=== PATIENT | male | born 1955 | race Caucasian/White ===

== ENCOUNTER 2016-05-05 14:18 | Inpatient (IN) | payer OTHER, MEDICARE ==
[2016-05-05] MEDS ORDERED: ONDANSETRON 4 MG TAB.RAPDIS PO ONE (14:28)
--- NOTE | 2016-05-05 14:28 | ER Document Report ---
ED Medical Screen (RME) - General Stated Complaint: ABDOMINAL PAIN Notes: 60 yo male c/o n/v today, generalized abdominal pain. occasional sharp pain in chest epigastric area with vomiting. on home O2. hx/o COPD. TRAVEL OUTSIDE OF THE [place] IN LAST 30 DAYS: No - Related Data Allergies/Adverse Reactions: Heparin Analogues [Heparin Agents] Allergy (Severe, Verified 10/21/15 00:03) Thrombocytopenia heparinoids [Heparinoids] Allergy (Severe, Verified 10/21/15 00:03) Thrombocytopenia codeine [Codeine] Allergy (Unknown, Verified 10/21/15 00:03) GI upset Penicillins Allergy (Unknown, Verified 10/21/15 00:03) Swelling doxycycline Allergy (Verified 04/13/16 08:48) Past Medical History - Social History Family history: CAD - Past Medical History Cardiac Medical History: Reports: Hx Congestive Heart Failure - Left ventricular diastolic dysfunction, Hx Coronary Artery Disease, Hx Heart Attack, Hx Pulmonary Embolism Denies: Hx Hypercholesterolemia, Hx Hypertension Pulmonary Medical History: Reports: Hx Asthma, Hx Bronchitis, 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 Denies: Hx Hepatitis Musculoskeltal Medical History: Denies Hx Arthritis Psychiatric Medical History: Denies: Hx Depression Infectious Medical History: Denies: Hx Hepatitis Past Surgical History: Reports: Other - Left chest tube insertion. - Immunizations Hx Diphtheria, Pertussis, Tetanus Vaccination: Yes
[2016-05-05 15:08] LABS: ALANINE AMINOTRANSFERASE 47 U/L (21-72); ALBUMIN 2.4 g/dL (3.5-5.0); ALKALINE PHOSPHATASE 206 U/L (38-126); ANION GAP 9 (5-19); ASPARTATE AMINO TRANSFERASE 47 U/L (17-59); BILIRUBIN,TOTAL 2.1 mg/dL (0.2-1.3); BLOOD UREA NITROGEN 19 mg/dL (7-20); CALCIUM 7.6 mg/dL (8.4-10.2); CARBON DIOXIDE 28 mmol/L (22-30); CHLORIDE 101 mmol/L (98-107); CREATINE KINASE 57 U/L (55-170); CREATININE RESULT 1.14 mg/dL (0.52-1.25); GLUCOSE 123 mg/dL (75-110); LIPASE 127.9 U/L (23-300); POTASSIUM 3.9 mmol/L (3.6-5.0); SODIUM 138.1 mmol/L (137-145)
[2016-05-05 15:19] LABS: CREATINE KINASE MB 0.57 ng/mL (<4.55)
[2016-05-05 15:20] LABS: TROPONIN I < 0.012 ng/mL
[2016-05-05 15:31] LABS: HEMATOCRIT 42.9 % (37.9-51.0); HEMOGLOBIN 14.4 g/dL (13.5-17.0); HGB HCT DIFFERENCE 0.3; MEAN CORPUSCULAR HEMOGLOBIN 30.6 pg (27.0-33.4); MEAN CORPUSCULAR HGB CONC 33.7 g/dL (32.0-36.0); MEAN CORPUSCULAR VOLUME 91 fl (80-97); RED BLOOD COUNT 4.72 10^6/uL (4.35-5.55); RED CELL DISTRIBUTION WIDTH 18.6 % (11.5-14.0); WHITE BLOOD COUNT 19.7 10^3/uL (4.0-10.5)
[2016-05-05 15:57] LABS: BASOPHILS % (MANUAL) 0 % (0-2); EOSINOPHILS % (MANUAL) 3 % (0-6); LYMPHOCYTES % (MANUAL) 5 % (13-45); TOTAL CELLS COUNTED 100
[2016-05-05 15:58] LABS: ANISOCYTOSIS 1+; TOXIC GRANULATION SLIGHT
[2016-05-05] MEDS ORDERED: NORMAL SALINE 1000 ML 500 ML IV ONE (16:47)
[2016-05-05] MEDS ORDERED: VANCOMYCIN HCL INJ 1000 MG VIAL IV ONE (16:48)
[2016-05-05] MEDS ORDERED: CEFTRIAXONE 1 GM/D5W RTU 50 ML IV ONE (16:48)
[2016-05-05] MEDS ORDERED: LEVOFLOXACIN 750 MG/D5W RTU 150 ML IV ONE (16:48)
[2016-05-05] MEDS ORDERED: AZTREONAM INJ 1 GM VIAL IV ONE (16:48)
[2016-05-05 17:50] LABS: APPEARANCE,URINE SLIGHTLY-CLOUDY; BILIRUBIN,URINE NEGATIVE (NEGATIVE); GLUCOSE, URINE NEGATIVE (NEGATIVE); KETONES,URINE NEGATIVE (NEGATIVE); LEUKOCYTE ESTERASE,URINE NEGATIVE (NEGATIVE); NITRITE,URINE NEGATIVE (NEGATIVE); PROTEIN,URINE NEGATIVE (NEGATIVE); URINE SPECIFIC GRAVITY 1.016; UROBILINOGEN,URINE NEGATIVE mg/dL (<2.0)
[2016-05-05] MEDS ORDERED: ONDANSETRON HCL INJ/PF 4 MG/2 ML SDV IV ONE (18:50)
[2016-05-05] MEDS ORDERED: NORMAL SALINE 1000 ML 1,000 ML IV ONE (18:50)
[2016-05-05] MEDS ORDERED: MORPHINE SULFATE 10 MG/ML INJ IV PRN (18:53)
--- NOTE | 2016-05-05 18:53 | ER Document Report ---
ED General - General Chief Complaint: Abdominal Pain Stated Complaint: ABDOMINAL PAIN Cannot obtain history due to: Unstable vital signs Notes: Patient is a 60-year-old male with past history of alpha-1 antitrypsin deficiency with a history of severe emphysema oxygen dependence 3 L at baseline , liver cirrhosis, hypotension at baseline who presents with 3 days of persistent vomiting, inability to tolerate even clear liquids, diffuse abdominal pain, progressively worsening shortness of breath. Nothing improves or worsens the symptoms. He has not seen his primary care physician regarding today's concerns. He was recently just discharged from the ICU. No new medications. Describes the pain in his abdomen as a constant, dull, aching pain. Nothing improves or worsens this pain. Denies a history of similar symptoms in the past. TRAVEL OUTSIDE OF THE [place] IN LAST 30 DAYS: No - Related Data Allergies/Adverse Reactions: Heparin Analogues [Heparin Agents] Allergy (Severe, Verified 05/05/16 14:28) Thrombocytopenia heparinoids [Heparinoids] Allergy (Severe, Verified 05/05/16 14:28) Thrombocytopenia codeine [Codeine] Allergy (Unknown, Verified 05/05/16 14:28) GI upset Penicillins Allergy (Unknown, Verified 05/05/16 14:28) Swelling doxycycline Allergy (Verified 05/05/16 14:28) Past Medical History - Social History Smoking Status: Never Smoker Chew tobacco use (# tins/day): No Frequency of alcohol use: None Drug Abuse: None Lives with: Spouse/Significant other Family History: CAD, Hypertension, Other - CHF Patient has suicidal ideation: No Patient has homicidal ideation: No - Past Medical History Cardiac Medical History: Reports: Hx Congestive Heart Failure - Left ventricular diastolic dysfunction, Hx Coronary Artery Disease, Hx Heart Attack, Hx Pulmonary Embolism Denies: Hx Hypercholesterolemia, Hx Hypertension Pulmonary Medical History: Reports: Hx Asthma, Hx Bronchitis, 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 Denies: Hx Hepatitis Musculoskeltal Medical History: Denies Hx Arthritis Psychiatric Medical History: Denies: Hx Depression Infectious Medical History: Denies: Hx Hepatitis Past Surgical History: Reports: Other - Left chest tube insertion. - Immunizations Hx Diphtheria, Pertussis, Tetanus Vaccination: Yes Hx Pneumococcal Vaccination: 04/05/14 Review of Systems - Review of Systems Notes: Constitutional: Negative for fever. HENT: Negative for sore throat. Eyes: Negative for visual changes. Cardiovascular: Negative for chest pain. Respiratory: Positive for shortness of breath. Gastrointestinal: Positive for abdominal pain and vomiting. Genitourinary: Negative for dysuria. Musculoskeletal: Negative for back pain. Skin: Negative for rash. Neurological: Negative for headaches, weakness or numbness. 10 point ROS negative except as marked above and in HPI. Physical Exam - Vital signs Vitals: Temp Pulse Resp BP Pulse Ox 98.6 F 113 H 22 H 95/55 L 93 05/05/16 14:28 05/05/16 14:28 05/05/16 14:28 05/05/16 14:28 05/05/16 14:28 Interpretation: Hypotensive, Tachycardic, Tachypneic Notes: PHYSICAL EXAMINATION: GENERAL: Chronically ill in appearance and in no acute distress HEAD: Atraumatic, normocephalic. EYES: Pupils equal round and reactive to light, extraocular movements intact, sclera anicteric, conjunctiva are normal. ENT: nares patent, oropharynx clear without exudates. Moderately dry mucous membranes. NECK: Normal range of motion, supple without lymphadenopathy LUNGS: Diffuse wheezing in all lung med[place]. Mildly diminished air movement throughout. HEART: Regular tachycardia without murmurs ABDOMEN: Distended and with a fluid wave. Diffuse tenderness with voluntary guarding throughout. No rebound tenderness. EXTREMITIES: Trace edema in the bilateral lower extremities. NEUROLOGICAL: No focal neurological deficits. Moves all extremities spontaneously and on command. PSYCH: Normal mood, normal affect. SKIN: Warm, Dry, normal turgor, no rashes or lesions noted. Course - Re-evaluation Re-evalutation: 05/05/16 1720 Patient arrives ill in appearance, hypotensive and tachycardic. Patient does have baseline hypertension but not to this degree of severity. His normal systolics are in the upper 90s. Exam reveals a diffusely tender abdomen. Patient does meet sepsis criteria at time of arrival in my primary concern at this point his spontaneous bacterial peritonitis vs HCAP. Fluids, broad- spectrum IV antibiotics, and antiemetics have been administered. Patient continues on senior buyer planner. 1840-patient continues to be ill in appearance. Minimal improvement after infusion of 1 L of IV fluids. Antibiotics have been infused. Patient's abdomen remains diffusely tender. Peritoneal tap has been completed, fluid is clear in color. This has been sent for analysis. He remains critically ill this time. 05/05/16 22:32 Patient states he feels improved after fluids and anti-emetics. No evidence of SBP on labs. CT shows ileus but no clear obstruction but this would explain his vomiting and abdominal pain. Will continue to cover for possible HCAP. Repeat blood pressure at this time shows systolics in the 90s, tachycardia improved in the low 100s. Dr. Urbina has accepted for admission at this time. - Vital Signs Vital signs: Temp Pulse Resp BP Pulse Ox 99.3 F 113 H 18 72/34 L 91 L 05/05/16 18:16 05/05/16 14:28 05/05/16 22:31 05/05/16 23:09 05/05/16 22:31 - Laboratory Result Diagrams: 05/05/16 14:30 05/05/16 14:30 Laboratory results interpreted by me: 05/05/16 05/05/16 05/05/16 14:30 14:30 19:00 WBC 19.7 H RDW 18.6 H Plt Count 104 L Seg Neuts % (Manual) 85 H Lymphocytes % (Manual) 5 L Abs Neuts (Manual) 16.7 H Glucose 123 H Lactic Acid 2.3 H Calcium 7.6 L Total Bilirubin 2.1 H Alkaline Phosphatase 206 H Total Protein 6.0 L Albumin 2.4 L - Diagnostic Test Radiology reviewed: Image reviewed, Reports reviewed - EKG Interpretation by Me Additional EKG results interpreted by me: 05/06/16 00:34 Sinus tachycardia. Rate 107. No ST elevations or depressions. QTC 443. Procedures - Paracentesis RLQ Consent obtained: Yes - Verbal Paracentesis pre-procedure: Sterile PPE donned, Chloraprep applied Needle size: 22 Paracentesis location: RLQ Amount/type of drainage: 10 cc Number of attempts: 2 Ultrasound guided: Yes Complications: No Critical Care Note - Critical Care Note Total time excluding time spent on procedures (mins): 40 Comments: Critical care time spent obtaining history from patient or surrogate, discussions with consultants, development of treatment plan with patient or surrogate, evaluation of patient's response to treatment, examination of patient , ordering and performing treatments and interventions, ordering and review of laboratory studies, re-evaluation of patient's condition, ordering and review of radiographic studies and review of old charts Discharge - Discharge Clinical Impression: Ileus Hypotension Qualifiers: Hypotension type: unspecified hypotension type Qualified Code(s): I95.9 - Hypotension, unspecified Leukocytosis Qualifiers: Leukocytosis type: unspecified Qualified Code(s): D72.829 - Elevated white blood cell count, unspecified Cirrhosis of liver with ascites Qualifiers: Hepatic cirrhosis type: unspecified hepatic cirrhosis Qualified Code(s): K74.60 - Unspecified cirrhosis of liver Acute and chronic respiratory failure Qualifiers: Respiratory failure complication: hypoxia Qualified Code(s): J96.21 - Acute and chronic respiratory failure with hypoxia Sepsis Qualifiers: Sepsis type: sepsis due to unspecified organism Qualified Code(s): A41.9 - Sepsis, unspecified organism Condition: Critical Disposition: ADMITTED INPATIENT Admitting Provider: [facility] Unit Admitted: [facility]
[2016-05-05 19:59] LABS: FLUID TYPE PERITONEAL
[2016-05-05 20:00] LABS: FLUID APPEARANCE SLIGHTLY HAZY; FLUID RBC DILUENT USED NONE USED; FLUID RBC SIDE 1 93; FLUID RBC SIDE 2 95
[2016-05-05 20:01] LABS: FLUID RBC DILUTION FACTOR 1; TOTAL RBC SQUARES COUNTED FLD 225
[2016-05-05] MEDS ORDERED: INSULIN LISPRO 100 UNIT/ML 3 ML VIAL SUBCUT PRN (23:57)
[2016-05-05] MEDS ORDERED: DEXTROSE 50%-WATER 25 GM/50 ML DISP.SYRIN IV PRN ×2 (23:57)
[2016-05-05] MEDS ORDERED: DEXTROSE 40% GEL 15 GM TUBE PO PRN ×2 (23:57)
[2016-05-05] MEDS ORDERED: GLUCAGON,HUMAN RECOMB 1 MG INJ IM PRN (23:57)
[2016-05-06 00:07] LABS: ADD ON TESTING BLD IN LAB ACKNOWLEDGE
[2016-05-06 00:15] LABS: MAGNESIUM 1.7 mg/dL (1.6-2.3)
[2016-05-06 00:36] LABS: PROTHROMBIN TIME 19.2 SEC (11.4-15.4)
[2016-05-06 00:37] LABS: PARTIAL THROMBOPLASTIN TIME 30.5 SEC (23.5-35.8)
--- NOTE | 2016-05-06 00:43 | PDOC H&P ---
History of Present Illness Admission Date/PCP: 05/05/16 22:56 DUARTE YAP, [place], [place] Cards DR. Norris Patient complains of: abd pain History of Present Illness: CHATO BRAXTON SR is a 60 year old male, with underlying alpha 1 antitrypsin deficiency, with COPD and cirrhosis secondary to same, along with chronic diastolic congestive heart failure, well known to the hospitalist service for multiple admissions for respiratory problems, who presents to the emergency room for evaluation of above complaint. Patient has been discussed with emergency room physician who evaluated the patient. Onset of combination cramping and pressure-like mostly periumbilical pain the morning of the . Nausea and 3 episodes of vomiting. Normal bowel movement that morning, but none since then. Possibly flatus with urination since then. No prior nasogastric tube requirement for bowel obstruction. Chronic intermittent dysuria. No diarrhea. Chronic chills. No fever. No change in his chronic shortness of breath. No unusual cough. Several day history of bilateral calf cramping. Intermittent hypotension, with systolic pressures down into the 70s, which has responded to IV fluid. He has chronic borderline blood pressures, on midodrine for same. Diagnostic paracentesis performed by the emergency room physician. Results noted. Hospitalized on our service April 12 through the of last year with final diagnoses including acute on chronic respiratory failure with hypoxia, COPD exacerbation, and supratherapeutic INR. Copies of the history and physical and discharge summary have been reviewed. No hospital stay since then. No change in his discharge medications.. Laboratory results are listed in [facility] and are reviewed. X-ray summary results are listed below, with full report(s) reviewed. . EKG reviewed . Social history/personal habits: . Has children. On disability due to health problems. No use of alcohol tobacco or illicit drugs. Allergies/adverse reactions are listed in [facility] and are reviewed. Home medications are reviewed by discussion with patient and , and review of his recent discharge summary and are to be reconciled by nursing staff in [facility]. [facility] medications [facility] may not accurately reflect patient's true medications, dosages, and/or frequencies. REVIEW OF SYSTEMS: Constitutional: See history and present illness. Eyes: Wears glasses. ENT: No swallowing problems or complaints. No hearing problems or complaints. Pulmonary: See history and present illness. Cardiovascular: No current complaints, including chest pain. Gastrointestinal: See history and present illness. Skin: No current complaints, including rashes. Hematologic: Easy bruising. Neurologic: No current complaints, including numbness or tingling. Musculoskeletal: Joint pain from arthritis. Psychiatric: Anxiety depression; denies suicidal or homicidal ideation. Endocrine: No current complaints, including polyuria. Genitourinary: No current complaints, including dysuria. PHYSICAL EXAMINATION: 5 feet 9 inches tall. 84.3 kg. BMI 27.4 kg/m. Blood pressure 100/60 manual in the right arm; 95/62 in the left arm. Pulse 103 and regular. 90% saturation on 2 L oxygen per nasal cannula. Respirations are 30 and unlabored. Temperature 99.3. is present at his side; patient approves. Slightly overweight otherwise well-nourished well-developed though chronically ill-appearing male who appears a number of years older than his stated age. Also appears not to feel very well. Otherwise, pleasant awake alert and cooperative. Mildly anxious, without agitation. Skin is warm and dry. No grossly obvious evidence of rash in areas of skin examined. No subcutaneous nodules palpated. ENT: Hearing grossly normal to normal conversation. Tongue midline on protrusion pink and slightly tacky. Eyes: No scleral icterus. Pupils equal and reactive to light at 4 mm. Ogema conjunctivae. Neck is supple and nontender to gentle active range of motion and palpation. Midline trachea. No palpable thyroid nodule mass enlargement or tenderness. Lymphatic: No palpable cervical or clavicular nodes. Neck and lymphatic exams limited by patient body habitus. Psychiatric: Reasonable insight into acute and chronic medical issues. Oriented to time location and why here. Lungs: Auscultation reveals clear and equal breath sounds bilaterally. No use of accessory respiratory muscles. Cardiovascular: Heart regular rate and rhythm, without gallop murmur or rub. No carotid or abdominal aortic bruits. Mild bilateral symmetric calf ankle and pedal edema. Faintly palpable dorsalis pedis pulses. Abdomen: soft, obese, moderately distended with positive bowel sounds. Mild diffuse abdominal tenderness, which increases to rather prominent somewhat point tenderness at his umbilicus. Small umbilical hernia, which is easily reducible. Unable to adequately evaluate abdomen for masses or organomegaly due to body habitus, distention, and discomfort.. Extremities: Feet are warm and dry. Bilateral mild symmetric calf tenderness to compression, without venous cord. No grossly obvious visual evidence of calf swelling. Gentle manipulation of lower extremities fails to reveal any obvious evidence of injury or instability to knees hips or ankles. Neurologic: Moves upper extremities grossly normally. Patellar reflexes absent. Absent Babinski. Light touch is intact at feet. Dorsiflexion and plantarflexion of feet 5 / 5 and symmetric. Past Medical History Cardiac Medical History: Reports: Congestive Heart Failure - Left ventricular diastolic dysfunction, Coronary Artery Disease, Myocardial Infarction, Pulmonary Embolism Denies: Hyperlipidema, Hypertension Pulmonary Medical History: Reports: Asthma, Bronchitis, Chronic Obstructive Pulmonary Disease (COPD) - secondary to alpha-1 antitrypsin deficiency, Pneumonia Denies: Tuberculosis Neurological Medical History: Denies: Seizures Endocrine Medical History: Reports: Diabetes Mellitus Type 2 Denies: Hyperthyroidism, Hypothyroidism GI Medical History: Reports: Cirrhosis - [place] secondary to alpha-1 antitrypsin deficiency., Gastroesophageal Reflux Disease Denies: Hepatitis Musculoskeltal Medical History: Denies: Arthritis Psychiatric Medical History: Denies: Depression Hematology: Denies: Anemia Past Surgical History Past Surgical History: Reports: Other - Left chest tube insertion. Social History Information Source: Patient, Emergency Med Personnel, [facility] Records Lives with: Spouse/Significant other Smoking Status: Never Smoker Frequency of Alcohol Use: None Hx Recreational Drug Use: No Drugs: None Hx Prescription Drug Abuse: No - Advance Directive Resuscitation Status: Full Code Surrogate healthcare decision maker:: Family History Family History: CAD, Hypertension, Other - CHF Parental Family History Reviewed: Yes Children Family History Reviewed: Yes Sibling(s) Family History Reviewed.: Yes Medication/Allergy Home Medications: Gabapentin 25 mg PO TID 01/13/16 Potassium Chloride 20 meq PO BID 01/13/16 Tamsulosin HCl 0.4 mg PO DAILY 01/13/16 Warfarin Sodium 2 mg PO ASDIR PRN 01/13/16 Albuterol Sulfate [Ventolin 0.083% Neb 2.5 mg/3 mL Ampul] 2.5 mg NEB Q6HP PRN # 1 pkg 01/15/16 Ipratropium/Albuterol Sulfate [Duoneb 3 ml Ampul] 1 vial IH Q4H PRN 03/04/16 Albuterol Sulfate [Proair HFA Inhalation Aerosol 8.5 gm MDI] 2 puff IH Q4HP PRN #1 hfa.[email or web address] 03/06/16 Fluticasone Propionate [Flonase Nasal [place] 50 Mcg/[place] 16 gm] 2 spray NASL DAILY spray.pump 03/06/16 Ondansetron [Zofran Odt 4 mg Tablet] 4 mg PO Q6HP PRN tab.rapdis 03/06/16 Bumetanide [Bumex 1 mg Tablet] 1 mg PO BID #60 tablet 04/15/16 Levofloxacin [Levaquin 750 mg Tablet] 750 mg PO DAILY #7 tablet 04/15/16 Midodrine HCl 10 mg PO TID #90 tablet 04/15/16 Prednisone [Deltasone 10 mg Tablet] 10 mg PO DAILY #30 tablet 04/15/16 Prednisone [Deltasone 20 mg Tablet] 40 mg PO DAILY #28 tablet 04/15/16 Spironolactone [Aldactone 25 mg Tablet] 25 mg PO DAILY #30 tablet 04/15/16 Allergies/Adverse Reactions: Heparin Analogues [Heparin Agents] Allergy (Severe, Verified 05/05/16 14:28) Thrombocytopenia heparinoids [Heparinoids] Allergy (Severe, Verified 05/05/16 14:28) Thrombocytopenia codeine [Codeine] Allergy (Unknown, Verified 05/05/16 14:28) GI upset Penicillins Allergy (Unknown, Verified 05/05/16 14:28) Swelling doxycycline Allergy (Verified 05/05/16 14:28) Physical Exam Vital Signs: Temp Pulse Resp BP Pulse Ox 99.3 F 113 H 18 72/34 L 91 L 05/05/16 18:16 05/05/16 14:28 05/05/16 22:31 05/05/16 23:09 05/05/16 22:31 Results Impressions: Chest X-Ray 05/05/16 14:28 IMPRESSION: COPD. Extensive bullous changes in the bases. Small pleural effusions. No focal consolidation. Abdomen/Pelvis CT 05/05/16 20:12 IMPRESSION: 1. MILD TO MODERATE SMALL BOWEL DILATION. I SUSPECT THAT THIS IS PROBABLY DUE TO ILEUS ALTHOUGH CANNOT DEFINITELY RULE OUT POSSIBILITY OF DISTAL MECHANICAL OBSTRUCTION. 2. MILDLY IRREGULAR CONTOUR OF THE LIVER. THE PATIENT HAS A HISTORY OF CIRRHOSIS. THERE IS MILD SPLENOMEGALY AND MODERATE ASCITES, PRESUMED SECONDARY TO THE PATIENT'S CIRRHOSIS. 3. COLONIC DIVERTICULOSIS WITH NO CT FINDINGS OF ACUTE DIVERTICULITIS. 4. 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 5. NO OTHER SIGNIFICANT OR ACUTE FINDING IN THE ABDOMEN OR PELVIS ON CT SCAN WITH IV CONTRAST. Assessment & Plan - Diagnosis (1) Abnormal CT of the abdomen Is this a current diagnosis for this admission?: YesPlan: Have discussed with Dr. Teran, airline reservation agent surgeon, who will evaluate the patient and get back in touch with me. Suspect this may be partial small bowel obstruction and may need nasogastric tube. If surgery is felt necessary, will likely require transfer to a tertiary center. (2) Elevated LFTs Is this a current diagnosis for this admission?: YesPlan: Follow-up chemistry. (3) Hypotension Qualifiers: Hypotension type: unspecified hypotension type Qualified Code(s): I95.9 - Hypotension, unspecified Is this a current diagnosis for this admission?: YesPlan: ICU admission. IV fluid boluses. Vasopressor as needed. (4) Nausea & vomiting Qualifiers: Vomiting Intractability: unspecified Is this a current diagnosis for this admission?: Yes (5) Periumbilical pain Is this a current diagnosis for this admission?: YesPlan: See above comments under abnormal CT scan of abdomen. I have strongly encouraged patient not to get out of bed without notifying staff , to avoid a fall with injury. Knee high SCDs for DVT prophylaxis; with thrombocytopenia, will forego Lovenox or heparin at this point in time. Impression and plans were discussed with patient, and , both of whom concur. Time spent in evaluation and management of patient: 65 critical care minutes. (6) COPD (chronic obstructive pulmonary disease) Qualifiers: COPD type: unspecified COPD Qualified Code(s): J44.9 - Chronic obstructive pulmonary disease, unspecified Is this a current diagnosis for this admission?: YesPlan: Stable at present. Resume home medications as appropriate once these have been reviewed. (7) Anticoagulated Is this a current diagnosis for this admission?: YesPlan: PT/INR and PTT are pending. Recent hospital stay with supratherapeutic INR. (8) Diastolic CHF Qualifiers: Congestive heart failure chronicity: chronic Qualified Code(s): I50.32 - Chronic diastolic (congestive) heart failure Is this a current diagnosis for this admission?: YesPlan: Clinically stable at present. Resume home medications as appropriate once these have been reviewed. (9) Thrombocytopenia Is this a current diagnosis for this admission?: YesPlan: Follow-up CBC with differential. - Inpatient Certification Based on my medical assessment, after consideration of the patient's comorbidities, presenting symptoms, or acuity I expect that the services needed warrant INPATIENT care.: Yes I certify that my determination is in accordance with my understanding of Medicare's requirements for reasonable and necessary INPATIENT services [42 CFR 412.3e].: Yes Medical Necessity: Need Close Monitoring Due to Risk of Patient Decompensation, Need For IV Fluids, Need For Continuous Telemetry Monitoring, Need for Nebulizer Therapy and Monitoring of Response, Risk of Complication if Not Cared For in Hospital, Risk of Diagnosis Which Will Require Inpatient Eval/Care/ Monitoring Post Hospital Care: D/C or Transfer Summary
[2016-05-06 00:48] LABS: BLOOD UREA NITROGEN 22 mg/dL (7-20); CREATININE RESULT 1.06 mg/dL (0.52-1.25); GLUCOSE 95 mg/dL (75-110); POTASSIUM 4.1 mmol/L (3.6-5.0)
[2016-05-06 00:55] LABS: ANION GAP 6 (5-19); CARBON DIOXIDE 25 mmol/L (22-30); CHLORIDE 105 mmol/L (98-107); SODIUM 136.1 mmol/L (137-145)
[2016-05-06 00:59] LABS: CALCIUM 7.2 mg/dL (8.4-10.2)
[2016-05-06] MEDS ORDERED: DEXTROSE 5%-WATER 250 ML with NOREPINEPHRINE BITARTRATE 4 MG IV PRN ×2 (02:32)
[2016-05-06] MEDS ORDERED: NORMAL SALINE 1000 ML 500 ML IV ONE (02:32)
[2016-05-06] MEDS ORDERED: PHARMACY COMMUNICATION ORDER MC NR (03:00)
--- NOTE | 2016-05-06 03:40 | PDOC TRANSFER SUMMARY ---
General Admission Date/PCP: 05/06/16 00:24 ALFA GRANGER Resuscitation Status: Full Code - Transfer Diagnosis (1) Abnormal CT of the abdomen Current Visit: Yes (2) Elevated LFTs Current Visit: Yes (3) Hypotension Current Visit: Yes (4) Nausea & vomiting Current Visit: Yes (5) Periumbilical pain Current Visit: Yes (6) COPD (chronic obstructive pulmonary disease) Current Visit: Yes (7) Anticoagulated Current Visit: Yes (8) Diastolic CHF Current Visit: Yes (9) Thrombocytopenia Current Visit: Yes (10) Cirrhosis of liver with ascites Current Visit: Yes (11) Oipab-4-sldgrkkdjei deficiency Current Visit: Yes (12) History of pulmonary embolism Current Visit: Yes - Transfer Medications Home Medications: Gabapentin 25 mg PO TID 01/13/16 Potassium Chloride 20 meq PO BID 01/13/16 Tamsulosin HCl 0.4 mg PO DAILY 01/13/16 Warfarin Sodium 2 mg PO ASDIR PRN 01/13/16 Ipratropium/Albuterol Sulfate [Duoneb 3 ml Ampul] 1 vial IH Q4H PRN 03/04/16 Transfer Medications: Current Medications Albuterol/Ipratropium (Duoneb 3 Ml Ampul) 3 ml NEB RTQ4HP PRN PRN Reason: SHORTNESS OF BREATH Stop: 06/04/16 23:57 Dextrose (Dextrose Inj 50% Syringe (25 Gm/50 Ml)) 12.5 gm IV PRN PRN; Protocol PRN Reason: FOR BG 50-69 IN ALERT PATIENT Stop: 06/04/16 23:56 Dextrose (Dextrose Inj 50% Syringe (25 Gm/50 Ml)) 25 gm IV PRN PRN PRN Reason: Protocol Stop: 06/04/16 23:56 Glucagon (Glucagen Inj 1 Mg Vial) 1 mg IM PRN PRN; Protocol PRN Reason: Evaluate for BG < 70 Stop: 06/04/16 23:56 Glucose (Glutose 40% Gel 15 Gm Tube) 30 gm PO PRN PRN; Protocol PRN Reason: FOR BG < 50 IN ALERT PATIENT Stop: 06/04/16 23:56 Glucose (Glutose 40% Gel 15 Gm Tube) 15 gm PO PRN PRN; Protocol PRN Reason: FOR BG 50-69 IN ALERT PATIENT Stop: 06/04/16 23:56 Sodium Chloride (Nacl 0.9% 1000 Ml Iv Soln) 1,000 mls @ 250 mls/hr IV CONTINUOUS PRN PRN Reason: THIS MED IS NOT "PRN" Stop: 06/05/16 00:25 Norepinephrine Bitartrate 4 mg (/ Dextrose) 254 mls @ 0 mls/hr IV CONTINUOUS PRN; Protocol; Titrate PRN Reason: THIS MED IS NOT "PRN" Stop: 06/05/16 02:31 Insulin Human Lispro (Humalog Insulin 100 Unit/1 Ml 3 Ml Vial) 0 - 12 unit SUBCUT Q6HP PRN PRN Reason: Protocol Stop: 06/04/16 23:56 Morphine Sulfate (Morphine 10 Mg/Ml Inj) 4 mg IV Q2HP PRN Stop: 05/12/16 18:52 Pharmacy Profile Note (Medication Communication Order) 1 each [facility] .NOTICE NR Stop: 06/05/16 02:59 Sodium Chloride (Saline Flush 2.5 Ml Monoject Prefil Syrin) 2.5 ml IV Q8 JENNY Stop: 06/05/16 05:59 - Allergies Allergies/Adverse Reactions: Heparin Analogues [Heparin Agents] Allergy (Severe, Verified 05/05/16 14:28) Thrombocytopenia heparinoids [Heparinoids] Allergy (Severe, Verified 05/05/16 14:28) Thrombocytopenia codeine [Codeine] Allergy (Unknown, Verified 05/05/16 14:28) GI upset Penicillins Allergy (Unknown, Verified 05/05/16 14:28) Swelling doxycycline Allergy (Verified 05/05/16 14:28) Hospital Course Hospital Course: 05/06/2016: Patient seen in consultation by Dr. Teran, on-call general surgeon. Patient discussed in detail with Dr. Teran. He was able to reduce the umbilical hernia. However, patient remains fairly tender in the periumbilical region. While Dr. Teran does not feel the gentleman has an incarcerated hernia, and does not feel the patient has ischemic bowel or necessarily an acute abdomen at this point in time, he is concerned about the potential for same and the need for emergent/urgent surgery, which would necessarily need to be performed at a tertiary center, due to patient's multiple medical problems, including the underlying alpha 1 antitrypsin deficiency with associated COPD and cirrhosis, diastolic congestive heart failure, and history of pulmonary embolism, on chronic anticoagulation for same. Transfer to tertiary center recommended to patient and by Dr. Teran and myself. Patient agrees. NG insertion planned; Dr. Teran agrees. Patient agreeable. At 2:20 AM this morning, I spoke by phone with Dr. Reeves, senior applications engineer hospitalist at [facility]. Patient discussed in detail. He has graciously accepted the patient in transfer; beds are reportedly available. Plans discussed with patient and , both of whom concur. Patient has remained intermittently hypotensive, but fortunately has responded to IV fluids. Levophed drip will be instituted if necessary. Current time is 3: 30 AM. I was in the intensive care unit approximately 5 minutes ago; blood pressure 104/67 at that time, with Levophed drip not having been started. Patient awake alert pleasant and cooperative. Due to his intermittent hypotension, I have requested air transfer. Awaiting bed assignment. 80 minutes critical care time spent in evaluation and management of patient, including direct patient evaluation, multiple discussions with nursing staff, patient and , and contamination consultant, along with discussions with transfer center at [facility], and the accepting physician at [facility], along with entering of multiple orders into the electronic health record. Physical Exam Vital Signs: Temp Pulse Resp BP Pulse Ox 99.3 F 113 H 16 82/54 L 93 05/05/16 18:16 05/05/16 14:28 05/06/16 02:21 05/06/16 02:25 05/06/16 02:21 Results Impressions: Chest X-Ray 05/05/16 14:28 IMPRESSION: COPD. Extensive bullous changes in the bases. Small pleural effusions. No focal consolidation. Abdomen/Pelvis CT 05/05/16 20:12 IMPRESSION: 1. MILD TO MODERATE SMALL BOWEL DILATION. I SUSPECT THAT THIS IS PROBABLY DUE TO ILEUS ALTHOUGH CANNOT DEFINITELY RULE OUT POSSIBILITY OF DISTAL MECHANICAL OBSTRUCTION. 2. MILDLY IRREGULAR CONTOUR OF THE LIVER. THE PATIENT HAS A HISTORY OF CIRRHOSIS. THERE IS MILD SPLENOMEGALY AND MODERATE ASCITES, PRESUMED SECONDARY TO THE PATIENT'S CIRRHOSIS. 3. COLONIC DIVERTICULOSIS WITH NO CT FINDINGS OF ACUTE DIVERTICULITIS. 4. 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 5. NO OTHER SIGNIFICANT OR ACUTE FINDING IN THE ABDOMEN OR PELVIS ON CT SCAN WITH IV CONTRAST.
[2016-05-06] MEDS ORDERED: DEXTROSE 40% GEL 15 GM TUBE NG PRN ×2 (03:44)
[2016-05-06] MEDS: NORMAL SALINE 1000 ML 1,000 ML IV PRN ×3 (05:10→20:57)
[2016-05-06] MEDS ORDERED: PROMETHAZINE HCL INJ 25 MG/1 ML VIAL IV PRN (06:10)
[2016-05-06 06:42] LABS: ABSOLUTE EOSINOPHILS # (AUTO) 0.3 10^3/uL (0.0-0.6); ABSOLUTE LYMPHOCYTES (AUTO) 0.5 10^3/uL (0.5-4.7); ABSOLUTE MONOCYTES (AUTO) 0.4 10^3/uL (0.1-1.4); BASOPHILS % (AUTO) 0.2 % (0-2); EOSINOPHILS % (AUTO) 3.6 % (0-6); HEMATOCRIT 36.7 % (37.9-51.0); HEMOGLOBIN 12.6 g/dL (13.5-17.0); HGB HCT DIFFERENCE 1.1; LYMPHOCYTES % (AUTO) 5.3 % (13-45); MEAN CORPUSCULAR HGB CONC 34.5 g/dL (32.0-36.0); MEAN CORPUSCULAR VOLUME 90 fl (80-97); MONOCYTES % (AUTO) 4.8 % (3-13); RED BLOOD COUNT 4.08 10^6/uL (4.35-5.55); RED CELL DISTRIBUTION WIDTH 18.2 % (11.5-14.0); SEGMENTED NEUTROPHILS % (AUTO) 86.1 % (42-78); WHITE BLOOD COUNT 9.3 10^3/uL (4.0-10.5)
[2016-05-06 06:45] LABS: ALANINE AMINOTRANSFERASE 46 U/L (21-72); ALBUMIN 2.1 g/dL (3.5-5.0); ALKALINE PHOSPHATASE 144 U/L (38-126); ANION GAP 7 (5-19); ASPARTATE AMINO TRANSFERASE 41 U/L (17-59); BILIRUBIN,TOTAL 1.6 mg/dL (0.2-1.3); BLOOD UREA NITROGEN 21 mg/dL (7-20); CALCIUM 7.5 mg/dL (8.4-10.2); CARBON DIOXIDE 24 mmol/L (22-30); CHLORIDE 108 mmol/L (98-107); CREATININE RESULT 1.01 mg/dL (0.52-1.25); GLUCOSE 91 mg/dL (75-110); POTASSIUM 4.1 mmol/L (3.6-5.0); SODIUM 138.8 mmol/L (137-145); TOTAL PROTEIN 5.1 g/dL (6.3-8.2)
--- NOTE | 2016-05-06 09:43 | EKG REPORT ---
SEVERITY:- ABNORMAL ECG - SINUS TACHYCARDIA LOW VOLTAGE WITH RIGHT AXIS DEVIATION BORDERLINE R WAVE PROGRESSION, ANTERIOR LEADS BORDERLINE T ABNORMALITIES, ANT-LAT LEADS : Confirmed by: Olimpia Narayan MD 06-May-2016 09:41:23
--- NOTE | 2016-05-06 09:52 | PDOC CONSULTATION ---
History of Present Illness Admission Date/PCP: 05/06/16 00:24 ALFA GRANGER History of Present Illness: 60-year-old white male with multiple comorbidities including congestive heart failure, left ventricular diastolic dysfunction, coronary artery disease, heart attack, pulmonary embolism one year ago, asthma, bronchitis, COPD, alpha-1 antitrypsin deficiency, pneumonia, diabetes mellitus type II, cirrhosis, ascites , GERD, arthritis, anxiety, depression. He reports recent admission to the hospital on 04/15/2016 for pneumonia. Status post discharge he was at home and is normal state of health, which is somewhat compromised. Then, 2 days ago he had the onset of cramps in his legs and hands as well as extremely sore muscles. Yesterday he had continued cramps and sore muscles as well as the onset of abdominal pain and vomiting. He had a bowel movement the morning of 05/05/2016. He is passing flatus and has chronic fecal incontinence when passing flatus. He reports he was nauseated and vomiting bile, not food nor feculent material. He reports the pain was severe. He reports improvement in the pain since presenting to the hospital. In addition to the above symptoms he reports abdominal swelling, chills but no fever. He also reports increased shortness of breath over his baseline shortness of breath. He is a pulmonary cripple. He has a home pulse oximeter monitor. He describes having oxygen saturations in the low 70s after taking short walks in the house from room to room. Past Medical History Cardiac Medical History: Reports: Congestive Heart Failure - Left ventricular diastolic dysfunction, Coronary Artery Disease, Myocardial Infarction, Pulmonary Embolism Denies: Hyperlipidema, Hypertension Pulmonary Medical History: Reports: Asthma, Bronchitis, Chronic Obstructive Pulmonary Disease (COPD) - secondary to alpha-1 antitrypsin deficiency, Pneumonia, Other - Alpha 1 antitrypsin deficiency Denies: Tuberculosis Neurological Medical History: Denies: Seizures Endocrine Medical History: Reports: Diabetes Mellitus Type 2 Denies: Hyperthyroidism, Hypothyroidism GI Medical History: Reports: Cirrhosis - Likely secondary to alpha-1 antitrypsin deficiency., Gastroesophageal Reflux Disease Denies: Hepatitis Musculoskeltal Medical History: Reports: Arthritis Psychiatric Medical History: Reports: Depression, General Anxiety Disorder Hematology: Denies: Anemia Past Surgical History Past Surgical History: Reports: Other - Left chest tube insertion. Remote EGD and colonoscopy. Social History Information Source: Patient Lives with: Spouse/Significant other - Accompanied by . Smoking Status: Former Smoker Frequency of Alcohol Use: None Hx Recreational Drug Use: No Drugs: None Hx Prescription Drug Abuse: No - Advance Directive Resuscitation Status: Full Code Family History Family History: CAD, CVA, DM, Hypertension, Malignancy, Other - CHF Parental Family History Reviewed: Yes Children Family History Reviewed: Yes Sibling(s) Family History Reviewed.: Yes Medication/Allergy Home Medications: Gabapentin 25 mg PO TID 01/13/16 Potassium Chloride 20 meq PO BID 01/13/16 Tamsulosin HCl 0.4 mg PO DAILY 01/13/16 Warfarin Sodium 2 mg PO ASDIR PRN 01/13/16 Albuterol Sulfate [Ventolin 0.083% Neb 2.5 mg/3 mL Ampul] 2.5 mg NEB Q6HP PRN # 1 pkg 01/15/16 Ipratropium/Albuterol Sulfate [Duoneb 3 ml Ampul] 1 vial IH Q4H PRN 03/04/16 Albuterol Sulfate [Proair HFA Inhalation Aerosol 8.5 gm MDI] 2 puff IH Q4HP PRN #1 hfa.aer.ad 03/06/16 Fluticasone Propionate [Flonase Nasal Harmony 50 Mcg/Harmony 16 gm] 2 spray NASL DAILY spray.pump 03/06/16 Ondansetron [Zofran Odt 4 mg Tablet] 4 mg PO Q6HP PRN tab.rapdis 03/06/16 Bumetanide [Bumex 1 mg Tablet] 1 mg PO BID #60 tablet 04/15/16 Levofloxacin [Levaquin 750 mg Tablet] 750 mg PO DAILY #7 tablet 04/15/16 Midodrine HCl 10 mg PO TID #90 tablet 04/15/16 Prednisone [Deltasone 10 mg Tablet] 10 mg PO DAILY #30 tablet 04/15/16 Prednisone [Deltasone 20 mg Tablet] 40 mg PO DAILY #28 tablet 04/15/16 Spironolactone [Aldactone 25 mg Tablet] 25 mg PO DAILY #30 tablet 04/15/16 Allergies/Adverse Reactions: Heparin Analogues [Heparin Agents] Allergy (Severe, Verified 05/05/16 14:28) Thrombocytopenia heparinoids [Heparinoids] Allergy (Severe, Verified 05/05/16 14:28) Thrombocytopenia codeine [Codeine] Allergy (Unknown, Verified 05/05/16 14:28) GI upset Penicillins Allergy (Unknown, Verified 05/05/16 14:28) Swelling doxycycline Allergy (Verified 05/05/16 14:28) Review of Systems All systems: reviewed and no additional remarkable complaints except as stated Physical Exam Vital Signs: Temp Pulse Resp BP Pulse Ox 99.1 F 94 11 L 97/60 L 97 05/06/16 03:30 05/06/16 08:00 05/06/16 08:00 05/06/16 06:20 05/06/16 08:00 Intake & Output 05/05/16 05/06/16 05/07/16 06:59 06:59 06:59 Intake Total 1828 Output Total 550 Balance -550 1828 Weight 84.7 kg General appearance: PRESENT: mild distress - Appears to be in mild distress due to labored breathing, but patient reports this is his baseline, obese Head exam: PRESENT: normocephalic Eye exam: PRESENT: EOMI Mouth exam: PRESENT: tongue midline Neck exam: ABSENT: JVD, lymphadenopathy, tenderness, thyromegaly Respiratory exam: PRESENT: decreased breath sounds Cardiovascular exam: PRESENT: RRR GI/Abdominal exam: PRESENT: ascites, distended, hernia - Umbilical hernia. Reducible but immediately recurs. On examining patient has occasional transient second of extreme tenderness and subsequently limits exam., soft, tenderness. ABSENT: firm, guarding, rebound, rigid Extremities exam: PRESENT: +1 edema. ABSENT: tenderness Musculoskeletal exam: ABSENT: tenderness Neurological exam: PRESENT: alert, oriented to person, oriented to place, oriented to time, oriented to situation Psychiatric exam: PRESENT: normal mood Skin exam: ABSENT: rash Results Laboratory Results: 05/06/16 06:25 05/06/16 06:25 05/06/16 05/06/16 06:25 06:25 WBC 9.3 RBC 4.08 L Hgb 12.6 L Hct 36.7 L MCV 90 MCH 31.0 MCHC 34.5 RDW 18.2 H Plt Count 63 L Seg Neutrophils % 86.1 H Lymphocytes % 5.3 L Monocytes % 4.8 Eosinophils % 3.6 Basophils % 0.2 Absolute Neutrophils 8.0 Absolute Lymphocytes 0.5 Absolute Monocytes 0.4 Absolute Eosinophils 0.3 Absolute Basophils 0.0 Sodium 138.8 Potassium 4.1 Chloride 108 H Carbon Dioxide 24 Anion Gap 7 BUN 21 H Creatinine 1.01 Est GFR ( Amer) > 60 Est GFR (Non-Af Amer) > 60 Glucose 91 Calcium 7.5 L Total Bilirubin 1.6 H AST 41 ALT 46 Alkaline Phosphatase 144 H Total Protein 5.1 L Albumin 2.1 L Impressions: Chest X-Ray 05/05/16 14:28 IMPRESSION: COPD. Extensive bullous changes in the bases. Small pleural effusions. No focal consolidation. Abdomen/Pelvis CT 05/05/16 20:12 IMPRESSION: 1. MILD TO MODERATE SMALL BOWEL DILATION. I SUSPECT THAT THIS IS PROBABLY DUE TO ILEUS ALTHOUGH CANNOT DEFINITELY RULE OUT POSSIBILITY OF DISTAL MECHANICAL OBSTRUCTION. 2. MILDLY IRREGULAR CONTOUR OF THE LIVER. THE PATIENT HAS A HISTORY OF CIRRHOSIS. THERE IS MILD SPLENOMEGALY AND MODERATE ASCITES, PRESUMED SECONDARY TO THE PATIENT'S CIRRHOSIS. 3. COLONIC DIVERTICULOSIS WITH NO CT FINDINGS OF ACUTE DIVERTICULITIS. 4. 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 5. NO OTHER SIGNIFICANT OR ACUTE FINDING IN THE ABDOMEN OR PELVIS ON CT SCAN WITH IV CONTRAST. KUB X-Ray 05/06/16 02:58 IMPRESSION: GI tube tip in the stomach. Status: Image reviewed by me Assessment & Plan - Diagnosis (1) Umbilical hernia Is this a current diagnosis for this admission?: YesPlan: Reducible but immediately recurs. No acute abdomen. Seems to only have fat on CT scan and palpation however may be a loop of bowel is intermittently in the hernia defect causing a partial small bowel obstruction. This highly complex patient with multiple comorbidities. He does not seem to need surgery now but I 'm not convinced he has fully declared himself yet. Recommend transfer to tertiary care center in case the patient needs surgery. Recommend initiating nothing by mouth, IV fluids, NG tube to low intermittent suction here. The patient describes a baseline low blood pressure. Recheck of 2 blood pressures while I was in the room reveal systolics in the low to mid 90s. Discussed recommendations with hospitalist who will arrange transfer. (2) Partial small bowel obstruction Is this a current diagnosis for this admission?: Yes (3) Acute and chronic respiratory failure Qualifiers: Respiratory failure complication: hypoxia Qualified Code(s): J96.21 - Acute and chronic respiratory failure with hypoxia Is this a current diagnosis for this admission?: Yes (4) Cirrhosis of liver with ascites Qualifiers: Hepatic cirrhosis type: unspecified hepatic cirrhosis Qualified Code (s): K74.60 - Unspecified cirrhosis of liver Is this a current diagnosis for this admission?: Yes (5) Oqzck-2-stkvxbfkmpx deficiency Is this a current diagnosis for this admission?: Yes (6) COPD (chronic obstructive pulmonary disease) Qualifiers: COPD type: unspecified COPD Qualified Code(s): J44.9 - Chronic obstructive pulmonary disease, unspecified Is this a current diagnosis for this admission?: Yes (7) CHF (congestive heart failure) Qualifiers: Congestive heart failure type: diastolic Congestive heart failure chronicity: unspecified congestive heart failure chronicity Qualified Code(s): I50.30 - Unspecified diastolic (congestive) heart failure Is this a current diagnosis for this admission?: Yes (8) Pulmonary embolus, left Is this a current diagnosis for this admission?: YesPlan: On anticoagulation (9) Pulmonary hypertension Is this a current diagnosis for this admission?: Yes (10) Wtsbv-0-mkmxxthsbrp deficiency Is this a current diagnosis for this admission?: Yes (11) Chronic respiratory failure with hypoxia Is this a current diagnosis for this admission?: Yes (12) Cirrhosis Qualifiers: Hepatic cirrhosis type: congenital cirrhosis Qualified Code(s): P78.81 - Congenital cirrhosis (of liver) Is this a current diagnosis for this admission?: Yes (13) Diabetes mellitus type 2 in obese Is this a current diagnosis for this admission?: Yes (14) Gastroesophageal reflux disease Qualifiers: Esophagitis presence: esophagitis presence not specified Qualified Code (s): K21.9 - Gastro-esophageal reflux disease without esophagitis Is this a current diagnosis for this admission?: Yes (15) HTN (hypertension) Is this a current diagnosis for this admission?: Yes
[2016-05-06] MEDS: LEVOFLOXACIN 750 MG/D5W RTU 150 ML IV SCH (12:33)
--- NOTE | 2016-05-06 17:15 | PDOC PROGRESS REPORT ---
Subjective Progress Note for:: 05/06/16 Subjective:: Patient feels generally better this morning. He is still having nausea but has had no vomiting since having NG tube placed. His dyspnea is at baseline. In further interviewing patient he states that he had undercooked oysters the evening prior to onset of his nausea and vomiting. Physical Exam Vital Signs: Temp Pulse Resp BP Pulse Ox 99.1 F 101 H 19 98/55 L 99 05/06/16 03:30 05/06/16 15:00 05/06/16 15:27 05/06/16 15:27 05/06/16 15:27 Intake & Output 05/05/16 05/06/16 05/07/16 06:59 06:59 06:59 Intake Total 1828 Output Total 550 800 Balance -550 1028 Weight 84.7 kg GENERAL: No acute distress HEENT: Conjunctiva clear, nonicteric, moist mucous membranes, no JVD, midline trachea. NG tube in place RESPIRATORY: Clear to auscultation bilaterally, no wheezes, no rhonchi CARDIAC: Regular rate and rhythm, no murmurs/gallops/rubs ABDOMEN: Soft, distended, nontender, positive bowel sounds, no rebound, no guarding EXTREMETIES: No edema, cyanosis, clubbing NEUROLOGIC: Alert, oriented to person/place/time, CN's grossly intact, no focal deficits SKIN: No rash, wounds PSYCH: Normal mood, normal affect Results Laboratory Results: 05/06/16 06:25 05/06/16 06:25 05/06/16 05/06/16 06:25 06:25 WBC 9.3 RBC 4.08 L Hgb 12.6 L Hct 36.7 L MCV 90 MCH 31.0 MCHC 34.5 RDW 18.2 H Plt Count 63 L Seg Neutrophils % 86.1 H Lymphocytes % 5.3 L Monocytes % 4.8 Eosinophils % 3.6 Basophils % 0.2 Absolute Neutrophils 8.0 Absolute Lymphocytes 0.5 Absolute Monocytes 0.4 Absolute Eosinophils 0.3 Absolute Basophils 0.0 Sodium 138.8 Potassium 4.1 Chloride 108 H Carbon Dioxide 24 Anion Gap 7 BUN 21 H Creatinine 1.01 Est GFR ( Amer) > 60 Est GFR (Non-Af Amer) > 60 Glucose 91 Calcium 7.5 L Total Bilirubin 1.6 H AST 41 ALT 46 Alkaline Phosphatase 144 H Total Protein 5.1 L Albumin 2.1 L Impressions: Chest X-Ray 05/05/16 14:28 IMPRESSION: COPD. Extensive bullous changes in the bases. Small pleural effusions. No focal consolidation. Abdomen/Pelvis CT 05/05/16 20:12 IMPRESSION: 1. MILD TO MODERATE SMALL BOWEL DILATION. I SUSPECT THAT THIS IS PROBABLY DUE TO ILEUS ALTHOUGH CANNOT DEFINITELY RULE OUT POSSIBILITY OF DISTAL MECHANICAL OBSTRUCTION. 2. MILDLY IRREGULAR CONTOUR OF THE LIVER. THE PATIENT HAS A HISTORY OF CIRRHOSIS. THERE IS MILD SPLENOMEGALY AND MODERATE ASCITES, PRESUMED SECONDARY TO THE PATIENT'S CIRRHOSIS. 3. COLONIC DIVERTICULOSIS WITH NO CT FINDINGS OF ACUTE DIVERTICULITIS. 4. 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 5. NO OTHER SIGNIFICANT OR ACUTE FINDING IN THE ABDOMEN OR PELVIS ON CT SCAN WITH IV CONTRAST. KUB X-Ray 05/06/16 02:58 IMPRESSION: GI tube tip in the stomach. Assessment & Plan - Diagnosis (1) Nausea & vomiting Qualifiers: Vomiting Intractability: unspecified Is this a current diagnosis for this admission?: YesPlan: This is possibly secondary to ileus. That being said patient had undergone oysters the night before onset. I think we should continue antibiotic coverage with Levaquin for now. Continue NG tube for gastric decompression. Surgery consult has been placed and they recommend that given patient's multiple comorbid conditions he be transferred to tertiary care facility in the event that he should need surgical intervention. 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 (6) Hypotension Qualifiers: Hypotension type: unspecified hypotension type Qualified Code(s): I95.9 - Hypotension, unspecified Is this a current diagnosis for this admission?: YesPlan: Patient usually takes Midodrine. This medication is on hold secondary to nausea /vomiting/nothing by mouth status. He remains on Levophed at this time. (7) CHF (congestive heart failure) Qualifiers: Congestive heart failure type: diastolic Congestive heart failure chronicity: unspecified congestive heart failure chronicity Qualified Code(s): I50.30 - Unspecified diastolic (congestive) heart failure Is this a current diagnosis for this admission?: YesPlan: Secondary to pulmonary hypertension and diastolic dysfunction. He is not on evidence beta perry secondary to chronic hypotension. Lasix is currently on hold secondary to hypotension and nothing by mouth status. (8) Pulmonary embolus, left Is this a current diagnosis for this admission?: YesPlan: Coumadin is on hold secondary to nothing by mouth status for now. Avoid heparin products secondary to heparin-induced thrombocytopenia. Hold off on Arixtra for now secondary to profound thrombocytopenia. Place SCDs. - Time Time Spent with patient: 35 or more minutes Anticipated discharge: [facility]: when bed available
--- NOTE | 2016-05-06 19:43 | PDOC PROGRESS REPORT ---
Subjective Progress Note for:: 05/06/16 Subjective:: Feels much better. Has been having diarrhea today. No abdominal pain. No vomiting but he does have an NG tube in place. Physical Exam Vital Signs: Temp Pulse Resp BP Pulse Ox 99.1 F 101 H 18 94/52 L 96 05/06/16 03:30 05/06/16 15:00 05/06/16 18:00 05/06/16 17:16 05/06/16 18:00 Intake & Output 05/05/16 05/06/16 05/07/16 06:59 06:59 06:59 Intake Total 1828 Output Total 550 1850 Balance -550 -22 Weight 84.7 kg General appearance: PRESENT: no acute distress GI/Abdominal exam: PRESENT: other - Soft, protuberant (patient notes that the his abdominal protuberance is at baseline, that is-- not the distended), nontender to palpation other than tenderness at the periumbilical region with evidence of the chronically incarcerated umbilical hernia. Patient notes that this incarceration has been persistent for quite some time. There is no erythema. Results Laboratory Results: 05/06/16 06:25 05/06/16 06:25 05/06/16 05/06/16 06:25 06:25 WBC 9.3 RBC 4.08 L Hgb 12.6 L Hct 36.7 L MCV 90 MCH 31.0 MCHC 34.5 RDW 18.2 H Plt Count 63 L Seg Neutrophils % 86.1 H Lymphocytes % 5.3 L Monocytes % 4.8 Eosinophils % 3.6 Basophils % 0.2 Absolute Neutrophils 8.0 Absolute Lymphocytes 0.5 Absolute Monocytes 0.4 Absolute Eosinophils 0.3 Absolute Basophils 0.0 Sodium 138.8 Potassium 4.1 Chloride 108 H Carbon Dioxide 24 Anion Gap 7 BUN 21 H Creatinine 1.01 Est GFR ( Amer) > 60 Est GFR (Non-Af Amer) > 60 Glucose 91 Calcium 7.5 L Total Bilirubin 1.6 H AST 41 ALT 46 Alkaline Phosphatase 144 H Total Protein 5.1 L Albumin 2.1 L Impressions: Chest X-Ray 05/05/16 14:28 IMPRESSION: COPD. Extensive bullous changes in the bases. Small pleural effusions. No focal consolidation. Abdomen/Pelvis CT 05/05/16 20:12 IMPRESSION: 1. MILD TO MODERATE SMALL BOWEL DILATION. I SUSPECT THAT THIS IS PROBABLY DUE TO ILEUS ALTHOUGH CANNOT DEFINITELY RULE OUT POSSIBILITY OF DISTAL MECHANICAL OBSTRUCTION. 2. MILDLY IRREGULAR CONTOUR OF THE LIVER. THE PATIENT HAS A HISTORY OF CIRRHOSIS. THERE IS MILD SPLENOMEGALY AND MODERATE ASCITES, PRESUMED SECONDARY TO THE PATIENT'S CIRRHOSIS. 3. COLONIC DIVERTICULOSIS WITH NO CT FINDINGS OF ACUTE DIVERTICULITIS. 4. 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 5. NO OTHER SIGNIFICANT OR ACUTE FINDING IN THE ABDOMEN OR PELVIS ON CT SCAN WITH IV CONTRAST. KUB X-Ray 05/06/16 02:58 IMPRESSION: GI tube tip in the stomach. Assessment & Plan - Diagnosis (1) Abdominal pain Is this a current diagnosis for this admission?: YesPlan: Patient's gastrointestinal disease appears to be resolving. I do not think he has a mechanical bowel obstruction. His NG output has been minimal and patient is now having bowel movements. Furthermore he notes that his abdominal girth has returned to normal. Patient does have a chronically incarcerated umbilical hernia with fat but no bowel involvement. With his the cirrhosis history I do not recommend the repair: the incarcerated fat is acting as a hernia plug. Will check stool studies. If the patient continues to do well we will DC the NG tube and start a diet tomorrow. Agree with Dr. Nixon's the plan of canceling the transfer to [facility].
[2016-05-07] MEDS ORDERED: VANCOMYCIN HCL INJ 500 MG VIAL ONE (07:02)
[2016-05-07] MEDS: NORMAL SALINE 1000 ML 1,000 ML IV PRN ×2 (07:53→08:04)
[2016-05-07] MEDS: VANCOMYCIN HCL INJ 500 MG VIAL PO SCH ×3 (08:04→17:43)
[2016-05-07 08:39] LABS: ABSOLUTE EOSINOPHILS # (AUTO) 0.3 10^3/uL (0.0-0.6); ABSOLUTE LYMPHOCYTES (AUTO) 0.5 10^3/uL (0.5-4.7); ABSOLUTE MONOCYTES (AUTO) 0.5 10^3/uL (0.1-1.4); ABSOLUTE NEUT (AUTO) 4.3 10^3/uL (1.7-8.2); BASOPHILS % (AUTO) 0.6 % (0-2); EOSINOPHILS % (AUTO) 4.8 % (0-6); HEMATOCRIT 37.8 % (37.9-51.0); HEMOGLOBIN 12.8 g/dL (13.5-17.0); HGB HCT DIFFERENCE 0.6; MEAN CORPUSCULAR HEMOGLOBIN 30.8 pg (27.0-33.4); MEAN CORPUSCULAR HGB CONC 33.8 g/dL (32.0-36.0); MEAN CORPUSCULAR VOLUME 91 fl (80-97); RED BLOOD COUNT 4.15 10^6/uL (4.35-5.55); RED CELL DISTRIBUTION WIDTH 18.2 % (11.5-14.0); SEGMENTED NEUTROPHILS % (AUTO) 76.6 % (42-78); WHITE BLOOD COUNT 5.6 10^3/uL (4.0-10.5)
[2016-05-07 08:48] LABS: ANION GAP 7 (5-19); BLOOD UREA NITROGEN 19 mg/dL (7-20); CALCIUM 7.5 mg/dL (8.4-10.2); CARBON DIOXIDE 23 mmol/L (22-30); CHLORIDE 112 mmol/L (98-107); GLUCOSE 75 mg/dL (75-110); POTASSIUM 3.8 mmol/L (3.6-5.0); SODIUM 141.7 mmol/L (137-145)
[2016-05-07] MEDS: LEVOFLOXACIN 750 MG/D5W RTU 150 ML IV SCH (09:49)
[2016-05-07] MEDS ORDERED: NORMAL SALINE 1000 ML 1,000 ML IV PRN ×2 (10:29→10:51)
[2016-05-07] MEDS ORDERED: TAMSULOSIN HCL 0.4 MG CAP.SR.24H PO ONE (12:00)
[2016-05-07] MEDS ORDERED: (PENDING PHARMACY ID) (Midodrine Hcl [Midodrine Hcl] 10 MG) PO SCH (14:00)
[2016-05-07] MEDS: IPRATROPIUM/ALBUTEROL 0.5-2.5 MG/3 ML AMPUL NEB PRN ×2 (14:10→22:23)
[2016-05-07] MEDS: MIDODRINE HCL 5 MG TABLET PO SCH ×2 (15:12→17:39)
--- NOTE | 2016-05-07 18:00 | PDOC PROGRESS REPORT ---
Subjective Progress Note for:: 05/07/16 Subjective:: Patient has no further abdominal pain, nausea, vomiting. He is starting to have loose stools. He tested C. difficile positive overnight. Physical Exam Vital Signs: Temp Pulse Resp BP Pulse Ox 97.9 F 99 20 97/50 L 97 05/07/16 15:47 05/07/16 15:47 05/07/16 15:47 05/07/16 15:47 05/07/16 15:47 Intake & Output 05/06/16 05/07/16 05/08/16 06:59 06:59 06:59 Intake Total 1878 Output Total 850 1500 Balance -850 -772 Weight 84.7 kg 85.6 kg GENERAL: No acute distress HEENT: Conjunctiva clear, nonicteric, moist mucous membranes, no JVD, midline trachea. NG tube in place RESPIRATORY: Clear to auscultation bilaterally, no wheezes, no rhonchi CARDIAC: Regular rate and rhythm, no murmurs/gallops/rubs ABDOMEN: Soft, distended, nontender, positive bowel sounds, no rebound, no guarding EXTREMETIES: No edema, cyanosis, clubbing NEUROLOGIC: Alert, oriented to person/place/time, CN's grossly intact, no focal deficits SKIN: No rash, wounds PSYCH: Normal mood, normal affect Results Laboratory Results: 05/07/16 08:20 05/07/16 08:20 05/07/16 05/07/16 08:20 08:20 WBC 5.6 RBC 4.15 L Hgb 12.8 L Hct 37.8 L MCV 91 MCH 30.8 MCHC 33.8 RDW 18.2 H Plt Count 62 L Seg Neutrophils % 76.6 Lymphocytes % 9.0 L Monocytes % 9.0 Eosinophils % 4.8 Basophils % 0.6 Absolute Neutrophils 4.3 Absolute Lymphocytes 0.5 Absolute Monocytes 0.5 Absolute Eosinophils 0.3 Absolute Basophils 0.0 Sodium 141.7 Potassium 3.8 Chloride 112 H Carbon Dioxide 23 Anion Gap 7 BUN 19 Creatinine 0.80 Est GFR ( Amer) > 60 Est GFR (Non-Af Amer) > 60 Glucose 75 Calcium 7.5 L Impressions: Chest X-Ray 05/05/16 14:28 IMPRESSION: COPD. Extensive bullous changes in the bases. Small pleural effusions. No focal consolidation. Abdomen/Pelvis CT 05/05/16 20:12 IMPRESSION: 1. MILD TO MODERATE SMALL BOWEL DILATION. I SUSPECT THAT THIS IS PROBABLY DUE TO ILEUS ALTHOUGH CANNOT DEFINITELY RULE OUT POSSIBILITY OF DISTAL MECHANICAL OBSTRUCTION. 2. MILDLY IRREGULAR CONTOUR OF THE LIVER. THE PATIENT HAS A HISTORY OF CIRRHOSIS. THERE IS MILD SPLENOMEGALY AND MODERATE ASCITES, PRESUMED SECONDARY TO THE PATIENT'S CIRRHOSIS. 3. COLONIC DIVERTICULOSIS WITH NO CT FINDINGS OF ACUTE DIVERTICULITIS. 4. 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 5. NO OTHER SIGNIFICANT OR ACUTE FINDING IN THE ABDOMEN OR PELVIS ON CT SCAN WITH IV CONTRAST. KUB X-Ray 05/06/16 02:58 IMPRESSION: GI tube tip in the stomach. Assessment & Plan - Diagnosis (1) Clostridium difficile colitis Is this a current diagnosis for this admission?: YesPlan: Continue oral vancomycin. (2) Ileus Is this a current diagnosis for this admission?: YesPlan: Clinically resolved. Likely secondary to C. difficile colitis. Discontinue NG tube and start clear liquid diet. 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 (6) Hypotension Qualifiers: Hypotension type: unspecified hypotension type Qualified Code(s): I95.9 - Hypotension, unspecified Is this a current diagnosis for this admission?: YesPlan: Resume Midodrine. (7) CHF (congestive heart failure) Qualifiers: Congestive heart failure type: diastolic Congestive heart failure chronicity: unspecified congestive heart failure chronicity Qualified Code(s): I50.30 - Unspecified diastolic (congestive) heart failure Is this a current diagnosis for this admission?: YesPlan: Secondary to pulmonary hypertension and diastolic dysfunction. He is not on evidence beta perry secondary to chronic hypotension. Lasix and spironolactone is currently on hold secondary to hypotension and nothing by mouth status. (8) Pulmonary embolus, left Is this a current diagnosis for this admission?: YesPlan: Resume Coumadin 2 mg daily. Monitor PT/INR. - Time Time Spent with patient: 35 or more minutes
--- NOTE | 2016-05-07 18:38 | PROGRESS NOTE E ---
Progress Note NAME: CHATO BRAXTON : 1955 AGE: 60Y DATE: 05/07/2016 ROOM: 336 SUBJECTIVE: The patient is sitting up and is on the commode at this time, passing gas and having a bowel movement. OBJECTIVE: VITAL SIGNS: Vital signs are stable, blood pressure 117/59, temperature 98, pulse 99, respirations 16, saturation 98%. ABDOMEN: Soft. It is; however, somewhat distended because of the ascites. It is nontender. Bowel sounds are present. ASSESSMENT: RESOLVED SMALL BOWEL OBSTRUCTION. PLAN: The patient is started on clear-liquid diet and will be advanced as tolerated. DICTATING PHYSICIAN: DAVIDA HU M.D. [id number] PHY#: [id number] ID: [id number] JOB#: [id number] ACCT: [id number] cc: >
[2016-05-07 21:35] LABS: APPEARANCE,URINE CLEAR; BILIRUBIN,URINE NEGATIVE (NEGATIVE); GLUCOSE, URINE NEGATIVE (NEGATIVE); KETONES,URINE NEGATIVE (NEGATIVE); LEUKOCYTE ESTERASE,URINE NEGATIVE (NEGATIVE); NITRITE,URINE NEGATIVE (NEGATIVE); PROTEIN,URINE NEGATIVE (NEGATIVE); URINE SPECIFIC GRAVITY 1.016; UROBILINOGEN,URINE NEGATIVE mg/dL (<2.0)
[2016-05-07] MEDS: WARFARIN SODIUM 2 MG TABLET PO SCH (22:11)
[2016-05-08] MEDS: VANCOMYCIN HCL INJ 500 MG VIAL PO SCH ×5 (00:21→23:31)
[2016-05-08 07:30] LABS: ABSOLUTE EOSINOPHILS # (AUTO) 0.4 10^3/uL (0.0-0.6); ABSOLUTE LYMPHOCYTES (AUTO) 0.9 10^3/uL (0.5-4.7); ABSOLUTE MONOCYTES (AUTO) 0.5 10^3/uL (0.1-1.4); ABSOLUTE NEUT (AUTO) 2.9 10^3/uL (1.7-8.2); BASOPHILS % (AUTO) 0.8 % (0-2); EOSINOPHILS % (AUTO) 9.1 % (0-6); HEMATOCRIT 35.5 % (37.9-51.0); HEMOGLOBIN 11.9 g/dL (13.5-17.0); HGB HCT DIFFERENCE 0.2; LYMPHOCYTES % (AUTO) 18.3 % (13-45); MEAN CORPUSCULAR HEMOGLOBIN 30.9 pg (27.0-33.4); MEAN CORPUSCULAR HGB CONC 33.6 g/dL (32.0-36.0); MEAN CORPUSCULAR VOLUME 92 fl (80-97); MONOCYTES % (AUTO) 10.1 % (3-13); RED BLOOD COUNT 3.87 10^6/uL (4.35-5.55); RED CELL DISTRIBUTION WIDTH 18.4 % (11.5-14.0); SEGMENTED NEUTROPHILS % (AUTO) 61.7 % (42-78); WHITE BLOOD COUNT 4.7 10^3/uL (4.0-10.5)
[2016-05-08 07:42] LABS: PROTHROMBIN TIME 16.7 SEC (11.4-15.4)
[2016-05-08 07:49] LABS: BLOOD UREA NITROGEN 14 mg/dL (7-20); CALCIUM 7.7 mg/dL (8.4-10.2); CHLORIDE 109 mmol/L (98-107); CREATININE RESULT 0.95 mg/dL (0.52-1.25); GLUCOSE 72 mg/dL (75-110); POTASSIUM 3.1 mmol/L (3.6-5.0)
[2016-05-08 07:57] LABS: CARBON DIOXIDE 27 mmol/L (22-30); SODIUM 139.2 mmol/L (137-145)
[2016-05-08 07:59] LABS: ANION GAP 3 (5-19)
[2016-05-08] MEDS: MIDODRINE HCL 5 MG TABLET PO SCH ×3 (10:01→17:30)
[2016-05-08] MEDS: TAMSULOSIN HCL 0.4 MG CAP.SR.24H PO SCH (10:02)
[2016-05-08] MEDS: IPRATROPIUM/ALBUTEROL 0.5-2.5 MG/3 ML AMPUL NEB PRN ×2 (10:55→22:25)
[2016-05-08] MEDS ORDERED: SPIRONOLACTONE 25 MG TABLET PO ONE (13:30)
[2016-05-08] MEDS ORDERED: POTASSIUM CHLORIDE 10 MEQ TABLET.SA PO ONE (13:30)
--- NOTE | 2016-05-08 18:00 | PDOC PROGRESS REPORT ---
Subjective Progress Note for:: 05/08/16 Subjective:: Patient is feeling much better today. She is sitting on the edge of the bed reading the newspaper at the time of my visit. He would like to start taking a regular diet. Patient denies fever, chills, headache, new focal weakness, chest pain, shortness of breath, abdominal pain, nausea, vomiting, diarrhea, constipation. Physical Exam Vital Signs: Temp Pulse Resp BP Pulse Ox 97.5 F 86 20 95/48 L 97 05/08/16 11:32 05/08/16 14:00 05/08/16 11:32 05/08/16 11:32 05/08/16 11:32 Intake & Output 05/07/16 05/08/16 05/09/16 06:59 06:59 06:59 Intake Total 1878 2176 940 Output Total 2650 350 125 Balance -772 1826 815 Weight 85.6 kg 89.2 kg GENERAL: No acute distress HEENT: Conjunctiva clear, nonicteric, moist mucous membranes, no JVD, midline trachea. RESPIRATORY: Clear to auscultation bilaterally, no wheezes, no rhonchi CARDIAC: Regular rate and rhythm, no murmurs/gallops/rubs ABDOMEN: Soft, distended, nontender, positive bowel sounds, no rebound, no guarding EXTREMETIES: No edema, cyanosis, clubbing NEUROLOGIC: Alert, oriented to person/place/time, CN's grossly intact, no focal deficits SKIN: No rash, wounds PSYCH: Normal mood, normal affect Results Laboratory Results: 05/08/16 07:20 05/08/16 07:20 05/07/16 05/08/16 05/08/16 19:58 02:33 07:20 WBC 4.7 RBC 3.87 L Hgb 11.9 L Hct 35.5 L MCV 92 MCH 30.9 MCHC 33.6 RDW 18.4 H Plt Count 70 L Seg Neutrophils % 61.7 Lymphocytes % 18.3 Monocytes % 10.1 Eosinophils % 9.1 H Basophils % 0.8 Absolute Neutrophils 2.9 Absolute Lymphocytes 0.9 Absolute Monocytes 0.5 Absolute Eosinophils 0.4 Absolute Basophils 0.0 Sodium Potassium Chloride Carbon Dioxide Anion Gap BUN Creatinine Est GFR ( Amer) Est GFR (Non-Af Amer) Glucose Calcium Urine Color YELLOW Urine Appearance CLEAR Urine pH 5.0 Ur Specific [place] 1.016 Urine Protein NEGATIVE Urine Glucose (UA) NEGATIVE Urine Ketones NEGATIVE Urine Blood NEGATIVE Urine Nitrite NEGATIVE Ur Leukocyte Esterase NEGATIVE Urine WBC (Auto) 2 Urine RBC (Auto) 1 Stool Occult Blood POSITIVE 05/08/16 07:20 WBC RBC Hgb Hct MCV MCH MCHC RDW Plt Count Seg Neutrophils % Lymphocytes % Monocytes % Eosinophils % Basophils % Absolute Neutrophils Absolute Lymphocytes Absolute Monocytes Absolute Eosinophils Absolute Basophils Sodium 139.2 Potassium 3.1 L Chloride 109 H Carbon Dioxide 27 Anion Gap 3 L BUN 14 Creatinine 0.95 Est GFR ( Amer) > 60 Est GFR (Non-Af Amer) > 60 Glucose 72 L Calcium 7.7 L Urine Color Urine Appearance Urine pH Ur Specific [place] Urine Protein Urine Glucose (UA) Urine Ketones Urine Blood Urine Nitrite Ur Leukocyte Esterase Urine WBC (Auto) Urine RBC (Auto) Stool Occult Blood Impressions: Chest X-Ray 05/05/16 14:28 IMPRESSION: COPD. Extensive bullous changes in the bases. Small pleural effusions. No focal consolidation. Abdomen/Pelvis CT 05/05/16 20:12 IMPRESSION: 1. MILD TO MODERATE SMALL BOWEL DILATION. I SUSPECT THAT THIS IS PROBABLY DUE TO ILEUS ALTHOUGH CANNOT DEFINITELY RULE OUT POSSIBILITY OF DISTAL MECHANICAL OBSTRUCTION. 2. MILDLY IRREGULAR CONTOUR OF THE LIVER. THE PATIENT HAS A HISTORY OF CIRRHOSIS. THERE IS MILD SPLENOMEGALY AND MODERATE ASCITES, PRESUMED SECONDARY TO THE PATIENT'S CIRRHOSIS. 3. COLONIC DIVERTICULOSIS WITH NO CT FINDINGS OF ACUTE DIVERTICULITIS. 4. 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 5. NO OTHER SIGNIFICANT OR ACUTE FINDING IN THE ABDOMEN OR PELVIS ON CT SCAN WITH IV CONTRAST. KUB X-Ray 05/06/16 02:58 IMPRESSION: GI tube tip in the stomach. Assessment & Plan - Diagnosis (1) Clostridium difficile colitis Is this a current diagnosis for this admission?: YesPlan: Continue oral vancomycin. (2) Ileus Is this a current diagnosis for this admission?: YesPlan: Clinically resolved. Likely secondary to C. difficile colitis. Advance to regular diet. (3) Cirrhosis of liver with ascites Qualifiers: Hepatic cirrhosis type: unspecified hepatic cirrhosis Qualified Code (s): K74.60 - Unspecified cirrhosis of liver Is this a current diagnosis for this admission?: YesPlan: Resume Bumex, spironolactone. 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 (6) Hypotension Qualifiers: Hypotension type: unspecified hypotension type Qualified Code(s): I95.9 - Hypotension, unspecified Is this a current diagnosis for this admission?: YesPlan: Chronic. Continue Midodrine. (7) CHF (congestive heart failure) Qualifiers: Congestive heart failure type: diastolic Congestive heart failure chronicity: unspecified congestive heart failure chronicity Qualified Code(s): I50.30 - Unspecified diastolic (congestive) heart failure Is this a current diagnosis for this admission?: YesPlan: Secondary to pulmonary hypertension and diastolic dysfunction. He is not on evidence based beta perry secondary to chronic hypotension. Resume Bumex and spironolactone. (8) Pulmonary embolus, left Is this a current diagnosis for this admission?: YesPlan: Continue Coumadin 2 mg daily. Monitor PT/INR. - Time Time Spent with patient: 35 or more minutes
[2016-05-08] MEDS: POTASSIUM CHLORIDE 10 MEQ TABLET.SA PO SCH (21:25)
[2016-05-08] MEDS: GABAPENTIN 100 MG CAPSULE PO SCH (21:26)
[2016-05-08] MEDS: WARFARIN SODIUM 2 MG TABLET PO SCH (21:47)
--- NOTE | 2016-05-08 22:23 | PROGRESS NOTE E ---
Progress Note NAME: CHATO BRAXTON : 1955 AGE: 60Y DATE: 05/08/2016 ROOM: 336 SUBJECTIVE: The patient is without complaints at this time, is tolerating his clear-liquid diet quite well and wants regular food. OBJECTIVE: VITAL SIGNS: Blood pressure *------*, temperature 97.9, pulse at 98, respirations 14, saturation is 98% on room air. ABDOMEN: The patient's abdomen is distended secondary to ascites, but he has no tenderness or guarding. The umbilical hernia site looks about the same. ASSESSMENT: RESOLVED SMALL BOWEL OBSTRUCTION. PLAN: We will advance the patient's diet, and the patient will be cleared for discharge in the a.m. from a surgical standpoint. DICTATING PHYSICIAN: DAVIDA HU M.D. [id number] PHY#: [id number] ID: [id number] JOB#: [id number] ACCT: [id number] cc:DAVIDA HU M.D. >
[2016-05-09] MEDS: VANCOMYCIN HCL INJ 500 MG VIAL PO SCH ×2 (05:13→12:09)
[2016-05-09] MEDS ORDERED: BUMETANIDE 1 MG TABLET ONE (05:30)
[2016-05-09] MEDS ORDERED: BUMETANIDE 1 MG TABLET PO SCH ×3 (06:00→12:00)
[2016-05-09 06:42] LABS: PROTHROMBIN TIME 17.7 SEC (11.4-15.4)
[2016-05-09 06:45] LABS: ABSOLUTE EOSINOPHILS # (AUTO) 0.4 10^3/uL (0.0-0.6); ABSOLUTE LYMPHOCYTES (AUTO) 0.9 10^3/uL (0.5-4.7); ABSOLUTE MONOCYTES (AUTO) 0.5 10^3/uL (0.1-1.4); ABSOLUTE NEUT (AUTO) 3.7 10^3/uL (1.7-8.2); BASOPHILS % (AUTO) 0.6 % (0-2); EOSINOPHILS % (AUTO) 7.3 % (0-6); HEMATOCRIT 38.1 % (37.9-51.0); HEMOGLOBIN 12.3 g/dL (13.5-17.0); HGB HCT DIFFERENCE -1.2; LYMPHOCYTES % (AUTO) 15.5 % (13-45); MEAN CORPUSCULAR HEMOGLOBIN 30.1 pg (27.0-33.4); MEAN CORPUSCULAR HGB CONC 32.2 g/dL (32.0-36.0); MEAN CORPUSCULAR VOLUME 93 fl (80-97); MONOCYTES % (AUTO) 9.4 % (3-13); RED BLOOD COUNT 4.08 10^6/uL (4.35-5.55); SEGMENTED NEUTROPHILS % (AUTO) 67.2 % (42-78); WHITE BLOOD COUNT 5.5 10^3/uL (4.0-10.5)
[2016-05-09 06:59] LABS: BLOOD UREA NITROGEN 13 mg/dL (7-20); CALCIUM 7.4 mg/dL (8.4-10.2); CARBON DIOXIDE 28 mmol/L (22-30); CHLORIDE 107 mmol/L (98-107); CREATININE RESULT 0.99 mg/dL (0.52-1.25); GLUCOSE 87 mg/dL (75-110); POTASSIUM 3.5 mmol/L (3.6-5.0)
[2016-05-09 07:26] LABS: ANION GAP 4 (5-19); SODIUM 138.8 mmol/L (137-145)
[2016-05-09] MEDS: IPRATROPIUM/ALBUTEROL 0.5-2.5 MG/3 ML AMPUL NEB PRN (08:09)
[2016-05-09] MEDS: POTASSIUM CHLORIDE 10 MEQ TABLET.SA PO SCH (09:54)
[2016-05-09] MEDS: MIDODRINE HCL 5 MG TABLET PO SCH (09:54)
[2016-05-09] MEDS: TAMSULOSIN HCL 0.4 MG CAP.SR.24H PO SCH (09:55)
[2016-05-09] MEDS: GABAPENTIN 100 MG CAPSULE PO SCH (09:55)
[2016-05-09] MEDS ORDERED: SPIRONOLACTONE 25 MG TABLET PO SCH (10:00)
[2016-05-09 12:29] VITALS: BP 103/49
--- NOTE | 2016-05-09 18:18 | PDOC DISCHARGE SUMMARY ---
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) Is this a current diagnosis for this admission?: Yes (6) Hypotension Is this a current diagnosis for this admission?: Yes (7) CHF (congestive heart failure) Is this a current diagnosis for this admission?: Yes (8) Pulmonary embolus, left Is this a current diagnosis for this admission?: Yes - Additional Information Resuscitation Status: Full Code Discharge Diet: Other (Comments) - npo x ice chips; ng in place Discharge Activity: Bedrest Home Medications: Potassium Chloride 20 meq PO BID 01/13/16 Tamsulosin HCl 0.4 mg PO DAILY 01/13/16 Warfarin Sodium 2 mg PO ASDIR PRN 01/13/16 Albuterol Sulfate [Ventolin 0.083% Neb 2.5 mg/3 mL Ampul] 2.5 mg NEB Q6HP PRN # 1 pkg 01/15/16 Albuterol Sulfate [Proair HFA Inhalation Aerosol 8.5 gm MDI] 2 puff IH Q4HP PRN #1 hfa.aer.ad 03/06/16 Fluticasone Propionate [Flonase Nasal [place] 50 Mcg/[place] 16 gm] 2 spray NASL DAILY spray.pump 03/06/16 Ondansetron [Zofran Odt 4 mg Tablet] 4 mg PO Q6HP PRN tab.rapdis 03/06/16 Bumetanide [Bumex 1 mg Tablet] 1 mg PO BID #60 tablet 04/15/16 Midodrine HCl 10 mg PO TID #90 tablet 04/15/16 Spironolactone [Aldactone 25 mg Tablet] 25 mg PO DAILY #30 tablet 04/15/16 Gabapentin [Neurontin 100 mg Capsule] 100 mg PO Q12 #60 capsule 05/09/16 Vancomycin HCl 125 mg PO Q6H #56 capsule 05/09/16 History of Present Illness Patient complains of: Nausea and vomiting History of Present Illness: CHATO BRAXTON SR is a 60 year old male with past medical history of cirrhosis and COPD secondary to alpha-1 antitrypsin deficiency that presented to the emergency department with nausea vomiting and abdominal pain. Patient was admitted with initial diagnosis of ileus. Hospital Course Hospital Course: Patient was admitted for ileus and treated initially with nothing by mouth status, NG tube for gastric decompression, IV fluids, antiemetics. Patient was ultimately found to have C. difficile colitis and was started on treatment. Ileus resolved spontaneously. NG tube was removed and patient was started on clear liquid diet. Diet was advanced to regular consistency diet patient tolerated this well. He was sent home in stable condition. He will continue another 14 days of oral vancomycin. With regard to alpha-1 antitrypsin deficiency, as mentioned above he has cirrhosis and advanced COPD. He is followed by pulmonary medicine specialist in [facility] and also followed by the transplant clinic at [facility]. These issues were stable during this hospitalization. Patient has chronic hypotension. His blood pressure is low but stable on Midodrine. Patient has relatively recently diagnosed left pulmonary embolism. He is on Coumadin 2 mg daily. This was held initially secondary to forceful vomiting and history of cirrhosis and concern of potential upper GI bleed. Patient's Coumadin has now been restarted and will need follow-up PT/INR a primary care provider. Physical Exam Vital Signs: Temp Pulse Resp BP Pulse Ox 97.8 F 124 H 22 H 103/49 L 95 05/09/16 12:16 05/09/16 12:16 05/09/16 12:16 05/09/16 12:16 05/09/16 12:16 Intake & Output 05/08/16 05/09/16 05/10/16 06:59 06:59 06:59 Intake Total 2176 1848 Output Total 350 125 Balance 1826 1723 Weight 89.2 kg 89.131 kg GENERAL: No acute distress HEENT: Conjunctiva clear, nonicteric, moist mucous membranes, no JVD, midline trachea RESPIRATORY: Clear to auscultation bilaterally, no wheezes, no rhonchi CARDIAC: Regular rate and rhythm, no murmurs/gallops/rubs ABDOMEN: Soft, distended, nontender, positive bowel sounds, no rebound, no guarding EXTREMETIES: Trace bilateral lower extremity edema NEUROLOGIC: Alert, oriented to person/place/time, CN's grossly intact, no focal deficits SKIN: No rash, wounds PSYCH: Normal mood, normal affect Results Laboratory Results: 05/09/16 06:22 05/09/16 06:22 05/09/16 05/09/16 06:22 06:22 WBC 5.5 RBC 4.08 L Hgb 12.3 L Hct 38.1 MCV 93 MCH 30.1 MCHC 32.2 RDW 18.0 H Plt Count 66 L Seg Neutrophils % 67.2 Lymphocytes % 15.5 Monocytes % 9.4 Eosinophils % 7.3 H Basophils % 0.6 Absolute Neutrophils 3.7 Absolute Lymphocytes 0.9 Absolute Monocytes 0.5 Absolute Eosinophils 0.4 Absolute Basophils 0.0 Sodium 138.8 Potassium 3.5 L Chloride 107 Carbon Dioxide 28 Anion Gap 4 L BUN 13 Creatinine 0.99 Est GFR ( Amer) > 60 Est GFR (Non-Af Amer) > 60 Glucose 87 Calcium 7.4 L 05/07/16 01:37 C. difficile Tox (PCR) POSITIVE Impressions: Chest X-Ray 05/05/16 14:28 IMPRESSION: COPD. Extensive bullous changes in the bases. Small pleural effusions. No focal consolidation. Abdomen/Pelvis CT 05/05/16 20:12 IMPRESSION: 1. MILD TO MODERATE SMALL BOWEL DILATION. I SUSPECT THAT THIS IS PROBABLY DUE TO ILEUS ALTHOUGH CANNOT DEFINITELY RULE OUT POSSIBILITY OF DISTAL MECHANICAL OBSTRUCTION. 2. MILDLY IRREGULAR CONTOUR OF THE LIVER. THE PATIENT HAS A HISTORY OF CIRRHOSIS. THERE IS MILD SPLENOMEGALY AND MODERATE ASCITES, PRESUMED SECONDARY TO THE PATIENT'S CIRRHOSIS. 3. COLONIC DIVERTICULOSIS WITH NO CT FINDINGS OF ACUTE DIVERTICULITIS. 4. 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 5. NO OTHER SIGNIFICANT OR ACUTE FINDING IN THE ABDOMEN OR PELVIS ON CT SCAN WITH IV CONTRAST. KUB X-Ray 05/06/16 02:58 IMPRESSION: GI tube tip in the stomach. Qualifiers PATEINT BEING DISCHARGED WITH ANY OF THE FOLLOWING DIAGNOSIS?: No Plan Discharge Plan: Follow-up with primary care provider Sadie Magallon NP. Follow-up with pulmonary medicine Dr. Mendel Worrell- [facility]. Time Spent: Less than 30 Minutes
== END 2016-05-09 13:04 | disposition home or self-care (01) | DRG 371 ==
LOC: ER 14:18 → EH 22:56 → UNDOADMIN 22:56 → EH 05-06 00:24 → ICU 05-06 03:04 → 3S 05-07 03:48
PROVIDERS: ADMIT Family Medicine; ATTEND Family Medicine
PROC: 0W9G3ZX Drainage of Peritoneal Cavity, Percutaneous Approach, Diagnostic (ICD-10-PCS; principal; 2016-05-05)
DX: A04.7 Enterocolitis due to Clostridium difficile (principal); J96.21 Acute and chronic respiratory failure with hypoxia; K42.0 Umbilical hernia with obstruction, without gangrene; R18.8 Other ascites; I50.22 Chronic systolic (congestive) heart failure; E88.01 Alpha-1-antitrypsin deficiency; K74.69 Other cirrhosis of liver; I95.9 Hypotension, unspecified; J44.9 Chronic obstructive pulmonary disease, unspecified; E66.9 Obesity, unspecified; I25.10 Atherosclerotic heart disease of native coronary artery without angina pectoris; I11.0 Hypertensive heart disease with heart failure; E11.9 Type 2 diabetes mellitus without complications; K21.9 Gastro-esophageal reflux disease without esophagitis; D75.82 Heparin induced thrombocytopenia (HIT); I25.2 Old myocardial infarction; I27.2 Other secondary pulmonary hypertension; Z86.711 Personal history of pulmonary embolism; Z99.81 Dependence on supplemental oxygen; Z79.51 Long term (current) use of inhaled steroids; Z79.52 Long term (current) use of systemic steroids; Z82.49 Family history of ischemic heart disease and other diseases of the circulatory system; Z79.01 Long term (current) use of anticoagulants; Z79.899 Other long term (current) drug therapy; Z88.6 Allergy status to analgesic agent; Z88.0 Allergy status to penicillin; Z88.8 Allergy status to other drugs, medicaments and biological substances
CPT/HCPCS: 36415; 71020; 74000; 74177; 80048; 80053; 81001; 82272; 82550; 82553; 82962; 83605; 83690; 83735; 84484; 85025; 85610; 85730; 87040; 87070; 87075; 87205; 87493; 89050; 93005; 93010; J0696; J1956; J2405; J2550; J3370; J3490; J7030; J7620; S0119

== ENCOUNTER 2016-06-16 14:10 | Observation (INO) | payer OTHER, MEDICARE ==
--- NOTE | 2016-06-16 14:29 | ER Document Report ---
ED Medical Screen (RME) - General Stated Complaint: SHORTNESS OF BREATH Notes: 60 yo male c/o shortness of breath since yesterday. home O2 @ 2L. Sats at home today 88%. hx/o COPD, CHF, DM. Chest feels tight, but no pain. Hypotensive 79/46 TRAVEL OUTSIDE OF THE [place] IN LAST 30 DAYS: No - Related Data Allergies/Adverse Reactions: Heparin Analogues [Heparin Agents] Allergy (Severe, Verified 06/16/16 14:25) Thrombocytopenia heparinoids [Heparinoids] Allergy (Severe, Verified 06/16/16 14:25) Thrombocytopenia codeine [Codeine] Allergy (Unknown, Verified 06/16/16 14:25) GI upset Penicillins Allergy (Unknown, Verified 06/16/16 14:25) Swelling doxycycline Allergy (Verified 06/16/16 14:25) Past Medical History - Social History Family history: CAD - Past Medical History Cardiac Medical History: Reports: Hx Congestive Heart Failure - Left ventricular diastolic dysfunction, Hx Coronary Artery Disease, Hx Heart Attack, Hx Pulmonary Embolism Denies: Hx Hypercholesterolemia, Hx Hypertension Pulmonary Medical History: Reports: Hx Asthma, Hx Bronchitis, 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 Denies: Hx Hyperthyroidism, Hx Hypothyroidism Renal/ Medical History: Denies: Hx Peritoneal Dialysis GI Medical History: Reports: Hx Cirrhosis - [place] secondary to alpha-1 antitrypsin deficiency., Hx Gastroesophageal Reflux Disease. Denies: Hx Hepatitis Musculoskeltal Medical History: Denies Hx Arthritis Psychiatric Medical History: Denies: Hx Depression Infectious Medical History: Denies: Hx Hepatitis Past Surgical History: Reports: Other - Left chest tube insertion. - Immunizations Hx Diphtheria, Pertussis, Tetanus Vaccination: Yes
[2016-06-16 14:53] LABS: ABSOLUTE BASOPHILS # (AUTO) 0.1 10^3/uL (0.0-0.2); ABSOLUTE EOSINOPHILS # (AUTO) 0.2 10^3/uL (0.0-0.6); ABSOLUTE LYMPHOCYTES (AUTO) 0.9 10^3/uL (0.5-4.7); ABSOLUTE MONOCYTES (AUTO) 0.8 10^3/uL (0.1-1.4); BASOPHILS % (AUTO) 0.7 % (0-2); EOSINOPHILS % (AUTO) 3.2 % (0-6); HEMATOCRIT 41.7 % (37.9-51.0); HEMOGLOBIN 14.2 g/dL (13.5-17.0); HGB HCT DIFFERENCE 0.9; LYMPHOCYTES % (AUTO) 12.8 % (13-45); MEAN CORPUSCULAR HEMOGLOBIN 31.1 pg (27.0-33.4); MEAN CORPUSCULAR VOLUME 92 fl (80-97); MONOCYTES % (AUTO) 11.2 % (3-13); RED BLOOD COUNT 4.56 10^6/uL (4.35-5.55); RED CELL DISTRIBUTION WIDTH 18.4 % (11.5-14.0); SEGMENTED NEUTROPHILS % (AUTO) 72.1 % (42-78)
[2016-06-16 15:13] LABS: ALANINE AMINOTRANSFERASE 37 U/L (21-72); ALBUMIN 2.5 g/dL (3.5-5.0); ALKALINE PHOSPHATASE 158 U/L (38-126); ANION GAP 7 (5-19); ASPARTATE AMINO TRANSFERASE 52 U/L (17-59); BILIRUBIN,TOTAL 1.1 mg/dL (0.2-1.3); BLOOD UREA NITROGEN 16 mg/dL (7-20); CALCIUM 8.5 mg/dL (8.4-10.2); CARBON DIOXIDE 28 mmol/L (22-30); CHLORIDE 101 mmol/L (98-107); CREATINE KINASE 85 U/L (55-170); CREATININE RESULT 1.31 mg/dL (0.52-1.25); GLUCOSE 142 mg/dL (75-110); POTASSIUM 3.9 mmol/L (3.6-5.0); SODIUM 135.6 mmol/L (137-145); TOTAL PROTEIN 6.6 g/dL (6.3-8.2)
[2016-06-16 15:25] LABS: CREATINE KINASE MB 1.02 ng/mL (<4.55)
[2016-06-16 15:26] LABS: TROPONIN I < 0.012 ng/mL
[2016-06-16] MEDS ORDERED: IPRATROPIUM/ALBUTEROL 0.5-2.5 MG/3 ML AMPUL NEB ONE (15:38)
[2016-06-16] MEDS ORDERED: METHYLPREDNISOLONE INJ 125 MG/2 ML SDV IV ONE (15:38)
--- NOTE | 2016-06-16 15:51 | ER Document Report ---
ED Respiratory Problem - General Chief Complaint: Shortness Of Breath Stated Complaint: SHORTNESS OF BREATH Notes: Patient is a 60-year-old male who presents emergency Department complaining of shortness of breath since yesterday. Patient states that he is had difficulty breathing since yesterday with a cough that has been nonproductive and he feels like he can't catch his breath. Admits to dyspnea on exertion. Normally wears 2 L O2 at home. Denies any nausea, vomiting, diarrhea, constipation, dark tarry stools. Patient does admit to bright red blood per rectum but this is consistent he says with his hemorrhoids. Patient does admit that he is on a blood thinner. Patient seeking warfarin for a history of PE. 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 IN LAST 30 DAYS: No - Related Data Allergies/Adverse Reactions: Heparin Analogues [Heparin Agents] Allergy (Severe, Verified 06/16/16 14:25) Thrombocytopenia heparinoids [Heparinoids] Allergy (Severe, Verified 06/16/16 14:25) Thrombocytopenia codeine [Codeine] Allergy (Unknown, Verified 06/16/16 14:25) GI upset Penicillins Allergy (Unknown, Verified 06/16/16 14:25) Swelling doxycycline Allergy (Verified 06/16/16 14:25) Past Medical History - Social History Smoking Status: Former Smoker Chew tobacco use (# tins/day): No Frequency of alcohol use: None Drug Abuse: None Family History: CAD, Hypertension, Other - CHF Patient has suicidal ideation: No Patient has homicidal ideation: No - Past Medical History Cardiac Medical History: Reports: Hx Congestive Heart Failure - Left ventricular diastolic dysfunction, Hx Coronary Artery Disease, Hx Heart Attack, Hx Pulmonary Embolism Denies: Hx Hypercholesterolemia, Hx Hypertension Pulmonary Medical History: Reports: Hx Asthma, Hx Bronchitis, 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 Denies: Hx Hyperthyroidism, Hx Hypothyroidism Renal/ Medical History: Denies: Hx Peritoneal Dialysis GI Medical History: Reports: Hx Cirrhosis - [place] secondary to alpha-1 antitrypsin deficiency., Hx Gastroesophageal Reflux Disease. Denies: Hx Hepatitis Musculoskeltal Medical History: Denies Hx Arthritis Psychiatric Medical History: Denies: Hx Depression Infectious Medical History: Denies: Hx Hepatitis Past Surgical History: Reports: Other - Left chest tube insertion. - Immunizations Hx Diphtheria, Pertussis, Tetanus Vaccination: Yes Hx Pneumococcal Vaccination: 04/05/14 Review of Systems - Review of Systems Constitutional: Weight loss EENT: No symptoms reported Cardiovascular: See HPI Respiratory: See HPI Gastrointestinal: Other - abdominal hernia Genitourinary: No symptoms reported Male Genitourinary: No symptoms reported Physical Exam - Vital signs Vitals: BP 102/66 06/16/16 14:34 Course - Re-evaluation Re-evalutation: 06/16/16 17:18 Patient is a 60-year-old male presents emergency Department complaining of shortness of breath since yesterday. Patient has no all 41 antitrypsin deficiency which has led for him to have severe COPD and cirrhosis. At this time patient suffering from an acute on chronic COPD exacerbation. He has received IV methylprednisone DuoNeb and albuterol emergency department. Previously he was not moving air very well at all consistent with emphysema eating treatments he is now moving air better and has wheezes bilaterally. Will continue to treat with nebulized Atrovent. Case is discussed with hospitalist Dr. Nixon who agreed to admit the patient to [facility]. Discussed plan with patient and family and they're all agreeable. Per [facility] protocol and guidelines, this case was discussed with supervising physician Dr. Kaitlynn Parrish prior to admission - Vital Signs Vital signs: Temp Pulse Resp BP Pulse Ox 102/66 06/16/16 14:34 - Laboratory Result Diagrams: 06/16/16 14:35 06/16/16 14:35 Laboratory results interpreted by me: 06/16/16 06/16/16 06/16/16 14:35 14:35 15:15 RDW 18.4 H Plt Count 131 L Lymphocytes % 12.8 L PT 18.4 H Sodium 135.6 L Creatinine 1.31 H Est GFR (Non-Af Amer) 56 L Glucose 142 H Alkaline Phosphatase 158 H Ammonia Albumin 2.5 L 06/16/16 16:44 RDW Plt Count Lymphocytes % PT Sodium Creatinine Est GFR (Non-Af Amer) Glucose Alkaline Phosphatase Ammonia < 8.7 L Albumin - Diagnostic Test Radiology reviewed: Image reviewed, Reports reviewed - EKG Interpretation by Me EKG shows normal: Sinus rhythm Rate: Normal Rhythm: NSR When compared to previous EKG there are: No significant change - Consults Hussain Time consulted: 17:15 Reason for consultation: 06/16/16 17:22 Hospital admission Discharge - Discharge Clinical Impression: COPD exacerbation Condition: Good Disposition: ADMITTED INPATIENT Admitting Provider: Hospitalist - Dr. Nixon Unit Admitted: [facility]
[2016-06-16 15:52] LABS: VENOUS BLOOD BASE EXCESS 2.1 mmol/L; VENOUS BLOOD HCO3 28.3 mmol/L (20-32); VENOUS BLOOD PCO2 49.9 mmHg (35-63); VENOUS BLOOD PH 7.37 (7.30-7.42)
[2016-06-16] MEDS ORDERED: ALBUTEROL SULFATE 0.083% NEB 2.5 MG/3 ML AMPUL NEB SCH (15:53)
[2016-06-16 16:02] LABS: PROTHROMBIN TIME 18.4 SEC (11.4-15.4)
[2016-06-16 16:03] LABS: PARTIAL THROMBOPLASTIN TIME 32.5 SEC (23.5-35.8)
[2016-06-16] MEDS ORDERED: IPRATROPIUM BROMIDE 0.02% NEB 0.5 MG/2.5 ML AMPUL NEB PRN (17:07)
[2016-06-16] MEDS ORDERED: DEXTROSE 50%-WATER 25 GM/50 ML DISP.SYRIN IV PRN ×2 (18:09)
[2016-06-16] MEDS ORDERED: GLUCAGON,HUMAN RECOMB 1 MG INJ IM PRN (18:09)
[2016-06-16] MEDS ORDERED: ALBUTEROL SULFATE 0.083% NEB 2.5 MG/3 ML AMPUL NEB PRN (18:09)
[2016-06-16] MEDS ORDERED: DEXTROSE 40% GEL 15 GM TUBE PO PRN ×2 (18:09)
[2016-06-16] MEDS ORDERED: INSULIN LISPRO 100 UNIT/ML 3 ML VIAL SUBCUT PRN (18:09)
[2016-06-16] MEDS ORDERED: ONDANSETRON HCL INJ/PF 4 MG/2 ML SDV IV PRN (18:11)
--- NOTE | 2016-06-16 18:47 | PDOC H&P ---
History of Present Illness Admission Date/PCP: 06/16/16 17:46 ALFA GRANGER NP Patient complains of: Shortness of breath History of Present Illness: CHATO BRAXTON SR is a 60 year old male with past medical history of alpha-1 antitrypsin deficiency and resulting end-stage COPD and advanced cirrhosis of liver presents with 2 days history of increasing shortness of breath. Patient is followed by hepatology at [facility] and has been recently told that he would not be a good candidate for transplant. He is also followed by a pulmonary medicine specialist in [facility]. He is on continuous home oxygen at baseline. Medications listed below have not been verified at the time of this documentation. Past Medical History Cardiac Medical History: Reports: Congestive Heart Failure - Left ventricular diastolic dysfunction, Coronary Artery Disease, Myocardial Infarction, Pulmonary Embolism Denies: Hyperlipidema, Hypertension Pulmonary Medical History: Reports: Asthma, Bronchitis, Chronic Obstructive Pulmonary Disease (COPD) - secondary to alpha-1 antitrypsin deficiency, Pneumonia Denies: Tuberculosis Neurological Medical History: Denies: Seizures Endocrine Medical History: Reports: Diabetes Mellitus Type 2 Denies: Hyperthyroidism, Hypothyroidism GI Medical History: Reports: Cirrhosis - [place] secondary to alpha-1 antitrypsin deficiency., Gastroesophageal Reflux Disease Denies: Hepatitis Musculoskeltal Medical History: Denies: Arthritis Psychiatric Medical History: Denies: Depression Hematology: Denies: Anemia Past Surgical History Past Surgical History: Reports: Other - Left chest tube insertion. Social History Information Source: Patient Lives with: Spouse/Significant other Smoking Status: Former Smoker Frequency of Alcohol Use: None Hx Recreational Drug Use: No Drugs: None Hx Prescription Drug Abuse: No - Advance Directive Resuscitation Status: Full Code Surrogate healthcare decision maker:: -Loida Braxton Family History Family History: CAD, Hypertension, Other - CHF Parental Family History Reviewed: Yes Children Family History Reviewed: Yes Sibling(s) Family History Reviewed.: Yes Medication/Allergy Allergies/Adverse Reactions: Heparin Analogues [Heparin Agents] Allergy (Severe, Verified 06/16/16 14:25) Thrombocytopenia heparinoids [Heparinoids] Allergy (Severe, Verified 06/16/16 14:25) Thrombocytopenia codeine [Codeine] Allergy (Unknown, Verified 06/16/16 14:25) GI upset Penicillins Allergy (Unknown, Verified 06/16/16 14:25) Swelling doxycycline Allergy (Verified 06/16/16 14:25) Review of Systems Constitutional: ABSENT: chills, fever(s), headache(s), weight gain, weight loss Eyes: ABSENT: visual disturbances Ears: ABSENT: hearing changes Cardiovascular: PRESENT: dyspnea on exertion. ABSENT: chest pain, edema, orthropnea, palpitations Respiratory: PRESENT: cough, dyspnea, sputum - Yellow. ABSENT: hemoptysis Gastrointestinal: ABSENT: abdominal pain, constipation, diarrhea, hematemesis, hematochezia, nausea, vomiting Genitourinary: ABSENT: dysuria, hematuria Musculoskeletal: ABSENT: joint swelling Integumentary: ABSENT: rash, wounds Neurological: PRESENT: dizziness - Orthostasis. ABSENT: abnormal gait, abnormal speech, confusion, focal weakness, syncope Psychiatric: ABSENT: anxiety, depression, homidical ideation, suicidal ideation Endocrine: ABSENT: cold intolerance, heat intolerance, polydipsia, polyuria Hematologic/Lymphatic: ABSENT: easy bleeding, easy bruising Physical Exam Vital Signs: Temp Pulse Resp BP Pulse Ox 102/66 06/16/16 14:34 PHYSICAL EXAM: GENERAL: Appears well, no acute distress HEENT: Normocephalic, no scleral icterus, conjunctiva clear, EOEM intact, PERRLA , moist mucous membranes NECK: trachea midline, no thyromegally RESPIRATORY: Mild wheezes, diminished air excursion CARDIAC: Regular rate and rhythm, no murmur/paola/rub ABDOMEN: Soft, no distension, no tenderness, no guarding, normal bowel sounds, negative Pacheco sign RECTAL: deferred : deferred EXTREMITIES: Trace bilateral lower extremity edema MUSCULOSKELETAL: No joint swelling or deformity VASCULAR: normal peripheral pulses NEUROLOGIC: Alert, oriented to person/place/time, normal speech, cranial nerves grossly intact, 5/5 strength in all extremities, tactile sensation intact in all extremities SKIN: No rash, no wounds, no worrisome skin lesions PSYCHIATRIC: Normal mood, normal affect Results Laboratory Results: Labs- All tests 24 hr 06/16/16 06/16/16 06/16/16 14:35 14:35 14:35 WBC 7.0 RBC 4.56 Hgb 14.2 Hct 41.7 MCV 92 MCH 31.1 MCHC 34.0 RDW 18.4 H Plt Count 131 L Seg Neutrophils % 72.1 Lymphocytes % 12.8 L Monocytes % 11.2 Eosinophils % 3.2 Basophils % 0.7 Absolute Neutrophils 5.0 Absolute Lymphocytes 0.9 Absolute Monocytes 0.8 Absolute Eosinophils 0.2 Absolute Basophils 0.1 PT INR APTT VBG pH VBG pCO2 VBG HCO3 VBG Base Excess Sodium 135.6 L Potassium 3.9 Chloride 101 Carbon Dioxide 28 Anion Gap 7 BUN 16 Creatinine 1.31 H Est GFR ( Amer) > 60 Est GFR (Non-Af Amer) 56 L Glucose 142 H Calcium 8.5 Total Bilirubin 1.1 Direct Bilirubin 0.0 AST 52 ALT 37 Alkaline Phosphatase 158 H Ammonia Creatine Kinase 85 CK-MB (CK-2) 1.02 Troponin I < 0.012 NT-Pro-B Natriuret Pep Total Protein 6.6 Albumin 2.5 L 06/16/16 06/16/16 06/16/16 14:35 15:15 15:37 WBC RBC Hgb Hct MCV MCH MCHC RDW Plt Count Seg Neutrophils % Lymphocytes % Monocytes % Eosinophils % Basophils % Absolute Neutrophils Absolute Lymphocytes Absolute Monocytes Absolute Eosinophils Absolute Basophils PT 18.4 H INR 1.48 APTT 32.5 VBG pH 7.37 VBG pCO2 49.9 VBG HCO3 28.3 VBG Base Excess 2.1 Sodium Potassium Chloride Carbon Dioxide Anion Gap BUN Creatinine Est GFR ( Amer) Est GFR (Non-Af Amer) Glucose Calcium Total Bilirubin Direct Bilirubin AST ALT Alkaline Phosphatase Ammonia Creatine Kinase CK-MB (CK-2) Troponin I NT-Pro-B Natriuret Pep 73 Total Protein Albumin 06/16/16 16:44 WBC RBC Hgb Hct MCV MCH MCHC RDW Plt Count Seg Neutrophils % Lymphocytes % Monocytes % Eosinophils % Basophils % Absolute Neutrophils Absolute Lymphocytes Absolute Monocytes Absolute Eosinophils Absolute Basophils PT INR APTT VBG pH VBG pCO2 VBG HCO3 VBG Base Excess Sodium Potassium Chloride Carbon Dioxide Anion Gap BUN Creatinine Est GFR ( Amer) Est GFR (Non-Af Amer) Glucose Calcium Total Bilirubin Direct Bilirubin AST ALT Alkaline Phosphatase Ammonia < 8.7 L Creatine Kinase CK-MB (CK-2) Troponin I NT-Pro-B Natriuret Pep Total Protein Albumin Impressions: Chest X-Ray 06/16/16 14:29 IMPRESSION: Obstructive lung disease with chronic appearing changes. No acute consolidations are identified. There is some blunting of the costophrenic angles which could represent pleural reaction or tiny effusions. Other findings as noted above Assessment & Plan - Diagnosis (1) Acute and chronic respiratory failure with hypoxia Is this a current diagnosis for this admission?: YesPlan: Continue oxygen supplementation. (2) COPD exacerbation Is this a current diagnosis for this admission?: YesPlan: Patient has COPD secondary to alpha-1 antitrypsin deficiency. Start patient on prednisone 40 mg daily. Start azithromycin. Continue bronchodilators. 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 Patient has been followed by [facility] transplant center and has been told that he may not be a candidate for transportation. (6) Hypotension Qualifiers: Hypotension type: unspecified hypotension type Qualified Code(s): I95.9 - Hypotension, unspecified Is this a current diagnosis for this admission?: YesPlan: Continue Midrodrine (7) Xgztf-[id number] deficiency Is this a current diagnosis for this admission?: Yes (8) History of pulmonary embolism Is this a current diagnosis for this admission?: YesPlan: Continue Coumadin 2 mg daily. Monitor PT/INR. (9) Full code status Is this a current diagnosis for this admission?: Yes - Time Time Spent: Greater than 70 Minutes Anticipated discharge: Home Within: within 48 hours
[2016-06-16] MEDS: IPRATROPIUM/ALBUTEROL 0.5-2.5 MG/3 ML AMPUL NEB SCH (20:33)
[2016-06-16] MEDS: WARFARIN SODIUM 2 MG TABLET PO SCH (22:24)
[2016-06-16] MEDS: GABAPENTIN 100 MG CAPSULE PO SCH (22:24)
[2016-06-16] MEDS: POTASSIUM CHLORIDE 10 MEQ TABLET.SA PO SCH (22:25)
[2016-06-16] MEDS: AZITHROMYCIN 250 MG TABLET PO SCH (22:25)
[2016-06-17 07:26] LABS: PROTHROMBIN TIME 19.2 SEC (11.4-15.4)
[2016-06-17 07:35] LABS: ANION GAP 9 (5-19); BLOOD UREA NITROGEN 19 mg/dL (7-20); CALCIUM 8.5 mg/dL (8.4-10.2); CARBON DIOXIDE 23 mmol/L (22-30); CHLORIDE 102 mmol/L (98-107); CREATININE RESULT 1.14 mg/dL (0.52-1.25); GLUCOSE 176 mg/dL (75-110)
[2016-06-17 07:40] LABS: HEMATOCRIT 40.3 % (37.9-51.0); HEMOGLOBIN 13.6 g/dL (13.5-17.0); HGB HCT DIFFERENCE 0.5; MEAN CORPUSCULAR HEMOGLOBIN 31.1 pg (27.0-33.4); MEAN CORPUSCULAR HGB CONC 33.7 g/dL (32.0-36.0); MEAN CORPUSCULAR VOLUME 92 fl (80-97); RED BLOOD COUNT 4.36 10^6/uL (4.35-5.55); RED CELL DISTRIBUTION WIDTH 18.4 % (11.5-14.0); WHITE BLOOD COUNT 6.7 10^3/uL (4.0-10.5)
[2016-06-17 07:43] LABS: POTASSIUM 4.9 mmol/L (3.6-5.0)
[2016-06-17] MEDS: IPRATROPIUM/ALBUTEROL 0.5-2.5 MG/3 ML AMPUL NEB SCH ×3 (08:39→20:17)
[2016-06-17] MEDS: POTASSIUM CHLORIDE 10 MEQ TABLET.SA PO SCH ×2 (09:32→22:09)
[2016-06-17] MEDS: SPIRONOLACTONE 25 MG TABLET PO SCH (09:32)
[2016-06-17] MEDS: MIDODRINE HCL 5 MG TABLET PO SCH ×3 (09:33→17:27)
[2016-06-17] MEDS: PREDNISONE 20 MG TABLET PO SCH (09:34)
[2016-06-17] MEDS: GABAPENTIN 100 MG CAPSULE PO SCH ×2 (09:35→22:10)
[2016-06-17] MEDS: BUMETANIDE 1 MG TABLET PO SCH ×2 (09:53→17:26)
[2016-06-17] MEDS ORDERED: ALBUTEROL SULFATE HFA (90 MCG/PUFF) 8 GM MDI (1 MDI/ER DISP) IH PRN (16:22)
--- NOTE | 2016-06-17 16:25 | PDOC PROGRESS REPORT ---
Subjective Progress Note for:: 06/17/16 Subjective:: Patient shortness of breath has improved but still not act baseline. He is reluctant about being discharged home today. Patient denies fever, chills, headache, new focal weakness, chest pain, abdominal pain, nausea, vomiting, diarrhea, constipation. Physical Exam Vital Signs: Temp Pulse Resp BP Pulse Ox 97.8 F 98 16 98/56 L 93 06/17/16 11:56 06/17/16 13:40 06/17/16 13:40 06/17/16 11:56 06/17/16 13:40 Intake & Output 06/16/16 06/17/16 06/18/16 06:59 06:59 06:59 Intake Total 180 480 Balance 180 480 Weight 76.9 kg GENERAL: No acute distress HEENT: Conjunctiva clear, nonicteric, moist mucous membranes, no JVD, midline trachea RESPIRATORY: Mild wheezes, diminished air excursion CARDIAC: Regular rate and rhythm, no murmurs/gallops/rubs ABDOMEN: Soft, nondistended, nontender, positive bowel sounds, no rebound, no guarding EXTREMETIES: No edema, cyanosis, clubbing NEUROLOGIC: Alert, oriented to person/place/time, CN's grossly intact, no focal deficits SKIN: No rash, wounds PSYCH: Normal mood, normal affect Results Laboratory Results: 06/17/16 06:40 06/17/16 06:40 06/17/16 06/17/16 06/17/16 06:40 06:40 07:49 WBC 6.7 RBC 4.36 Hgb 13.6 Hct 40.3 MCV 92 MCH 31.1 MCHC 33.7 RDW 18.4 H Plt Count 104 L Sodium 134.0 L Potassium 4.9 D Chloride 102 Carbon Dioxide 23 Anion Gap 9 BUN 19 Creatinine 1.14 Est GFR ( Amer) > 60 Est GFR (Non-Af Amer) > 60 Glucose 176 H Calcium 8.5 Stool Occult Blood NEGATIVE Impressions: Chest X-Ray 06/16/16 14:29 IMPRESSION: Obstructive lung disease with chronic appearing changes. No acute consolidations are identified. There is some blunting of the costophrenic angles which could represent pleural reaction or tiny effusions. Other findings as noted above Assessment & Plan - Diagnosis (1) Acute and chronic respiratory failure with hypoxia Is this a current diagnosis for this admission?: YesPlan: Continue oxygen supplementation. (2) COPD exacerbation Is this a current diagnosis for this admission?: YesPlan: Patient has severe COPD secondary to alpha-1 antitrypsin deficiency. Continue prednisone 40 mg daily and azithromycin. Continue bronchodilators. Probable discharge home in a.m. if stable. 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 Patient has been followed by [facility] transplant center and has been told that he may not be a candidate for transplant. (6) Hypotension Qualifiers: Hypotension type: unspecified hypotension type Qualified Code(s): I95.9 - Hypotension, unspecified Is this a current diagnosis for this admission?: YesPlan: Continue Midrodrine (7) [id number] deficiency Is this a current diagnosis for this admission?: Yes (8) History of pulmonary embolism Is this a current diagnosis for this admission?: YesPlan: Continue Coumadin 2 mg daily. Monitor PT/INR. (9) Full code status Is this a current diagnosis for this admission?: Yes - Time Time Spent with patient: 25-34 minutes
[2016-06-17 16:45] LABS: APPEARANCE,URINE CLEAR; BILIRUBIN,URINE NEGATIVE (NEGATIVE); GLUCOSE, URINE NEGATIVE (NEGATIVE); KETONES,URINE NEGATIVE (NEGATIVE); LEUKOCYTE ESTERASE,URINE NEGATIVE (NEGATIVE); NITRITE,URINE NEGATIVE (NEGATIVE); PROTEIN,URINE NEGATIVE (NEGATIVE); URINE SPECIFIC GRAVITY 1.026; UROBILINOGEN,URINE NEGATIVE mg/dL (<2.0)
[2016-06-17] MEDS ORDERED: TAMSULOSIN HCL 0.4 MG CAP.SR.24H PO SCH (18:00)
[2016-06-17] MEDS: FAMOTIDINE 20 MG TABLET PO SCH (22:09)
[2016-06-17] MEDS: WARFARIN SODIUM 2 MG TABLET PO SCH (22:10)
[2016-06-17] MEDS: AZITHROMYCIN 250 MG TABLET PO SCH (22:10)
[2016-06-18 06:21] LABS: ABSOLUTE LYMPHOCYTES (AUTO) 1.1 10^3/uL (0.5-4.7); ABSOLUTE MONOCYTES (AUTO) 0.7 10^3/uL (0.1-1.4); ABSOLUTE NEUT (AUTO) 10.3 10^3/uL (1.7-8.2); BASOPHILS % (AUTO) 0.3 % (0-2); EOSINOPHILS % (AUTO) 0.2 % (0-6); HEMATOCRIT 38.8 % (37.9-51.0); HGB HCT DIFFERENCE 0.2; LYMPHOCYTES % (AUTO) 8.7 % (13-45); MEAN CORPUSCULAR HEMOGLOBIN 31.1 pg (27.0-33.4); MEAN CORPUSCULAR HGB CONC 33.6 g/dL (32.0-36.0); MEAN CORPUSCULAR VOLUME 93 fl (80-97); MONOCYTES % (AUTO) 5.8 % (3-13); RED BLOOD COUNT 4.19 10^6/uL (4.35-5.55); RED CELL DISTRIBUTION WIDTH 18.4 % (11.5-14.0); WHITE BLOOD COUNT 12.1 10^3/uL (4.0-10.5)
[2016-06-18 06:22] LABS: PROTHROMBIN TIME 23.2 SEC (11.4-15.4)
[2016-06-18 06:38] LABS: BLOOD UREA NITROGEN 23 mg/dL (7-20); CALCIUM 8.5 mg/dL (8.4-10.2); CREATININE RESULT 1.23 mg/dL (0.52-1.25); GLUCOSE 110 mg/dL (75-110); POTASSIUM 4.4 mmol/L (3.6-5.0)
[2016-06-18 06:47] LABS: ANION GAP 7 (5-19); CARBON DIOXIDE 24 mmol/L (22-30); CHLORIDE 103 mmol/L (98-107); SODIUM 133.6 mmol/L (137-145)
[2016-06-18] MEDS: IPRATROPIUM/ALBUTEROL 0.5-2.5 MG/3 ML AMPUL NEB SCH (08:29)
[2016-06-18] MEDS: PREDNISONE 20 MG TABLET PO SCH (09:34)
[2016-06-18] MEDS: POTASSIUM CHLORIDE 10 MEQ TABLET.SA PO SCH (09:34)
[2016-06-18] MEDS: FAMOTIDINE 20 MG TABLET PO SCH (09:34)
[2016-06-18] MEDS: BUMETANIDE 1 MG TABLET PO SCH (09:35)
[2016-06-18] MEDS: GABAPENTIN 100 MG CAPSULE PO SCH (09:35)
[2016-06-18] MEDS: MIDODRINE HCL 5 MG TABLET PO SCH ×2 (09:36→13:03)
[2016-06-18] MEDS: SPIRONOLACTONE 25 MG TABLET PO SCH (09:36)
[2016-06-18 12:15] VITALS: BP 89/57
--- NOTE | 2016-06-18 18:23 | PDOC DISCHARGE SUMMARY ---
General - Admit/Disc Date/PCP Admission Date/Primary Care Provider: 06/16/16 18:11 ALFA GRANGER NP Discharge Date: 06/18/16 - Discharge Diagnosis (1) Acute and chronic respiratory failure with hypoxia Is this a current diagnosis for this admission?: YesSummary: The patient was treated with oxygen supplementation. This improved back to the patient's home baseline. (2) COPD exacerbation Is this a current diagnosis for this admission?: YesSummary: The patient has severe COPD due to Alpha I antitrypsin deficiency. The patient was treated with prednisone and azithromycin as well as bronchodilators. He was discharged home on azithromycin, to complete a 7 day course. The prednisone was changed to a Medrol Dosepak. (3) Bgawq-5-nedmawjwrjo deficiency Is this a current diagnosis for this admission?: Yes (4) Cirrhosis of liver with ascites Is this a current diagnosis for this admission?: YesSummary: Hepatic cirrhosis is also secondary to alpha 1 antitrypsin deficiency. He is followed by the [facility] transplant center. (5) Diabetes mellitus type II, controlled Is this a current diagnosis for this admission?: YesSummary: Glucose levels were kept under control using insulin sliding scale. (6) History of pulmonary embolism Is this a current diagnosis for this admission?: YesSummary: The patient will continue on Coumadin. (7) Hypotension Summary: The patient continued on his midodrine therapy. (8) HIT (heparin-induced thrombocytopenia) Is this a current diagnosis for this admission?: Yes - Additional Information Resuscitation Status: Full Code Discharge Diet: As Tolerated Discharge Activity: Activity As Tolerated, Balance Activity w/Rest, Weigh Daily Home Medications: Albuterol Sulfate [Albuterol Sulfate 2.5mg/3 mL] 1 vial IH Q6HP PRN 06/16/16 Albuterol Sulfate [Proair HFA] 2 puff IH Q4HP PRN 06/16/16 Bumetanide [Bumex 1 mg Tablet] 1 mg PO BID 06/16/16 Fluticasone Propionate [Flonase Nasal [place] 50 Mcg/[place] 16 gm] 2 sprays NASL DAILYP PRN 06/16/16 Gabapentin [Neurontin 100 mg Capsule] 100 mg PO Q12 06/16/16 Midodrine HCl 10 mg PO TID 06/16/16 Potassium Chloride [Klor-Con 10] 20 meq PO BID 06/16/16 Spironolactone [Aldactone] 50 mg PO DAILY 06/16/16 Tamsulosin HCl [Flomax 0.4 mg Cap.sr] 0.4 mg PO DAILY@1800 06/16/16 Warfarin Sodium [Coumadin 2 mg Tablet] 2 mg PO DAILY 06/16/16 Azithromycin [Zithromax 250 mg Tablet] 500 mg PO QHS #5 tablet 06/18/16 Methylprednisolone [Medrol Dosepack (4 mg/Tab) 21 Tab/Dosepak] 4 mg PO ASDIR PRN #21 tab.ds.pk 06/18/16 History of Present Illness History of Present Illness: CHATO BRAXTON SR is a 60 year old male with past medical history of alpha-1 antitrypsin deficiency and resulting end-stage COPD and advanced cirrhosis of liver presents with 2 days history of increasing shortness of breath. Patient is followed by hepatology at [facility] and has been recently told that he would not be a good candidate for transplant. He is also followed by a pulmonary medicine specialist in [facility]. He is on continuous home oxygen at baseline. Hospital Course Hospital Course: The patient improved with the use of IV fluids, oral corticosteroids and oral antibiotics. At the time of discharge she was feeling much better and was glad to be going home. Physical Exam Vital Signs: Temp Pulse Resp BP Pulse Ox 97.5 F 99 16 104/55 L 94 06/18/16 12:02 06/18/16 12:02 06/18/16 12:02 06/18/16 12:02 06/18/16 12:02 Intake & Output 06/17/16 06/18/16 06/19/16 06:59 06:59 06:59 Intake Total 180 1380 Balance 180 1380 Weight 76.9 kg 78.2 kg Additional comments: GENERAL: No acute distress HEENT: Conjunctiva clear, nonicteric, moist mucous membranes, no JVD, midline trachea RESPIRATORY: Mild wheezes, diminished air excursion CARDIAC: Regular rate and rhythm, no murmurs/gallops/rubs ABDOMEN: Soft, nondistended, nontender, positive bowel sounds, no rebound, no guarding EXTREMETIES: No edema, cyanosis, clubbing NEUROLOGIC: Alert, oriented to person/place/time, CN's grossly intact, no focal deficits SKIN: No rash, wounds PSYCH: Normal mood, normal affect Results Laboratory Results: 06/18/16 05:39 06/18/16 05:39 06/18/16 06/18/16 05:39 05:39 WBC 12.1 H RBC 4.19 L Hgb 13.0 L Hct 38.8 MCV 93 MCH 31.1 MCHC 33.6 RDW 18.4 H Plt Count 114 L Seg Neutrophils % 85.0 H Lymphocytes % 8.7 L Monocytes % 5.8 Eosinophils % 0.2 Basophils % 0.3 Absolute Neutrophils 10.3 H Absolute Lymphocytes 1.1 Absolute Monocytes 0.7 Absolute Eosinophils 0.0 Absolute Basophils 0.0 Sodium 133.6 L Potassium 4.4 Chloride 103 Carbon Dioxide 24 Anion Gap 7 BUN 23 H Creatinine 1.23 Est GFR ( Amer) > 60 Est GFR (Non-Af Amer) > 60 Glucose 110 Calcium 8.5 Impressions: Chest X-Ray 06/16/16 14:29 IMPRESSION: Obstructive lung disease with chronic appearing changes. No acute consolidations are identified. There is some blunting of the costophrenic angles which could represent pleural reaction or tiny effusions. Other findings as noted above
== END 2016-06-18 13:21 | disposition home or self-care (01) ==
LOC: ER 14:10 → INTOOBSV 17:46 → EH 17:46 → UNDOADMOB 17:46 → EH 18:11 → 3W 06-17 04:23
PROVIDERS: ADMIT Family Medicine; ATTEND Family Medicine
PROC: 3E033GC Introduction of Other Therapeutic Substance into Peripheral Vein, Percutaneous Approach (ICD-10-PCS; principal; 2016-06-16)
DX: J96.21 Acute and chronic respiratory failure with hypoxia (principal); J44.1 Chronic obstructive pulmonary disease with (acute) exacerbation; E88.01 Alpha-1-antitrypsin deficiency; K74.60 Unspecified cirrhosis of liver; R18.8 Other ascites; E11.9 Type 2 diabetes mellitus without complications; I95.9 Hypotension, unspecified; D75.82 Heparin induced thrombocytopenia (HIT); Z99.81 Dependence on supplemental oxygen; Z87.891 Personal history of nicotine dependence; Z86.711 Personal history of pulmonary embolism; Z79.01 Long term (current) use of anticoagulants
CPT/HCPCS: 94640 ×4; 99285; 96374; 36415 ×3; 82553; 82962 ×2; 82140; 82550; 85025 ×2; 85027; 85610 ×3; 85730; 82272; 80048 ×2; 80053; 81001; 84484; 82803; 83880; 71020; G0378 ×3; J3490 ×9; J2930; J7512 ×2; J2405; J7620 ×3

== ENCOUNTER 2016-06-26 15:33 | Inpatient (IN) | payer OTHER, MEDICARE ==
--- NOTE | 2016-06-26 15:45 | ER Document Report ---
ED Medical Screen (RME) - General Chief Complaint: Breathing Difficulty Stated Complaint: SHORTNESS OF BREATH Time seen by provider: 15:44 Mode of Arrival: Wheelchair Information source: Patient Notes: 60-year-old male with COPD /CHF is complaining of shortness of breath despite his 4 L nasal cannula oxygen. Pulse ox 90%. His room is ready he was taken to room 4. I have greeted and performed a rapid initial assessment of this patient. A comprehensive ED assessment, evaluation of the patient, analysis of test results , and completion of the medical decision making process will be conducted by additional ED providers. TRAVEL OUTSIDE OF THE [place] IN LAST 30 DAYS: No - Related Data Allergies/Adverse Reactions: Heparin Analogues [Heparin Agents] Allergy (Severe, Verified 06/16/16 14:25) Thrombocytopenia heparinoids [Heparinoids] Allergy (Severe, Verified 06/16/16 14:25) Thrombocytopenia codeine [Codeine] Allergy (Unknown, Verified 06/16/16 14:25) GI upset Penicillins Allergy (Unknown, Verified 06/16/16 14:25) Swelling doxycycline Allergy (Verified 06/16/16 14:25) Past Medical History - Social History Family history: CAD - Past Medical History Cardiac Medical History: Reports: Hx Congestive Heart Failure - Left ventricular diastolic dysfunction, Hx Coronary Artery Disease, Hx Heart Attack, Hx Pulmonary Embolism Denies: Hx Hypercholesterolemia, Hx Hypertension Pulmonary Medical History: Reports: Hx Asthma, Hx Bronchitis, 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 Denies: Hx Hepatitis Musculoskeltal Medical History: Denies Hx Arthritis Psychiatric Medical History: Denies: Hx Depression Infectious Medical History: Denies: Hx Hepatitis Past Surgical History: Reports: Other - Left chest tube insertion. - Immunizations Hx Diphtheria, Pertussis, Tetanus Vaccination: Yes Physical Exam - Vital signs Vitals: Temp Pulse Resp BP Pulse Ox 98.8 F 113 H 20 93/53 L 90 L 06/26/16 15:37 06/26/16 15:37 06/26/16 15:37 06/26/16 15:37 06/26/16 15:37 Course - Vital Signs Vital signs: Temp Pulse Resp BP Pulse Ox 98.8 F 113 H 20 93/53 L 90 L 06/26/16 15:37 06/26/16 15:37 06/26/16 15:37 06/26/16 15:37 06/26/16 15:37
[2016-06-26] MEDS ORDERED: NORMAL SALINE 1000 ML 1,000 ML IV ONE (15:48)
[2016-06-26] MEDS ORDERED: IPRATROPIUM/ALBUTEROL 0.5-2.5 MG/3 ML AMPUL NEB ONE (15:48)
--- NOTE | 2016-06-26 16:03 | ER Document Report ---
ED Respiratory Problem - General Chief Complaint: Breathing Difficulty Stated Complaint: SHORTNESS OF BREATH Mode of Arrival: Wheelchair Notes: The patient is a 60-year-old male, past medical history end-stage COPD, CAD, CHF , PE, presents from home after he was feeling increased shortness of breath over the past 2 days. His home pulse ox read 70% on his usual 2 L O2 nasal cannula. He spoke to Dr. Nixon and was told to place it up to 4 L and come to the emergency room. He is also having mild diffuse chest pain when he coughs. He denies fevers, chills, nausea, vomiting, back pain, leg swelling, abdominal pain, sputum or recent travel. TRAVEL OUTSIDE OF THE [place] IN LAST 30 DAYS: No - Related Data Allergies/Adverse Reactions: Heparin Analogues [Heparin Agents] Allergy (Severe, Verified 06/16/16 14:25) Thrombocytopenia heparinoids [Heparinoids] Allergy (Severe, Verified 06/16/16 14:25) Thrombocytopenia codeine [Codeine] Allergy (Unknown, Verified 06/16/16 14:25) GI upset Penicillins Allergy (Unknown, Verified 06/16/16 14:25) Swelling doxycycline Allergy (Verified 06/16/16 14:25) Past Medical History - General Information source: Patient - Social History Smoking Status: Unknown if Ever Smoked Family History: CAD, Hypertension, Other - CHF Patient has suicidal ideation: No Patient has homicidal ideation: No - Past Medical History Cardiac Medical History: Reports: Hx Congestive Heart Failure - Left ventricular diastolic dysfunction, Hx Coronary Artery Disease, Hx Heart Attack, Hx Pulmonary Embolism Denies: Hx Hypercholesterolemia, Hx Hypertension Pulmonary Medical History: Reports: Hx Asthma, Hx Bronchitis, 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 Denies: Hx Hepatitis Musculoskeltal Medical History: Denies Hx Arthritis Psychiatric Medical History: Denies: Hx Depression Infectious Medical History: Denies: Hx Hepatitis Past Surgical History: Reports: Other - Left chest tube insertion. - Immunizations Hx Diphtheria, Pertussis, Tetanus Vaccination: Yes Hx Pneumococcal Vaccination: 04/05/14 Review of Systems - Review of Systems Notes: REVIEW OF SYSTEMS: CONSTITUTIONAL: -fevers, -chills EENT: -eye pain, -difficulty swallowing, -nasal congestion CARDIOVASCULAR: +chest pain, -syncope. RESPIRATORY: -cough, +SOB GASTROINTESTINAL: -abdominal pain, -nausea, -vomiting, -diarrhea GENITOURINARY: -dysuria, -hematuria MUSCULOSKELETAL: -back pain, -neck pain SKIN: -rash or skin lesions. HEMATOLOGIC: -easy bruising or bleeding. LYMPHATIC: -swollen, enlarged glands. NEUROLOGICAL: -altered mental status or loss of consciousness, -headache, - neurologic symptoms PSYCHIATRIC: -anxiety, -depression. ALL OTHER SYSTEMS REVIEWED AND NEGATIVE. Physical Exam - Vital signs Vitals: Temp Pulse Resp BP Pulse Ox 98.8 F 113 H 20 93/53 L 90 L 06/26/16 15:37 06/26/16 15:37 06/26/16 15:37 06/26/16 15:37 06/26/16 15:37 - Notes Notes: PHYSICAL EXAMINATION: GENERAL: Well-appearing, well-nourished and in no acute distress. HEAD: Atraumatic, normocephalic. EYES: Pupils equal round and reactive to light, extraocular movements intact, sclera anicteric, conjunctiva are normal. ENT: nares patent, oropharynx clear without exudates. Moist mucous membranes. NECK: Normal range of motion, supple without lymphadenopathy LUNGS: No respiratory distress. Mildly tachypneic. B/L end-expiratory wheezing. Right lower egophany. HEART: Tachycardic, regular rhythm. ABDOMEN: Soft, nontender, normoactive bowel sounds. No guarding, no rebound. No masses appreciated. EXTREMITIES: Normal range of motion, no pitting or edema. No cyanosis. NEUROLOGICAL: Cranial nerves grossly intact. Normal speech, normal gait. Normal sensory, motor, and reflex exams. PSYCH: Normal mood, normal affect. SKIN: Warm, Dry, normal turgor, no rashes or lesions noted. Course - Re-evaluation Re-evalutation: Patient's history status improved after DuoNeb and steroids. Chest x-ray shows possible right lower lobe infiltrate. With leukocytosis and tachycardia, will begin antibiotics. After consultation with Dr. Richards (hospitalist) who know the patient well, will begin Rocephin and Levaquin. Patient in no acute respiratory distress at this time. - Vital Signs Vital signs: Temp Pulse Resp BP Pulse Ox 98.8 F 113 H 18 93/53 L 92 06/26/16 15:37 06/26/16 15:37 06/26/16 16:10 06/26/16 15:37 06/26/16 16:10 - Laboratory Result Diagrams: 06/26/16 16:00 06/26/16 16:00 Laboratory results interpreted by me: 06/26/16 06/26/16 06/26/16 16:00 16:00 16:00 WBC 22.8 H RDW 18.1 H Plt Count 142 L Seg Neuts % (Manual) 86 H Band Neutrophils % 1 L Lymphocytes % (Manual) 7 L Abs Neuts (Manual) 19.8 H PT 19.7 H BUN 21 H Total Bilirubin 1.7 H Alkaline Phosphatase 172 H Albumin 3.2 L - Diagnostic Test Radiology reviewed: Image reviewed, Reports reviewed - EKG Interpretation by Me EKG shows normal: Sinus rhythm, Intervals, QRS Complexes, ST-T Waves [place]/QRS: Right axis deviation Discharge - Discharge Clinical Impression: Hypoxia, COPD exacerbation Pneumonia Qualifiers: Pneumonia type: due to unspecified organism Laterality: left Lung location: unspecified part of lung Qualified Code(s): J18.9 - Pneumonia, unspecified organism Condition: Stable Disposition: ADMITTED INPATIENT Admitting Provider: Geronimo Ward [facility] Unit Admitted: [facility] Referrals: ALFA GRANGER NP [Primary Care Provider] - Follow up as needed
[2016-06-26 16:15] LABS: HEMOGLOBIN 16.5 g/dL (13.5-17.0); HGB HCT DIFFERENCE -0.5; MEAN CORPUSCULAR HEMOGLOBIN 30.4 pg (27.0-33.4); MEAN CORPUSCULAR VOLUME 92 fl (80-97); RED BLOOD COUNT 5.43 10^6/uL (4.35-5.55); RED CELL DISTRIBUTION WIDTH 18.1 % (11.5-14.0); WHITE BLOOD COUNT 22.8 10^3/uL (4.0-10.5)
[2016-06-26 16:18] LABS: PROTHROMBIN TIME 19.7 SEC (11.4-15.4)
[2016-06-26 16:30] LABS: ALANINE AMINOTRANSFERASE 53 U/L (21-72); ALBUMIN 3.2 g/dL (3.5-5.0); ALKALINE PHOSPHATASE 172 U/L (38-126); ANION GAP 8 (5-19); ASPARTATE AMINO TRANSFERASE 40 U/L (17-59); BILIRUBIN,TOTAL 1.7 mg/dL (0.2-1.3); BLOOD UREA NITROGEN 21 mg/dL (7-20); CARBON DIOXIDE 27 mmol/L (22-30); CHLORIDE 103 mmol/L (98-107); CREATINE KINASE 65 U/L (55-170); CREATININE RESULT 1.21 mg/dL (0.52-1.25); GLUCOSE 92 mg/dL (75-110); POTASSIUM 4.2 mmol/L (3.6-5.0); SODIUM 137.9 mmol/L (137-145); TOTAL PROTEIN 7.2 g/dL (6.3-8.2)
[2016-06-26 16:42] LABS: CREATINE KINASE MB 2.17 ng/mL (<4.55)
[2016-06-26 16:43] LABS: ANISOCYTOSIS 2+; BAND NEUTROPHILS % (MANUAL) 1 % (3-5); BASOPHILS % (MANUAL) 1 % (0-2); EOSINOPHILS % (MANUAL) 2 % (0-6); LYMPHOCYTES % (MANUAL) 7 % (13-45); TOTAL CELLS COUNTED 100; TOXIC GRANULATION 1+; TOXIC VACUOLATION PRESENT
[2016-06-26 16:44] LABS: TROPONIN I < 0.012 ng/mL
[2016-06-26] MEDS ORDERED: CEFTRIAXONE INJ 1000 MG VIAL IV ONE (17:12)
[2016-06-26] MEDS ORDERED: METHYLPREDNISOLONE INJ 125 MG/2 ML SDV IV ONE (17:12)
[2016-06-26] MEDS ORDERED: LEVOFLOXACIN 750 MG/D5W RTU 150 ML IV ONE (17:13)
[2016-06-26] MEDS ORDERED: ACETAMINOPHEN 325 MG TABLET PO PRN (17:16)
[2016-06-26] MEDS ORDERED: LEVALBUTEROL HCL NEB 1.25 MG/3 ML AMPUL NEB PRN (17:16)
[2016-06-26] MEDS ORDERED: NORMAL SALINE 1000 ML 1,000 ML IV PRN (17:16)
[2016-06-26] MEDS ORDERED: ALBUTEROL SULFATE HFA (90 MCG/PUFF) 8 GM MDI (1 MDI/ER DISP) IH PRN (17:21)
[2016-06-26] MEDS ORDERED: FLUTICASONE NASAL SPRAY 50 MCG/SPRY 120 SPRAY/16 GM NASL PRN (17:21)
[2016-06-26] MEDS ORDERED: MIDODRINE HCL 5 MG TABLET PO ONE (17:44)
[2016-06-26] MEDS ORDERED: MIDODRINE HCL 5 MG TABLET PO SCH (18:00)
--- NOTE | 2016-06-26 18:02 | PDOC H&P ---
History of Present Illness Admission Date/PCP: ALFA GARNGER NP History of Present Illness: CHATO BRAXTON SR is a 60 year old male with a past medical history significant for alpha-1 antitrypsin presents emergency department with shortness of breath. Patient reports that beginning last night he began having some chest congestion increased shortness of breath and cough. He's had no relief with 3 breathing treatments, one at home and to here in the emergency department. He does report some chills but no fever. He has some chest discomfort mid epigastrically and some indigestion. He took Tums for his indigestion. Patient denies leg swelling PND or orthopnea. He has been around a sick grandson. He also just finished yesterday and antibiotic from discharge which was azithromycin and also finished his steroid yesterday. Patient reports that he had some facial and arm redness will taking this antibiotic. He had no difficulty breathing while taking the antibiotic no. This was azithromycin. He is referred to hospital service for right lower lobe pneumonia and COPD exacerbation. 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 Social History Smoking Status: Unknown if Ever Smoked Frequency of Alcohol Use: None Hx Recreational Drug Use: No Drugs: None Hx Prescription Drug Abuse: No - Advance Directive Resuscitation Status: Full Code Surrogate healthcare decision maker:: Family History Family History: CAD, Hypertension, Other - CHF Parental Family History Reviewed: Yes Children Family History Reviewed: Yes Sibling(s) Family History Reviewed.: Yes Medication/Allergy Home Medications: Albuterol Sulfate [Albuterol Sulfate 2.5mg/3 mL] 1 vial IH Q6HP PRN 02/22/17 Albuterol Sulfate [Proair HFA] 2 puff IH Q4HP PRN 06/16/16 Bumetanide [Bumex 1 mg Tablet] 1 mg PO BID 06/16/16 Fluticasone Propionate [Flonase Nasal [place] 50 Mcg/[place] 16 gm] 2 sprays NASL DAILYP PRN 06/16/16 Gabapentin [Neurontin 100 mg Capsule] 100 mg PO Q12 06/16/16 Midodrine HCl 10 mg PO TID 06/16/16 Potassium Chloride [Klor-Con 10] 20 meq PO BID 06/16/16 Spironolactone [Aldactone] 50 mg PO DAILY 06/16/16 Tamsulosin HCl [Flomax 0.4 mg Cap.sr] 0.4 mg PO DAILY@1800 06/16/16 Warfarin Sodium [Coumadin 2 mg Tablet] 2 mg PO DAILY 06/16/16 Allergies/Adverse Reactions: Heparin Analogues [Heparin Agents] Allergy (Severe, Verified 06/16/16 14:25) Thrombocytopenia heparinoids [Heparinoids] Allergy (Severe, Verified 06/16/16 14:25) Thrombocytopenia codeine [Codeine] Allergy (Unknown, Verified 06/16/16 14:25) GI upset Penicillins Allergy (Unknown, Verified 06/16/16 14:25) Swelling doxycycline Allergy (Verified 06/16/16 14:25) Review of Systems Constitutional: PRESENT: anorexia, chills, fatigue, weight loss. ABSENT: fever( s), headache(s), night sweats, weight gain Eyes: ABSENT: visual disturbances Ears: ABSENT: hearing changes Cardiovascular: ABSENT: chest pain, dyspnea on exertion, edema, orthropnea, palpitations Respiratory: PRESENT: cough, dyspnea. ABSENT: hemoptysis, sputum Gastrointestinal: ABSENT: abdominal pain, constipation, diarrhea, hematemesis, hematochezia, melena, nausea, vomiting Genitourinary: ABSENT: dysuria, hematuria Musculoskeletal: ABSENT: joint swelling Integumentary: ABSENT: rash, wounds Neurological: ABSENT: abnormal gait, abnormal speech, confusion, dizziness, focal weakness, syncope Psychiatric: ABSENT: anxiety, depression, homidical ideation, suicidal ideation Endocrine: ABSENT: cold intolerance, heat intolerance, polydipsia, polyuria Hematologic/Lymphatic: ABSENT: easy bleeding, easy bruising Physical Exam Vital Signs: Temp Pulse Resp BP Pulse Ox 98.8 F 113 H 18 93/53 L 92 06/26/16 15:37 06/26/16 15:37 06/26/16 16:10 06/26/16 15:37 06/26/16 16:10 Intake & Output 06/25/16 06/26/16 06/27/16 06:59 06:59 06:59 Weight 75 kg General appearance: PRESENT: mild distress, well-developed, well-nourished, other - Chronically ill-appearing Head exam: PRESENT: atraumatic, normocephalic Eye exam: PRESENT: conjunctiva pink, EOMI, PERRLA. ABSENT: scleral icterus Ear exam: PRESENT: normal external ear exam Mouth exam: PRESENT: moist, tongue midline Neck exam: ABSENT: JVD, lymphadenopathy, thyromegaly, tracheal deviation Respiratory exam: PRESENT: accessory muscle use, crackles - Right lower lobe, decreased breath sounds - Gen. poor airflow throughout, prolonged expiratory phas, rhonchi - Left lower lobe, symmetrical, tachypnea, other - Egophony right lower lobe, left lower lobe. ABSENT: rales, retraction, stridor, wheezes Cardiovascular exam: PRESENT: RRR, +S1, +S2. ABSENT: diastolic murmur, gallop, rubs, systolic murmur, tachycardia Pulses: PRESENT: normal dorsalis pedis pul Vascular exam: PRESENT: normal capillary refill GI/Abdominal exam: PRESENT: normal bowel sounds, soft. ABSENT: distended, firm , guarding, mass, organolmegaly, rebound, rigid, tenderness Rectal exam: PRESENT: deferred Extremities exam: PRESENT: full ROM. ABSENT: calf tenderness, clubbing, pedal edema Neurological exam: PRESENT: alert, awake, oriented to person, oriented to place , oriented to time, oriented to situation, CN II-XII grossly intact. ABSENT: motor sensory deficit Psychiatric exam: PRESENT: appropriate affect, normal mood. ABSENT: homicidal ideation, suicidal ideation Skin exam: PRESENT: dry, intact, warm. ABSENT: cyanosis, rash Results Laboratory Results: 06/26/16 16:00 06/26/16 16:00 06/26/16 06/26/16 06/26/16 16:00 16:00 16:48 WBC 22.8 H RBC 5.43 Hgb 16.5 Hct 50.0 MCV 92 MCH 30.4 MCHC 33.0 RDW 18.1 H Plt Count 142 L Seg Neutrophils % Not Reportable Lymphocytes % Not Reportable Monocytes % Not Reportable Eosinophils % Not Reportable Basophils % Not Reportable Absolute Neutrophils Not Reportable Absolute Lymphocytes Not Reportable Absolute Monocytes Not Reportable Absolute Eosinophils Not Reportable Absolute Basophils Not Reportable Sodium 137.9 Potassium 4.2 Chloride 103 Carbon Dioxide 27 Anion Gap 8 BUN 21 H Creatinine 1.21 Est GFR ( Amer) > 60 Est GFR (Non-Af Amer) > 60 Glucose 92 Lactic Acid 1.3 Calcium 9.0 Magnesium 2.0 Total Bilirubin 1.7 H AST 40 ALT 53 Alkaline Phosphatase 172 H Total Protein 7.2 Albumin 3.2 L 06/26/16 06/26/16 16:00 16:00 Creatine Kinase 65 CK-MB (CK-2) 2.17 Troponin I < 0.012 NT-Pro-B Natriuret Pep 103 EKG Comments: 06/26/16 06/26/16 06/26/16 16:00 16:00 16:00 WBC 22.8 H RBC 5.43 Plt Count 142 L INR 1.60 Sodium 137.9 Potassium 4.2 BUN 21 H Creatinine 1.21 Total Bilirubin 1.7 H Albumin 3.2 L Impressions: Chest X-Ray 06/26/16 16:50 IMPRESSION: COPD. Chronic parenchymal changes noted throughout the lungs, similar to prior studies. Sensitivity for detecting subtle underlying infiltrate in these regions is decreased to the chronic changes within the parenchyma though no significant opacities are seen. My interpretation: Perhaps new or developing infiltrate in right lower lobe and left lower lobe Assessment & Plan - Diagnosis (1) COPD exacerbation Is this a current diagnosis for this admission?: YesPlan: Place patient on Solu-Medrol and scheduled nebulized treatments. Secondary to alpha-1 antitrypsin deficiency. Suspect environmental exacerbation by recent increase in pollen and volatile weather. (2) Pneumonia Qualifiers: Pneumonia type: due to unspecified organism Laterality: bilateral Lung location: lower lobe of lung Qualified Code(s): J18.9 - Pneumonia, unspecified organism Is this a current diagnosis for this admission?: YesPlan: Difficult to evaluate secondary to patient's chronic changes though patient does have left lower lobe egophony and tactile fremitus. Patient recently hospitalized, but has never had MRSA or pseudomonas. Patient has however had C. difficile colitis which does concern me for starting broad-spectrum antibiotics without patient being emergently in extremis. Obtain sputum culture and aggressive pulmonary toileting. (3) Acute and chronic respiratory failure Qualifiers: Respiratory failure complication: hypoxia Qualified Code(s): J96.21 - Acute and chronic respiratory failure with hypoxia Is this a current diagnosis for this admission?: YesPlan: Patient currently requiring 4-5 L of oxygen and he normally uses 2Lnc. Continue oxygen supplementation as required. (4) CHF (congestive heart failure) Qualifiers: Congestive heart failure type: diastolic Congestive heart failure chronicity: chronic Qualified Code(s): I50.32 - Chronic diastolic ( congestive) heart failure Is this a current diagnosis for this admission?: YesPlan: Patient currently dehydrated. We'll be judicious and fluid administration. (5) Pulmonary hypertension Is this a current diagnosis for this admission?: Yes (6) [id number] deficiency Is this a current diagnosis for this admission?: Yes (7) Anticoagulated Is this a current diagnosis for this admission?: Yes (8) Chronic respiratory failure with hypoxia Is this a current diagnosis for this admission?: Yes (9) Gastroesophageal reflux disease Qualifiers: Esophagitis presence: esophagitis presence not specified Qualified Code (s): K21.9 - Gastro-esophageal reflux disease without esophagitis Is this a current diagnosis for this admission?: YesPlan: We'll place Tums as needed (10) History of pulmonary embolism Is this a current diagnosis for this admission?: YesPlan: Continue Coumadin (11) Subtherapeutic international normalized ratio (INR) Is this a current diagnosis for this admission?: YesPlan: Will monitor as patient will now be on antibiotics which may alter his INR. If it continues to decline tomorrow will give one-time dose of Arixtra. Patient has heparin and heparinoid allergy - Time Time Spent: 50 to 70 Minutes Medications reviewed and adjusted accordingly: Yes Anticipated discharge: Home - Inpatient Certification Based on my medical assessment, after consideration of the patient's comorbidities, presenting symptoms, or acuity I expect that the services needed warrant INPATIENT care.: Yes I certify that my determination is in accordance with my understanding of Medicare's requirements for reasonable and necessary INPATIENT services [42 CFR 412.3e].: Yes Medical Necessity: Need For IV Fluids, Need for Nebulizer Therapy and Monitoring of Response Post Hospital Care: D/C Staff Accountant Documentation
--- NOTE | 2016-06-26 19:45 | EKG REPORT ---
SEVERITY:- BORDERLINE ECG - SINUS TACHYCARDIA RIGHT AXIS DEVIATION LOW VOLTAGE THROUGHOUT : Confirmed by: Tamir Baron MD 26-Jun-2016 19:44:41
[2016-06-26] MEDS: IPRATROPIUM/ALBUTEROL 0.5-2.5 MG/3 ML AMPUL NEB SCH (19:50)
[2016-06-26] MEDS: METHYLPREDNISOLONE INJ 40 MG/1 ML SDV IV SCH (22:51)
[2016-06-26] MEDS: TAMSULOSIN HCL 0.4 MG CAP.SR.24H PO SCH (22:54)
[2016-06-26] MEDS: GUAIFENESIN 600 MG TABLET.SA PO SCH (22:54)
[2016-06-26] MEDS: WARFARIN SODIUM 2 MG TABLET PO SCH (22:55)
[2016-06-26] MEDS: GABAPENTIN 100 MG CAPSULE PO SCH (22:55)
[2016-06-26] MEDS: BUMETANIDE 1 MG TABLET PO SCH (23:39)
[2016-06-27 04:48] LABS: HEMATOCRIT 40.1 % (37.9-51.0); HGB HCT DIFFERENCE 0.1; MEAN CORPUSCULAR HEMOGLOBIN 30.7 pg (27.0-33.4); MEAN CORPUSCULAR HGB CONC 33.5 g/dL (32.0-36.0); MEAN CORPUSCULAR VOLUME 92 fl (80-97); RED BLOOD COUNT 4.38 10^6/uL (4.35-5.55); RED CELL DISTRIBUTION WIDTH 17.9 % (11.5-14.0); WHITE BLOOD COUNT 14.7 10^3/uL (4.0-10.5)
[2016-06-27 04:52] LABS: PROTHROMBIN TIME 20.5 SEC (11.4-15.4)
[2016-06-27 05:06] LABS: HEMOGLOBIN 13.4 g/dL (13.5-17.0)
[2016-06-27 05:10] LABS: BASOPHILS % (MANUAL) 0 % (0-2); EOSINOPHILS % (MANUAL) 0 % (0-6); LYMPHOCYTES % (MANUAL) 1 % (13-45); TOTAL CELLS COUNTED 100
[2016-06-27 05:12] LABS: ANION GAP 7 (5-19); BLOOD UREA NITROGEN 26 mg/dL (7-20); CALCIUM 8.4 mg/dL (8.4-10.2); CARBON DIOXIDE 24 mmol/L (22-30); CHLORIDE 104 mmol/L (98-107); CREATININE RESULT 1.15 mg/dL (0.52-1.25); GLUCOSE 218 mg/dL (75-110); POTASSIUM 4.6 mmol/L (3.6-5.0); SODIUM 134.8 mmol/L (137-145)
[2016-06-27 05:15] LABS: ANISOCYTOSIS 2+; OVALOCYTES SLIGHT; POLYCHROMASIA SLIGHT; TOXIC GRANULATION SLIGHT
[2016-06-27] MEDS: METHYLPREDNISOLONE INJ 40 MG/1 ML SDV IV SCH ×3 (06:22→22:13)
[2016-06-27] MEDS ORDERED: DEXTROSE 40% GEL 15 GM TUBE PO PRN ×2 (07:44)
[2016-06-27] MEDS ORDERED: INSULIN LISPRO 100 UNIT/ML 3 ML VIAL SUBCUT PRN (07:44)
[2016-06-27] MEDS ORDERED: DEXTROSE 50%-WATER 25 GM/50 ML DISP.SYRIN IV PRN ×2 (07:44)
[2016-06-27] MEDS ORDERED: GLUCAGON,HUMAN RECOMB 1 MG INJ IM PRN (07:44)
[2016-06-27] MEDS ORDERED: FLUTICASONE NASAL SPRAY 50 MCG/SPRY 120 SPRAY/16 GM NASL PRN ×2 (07:45→09:38)
[2016-06-27] MEDS ORDERED: PHARMACY COMMUNICATION ORDER MC NR (07:45)
[2016-06-27] MEDS: IPRATROPIUM/ALBUTEROL 0.5-2.5 MG/3 ML AMPUL NEB SCH ×4 (08:27→19:41)
[2016-06-27] MEDS: CEFTRIAXONE 1 GM/D5W RTU 50 ML IV SCH (09:34)
[2016-06-27] MEDS: GABAPENTIN 100 MG CAPSULE PO SCH ×2 (09:35→22:14)
[2016-06-27] MEDS: GUAIFENESIN 600 MG TABLET.SA PO SCH ×2 (09:35→22:14)
[2016-06-27] MEDS: SPIRONOLACTONE 25 MG TABLET PO SCH (09:35)
[2016-06-27] MEDS ORDERED: SPIRONOLACTONE 25 MG TABLET PO SCH (10:00)
[2016-06-27] MEDS: BUMETANIDE 1 MG TABLET PO SCH ×2 (10:45→18:21)
[2016-06-27] MEDS: LEVOFLOXACIN 750 MG/D5W RTU 150 ML IV SCH (10:58)
[2016-06-27] MEDS ORDERED: MIDODRINE HCL 5 MG TABLET PO SCH (12:00)
[2016-06-27] MEDS: MIDODRINE HCL 5 MG TABLET PO SCH (16:25)
--- NOTE | 2016-06-27 16:26 | PDOC PROGRESS REPORT ---
Subjective Progress Note for:: 06/27/16 Subjective:: Patient kylee acute events overnight. clines use of Accu-Cheks and sliding scale insulin. Patient also requests Pro Air inhaler at bedside. Patient continues to be short of breath more than baseline. Patient denies chest pain, abdominal pain, nausea, vomiting, fevers, chills, diarrhea, constipation. Physical Exam Vital Signs: Temp Pulse Resp BP Pulse Ox 97.7 F 92 18 92/56 L 94 06/27/16 05:11 06/27/16 05:11 06/27/16 05:11 06/27/16 05:15 06/27/16 05:11 Intake & Output 06/26/16 06/27/16 06/28/16 06:59 06:59 06:59 Intake Total 1403 Output Total 600 Balance 803 Weight 77.4 kg Exam: General: Awake alert and oriented x3, no acute respiratory distress HEENT: AT/NC, PERRL, EOMI, oropharynx is moist, pink, no scleral icterus, no conjunctival injection Neck: + JVD, trachea midline Chest: Modified tripod position, tachypnea, overall poor air excursion but otherwise clear CV: Regular rate and rhythm, normal S1 and S2, no rub, or gallop Abdomen: Soft, nontender to palpation, nondistended, active bowel sounds; no rebound, rigidity, or guarding Extremities: No cyanosis, clubbing; 2+edema Neuro: Cranial nerves II through XII are grossly intact without focal deficits; awake alert and oriented x3 Psych: Normal mood and affect Results Laboratory Results: 06/27/16 04:37 06/27/16 04:37 06/27/16 06/27/16 04:37 04:37 WBC 14.7 H RBC 4.38 Hgb 13.4 L D Hct 40.1 MCV 92 MCH 30.7 MCHC 33.5 RDW 17.9 H Plt Count 76 L Seg Neutrophils % Not Reportable Lymphocytes % Not Reportable Monocytes % Not Reportable Eosinophils % Not Reportable Basophils % Not Reportable Absolute Neutrophils Not Reportable Absolute Lymphocytes Not Reportable Absolute Monocytes Not Reportable Absolute Eosinophils Not Reportable Absolute Basophils Not Reportable Sodium 134.8 L Potassium 4.6 Chloride 104 Carbon Dioxide 24 Anion Gap 7 BUN 26 H Creatinine 1.15 Est GFR ( Amer) > 60 Est GFR (Non-Af Amer) > 60 Glucose 218 H Calcium 8.4 Impressions: Chest X-Ray 06/26/16 16:50 IMPRESSION: COPD. Chronic parenchymal changes noted throughout the lungs, similar to prior studies. Sensitivity for detecting subtle underlying infiltrate in these regions is decreased to the chronic changes within the parenchyma though no significant opacities are seen. Assessment & Plan - Diagnosis (1) COPD exacerbation Is this a current diagnosis for this admission?: YesPlan: Patient on Solu-Medrol and scheduled nebulized treatments. Secondary to alpha- 1 antitrypsin deficiency. Suspect environmental exacerbation by recent increase in pollen and volatile weather. Decrease Solu-Medrol today. (2) Pneumonia Qualifiers: Pneumonia type: due to unspecified organism Laterality: bilateral Lung location: lower lobe of lung Qualified Code(s): J18.9 - Pneumonia, unspecified organism Is this a current diagnosis for this admission?: YesPlan: Difficult to evaluate secondary to patient's chronic changes though patient does have left lower lobe egophony and tactile fremitus. Patient currently on Rocephin and Levaquin day #2 (3) Acute and chronic respiratory failure Qualifiers: Respiratory failure complication: hypoxia Qualified Code(s): J96.21 - Acute and chronic respiratory failure with hypoxia Is this a current diagnosis for this admission?: YesPlan: Patient currently requiring 4-5 L of oxygen and he normally uses 2Lnc. Continue oxygen supplementation as required. (4) CHF (congestive heart failure) Qualifiers: Congestive heart failure type: diastolic Congestive heart failure chronicity: acute on chronic Qualified Code(s): I50.33 - Acute on chronic diastolic (congestive) heart failure Is this a current diagnosis for this admission?: YesPlan: Last echo done on 11/25/2014 reveals grade 2 diastolic dysfunction. If no more recent echo exists will consider repeat echo at this time. Patient currently mildly volume overloaded. Resume Lasix and spironolactone. Patient unable to tolerate Ricky/ARB secondary to chronic hypotension. Patient unable to take beta perry secondary to bronchospastic disease/ hypertension. (5) Pulmonary hypertension Is this a current diagnosis for this admission?: Yes (6) Rvpuf-3-fykyoklqupe deficiency Is this a current diagnosis for this admission?: YesPlan: Patient was evaluated for liver transplant and declined (7) Anticoagulated Is this a current diagnosis for this admission?: Yes (8) Chronic respiratory failure with hypoxia Is this a current diagnosis for this admission?: Yes (9) Gastroesophageal reflux disease Qualifiers: Esophagitis presence: esophagitis presence not specified Qualified Code(s): K21.9 - Gastro-esophageal reflux disease without esophagitis Is this a current diagnosis for this admission?: Yes (10) History of pulmonary embolism Is this a current diagnosis for this admission?: YesPlan: Continue Coumadin (11) Subtherapeutic international normalized ratio (INR) Is this a current diagnosis for this admission?: YesPlan: Will monitor as patient will now be on antibiotics which may alter his INR. Patient has heparin and heparinoid allergy
[2016-06-27] MEDS: TAMSULOSIN HCL 0.4 MG CAP.SR.24H PO SCH (18:20)
[2016-06-27] MEDS: CALCIUM CARBONATE 500 MG TAB.CHEW PO PRN (22:14)
[2016-06-27] MEDS: WARFARIN SODIUM 2 MG TABLET PO SCH (22:14)
[2016-06-27] MEDS: LORATADINE 10 MG TABLET PO SCH (22:15)
[2016-06-27] MEDS: MONTELUKAST SODIUM 10 MG TABLET PO SCH (22:15)
[2016-06-28] MEDS: METHYLPREDNISOLONE INJ 40 MG/1 ML SDV IV SCH (05:24)
[2016-06-28] MEDS: MIDODRINE HCL 5 MG TABLET PO SCH ×3 (05:25→15:17)
[2016-06-28 06:55] LABS: PROTHROMBIN TIME 18.4 SEC (11.4-15.4)
[2016-06-28 06:58] LABS: HEMATOCRIT 40.9 % (37.9-51.0); HEMOGLOBIN 13.5 g/dL (13.5-17.0); HGB HCT DIFFERENCE -0.4; MEAN CORPUSCULAR HEMOGLOBIN 30.6 pg (27.0-33.4); MEAN CORPUSCULAR HGB CONC 33.1 g/dL (32.0-36.0); MEAN CORPUSCULAR VOLUME 93 fl (80-97); RED BLOOD COUNT 4.42 10^6/uL (4.35-5.55); RED CELL DISTRIBUTION WIDTH 18.1 % (11.5-14.0); WHITE BLOOD COUNT 24.3 10^3/uL (4.0-10.5)
[2016-06-28 07:05] LABS: ANION GAP 10 (5-19); BLOOD UREA NITROGEN 35 mg/dL (7-20); CALCIUM 8.9 mg/dL (8.4-10.2); CARBON DIOXIDE 23 mmol/L (22-30); CHLORIDE 104 mmol/L (98-107); CREATININE RESULT 1.28 mg/dL (0.52-1.25); GLUCOSE 182 mg/dL (75-110); POTASSIUM 4.6 mmol/L (3.6-5.0); SODIUM 136.6 mmol/L (137-145)
[2016-06-28 07:20] LABS: BASOPHILS % (MANUAL) 0 % (0-2); EOSINOPHILS % (MANUAL) 0 % (0-6); LYMPHOCYTES % (MANUAL) 1 % (13-45); TOTAL CELLS COUNTED 100
[2016-06-28 07:24] LABS: ANISOCYTOSIS 2+
[2016-06-28] MEDS: IPRATROPIUM/ALBUTEROL 0.5-2.5 MG/3 ML AMPUL NEB SCH ×4 (07:57→20:01)
[2016-06-28 08:17] LABS: APPEARANCE,URINE CLEAR; BILIRUBIN,URINE NEGATIVE (NEGATIVE); GLUCOSE, URINE NEGATIVE (NEGATIVE); KETONES,URINE NEGATIVE (NEGATIVE); LEUKOCYTE ESTERASE,URINE NEGATIVE (NEGATIVE); NITRITE,URINE NEGATIVE (NEGATIVE); PROTEIN,URINE NEGATIVE (NEGATIVE); URINE SPECIFIC GRAVITY 1.017; UROBILINOGEN,URINE NEGATIVE mg/dL (<2.0)
[2016-06-28] MEDS ORDERED: FLUTICASONE NASAL SPRAY 50 MCG/SPRY 120 SPRAY/16 GM NASL PRN (10:15)
[2016-06-28] MEDS ORDERED: PREDNISONE 20 MG TABLET PO ONE (11:00)
[2016-06-28] MEDS: CEFTRIAXONE 1 GM/D5W RTU 50 ML IV SCH (11:53)
[2016-06-28] MEDS: BUMETANIDE 1 MG TABLET PO SCH ×2 (11:54→18:26)
[2016-06-28] MEDS: SPIRONOLACTONE 25 MG TABLET PO SCH (11:58)
[2016-06-28] MEDS: GABAPENTIN 100 MG CAPSULE PO SCH ×2 (11:59→21:21)
[2016-06-28] MEDS: SODIUM CHLORIDE NASAL SPRAY 44 ML NASL SCH ×3 (12:00→21:21)
[2016-06-28] MEDS: LEVOFLOXACIN 750 MG/D5W RTU 150 ML IV SCH (13:20)
[2016-06-28] MEDS: CALCIUM CARBONATE 500 MG TAB.CHEW PO PRN ×2 (15:23→21:21)
[2016-06-28] MEDS: PREDNISONE 20 MG TABLET PO SCH (18:28)
[2016-06-28] MEDS: TAMSULOSIN HCL 0.4 MG CAP.SR.24H PO SCH (18:28)
--- NOTE | 2016-06-28 18:51 | XCELERA REPORT ---
[address] [address] Transthoracic Echocardiogram Report Name: CHATO BRAXTON SR Age: 60 yrs Gender: Male : 1955 Patient Status: Inpatient Patient Location: [id number]\S\316\S\A Study Date: 06/28/2016 10:59 AM Height: 69 in Weight: 171 lb BSA: 1.9 m2 Procedure: A two-dimensional transthoracic echocardiogram with color flow and Doppler was performed. Study Quality: Technically suboptimal. Poor endocardial defenition, and poor doppler interogation. Reason For Study: CHF History: CHF. Ordering Physician: ROSA OBRIEN Performed By: Key Morfin Interpretation Summary Poor endocardial defenition, and poor doppler interogation. The left ventricle is normal in size. There is normal left ventricular wall thickness. LV EF is 60% Left ventricular systolic function is normal. Doppler measurements suggest normal left ventricular diastolic function The left ventricular wall motion is normal. There is no thrombus. Not a good study to assess for ASD , VSD , or PFO. Probaly nno RV enlargement. The left atrial size is normal. There is no evidence of mitral valve prolapse. There is no mitral valve stenosis. Cannot exclude trace MR. There is no aortic valve stenosis There is no LVOT obstruction. No aortic regurgitation is present. There is no tricuspid stenosis. There is a trace amount of tricuspid regurgitation Right ventricular systolic pressure is normal. RVSP is 29 mm of Hg , with RA mean of5. There is no pericardial effusion. MMode/2D Measurements \T\ Calculations RVDd: 2.7 cm LVIDd: 4.6 cm FS: 30.9 % Ao root diam: 3.3 cm IVSd: 0.75 cm LVIDs: 3.2 cm EDV(Teich): 99.0 ml LVPWd: 0.75 cm ESV(Teich): 41.1 ml Ao root area: 8.6 cm2 EF(Teich): 58.5 % LA dimension: 3.2 cm Doppler Measurements \T\ Calculations MV E max ronnie: MV P1/2t max ronnie: Ao V2 max: LV V1 max P.4 cm/sec 83.4 cm/sec 86.4 cm/sec 3.7 mmHg MV A max ronnie: MV P1/2t: 66.1 msec Ao max PG: LV V1 max: 61.7 cm/sec 3.0 mmHg 96.7 cm/sec MV E/A: 1.3 MVA(P1/2t): 3.3 cm2 MV dec slope: 369.4 cm/sec2 MV dec time: 0.21 sec PA V2 max: TR max ronnie: 85.4 cm/sec 245.0 cm/sec PA max PG: TR max P.0 mmHg 2.9 mmHg Left Ventricle The left ventricle is normal in size. There is normal left ventricular wall thickness. LV EF is 60%. Left ventricular systolic function is normal. Doppler measurements suggest normal left ventricular diastolic function. The left ventricular wall motion is normal. There is no thrombus. Not a good study to assess for ASD , VSD , or PFO. Right Ventricle Probaly nno RV enlargement. Atria The right atrium is normal. The left atrial size is normal. Mitral Valve There is no evidence of mitral valve prolapse. There is no vegetation seen on the mitral valve. There is no mitral valve stenosis. Cannot exclude trace MR. Aortic Valve There is no aortic valve stenosis. There is no LVOT obstruction. No aortic regurgitation is present. Tricuspid Valve There is no tricuspid stenosis. There is a trace amount of tricuspid regurgitation. Right ventricular systolic pressure is normal. RVSP is 29 mm of Hg , with RA mean of5. Pulmonic Valve The pulmonic valve is not well visualized. Great Vessels The aortic root is not well visualized. Effusions There is no pericardial effusion. : ROSA OBRIEN > Olimpia Narayan
--- NOTE | 2016-06-28 21:13 | PDOC PROGRESS REPORT ---
Subjective Progress Note for:: 06/28/16 Subjective:: No acute events overnight. Patient seen earlier today on morning rounds. Patient continues to be short of breath more than baseline. Patient denies chest pain, abdominal pain, nausea, vomiting, fevers, chills, diarrhea, constipation. Physical Exam Vital Signs: Temp Pulse Resp BP Pulse Ox 97.5 F 100 20 106/63 90 L 06/28/16 15:30 06/28/16 19:00 06/28/16 16:11 06/28/16 15:30 06/28/16 16:11 Intake & Output 06/27/16 06/28/16 06/29/16 06:59 06:59 06:59 Intake Total 1403 1511 1506 Output Total 600 852 Balance 978 550 7461 Weight 77.4 kg 77.8 kg Exam: General: Awake alert and oriented x3, mild respiratory distress HEENT: AT/NC, PERRL, EOMI, oropharynx is moist, pink, no scleral icterus, no conjunctival injection Neck: + JVD, trachea midline Chest: overall poor air excursion but otherwise clear CV: Regular rate and rhythm, normal S1 and S2, no rub, or gallop Abdomen: Soft, nontender to palpation, nondistended, active bowel sounds; no rebound, rigidity, or guarding Extremities: No cyanosis, clubbing; trace edema Neuro: Cranial nerves II through XII are grossly intact without focal deficits; awake alert and oriented x3 Psych: Normal mood and affect Results Laboratory Results: 06/28/16 05:41 06/28/16 05:41 06/28/16 06/28/16 06/28/16 05:41 05:41 07:50 WBC 24.3 H RBC 4.42 Hgb 13.5 Hct 40.9 MCV 93 MCH 30.6 MCHC 33.1 RDW 18.1 H Plt Count 113 L Seg Neutrophils % Not Reportable Lymphocytes % Not Reportable Monocytes % Not Reportable Eosinophils % Not Reportable Basophils % Not Reportable Absolute Neutrophils Not Reportable Absolute Lymphocytes Not Reportable Absolute Monocytes Not Reportable Absolute Eosinophils Not Reportable Absolute Basophils Not Reportable Sodium 136.6 L Potassium 4.6 Chloride 104 Carbon Dioxide 23 Anion Gap 10 BUN 35 H Creatinine 1.28 H Est GFR ( Amer) > 60 Est GFR (Non-Af Amer) 57 L Glucose 182 H Calcium 8.9 Urine Color YELLOW Urine Appearance CLEAR Urine pH 5.0 Ur Specific [place] 1.017 Urine Protein NEGATIVE Urine Glucose (UA) NEGATIVE Urine Ketones NEGATIVE Urine Blood NEGATIVE Urine Nitrite NEGATIVE Ur Leukocyte Esterase NEGATIVE Urine WBC (Auto) 1 Urine RBC (Auto) 0 Impressions: Chest X-Ray 06/26/16 16:50 IMPRESSION: COPD. Chronic parenchymal changes noted throughout the lungs, similar to prior studies. Sensitivity for detecting subtle underlying infiltrate in these regions is decreased to the chronic changes within the parenchyma though no significant opacities are seen. Assessment & Plan - Diagnosis (1) COPD exacerbation Is this a current diagnosis for this admission?: YesPlan: Transition patient to prednisone and continue scheduled nebulized treatments. Secondary to alpha-1 antitrypsin deficiency. Suspect environmental exacerbation by recent increase in pollen and volatile weather. (2) Pneumonia Qualifiers: Pneumonia type: due to unspecified organism Laterality: bilateral Lung location: lower lobe of lung Qualified Code(s): J18.9 - Pneumonia, unspecified organism Is this a current diagnosis for this admission?: YesPlan: Difficult to evaluate secondary to patient's chronic changes. Patient currently on Rocephin and Levaquin day #3. Sputum culture sent and pending (3) Acute and chronic respiratory failure Qualifiers: Respiratory failure complication: hypoxia Qualified Code(s): J96.21 - Acute and chronic respiratory failure with hypoxia Is this a current diagnosis for this admission?: Yes (4) CHF (congestive heart failure) Qualifiers: Congestive heart failure type: diastolic Congestive heart failure chronicity: acute on chronic Qualified Code(s): I50.33 - Acute on chronic diastolic (congestive) heart failure Is this a current diagnosis for this admission?: YesPlan: Last echo done on 11/25/2014 reveals grade 2 diastolic dysfunction. pending repeat echo at this time. Patient currently mildly volume overloaded. Resume Lasix and spironolactone. Patient unable to tolerate Ricky/ARB secondary to chronic hypotension. Patient unable to take beta perry secondary to bronchospastic disease/ hypertension. (5) Pulmonary hypertension Is this a current diagnosis for this admission?: Yes (6) Cuvkd-8-[id number] deficiency Is this a current diagnosis for this admission?: YesPlan: Patient was evaluated for liver transplant and declined (7) Anticoagulated Is this a current diagnosis for this admission?: Yes (8) Chronic respiratory failure with hypoxia Is this a current diagnosis for this admission?: Yes (9) Gastroesophageal reflux disease Qualifiers: Esophagitis presence: esophagitis presence not specified Qualified Code(s): K21.9 - Gastro-esophageal reflux disease without esophagitis Is this a current diagnosis for this admission?: Yes (10) History of pulmonary embolism Is this a current diagnosis for this admission?: Yes (11) Subtherapeutic international normalized ratio (INR) Is this a current diagnosis for this admission?: YesPlan: Will monitor as patient will now be on antibiotics which may alter his INR. Patient has heparin and heparinoid allergy have increased patient's Coumadin. - Time Time Spent with patient: 25-34 minutes Medications reviewed and adjusted accordingly: Yes Anticipated discharge: Home Within: within 48 hours
[2016-06-28] MEDS: MONTELUKAST SODIUM 10 MG TABLET PO SCH (21:21)
[2016-06-28] MEDS: LORATADINE 10 MG TABLET PO SCH (21:21)
[2016-06-28] MEDS ORDERED: WARFARIN SODIUM 3 MG TABLET PO SCH (22:00)
[2016-06-29 05:48] LABS: HEMATOCRIT 39.3 % (37.9-51.0); HEMOGLOBIN 13.2 g/dL (13.5-17.0); HGB HCT DIFFERENCE 0.3; MEAN CORPUSCULAR HGB CONC 33.7 g/dL (32.0-36.0); MEAN CORPUSCULAR VOLUME 92 fl (80-97); RED BLOOD COUNT 4.27 10^6/uL (4.35-5.55); RED CELL DISTRIBUTION WIDTH 18.1 % (11.5-14.0); WHITE BLOOD COUNT 13.3 10^3/uL (4.0-10.5)
[2016-06-29] MEDS: MIDODRINE HCL 5 MG TABLET PO SCH ×3 (05:51→15:47)
[2016-06-29 05:53] LABS: PROTHROMBIN TIME 21.3 SEC (11.4-15.4)
[2016-06-29 06:02] LABS: ANION GAP 7 (5-19); BLOOD UREA NITROGEN 32 mg/dL (7-20); CALCIUM 8.9 mg/dL (8.4-10.2); CARBON DIOXIDE 25 mmol/L (22-30); CHLORIDE 106 mmol/L (98-107); CREATININE RESULT 1.15 mg/dL (0.52-1.25); GLUCOSE 196 mg/dL (75-110); POTASSIUM 4.2 mmol/L (3.6-5.0)
[2016-06-29 06:18] LABS: BASOPHILS % (MANUAL) 0 % (0-2); EOSINOPHILS % (MANUAL) 0 % (0-6); LYMPHOCYTES % (MANUAL) 2 % (13-45); TOTAL CELLS COUNTED 100
[2016-06-29 06:19] LABS: ANISOCYTOSIS 1+
[2016-06-29] MEDS: IPRATROPIUM/ALBUTEROL 0.5-2.5 MG/3 ML AMPUL NEB SCH ×3 (08:13→16:05)
[2016-06-29] MEDS: SODIUM CHLORIDE NASAL SPRAY 44 ML NASL SCH ×3 (08:14→15:47)
[2016-06-29] MEDS: SPIRONOLACTONE 25 MG TABLET PO SCH (09:50)
[2016-06-29] MEDS: PREDNISONE 20 MG TABLET PO SCH (09:50)
[2016-06-29] MEDS: GABAPENTIN 100 MG CAPSULE PO SCH (09:50)
[2016-06-29] MEDS: BUMETANIDE 1 MG TABLET PO SCH (09:51)
[2016-06-29] MEDS ORDERED: LEVOFLOXACIN 750 MG TABLET PO SCH (10:00)
--- NOTE | 2016-06-29 16:18 | PDOC DISCHARGE SUMMARY ---
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) Is this a current diagnosis for this admission?: Yes (6) Cirrhosis of liver with ascites Is this a current diagnosis for this admission?: Yes (7) Pulmonary embolus, left Is this a current diagnosis for this admission?: Yes (8) Algsk-4-gkitpsywvoc deficiency Is this a current diagnosis for this admission?: Yes (9) Diastolic CHF Is this a current diagnosis for this admission?: Yes (10) Gastroesophageal reflux disease Is this a current diagnosis for this admission?: Yes (11) Full code status Is this a current diagnosis for this admission?: Yes (12) Hypotension Is this a current diagnosis for this admission?: Yes - Additional Information Resuscitation Status: Full Code Discharge Activity: Activity As Tolerated, Balance Activity w/Rest, Weigh Daily Home Medications: Albuterol Sulfate [Albuterol Sulfate 2.5mg/3 mL] 2.5 mg IH PRN PRN 06/27/16 Albuterol Sulfate [Proair HFA] 1 puff IH PRN PRN 06/27/16 Bumetanide [Bumex 1 mg Tablet] 1 mg PO BID 06/27/16 Fluticasone Propionate [Flonase Nasal [place] 50 Mcg/[place] 16 gm] 2 sprays NASL DAILYP PRN 06/27/16 Gabapentin [Neurontin 100 mg Capsule] 100 mg PO Q12 06/27/16 Ipratropium/Albuterol Sulfate [Duoneb 3 ml Ampul] 3 ml NEB RTQ4HP PRN 06/27/16 Midodrine HCl 10 mg PO TID 06/27/16 Potassium Chloride 20 meq PO BID 06/27/16 Spironolactone [Aldactone] 50 mg PO DAILY 06/27/16 Tamsulosin HCl [Flomax 0.4 mg Cap.sr] 0.4 mg PO QPM 06/27/16 Albuterol Sulfate [Ventolin Hfa 8 gm Mdi (1 Mdi/ER Disp)] 2 puff IH Q4HP PRN inhaler 06/29/16 Bumetanide [Bumex 1 mg Tablet] 1 mg PO BID tablet 06/29/16 Gabapentin [Neurontin 100 mg Capsule] 100 mg PO Q12 capsule 06/29/16 Levofloxacin [Levaquin 750 mg Tablet] 750 mg PO DAILY #5 tablet 06/29/16 Montelukast Sodium [Singulair 10 mg Tablet] 10 mg PO QHS #30 tablet 06/29/16 Omeprazole Magnesium [Prilosec Otc] 20 mg PO DAILY #30 tablet. 06/29/16 Prednisone [Deltasone 20 mg Tablet] 60 mg PO DAILY 30 Days 06/29/16 Tamsulosin HCl [Flomax 0.4 mg Cap.sr] 0.4 mg PO DAILY@1800 cap.sr.24h 06/29/16 Warfarin Sodium [Coumadin 3 mg Tablet] 3 mg PO QHS tablet 06/29/16 History of Present Illness Patient complains of: Shortness of breath History of Present Illness: CHATO BRAXTON SR is a 60 year old male with a past medical history significant for alpha-1 antitrypsin presents emergency department with shortness of breath. Patient reports that beginning last night he began having some chest congestion increased shortness of breath and cough. He's had no relief with 3 breathing treatments, one at home and to here in the emergency department. He does report some chills but no fever. He has some chest discomfort mid epigastrically and some indigestion. He took Tums for his indigestion. Patient denies leg swelling PND or orthopnea. He has been around a sick grandson. He also just finished yesterday and antibiotic from discharge which was azithromycin and also finished his steroid yesterday. Patient reports that he had some facial and arm redness will taking this antibiotic. He had no difficulty breathing while taking the antibiotic no. This was azithromycin. He is referred to hospital service for right lower lobe pneumonia and COPD exacerbation. Hospital Course Hospital Course: Patient was admitted for COPD exacerbation and pneumonia. He was initially treated with IV Rocephin and IV Levaquin. Culture workup was negative. Patient will be discharged home on prednisone taper and oral Levaquin. He has chronic oxygen dependent secondary to advanced COPD from alpha-1 antitrypsin deficiency. Patient has not been able to tolerate inhaled steroid secondary to thrush as an outpatient so we'll taper him down to maintenance dose of oral steroids. Patient has remote history of pulmonary embolism. He is on Coumadin 3 mg daily. INR is 1.77 at discharge. Physical Exam Vital Signs: Temp Pulse Resp BP Pulse Ox 97.3 F 90 18 107/66 94 06/29/16 11:30 06/29/16 11:46 06/29/16 11:46 06/29/16 11:30 06/29/16 11:46 Intake & Output 06/28/16 06/29/16 06/30/16 06:59 06:59 06:59 Intake Total 1511 2418 Output Total 852 Balance 659 2418 Weight 77.8 kg 77.7 kg GENERAL: No acute distress HEENT: Conjunctiva clear, nonicteric, moist mucous membranes, no JVD, midline trachea RESPIRATORY: Clear to auscultation bilaterally, no wheezes, no rhonchi CARDIAC: Regular rate and rhythm, no murmurs/gallops/rubs ABDOMEN: Soft, nondistended, nontender, positive bowel sounds, no rebound, no guarding EXTREMETIES: No edema, cyanosis, clubbing NEUROLOGIC: Alert, oriented to person/place/time, CN's grossly intact, no focal deficits SKIN: No rash, wounds PSYCH: Normal mood, normal affect Results Laboratory Results: 06/29/16 04:59 06/29/16 04:59 06/29/16 06/29/16 06/29/16 04:59 04:59 08:55 WBC 13.3 H RBC 4.27 L Hgb 13.2 L Hct 39.3 MCV 92 MCH 31.0 MCHC 33.7 RDW 18.1 H Plt Count 80 L Seg Neutrophils % Not Reportable Lymphocytes % Not Reportable Monocytes % Not Reportable Eosinophils % Not Reportable Basophils % Not Reportable Absolute Neutrophils Not Reportable Absolute Lymphocytes Not Reportable Absolute Monocytes Not Reportable Absolute Eosinophils Not Reportable Absolute Basophils Not Reportable Sodium 138.0 Potassium 4.2 Chloride 106 Carbon Dioxide 25 Anion Gap 7 BUN 32 H Creatinine 1.15 Est GFR ( Amer) > 60 Est GFR (Non-Af Amer) > 60 Glucose 196 H Calcium 8.9 Stool Occult Blood NEGATIVE 06/27/16 09:42 Sputum Gram Stain - Final 06/27/16 09:42 Sputum Sputum Culture - Final C.albicans/C.dubliniensis Normal Sahra Impressions: Chest X-Ray 06/26/16 16:50 IMPRESSION: COPD. Chronic parenchymal changes noted throughout the lungs, similar to prior studies. Sensitivity for detecting subtle underlying infiltrate in these regions is decreased to the chronic changes within the parenchyma though no significant opacities are seen. Echocardiogram 06/28/2016: Normal EF, normal diastolic function, no significant valvular disease. Qualifiers PATEINT BEING DISCHARGED WITH ANY OF THE FOLLOWING DIAGNOSIS?: No Plan Discharge Plan: Follow-up primary care provider as soon as possible for repeat PT/INR. Time Spent: Less than 30 Minutes
[2016-06-29 17:02] VITALS: BP 92/56
== END 2016-06-29 17:38 | disposition home or self-care (01) | DRG 190 ==
LOC: ER 15:33 → EH 17:16 → 3W 20:17
PROVIDERS: ADMIT Family Medicine; ATTEND Family Medicine
DX: J44.0 Chronic obstructive pulmonary disease with (acute) lower respiratory infection (principal); J18.9 Pneumonia, unspecified organism; J96.21 Acute and chronic respiratory failure with hypoxia; I50.32 Chronic diastolic (congestive) heart failure; R18.8 Other ascites; J44.1 Chronic obstructive pulmonary disease with (acute) exacerbation; E88.01 Alpha-1-antitrypsin deficiency; K21.9 Gastro-esophageal reflux disease without esophagitis; E11.9 Type 2 diabetes mellitus without complications; I27.2 Other secondary pulmonary hypertension; D75.82 Heparin induced thrombocytopenia (HIT); K74.60 Unspecified cirrhosis of liver; Z99.81 Dependence on supplemental oxygen; Z88.0 Allergy status to penicillin; Z88.3 Allergy status to other anti-infective agents; Z88.5 Allergy status to narcotic agent; Z88.8 Allergy status to other drugs, medicaments and biological substances; Z86.73 Personal history of transient ischemic attack (TIA), and cerebral infarction without residual deficits; Z86.711 Personal history of pulmonary embolism
CPT/HCPCS: 36415; 71020; 80048; 80053; 81001; 82272; 82550; 82553; 82962; 83605; 83735; 83880; 84484; 85025; 85610; 85730; 87040; 87070; 87205; 93005; 93010; 93306; 94640; 99285; J0696; J1956; J2920; J2930; J3490; J7030; J7512; J7620

== ENCOUNTER 2016-07-29 12:39 | Observation (INO) | payer OTHER, MEDICARE ==
--- NOTE | 2016-07-29 13:39 | ER Document Report ---
ED Medical Screen (RME) - General Chief Complaint: Chest Pain Stated Complaint: CHEST PAIN, Notes: Patient is here complaining of difficulty breathing and shortness of breath and left-sided chest pain. Patient has a history of COPD on home oxygen with home nebulizers. Last night, his breathing worsened and this morning, he went to his local provider who sent him here. Patient says that he is almost certain to be admitted when he comes to the emergency department. He also started having pains in the left lower anterior chest during the middle of the night. Patient has a history of both COPD and CHF. He's had some slight recent cough productive of small amount of yellow, green sputum. No fevers. PMH: Diabetes handled by diet and sliding scale. Cirrhosis of the liver. CHF. TRAVEL OUTSIDE OF THE [place] IN LAST 30 DAYS: No - Related Data Allergies/Adverse Reactions: Heparin Analogues [Heparin Agents] Allergy (Severe, Verified 07/29/16 12:50) Thrombocytopenia heparinoids [Heparinoids] Allergy (Severe, Verified 07/29/16 12:50) Thrombocytopenia codeine [Codeine] Allergy (Unknown, Verified 07/29/16 12:50) GI upset Penicillins Allergy (Unknown, Verified 07/29/16 12:50) Swelling doxycycline Allergy (Verified 07/29/16 12:50) Past Medical History - Social History Family history: CAD - Past Medical History Cardiac Medical History: Reports: Hx Congestive Heart Failure - Left ventricular diastolic dysfunction, Hx Coronary Artery Disease, Hx Heart Attack, Hx Pulmonary Embolism Denies: Hx Hypercholesterolemia, Hx Hypertension Pulmonary Medical History: Reports: Hx Asthma, Hx Bronchitis, 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 Denies: Hx Hyperthyroidism, Hx Hypothyroidism Renal/ Medical History: Denies: Hx Peritoneal Dialysis GI Medical History: Reports: Hx Cirrhosis - Cougar secondary to alpha-1 antitrypsin deficiency., Hx Gastroesophageal Reflux Disease. Denies: Hx Hepatitis Musculoskeltal Medical History: Denies Hx Arthritis Psychiatric Medical History: Denies: Hx Depression Infectious Medical History: Denies: Hx Hepatitis Past Surgical History: Reports: Other - Left chest tube insertion. - Immunizations Hx Diphtheria, Pertussis, Tetanus Vaccination: Yes Physical Exam - Vital signs Vitals: Temp Pulse Resp BP Pulse Ox 97.6 F 94 22 H 108/64 94 07/29/16 12:50 07/29/16 12:50 07/29/16 12:50 07/29/16 12:50 07/29/16 12:50 Course - Vital Signs Vital signs: Temp Pulse Resp BP Pulse Ox 97.6 F 94 22 H 108/64 94 07/29/16 12:50 07/29/16 12:50 07/29/16 12:50 07/29/16 12:50 07/29/16 12:50
[2016-07-29] MEDS ORDERED: IPRATROPIUM/ALBUTEROL 0.5-2.5 MG/3 ML AMPUL NEB ONE (13:41)
--- NOTE | 2016-07-29 14:05 | ER Document Report ---
ED Cardiac - General Chief Complaint: Chest Pain Stated Complaint: CHEST PAIN, Mode of Arrival: Ambulatory Information source: Patient TRAVEL OUTSIDE OF THE [place] IN LAST 30 DAYS: No - HPI Patient complains to provider of: Chest pain Notes: Patient arrives with complaints of chest pain and shortness of breath. He has a history of CHF, PEs and COPD who started having a constant dull chest pain last evening. States that occasionally the pain is sharp and shoots into his left arm. States since last evening he felt more short of breath. He denies any fever. He has a chronic cough, he denies any change in his cough. He was admitted to the hospital last month for pneumonia and COPD exacerbation which she was discharged home on Levaquin. Patient went to see his primary care physician today and was sent to the emergency department due to his complaints of chest pain. He denies any increase in leg swelling. He denies any fevers. He denies any abdominal pain. No nausea vomiting diarrhea. Nothing makes his pain better or worse. - Related Data Allergies/Adverse Reactions: Heparin Analogues [Heparin Agents] Allergy (Severe, Verified 07/29/16 12:50) Thrombocytopenia heparinoids [Heparinoids] Allergy (Severe, Verified 07/29/16 12:50) Thrombocytopenia codeine [Codeine] Allergy (Unknown, Verified 07/29/16 12:50) GI upset Penicillins Allergy (Unknown, Verified 07/29/16 12:50) Swelling doxycycline Allergy (Verified 07/29/16 12:50) Past Medical History - Social History Smoking Status: Unknown if Ever Smoked Family History: CAD, Hypertension, Other - CHF Patient has suicidal ideation: No Patient has homicidal ideation: No - Past Medical History Cardiac Medical History: Reports: Hx Congestive Heart Failure - Left ventricular diastolic dysfunction, Hx Coronary Artery Disease, Hx Heart Attack, Hx Pulmonary Embolism Denies: Hx Hypercholesterolemia, Hx Hypertension Pulmonary Medical History: Reports: Hx Asthma, Hx Bronchitis, 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 Denies: Hx Hepatitis Musculoskeltal Medical History: Denies Hx Arthritis Psychiatric Medical History: Denies: Hx Depression Infectious Medical History: Denies: Hx Hepatitis Past Surgical History: Reports: Other - Left chest tube insertion. - Immunizations Hx Diphtheria, Pertussis, Tetanus Vaccination: Yes Hx Pneumococcal Vaccination: 04/05/14 Review of Systems - Review of Systems -: Yes All other systems reviewed and negative Physical Exam - Vital signs Vitals: Temp Pulse Resp BP Pulse Ox 97.6 F 94 22 H 108/64 94 07/29/16 12:50 07/29/16 12:50 07/29/16 12:50 07/29/16 12:50 07/29/16 12:50 - General General appearance: Appears well, Alert - HEENT Head: Normocephalic, Atraumatic Eyes: Normal Pupils: PERRL Ears: Normal Mucous membranes: Normal Neck: Normal - Respiratory Respiratory status: No respiratory distress Chest status: Nontender Breath sounds: Normal. No: Rhonchi, Stridor, Wheezing Chest palpation: Normal - Cardiovascular Rhythm: Regular Heart sounds: Normal auscultation Murmur: No Normal capillary refill: Yes - Abdominal Inspection: Normal Tenderness: Nontender - Extremities General upper extremity: Normal inspection, Nontender, Normal color, Normal ROM , Normal temperature General lower extremity: Normal inspection, Nontender, Edema - +1 pitting to the lower extremities no erythema, Normal color, Normal ROM, Normal temperature , Normal weight bearing. No: Tania's sign - Neurological Neuro grossly intact: Yes Cognition: Normal Orientation: AAOx4 Sherrie Coma Scale Eye Opening: Spontaneous [place] Coma Scale Verbal: Oriented Sherrie Coma Scale Motor: Obeys Commands Sherrie Coma Scale Total: 15 Speech: Normal Motor strength normal: LUE, RUE, LLE, RLE Sensory: Normal - Psychological Associated symptoms: Normal affect, Normal mood - Skin Skin Temperature: Warm Skin Moisture: Dry Skin Color: Normal Course - Re-evaluation Re-evalutation: 07/29/16 15:38 Patient is nontoxic-appearing with stable vitals. The patient has a history of CHF and diabetes cirrhosis COPD. EKG shows no acute findings. Initial workup is unremarkable. Chest x-ray shows stable chronic pleural effusions. Patient was sent by his primary care physician to the ER due to chest pain. The patient will be admitted to the hospital for further evaluation and management. I discussed the case with Dr. Billy, he has accepted the admission. - Vital Signs Vital signs: Temp Pulse Resp BP Pulse Ox 97.4 F 94 22 H 108/64 94 07/29/16 12:52 07/29/16 12:50 07/29/16 12:50 07/29/16 12:50 07/29/16 12:50 - Laboratory Result Diagrams: 07/29/16 14:16 07/29/16 14:16 Laboratory results interpreted by me: 07/29/16 07/29/16 07/29/16 14:16 14:16 14:16 WBC 11.1 H RDW 17.4 H Plt Count 110 L Lymphocytes % 12.8 L Absolute Neutrophils 8.5 H PT 21.2 H Calcium 8.1 L Alkaline Phosphatase 197 H Albumin 3.0 L - EKG Interpretation by Me EKG shows normal: Sinus rhythm, Intervals, QRS Complexes, ST-T Waves Rate: Normal Rhythm: NSR When compared to previous EKG there are: No significant change - 06/26/16 Discharge - Discharge Clinical Impression: Shortness of breath Chest pain Qualifiers: Chest pain type: unspecified Qualified Code(s): R07.9 - Chest pain, unspecified Condition: Stable Disposition: ADMITTED OBSERVATION Unit Admitted: Telemetry
[2016-07-29 14:35] LABS: PROTHROMBIN TIME 21.2 SEC (11.4-15.4)
[2016-07-29 14:42] LABS: ABSOLUTE BASOPHILS # (AUTO) 0.1 10^3/uL (0.0-0.2); ABSOLUTE EOSINOPHILS # (AUTO) 0.2 10^3/uL (0.0-0.6); ABSOLUTE LYMPHOCYTES (AUTO) 1.4 10^3/uL (0.5-4.7); ABSOLUTE MONOCYTES (AUTO) 0.9 10^3/uL (0.1-1.4); ABSOLUTE NEUT (AUTO) 8.5 10^3/uL (1.7-8.2); BASOPHILS % (AUTO) 0.5 % (0-2); EOSINOPHILS % (AUTO) 1.5 % (0-6); HEMATOCRIT 42.2 % (37.9-51.0); HEMOGLOBIN 14.4 g/dL (13.5-17.0); LYMPHOCYTES % (AUTO) 12.8 % (13-45); MEAN CORPUSCULAR HEMOGLOBIN 31.2 pg (27.0-33.4); MEAN CORPUSCULAR HGB CONC 34.2 g/dL (32.0-36.0); MEAN CORPUSCULAR VOLUME 91 fl (80-97); RED BLOOD COUNT 4.62 10^6/uL (4.35-5.55); RED CELL DISTRIBUTION WIDTH 17.4 % (11.5-14.0); SEGMENTED NEUTROPHILS % (AUTO) 77.2 % (42-78); WHITE BLOOD COUNT 11.1 10^3/uL (4.0-10.5)
[2016-07-29 14:45] LABS: ALANINE AMINOTRANSFERASE 43 U/L (21-72); ALKALINE PHOSPHATASE 197 U/L (38-126); ANION GAP 8 (5-19); ASPARTATE AMINO TRANSFERASE 39 U/L (17-59); BILIRUBIN,DIRECT 0.2 mg/dL (0.0-0.4); BILIRUBIN,TOTAL 0.7 mg/dL (0.2-1.3); BLOOD UREA NITROGEN 19 mg/dL (7-20); CALCIUM 8.1 mg/dL (8.4-10.2); CARBON DIOXIDE 29 mmol/L (22-30); CHLORIDE 105 mmol/L (98-107); CREATINE KINASE 89 U/L (55-170); CREATININE RESULT 1.22 mg/dL (0.52-1.25); GLUCOSE 91 mg/dL (75-110); SODIUM 141.5 mmol/L (137-145); TOTAL PROTEIN 6.5 g/dL (6.3-8.2)
[2016-07-29 14:58] LABS: CREATINE KINASE MB 1.31 ng/mL (<4.55); TROPONIN I < 0.012 ng/mL
--- NOTE | 2016-07-29 15:33 | EKG REPORT ---
SEVERITY:- BORDERLINE ECG - SINUS RHYTHM BORDERLINE RIGHT AXIS DEVIATION LOW VOLTAGE THROUGHOUT BORDERLINE T ABNORMALITIES, ANT-LAT LEADS : Confirmed by: Olimpia Narayan MD 29-Jul-2016 15:33:06
[2016-07-29] MEDS ORDERED: LEVALBUTEROL HCL NEB 1.25 MG/3 ML AMPUL NEB PRN (17:03)
[2016-07-29] MEDS ORDERED: ACETAMINOPHEN 325 MG TABLET PO PRN (17:03)
[2016-07-29] MEDS ORDERED: ONDANSETRON HCL INJ/PF 4 MG/2 ML SDV IV PRN (17:19)
[2016-07-29] MEDS ORDERED: GLUCAGON,HUMAN RECOMB 1 MG INJ IM PRN (17:28)
[2016-07-29] MEDS ORDERED: DEXTROSE 40% GEL 15 GM TUBE PO PRN ×2 (17:28)
[2016-07-29] MEDS ORDERED: DEXTROSE 50%-WATER 25 GM/50 ML DISP.SYRIN IV PRN ×2 (17:28)
--- NOTE | 2016-07-29 17:51 | PDOC H&P ---
History of Present Illness Admission Date/PCP: 07/29/16 16:44 ALFA GRANGER NP Patient complains of: Shortness of breath and chest tightness History of Present Illness: CHATO BRAXTON SR is a 60 year old male, with history of COPD, liver cirrhosis, alpha-1 antitrypsin deficiency, repeated admissions to the hospital for respiratory problems, in his usual state of health until last night when he started to develop increasing shortness of breath again. All throughout the day prior to admission patient reports that he was in his usual state of health with chronic shortness of breath and on home oxygen, chronic cough intermittently productive sometimes of yellowish phlegm. No sinus congestion or sore throat, no chills or fever, no sinus pressure was noted. No increasing chest congestion was noted. No increasing lower extremity edema. Last night her shortness of breath got worse and the patient was not able to sleep. He had some wheezing. He began to have some chest tightness characterized as discomfort other than pain. The patient went to his primary care physician this morning and was sent to the emergency room directly. Patient was given nebulizer in the emergency room and his symptoms improved. He was then referred for chest pain admission. Past Medical History Cardiac Medical History: Reports: Congestive Heart Failure - Left ventricular diastolic dysfunction, Coronary Artery Disease, Myocardial Infarction, Pulmonary Embolism Denies: Hyperlipidema, Hypertension Pulmonary Medical History: Reports: Asthma, Bronchitis, Chronic Obstructive Pulmonary Disease (COPD) - secondary to alpha-1 antitrypsin deficiency, Pneumonia Denies: Tuberculosis Neurological Medical History: Denies: Seizures Endocrine Medical History: Reports: Diabetes Mellitus Type 2 Denies: Hyperthyroidism, Hypothyroidism GI Medical History: Reports: Cirrhosis - [place] secondary to alpha-1 antitrypsin deficiency., Gastroesophageal Reflux Disease Denies: Hepatitis Musculoskeltal Medical History: Denies: Arthritis Psychiatric Medical History: Denies: Depression Hematology: 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 Social History Information Source: Patient Smoking Status: Never Smoker Frequency of Alcohol Use: None Hx Recreational Drug Use: No Drugs: None Hx Prescription Drug Abuse: No Family History Family History: CAD, Hypertension, Other - CHF Parental Family History Reviewed: Yes Children Family History Reviewed: Yes Sibling(s) Family History Reviewed.: Yes Medication/Allergy Home Medications: Albuterol Sulfate [Ventolin Hfa] 2 puff IH Q4 PRN 07/29/16 Bumetanide [Bumex 1 mg Tablet] 1 mg PO BID 07/29/16 Fluticasone Propionate [Flonase Nasal Ayr 50 Mcg/Ayr 16 gm] 2 sprays NASL DAILYP PRN 07/29/16 Gabapentin [Neurontin 100 mg Capsule] 100 mg PO Q12 07/29/16 Ipratropium/Albuterol Sulfate [Duoneb 3 ml Ampul] 3 ml NEB RTQ4HP PRN 07/29/16 Midodrine HCl 10 mg PO TID 07/29/16 Montelukast Sodium [Singulair 10 mg Tablet] 10 mg PO QHS 07/29/16 Omeprazole 20 mg PO DAILY 07/29/16 Potassium Chloride [Klor-Con 10] 20 meq PO BID 07/29/16 Prednisone [Deltasone 20 mg Tablet] 60 mg PO DAILY 07/29/16 Spironolactone [Aldactone] 50 mg PO DAILY 07/29/16 Tamsulosin HCl [Flomax] 0.4 mg PO QPM 07/29/16 Warfarin Sodium [Coumadin 1 mg Tablet] 1 mg PO SUTUTHSA@1000 07/29/16 Warfarin Sodium [Coumadin 2 mg Tablet] 2 mg PO MOWEFR@1000 07/29/16 Allergies/Adverse Reactions: Heparin Analogues [Heparin Agents] Allergy (Severe, Verified 07/29/16 12:50) Thrombocytopenia heparinoids [Heparinoids] Allergy (Severe, Verified 07/29/16 12:50) Thrombocytopenia codeine [Codeine] Allergy (Unknown, Verified 07/29/16 12:50) GI upset Penicillins Allergy (Unknown, Verified 07/29/16 12:50) Swelling doxycycline Allergy (Verified 07/29/16 12:50) Review of Systems Constitutional: ABSENT: chills, fever(s), headache(s), night sweats, weakness, weight gain, weight loss Eyes: ABSENT: visual disturbances Ears: ABSENT: hearing changes Nose, Mouth, and Throat: ABSENT: mouth pain, sore throat Cardiovascular: PRESENT: chest pain, dyspnea on exertion - Chronic. ABSENT: edema, orthropnea, palpitations Respiratory: PRESENT: cough - Chronic, dyspnea, sputum - Chronic, other - Home oxygen 2 L nasal cannula. ABSENT: hemoptysis Gastrointestinal: ABSENT: abdominal pain, constipation, diarrhea, dysphagia, hematemesis, hematochezia, melena, nausea, vomiting Genitourinary: ABSENT: difficulty urinating, dysuria, hematuria Musculoskeletal: ABSENT: joint swelling Integumentary: ABSENT: rash, wounds Neurological: ABSENT: abnormal gait, abnormal speech, confusion, dizziness, focal weakness, syncope Psychiatric: ABSENT: anxiety, depression, homidical ideation, suicidal ideation Endocrine: ABSENT: cold intolerance, heat intolerance, polydipsia, polyphagia, polyuria Hematologic/Lymphatic: ABSENT: easy bleeding, easy bruising Physical Exam Vital Signs: Temp Pulse Resp BP Pulse Ox 97.4 F 94 13 102/62 99 07/29/16 12:52 07/29/16 12:50 07/29/16 16:00 07/29/16 14:03 07/29/16 16:00 General appearance: PRESENT: no acute distress, cooperative Head exam: PRESENT: atraumatic, normocephalic Eye exam: PRESENT: conjunctiva pink, EOMI, PERRLA. ABSENT: scleral icterus Ear exam: PRESENT: normal external ear exam. ABSENT: drainage Mouth exam: PRESENT: moist, neck supple, tongue midline, other - No thrush Throat exam: ABSENT: post pharyngeal erythema, tonsillar erythema Neck exam: ABSENT: carotid bruit, JVD, lymphadenopathy, thyromegaly Respiratory exam: PRESENT: decreased breath sounds - Bilateral. ABSENT: rales, rhonchi, wheezes - Minimal bilaterally in lower lung medellin Cardiovascular exam: PRESENT: RRR, +S1, +S2. ABSENT: diastolic murmur, gallop, rubs, systolic murmur Pulses: PRESENT: normal dorsalis pedis pul Vascular exam: PRESENT: normal capillary refill GI/Abdominal exam: PRESENT: normal bowel sounds, soft. ABSENT: distended, guarding, mass, organolmegaly, rebound, tenderness Rectal exam: PRESENT: deferred Extremities exam: PRESENT: full ROM. ABSENT: calf tenderness, clubbing, pedal edema Neurological exam: PRESENT: alert, awake, oriented to person, oriented to place , oriented to time, oriented to situation Psychiatric exam: PRESENT: appropriate affect, normal mood. ABSENT: homicidal ideation, suicidal ideation Skin exam: PRESENT: dry, intact, warm. ABSENT: cyanosis, rash Results Impressions: Chest X-Ray 07/29/16 13:40 IMPRESSION: No significant interval change. No acute findings. Obstructive lung disease with chronic appearing changes. 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) Is this a current diagnosis for this admission?: Yes (4) Chronic respiratory failure with hypoxia Is this a current diagnosis for this admission?: Yes (5) Diabetes mellitus type II, controlled Qualifiers: Diabetes mellitus complication status: with unspecified complications Diabetes mellitus custodial insulin use: without intermediate frame tender use Qualified Code(s): E11.8 - Type 2 diabetes mellitus with unspecified complications; Z79.4 - terminal makeup operator (current) use of insulin Is this a current diagnosis for this admission?: Yes (6) Cirrhosis of liver with ascites Qualifiers: Hepatic cirrhosis type: unspecified hepatic cirrhosis Qualified Code (s): K74.60 - Unspecified cirrhosis of liver Is this a current diagnosis for this admission?: Yes (7) Pulmonary embolus, left Is this a current diagnosis for this admission?: Yes (8) Pulmonary hypertension Is this a current diagnosis for this admission?: Yes (9) [id number] deficiency Is this a current diagnosis for this admission?: Yes (10) Diastolic CHF Qualifiers: Congestive heart failure chronicity: chronic Qualified Code(s): I50.32 - Chronic diastolic (congestive) heart failure Is this a current diagnosis for this admission?: Yes (11) Gastroesophageal reflux disease Qualifiers: Esophagitis presence: without esophagitis Qualified Code(s): K21.9 - Gastro-esophageal reflux disease without esophagitis Is this a current diagnosis for this admission?: Yes (12) HTN (hypertension) Qualifiers: Hypertension type: essential hypertension Qualified Code(s): I10 - Essential (primary) hypertension Is this a current diagnosis for this admission?: Yes - Time Time Spent: 50 to 70 Minutes - Inpatient Certification Based on my medical assessment, after consideration of the patient's comorbidities, presenting symptoms, or acuity I expect that the services needed warrant INPATIENT care.: Yes I certify that my determination is in accordance with my understanding of Medicare's requirements for reasonable and necessary INPATIENT services [42 CFR 412.3e].: Yes Medical Necessity: Significant Comorbidiites Make Outpatient Treatment Too Risky , Need Close Monitoring Due to Risk of Patient Decompensation, Need for Nebulizer Therapy and Monitoring of Response, Risk of Complication if Not Cared For in Hospital Post Hospital Care: D/C Mat Maker Documentation - Plan Summary Plan Summary: The patient will be admitted to [facility]. We will obtain cardiac enzymes serially. The patient will be on aspirin. We will continue the warfarin. Monitor PT/ INR. We will continue his supplemental oxygen and begin intravenous steroids and [id number] nebulizer. No need for DVT prophylaxis as the patient is on therapeutic anticoagulation. I will put the patient on sliding scale insulin. We will culture the sputum. I will try him on Advair and see if it will lessen his exacerbations. Further testing depends on the initial evaluation as outlined above.
[2016-07-29] MEDS ORDERED: (PENDING PHARMACY ID) (Midodrine Hcl [Midodrine Hcl] 10 MG) PO SCH (18:00)
[2016-07-29 19:44] LABS: CREATINE KINASE MB 1.38 ng/mL (<4.55)
[2016-07-29 19:51] LABS: TROPONIN I < 0.012 ng/mL
[2016-07-29] MEDS: IPRATROPIUM/ALBUTEROL 0.5-2.5 MG/3 ML AMPUL NEB SCH (21:15)
[2016-07-29] MEDS ORDERED: WARFARIN SODIUM 2 MG TABLET PO SCH (22:00)
[2016-07-29] MEDS ORDERED: FLUTICASONE/SALMETEROL DISKUS 250-50 MCG/DOSE IH SCH (22:00)
[2016-07-29] MEDS: MONTELUKAST SODIUM 10 MG TABLET PO SCH (23:03)
[2016-07-29] MEDS: DOCUSATE SODIUM 100 MG CAPSULE PO SCH (23:03)
[2016-07-29] MEDS: MIDODRINE HCL 5 MG TABLET PO SCH (23:04)
[2016-07-29] MEDS: METHYLPREDNISOLONE INJ 125 MG/2 ML SDV IV SCH (23:06)
[2016-07-29] MEDS: GABAPENTIN 100 MG CAPSULE PO SCH (23:06)
[2016-07-30 01:39] LABS: TROPONIN I < 0.012 ng/mL
[2016-07-30 01:44] LABS: HEMATOCRIT 40.7 % (37.9-51.0); HEMOGLOBIN 13.7 g/dL (13.5-17.0); HGB HCT DIFFERENCE 0.4; MEAN CORPUSCULAR HEMOGLOBIN 30.9 pg (27.0-33.4); MEAN CORPUSCULAR HGB CONC 33.6 g/dL (32.0-36.0); MEAN CORPUSCULAR VOLUME 92 fl (80-97); RED BLOOD COUNT 4.43 10^6/uL (4.35-5.55); RED CELL DISTRIBUTION WIDTH 17.2 % (11.5-14.0); WHITE BLOOD COUNT 8.3 10^3/uL (4.0-10.5)
[2016-07-30] MEDS: IPRATROPIUM/ALBUTEROL 0.5-2.5 MG/3 ML AMPUL NEB SCH ×4 (02:34→19:44)
[2016-07-30] MEDS: METHYLPREDNISOLONE INJ 125 MG/2 ML SDV IV SCH ×4 (03:52→21:51)
[2016-07-30] MEDS: LANSOPRAZOLE 30 MG TAB.RAP.DR PO SCH (06:35)
[2016-07-30 07:43] LABS: HEMATOCRIT 42.5 % (37.9-51.0); HEMOGLOBIN 14.3 g/dL (13.5-17.0); HGB HCT DIFFERENCE 0.4; MEAN CORPUSCULAR HEMOGLOBIN 31.1 pg (27.0-33.4); MEAN CORPUSCULAR HGB CONC 33.8 g/dL (32.0-36.0); MEAN CORPUSCULAR VOLUME 92 fl (80-97); RED BLOOD COUNT 4.61 10^6/uL (4.35-5.55); RED CELL DISTRIBUTION WIDTH 17.2 % (11.5-14.0); WHITE BLOOD COUNT 10.1 10^3/uL (4.0-10.5)
[2016-07-30 07:48] LABS: PROTHROMBIN TIME 20.8 SEC (11.4-15.4)
[2016-07-30 08:01] LABS: BAND NEUTROPHILS % (MANUAL) 1 % (3-5); BASOPHILS % (MANUAL) 0 % (0-2); EOSINOPHILS % (MANUAL) 0 % (0-6); LYMPHOCYTES % (MANUAL) 5 % (13-45); TOTAL CELLS COUNTED 100
[2016-07-30 08:02] LABS: ANISOCYTOSIS SLIGHT
[2016-07-30 08:09] LABS: CREATINE KINASE MB 1.05 ng/mL (<4.55)
[2016-07-30 08:13] LABS: TROPONIN I < 0.012 ng/mL
[2016-07-30] MEDS: INSULIN REG, HUMAN 100 UNIT/ML 3 ML VIAL (PYX) SUBCUT PRN ×4 (08:44→21:50)
[2016-07-30] MEDS ORDERED: WARFARIN SODIUM 2 MG TABLET PO SCH (08:55)
--- NOTE | 2016-07-30 09:00 | PDOC PROGRESS REPORT ---
Subjective Progress Note for:: 07/30/16 Subjective:: Feeling much better. Shortness of breath significantly improved. Chest tightness resolved. No nausea or vomiting, denies any chills or fever. No abdominal pain, diaphoresis, PND orthopnea. Patient reports Advair was discontinued due to side effects are significant thrush/candidiasis Physical Exam Vital Signs: Temp Pulse Resp BP Pulse Ox 97.7 F 90 18 79/46 L 94 07/30/16 04:06 07/30/16 08:09 07/30/16 08:09 07/30/16 04:06 07/30/16 08:09 Intake & Output 07/29/16 07/30/16 07/31/16 06:59 06:59 06:59 Intake Total 91 Output Total 220 Balance -129 Weight 83.3 kg General appearance: PRESENT: no acute distress, cooperative, obese Head exam: PRESENT: normocephalic Eye exam: PRESENT: EOMI Mouth exam: PRESENT: moist, neck supple Neck exam: ABSENT: JVD Respiratory exam: PRESENT: decreased breath sounds. ABSENT: rhonchi, wheezes Cardiovascular exam: PRESENT: RRR. ABSENT: gallop GI/Abdominal exam: PRESENT: soft. ABSENT: distended, tenderness Extremities exam: ABSENT: pedal edema Neurological exam: PRESENT: alert, awake, oriented to person, oriented to place , oriented to time, oriented to situation Skin exam: PRESENT: dry, warm. ABSENT: cyanosis Results Laboratory Results: 07/30/16 07:25 07/30/16 07/30/16 00:58 07:25 WBC 8.3 10.1 RBC 4.43 4.61 Hgb 13.7 14.3 Hct 40.7 42.5 MCV 92 92 MCH 30.9 31.1 MCHC 33.6 33.8 RDW 17.2 H 17.2 H Plt Count 90 L 102 L Seg Neutrophils % Not Reportable Lymphocytes % Not Reportable Monocytes % Not Reportable Eosinophils % Not Reportable Basophils % Not Reportable Absolute Neutrophils Not Reportable Absolute Lymphocytes Not Reportable Absolute Monocytes Not Reportable Absolute Eosinophils Not Reportable Absolute Basophils Not Reportable 07/29/16 07/29/16 07/30/16 19:00 19:00 00:58 Creatine Kinase 82 77 CK-MB (CK-2) 1.38 Troponin I < 0.012 07/30/16 07/30/1617 00:58 07:25 07:25 Creatine Kinase 78 CK-MB (CK-2) 1.00 1.05 Troponin I < 0.012 < 0.012 Impressions: Chest X-Ray 07/29/16 13:40 IMPRESSION: No significant interval change. No acute findings. Obstructive lung disease with chronic appearing changes. 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) Is this a current diagnosis for this admission?: Yes (4) Chronic respiratory failure with hypoxia Is this a current diagnosis for this admission?: Yes (5) Diabetes mellitus type II, controlled Qualifiers: Diabetes mellitus complication status: with unspecified complications Diabetes mellitus halfway insulin use: without halfway use Qualified Code(s): E11.8 - Type 2 diabetes mellitus with unspecified complications; 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.4 - stage manager (current) use of insulin Is this a current diagnosis for this admission?: Yes (6) Cirrhosis of liver with ascites Qualifiers: Hepatic cirrhosis type: unspecified hepatic cirrhosis Qualified Code (s): K74.60 - Unspecified cirrhosis of liver Is this a current diagnosis for this admission?: Yes (7) Pulmonary embolus, left Is this a current diagnosis for this admission?: Yes (8) Pulmonary hypertension Is this a current diagnosis for this admission?: Yes (9) [id number] deficiency Is this a current diagnosis for this admission?: Yes (10) Diastolic CHF Qualifiers: Congestive heart failure chronicity: chronic Qualified Code(s): I50.32 - Chronic diastolic (congestive) heart failure Is this a current diagnosis for this admission?: Yes (11) Gastroesophageal reflux disease Qualifiers: Esophagitis presence: without esophagitis Qualified Code(s): K21.9 - Gastro-esophageal reflux disease without esophagitis Is this a current diagnosis for this admission?: Yes (12) HTN (hypertension) Qualifiers: Hypertension type: essential hypertension Qualified Code(s): I10 - Essential (primary) hypertension Is this a current diagnosis for this admission?: Yes - Time Time Spent with patient: 25-34 minutes - Plan Summary Plan Summary: Out of bed. Physical therapy. Discontinue Advair. Continue steroids and bronchodilators. Patient is afebrile, no increasing WBC, we will hold any antibiotics for now. Patient has been treated with multiple antibiotics in the past. Continue supportive care.
--- NOTE | 2016-07-30 09:05 | Progress Note ---
Provider Note Provider Note: Addendum to assessment and plan on progress note for today: Increase warfarin and recheck PT/INR in the morning.
[2016-07-30] MEDS: POTASSIUM CHLORIDE 10 MEQ TABLET.SA PO SCH ×2 (09:25→17:00)
[2016-07-30] MEDS: GABAPENTIN 100 MG CAPSULE PO SCH ×2 (09:26→21:56)
[2016-07-30] MEDS: SPIRONOLACTONE 25 MG TABLET PO SCH (09:26)
[2016-07-30] MEDS: DOCUSATE SODIUM 100 MG CAPSULE PO SCH ×2 (09:26→21:56)
[2016-07-30] MEDS: MIDODRINE HCL 5 MG TABLET PO SCH ×3 (09:27→17:00)
[2016-07-30] MEDS ORDERED: (PENDING PHARMACY ID) (Spironolactone [Aldactone] 50 MG) PO SCH (10:00)
[2016-07-30] MEDS: BUMETANIDE 1 MG TABLET PO SCH ×2 (10:37→17:00)
[2016-07-30 10:45] LABS: APPEARANCE,URINE CLEAR; BILIRUBIN,URINE NEGATIVE (NEGATIVE); GLUCOSE, URINE >=500 mg/dL (NEGATIVE); KETONES,URINE NEGATIVE (NEGATIVE); LEUKOCYTE ESTERASE,URINE NEGATIVE (NEGATIVE); NITRITE,URINE NEGATIVE (NEGATIVE); PROTEIN,URINE NEGATIVE (NEGATIVE); URINE SPECIFIC GRAVITY 1.021; UROBILINOGEN,URINE NEGATIVE mg/dL (<2.0)
[2016-07-30] MEDS ORDERED: TAMSULOSIN HCL 0.4 MG CAP.SR.24H PO SCH (18:00)
[2016-07-30] MEDS: MONTELUKAST SODIUM 10 MG TABLET PO SCH (21:57)
[2016-07-31] MEDS: IPRATROPIUM/ALBUTEROL 0.5-2.5 MG/3 ML AMPUL NEB SCH ×2 (02:05→08:00)
[2016-07-31] MEDS: METHYLPREDNISOLONE INJ 125 MG/2 ML SDV IV SCH ×2 (03:16→08:40)
[2016-07-31] MEDS: LANSOPRAZOLE 30 MG TAB.RAP.DR PO SCH (05:54)
[2016-07-31] MEDS ORDERED: MIDODRINE HCL 5 MG TABLET PO SCH ×2 (06:00→11:00)
[2016-07-31] MEDS: INSULIN REG, HUMAN 100 UNIT/ML 3 ML VIAL (PYX) SUBCUT PRN ×2 (08:40→12:05)
[2016-07-31 09:32] LABS: PROTHROMBIN TIME 27.5 SEC (11.4-15.4)
[2016-07-31] MEDS: DOCUSATE SODIUM 100 MG CAPSULE PO SCH (10:17)
[2016-07-31] MEDS: SPIRONOLACTONE 25 MG TABLET PO SCH (10:17)
[2016-07-31] MEDS: POTASSIUM CHLORIDE 10 MEQ TABLET.SA PO SCH (10:17)
[2016-07-31] MEDS: GABAPENTIN 100 MG CAPSULE PO SCH (10:17)
[2016-07-31] MEDS: BUMETANIDE 1 MG TABLET PO SCH (10:18)
--- NOTE | 2016-07-31 10:39 | PDOC DISCHARGE SUMMARY ---
General - Admit/Disc Date/PCP Admission Date/Primary Care Provider: 07/29/16 17:03 ALFA GRANGER NP Discharge Date: 07/31/16 - Discharge Diagnosis (1) COPD exacerbation Is this a current diagnosis for this admission?: Yes (2) Chest pain Is this a current diagnosis for this admission?: Yes (3) HIT (heparin-induced thrombocytopenia) Is this a current diagnosis for this admission?: Yes (4) Chronic respiratory failure with hypoxia Is this a current diagnosis for this admission?: Yes (5) Diabetes mellitus type II, controlled Is this a current diagnosis for this admission?: Yes (6) Cirrhosis of liver with ascites Is this a current diagnosis for this admission?: Yes (7) Pulmonary embolus, left Is this a current diagnosis for this admission?: Yes (8) Pulmonary hypertension Is this a current diagnosis for this admission?: Yes (9) Kyjcb-4-gqzplvumtvt deficiency Is this a current diagnosis for this admission?: Yes (10) Diastolic CHF Is this a current diagnosis for this admission?: Yes (11) Gastroesophageal reflux disease Is this a current diagnosis for this admission?: Yes (12) HTN (hypertension) Is this a current diagnosis for this admission?: Yes - Additional Information Resuscitation Status: Full Code Discharge Diet: Cardiac - low-fat low-salt, Diabetic - no concentrated sweets Discharge Activity: Activity As Tolerated, Balance Activity w/Rest, Slowly Increase Activity Home Medications: Albuterol Sulfate [Ventolin Hfa] 2 puff IH Q4 PRN 07/29/16 Bumetanide [Bumex 1 mg Tablet] 1 mg PO BID 07/29/16 Fluticasone Propionate [Flonase Nasal [place] 50 Mcg/[place] 16 gm] 2 sprays NASL DAILYP PRN 07/29/16 Gabapentin [Neurontin 100 mg Capsule] 100 mg PO Q12 07/29/16 Ipratropium/Albuterol Sulfate [Duoneb 3 ml Ampul] 3 ml NEB [id number] PRN 07/29/16 Midodrine HCl 10 mg PO TID 07/29/16 Montelukast Sodium [Singulair 10 mg Tablet] 10 mg PO QHS 07/29/16 Omeprazole 20 mg PO DAILY 07/29/16 Potassium Chloride [Klor-Con 10] 20 meq PO BID 07/29/16 Spironolactone [Aldactone] 50 mg PO DAILY 07/29/16 Tamsulosin HCl [Flomax] 0.4 mg PO QPM 07/29/16 Warfarin Sodium [Coumadin 1 mg Tablet] 1 mg PO SUTUTHSA@1000 07/29/16 Warfarin Sodium [Coumadin 2 mg Tablet] 2 mg PO MOWEFR@1000 07/29/16 Prednisone [Sterapred Ds] 1 pkg PO ASDIR PRN 12 Days 07/31/16 Additional Information: PT/INR check with primary care physician in 5 days. History of Present Illness Patient complains of: Shortness of breath History of Present Illness: CHATO BRAXTON SR is a 60 year old male, with history of COPD, liver cirrhosis, alpha-1 antitrypsin deficiency, repeated admissions to the hospital for respiratory problems, in his usual state of health until last night when he started to develop increasing shortness of breath again. All throughout the day prior to admission patient reports that he was in his usual state of health with chronic shortness of breath and on home oxygen, chronic cough intermittently productive sometimes of yellowish phlegm. No sinus congestion or sore throat, no chills or fever, no sinus pressure was noted. No increasing chest congestion was noted. No increasing lower extremity edema. Last night her shortness of breath got worse and the patient was not able to sleep. He had some wheezing. He began to have some chest tightness characterized as discomfort other than pain. The patient went to his primary care physician this morning and was sent to the emergency room directly. Patient was given nebulizer in the emergency room and his symptoms improved. He was then referred for chest pain admission. Hospital Course Hospital Course: The patient was admitted to telemetry. Patient was continued on supplemental oxygen, patient was started on intravenous steroid, [id number] nebulizers. Patient was offered Advair, apparently he was on it in the past, it was discontinued due to severe candidiasis. He does not want to resume the medication. He did well with the intravenous steroids and nebulizers. After 48 hours of treatment the patient is back to baseline and wants to go home. The rest of the hospital stay is unremarkable. In terms of his INR was subtherapeutic and warfarin was adjusted until INR is between 2 and 3. Patient was advised to recheck INR in 5 days with primary care physician. Physical Exam Vital Signs: Temp Pulse Resp BP Pulse Ox 97.5 F 86 18 98/58 L 96 07/31/16 07:09 07/31/16 07:09 07/31/16 07:09 07/31/16 07:09 07/31/16 07:09 Intake & Output 07/30/16 07/31/16 08/01/16 06:59 06:59 06:59 Intake Total 91 12 Output Total 220 Balance -129 12 Weight 83.3 kg 84.2 kg General appearance: PRESENT: no acute distress, cooperative Head exam: PRESENT: normocephalic Eye exam: PRESENT: EOMI Mouth exam: PRESENT: moist, neck supple Neck exam: ABSENT: JVD Respiratory exam: PRESENT: clear to auscultation porfirio, decreased breath sounds. ABSENT: rhonchi, wheezes Cardiovascular exam: PRESENT: RRR. ABSENT: gallop GI/Abdominal exam: PRESENT: soft. ABSENT: distended, tenderness Neurological exam: PRESENT: alert, awake, oriented to person, oriented to place , oriented to time, oriented to situation Skin exam: PRESENT: dry, warm. ABSENT: cyanosis Results Laboratory Results: 07/30/16 07:25 07/30/16 07/30/16 10:25 21:30 Urine Color YELLOW Urine Appearance CLEAR Urine pH 5.0 Ur Specific [place] 1.021 Urine Protein NEGATIVE Urine Glucose (UA) >=500 H Urine Ketones NEGATIVE Urine Blood SMALL H Urine Nitrite NEGATIVE Ur Leukocyte Esterase NEGATIVE Urine WBC (Auto) 1 Urine RBC (Auto) 2 Stool Occult Blood NEGATIVE 07/29/16 07/29/16 07/30/16 19:00 19:00 00:58 Creatine Kinase 82 77 CK-MB (CK-2) 1.38 Troponin I < 0.012 07/30/16 07/30/16 07/30/16 00:58 07:25 07:25 Creatine Kinase 78 CK-MB (CK-2) 1.00 1.05 Troponin I < 0.012 < 0.012 Impressions: Chest X-Ray 07/29/16 13:40 IMPRESSION: No significant interval change. No acute findings. Obstructive lung disease with chronic appearing changes. Other findings as noted above Qualifiers PATEINT BEING DISCHARGED WITH ANY OF THE FOLLOWING DIAGNOSIS?: No Plan Discharge Plan: Follow-up with primary care physician in 5 days. Time Spent: Less than 30 Minutes
[2016-07-31 12:56] VITALS: BP 100/51
== END 2016-07-31 13:45 | disposition home or self-care (01) ==
LOC: ER 12:39 → EH 16:44 → INTOOBSV 17:03 → OBSVTOIN 17:03 → 5 19:44
DX: J44.1 Chronic obstructive pulmonary disease with (acute) exacerbation (principal); R07.9 Chest pain, unspecified; D75.82 Heparin induced thrombocytopenia (HIT); J96.11 Chronic respiratory failure with hypoxia; E11.9 Type 2 diabetes mellitus without complications; K74.60 Unspecified cirrhosis of liver; R18.8 Other ascites; I26.99 Other pulmonary embolism without acute cor pulmonale; I27.2 Other secondary pulmonary hypertension; E88.01 Alpha-1-antitrypsin deficiency; I50.32 Chronic diastolic (congestive) heart failure; I11.0 Hypertensive heart disease with heart failure; K21.9 Gastro-esophageal reflux disease without esophagitis; Z79.01 Long term (current) use of anticoagulants
CPT/HCPCS: 93005; 99285; 36415 ×3; 82553 ×2; 82962 ×3; 82550 ×2; 85025 ×2; 85027; 85610 ×3; 82272; 80053; 81001; 84484 ×2; 83880; 71020; 93010; 94640 ×3; 97162; G0378 ×4; J3490 ×5; J2930 ×3; J1815 ×2; J7620 ×3; G8978; G8979; G8980

== ENCOUNTER 2016-08-07 03:33 | Emergency (ER) | payer OTHER, MEDICARE ==
[2016-08-07 03:40] VITALS: BP 104/90
[2016-08-07] MEDS ORDERED: HYDROCODONE/ACETAMINOPHEN 5-325 MG TABLET PO ONE (05:15)
[2016-08-07] MEDS ORDERED: ACYCLOVIR 800 MG TABLET PO ONE (05:15)
--- NOTE | 2016-08-07 05:23 | ER Document Report ---
ED Skin Rash/Insect Bite/Abscs - General Chief Complaint: Rash Stated Complaint: LEG PAIN Mode of Arrival: Ambulatory Information source: Patient TRAVEL OUTSIDE OF THE [place] IN LAST 30 DAYS: No - HPI Notes: Patient arrives with complaints of painful rash. He states that 2 days ago he developed some pain in his right buttock and his right scrotum and in the right inner thigh. Yesterday he noticed a blistery rash in this area. Rashes somewhat worse. The patient has had no fever. Denies any nausea, vomiting, diarrhea. No chest pain or shortness of breath. The patient has a history of COPD. He is currently on prednisone for COPD exacerbation. He has no pain with urination. No difficulty urinating. Nothing makes his pain better or worse. He has no other complaints at this time. - Related Data Allergies/Adverse Reactions: Heparin Analogues [Heparin Agents] Allergy (Severe, Verified 08/07/16 05:12) Thrombocytopenia heparinoids [Heparinoids] Allergy (Severe, Verified 08/07/16 05:12) Thrombocytopenia codeine [Codeine] Allergy (Unknown, Verified 08/07/16 05:12) GI upset Penicillins Allergy (Unknown, Verified 08/07/16 05:12) Swelling doxycycline Allergy (Verified 08/07/16 05:12) Past Medical History - Social History Smoking Status: Unknown if Ever Smoked Family History: CAD, Hypertension, Other - CHF Patient has suicidal ideation: No Patient has homicidal ideation: No - Past Medical History Cardiac Medical History: Reports: Hx Congestive Heart Failure - Left ventricular diastolic dysfunction, Hx Coronary Artery Disease, Hx Heart Attack, Hx Pulmonary Embolism Denies: Hx Hypercholesterolemia, Hx Hypertension Pulmonary Medical History: Reports: Hx Asthma, Hx Bronchitis, 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 Denies: Hx Hyperthyroidism, Hx Hypothyroidism Renal/ Medical History: Denies: Hx Peritoneal Dialysis GI Medical History: Reports: Hx Cirrhosis - [place] secondary to alpha-1 antitrypsin deficiency., Hx Gastroesophageal Reflux Disease. Denies: Hx Hepatitis Musculoskeltal Medical History: Denies Hx Arthritis Psychiatric Medical History: Denies: Hx Depression Infectious Medical History: Denies: Hx Hepatitis Past Surgical History: Reports: Other - Left chest tube insertion. - Immunizations Hx Diphtheria, Pertussis, Tetanus Vaccination: Yes Hx Pneumococcal Vaccination: 04/05/14 Review of Systems - Review of Systems -: Yes All other systems reviewed and negative Physical Exam - Vital signs Vitals: Temp Pulse Resp BP Pulse Ox 97.4 F 92 20 104/90 H 93 08/07/16 03:36 08/07/16 03:36 08/07/16 03:36 08/07/16 03:36 08/07/16 03:36 - Notes Notes: GENERAL: alert, cooperative, nontoxic, no distress. HEAD: normocephalic, atraumatic EYES: conjunctiva pink without discharge, no external redness or swelling. EARS: no external swelling, no external redness, no mastoid redness, swelling, tenderness. NOSE: atraumatic, no external swelling. MOUTH/THROAT: mucous membranes moist and pink, posterior pharynx without erythema, swelling, exudate. No trismus or drooling. NECK: soft, supple, full range of motion, no meningismus. CHEST: no distress, lungs clear and equal throughout. No wheezing, rales, rhonchi. CARDIAC: regular rate and rhythm, no murmur, normal capillary refill, normal pulses. No peripheral edema noted. BACK: full range of motion, no CVA tenderness. EXTREMITIES: full range of motion of all extremities. No redness, no swelling. NEURO: alert and oriented 3, no focal deficits, full range of motion of all extremities. PYSCH: appropriate mood, affect. Patient is cooperative. SKIN: pink, warm, dry, red based vesicular rash to the right buttock and right inner thigh down to the knee. No surrounding erythema. No drainage. Course - Re-evaluation Re-evalutation: 08/07/16 05:20 Patient is nontoxic appearing with stable vitals. The patient has herpes zoster to the right leg. He is nontoxic otherwise. Currently on prednisone for COPD exacerbation. The patient will be placed on acyclovir as well as [place]. Follow up with his doctor at the next stable appointment, sooner for increased pain, fever, redness, drainage, any further concerns. The patient's emergency department workup and current diagnosis were explained to the patient and or family. Follow-up instructions were provided. Medications if prescribed were discussed. Instructions for when to return to the emergency department including specific worrisome symptoms were discussed with the patient and/or family. - Vital Signs Vital signs: Temp Pulse Resp BP Pulse Ox 97.4 F 92 20 104/90 H 93 08/07/16 03:36 08/07/16 03:36 08/07/16 03:36 08/07/16 03:36 08/07/16 03:36 Discharge - Discharge Clinical Impression: Herpes zoster Qualifiers: Herpes zoster complications: without complications Qualified Code(s): B02.9 - Zoster without complications Condition: Stable Disposition: HOME, SELF-CARE Instructions: Shingles ([facility]) Additional Instructions: Take medications as prescribed. Follow-up with your doctor if not improving in the next 5-7 days, sooner for increased pain, fever, redness, any further concerns. The medication you were prescribed today may cause drowsiness. Do not drive or operate heavy machinery while taking this medication. Prescriptions: Acyclovir [Acyclovir 400 mg Tablet] 2 tab PO 5XD #70 tablet Hydrocodone/Acetaminophen [[place] 5-325 mg Tablet] 1 tab PO Q4 PRN #15 tablet PRN Reason:
[2016-08-07] MEDS ORDERED: ACYCLOVIR 800 MG TABLET ONE (05:27)
== END 2016-08-07 05:45 | disposition home or self-care (01) ==
LOC: ER 03:33
DX: B02.9 Zoster without complications (principal); R21 Rash and other nonspecific skin eruption
CPT/HCPCS: 99282; J3490

== ENCOUNTER 2016-09-24 17:16 | Inpatient (IN) | payer OTHER, MEDICARE ==
[2016-09-24] MEDS ORDERED: ALBUTEROL SULFATE 0.083% NEB 2.5 MG/3 ML AMPUL NEB ONE (18:00)
--- NOTE | 2016-09-24 18:01 | ER Document Report ---
ED Medical Screen (RME) - General Chief Complaint: Chest Pain Stated Complaint: CHEST PAIN Time Seen by Provider: 09/24/16 17:56 Mode of Arrival: Wheelchair Information source: Patient TRAVEL OUTSIDE OF THE [place] IN LAST 30 DAYS: No - HPI Patient complains to provider of: Cough, chest tightness, difficulty breathing Onset: Yesterday Onset/Duration: Gradual, Persistent Quality of pain: Achy Severity: Mild Associated Symptoms: Body/muscle aches, Cough (productive), Shortness of breath Exacerbated by: Denies Relieved by: Denies Similar symptoms previously: Yes Notes: 09/24/16 18:01 Patient is a 61-year-old male with history of COPD and CHF who is dependent on 2 L of home oxygen, who presents to the emergency room complaining of chest tightness, difficulty breathing, nonproductive cough, symptoms started yesterday , and worsened throughout the day today, he is on 2 L of home oxygen - Related Data Allergies/Adverse Reactions: Heparin Analogues [Heparin Agents] Allergy (Severe, Verified 08/07/16 05:12) Thrombocytopenia heparinoids [Heparinoids] Allergy (Severe, Verified 08/07/16 05:12) Thrombocytopenia codeine [Codeine] Allergy (Unknown, Verified 08/07/16 05:12) GI upset Penicillins Allergy (Unknown, Verified 08/07/16 05:12) Swelling doxycycline Allergy (Verified 08/07/16 05:12) Past Medical History - Social History Family history: CAD - Past Medical History Cardiac Medical History: Reports: Hx Congestive Heart Failure - Left ventricular diastolic dysfunction, Hx Coronary Artery Disease, Hx Heart Attack, Hx Pulmonary Embolism Denies: Hx Hypercholesterolemia, Hx Hypertension Pulmonary Medical History: Reports: Hx Asthma, Hx Bronchitis, 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 Denies: Hx Hyperthyroidism, Hx Hypothyroidism Renal/ Medical History: Denies: Hx Peritoneal Dialysis GI Medical History: Reports: Hx Cirrhosis - [place] secondary to alpha-1 antitrypsin deficiency., Hx Gastroesophageal Reflux Disease. Denies: Hx Hepatitis Musculoskeltal Medical History: Denies Hx Arthritis Psychiatric Medical History: Denies: Hx Depression Infectious Medical History: Denies: Hx Hepatitis Past Surgical History: Reports: Other - Left chest tube insertion. - Immunizations Hx Diphtheria, Pertussis, Tetanus Vaccination: Yes Physical Exam - Vital signs Vitals: Temp Pulse Resp BP Pulse Ox 98.4 F 113 H 21 H 101/58 L 94 09/24/16 17:18 09/24/16 17:18 09/24/16 17:18 09/24/16 17:18 09/24/16 17:18 Course - Vital Signs Vital signs: Temp Pulse Resp BP Pulse Ox 98.4 F 113 H 21 H 101/58 L 94 09/24/16 17:18 09/24/16 17:18 09/24/16 17:18 09/24/16 17:18 09/24/16 17:18
[2016-09-24 18:41] LABS: ABSOLUTE BASOPHILS # (AUTO) 0.1 10^3/uL (0.0-0.2); ABSOLUTE EOSINOPHILS # (AUTO) 0.6 10^3/uL (0.0-0.6); ABSOLUTE LYMPHOCYTES (AUTO) 1.2 10^3/uL (0.5-4.7); ABSOLUTE MONOCYTES (AUTO) 1.2 10^3/uL (0.1-1.4); BASOPHILS % (AUTO) 0.5 % (0-2); HEMATOCRIT 48.3 % (37.9-51.0); HEMOGLOBIN 16.1 g/dL (13.5-17.0); LYMPHOCYTES % (AUTO) 7.7 % (13-45); MEAN CORPUSCULAR HEMOGLOBIN 31.3 pg (27.0-33.4); MEAN CORPUSCULAR HGB CONC 33.3 g/dL (32.0-36.0); MEAN CORPUSCULAR VOLUME 94 fl (80-97); MONOCYTES % (AUTO) 7.8 % (3-13); RED BLOOD COUNT 5.14 10^6/uL (4.35-5.55); RED CELL DISTRIBUTION WIDTH 17.8 % (11.5-14.0)
--- NOTE | 2016-09-24 18:46 | RADIOLOGY REPORT (SQ) ---
EXAM DESCRIPTION: CHEST PA/LAT COMPLETED DATE/TIME: 09/24/2016 6:37 pm REASON FOR STUDY: db COMPARISON: 07/29/2016 NUMBER OF VIEWS: Two view. TECHNIQUE: Frontal and lateral radiographic views of the chest acquired. LIMITATIONS: None. FINDINGS: LUNGS AND PLEURA: Stable chronic lung change without new opacities, masses or pneumothorax . No pleural effusion. Attenuated blood vessels and flattened jaya-diaphragms. MEDIASTINUM AND HILAR STRUCTURES: No masses. No contour abnormalities. HEART AND VASCULAR STRUCTURES: Heart normal in size and contour. No evidence for failure. BONES: No acute findings. HARDWARE: None in the chest. OTHER: No other significant finding. IMPRESSION: COPD. NO ACUTE RADIOGRAPHIC FINDING IN THE CHEST OR SIGNIFICANT CHANGE FROM PRIOR STUDY . TECHNICAL DOCUMENTATION: JOB ID: [id number] [employer]- All Rights Reserved
[2016-09-24 18:56] LABS: ALANINE AMINOTRANSFERASE 48 U/L (21-72); ALBUMIN 3.1 g/dL (3.5-5.0); ALKALINE PHOSPHATASE 178 U/L (38-126); ANION GAP 7 (5-19); ASPARTATE AMINO TRANSFERASE 40 U/L (17-59); BILIRUBIN,DIRECT 0.3 mg/dL (0.0-0.4); BILIRUBIN,TOTAL 1.2 mg/dL (0.2-1.3); BLOOD UREA NITROGEN 27 mg/dL (7-20); CALCIUM 9.1 mg/dL (8.4-10.2); CARBON DIOXIDE 32 mmol/L (22-30); CHLORIDE 97 mmol/L (98-107); CREATINE KINASE 53 U/L (55-170); CREATININE RESULT 1.46 mg/dL (0.52-1.25); GLUCOSE 104 mg/dL (75-110); POTASSIUM 3.8 mmol/L (3.6-5.0); SODIUM 135.6 mmol/L (137-145); TOTAL PROTEIN 6.9 g/dL (6.3-8.2)
[2016-09-24 19:08] LABS: CREATINE KINASE MB 1.02 ng/mL (<4.55)
[2016-09-24 19:09] LABS: TROPONIN I < 0.012 ng/mL
--- NOTE | 2016-09-24 19:59 | ER Document Report ---
ED General - General Chief Complaint: Chest Pain Stated Complaint: CHEST PAIN Time Seen by Provider: 09/24/16 17:56 Mode of Arrival: Wheelchair Information source: Patient Notes: 61-year-old male with extensive medical history presents with complaints of chest pain shortness of breath that has started since yesterday. Patient notes yesterday was much worse today has been present midsternal radiating to the back. Patient denies any fevers or chills nausea vomiting or diarrhea patient does admit to shortness of breath TRAVEL OUTSIDE OF THE [place] IN LAST 30 DAYS: No - HPI Onset: Yesterday Onset/Duration: Sudden, Persistent Quality of pain: Achy Severity: Mild Pain Level: 1 Associated symptoms: Chest pain, Shortness of breath Exacerbated by: Denies Relieved by: Denies Similar symptoms previously: No Recently seen / treated by doctor: Yes - Related Data Allergies/Adverse Reactions: Heparin Analogues [Heparin Agents] Allergy (Severe, Verified 09/24/16 20:12) Thrombocytopenia heparinoids [Heparinoids] Allergy (Severe, Verified 09/24/16 20:12) Thrombocytopenia codeine [Codeine] Allergy (Unknown, Verified 09/24/16 20:12) GI upset Penicillins Allergy (Unknown, Verified 09/24/16 20:12) Swelling doxycycline Allergy (Verified 09/24/16 20:12) Past Medical History - General Information source: Patient - Social History Smoking Status: Former Smoker Cigarette use (# per day): No Chew tobacco use (# tins/day): No Smoking Education Provided: No Frequency of alcohol use: None Drug Abuse: None Family History: CAD, Hypertension, Other - CHF Patient has suicidal ideation: No Patient has homicidal ideation: No - Past Medical History Cardiac Medical History: Reports: Hx Congestive Heart Failure - Left ventricular diastolic dysfunction, Hx Coronary Artery Disease, Hx Heart Attack, Hx Pulmonary Embolism Denies: Hx Hypercholesterolemia, Hx Hypertension Pulmonary Medical History: Reports: Hx Asthma, Hx Bronchitis, 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 Denies: Hx Hyperthyroidism, Hx Hypothyroidism Renal/ Medical History: Denies: Hx Peritoneal Dialysis GI Medical History: Reports: Hx Cirrhosis - [place] secondary to alpha-1 antitrypsin deficiency., Hx Gastroesophageal Reflux Disease. Denies: Hx Hepatitis Musculoskeltal Medical History: Denies Hx Arthritis Psychiatric Medical History: Denies: Hx Depression Infectious Medical History: Denies: Hx Hepatitis Past Surgical History: Reports: Other - Left chest tube insertion. - Immunizations Hx Diphtheria, Pertussis, Tetanus Vaccination: Yes Hx Pneumococcal Vaccination: 04/05/14 Review of Systems - Review of Systems Notes: REVIEW OF SYSTEMS: CONSTITUTIONAL : Denies fever, chills, or sweats. Denies recent illness. EENT: Denies eye, ear, throat, or mouth pain or symptoms. Denies nasal or sinus congestion or discharge. Denies throat, tongue, or mouth swelling or difficulty swallowing. CARDIOVASCULAR: Admits to chest pain RESPIRATORY: Admits to shortness of breath GASTROINTESTINAL: Denies abdominal pain or distention. Denies nausea, vomiting , or diarrhea. Denies blood in vomitus, stools, or per rectum. Denies black, tarry stools. Denies constipation. GENITOURINARY: Denies difficulty urinating, painful urination, burning, frequency, blood in urine, or discharge. MUSCULOSKELETAL: Denies back or neck pain or stiffness. Denies joint pain or swelling. SKIN: Denies rash, lesions or sores. HEMATOLOGIC : Denies easy bruising or bleeding. LYMPHATIC: Denies swollen, enlarged glands. NEUROLOGICAL: Denies confusion or altered mental status. Denies passing out or loss of consciousness. Denies dizziness or lightheadedness. Denies headache. Denies weakness or paralysis or loss of use of either side. Denies problems with gait or speech. Denies sensory loss, numbness, or tingling. Denies seizures. PSYCHIATRIC: Denies anxiety or stress. Denies depression, suicidal ideation, or homicidal ideation. ALL OTHER SYSTEMS REVIEWED AND NEGATIVE. Dictation was performed using [employer] voice recognition software PHYSICAL EXAMINATION: GENERAL: Chronically ill-appearing male HEAD: Atraumatic, normocephalic. EYES: Pupils equal round and reactive to light, extraocular movements intact, sclera anicteric, conjunctiva are normal. ENT: Nares patent, oropharynx clear without exudates. Moist mucous membranes. NECK: Normal range of motion, supple without lymphadenopathy LUNGS: mildy tachypneic Breath sounds clear to auscultation bilaterally and equal. No wheezes rales or rhonchi. HEART: Tachycardic ABDOMEN: Soft, nontender, nondistended abdomen. No guarding, no rebound. No masses appreciated. Musculoskeletal: Normal range of motion, no pitting or edema. No cyanosis. NEUROLOGICAL: Cranial nerves grossly intact. Normal speech, normal gait. Normal sensory, motor exams PSYCH: Normal mood, normal affect. SKIN: Warm, Dry, normal turgor, no rashes or lesions noted. Physical Exam - Vital signs Vitals: Temp Pulse Resp BP Pulse Ox 98.4 F 113 H 21 H 101/58 L 94 09/24/16 17:18 09/24/16 17:18 09/24/16 17:18 09/24/16 17:18 09/24/16 17:18 Course - Re-evaluation Re-evalutation: 09/24/16 19:58 Labwork CTA pending at this time expect admission - Vital Signs Vital signs: Temp Pulse Resp BP Pulse Ox 98.4 F 113 H 22 H 101/58 L 96 09/24/16 17:18 09/24/16 17:18 09/24/16 18:30 09/24/16 17:18 09/24/16 20:15 - Laboratory Result Diagrams: 09/24/16 18:15 09/24/16 18:15 Laboratory results interpreted by me: 09/24/16 09/24/16 18:15 18:15 WBC 15.0 H RDW 17.8 H Plt Count 91 L Seg Neutrophils % 80.0 H Lymphocytes % 7.7 L Absolute Neutrophils 12.0 H Sodium 135.6 L Chloride 97 L Carbon Dioxide 32 H BUN 27 H Creatinine 1.46 H Est GFR ( Amer) 59 L Est GFR (Non-Af Amer) 49 L Alkaline Phosphatase 178 H Creatine Kinase 53 L Albumin 3.1 L Discharge - Discharge Clinical Impression: [id number] deficiency Chest pain Qualifiers: Chest pain type: unspecified Qualified Code(s): R07.9 - Chest pain, unspecified Diabetes mellitus type II, controlled Qualifiers: Diabetes mellitus complication status: with unspecified complications Diabetes mellitus residential insulin use: 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
--- NOTE | 2016-09-24 20:05 | RADIOLOGY REPORT (SQ) ---
EXAM DESCRIPTION: CTA CHEST COMPLETED DATE/TIME: 09/24/2016 7:49 pm REASON FOR STUDY: sob COMPARISON: 08/19/2015 TECHNIQUE: CT scan of the chest performed using helical scanning technique with dynamic intravenous contrast injection. Images reviewed with lung, soft tissue and bone windows. Reconstructed coronal and sagittal MPR images reviewed. Additional 3 dimensional post-processing performed to develop Maximal Intensity Projection images (ID P). All images stored on PACS. All CT scanners at this facility use dose modulation, iterative reconstruction, and/or weight based d osing when appropriate to reduce radiation dose to as low as reasonably achievable (ALARA). [facility]: Dose Right [facility]: CareDose [facility]: Dose Right [facility]: Teradose 4D [facility]: Venus Concept CONTRAST TYPE AND DOSE: 72 mL Isovue 370- low osmolar. RENAL FUNCTION: Creatinine measures 1.46 RADIATION DOSE: 31.49 mGy. LIMITATIONS: None. FINDINGS: LUNGS AND PLEURA: Severe centrilobular emphysema with areas of bronchiectasis and fibrosis in the lower lobes not significantly changed from prior study. No new airspace disease, pleural eff usion, or pneumothorax. AORTA AND GREAT VESSELS: No aneurysm or dissection. HEART: No pericardial effusion. PULMONARY ARTERIES: No emboli visualized in the main pulmonary arteries or the segmental branches. HILAR AND MEDIASTINAL STRUCTURES: No identified masses or abnormal nodes. HARDWARE: None in the chest. UPPER ABDOMEN: Stable appearance of cirrhotic liver and mild ascites. No acute findings. THYROID AND OTHER SOFT TISSUES: Increase gynecomastia. No masses. No adenopathy. BONES: No acute or significant finding. 3D MIPS: Confirm above findings. OTHER: No other significant finding. IMPRESSION: NO PULMONARY EMBOLI. STABLE CHRONIC LUNG CHANGE ABOVE. INCREASE GYNECOMASTIA PRESUMABLY SECONDARY TO UNDERLYING LIVER DISEASE. TECHNICAL DOCUMENTATION: JOB ID: [id number] Quality ID # [id number]: Final reports with documentation of one or more dose reduction techniques (e.g., Au tomated exposure control, adjustment of the mA and/or kV according to patient size, use of iterative reconstruction technique) 2010 [employer]- All Rights Reserved
[2016-09-24 21:17] LABS: PROTHROMBIN TIME 30.8 SEC (11.4-15.4)
[2016-09-24 21:18] LABS: PARTIAL THROMBOPLASTIN TIME 43.3 SEC (23.5-35.8)
[2016-09-25] MEDS ORDERED: GLUCAGON,HUMAN RECOMB 1 MG INJ IM PRN (01:09)
[2016-09-25] MEDS ORDERED: DEXTROSE 40% GEL 15 GM TUBE PO PRN ×2 (01:09)
[2016-09-25] MEDS ORDERED: DEXTROSE 50%-WATER 25 GM/50 ML DISP.SYRIN IV PRN ×2 (01:09)
[2016-09-25] MEDS ORDERED: PHARMACY COMMUNICATION ORDER MC SCH (01:15)
[2016-09-25] MEDS ORDERED: FLUTICASONE NASAL SPRAY 50 MCG/SPRY 120 SPRAY/16 GM NASL PRN (01:15)
[2016-09-25] MEDS ORDERED: ALBUTEROL SULFATE HFA (90 MCG/PUFF) 8 GM MDI (1 MDI/ER DISP) IH PRN ×2 (01:15→08:17)
--- NOTE | 2016-09-25 01:30 | PDOC H&P ---
History of Present Illness Admission Date/PCP: 09/24/16 21:08 PCP DUARTE Serrano Puleligio Worrell, [facility] Patient complains of: cp, sob History of Present Illness: CHATO BRAXTON SR is a 61 year old male with underlying COPD and cirrhosis, both secondary to alpha 1 antitrypsin deficiency, history of pulmonary embolism, chronic diastolic congestive heart failure, and coronary artery disease, status post previous PA, who presents to the emergency room for evaluation of above complaints. Patient has been discussed with emergency room physician who evaluated the patient. Describes approximately a 24-36 hour history of increase in his chronic shortness of breath, along with mild midsternal pressure-like chest discomfort radiating to his back. Nothing in particular makes the chest discomfort worse. Denies nausea vomiting, fever or chills, diarrhea or dysuria. Currently resting quietly, chest pain-free. Has been admitted to our service multiple times in the past for respiratory difficulty due to above issues. Hospitalized on our service through 31 July of this year with final diagnoses including COPD exacerbation and chest pain. Discharge summary has been reviewed. admitted to our service in April of this year for complaints of abdominal pain. History and physical reviewed. Hospitalized briefly in [place] last month for respiratory difficulty. Was seeing a relative graduate from college at the time. Laboratory results are listed in [facility] and are reviewed. X-ray summary results are listed below, with full report(s) reviewed. . EKG reviewed and compared to tracing from July 29 of this year.. Social history/personal habits: . Has children. On disability due to health problems. No use of alcohol tobacco or illicit drugs. Allergies/adverse reactions are listed in [facility] and are reviewed. Home medications initially autopopulated into [facility] may not accurately reflect patient's true medications, dosages, and/or frequencies. pathology technician to reconcile medications. Unfortunately, patient not certain of all medications/dosages/frequencies. REVIEW OF SYSTEMS: Constitutional: No fever or chills. Eyes: Wears glasses ENT: No swallowing problems or complaints. Denies hearing loss. Pulmonary: See history and present illness. Cardiovascular: See history and present illness. Gastrointestinal: No current complaints, including nausea or vomiting. Skin: No current complaints, including rashes. Hematologic: Easy bruising. Neurologic: No current complaints, including numbness or tingling. Musculoskeletal: Joint pain from arthritis. Intermittent bilateral lower extremity leg cramps. Psychiatric: Mild anxiety and depression; denies suicidal or homicidal ideation. Endocrine: No current complaints, including polyuria. Genitourinary: No current complaints, including dysuria. PHYSICAL EXAMINATION: 5 feet 9 inches tall. 80.4 kg. BMI 26.2 kg/m. Blood pressure 116/74. Pulse 108 and regular. 97% saturation on 2 L oxygen per nasal cannula. Respirations are 15 and unlabored. Temperature 98.5. Slightly overweight otherwise well-nourished well-developed though chronically ill-appearing male who appears a bit older than his stated age. Initially asleep, but awakens easily. Alert and cooperative. Appears slightly fatigued. is present at his side; patient approves Skin is warm and dry. No grossly obvious evidence of rash in areas of skin examined. No subcutaneous nodules palpated. ENT: Hearing grossly normal to normal conversation. Tongue midline on protrusion pink and slightly tacky. Eyes: No scleral icterus. Pupils equal and reactive to light at 4 mm. [place] conjunctivae. Neck is supple and nontender to gentle active range of motion and palpation. Midline trachea. No palpable thyroid nodule mass enlargement or tenderness. Lymphatic: No palpable cervical or clavicular nodes. Neck and lymphatic exams limited by patient body habitus. Psychiatric: Reasonable insight into acute and chronic medical issues. Oriented to time location and why here. Lungs: Auscultation reveals clear and equal breath sounds bilaterally. No use of accessory respiratory muscles. Cardiovascular: Heart regular rate and rhythm, without gallop murmur or rub. No carotid or abdominal aortic bruits. No ankle or pedal edema. Faintly palpable dorsalis pedis pulses. Abdomen:soft slightly distended nontender with positive bowel sounds. Unable to adequately evaluate abdomen for masses or organomegaly due to distention. Compression of neither the upper abdomen or sternum reproduces the previously noted chest discomfort. Extremities: Feet are warm and dry. Very mild bilateral calf tenderness to compression, not overly remarkable; patient states this is a chronic condition, without recent change. No palpable venous cord. No grossly obvious visual evidence of calf swelling. Gentle manipulation of lower extremities fails to reveal any obvious evidence of injury or instability to knees hips or ankles. Neurologic: Moves upper extremities grossly normally. Patellar reflexes absent. Absent Babinski. Light touch is intact at feet. Dorsiflexion and plantarflexion of feet 5 / 5 and symmetric. Past Medical History Cardiac Medical History: Reports: Congestive Heart Failure - Left ventricular diastolic dysfunction, Coronary Artery Disease, Myocardial Infarction, Pulmonary Embolism Denies: Hyperlipidema, Hypertension Pulmonary Medical History: Reports: Asthma, Bronchitis, Chronic Obstructive Pulmonary Disease (COPD) - secondary to alpha-1 antitrypsin deficiency, Pneumonia Denies: Sleep Apnea, Tuberculosis EENT Medical History: Reports: Eyes - Glasses Denies: Ears, Throat Neurological Medical History: Denies: Seizures Endocrine Medical History: Reports: Diabetes Mellitus Type 2 Denies: Diabetes Mellitus Type 1, Hyperthyroidism, Hypothyroidism Renal/ Medical History: Reports: Other - Prostatic hypertrophy. 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 Social History Information Source: Patient, Emergency Med Personnel, [facility] Records Lives with: Spouse/Significant other Smoking Status: Unknown if Ever Smoked Frequency of Alcohol Use: None Hx Recreational Drug Use: No Drugs: None Hx Prescription Drug Abuse: No - Advance Directive Resuscitation Status: Full Code Surrogate healthcare decision maker:: Family History Family History: CAD, Hypertension, Other - CHF Parental Family History Reviewed: Yes - Father of a stroke. Mother of a gunshot wound. Children Family History Reviewed: Yes - Healthy Sibling(s) Family History Reviewed.: Yes - Brother with prostate cancer. Medication/Allergy Home Medications: Albuterol Sulfate [Ventolin Hfa] 2 puff IH Q4 PRN 07/29/16 Fluticasone Propionate [Flonase Nasal [place] 50 Mcg/[place] 16 gm] 2 sprays NASL DAILYP PRN 07/29/16 Gabapentin [Neurontin 100 mg Capsule] 300 mg PO Q12 07/29/16 Ipratropium/Albuterol Sulfate [Duoneb 3 ml Ampul] 3 ml NEB RTQ4HP PRN 07/29/16 Montelukast Sodium [Singulair 10 mg Tablet] 10 mg PO QHS 07/29/16 Omeprazole 20 mg PO DAILY 07/29/16 Potassium Chloride [Klor-Con 10] 20 meq PO BID 07/29/16 Spironolactone [Aldactone] 50 mg PO DAILY 07/29/16 Tamsulosin HCl [Flomax] 0.4 mg PO QPM 07/29/16 Warfarin Sodium [Coumadin 1 mg Tablet] 1 mg PO SUTUTHSA@1000 07/29/16 Warfarin Sodium [Coumadin 2 mg Tablet] 2 mg PO MOWEFR@1000 07/29/16 Gabapentin 600 PO BID 09/25/16 Allergies/Adverse Reactions: Heparin Analogues [Heparin Agents] Allergy (Severe, Verified 09/24/16 20:12) Thrombocytopenia heparinoids [Heparinoids] Allergy (Severe, Verified 09/24/16 20:12) Thrombocytopenia codeine [Codeine] Allergy (Unknown, Verified 09/24/16 20:12) GI upset Penicillins Allergy (Unknown, Verified 09/25/16 01:06) Swelling doxycycline Allergy (Verified 09/24/16 20:12) Physical Exam Vital Signs: Temp Pulse Resp BP Pulse Ox 98.5 F 113 H 23 H 106/73 97 09/24/16 22:57 09/24/16 17:18 09/24/16 22:56 09/24/16 22:57 09/24/16 22:56 Results Laboratory Results: 09/25/16 00:20 Troponin I < 0.012 Impressions: Chest X-Ray 09/24/16 17:59 IMPRESSION: COPD. NO ACUTE RADIOGRAPHIC FINDING IN THE CHEST OR SIGNIFICANT CHANGE FROM PRIOR STUDY. Chest/Abdomen CTA 09/24/16 19:03 IMPRESSION: NO PULMONARY EMBOLI. STABLE CHRONIC LUNG CHANGE ABOVE. INCREASE GYNECOMASTIA PRESUMABLY SECONDARY TO UNDERLYING LIVER DISEASE. Assessment & Plan - Diagnosis (1) ARF (acute renal failure) Qualifiers: Acute renal failure type: unspecified Qualified Code(s): N17.9 - Acute kidney failure, unspecified Is this a current diagnosis for this admission?: YesPlan: Mild. Perhaps due to an element of dehydration. With underlying congestive heart failure, we will forego IV fluids at this point in time. Follow-up chemistry. (2) COPD exacerbation Is this a current diagnosis for this admission?: YesPlan: Patient will be placed in observation bed under COPD exacerbation protocol. Incentive spirometry twice a day. Scheduled albuterol neb's. As needed DuoNeb' s. Prednisone. Antibiotics will consist of aztreonam, along with intravenous Zithromax.. I strongly encouraged patient to notify staff should patient feel that breathing is worsening. Patient is a full code. I have strongly encouraged patient not to get out of bed without notifying staff , to avoid a fall with injury. Knee high SCDs for DVT prophylaxis; with patient anticoagulated on Coumadin, we will forego Lovenox or heparin at this point in time. Impression and plans were discussed with patient patient and , both of whom concur Time spent in evaluation and management of patient: 63 minutes. (3) Chest pain Qualifiers: Chest pain type: unspecified Qualified Code(s): R07.9 - Chest pain, unspecified Is this a current diagnosis for this admission?: YesPlan: Patient will be placed in observation bed under chest pain protocol. Patient understands to notify staff should chest pain recur. Serial troponin . Repeat EKG. lipid panel. (4) Plafw-[id number] deficiency Is this a current diagnosis for this admission?: Yes (5) Anticoagulated Is this a current diagnosis for this admission?: YesPlan: Resume home medications as appropriate once these have been determined and reviewed. (6) Diabetes mellitus type 2 in nonobese Is this a current diagnosis for this admission?: YesPlan: Diet-controlled diabetic. Diabetic cardiac diet. Accu-Cheks with appropriate sliding scale coverage. (7) Diastolic CHF Qualifiers: Congestive heart failure chronicity: chronic Qualified Code(s): I50.32 - Chronic diastolic (congestive) heart failure Is this a current diagnosis for this admission?: YesPlan: No evidence of exacerbation of same. Resume home medications as appropriate once these have been determined and reviewed.
[2016-09-25] MEDS ORDERED: PREDNISONE 20 MG TABLET PO ONE (01:45)
[2016-09-25] MEDS ORDERED: AZTREONAM 1 GM in DEXTROSE 5%-WATER 50 ML IV SCH (02:00)
[2016-09-25] MEDS ORDERED: AZITHROMYCIN INJ 500 MG VIAL IV PRN (02:00)
[2016-09-25] MEDS ORDERED: AZITHROMYCIN 500 MG in DEXTROSE 5%-WATER 250 ML IV ONE (02:00)
[2016-09-25] MEDS ORDERED: AZTREONAM INJ 1 GM VIAL IV PRN (02:00)
[2016-09-25] MEDS ORDERED: AZTREONAM INJ 1 GM VIAL ONE (03:03)
[2016-09-25] MEDS ORDERED: AZITHROMYCIN INJ 500 MG VIAL IV ONE (03:03)
[2016-09-25 06:35] LABS: HEMATOCRIT 42.7 % (37.9-51.0); HEMOGLOBIN 14.3 g/dL (13.5-17.0); HGB HCT DIFFERENCE 0.2; MEAN CORPUSCULAR HEMOGLOBIN 31.4 pg (27.0-33.4); MEAN CORPUSCULAR HGB CONC 33.4 g/dL (32.0-36.0); MEAN CORPUSCULAR VOLUME 94 fl (80-97); RED BLOOD COUNT 4.54 10^6/uL (4.35-5.55); RED CELL DISTRIBUTION WIDTH 17.7 % (11.5-14.0); WHITE BLOOD COUNT 12.1 10^3/uL (4.0-10.5)
[2016-09-25 06:40] LABS: PROTHROMBIN TIME 34.6 SEC (11.4-15.4)
[2016-09-25 06:43] LABS: ANION GAP 5 (5-19); BLOOD UREA NITROGEN 26 mg/dL (7-20); CALCIUM 8.1 mg/dL (8.4-10.2); CARBON DIOXIDE 27 mmol/L (22-30); CHLORIDE 100 mmol/L (98-107); CHOLESTEROL 167.08 mg/dL (0-200); CREATININE RESULT 1.15 mg/dL (0.52-1.25); Direct HDL 51 mg/dL (>40); GLUCOSE 310 mg/dL (75-110); POTASSIUM 4.1 mmol/L (3.6-5.0); SODIUM 131.6 mmol/L (137-145); TRIGLYCERIDES 116 mg/dL (<150)
[2016-09-25] MEDS: LANSOPRAZOLE 15 MG TAB.RAP.DR PO SCH (06:44)
[2016-09-25 06:54] LABS: DIRECT LDL 78 mg/dL (<100)
[2016-09-25 07:07] LABS: BAND NEUTROPHILS % (MANUAL) 1 % (3-5); BASOPHILS % (MANUAL) 0 % (0-2); EOSINOPHILS % (MANUAL) 0 % (0-6); LYMPHOCYTES % (MANUAL) 1 % (13-45); TOTAL CELLS COUNTED 100
[2016-09-25 07:08] LABS: TOXIC VACUOLATION PRESENT
[2016-09-25 07:09] LABS: ANISOCYTOSIS 1+
[2016-09-25] MEDS ORDERED: ALBUTEROL SULFATE HFA (90 MCG/PUFF) 200 PUFF/8.5 GM MDI IH PRN (08:40)
[2016-09-25] MEDS: INSULIN LISPRO 100 UNIT/ML 3 ML VIAL SUBCUT PRN ×4 (08:41→22:04)
--- NOTE | 2016-09-25 08:43 | PDOC PROGRESS REPORT ---
Subjective Progress Note for:: 09/25/16 Subjective:: Patient states that he has been having 1 week of substernal chest pain radiating to mid thoracic spine. He has chronic dyspnea from end-stage COPD. He denies any fever or cough. He denies hemoptysis. Physical Exam Vital Signs: Temp Pulse Resp BP Pulse Ox 98.4 F 103 H 19 88/50 L 94 09/25/16 05:31 09/25/16 07:00 09/25/16 05:31 09/25/16 05:31 09/25/16 05:31 Intake & Output 09/24/16 09/25/16 09/26/16 06:59 06:59 06:59 Intake Total 522 Balance 522 GENERAL: No acute distress HEENT: Conjunctiva clear, nonicteric, moist mucous membranes, no JVD, midline trachea RESPIRATORY: Clear to auscultation bilaterally, no wheezes, no rhonchi CARDIAC: Regular rate and rhythm, no murmurs/gallops/rubs ABDOMEN: Soft, nondistended, nontender, positive bowel sounds, no rebound, no guarding EXTREMETIES: No edema, cyanosis, clubbing NEUROLOGIC: Alert, oriented to person/place/time, CN's grossly intact, no focal deficits SKIN: No rash, wounds PSYCH: Normal mood, normal affect Results Laboratory Results: 09/25/16 06:10 09/25/16 06:10 09/25/16 09/25/16 06:10 06:10 WBC 12.1 H RBC 4.54 Hgb 14.3 Hct 42.7 MCV 94 MCH 31.4 MCHC 33.4 RDW 17.7 H Plt Count 65 L Seg Neutrophils % Not Reportable Lymphocytes % Not Reportable Monocytes % Not Reportable Eosinophils % Not Reportable Basophils % Not Reportable Absolute Neutrophils Not Reportable Absolute Lymphocytes Not Reportable Absolute Monocytes Not Reportable Absolute Eosinophils Not Reportable Absolute Basophils Not Reportable Sodium 131.6 L Potassium 4.1 Chloride 100 Carbon Dioxide 27 Anion Gap 5 BUN 26 H Creatinine 1.15 Est GFR ( Amer) > 60 Est GFR (Non-Af Amer) > 60 Glucose 310 H Calcium 8.1 L Triglycerides 116 Cholesterol 167.08 LDL Cholesterol Direct 78 VLDL Cholesterol 23.0 HDL Cholesterol 51 09/25/16 06:10 Troponin I < 0.012 Impressions: Chest X-Ray 09/24/16 17:59 IMPRESSION: COPD. NO ACUTE RADIOGRAPHIC FINDING IN THE CHEST OR SIGNIFICANT CHANGE FROM PRIOR STUDY. Chest/Abdomen CTA 09/24/16 19:03 IMPRESSION: NO PULMONARY EMBOLI. STABLE CHRONIC LUNG CHANGE ABOVE. INCREASE GYNECOMASTIA PRESUMABLY SECONDARY TO UNDERLYING LIVER DISEASE. Assessment & Plan - Diagnosis (1) Acute and chronic respiratory failure Qualifiers: Respiratory failure complication: hypoxia Qualified Code(s): J96.21 - Acute and chronic respiratory failure with hypoxia Is this a current diagnosis for this admission?: YesPlan: Continue oxygen supplementation. Patient is on chronic home oxygen at baseline. (2) Chest pain Qualifiers: Chest pain type: unspecified Qualified Code(s): R07.9 - Chest pain, unspecified Is this a current diagnosis for this admission?: YesPlan: Cardiac enzymes negative for IN. CTA negative for pulmonary embolism/aortic dissection. I would like to consult Dr. Narayan of cardiology for recommendations regarding perfusion study/stress test. Patient would not be able to tolerate treadmill secondary to end-stage lung disease. He states that he has had an adenosine stress test many years ago and this made him feel "very sick". (3) COPD exacerbation Is this a current diagnosis for this admission?: YesPlan: Continue prednisone. Azithromycin. Bronchodilators. Secondary to alpha-1 antitrypsin deficiency. (4) Diabetes mellitus type II, controlled Qualifiers: Diabetes mellitus complication status: with unspecified complications Diabetes mellitus custodial insulin use: without terminal carman use Qualified Code(s): E11.8 - Type 2 diabetes mellitus with unspecified complications; Z79.4 - terminal carman (current) use of insulin Is this a current diagnosis for this admission?: YesPlan: Hyperglycemia related to steroid administration. Sliding scale insulin. (5) Yncif-0-rcpoeobgzcj deficiency Is this a current diagnosis for this admission?: Yes (6) Pulmonary embolus, left Is this a current diagnosis for this admission?: YesPlan: Continue Coumadin. Monitor INR daily while on antibiotic. (7) Cirrhosis Qualifiers: Hepatic cirrhosis type: congenital cirrhosis Qualified Code(s): P78.81 - Congenital cirrhosis (of liver) Is this a current diagnosis for this admission?: YesPlan: Secondary to alpha-1 antitrypsin deficiency. (8) Full code status Is this a current diagnosis for this admission?: Yes - Time Time Spent with patient: 35 or more minutes
[2016-09-25] MEDS: POTASSIUM CHLORIDE 10 MEQ TABLET.SA PO SCH ×2 (09:10→17:40)
[2016-09-25] MEDS: SPIRONOLACTONE 25 MG TABLET PO SCH (09:11)
[2016-09-25] MEDS: DOCUSATE SODIUM 100 MG CAPSULE PO SCH ×2 (09:11→17:40)
[2016-09-25] MEDS ORDERED: DOCUSATE SODIUM 100 MG CAPSULE PO SCH (10:00)
[2016-09-25] MEDS ORDERED: ASPIRIN 81 MG TABLET, ENT COATED PO SCH (10:00)
[2016-09-25] MEDS ORDERED: PREDNISONE 20 MG TABLET PO SCH (10:00)
--- NOTE | 2016-09-25 10:45 | EKG REPORT ---
SEVERITY:- ABNORMAL ECG - SINUS RHYTHM LOW VOLTAGE WITH RIGHT AXIS DEVIATION BORDERLINE R WAVE PROGRESSION, ANTERIOR LEADS BORDERLINE T ABNORMALITIES, ANT-LAT LEADS : Confirmed by: Stepan Benson 25-Sep-2016 10:44:06
--- NOTE | 2016-09-25 10:45 | EKG REPORT ---
SEVERITY:- ABNORMAL ECG - SINUS TACHYCARDIA VENTRICULAR PREMATURE COMPLEX LOW VOLTAGE WITH RIGHT AXIS DEVIATION BORDERLINE R WAVE PROGRESSION, ANTERIOR LEADS : Confirmed by: Stepan Benson 25-Sep-2016 10:44:24
[2016-09-25] MEDS: IPRATROPIUM/ALBUTEROL 0.5-2.5 MG/3 ML AMPUL NEB PRN ×2 (14:07→20:37)
--- NOTE | 2016-09-25 18:24 | CONSULTATION REPORT E ---
Consultation Report NAME: CHATO BRAXTON : 1955 AGE: 61Y DATE: 09/25/2016 ROOM: 305 A TO: EDILIA GARCIA M.D. FROM: SEMAJ HENRIQUEZ M.D. Requesting Physician Note, the patient was seen on 09/25/2016 from 8:45 a.m. to 9:35 a.m. A total of 40 minutes spent. REASON FOR CONSULTATION: Chest pressure and sharp chest pains in a patient with a history of coronary artery disease. 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 He states his baseline shortness of breath increased to significant shortness of breath over the past 3 days. There was no wheezing. He had a cough, productive of very scanty yellowish sputum. The patient had no fever but had chills. He also had chest pressure not related to exertion, which radiated to the back. He also has been having episodes where he would a few seconds of sharp pain radiating from the lower front of the chest to his thoracic spine. He has chronic orthopnea. There are no palpitations or syncope. He also states he has not been taking enough fluids. He also has been having intermittent leg edema, which he states since he came here has improved. There is no hemoptysis. There are no palpitations. There are no TIA or CVA symptoms. PAST MEDICAL HISTORY: Positive for prior history of hypertension but now the blood pressure is low and the patient is not on any antihypertensives. He has a history of diabetes mellitus type 2, noninsulin dependent. He has a history of chronic alpha-1 antitrypsin deficiency and this the cause of the patient's COPD/asthma, and cirrhosis of the liver. He has a past history of myocardial infarction. He states that I did a catheterization on him in 1998, and he was told that there was scarring in the back of the heart with 1 artery that is blocked and he did not require any percutaneous intervention. Mostly likely the patient had a total occluded right coronary artery. He has a history of chronic early diastolic heart failure. Although he has no chronic kidney disease the patient came with acute renal failure secondary to dehydration, which has been corrected. He has no history of TIA or CVA. He has no history of sleep apnea. He has a history of GERD. PAST SURGICAL HISTORY: Positive for left chest tube insertion. SOCIAL HISTORY: The patient does not smoke. There is no history of EtOH abuse. FAMILY HISTORY: Father of complications of heart failure and mother of suicide by gunshot wound. There is no history of coronary artery disease in the family. CODE STATUS: The patient is a full code. His is his surrogate healthcare decision maker. REVIEW OF SYSTEMS: CONSTITUTIONAL: Complains of generalized weakness but no fever, but has chills. HEAD: No history of headaches or head injury. EYES: No history of amblyopia or diplopia. No history of amaurosis fugax. EARS: No history of hearing loss. No history of tinnitus. No history of recurrent ear infections. NOSE: No history of nosebleeds. No history of nasal polyps. No history of rhinorrhea. No history of hay fever. MOUTH: No history of altered taste sensation. The patient states that the last 3 days his mouth felt dry. There are no ulcers in the mouth. There is no bleeding from the gums. THROAT: No odynophagia or dysphagia. No history of recurrent sore throats. SKIN: No history of skin rashes. No history of pruritus. No history of excessive sweating. No history of jaundice. No history of psoriasis or skin cancer. NECK: No history of neck pain. No history of enlarged neck lymph nodes. No history of no goiter. LUNGS: History of COPD secondary to alpha-1 antitrypsin deficiency. The patient's baseline is being short of breath but this increased in the last 3 days without any wheezing. There was cough productive of very scanty yellowish sputum. There is no hemoptysis. He has a past history of pulmonary embolism and is on Coumadin for this. The patient is now being admitted for acute exacerbation of COPD. There is no history of hemoptysis. CARDIAC: There is a past history of hypertension but the patient recently is hypotensive but asymptomatic. He also has a history of being volume depleted. He has a remote history of PR but no recent clear cut anginal symptoms, although he has interval chest pain as mentioned earlier with chest pressure radiating to the back and also sharp chest pain radiating to the back, not lasting for a few minutes and not related to exertion. Although he has shortness of breath with exertion, this chest pressure does not increase with exertion. He has a history of chronic LV diastolic heart failure with a preserved LV systolic function. There is no history of palpitation. He has no history of arrhythmias except for sinus tachycardia in the past. He has a history of orthopnea which is chronic. There is no history of PND. There is no history of syncope. He has a history of leg edema intermittently but none recently. GASTROINTESTINAL: History of GERD present. He has a history of cirrhosis of the liver with ascites secondary to alpha-1 antitrypsin deficiency. There is no history of fatty food intolerance. There is a past history of GI bleed but none recently. There is no history of hematemesis or melena recently. No history of fatty food intolerance. No history of altered bowel movements. He has a history of cirrhosis with ascites. ENDOCRINE: History of diabetes mellitus type 2 noninsulin dependent. No history of thyroid disease. No history of heat or cold intolerance. No history of polydipsia or polyuria. RENAL: The patient has no history of chronic kidney disease but was admitted with acute renal insufficiency which is now improved with the GFR being now normal. There are no symptoms of an enlarged prostate. No history of symptom of UTI. There is no hematuria, pyuria, or dysuria. MUSCULOSKELETAL: Denies any history of arthritis or collagen vascular disease. CENTRAL NERVOUS SYSTEM: No history of TIA or CVA. No history of sleep apnea. No history of seizures, headaches, or migraines. No history of gait imbalance. PSYCHIATRIC: History of depression present, but no history of suicidal ideation. No history of anxiety. No history of homicidal ideation. VASCULAR: No history of calf or buttock claudication. No history of DVT but he has a past history of left pulmonary embolism. HEMATOLOGICAL: He has no history of bleeding diathesis. No history of clotting disorders. ALLERGIES: CODEINE, PENICILLIN, DOXYCYCLINE, HEPARINOIDS AND HEPARIN ANALOGUES. MEDICATIONS: 1. Ventolin 2.5 mg nebulizer treatment x1. 2. ProAir 2 puffs inhalation q.4 hours p.r.n. 3. Ecotrin 81 mg p.o. daily. 4. Azithromycin 500 mg IV piggyback x1 and daily. 5. Aztreonam 1 g IV piggyback x1. 6. Hyperglycemic precautions with glutose 40% gel 15 g p.o. and 30 g p.o. p.r.n. hypoglycemia. 7. Dextrose 50%, 12.5 g IV and 50%, 25 g IV p.r.n. hypoglycemia. 8. Colace 100 mg p.o. daily. 9. Fluticasone propionate 2 sprays nasally daily. 10. Glucagon 1 mg IM p.r.n. hypoglycemia. 11. He is on Accu-cheks a.c., t.i.d., and bedtime with sliding scale regular insulin, that is with insulin lispro. 12. Ipratropium albuterol nebulizer treatments 3 mL q.4 hours p.r.n. 13. Prevacid 15 mg p.o. q.6 a.m. 14. Singulair 10 mg p.o. at bedtime. 15. Potassium 20 mEq p.o. b.i.d. 16. Spironolactone 15 mg p.o. daily. 17. Prednisone 60 mg p.o. daily. 18. Warfarin 1 mg p.o. on Tuesday, Tuesday, , and Tuesday and 2 mg p.o. on Tuesday, Tuesday, and Tuesday. PHYSICAL EXAMINATION: GENERAL: On exam earlier the patient is well built, seems to be chronically ill and does seem to be short of breath at rest with no accessory muscles of respiration used. VITAL SIGNS: He is afebrile with a temperature of 97.3 degrees Fahrenheit. Pulse is 99 beats per minute. Blood pressure is 102/60. Respirations are 18 per minute. Oxygen saturations are 93% on 2 L nasal cannula. HEENT: Head is atraumatic, normocephalic. Eyes: Pupils are equal, round and regular, react to light and accommodation. Extraocular movements are normal. There is no conjunctival pallor. There is no scleral icterus. Ears: Tympanic membranes are intact, external auditory canals are clear. Note there is no deviated nasal septum, there is no inflammation of the nasal mucous membranes. Mouth: Mucous membranes of the mouth are moist, tongue is moist. There are no ulcers, there is no bleeding from the gums. Throat: There is no redness of the oropharynx. There are no exudates. SKIN: There are no skin rashes. There is no petechiae or ecchymosis. There is no skin lesion. NECK: Supple. There is no JVD. There is no goiter. Carotids are equal. There is no bruit. There is no lymphadenopathy. Trachea is central. LUNGS: Diminished air entry, prolonged expiration with scattered rhonchi. There are no wheezing or rales. There are no rales of CHF on exam. There are no dry crackles. HEART: S1, S2 is heard. There is no S3 gallop. There is no S4 gallop. There is a systolic murmur in the left sternal border and the apex. There is no rub. ABDOMEN: Soft, obese, nontender. There is no hepatosplenomegaly. There is ascites present. The abdomen is nontender. Bowel sounds are well heard. EXTREMITIES: Femorals are slightly diminished. There are no femoral bruits. Leg pulses are diminished. There is no pedal edema today. There is no cyanosis or clubbing. There is no DVT or cellulitis. There is no calf tenderness. CENTRAL NERVOUS SYSTEM: The patient is conscious, awake, alert and oriented x3 with no focal deficits. PSYCHIATRIC: The patient's judgment and insight are intact. His affect is normal. DIAGNOSTIC STUDIES: The patient's chest x-ray done on 09/24/2016 is negative. His EKG shows sinus tachycardia, baseline artifact, low voltage with right axis deviation. There are no acute changes on the EKG. The patient's chest CTA shows no pulmonary emboli, stable chronic lung disease, changes within the form of significant central lobular emphysema, increased gynecomastia that is presumably secondary to underlying liver disease. His EKG done today shows sinus rhythm, low voltage with right axis deviation, borderline R-wave progression anterior leads, borderline T abnormalities anterolateral leads. His white count is 12,100; hemoglobin is 14.3; hematocrit is 42.7; platelet count is 65,000. The patient's sodium is 131.6, potassium 4.1, chloride is 100, CO2 is 27, his BUN is 26, creatinine is 1.15, GFR is greater than 60. His glucose is 310. His calcium is 8.1. His cardiac enzymes in the form of CPK-MB and troponin I are negative. The troponin I being negative x3. The patient's triglyceride is 116. His LDL cholesterol is good at 78, his HDL cholesterol is good at 51. His triglycerides are 116. Note that on admission the patient's BUN was 27, creatinine was 1.46, GFR was reduced at 49, but the patient's GFR now is normal. The patient's albumin is 3.1, total protein is 6.9. IMPRESSION: 1. Chest pressure and sharp chest pain not related to exertion, most likely noncardiac. No evidence of myocardial infarction at this admission. 2. Acute exacerbation of chronic obstructive pulmonary disease. 3. Acute renal failure secondary to dehydration, resolved. 4. Coronary artery disease, history of old myocardial infarction. 5. History of chronic left ventricular diastolic heart failure. 6. History of pulmonary embolism.Continue coumadin. 7. History of cirrhosis of the liver with ascites secondary to alpha-1 antitrypsin deficiency. 8. History of COPD secondary to alpha-1 antitrypsin deficiency. 9. Diabetes mellitus type 2, noninsulin dependent. 10. Depression. RECOMMENDATIONS: Note that the patient's blood pressure is borderline, hence, this precludes addition of any cardiac protective medications. Also the patient is very reluctant to undergo a pharmacological stress since he says some years ago, more than 4 years ago, he had a pharmacological stress test which made him very sick, most likely that was the Persantine. I told him that we could do it with adenosine and immediately after the stress dose of Cardiolite has been given we can revert the adenosine with aminophylline. The patient wants to think about that. If the blood pressure permits would recommend trying a small dose of nitrates. Also would consider starting the patient on some Ranexa, but we will make sure that the patient's liver disease does not make it a contraindication. We will check first. Note that the patient's liver function tests are normal with a slightly elevated alk-phos of 178. The patient is a full code, his is the surrogate healthcare decision maker. TIME SPENT: Note 40 minutes spent on this patient including review of the patient's records, including his 06/2016 echo which showed poor endocardial definition and left ventricle is normal in size, there is normal left ventricular wall thickness. The ejection fraction is 60%. Left ventricular systolic function is normal. Doppler measurements suggests normal ventricular diastolic function. Left ventricular wall motion is normal. Probably no RV enlargement. Notable study assess whether he has DVT or PFO. There is no evidence of mitral valve prolapse. There is no mitral valve stenosis, cannot exclude trace mitral regurgitation. There is no aortic valve stenosis. There is no LVOT obstruction, no aortic regurgitation. There is trace amount of tricuspid regurgitation, right ventricular systolic pressure is normal. There is no pericardial effusion. Note that this echo study was poor endocardial definition, poor interrogation. ADDENDUM: Would recommend continue the patient on aspirin, in view of the thrombocytopenia would watch out for bleeding. Will follow with you. Note more than 50% of the time spent on direct patient care, including reviewing the patient's old records and also reviewing the patient's medications. Discussed with the patient and the patient's . Discussed with the hospitalist taking care of the patient and coordination of care done. DICTATING PHYSICIAN: EDILIA GARCIA M.D. [id number] PHY#: [id number] ID: [id number] JOB#: [id number] ACCT: [id number] cc:EDILIA GARCIA M.D. > MTDD
[2016-09-25] MEDS ORDERED: MAG HYDROX/AL HYDROX/SIMETH SUSP 30 ML UDCUP PO PRN (21:13)
[2016-09-25] MEDS ORDERED: GABAPENTIN 300 MG CAPSULE PO ONE (21:30)
[2016-09-25] MEDS: WARFARIN SODIUM 1 MG TABLET PO SCH (21:50)
[2016-09-25] MEDS: MONTELUKAST SODIUM 10 MG TABLET PO SCH (21:50)
[2016-09-25] MEDS ORDERED: TAMSULOSIN HCL 0.4 MG CAP.SR.24H PO ONE (22:00)
[2016-09-25] MEDS ORDERED: AZITHROMYCIN 500 MG in DEXTROSE 5%-WATER 250 ML IV SCH (22:00)
[2016-09-26] MEDS: LANSOPRAZOLE 15 MG TAB.RAP.DR PO SCH (05:11)
[2016-09-26 05:24] LABS: ABSOLUTE MONOCYTES (AUTO) 0.6 10^3/uL (0.1-1.4); ABSOLUTE NEUT (AUTO) 11.9 10^3/uL (1.7-8.2); BASOPHILS % (AUTO) 0.1 % (0-2); EOSINOPHILS % (AUTO) 0.2 % (0-6); HEMATOCRIT 40.1 % (37.9-51.0); HEMOGLOBIN 13.4 g/dL (13.5-17.0); HGB HCT DIFFERENCE 0.1; LYMPHOCYTES % (AUTO) 7.3 % (13-45); MEAN CORPUSCULAR HEMOGLOBIN 31.1 pg (27.0-33.4); MEAN CORPUSCULAR HGB CONC 33.5 g/dL (32.0-36.0); MEAN CORPUSCULAR VOLUME 93 fl (80-97); MONOCYTES % (AUTO) 4.7 % (3-13); RED BLOOD COUNT 4.32 10^6/uL (4.35-5.55); SEGMENTED NEUTROPHILS % (AUTO) 87.7 % (42-78); WHITE BLOOD COUNT 13.6 10^3/uL (4.0-10.5)
[2016-09-26 05:26] LABS: PROTHROMBIN TIME 33.8 SEC (11.4-15.4)
[2016-09-26 05:39] LABS: ANION GAP 6 (5-19); BLOOD UREA NITROGEN 28 mg/dL (7-20); CALCIUM 8.2 mg/dL (8.4-10.2); CARBON DIOXIDE 26 mmol/L (22-30); CHLORIDE 98 mmol/L (98-107); CREATININE RESULT 1.07 mg/dL (0.52-1.25); GLUCOSE 142 mg/dL (75-110); POTASSIUM 4.1 mmol/L (3.6-5.0); SODIUM 130.2 mmol/L (137-145)
[2016-09-26] MEDS ORDERED: PREDNISONE 20 MG TABLET PO SCH (08:00)
--- NOTE | 2016-09-26 08:46 | PDOC PROGRESS REPORT ---
Subjective Progress Note for:: 09/26/16 Subjective:: Patient has no shortness of breath or chest pain today. He is still trying to decide if he wants to have nuclear stress test prior to being discharged. He wants to talk to cardiology more about that today. He denies fevers, chills, headache. Physical Exam Vital Signs: Temp Pulse Resp BP Pulse Ox 97.6 F 109 H 12 96/57 L 96 09/26/16 04:59 09/26/16 07:00 09/26/16 04:59 09/26/16 04:59 09/26/16 04:59 Intake & Output 09/25/16 09/26/16 09/27/16 06:59 06:59 06:59 Intake Total 960 Balance 960 Weight 82 kg GENERAL: No acute distress HEENT: Conjunctiva clear, nonicteric, moist mucous membranes, no JVD, midline trachea RESPIRATORY: Clear to auscultation bilaterally, no wheezes, no rhonchi CARDIAC: Regular rate and rhythm, no murmurs/gallops/rubs ABDOMEN: Soft, nondistended, nontender, positive bowel sounds, no rebound, no guarding EXTREMETIES: No edema, cyanosis, clubbing NEUROLOGIC: Alert, oriented to person/place/time, CN's grossly intact, no focal deficits SKIN: No rash, wounds PSYCH: Normal mood, normal affect Results Laboratory Results: 09/26/16 04:23 09/26/16 04:23 09/26/16 09/26/16 04:23 04:23 WBC 13.6 H RBC 4.32 L Hgb 13.4 L Hct 40.1 MCV 93 MCH 31.1 MCHC 33.5 RDW 17.0 H Plt Count 58 L Seg Neutrophils % 87.7 H Lymphocytes % 7.3 L Monocytes % 4.7 Eosinophils % 0.2 Basophils % 0.1 Absolute Neutrophils 11.9 H Absolute Lymphocytes 1.0 Absolute Monocytes 0.6 Absolute Eosinophils 0.0 Absolute Basophils 0.0 Sodium 130.2 L Potassium 4.1 Chloride 98 Carbon Dioxide 26 Anion Gap 6 BUN 28 H Creatinine 1.07 Est GFR ( Amer) > 60 Est GFR (Non-Af Amer) > 60 Glucose 142 H Calcium 8.2 L Impressions: Chest X-Ray 09/24/16 17:59 IMPRESSION: COPD. NO ACUTE RADIOGRAPHIC FINDING IN THE CHEST OR SIGNIFICANT CHANGE FROM PRIOR STUDY. Chest/Abdomen CTA 09/24/16 19:03 IMPRESSION: NO PULMONARY EMBOLI. STABLE CHRONIC LUNG CHANGE ABOVE. INCREASE GYNECOMASTIA PRESUMABLY SECONDARY TO UNDERLYING LIVER DISEASE. Assessment & Plan - Diagnosis (1) Acute and chronic respiratory failure Qualifiers: Respiratory failure complication: hypoxia Qualified Code(s): J96.21 - Acute and chronic respiratory failure with hypoxia Is this a current diagnosis for this admission?: YesPlan: Continue oxygen supplementation. Patient is on chronic home oxygen at baseline. (2) Chest pain Qualifiers: Chest pain type: unspecified Qualified Code(s): R07.9 - Chest pain, unspecified Is this a current diagnosis for this admission?: YesPlan: Cardiac enzymes negative for PA. CTA negative for pulmonary embolism/aortic dissection. Dr. Narayan of cardiology to discuss possibility of stress test further with patient today. (3) COPD exacerbation Is this a current diagnosis for this admission?: YesPlan: Continue prednisone. Azithromycin. Bronchodilators. Secondary to alpha-1 antitrypsin deficiency. 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 Oglesby of pulmonary medicine in [facility] (6) Pulmonary embolus, left Is this a current diagnosis for this admission?: YesPlan: Continue Coumadin. Monitor INR daily while on antibiotic. (7) Cirrhosis Qualifiers: Hepatic cirrhosis type: congenital cirrhosis Qualified Code(s): P78.81 - Congenital cirrhosis (of liver) Is this a current diagnosis for this admission?: YesPlan: Secondary to alpha-1 antitrypsin deficiency. (8) Thrombocytopenia Is this a current diagnosis for this admission?: YesPlan: Secondary to cirrhosis. Platelet count declining. Discontinue aspirin. Patient at high bleeding risk given thrombocytopenia and anticoagulation with Coumadin. (9) Full code status Is this a current diagnosis for this admission?: Yes - Time Time Spent with patient: 25-34 minutes
[2016-09-26] MEDS ORDERED: (PENDING PHARMACY ID) (Warfarin Sodium 2 MG) PO SCH (10:00)
[2016-09-26] MEDS ORDERED: MIDODRINE HCL 5 MG TABLET PO SCH (10:00)
[2016-09-26] MEDS ORDERED: SPIRONOLACTONE 25 MG TABLET PO SCH (10:00)
[2016-09-26] MEDS: AZITHROMYCIN 250 MG TABLET PO SCH (10:09)
[2016-09-26] MEDS: PREDNISONE 20 MG TABLET PO SCH (10:09)
[2016-09-26] MEDS: POTASSIUM CHLORIDE 10 MEQ TABLET.SA PO SCH ×2 (10:10→17:20)
[2016-09-26] MEDS: DOCUSATE SODIUM 100 MG CAPSULE PO SCH ×2 (10:10→17:20)
[2016-09-26] MEDS: GABAPENTIN 300 MG CAPSULE PO SCH (10:10)
[2016-09-26] MEDS: SPIRONOLACTONE 25 MG TABLET PO SCH (10:57)
[2016-09-26] MEDS: MIDODRINE HCL 5 MG TABLET PO SCH ×2 (11:35→15:46)
[2016-09-26] MEDS: IPRATROPIUM/ALBUTEROL 0.5-2.5 MG/3 ML AMPUL NEB PRN ×2 (12:08→22:05)
[2016-09-26] MEDS: INSULIN LISPRO 100 UNIT/ML 3 ML VIAL SUBCUT PRN ×2 (12:24→17:20)
--- NOTE | 2016-09-26 16:34 | PROGRESS NOTE E ---
Progress Note NAME: CHATO BRAXTON : 1955 AGE: 61Y DATE: 09/26/2016 ROOM: 305 SUBJECTIVE: Note that the patient denies any chest pain or discomfort, feels shortness of breath is much improved. His leg edema has also improved. The patient has orthopnea. He cannot lie down for more than a short period of time. There is no PND. There are no palpitations or arrhythmia seen on the monitor. OBJECTIVE: VITAL SIGNS: On examination, the patient is afebrile with a temperature of 97.4 degrees Fahrenheit. His respirations are 18 per minute. O2 saturations on 1 L are 96%. His pulse is 90 beats per minute. Blood pressure 94/59. GENERAL: The patient is well-built but appears to be chronically ill. HEAD: Atraumatic, normocephalic. EYES: Pupils are equal, round, regular, reactive to light and accommodation. Extraocular movements are normal. There is no conjunctival pallor. There is no scleral icterus. EARS: Tympanic membranes are intact. External auditory canals are clear. NOSE: There is no deviated nasal septum. There is no inflammation of the nasal mucous membranes. MOUTH: Mucous membranes of the mouth are moist. Tongue is moist. There are no ulcers. There is no bleeding from the gums. THROAT: There is no redness of the oropharynx. There is no *------*. SKIN: There is no skin rash. There is no petechial ecchymosis. There are no skin lesions. NECK: Supple. There is no JVD. There is no goiter. Carotids are equal. There is no bruit. There is no lymphadenopathy. Trachea central. LUNGS: Show decreased air entry and prolonged expiration without any rhonchi, asthma or wheezing. There is hyperresonance on percussion. There are no rales of CHF. CARDIOVASCULAR: S1, S2 heard. There no S3 gallop. There is no S4 gallop. There is systolic murmur at the left sternal border and in the apex. There is no rub. ABDOMEN: Soft, obese, nontender. There is no hepatosplenomegaly. There is ascites present. Abdomen is nontender. Bowel sounds are well heard. EXTREMITIES: Femorals are slightly diminished. There are no femoral bruits. Leg pulses are diminished. There is no pedal edema. There is no cyanosis or clubbing. There is no DVT or cellulitis. There is no calf tenderness. COMMAND AND CONTROL SPECIALIST: The patient is conscious, awake, alert, oriented x3 with no focal deficits. PSYCHIATRIC: The patient's judgment and insight are intact. His affect is normal. The patient's intake and output are not accurate. The patient's white count is 13,600. Hemoglobin is 13.4, hematocrit is 40.1. His platelet count is 58,000. This patient's sodium is 130.2, potassium 4.1, chloride is 98, CO2 is 26, the patient's BUN is 28, creatinine is 1.07. GFR is greater than 60. His calcium is 8.2. His ProTime is 33.8. INR is 3.15. IMPRESSION: 1. CHEST PRESSURE AND SHARP CHEST PAIN NOT RELATED TO EXERTION, MOST LIKELY NONCARDIAC. No evidence of myocardial infarction on this admission. Note the patient has multiple risk factors for coronary artery disease. In fact, he has a history of coronary artery disease, history of old myocardial infarction, he is a diabetic, his age, and he has a history of hypertension. 2. ACUTE EXACERBATION OF COPD. At present, seems to have resolved. The patient back to baseline. 3. ACUTE RENAL FAILURE SECONDARY TO DEHYDRATION, RESOLVED. GFR now normal. 4. CORONARY ARTERY DISEASE, HISTORY OF OLD MYOCARDIAL INFARCTION WITH ATYPICAL CHEST PAIN. Negative CO for this admission. 5. HISTORY OF CHRONIC LEFT VENTRICULAR DIASTOLIC HEART FAILURE. 6. HISTORY OF PULMONARY EMBOLISM. The patient is on Coumadin with no recurrence. 7. HISTORY OF CIRRHOSIS OF THE LIVER WITH ASCITES SECONDARY TO ALPHA-1 ANTITRYPSIN DEFICIENCY. 8. CHRONIC OBSTRUCTIVE PULMONARY DISEASE SECONDARY TO ALPHA-1 ANTITRYPSIN DEFICIENCY. 9. HISTORY OF LEFT PULMONARY EMBOLISM. 10. DIABETES MELLITUS TYPE 2, NON-INSULIN DEPENDENT. 11. DEPRESSION. 12. THROMBOCYTOPENIA. No evidence of bleeding. RECOMMENDATION: Note that the patient is being started on midodrine. Continue his current medications. Will schedule the patient for IV Lexiscan Cardiolite Stress Test in the a.m. Note, the patient many years ago, had a pharmacological stress test, and at that time it was Persantine Cardiolite stress test and Persantine has a lot of side effects compared to Lexiscan. Nevertheless, after the Lexiscan dose and the patient's stress does of Cardiolite, will give the patient 75 mg of aminophylline. Note, 30 minutes spent on this patient. More than 50 percent of the time spent on direct patient care and also review of the patient's medications and also coordinating of care and forming a management plan with the other caregiving providers on the case. Discussed the benefits and risks of stress test and also the procedure of the stress test with the patient. DICTATING PHYSICIAN: EDILIA GARCIA M.D. [id number] PHY#: [id number] ID: [id number] JOB#: [id number] ACCT: [id number] cc: >
[2016-09-26] MEDS ORDERED: TAMSULOSIN HCL 0.4 MG CAP.SR.24H PO SCH (18:00)
[2016-09-26] MEDS: WARFARIN SODIUM 1 MG TABLET PO SCH (21:06)
[2016-09-26] MEDS: MONTELUKAST SODIUM 10 MG TABLET PO SCH (21:26)
[2016-09-27 05:35] LABS: PROTHROMBIN TIME 30.7 SEC (11.4-15.4)
[2016-09-27 05:49] LABS: ANION GAP 6 (5-19); BLOOD UREA NITROGEN 31 mg/dL (7-20); CALCIUM 7.5 mg/dL (8.4-10.2); CARBON DIOXIDE 25 mmol/L (22-30); CHLORIDE 102 mmol/L (98-107); CREATININE RESULT 1.08 mg/dL (0.52-1.25); GLUCOSE 98 mg/dL (75-110); SODIUM 133.4 mmol/L (137-145)
[2016-09-27 06:05] LABS: ABSOLUTE BASOPHILS # (AUTO) 0.2 10^3/uL (0.0-0.2); ABSOLUTE EOSINOPHILS # (AUTO) 0.1 10^3/uL (0.0-0.6); ABSOLUTE MONOCYTES (AUTO) 0.6 10^3/uL (0.1-1.4); ABSOLUTE NEUT (AUTO) 6.6 10^3/uL (1.7-8.2); BASOPHILS % (AUTO) 2.3 % (0-2); EOSINOPHILS % (AUTO) 1.7 % (0-6); HEMATOCRIT 38.5 % (37.9-51.0); HGB HCT DIFFERENCE 0.5; LYMPHOCYTES % (AUTO) 12.1 % (13-45); MEAN CORPUSCULAR HGB CONC 33.9 g/dL (32.0-36.0); MEAN CORPUSCULAR VOLUME 94 fl (80-97); MONOCYTES % (AUTO) 6.7 % (3-13); RED BLOOD COUNT 4.07 10^6/uL (4.35-5.55); RED CELL DISTRIBUTION WIDTH 17.7 % (11.5-14.0); SEGMENTED NEUTROPHILS % (AUTO) 77.2 % (42-78); WHITE BLOOD COUNT 8.6 10^3/uL (4.0-10.5)
[2016-09-27] MEDS: MIDODRINE HCL 5 MG TABLET PO SCH ×3 (06:50→15:20)
[2016-09-27] MEDS: LANSOPRAZOLE 15 MG TAB.RAP.DR PO SCH (06:50)
[2016-09-27] MEDS: PREDNISONE 20 MG TABLET PO SCH (10:32)
[2016-09-27] MEDS: DOCUSATE SODIUM 100 MG CAPSULE PO SCH (10:32)
[2016-09-27] MEDS: GABAPENTIN 300 MG CAPSULE PO SCH (10:32)
[2016-09-27] MEDS: AZITHROMYCIN 250 MG TABLET PO SCH (10:33)
[2016-09-27] MEDS: POTASSIUM CHLORIDE 10 MEQ TABLET.SA PO SCH (10:33)
[2016-09-27] MEDS ORDERED: REGADENOSON INJ 0.4 MG/5 ML DISP.SYRIN IV ONE (11:32)
[2016-09-27] MEDS ORDERED: AMINOPHYLLINE INJ/PF 250 MG/10 ML SDV IV ONE (11:32)
[2016-09-27 11:53] VITALS: BP 112/54
[2016-09-27] MEDS: IPRATROPIUM/ALBUTEROL 0.5-2.5 MG/3 ML AMPUL NEB PRN (12:01)
[2016-09-27] MEDS: SPIRONOLACTONE 25 MG TABLET PO SCH (12:42)
--- NOTE | 2016-09-27 14:46 | PDOC DISCHARGE SUMMARY ---
General - Admit/Disc Date/PCP Admission Date/Primary Care Provider: 09/25/16 13:55 Discharge Date: 09/27/16 - Discharge Diagnosis (1) Acute and chronic respiratory failure Is this a current diagnosis for this admission?: Yes (2) Chest pain Is this a current diagnosis for this admission?: Yes (3) COPD exacerbation Is this a current diagnosis for this admission?: Yes (4) Diabetes mellitus type II, controlled Is this a current diagnosis for this admission?: Yes (5) Bwexg-[id number] deficiency Is this a current diagnosis for this admission?: Yes (6) Pulmonary embolus, left Is this a current diagnosis for this admission?: Yes (7) Cirrhosis Is this a current diagnosis for this admission?: Yes (8) Thrombocytopenia Is this a current diagnosis for this admission?: Yes (9) Full code status Is this a current diagnosis for this admission?: Yes - Additional Information Resuscitation Status: Full Code Discharge Diet: Cardiac Discharge Activity: Activity As Tolerated Home Medications: Albuterol Sulfate [Proair HFA Inhalation Aerosol 8.5 gm MDI] 2 puff IH Q4HP PRN 09/25/16 Bumetanide [Bumex 1 mg Tablet] 1 mg PO BID 09/25/16 Gabapentin [Neurontin 300 mg Capsule] 600 mg PO DAILY 09/25/16 Ipratropium/Albuterol Sulfate [Iprat-Albut 0.5-3(2.5) mg/3 ml] 3 ml NEB QID 07/09 Midodrine HCl 10 mg PO TID 09/25/16 Potassium Chloride [Klor-Con 10 Meq Tablet.sa] 10 meq PO BID 09/25/16 Spironolactone [Aldactone] 50 mg PO DAILY 09/25/16 Tamsulosin HCl [Flomax 0.4 mg Cap.sr] 0.4 mg PO DAILY@1800 09/25/16 Azithromycin [Zithromax 250 mg Tablet] 250 mg PO DAILY #3 tablet 09/27/16 Docusate Sodium [Colace 100 mg Capsule] 100 mg PO BID #60 capsule 09/27/16 Prednisone [Deltasone 20 mg Tablet] 10 mg PO DAILY@0900 #2 tablet 09/27/16 Warfarin Sodium [Coumadin 2 mg Tablet] 2 mg PO MoWeFr@2200 tablet 06/05/17 History of Present Illness Patient complains of: Chest pain History of Present Illness: CHATO BRAXTON SR is a 61 year old male with underlying COPD and cirrhosis, both secondary to alpha 1 antitrypsin deficiency, history of pulmonary embolism, chronic diastolic congestive heart failure, and coronary artery disease, status post previous UT, who presents to the emergency room for evaluation of above complaints. Hospital Course Hospital Course: Patient was admitted for chest pain. He was ruled out for acute UT by serial cardiac enzymes. CT angiogram of the chest was negative for pulmonary embolism or dissection. Cardiolite stress test was negative for ischemia. Chest pain was reproducible on examination and likely secondary to costochondritis. Patient was medically stable at time of discharge. Patient has advanced oxygen dependent COPD at baseline secondary to alpha-1 antitrypsin deficiency. He has been placed on steroid taper during his hospitalization and is completing a couple more days of prednisone on discharge. Respiratory status is at baseline. He has home oxygen place already. Physical Exam Vital Signs: Temp Pulse Resp BP Pulse Ox 98.0 F 88 18 112/54 L 95 09/27/16 11:52 09/27/16 11:59 09/27/16 11:59 09/27/16 11:52 09/27/16 11:59 Intake & Output 09/26/16 09/27/16 09/28/16 06:59 06:59 06:59 Intake Total 960 1120 474 Balance 960 1120 474 Weight 82 kg GENERAL: No acute distress HEENT: Conjunctiva clear, nonicteric, moist mucous membranes, no JVD, midline trachea RESPIRATORY: Clear to auscultation bilaterally, no wheezes, no rhonchi CARDIAC: Regular rate and rhythm, no murmurs/gallops/rubs ABDOMEN: Soft, nondistended, nontender, positive bowel sounds, no rebound, no guarding EXTREMETIES: No edema, cyanosis, clubbing NEUROLOGIC: Alert, oriented to person/place/time, CN's grossly intact, no focal deficits SKIN: No rash, wounds PSYCH: Normal mood, normal affect Results Laboratory Results: 09/27/16 04:45 09/27/16 04:45 09/27/16 09/27/16 04:45 04:45 WBC 8.6 RBC 4.07 L Hgb 13.0 L Hct 38.5 MCV 94 MCH 32.0 MCHC 33.9 RDW 17.7 H Plt Count 55 L Seg Neutrophils % 77.2 Lymphocytes % 12.1 L Monocytes % 6.7 Eosinophils % 1.7 Basophils % 2.3 H Absolute Neutrophils 6.6 Absolute Lymphocytes 1.0 Absolute Monocytes 0.6 Absolute Eosinophils 0.1 Absolute Basophils 0.2 Sodium 133.4 L Potassium 4.0 Chloride 102 Carbon Dioxide 25 Anion Gap 6 BUN 31 H Creatinine 1.08 Est GFR ( Amer) > 60 Est GFR (Non-Af Amer) > 60 Glucose 98 Calcium 7.5 L Impressions: Chest X-Ray 09/24/16 17:59 IMPRESSION: COPD. NO ACUTE RADIOGRAPHIC FINDING IN THE CHEST OR SIGNIFICANT CHANGE FROM PRIOR STUDY. Chest/Abdomen CTA 09/24/16 19:03 IMPRESSION: NO PULMONARY EMBOLI. STABLE CHRONIC LUNG CHANGE ABOVE. INCREASE GYNECOMASTIA PRESUMABLY SECONDARY TO UNDERLYING LIVER DISEASE. Qualifiers PATEINT BEING DISCHARGED WITH ANY OF THE FOLLOWING DIAGNOSIS?: No Plan Time Spent: Less than 30 Minutes
--- NOTE | 2016-09-27 16:49 | PROGRESS NOTE E ---
Progress Note NAME: CHATO BRAXTON : 1955 AGE: 61Y DATE: 09/27/2016 ROOM: 305 SUBJECTIVE: The patient denies any chest pain or discomfort. His shortness of breath is much improved and is back to baseline. There is no cough or sputum production. There is no wheezing. There is no pedal edema. His ascites is the same. He has no nausea or vomiting. There are no TIA or CVA symptoms. There is no arrhythmia seen on the monitor. OBJECTIVE: GENERAL: On examination, the patient is well built and well nourished in no acute distress. VITAL SIGNS: He is afebrile with a temperature of 98 degrees Fahrenheit orally, pulse is 97 beats per minute, blood pressure 112/54, respirations are 20 per minute, 02 saturations are 98% on 1 L nasal cannula. HEENT: Head is atraumatic, normocephalic. Eyes: Pupils are equal, round, regular, and reactive to light and accommodation. Extraocular movements are normal. There is no conjunctival pallor. There is no scleral icterus. ENT is negative. NECK: Supple. There is no JVD. Carotids are equal. There is no bruit. There is no goiter. There is no lymphadenopathy. Trachea is central. LUNGS: She diminished air entry, prolonged expiration without any rhonchi, rales, or wheezing. On percussion there is hyperresonance throughout. HEART: S1 and S2 are heard. There is no S3 gallop. There is no S4 gallop. There is a systolic murmur in the left sternal border and apex. There is no rub. ABDOMEN: Soft, nontender. There is no hepatosplenomegaly. There is ascites present. There is no rebound, guarding, or rigidity. Bowel sounds are normal. EXTREMITIES: Femorals are diminished. There are no femoral bruits. Leg pulses are diminished. There is no pedal edema. There is no clubbing or cyanosis. There is no calf tenderness. There is no DVT or cellulitis. CENTRAL NERVOUS SYSTEM: The patient is conscious, awake, alert, oriented x3 with no focal deficits. PSYCHIATRIC: The patient's judgment and insight are intact. His affect is normal. DIAGNOSTICS: The patient's white count is 8600, hemoglobin is 13, hematocrit is 38.5, platelet count is 55,000. The patient's sodium is 133.4, potassium 4.0, chloride 102, CO2 is 25. The patient's BUN is 31, creatinine is 1.08. GFR is greater than 60. His glucose is 98. His calcium is low at 7.5. The patient underwent a Cardiolite stress test which showed no reversible ischemia and no evidence of DE or scar. IMPRESSION: 1. CHEST PAIN RESOLVED. No evidence of DE. No evidence of ischemia or scar by stress testing. 2. HYPOTENSION MOST LIKELY SECONDARY TO HIS CIRRHOSIS. The patient is on midodrine. His blood pressure today was 112/54 on midodrine, hence, hypotension has resolved. 3. ACUTE EXACERBATION OF COPD. At present back to baseline. 4. ACUTE RENAL FAILURE SECONDARY TO DEHYDRATION RESOLVED. 5. CORONARY ARTERY DISEASE, HISTORY OF OLD MYOCARDIAL INFARCTION WITH ATYPICAL CHEST PAIN. Negative DE for this admission and negative Cardiolite stress test for ischemia or scar. 6. HISTORY OF CHRONIC LEFT VENTRICULAR DIASTOLIC HEART FAILURE. At present compensated. 7. HISTORY OF PULMONARY EMBOLISM. 8. HISTORY OF CIRRHOSIS OF THE LIVER WITH ASCITES SECONDARY TO ALPHA-1 ANTITRYPSIN DEFICIENCY. 9. CHRONIC OBSTRUCTIVE PULMONARY DISEASE SECONDARY TO ALPHA-1 ANTITRYPSIN DEFICIENCY. 10. HISTORY OF LEFT PULMONARY EMBOLISM. Patient on Coumadin with no recurrence. 11. DIABETES MELLITUS TYPE 2, NON-INSULIN DEPENDENT. 12. DEPRESSION. 13. THROMBOCYTOPENIA. No evidence of bleeding. RECOMMENDATION: Continue midodrine. Continue all his current medications. The stress test was discussed with the patient and the patient's and with the hospitalist. Note, 30 minutes spent on the patient, more than 50% of the time spent on direct patient care and also reviewing the medications and also discussions with the other caregiving providers and formulating management plan. The patient can go home and follow up with me. We will sign off. The stress test has been discussed with the patient in detail. This case was of high complexity medical decision making in view of the multiple comorbidities and the patient's chest pain. Now that the patient's stress test is negative, it is clear that the patient's chest pain is noncardiac. We will follow up with the patient. The patient was given my cell phone number to call me if he has any problems. We will sign of the case. DICTATING PHYSICIAN: EDILIA GARCIA M.D. [id number] RICHARD#: [id number] ID: [id number] JOB#: [id number] ACCT: [id number] cc: >
--- NOTE | 2016-09-27 19:13 | DRAGON STRESS TEST REPORT ---
Intravenous Lexiscan Cardiolite stress test using single photon emmision computerized tomography. Date of procedure: 09/27/2016. Ordering Provider: Dr. Alex Nixon. Patient' s status: Inpatient Indication: Chest pain. Coronary risk factors: Age, diabetes mellitus, Dyslipidemia, and family history of coronary artery disease. Resting EKG: Sinus Rhythm. Low voltage throughout Stress EKG:[ No changes of ischemia. The patient had no chest pain or discomfort, and there is no arrhythmias seen. Soon after the stress dose of Lexiscan was given and after the Cardiolite was injected the patient was given 50 mg of Aminophyllin intravenously. Hence the patient did not develop any increased shortness of breath. Reason for termination: Protocol. Conclusions: Normal EKG and hemodynamic response to IV Lexiscan. . Nuclear data: At rest the patient was given 12.33 millicuries of technetium 99m sestamibi injected intravenously. As per protocol rest non gated SPECT images were obtained. Subsequently the patient was given intravenous Lexiscan at a dose of 0.4 mg in 5 mL intravenously, followed by flush with normal saline. Subsequently the stress dose of 37.7 millicuries of technetium 99m sestamibi was injected intravenously. As per protocol stress gated images were obtained. Nuclear interpretation: Review of images showed that all segments of the myocardium had normal perfusion at rest, and normal perfusion post stress with IV Lexiscan. All segments of the myocardium had normal motion, contraction, and thickening by gated study. T. I D. ratio was normal at 0.86. Computer read rest, and stress left ventricular ejection fraction were 69 %, and 64 %, respectively. Conclusion: 1. There is no scintigraphic evidence of Lexiscan induced myocardial ischemia. 2. There is no scintigraphic evidence of myocardial infarction/scar. Recommendations: Aggressive risk factor modification, and treating the underlying co- morbidities. MTDD
[2016-09-27] MEDS ORDERED: WARFARIN SODIUM 2 MG TABLET PO SCH (22:00)
== END 2016-09-27 15:57 | disposition home or self-care (01) | DRG 190 ==
LOC: ER 17:16 → UNDOADMOB 21:08 → EH 21:08 → INTOOBSV 21:08 → EH 09-25 00:51 → 3N 09-25 00:51 → OBSVTOIN 09-25 13:55
PROVIDERS: ADMIT Family Medicine; ATTEND Family Medicine
PROC: 3E0F73Z Introduction of Anti-inflammatory into Respiratory Tract, Via Natural or Artificial Opening (ICD-10-PCS; principal; 2016-09-25)
DX: J44.1 Chronic obstructive pulmonary disease with (acute) exacerbation (principal); J96.21 Acute and chronic respiratory failure with hypoxia; N17.9 Acute kidney failure, unspecified; I50.32 Chronic diastolic (congestive) heart failure; I11.0 Hypertensive heart disease with heart failure; E88.01 Alpha-1-antitrypsin deficiency; E11.65 Type 2 diabetes mellitus with hyperglycemia; K74.60 Unspecified cirrhosis of liver; K21.9 Gastro-esophageal reflux disease without esophagitis; F32.9 Major depressive disorder, single episode, unspecified; E86.0 Dehydration; M94.0 Chondrocostal junction syndrome [Tietze]; M19.90 Unspecified osteoarthritis, unspecified site; D69.59 Other secondary thrombocytopenia; I25.10 Atherosclerotic heart disease of native coronary artery without angina pectoris; T45.515A Adverse effect of anticoagulants, initial encounter; I25.2 Old myocardial infarction; Z86.711 Personal history of pulmonary embolism; Z88.6 Allergy status to analgesic agent; Z79.4 Long term (current) use of insulin; Z79.52 Long term (current) use of systemic steroids; Z88.0 Allergy status to penicillin; Z86.14 Personal history of Methicillin resistant Staphylococcus aureus infection; Z79.02 Long term (current) use of antithrombotics/antiplatelets; Z99.81 Dependence on supplemental oxygen
CPT/HCPCS: 36415; 71020; 71275; 78452; 80048; 80053; 80061; 82550; 82553; 82962; 83880; 84484; 85025; 85610; 85730; 93005; 93010; 93017; 94640; 99285; A9500; G0378; J0280; J0456; J1815; J2785; J3490; J7060; J7512; J7620; Q9969

== ENCOUNTER 2016-10-10 02:53 | Inpatient (IN) | payer OTHER, MEDICARE ==
[2016-10-10] MEDS ORDERED: IPRATROPIUM/ALBUTEROL 0.5-2.5 MG/3 ML AMPUL NEB ONE (04:09)
[2016-10-10] MEDS ORDERED: METHYLPREDNISOLONE INJ 125 MG/2 ML SDV IV ONE (04:09)
[2016-10-10] MEDS ORDERED: ONDANSETRON HCL INJ/PF 4 MG/2 ML SDV IV ONE (04:12)
--- NOTE | 2016-10-10 04:15 | ER Document Report ---
ED Respiratory Problem - General Chief Complaint: Breathing Difficulty Stated Complaint: DIFFICULTY BREATHING Notes: Patient is a 61-year-old male that comes emergency department for chief complaint of shortness of breath, he states that he has had a cough that has become productive and he has had worsening shortness of breath today compared to previously. He has had nebulizer treatments before arrival, states he is improved but not up to his baseline. He denies chest pain, abdominal pain, vomiting. He reports some nausea. Normal bowel movements. He reports compliant with his medications. Patient denies fever. Past medical history includes alpha-1 antitrypsin deficiency with COPD and cirrhosis secondarily, PE, CHF, CAD. On coumadin. TRAVEL OUTSIDE OF THE [place] IN LAST 30 DAYS: No - Related Data Allergies/Adverse Reactions: Heparin Analogues [Heparin Agents] Allergy (Severe, Verified 09/24/16 20:12) Thrombocytopenia heparinoids [Heparinoids] Allergy (Severe, Verified 09/24/16 20:12) Thrombocytopenia codeine [Codeine] Allergy (Unknown, Verified 09/24/16 20:12) GI upset Penicillins Allergy (Unknown, Verified 09/25/16 01:06) Swelling doxycycline Allergy (Verified 09/24/16 20:12) Past Medical History - General Information source: Patient - Social History Smoking Status: Former Smoker Frequency of alcohol use: None Drug Abuse: None Lives with: Family Family History: CAD, Hypertension, Other - CHF Patient has suicidal ideation: No Patient has homicidal ideation: No - Past Medical History Cardiac Medical History: Reports: Hx Congestive Heart Failure - Left ventricular diastolic dysfunction, Hx Coronary Artery Disease, Hx Heart Attack, Hx Pulmonary Embolism Denies: Hx Hypercholesterolemia, Hx Hypertension Pulmonary Medical History: Reports: Hx Asthma, Hx Bronchitis, Hx 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 Denies: Hx Diabetes Mellitus Type 1, Hx Hyperthyroidism, Hx Hypothyroidism Renal/ Medical History: Denies: Hx Peritoneal Dialysis GI Medical History: Reports: Hx Cirrhosis - [place] secondary to alpha-1 antitrypsin deficiency., Hx Gastroesophageal Reflux Disease. Denies: Hx Hepatitis Musculoskeltal Medical History: Denies Hx Arthritis Psychiatric Medical History: Reports: Hx Depression - Denies suicidal or homicidal ideation. Infectious Medical History: Reports: Hx C-Diff, Hx MRSA. Denies: Hx Hepatitis Past Surgical History: Reports: Other - Left chest tube insertion. - Immunizations Hx Diphtheria, Pertussis, Tetanus Vaccination: Yes Hx Pneumococcal Vaccination: 04/05/14 Review of Systems - Review of Systems Constitutional: No symptoms reported EENT: No symptoms reported Cardiovascular: See HPI Respiratory: See HPI Gastrointestinal: No symptoms reported Genitourinary: No symptoms reported Male Genitourinary: No symptoms reported Musculoskeletal: No symptoms reported Skin: No symptoms reported Hematologic/Lymphatic: No symptoms reported Neurological/Psychological: No symptoms reported Physical Exam - Vital signs Vitals: Temp Pulse Resp BP Pulse Ox 98.3 F 114 H 20 94/59 L 93 10/10/16 02:59 10/10/16 02:59 10/10/16 02:59 10/10/16 02:59 10/10/16 02:59 Interpretation: Normal - General General appearance: Appears well In distress: None - HEENT Head: Normocephalic, Atraumatic Eyes: Normal Pupils: PERRL - Respiratory Respiratory status: Other - patient speaking in full sentences, intermittent labored breathing episodes Chest status: Nontender Breath sounds: Decreased air movement - very decreased bilaterally, scant expiratory wheezes Chest palpation: Normal - Cardiovascular Rhythm: Regular, Tachycardia - borderline Heart sounds: Normal auscultation, S1 appreciated, S2 appreciated Murmur: No - Abdominal Inspection: Normal Distension: No distension Bowel sounds: Normal Tenderness: Tender - tender umbilical hernia, otherwise unremarkable abdomen Organomegaly: No organomegaly - Back Back: Normal, Nontender - Extremities General upper extremity: Nontender, Normal ROM, Normal strength. No: Normal inspection - many bruises over arms General lower extremity: Nontender, Edema - 1+ bilaterally, Normal ROM, Normal strength - Neurological Neuro grossly intact: Yes Cognition: Normal Orientation: AAOx4 [place] Coma Scale Eye Opening: Spontaneous [place] Coma Scale Verbal: Oriented [place] Coma Scale Motor: Obeys Commands [place] Coma Scale Total: 15 Speech: Normal Motor strength normal: LUE, RUE, LLE, RLE Sensory: Normal - Psychological Associated symptoms: Normal affect, Normal mood - Skin Skin Temperature: Warm Skin Moisture: Dry Skin Color: Normal Course - Re-evaluation Re-evalutation: Patient initially tachycardic and borderline hypotensive. Minimal wheezing, decreased breath sounds, slightly tachypneic. After the third DuoNeb treatment and Solu-Medrol he significantly improved. Patient does not appear to be in any distress, he is relaxed. Still mildly tachycardic. CBC, chemistry, BNP, troponin, and venous blood gas with no obvious overt acute abnormalities. Chest x-ray shows chronic changes but no acute process. EKG shows tachycardia with no obvious ischemic findings, patient denies chest pain. On reevaluation patient still below his baseline reportedly, has significantly worse dyspnea on exertion and respiratory effort compared to prior although clinically he is significantly improved. Discussed with Dr. Figueroa. Patient requesting to stay. Discussed with . hospitalistMariajose, patient will be admitted for telemetry observation for COPD exacerbation in the setting of chronic respiratory failure. - Vital Signs Vital signs: Temp Pulse Resp BP Pulse Ox 98.3 F 114 H 13 103/65 96 10/10/16 02:59 10/10/16 02:59 10/10/16 07:01 10/10/16 07:01 10/10/16 07:01 - Laboratory Result Diagrams: 10/10/16 04:41 10/10/16 04:41 Laboratory results interpreted by me: 10/10/16 10/10/16 10/10/16 04:41 04:41 04:41 RBC 4.28 L Hgb 13.4 L RDW 17.3 H Plt Count 146 L Seg Neutrophils % 79.3 H Lymphocytes % 9.5 L PT 26.5 H VBG HCO3 Creatinine 1.50 H Est GFR ( Amer) 57 L Est GFR (Non-Af Amer) 47 L Glucose 126 H Calcium 8.0 L Alkaline Phosphatase 192 H Total Protein 6.2 L Albumin 2.7 L 10/10/16 04:41 RBC Hgb RDW Plt Count Seg Neutrophils % Lymphocytes % PT VBG HCO3 33.9 H Creatinine Est GFR ( Amer) Est GFR (Non-Af Amer) Glucose Calcium Alkaline Phosphatase Total Protein Albumin Discharge - Discharge Clinical Impression: COPD exacerbation, Shortness of breath Condition: Stable Disposition: ADMITTED OBSERVATION Admitting Provider: Hospitalist Unit Admitted: Telemetry Referrals: ASIF HADDAD, OD [Primary Care Provider] - Follow up as needed
[2016-10-10 05:17] LABS: VENOUS BLOOD HCO3 33.9 mmol/L (20-32); VENOUS BLOOD PCO2 58.4 mmHg (35-63); VENOUS BLOOD PH 7.38 (7.30-7.42)
[2016-10-10 05:23] LABS: ABSOLUTE BASOPHILS # (AUTO) 0.1 10^3/uL (0.0-0.2); ABSOLUTE EOSINOPHILS # (AUTO) 0.2 10^3/uL (0.0-0.6); ABSOLUTE LYMPHOCYTES (AUTO) 0.8 10^3/uL (0.5-4.7); ABSOLUTE MONOCYTES (AUTO) 0.7 10^3/uL (0.1-1.4); ABSOLUTE NEUT (AUTO) 6.8 10^3/uL (1.7-8.2); EOSINOPHILS % (AUTO) 2.3 % (0-6); HEMATOCRIT 40.5 % (37.9-51.0); HEMOGLOBIN 13.4 g/dL (13.5-17.0); HGB HCT DIFFERENCE -0.3; LYMPHOCYTES % (AUTO) 9.5 % (13-45); MEAN CORPUSCULAR HEMOGLOBIN 31.4 pg (27.0-33.4); MEAN CORPUSCULAR HGB CONC 33.1 g/dL (32.0-36.0); MEAN CORPUSCULAR VOLUME 95 fl (80-97); MONOCYTES % (AUTO) 7.9 % (3-13); RED BLOOD COUNT 4.28 10^6/uL (4.35-5.55); RED CELL DISTRIBUTION WIDTH 17.3 % (11.5-14.0); SEGMENTED NEUTROPHILS % (AUTO) 79.3 % (42-78); WHITE BLOOD COUNT 8.6 10^3/uL (4.0-10.5)
[2016-10-10 05:26] LABS: PROTHROMBIN TIME 26.5 SEC (11.4-15.4)
--- NOTE | 2016-10-10 05:26 | RADIOLOGY REPORT (SQ) ---
EXAM DESCRIPTION: CHEST SINGLE VIEW COMPLETED DATE/TIME: 10/10/2016 4:31 am REASON FOR STUDY: shortness of breath, cough COMPARISON: None. EXAM PARAMETERS: NUMBER OF VIEWS: One view. TECHNIQUE: Single frontal radiographic view of the chest acquired. RADIATION DOSE: NA LIMITATIONS: None. FINDINGS: LUNGS AND PLEURA: Severe bilateral lower lobar centrilobular emphysema/bullous disease, ri ght more than left. Small atelectasis or scar. [id number] chronic interstitial markings. Chr onic obscuration -blunting of the bilateral costophrenic angles. MEDIASTINUM AND HILAR STRUCTURES: No masses. Contour normal. HEART AND VASCULAR STRUCTURES: Normal cardiac silhouette size. Atherosclerosis. BONES: No acute findings. HARDWARE: None in the chest. OTHER: No other significant finding. IMPRESSION: No acute cardiopulmonary findings. Stable severe emphysematous/ bullous disease of lowe r lobe predominance. TECHNICAL DOCUMENTATION: JOB ID: [id number]
[2016-10-10 05:31] LABS: ALANINE AMINOTRANSFERASE 40 U/L (21-72); ALBUMIN 2.7 g/dL (3.5-5.0); ALKALINE PHOSPHATASE 192 U/L (38-126); ANION GAP 6 (5-19); ASPARTATE AMINO TRANSFERASE 41 U/L (17-59); BILIRUBIN,DIRECT 0.3 mg/dL (0.0-0.4); BILIRUBIN,TOTAL 0.8 mg/dL (0.2-1.3); BLOOD UREA NITROGEN 16 mg/dL (7-20); CARBON DIOXIDE 30 mmol/L (22-30); CHLORIDE 102 mmol/L (98-107); CREATINE KINASE 102 U/L (55-170); GLUCOSE 126 mg/dL (75-110); POTASSIUM 4.2 mmol/L (3.6-5.0); SODIUM 138.1 mmol/L (137-145); TOTAL PROTEIN 6.2 g/dL (6.3-8.2)
[2016-10-10 05:43] LABS: CREATINE KINASE MB 1.02 ng/mL (<4.55); TROPONIN I < 0.012 ng/mL
[2016-10-10] MEDS ORDERED: NORMAL SALINE 1000 ML 500 ML IV ONE (05:58)
[2016-10-10] MEDS ORDERED: LEVALBUTEROL HCL NEB 1.25 MG/3 ML AMPUL NEB PRN (08:51)
[2016-10-10] MEDS ORDERED: ACETAMINOPHEN 325 MG TABLET PO PRN (08:51)
[2016-10-10] MEDS ORDERED: ONDANSETRON HCL INJ/PF 4 MG/2 ML SDV IV PRN (08:57)
[2016-10-10] MEDS ORDERED: DEXTROSE 40% GEL 15 GM TUBE PO PRN ×2 (09:02)
[2016-10-10] MEDS ORDERED: GLUCAGON,HUMAN RECOMB 1 MG INJ IM PRN (09:02)
[2016-10-10] MEDS ORDERED: DEXTROSE 50%-WATER 25 GM/50 ML DISP.SYRIN IV PRN ×2 (09:02)
--- NOTE | 2016-10-10 09:23 | PDOC H&P ---
History of Present Illness Admission Date/PCP: 10/10/16 08:22 ASIF HADDAD OD Patient complains of: Shortness of breath History of Present Illness: CHATO BRAXTON SR is a 61 year old male with multiple admissions for COPD exacerbation, started to develop shortness of breath of about 2-3 days duration with associated wheezing and coughing. Patient reports sinus congestion and chills but no definite fever. There is no sweating. There is no chest pain. The patient was on oxygen at home and has nebulizers affording no significant improvement. Symptoms persisted and got worse last night therefore patient went to the emergency room for evaluation. He was given a dose of Solu-Medrol, nebulizer. 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 Patient was then referred for admission. Past Medical History Cardiac Medical History: Reports: Congestive Heart Failure - Left ventricular diastolic dysfunction, Coronary Artery Disease, Myocardial Infarction, Pulmonary Embolism Denies: Hyperlipidema, Hypertension Pulmonary Medical History: Reports: Asthma, Bronchitis, Chronic Obstructive Pulmonary Disease (COPD) - secondary to alpha-1 antitrypsin deficiency, Pneumonia Denies: Sleep Apnea, Tuberculosis Neurological Medical History: Denies: Seizures Endocrine Medical History: Reports: Diabetes Mellitus Type 2 Denies: Diabetes Mellitus Type 1, Hyperthyroidism, Hypothyroidism GI Medical History: Reports: 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 Social History Information Source: Patient Lives with: Family Smoking Status: Former Smoker Frequency of Alcohol Use: None Hx Recreational Drug Use: No Drugs: None Hx Prescription Drug Abuse: No Family History Family History: CAD, Hypertension, Other - CHF Parental Family History Reviewed: Yes Children Family History Reviewed: Yes Sibling(s) Family History Reviewed.: Yes Medication/Allergy Home Medications: Albuterol Sulfate [Proair HFA Inhalation Aerosol 8.5 gm MDI] 2 puff IH Q4HP PRN 09/25/16 Bumetanide [Bumex 1 mg Tablet] 1 mg PO BID 09/25/16 Gabapentin [Neurontin 300 mg Capsule] 600 mg PO DAILY 09/25/16 Ipratropium/Albuterol Sulfate [Iprat-Albut 0.5-3(2.5) mg/3 ml] 3 ml NEB QID 07/09 Midodrine HCl 10 mg PO TID 09/25/16 Potassium Chloride [Klor-Con 10 Meq Tablet.sa] 10 meq PO BID 09/25/16 Spironolactone [Aldactone] 50 mg PO DAILY 09/25/16 Tamsulosin HCl [Flomax 0.4 mg Cap.sr] 0.4 mg PO DAILY@1800 09/25/16 Docusate Sodium [Colace 100 mg Capsule] 100 mg PO BID #60 capsule 09/27/16 Warfarin Sodium [Coumadin 2 mg Tablet] 2 mg PO DAILY 10/10/16 Allergies/Adverse Reactions: Heparin Analogues [Heparin Agents] Allergy (Severe, Verified 09/24/16 20:12) Thrombocytopenia heparinoids [Heparinoids] Allergy (Severe, Verified 09/24/16 20:12) Thrombocytopenia codeine [Codeine] Allergy (Unknown, Verified 09/24/16 20:12) GI upset Penicillins Allergy (Unknown, Verified 09/25/16 01:06) Swelling doxycycline Allergy (Verified 09/24/16 20:12) Review of Systems Constitutional: PRESENT: fever(s), weakness - Generalized. ABSENT: chills, headache(s), night sweats, weight gain, weight loss Eyes: ABSENT: visual disturbances Ears: ABSENT: hearing changes Nose, Mouth, and Throat: ABSENT: mouth pain, sore throat Cardiovascular: PRESENT: dyspnea on exertion - chronic, edema - Chronic both lower extremities. ABSENT: chest pain, orthropnea, palpitations Respiratory: PRESENT: cough, dyspnea, sputum - Minimal. ABSENT: hemoptysis Gastrointestinal: ABSENT: abdominal pain, constipation, diarrhea, hematemesis, hematochezia, nausea, vomiting Genitourinary: ABSENT: dysuria, hematuria Musculoskeletal: ABSENT: joint swelling Integumentary: ABSENT: pruritus, rash, wounds Neurological: ABSENT: abnormal gait, abnormal speech, confusion, dizziness, focal weakness, syncope Psychiatric: ABSENT: anxiety, depression, homidical ideation, suicidal ideation Endocrine: ABSENT: cold intolerance, heat intolerance, polydipsia, polyuria Hematologic/Lymphatic: ABSENT: easy bleeding, easy bruising Physical Exam Vital Signs: Temp Pulse Resp BP Pulse Ox 98.3 F 114 H 18 101/69 91 L 10/10/16 02:59 10/10/16 02:59 10/10/16 08:01 10/10/16 08:01 10/10/16 08:01 General appearance: PRESENT: no acute distress, obese Head exam: PRESENT: atraumatic, normocephalic Eye exam: PRESENT: conjunctiva pink, EOMI, PERRLA. ABSENT: scleral icterus Ear exam: PRESENT: normal external ear exam Mouth exam: PRESENT: moist, neck supple, tongue midline Neck exam: ABSENT: carotid bruit, JVD, lymphadenopathy, thyromegaly Respiratory exam: PRESENT: decreased breath sounds, rhonchi - Bilateral occasional, wheezes - Mild bilateral. ABSENT: rales Cardiovascular exam: PRESENT: RRR. ABSENT: diastolic murmur, rubs, systolic murmur Pulses: PRESENT: normal dorsalis pedis pul Vascular exam: PRESENT: normal capillary refill GI/Abdominal exam: PRESENT: normal bowel sounds, soft. ABSENT: distended - Obese, guarding, mass, organolmegaly, rebound, tenderness Rectal exam: PRESENT: deferred Extremities exam: PRESENT: full ROM, other - Trace to +1 edema bilateral. ABSENT: calf tenderness, clubbing Neurological exam: PRESENT: alert, awake, oriented to person, oriented to place , oriented to time, oriented to situation Psychiatric exam: PRESENT: appropriate affect, normal mood. ABSENT: homicidal ideation, suicidal ideation Skin exam: PRESENT: dry, intact, warm. ABSENT: cyanosis, rash Results Impressions: Chest X-Ray 10/10/16 04:10 IMPRESSION: No acute cardiopulmonary findings. Stable severe emphysematous/ bullous disease of lower lobe predominance. Assessment & Plan - Diagnosis (1) COPD exacerbation Is this a current diagnosis for this admission?: Yes (2) Coagulopathy Is this a current diagnosis for this admission?: Yes (3) Rgtzh-1-vtdgslstcao deficiency Is this a current diagnosis for this admission?: Yes (4) Chronic respiratory failure with hypoxia Is this a current diagnosis for this admission?: Yes (5) Cirrhosis Qualifiers: Hepatic cirrhosis type: congenital cirrhosis Qualified Code(s): P78.81 - Congenital cirrhosis (of liver) Is this a current diagnosis for this admission?: Yes (6) Diabetes mellitus type 2 in obese Is this a current diagnosis for this admission?: Yes (7) Diastolic CHF Qualifiers: Congestive heart failure chronicity: chronic Qualified Code(s): I50.32 - Chronic diastolic (congestive) heart failure Is this a current diagnosis for this admission?: Yes (8) Gastroesophageal reflux disease Qualifiers: Esophagitis presence: without esophagitis Qualified Code(s): K21.9 - Gastro-esophageal reflux disease without esophagitis Is this a current diagnosis for this admission?: Yes (9) History of pulmonary embolism Is this a current diagnosis for this admission?: Yes (10) Depression Qualifiers: Depression Type: unspecified Qualified Code(s): F32.9 - Major depressive disorder, single episode, unspecified Is this a current diagnosis for this admission?: Yes (11) BPH (benign prostatic hyperplasia) Qualifiers: Lower urinary tract symptom presence: symptoms absent Qualified Code (s): N40.0 - Benign prostatic hyperplasia without lower urinary tract symptoms Is this a current diagnosis for this admission?: Yes (12) CAD (coronary artery disease) Qualifiers: Coronary Disease-Associated Artery/Lesion type: [place] artery [place] vs. transplanted heart: [place] heart Associated angina: without angina Qualified Code(s): I25.10 - Atherosclerotic heart disease of [place] coronary artery without angina pectoris Is this a current diagnosis for this admission?: Yes - Time Time Spent: 30 to 50 Minutes - Inpatient Certification Based on my medical assessment, after consideration of the patient's comorbidities, presenting symptoms, or acuity I expect that the services needed warrant INPATIENT care.: Yes I certify that my determination is in accordance with my understanding of Medicare's requirements for reasonable and necessary INPATIENT services [42 CFR 412.3e].: Yes Medical Necessity: Need Close Monitoring Due to Risk of Patient Decompensation, Need For Continuous Telemetry Monitoring, Need for Nebulizer Therapy and Monitoring of Response, Risk of Complication if Not Cared For in Hospital Post 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 The patient was begun on intravenous steroids and [id number] nebulizers. We will monitor platelet count and coagulation panel as patient is on warfarin. I will resume the patient's home medication including the midodrine. Supplemental oxygen will be given. Sliding scale insulin will be done. Further testing depends on the initial evaluations outlined above.
[2016-10-10 11:04] LABS: THYROID STIMULATING HORMONE 0.35 uIU/mL (0.47-4.68)
[2016-10-10] MEDS: METHYLPREDNISOLONE INJ 125 MG/2 ML SDV IV SCH ×3 (11:58→23:51)
[2016-10-10] MEDS: SPIRONOLACTONE 25 MG TABLET PO SCH (11:59)
[2016-10-10] MEDS: POTASSIUM CHLORIDE 10 MEQ TABLET.SA PO SCH ×2 (11:59→17:50)
[2016-10-10] MEDS: GABAPENTIN 300 MG CAPSULE PO SCH (12:00)
[2016-10-10] MEDS: DOCUSATE SODIUM 100 MG CAPSULE PO SCH ×2 (12:00→17:51)
--- NOTE | 2016-10-10 12:58 | EKG REPORT ---
SEVERITY:- ABNORMAL ECG - SINUS TACHYCARDIA BORDERLINE R WAVE PROGRESSION, ANTERIOR LEADS BORDERLINE T ABNORMALITIES, ANT-LAT LEADS : Confirmed by: Olimpia Narayan MD 10-Oct-2016 12:57:20
[2016-10-10] MEDS: INSULIN REG, HUMAN 100 UNIT/ML 3 ML VIAL (PYX) SUBCUT PRN ×3 (13:38→21:41)
[2016-10-10] MEDS ORDERED: MIDODRINE HCL 5 MG TABLET PO SCH (14:00)
[2016-10-10] MEDS: IPRATROPIUM BROMIDE 0.02% NEB 0.5 MG/2.5 ML AMPUL NEB SCH ×2 (14:17→20:52)
[2016-10-10] MEDS: LEVALBUTEROL HCL NEB 1.25 MG/3 ML AMPUL NEB SCH ×2 (14:18→20:52)
[2016-10-10] MEDS: MIDODRINE HCL 5 MG TABLET PO SCH (14:33)
[2016-10-10] MEDS: BUMETANIDE 1 MG TABLET PO SCH ×2 (14:35→17:53)
[2016-10-10 14:55] LABS: APPEARANCE,URINE CLEAR; BILIRUBIN,URINE NEGATIVE (NEGATIVE); GLUCOSE, URINE NEGATIVE (NEGATIVE); KETONES,URINE NEGATIVE (NEGATIVE); LEUKOCYTE ESTERASE,URINE NEGATIVE (NEGATIVE); NITRITE,URINE NEGATIVE (NEGATIVE); PROTEIN,URINE NEGATIVE (NEGATIVE); URINE SPECIFIC GRAVITY 1.012; UROBILINOGEN,URINE NEGATIVE mg/dL (<2.0)
[2016-10-10] MEDS: LANSOPRAZOLE 30 MG TAB.RAP.DR PO SCH (16:30)
[2016-10-10] MEDS ORDERED: TAMSULOSIN HCL 0.4 MG CAP.SR.24H PO SCH (18:00)
[2016-10-10] MEDS ORDERED: WARFARIN SODIUM 2 MG TABLET PO SCH (22:00)
[2016-10-10] MEDS ORDERED: WARFARIN SODIUM 1 MG TABLET PO SCH (22:00)
[2016-10-11] MEDS: LEVALBUTEROL HCL NEB 1.25 MG/3 ML AMPUL NEB SCH ×3 (02:35→13:28)
[2016-10-11] MEDS: IPRATROPIUM BROMIDE 0.02% NEB 0.5 MG/2.5 ML AMPUL NEB SCH ×3 (02:35→13:28)
[2016-10-11] MEDS: METHYLPREDNISOLONE INJ 125 MG/2 ML SDV IV SCH ×2 (06:19→12:15)
[2016-10-11] MEDS: MIDODRINE HCL 5 MG TABLET PO SCH ×3 (06:19→15:01)
[2016-10-11] MEDS: LANSOPRAZOLE 30 MG TAB.RAP.DR PO SCH ×2 (06:19→16:35)
[2016-10-11] MEDS: INSULIN REG, HUMAN 100 UNIT/ML 3 ML VIAL (PYX) SUBCUT PRN ×2 (07:51→12:20)
[2016-10-11 09:35] LABS: HEMATOCRIT 38.8 % (37.9-51.0); HEMOGLOBIN 12.7 g/dL (13.5-17.0); HGB HCT DIFFERENCE -0.7; MEAN CORPUSCULAR HEMOGLOBIN 30.8 pg (27.0-33.4); MEAN CORPUSCULAR HGB CONC 32.9 g/dL (32.0-36.0); MEAN CORPUSCULAR VOLUME 94 fl (80-97); RED BLOOD COUNT 4.13 10^6/uL (4.35-5.55); RED CELL DISTRIBUTION WIDTH 17.2 % (11.5-14.0); WHITE BLOOD COUNT 15.3 10^3/uL (4.0-10.5)
[2016-10-11 09:41] LABS: PROTHROMBIN TIME 24.1 SEC (11.4-15.4)
[2016-10-11 10:05] LABS: ANION GAP 8 (5-19); BLOOD UREA NITROGEN 26 mg/dL (7-20); CALCIUM 8.5 mg/dL (8.4-10.2); CARBON DIOXIDE 23 mmol/L (22-30); CHLORIDE 101 mmol/L (98-107); CREATININE RESULT 1.29 mg/dL (0.52-1.25); GLUCOSE 205 mg/dL (75-110); POTASSIUM 5.1 mmol/L (3.6-5.0); SODIUM 131.9 mmol/L (137-145)
[2016-10-11] MEDS: GABAPENTIN 300 MG CAPSULE PO SCH (10:25)
[2016-10-11] MEDS: SPIRONOLACTONE 25 MG TABLET PO SCH (10:25)
[2016-10-11] MEDS: BUMETANIDE 1 MG TABLET PO SCH (10:27)
[2016-10-11] MEDS: POTASSIUM CHLORIDE 10 MEQ TABLET.SA PO SCH (10:28)
[2016-10-11] MEDS: DOCUSATE SODIUM 100 MG CAPSULE PO SCH (10:28)
[2016-10-11 12:58] LABS: APPEARANCE,URINE CLEAR; BILIRUBIN,URINE NEGATIVE (NEGATIVE); GLUCOSE, URINE NEGATIVE (NEGATIVE); KETONES,URINE NEGATIVE (NEGATIVE); LEUKOCYTE ESTERASE,URINE NEGATIVE (NEGATIVE); NITRITE,URINE NEGATIVE (NEGATIVE); PROTEIN,URINE NEGATIVE (NEGATIVE); URINE SPECIFIC GRAVITY 1.017; UROBILINOGEN,URINE NEGATIVE mg/dL (<2.0)
[2016-10-11 13:46] VITALS: BP 101/58
--- NOTE | 2016-10-11 16:02 | PDOC DISCHARGE SUMMARY ---
General - Admit/Disc Date/PCP Admission Date/Primary Care Provider: 10/10/16 08:52 ASIF HADDAD, OD Discharge Date: 10/11/16 - Discharge Diagnosis (1) COPD exacerbation Is this a current diagnosis for this admission?: Yes (2) Coagulopathy Is this a current diagnosis for this admission?: Yes (3) Rggph-8-cjfeqrjypab deficiency Is this a current diagnosis for this admission?: Yes (4) Chronic respiratory failure with hypoxia Is this a current diagnosis for this admission?: Yes (5) Cirrhosis Is this a current diagnosis for this admission?: Yes (6) Diabetes mellitus type 2 in obese Is this a current diagnosis for this admission?: Yes (7) Diastolic CHF Is this a current diagnosis for this admission?: Yes (8) Gastroesophageal reflux disease Is this a current diagnosis for this admission?: Yes (9) History of pulmonary embolism Is this a current diagnosis for this admission?: Yes (10) Depression Is this a current diagnosis for this admission?: Yes (11) BPH (benign prostatic hyperplasia) Is this a current diagnosis for this admission?: Yes (12) CAD (coronary artery disease) Is this a current diagnosis for this admission?: Yes - Additional Information Resuscitation Status: Full Code Discharge Diet: Cardiac, Diabetic Discharge Activity: Activity As Tolerated, Balance Activity w/Rest, Slowly Increase Activity Home Medications: Albuterol Sulfate [Proair HFA Inhalation Aerosol 8.5 gm MDI] 2 puff IH Q4HP PRN 09/25/16 Bumetanide [Bumex 1 mg Tablet] 1 mg PO BID 09/25/16 Gabapentin [Neurontin 300 mg Capsule] 600 mg PO DAILY 09/25/16 Ipratropium/Albuterol Sulfate [Iprat-Albut 0.5-3(2.5) mg/3 ml] 3 ml NEB QID 07/09 Midodrine HCl 10 mg PO 09/25/16 Spironolactone [Aldactone] 50 mg PO DAILY 09/25/16 Tamsulosin HCl [Flomax 0.4 mg Cap.sr] 0.4 mg PO DAILY@1800 09/25/16 Docusate Sodium [Colace 100 mg Capsule] 100 mg PO BID #60 capsule 09/27/16 Warfarin Sodium [Coumadin 1 mg Tablet] 1 mg PO 10/10/16 Warfarin Sodium [Coumadin 2 mg Tablet] 2 mg PO 10/10/16 Dexlansoprazole [Dexilant 30 mg Capsule] 60 mg PO DAILY #60 10/11/16 Docusate Sodium [Colace 100 mg Capsule] 100 mg PO BID capsule 10/11/16 Prednisone [Sterapred Ds] 1 pkg PO ASDIR PRN 12 Days 10/11/16 Additional Information: PT/INR checked with primary care physician as scheduled. Check CBC as well as potassium level as outpatient with primary care physician in 1 week. Return to the emergency room if symptoms recur or worsens. Follow-up final report of blood cultures outpatient with primary care physician. History of Present Illness Patient complains of: shortness of breath History of Present Illness: CHATO BRAXTON SR is a 61 year old male with multiple admissions for COPD exacerbation, started to develop shortness of breath of about 2-3 days duration with associated wheezing and coughing. Patient reports sinus congestion and chills but no definite fever. There is no sweating. There is no chest pain. The patient was on oxygen at home and has nebulizers affording no significant improvement. Symptoms persisted and got worse last night therefore patient went to the emergency room for evaluation. He was given a dose of Solu-Medrol, nebulizer. hospital monitor shows episodes of non-sustained SVT. Patient was then referred for admission. Hospital Course Hospital Course: The patient was admitted to [facility]. The patient was begun on [id number]-dyi-rezmy nebulizer as well as intravenous steroids. Patient was continued on his medications including the diuretics as well as potassium supplement and warfarin. PT/INR was monitored and it was therapeutic. Supplemental oxygen was given. The following morning the patient significantly improved and he is very adamant about being discharged back home. His stool for occult blood was noted to be positive however he states he has bad hemorrhoids. 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 His course was noted for mildly elevated potassium of 5.1. He was given Kayexalate and was advised to recheck potassium level as outpatient in 1 week with primary care physician. He was likewise advised to hold potassium until reevaluated by his primary care physician. The rest of the hospital stay is unremarkable. Physical Exam Vital Signs: Temp Pulse Resp BP Pulse Ox 97.4 F 117 H 21 H 101/58 L 90 L 10/11/16 12:13 10/11/16 13:29 10/11/16 13:29 10/11/16 12:13 10/11/16 13:29 Intake & Output 10/10/16 10/11/16 10/12/16 06:59 06:59 06:59 Intake Total 1005 330 Output Total 400 Balance 605 330 Weight 86.5 kg General appearance: PRESENT: no acute distress, cooperative Head exam: PRESENT: normocephalic Eye exam: PRESENT: EOMI Mouth exam: PRESENT: moist, neck supple Neck exam: ABSENT: JVD Respiratory exam: PRESENT: rhonchi - Scattered bilateral, minimal. ABSENT: wheezes Cardiovascular exam: PRESENT: RRR. ABSENT: gallop GI/Abdominal exam: PRESENT: normal bowel sounds, soft. ABSENT: distended, tenderness Extremities exam: ABSENT: pedal edema Neurological exam: PRESENT: alert, awake, oriented to situation Skin exam: PRESENT: dry, warm. ABSENT: cyanosis Results Laboratory Results: 10/11/16 09:08 10/11/16 09:08 10/11/16 10/11/16 10/11/16 09:08 09:08 10:30 WBC 15.3 H RBC 4.13 L Hgb 12.7 L Hct 38.8 MCV 94 MCH 30.8 MCHC 32.9 RDW 17.2 H Plt Count 139 L Sodium 131.9 L Potassium 5.1 H Chloride 101 Carbon Dioxide 23 Anion Gap 8 BUN 26 H Creatinine 1.29 H Est GFR ( Amer) > 60 Est GFR (Non-Af Amer) 56 L Glucose 205 H Calcium 8.5 Urine Color Urine Appearance Urine pH Ur Specific [place] Urine Protein Urine Glucose (UA) Urine Ketones Urine Blood Urine Nitrite Ur Leukocyte Esterase Urine WBC (Auto) Urine RBC (Auto) Stool Occult Blood POSITIVE 10/11/16 10:30 WBC RBC Hgb Hct MCV MCH MCHC RDW Plt Count Sodium Potassium Chloride Carbon Dioxide Anion Gap BUN Creatinine Est GFR ( Amer) Est GFR (Non-Af Amer) Glucose Calcium Urine Color YELLOW Urine Appearance CLEAR Urine pH 6.0 Ur Specific [place] 1.017 Urine Protein NEGATIVE Urine Glucose (UA) NEGATIVE Urine Ketones NEGATIVE Urine Blood NEGATIVE Urine Nitrite NEGATIVE Ur Leukocyte Esterase NEGATIVE Urine WBC (Auto) 2 Urine RBC (Auto) 0 Stool Occult Blood Impressions: Chest X-Ray 10/10/16 04:10 IMPRESSION: No acute cardiopulmonary findings. Stable severe emphysematous/ bullous disease of lower lobe predominance. Qualifiers PATEINT BEING DISCHARGED WITH ANY OF THE FOLLOWING DIAGNOSIS?: No Plan Discharge Plan: Follow-up with primary care physician in 1 week. Follow-up with Dr. Kimble as scheduled. Time Spent: Less than 30 Minutes
--- NOTE | 2016-10-11 16:05 | Physician Advisory Note ---
Physician Advisor ProgressNote .: Pursuant to the plan for [facility], I have reviewed the medical record for this patient. Physician Advisor Statement: Excellent documentation of chronic diast CHF, chr hypoxemic resp failure requiring 2L O2 at baseline. Please consider documentin. ? - "Acute on chronic hypoxemic resp failure, w/O2 sat only 93% on >usual O2 initially and sats as low as 91% & 90% on his usual 2L O2 this AM, with labored breathing at times in ED & again noted by nursing this AM" 2. "I am concerned by pt's persistent/recurrent hemodynamic instablity" - if this isn't his baseline - or pt's . 3. "Acute hyponatremia, suspect due to " - - Attending: Is this pt appropriate for palliative care? If he wants to go home so quickly with continued metabolic & hemodynamic findings as he does, is it because he doesn't expect to live outside of the hospital for much longer? 61yo male w/chr hypoxemic resp failure requiring 2L O2 at baseline due to alpha- 1-AT defic w/assoc'd COPD, multiple previous adm.s for COPD exac.s, DM-2, CAD, chr diast CHF, cirrhosis due to A1AT defic, past PE on warfarin, HIT, GERD, depression, Lt chest tube in past, C.diff & MRSA in past - usually on qid Duonebs, prn albuterol, bid Bumex, spironolactone, Flomax, coumadin, midodrin tid. presented 10/10/16 @3AM due to worsening SOB, cough having turned productive, with wheezing, chills, worsening despite use of nebs at home. In ED, HR 114, R 20, BP 94/59, O2 sat 93% on O2 3L. Able to speak in full sentences, but w/episdoes of labored breathing per ED dr. Very diminished air movement, 1+ BLE edema. "Slightly tachypneic." WBC 8.6, Hgb 13.4, plts 146, Cr 1.5, glc 126, Alb 2.7. CXR = no acute findings but severe emphysematous, bullous dz. Stool hem (+). ED dr reported pt signif.ly improved after 3rd Duoneb & Solumedrol, + 500ml IVF in ED, but on re-eval, was still not baseline, "significantly worse CARPIO & resp effort" compared to prior, although "clinically he is sig.ly improved". "Pt requesting to stay." By time of H&P later that AM, pt had had episodes of non-sustained VTach on tele. ROS included chronic CARPIO, chornic BLE edema, acute fever, weakness. "NAD ", obese. Decreased BS, rhonchi, wheezes. Attending ordered Atrovent nebs q6h, Xopanex nebx q6h + prn, IV Solumedrol 125mg q6h, O2 2L, daily wts, f/u plts/coags on warfarin, & documented concerns for risk of decompensation, need for tele, need for neb tx.s & monitoring response, risk of complication if not cared for in hospital. Status: A typical COPD exac should typically start as Outpt Obs, but this is a pt with severe underlying lung dz along with CAD that is at higher risk for cardiac (& other organ) ischemia in setting of respiratory decompensation, particularly given (+) anemia present as well. He has been hospitalized multiple times for COPD exacerbations, so attending may be well aware of how long it usually takes for him to improve from the level of acute decompensation present this time - & it is quite likely this usually takes more than 2 MNs. Attending was apparently quite impressed by how badly pt was fairing acutely, given the tremendous doses of steroids ordered even though patient doesn't usually use steroids at baseline. Pt was showing evidence of acute on chr resp failure initially, with P/F ratio 213 (93% on 3L). [Baseline O2 sats 93-99% sat on 1L O2 on discharge day last admission, earlier this month.] Pt w/persistent hemodynamic instability. On 10/10, pt had persistent tachycardia >100, and on 10/11, pt has had persistent HR 90s-117 so far. On 10/10, pt was documented w/RR as high as 36, & still w/tachypnea in low 20s on 10/11 at times. Pt's sat as high as mid-high 90s on 2L O2 on 10/10, but this AM, sat 90 & 91% sat on 2L O2. Pt documented to have labored breathing w/SOB & HR 105 this AM at 10AM. [Pt has had frequent hypotension as low as 80s/50s, w/MAP 60s, but pt takes Mitodrin at baseline, so likely has chronic hypotension.] Pt has developed new acute hyponatremia, w/mild hyperkalemia, which is concerning in light of recurrent arrhythmias & risk for more given CAD. He has developed worsening thrombocytopenia, which bears close monitoring given previous HIT. Pt has even worse anemia, Hgb 12.7, which is made more concerning because of warfarin tx & stool showing evidence of microscopic blood. WBC is worse, at 15.3, though this is likely due to steroids. Certainly, this pt has severe underlying lung disease, multisystem underlying disease that interacts with his chroni & acute lung dz. High risks for morbidity & mortality. Appropriate for Inpt status. Addendum: Spoke w/attending, who is actually going to allow pt to go home today, after 1MN , despite the above. (This surprised this reviewer!) He had not planned to send pt home today. He had expected - & advised - pt to stay at least a 2nd MN due to the continued severity of his sx & degree of tx necessary so far to achieve the current degree of improvement (not to mention the recent stay just this month indicating pt not terribly stable), but pt was adamant about d/c today & attending acquiesced to satisfy the pt. He states he was quite surprised that pt was already feeling sufficiently improved at this point to push for going home.
[2016-10-11] MEDS ORDERED: SODIUM POLYSTYRENE SULFONATE 15 GM/60 ML PO ONE (16:45)
[2016-10-11] MEDS ORDERED: WARFARIN SODIUM 2 MG TABLET PO SCH (22:00)
== END 2016-10-11 17:30 | disposition home or self-care (01) | DRG 191 ==
LOC: ER 02:53 → EH 08:22 → OBSVTOIN 08:52 → 3S 10:53
PROC: 3E0F73Z Introduction of Anti-inflammatory into Respiratory Tract, Via Natural or Artificial Opening (ICD-10-PCS; principal; 2016-10-10)
DX: J44.1 Chronic obstructive pulmonary disease with (acute) exacerbation (principal); J96.11 Chronic respiratory failure with hypoxia; I50.32 Chronic diastolic (congestive) heart failure; E88.01 Alpha-1-antitrypsin deficiency; E11.9 Type 2 diabetes mellitus without complications; E66.9 Obesity, unspecified; Z68.28 Body mass index [BMI] 28.0-28.9, adult; I11.0 Hypertensive heart disease with heart failure; K74.60 Unspecified cirrhosis of liver; K21.9 Gastro-esophageal reflux disease without esophagitis; F32.9 Major depressive disorder, single episode, unspecified; N40.0 Benign prostatic hyperplasia without lower urinary tract symptoms; I25.10 Atherosclerotic heart disease of native coronary artery without angina pectoris; D75.82 Heparin induced thrombocytopenia (HIT); I25.2 Old myocardial infarction; Z79.01 Long term (current) use of anticoagulants; Z86.711 Personal history of pulmonary embolism; Z79.899 Other long term (current) drug therapy; Z99.81 Dependence on supplemental oxygen; Z86.14 Personal history of Methicillin resistant Staphylococcus aureus infection; Z87.891 Personal history of nicotine dependence; Z88.8 Allergy status to other drugs, medicaments and biological substances; Z88.6 Allergy status to analgesic agent; Z88.0 Allergy status to penicillin; Z88.3 Allergy status to other anti-infective agents; Z82.49 Family history of ischemic heart disease and other diseases of the circulatory system
CPT/HCPCS: 36415; 71010; 80048; 80053; 81001; 82272; 82550; 82553; 82803; 82962; 83880; 84439; 84443; 84484; 85025; 85027; 85610; 87040; 93005; 93010; 94640; 96361; 96374; 96375; 99285; J1815; J2405; J2930; J3490; J7030; J7620

== ENCOUNTER 2016-10-17 18:46 | Emergency (ER) | payer MEDICARE, OTHER ==
--- NOTE | 2016-10-17 19:19 | ER Document Report ---
ED Medical Screen (RME) - General Chief Complaint: Rectal Bleeding Stated Complaint: STOMACH PAIN Time Seen by Provider: 10/17/16 19:16 TRAVEL OUTSIDE OF THE [place] IN LAST 30 DAYS: No - HPI Notes: 10/17/16 19:18 Patient is on Coumadin for history of PE coming in for rectal bleeding was recently admitted with positive occult stools that was related to hemorrhoids according to the discharge summary patient states continues to have dark and bright red blood per rectum - Related Data Allergies/Adverse Reactions: Heparin Analogues [Heparin Agents] Allergy (Severe, Verified 09/24/16 20:12) Thrombocytopenia heparinoids [Heparinoids] Allergy (Severe, Verified 09/24/16 20:12) Thrombocytopenia codeine [Codeine] Allergy (Unknown, Verified 09/24/16 20:12) GI upset Penicillins Allergy (Unknown, Verified 09/25/16 01:06) Swelling doxycycline Allergy (Verified 09/24/16 20:12) Past Medical History - Social History Family history: CAD - Past Medical History Cardiac Medical History: Reports: Hx Congestive Heart Failure - Left ventricular diastolic dysfunction, Hx Coronary Artery Disease, Hx Heart Attack, Hx Pulmonary Embolism Denies: Hx Hypercholesterolemia, Hx Hypertension Pulmonary Medical History: Reports: Hx Asthma, Hx Bronchitis, Hx 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 Denies: Hx Diabetes Mellitus Type 1, Hx Hyperthyroidism, Hx Hypothyroidism Renal/ Medical History: Denies: Hx Peritoneal Dialysis GI Medical History: Reports: Hx Cirrhosis - [place] secondary to alpha-1 antitrypsin deficiency., Hx Gastroesophageal Reflux Disease. Denies: Hx Hepatitis Musculoskeltal Medical History: Denies Hx Arthritis Psychiatric Medical History: Reports: Hx Depression Infectious Medical History: Reports: Hx C-Diff, Hx MRSA. Denies: Hx Hepatitis Past Surgical History: Reports: Other - Left chest tube insertion. - Immunizations Hx Diphtheria, Pertussis, Tetanus Vaccination: Yes Review of Systems - Review of Systems Gastrointestinal: Rectal bleeding Physical Exam - Vital signs Vitals: Temp Pulse Resp Pulse Ox 98.1 F 95 24 H 92 10/17/16 19:01 10/17/16 19:01 10/17/16 19:01 10/17/16 19:01 - Cardiovascular Rhythm: Regular Heart sounds: Normal auscultation Course - Vital Signs Vital signs: Temp Pulse Resp BP Pulse Ox 98.1 F 95 24 H 92 10/17/16 19:01 10/17/16 19:01 10/17/16 19:01 10/17/16 19:01
[2016-10-17 19:47] LABS: ABSOLUTE EOSINOPHILS # (AUTO) 0.2 10^3/uL (0.0-0.6); ABSOLUTE LYMPHOCYTES (AUTO) 1.4 10^3/uL (0.5-4.7); ABSOLUTE MONOCYTES (AUTO) 1.3 10^3/uL (0.1-1.4); ABSOLUTE NEUT (AUTO) 12.5 10^3/uL (1.7-8.2); BASOPHILS % (AUTO) 0.2 % (0-2); EOSINOPHILS % (AUTO) 1.5 % (0-6); HEMOGLOBIN 14.3 g/dL (13.5-17.0); HGB HCT DIFFERENCE -1.1; LYMPHOCYTES % (AUTO) 8.7 % (13-45); MEAN CORPUSCULAR HEMOGLOBIN 30.1 pg (27.0-33.4); MEAN CORPUSCULAR HGB CONC 32.4 g/dL (32.0-36.0); MEAN CORPUSCULAR VOLUME 93 fl (80-97); MONOCYTES % (AUTO) 8.6 % (3-13); RED BLOOD COUNT 4.73 10^6/uL (4.35-5.55); WHITE BLOOD COUNT 15.5 10^3/uL (4.0-10.5)
[2016-10-17] MEDS ORDERED: ONDANSETRON 4 MG TAB.RAPDIS PO ONE (19:52)
[2016-10-17 19:59] LABS: ALANINE AMINOTRANSFERASE 46 U/L (21-72); ALBUMIN 2.8 g/dL (3.5-5.0); ALKALINE PHOSPHATASE 197 U/L (38-126); ANION GAP 5 (5-19); ASPARTATE AMINO TRANSFERASE 32 U/L (17-59); BILIRUBIN,DIRECT 0.3 mg/dL (0.0-0.4); BLOOD UREA NITROGEN 23 mg/dL (7-20); CALCIUM 8.4 mg/dL (8.4-10.2); CARBON DIOXIDE 31 mmol/L (22-30); CHLORIDE 104 mmol/L (98-107); CREATININE RESULT 1.17 mg/dL (0.52-1.25); GLUCOSE 79 mg/dL (75-110); LIPASE 327.7 U/L (23-300); POTASSIUM 3.7 mmol/L (3.6-5.0); SODIUM 140.4 mmol/L (137-145); TOTAL PROTEIN 6.5 g/dL (6.3-8.2)
--- NOTE | 2016-10-17 20:09 | ER Document Report ---
ED General - General Chief Complaint: Rectal Bleeding Stated Complaint: STOMACH PAIN Time Seen by Provider: 10/17/16 19:16 Mode of Arrival: Ambulatory Information source: Patient Notes: Patient presents emergency department with complaints of abdominal pain and rectal bleeding. Patient reports that today he has experienced abdominal pain feeling bloated. Reports BM today x 3 that were "red". Patient reports he has had rectal bleeding all week. He reports he was admitted on Tuesday for COPD and CP but left before he had a colonoscopy done. Patient has history of COPD home O2. Reports he is on steroids but did not take them today because he felt like he didn't have a productive cough. Reports he feels like he is now having a productive cough. Reports he is always short of breath and always has some type of chest pain. Reports history of "abscess on his intestines that bust and made him bleed for which he needed a transfusion". Patient is currently taking Coumadin for history of PE. Patient also has a history of CHF diabetes pneumonia cirrhosis of liver as well as CAD and COPD. TRAVEL OUTSIDE OF THE [place] IN LAST 30 DAYS: No - HPI Onset: This afternoon Quality of pain: Achy, Other - bloated Pain Level: 4 Associated symptoms: Nausea Exacerbated by: Denies Relieved by: Denies Similar symptoms previously: Yes Recently seen / treated by doctor: Yes - Related Data Allergies/Adverse Reactions: Heparin Analogues [Heparin Agents] Allergy (Severe, Verified 10/17/16 20:51) Thrombocytopenia heparinoids [Heparinoids] Allergy (Severe, Verified 10/17/16 20:51) Thrombocytopenia codeine [Codeine] Allergy (Unknown, Verified 10/17/16 20:51) GI upset Penicillins Allergy (Unknown, Verified 10/17/16 20:51) Swelling doxycycline Allergy (Verified 10/17/16 20:51) Past Medical History - General Information source: Patient - Social History Smoking Status: Former Smoker Cigarette use (# per day): No Frequency of alcohol use: None Lives with: Family Family History: CAD, Hypertension, Other - CHF Patient has suicidal ideation: No Patient has homicidal ideation: No - Past Medical History Cardiac Medical History: Reports: Hx Congestive Heart Failure - Left ventricular diastolic dysfunction, Hx Coronary Artery Disease, Hx Heart Attack, Hx Pulmonary Embolism Denies: Hx Hypercholesterolemia, Hx Hypertension Pulmonary Medical History: Reports: Hx Asthma, Hx Bronchitis, Hx 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 Denies: Hx Diabetes Mellitus Type 1, Hx Hyperthyroidism, Hx Hypothyroidism Renal/ Medical History: Denies: Hx Peritoneal Dialysis GI Medical History: Reports: Hx Cirrhosis - [place] secondary to alpha-1 antitrypsin deficiency., Hx Gastroesophageal Reflux Disease. Denies: Hx Hepatitis Musculoskeltal Medical History: Denies Hx Arthritis Psychiatric Medical History: Reports: Hx Depression Infectious Medical History: Reports: Hx C-Diff, Hx MRSA. Denies: Hx Hepatitis Past Surgical History: Reports: Other - Left chest tube insertion. - Immunizations Hx Diphtheria, Pertussis, Tetanus Vaccination: Yes Hx Pneumococcal Vaccination: 04/05/14 Review of Systems - Review of Systems Notes: Review HPI for review of systems., All other systems negative Physical Exam - Vital signs Vitals: Temp Pulse Resp Pulse Ox 98.1 F 95 24 H 92 10/17/16 19:01 10/17/16 19:01 10/17/16 19:01 10/17/16 19:01 - Notes Notes: PHYSICAL EXAMINATION: GENERAL: nontoxic looking HEAD: Atraumatic, normocephalic. EYES: Pupils equal round and reactive to light, extraocular movements intact, sclera anicteric, conjunctiva are normal. ENT: nares patent, oropharynx clear without exudates. Moist mucous membranes. NECK: Normal range of motion, supple without lymphadenopathy LUNGS: diminished bilateral a&p,, frequent cough, 02 2l/nc HEART: Regular rate and rhythm without murmurs ABDOMEN: Soft, generalized ttp, ttp umbilical hernia noted EXTREMITIES: Normal range of motion, bilateral lower feet with +1 edema. No cyanosis. NEUROLOGICAL: Cranial nerves grossly intact. Normal sensory/motor exams. PSYCH: Normal mood, normal affect. SKIN: Warm, Dry, normal turgor, no rashes or lesions noted Course - Re-evaluation Re-evalutation: 10/17/16 21:[address] patel per [facility] guidelines, ct abd/pelvis iv advised. 10/17/16 22:29 pt updated on all results Labs unremarkable, CT shows cirrhosis with mild splenomegaly and mild ascites. Patient has been sleeping calmly no distress no vomiting. Patient was instructed on the importance of follow-up with Dr. Connors tomorrow for colonoscopy. He verbalized understanding to all instructions. No abdominal pain on discharge The patient presents with abdominal pain without signs of peritonitis or other life threatening or serious etiology. The patient appears stable for discharge and has been instructed to return immediately if the symptoms worsen in any way or in 8-12 hours if not improved for reevaluation. The patient has been instructed to return if the symptoms worsen or change in any way. - Vital Signs Vital signs: Temp Pulse Resp BP Pulse Ox 98.0 F 101 H 22 H 115/64 93 10/17/16 22:45 10/17/16 22:45 10/17/16 22:45 10/17/16 22:45 10/17/16 22:45 - Laboratory Result Diagrams: 10/17/16 19:24 10/17/16 19:24 Laboratory results interpreted by me: 10/17/16 10/17/16 19:24 19:24 WBC 15.5 H RDW 17.0 H Seg Neutrophils % 81.0 H Lymphocytes % 8.7 L Absolute Neutrophils 12.5 H Carbon Dioxide 31 H BUN 23 H Alkaline Phosphatase 197 H Albumin 2.8 L Lipase 327.7 H - Diagnostic Test Radiology reviewed: Image reviewed, Reports reviewed - Diagnostic report text EXAM DESCRIPTION: CHEST SINGLE VIEW COMPLETED DATE/TIME: 10/17/2016 8:35 pm REASON FOR STUDY: sob cough copd COMPARISON: 10/10/2016 NUMBER OF VIEWS: One view. TECHNIQUE: Single frontal radiographic view of the chest acquired. LIMITATIONS: None. FINDINGS: LUNGS AND PLEURA: Diffuse emphysema with stable areas of scarring in the periphery and in the right hilum. No pleural effusion. Attenuated blood vessels and flattened jaya-diaphragms. MEDIASTINUM AND HILAR STRUCTURES: No masses. Contour normal. HEART AND VASCULAR STRUCTURES : Heart normal in size. Normal vasculature. BONES: No acute findings. HARDWARE : None in the chest. OTHER: No other significant finding. IMPRESSION: COPD. NO ACUTE RADIOGRAPHIC FINDING IN THE CHEST Diagnostic report text EXAM DESCRIPTION: CT ABD/PELVIS WITH IV ONLY COMPLETED DATE/TIME: 10/17/2016 9:57 pm REASON FOR STUDY: abd pain COMPARISON: 05/05/2016 TECHNIQUE: CT scan of the abdomen and pelvis performed using helical scanning technique with dynamic intravenous contrast injection. No oral contrast. Images reviewed with lung, soft tissue, and bone windows. Reconstructed coronal and sagittal MPR images reviewed. Delayed images for evaluation of the urinary system also acquired. All images stored on PACS. All CT scanners at this facility use dose modulation , iterative reconstruction, and/or weight based dosing when appropriate to reduce radiation dose to as low as reasonably achievable (ALARA). [facility]: Dose Right [facility]: CareDose [facility]: Dose Right [facility]: Teradose 4D [facility]: [employer] CONTRAST TYPE AND DOSE: contrast/concentration: Isovue 370.00 mg/ml; Total Contrast Delivered: 91.0 ml; Total Saline Delivered: 70.0 ml RENAL FUNCTION: BUN 23 creatinine 1.2 RADIATION DOSE: Up-to-date CT equipment and radiation dose reduction techniques were employed. CTDIvol: 9.9 - 13.8 mGy. DLP: 1160 mGy -cm.. LIMITATIONS: Patient motion. FINDINGS: LOWER CHEST: COPD. Fibrosis. LIVER: Sub capsular nodularity. No masses or biliary dilatation. SPLEEN: Mild splenomegaly. PANCREAS: No masses. No significant calcifications. No adjacent inflammation or peripancreatic fluid collections. Pancreatic duct not dilated. GALLBLADDER: No identified stones by CT criteria. No inflammatory changes to suggest cholecystitis. ADRENAL GLANDS: No significant masses or asymmetry. RIGHT KIDNEY AND URETER: No solid masses. No significant calcifications. No hydronephrosis or hydroureter. LEFT KIDNEY AND URETER: No solid masses. No significant calcifications. No hydronephrosis or hydroureter. AORTA AND VESSELS: No aneurysm. RETROPERITONEUM: No retroperitoneal adenopathy, hemorrhage or masses. BOWEL AND PERITONEAL CAVITY: Diverticulosis. No obstruction. Small amount of ascites. No free air. APPENDIX: Normal. PELVIS: No mass or free fluid. Normal bladder. ABDOMINAL WALL: Umbilical hernia containing fat. BONES: No significant or acute findings. OTHER: No other significant finding. IMPRESSION: 1. Cirrhotic changes in the liver. Mild splenomegaly. Trace ascites Discharge - Discharge Clinical Impression: Abdominal pain, Rectal bleeding, Ascites Condition: Stable Disposition: HOME, SELF-CARE Instructions: Abdominal Pain ([facility]), Rectal Bleeding, Unclear Cause ([facility]), Antinausea Medication ([facility]) Additional Instructions: *You have been evaluated for abdominal pain *Take medication as prescribed for nausea *Follow up with Sadie Magallon tomorrow, Dr Quintanilla tomorrow to schedule a colonoscopy *Return to ED for worsening condition, changes, needs *Return to ED if not better in 24 hours Referrals: ELSA QUINTANILLA MD [ACTIVE STAFF] - Follow up tomorrow SADIE MAGALLON NP [COMMUNITY BASED STAFF] - Follow up tomorrow
--- NOTE | 2016-10-17 20:56 | RADIOLOGY REPORT (SQ) ---
EXAM DESCRIPTION: CHEST SINGLE VIEW COMPLETED DATE/TIME: 10/17/2016 8:35 pm REASON FOR STUDY: sob cough copd COMPARISON: 10/10/2016 NUMBER OF VIEWS: One view. TECHNIQUE: Single frontal radiographic view of the chest acquired. LIMITATIONS: None. FINDINGS: LUNGS AND PLEURA: Diffuse emphysema with stable areas of scarring in the periphery and in the right hilum. No pleural effusion. Attenuated blood vessels and flattened jaya-diaphragms. MEDIASTINUM AND HILAR STRUCTURES: No masses. Contour normal. HEART AND VASCULAR STRUCTURES: Heart normal in size. Normal vasculature. BONES: No acute findings. HARDWARE: None in the chest. OTHER: No other significant finding. IMPRESSION: COPD. NO ACUTE RADIOGRAPHIC FINDING IN THE CHEST. TECHNICAL DOCUMENTATION: JOB ID: [id number] [employer]- All Rights Reserved
--- NOTE | 2016-10-17 22:15 | RADIOLOGY REPORT (SQ) ---
EXAM DESCRIPTION: CT ABD/PELVIS WITH IV ONLY COMPLETED DATE/TIME: 10/17/2016 9:57 pm REASON FOR STUDY: abd pain COMPARISON: 05/05/2016 TECHNIQUE: CT scan of the abdomen and pelvis performed using helical scanning technique with dynamic intravenous contrast injection. No oral contrast. Images reviewed with lung, soft tissue, and bone windows. Reconstructed coronal and sagittal MPR images reviewed. Delayed images for evaluation of the urinary system also acquired. All images stored on PACS. All CT scanners at this facility use dose modulation, iterative reconstruction, and/or weight based d osing when appropriate to reduce radiation dose to as low as reasonably achievable (ALARA). [facility]: Dose Right [facility]: CareDose [facility]: Dose Right [facility]: Teradose 4D [facility]: [employer] CONTRAST TYPE AND DOSE: contrast/concentration: Isovue 370.00 mg/ml; Total Contrast Delivered: 91.0 ml; Total Saline Delivered: 70.0 ml RENAL FUNCTION: BUN 23 creatinine 1.2 RADIATION DOSE: Up-to-date CT equipment and radiation dose reduction techniques were employed. CTDIv ol: 9.9 - 13.8 mGy. DLP: 1160 mGy-cm.. LIMITATIONS: Patient motion. FINDINGS: LOWER CHEST: COPD. Fibrosis. LIVER: Sub capsular nodularity. No masses or biliary dilatation. SPLEEN: Mild splenomegaly. PANCREAS: No masses. No significant calcifications. No adjacent inflammation or peripancreatic fluid collections. Pancreatic duct not dilated. GALLBLADDER: No identified stones by CT criteria. No inflammatory changes to suggest cholecystitis. ADRENAL GLANDS: No significant masses or asymmetry. RIGHT KIDNEY AND URETER: No solid masses. No significant calcifications. No hydronephrosis or hyd roureter. LEFT KIDNEY AND URETER: No solid masses. No significant calcifications. No hydronephrosis or hydr oureter. AORTA AND VESSELS: No aneurysm. RETROPERITONEUM: No retroperitoneal adenopathy, hemorrhage or masses. BOWEL AND PERITONEAL CAVITY: Diverticulosis. No obstruction. Small amount of ascites. No free air. APPENDIX: Normal. PELVIS: No mass or free fluid. Normal bladder. ABDOMINAL WALL: Umbilical hernia containing fat. BONES: No significant or acute findings. OTHER: No other significant finding. IMPRESSION: 1. Cirrhotic changes in the liver. Mild splenomegaly. Trace ascites. TECHNICAL DOCUMENTATION: JOB ID: [id number] Quality ID # [id number]: Final reports with documentation of one or more dose reduction techniques (e.g., Au tomated exposure control, adjustment of the mA and/or kV according to patient size, use of iterative reconstruction technique) 2010 [employer]- All Rights Reserved
[2016-10-17] MEDS ORDERED: ONDANSETRON ODT 4 MG TAB (6 TAB/DSPK) PO PRN (22:28)
[2016-10-17 22:54] VITALS: BP 115/64
== END 2016-10-17 22:50 | disposition home or self-care (01) ==
LOC: ER 18:46
DX: K62.5 Hemorrhage of anus and rectum (principal); K74.60 Unspecified cirrhosis of liver; R18.8 Other ascites; R16.1 Splenomegaly, not elsewhere classified; R10.9 Unspecified abdominal pain; R10.817 Generalized abdominal tenderness; R11.0 Nausea; R05 Cough; K42.9 Umbilical hernia without obstruction or gangrene; R07.9 Chest pain, unspecified; E11.9 Type 2 diabetes mellitus without complications; I25.10 Atherosclerotic heart disease of native coronary artery without angina pectoris; E88.01 Alpha-1-antitrypsin deficiency; J44.9 Chronic obstructive pulmonary disease, unspecified; R06.02 Shortness of breath; Z99.81 Dependence on supplemental oxygen; Z88.8 Allergy status to other drugs, medicaments and biological substances; Z79.899 Other long term (current) drug therapy; Z87.19 Personal history of other diseases of the digestive system; Z88.5 Allergy status to narcotic agent; Z88.0 Allergy status to penicillin; Z88.1 Allergy status to other antibiotic agents; I25.2 Old myocardial infarction; Z86.711 Personal history of pulmonary embolism; Z86.14 Personal history of Methicillin resistant Staphylococcus aureus infection; Z87.891 Personal history of nicotine dependence
CPT/HCPCS: 99284; 86900; 86901; 36415; 86850; 83690; 85025; 85730; 82272; 80053; 71010; 74177; S0119

== ENCOUNTER 2016-10-29 08:36 | Day surgery (SDC) | payer OTHER ==
[~2016-10-29 08:36] MED LIST: LIDOCAINE 0.5% INJ-PF (5 MG/ML) 50 ML SDV SUBCUT PRN
[2016-10-29] MEDS ORDERED: PROPOFOL INJ 200 MG/20 ML VIAL IV ONE (10:10)
[2016-10-29] MEDS ORDERED: MIDAZOLAM 2 MG/2 ML INJ ONE (10:10)
--- NOTE | 2016-10-29 10:48 | Operative Report ---
Operative Report DATE OF SURGERY: 10/29/16 Operative Report: The risks, benefits and alternatives of the procedure including risks of bleeding, perforation requiring surgery are explained to the patient detail and informed consent was obtained. Patient was taken back to the operating room and placed in the left, lateral decubital position. Timeout was called. Propofol medications administered. A rectal examination is done which did not reveal any masses, tears or fissures. An Olympus video scope was inserted into the patient's rectum. It is carefully guided all the way to the cecum. The cecum was identified by the usual anatomical landmarks including the ileocecal valve as well as the appendiceal office. Photodocumentation was obtained. Prep is good. The scope was then sequentially pulled back via the various segments of the colon including the ascending colon, hepatic flexure, transverse colon, splenic flexure, descending colon and finally to the rectosigmoid portions of the colon. Retroflexion maneuver was performed. PREOPERATIVE DIAGNOSIS: Abdominal pain, change in bowel habits POSTOPERATIVE DIAGNOSIS: Diverticulosis. Internal hemorrhoids. Polyp in the splenic flexure that was ablated in situ OPERATION: Colonoscopy with ablation SURGEON: ELSA ABDALLA ANESTHESIA: LMAC TISSUE REMOVED OR ALTERED: None. COMPLICATIONS: None. ESTIMATED BLOOD LOSS: None. INTRAOPERATIVE FINDINGS: As described above. PROCEDURE: Patient tolerated the procedure well. No immediate postprocedure complications are noted. Patient discharged in good condition. Discharge date 10/29/2016. Discharge diet: Regular. Discharge activity: Regular. Can resume all medications. 2-3 week follow-up to discuss findings. Patient is instructed to call the office should there be any further problems or questions. 5 year surveillance colonoscopy.
[2016-10-29] MEDS ORDERED: METOCLOPRAMIDE HCL INJ/PF 10 MG/2 ML SDV ONE (11:13)
[2016-10-29] MEDS ORDERED: LIDOCAINE 2% INJ-PF (20 MG/ML) 10 ML AMPUL ONE (11:13)
[2016-10-29] MEDS ORDERED: GLYCOPYRROLATE INJ 0.4 MG/2 ML VIAL ONE (11:13)
[2016-10-29] MEDS ORDERED: ONDANSETRON HCL INJ/PF 4 MG/2 ML SDV ONE (11:13)
[2016-10-29] MEDS ORDERED: DEXTROSE 5%-1/2 NORMAL SALINE 1,000 ML IV PRN (11:42)
[2016-10-29 15:12] VITALS: BP 96/57
== END 2016-10-29 13:20 | disposition home or self-care (01) ==
LOC: END 08:36
PROVIDERS: ATTEND Internal Medicine Gastroenterology
PROC: 0D5L8ZZ Destruction of Transverse Colon, Via Natural or Artificial Opening Endoscopic (ICD-10-PCS; principal; 2016-10-29 10:30)
DX: D12.3 Benign neoplasm of transverse colon (principal); K62.5 Hemorrhage of anus and rectum; K57.30 Diverticulosis of large intestine without perforation or abscess without bleeding; K64.8 Other hemorrhoids; J45.909 Unspecified asthma, uncomplicated; M19.90 Unspecified osteoarthritis, unspecified site; E11.9 Type 2 diabetes mellitus without complications; I51.9 Heart disease, unspecified; Z79.899 Other long term (current) drug therapy; Z79.51 Long term (current) use of inhaled steroids
CPT/HCPCS: 45388; 82962; J2250; J2765; J2405; J2704; J3490; 810

== ENCOUNTER 2016-11-07 15:21 | Emergency (ER) | payer OTHER ==
--- NOTE | 2016-11-07 16:01 | ER Document Report ---
ED General - General Mode of Arrival: Ambulatory Information source: Patient TRAVEL OUTSIDE OF THE [place] IN LAST 30 DAYS: No - HPI Onset: Other - Refer to HPI notes <AKANKSHA KRISHNAN - Last Filed: 11/07/16 18:05> <ASHLEY WANG - Last Filed: 11/07/16 21:48> - General Stated Complaint: CHEST PAIN Time Seen by Provider: 11/07/16 15:48 Notes: Patient is a 61-year-old male presented to the emergency department for abdominal pain, chest pain and nausea 2 days. Patient has had a decreased appetite and shortness of breath. Patient states that he becomes very short of breath with activity and walking. Patient also has had a cough for the past 3- 4 days with green and yellow sputum. Patient also noticed some swelling to his lower extremities bilaterally. Patient's spouse contacted Dr. Nixon who told them to come to the emergency department. Patient is on 2 L of oxygen at home. Patient is hypotensive as well. Patient has a history of CHF, CAD, COPD, type 2 diabetes mellitus, and is taking Coumadin for a previous pulmonary embolism. Patient was last evaluated in this emergency department on 10/17/2016 for rectal bleeding and he was admitted on 10/10/2016 for a COPD exacerbation. Patient's primary care physician is Dr. Nixon. 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 He also reports nauseousness and abdominal pain for the past 2 days which is getting worse. He had a colonoscopy about a week ago and has not been told the results. He also reports an occasional cough which is rarely productive of green to yellow sputum over the past 3-4 days. He is reporting an increase in the swelling to his feet and ankles. He does have a history of CHF and reported left ventricle dysfunction, however an echo done in June of this year showed an ejection fraction of 60%. He is on Coumadin for prior DVT. The patient is somewhat vague about his abdominal pain but states it is not the chronic umbilical hernia pain that he has. He also states that he has not been able to eat or drink for couple of days. On 10/17/2016 the patient was seen here complaining of rectal bleeding, he had a double contrast CT scan abdomen pelvis which did not show any acute changes, only his mild splenomegaly and chronic hepatic cirrhosis with trace ascites. He is adamant there is something new or different going on in his abdomen today. He states his pulse ox went very low this morning, at this time it is 96% on his normal nasal cannula oxygen, but he feels it is incorrect reading. The patient additionally states that if he goes home he will be right back because when he "gets this way" he always gets admitted or returns if he is sent home. At triage he had a blood pressure recorded of 88/55, in the exam room the systolic pressure was in the 90s before IV fluids. Review of several prior visits shows systolic pressures in the low 90s is not unusual. He does not appear to be symptomatic from the low blood pressure. The colonoscopy operative report was pulled up and shows a postoperative diagnosis of diverticulosis, internal hemorrhoids, and polyp in the splenic flexure that was ablated in situ. (ASHLEY WANG) - Related Data Allergies/Adverse Reactions: Heparin Analogues [Heparin Agents] Allergy (Severe, Verified 11/07/16 16:55) Thrombocytopenia heparinoids [Heparinoids] Allergy (Severe, Verified 11/07/16 16:55) Thrombocytopenia codeine [Codeine] Allergy (Unknown, Verified 11/07/16 16:55) GI upset Penicillins Allergy (Unknown, Verified 11/07/16 16:55) Swelling doxycycline Allergy (Verified 11/07/16 16:55) Past Medical History - General Information source: Patient - Social History Smoking Status: Former Smoker Cigarette use (# per day): No Chew tobacco use (# tins/day): No Smoking Education Provided: No Family History: CAD, Hypertension, Other - CHF Patient has suicidal ideation: No Patient has homicidal ideation: No - Past Medical History Cardiac Medical History: Reports: Hx Congestive Heart Failure - Left ventricular diastolic dysfunction, Hx DVT, Hx Heart Attack, Hx Hypertension - LOW, Hx Pulmonary Embolism Pulmonary Medical History: Reports: Hx COPD - 2L [place], Hx Pneumonia Endocrine Medical History: Reports: Hx Diabetes Mellitus Type 2 GI Medical History: Reports: Hx Cirrhosis - [place] secondary to alpha-1 antitrypsin deficiency., Hx Gastroesophageal Reflux Disease Musculoskeltal Medical History: Reports Hx Arthritis Psychiatric Medical History: Reports: Hx Depression Infectious Medical History: Reports: Hx C-Diff, Hx MRSA Past Surgical History: Reports: Other - Left chest tube insertion. - Immunizations Hx Diphtheria, Pertussis, Tetanus Vaccination: Yes Hx Pneumococcal Vaccination: 04/05/14 <AKANKSHA KRISHNAN - Last Filed: 11/07/16 18:05> Review of Systems - Review of Systems Constitutional: No symptoms reported EENT: No symptoms reported Cardiovascular: See HPI, Chest pain Respiratory: No symptoms reported Gastrointestinal: No symptoms reported Genitourinary: No symptoms reported Male Genitourinary: No symptoms reported Musculoskeletal: No symptoms reported Skin: No symptoms reported Hematologic/Lymphatic: No symptoms reported Neurological/Psychological: No symptoms reported -: Yes All other systems reviewed and negative <AKANKSHA KRISHNAN - Last Filed: 11/07/16 18:05> Physical Exam <AKANKSHA KRISHNAN - Last Filed: 11/07/16 18:05> <ASHLEY WANG - Last Filed: 11/07/16 21:48> - Vital signs Vitals: Resp 30 H 11/07/16 15:45 - Notes Notes: GENERAL: Alert, interacts well, appears uncomfortable. Moderate distress. HEAD: Normocephalic, atraumatic. EYES: Appear normal. Pupils equal, round, and reactive to light. ENT: Dry mucus membranes, tongue midline, nasal cannula in place. NECK: Full range of motion. Supple. Trachea midline. LUNGS: Coarse breath sounds bilaterally. No respiratory distress. HEART: Regular rate and rhythm. No murmurs, gallops, or rubs. ABDOMEN: Soft, reducible umbilical hernia which is chronically tender with palpation, no other abdominal tenderness. Non-distended. Normal bowel sounds. EXTREMITIES: Moves all 4 extremities spontaneously. Normal strength. Soft edema to the ankles bilaterally. NEUROLOGICAL: Alert and oriented x3. Normal speech. No focal neurological deficits. GSC 15. PSYCH: Normal affect, normal mood. SKIN: Warm, dry, normal turgor. No rashes or lesions noted. (AKANKSHA KRISHNAN) Course - Laboratory Result Diagrams: 11/07/16 16:02 11/07/16 16:02 <AKANKSHA KRISHNAN - Last Filed: 11/07/16 18:05> - Laboratory Result Diagrams: 11/07/16 16:02 11/07/16 16:02 - Diagnostic Test Radiology reviewed: Image reviewed, Reports reviewed - Noncontrast CT scan of the abdomen pelvis shows splenomegaly, trace free fluid, hepatic cirrhosis, all unchanged compared to the CT scan on 10/17/2016. - EKG Interpretation by Me EKG shows normal: Sinus rhythm, Intervals, QRS Complexes, ST-T Waves. abnormal : [place] - Borderline right axis deviation Rate: Tachycardia - 106 When compared to previous EKG there are: No significant change - Transfer of Care Care transferred to following provider: Dr. Hernandez <ASHLEY WANG - Last Filed: 11/07/16 21:48> - Re-evaluation Re-evalutation: 11/07/16 20:[address] scan of the abdomen and pelvis is not different from the CT scan done about 3 weeks ago with respect to the splenomegaly, trace edema, or cirrhosis. 11/07/16 21:33 I was eventually able to discuss the case with the hospitalist production support specialist who knows the patient well. He states there are no ICU beds, and if his blood pressure drops then he will not have a critical care bed to move the patient to so he requests that I transfer the patient. I discussed with the patient the current situation, and he is adamant about not being transferred. He states he will go home and come back tomorrow when another hospitalist is here. He has not had a breathing treatment since this morning and normally does them 4 times a day so he will be given a breathing treatment now before he signs out AMA and goes home. I asked him about prednisone usage, and he states he does not want to take any prednisone. At this time his pulse ox remains at 95% to 96%. He states it did drop into the low 80s when he got up to urinate. (ASHLEY WANG) - Vital Signs Vital signs: Temp Pulse Resp BP Pulse Ox 108 H 17 104/69 98 11/07/16 18:19 11/07/16 20:01 11/07/16 20:00 11/07/16 20:01 11/07/16 19:57 Patient's lab work is unremarkable with an INR of 2.13, urine specific gravity 1.012, a BUN of 12. This suggests that he does drink more fluids then he reported. His albumin is 2.6 which is the reason for his edema. (ASHLEY WANG ) - Laboratory Laboratory results interpreted by me: 11/07/16 11/07/16 11/07/16 16:02 16:02 16:02 Hgb 13.3 L RDW 16.8 H Plt Count 135 L Lymphocytes % 12.8 L Eosinophils % 8.0 H PT 25.0 H Sodium 136.7 L Creatinine 1.42 H Est GFR (Non-Af Amer) 51 L Calcium 7.9 L Alkaline Phosphatase 195 H Albumin 2.6 L - Transfer of Care Notes: 11/07/16 21:41 The patient is to receive an albuterol and Atrovent breathing treatment, then will sign out AMA and go home. (ASHLEY WANG) Discharge <AKANKSHA KRISHNAN - Last Filed: 11/07/16 18:05> <ASHLEY WANG - Last Filed: 11/07/16 21:48> - Discharge Clinical Impression: Dyspnea on exertion, Pulmonary fibrosis Abdominal pain Qualifiers: Abdominal location: unspecified location Qualified Code(s): R10.9 - Unspecified abdominal pain Hepatic cirrhosis Qualifiers: Hepatic cirrhosis type: congenital cirrhosis Qualified Code(s): P78.81 - Congenital cirrhosis (of liver) Condition: Fair Disposition: AGAINST MEDICAL ADVICE Additional Instructions: You have elected to leave and go home AGAINST MEDICAL ADVICE rather than be transferred to another facility as requested by the on-call hospitalist. Continue your regular medications. Return to the emergency room if any new or worsening symptoms. Return to the emergency room if not improving. Referrals: ALFA GRANGER, FIELD SALES REPRESENTATIVE [Primary Care Provider] - Follow up as needed Scribe Attestation: 11/07/16 20:16 I personally performed the services described in the documentation, reviewed and edited the documentation which was dictated to the scribe in my presence, and it accurately records my words and actions. (ASHLEY WANG) Scribe Documentation - Scribe Written by Chris:: Chris Stanford, 11/07/2016 16:23 acting as scribe for :: Osbaldo <AKANKSHA KRISHNAN - Last Filed: 11/07/16 18:05>
[2016-11-07] MEDS ORDERED: NORMAL SALINE 1000 ML 500 ML IV ONE (16:04)
[2016-11-07 16:15] LABS: ABSOLUTE BASOPHILS # (AUTO) 0.1 10^3/uL (0.0-0.2); ABSOLUTE EOSINOPHILS # (AUTO) 0.5 10^3/uL (0.0-0.6); ABSOLUTE LYMPHOCYTES (AUTO) 0.8 10^3/uL (0.5-4.7); ABSOLUTE MONOCYTES (AUTO) 0.6 10^3/uL (0.1-1.4); ABSOLUTE NEUT (AUTO) 4.5 10^3/uL (1.7-8.2); BASOPHILS % (AUTO) 0.8 % (0-2); HEMATOCRIT 40.9 % (37.9-51.0); HEMOGLOBIN 13.3 g/dL (13.5-17.0); LYMPHOCYTES % (AUTO) 12.8 % (13-45); MEAN CORPUSCULAR HGB CONC 32.5 g/dL (32.0-36.0); MEAN CORPUSCULAR VOLUME 92 fl (80-97); MONOCYTES % (AUTO) 9.2 % (3-13); RED BLOOD COUNT 4.43 10^6/uL (4.35-5.55); RED CELL DISTRIBUTION WIDTH 16.8 % (11.5-14.0); SEGMENTED NEUTROPHILS % (AUTO) 69.2 % (42-78); WHITE BLOOD COUNT 6.5 10^3/uL (4.0-10.5)
[2016-11-07 16:31] LABS: ALANINE AMINOTRANSFERASE 36 U/L (21-72); ALBUMIN 2.6 g/dL (3.5-5.0); ALKALINE PHOSPHATASE 195 U/L (38-126); ASPARTATE AMINO TRANSFERASE 41 U/L (17-59); BILIRUBIN,DIRECT 0.4 mg/dL (0.0-0.4); BILIRUBIN,TOTAL 0.8 mg/dL (0.2-1.3); BLOOD UREA NITROGEN 12 mg/dL (7-20); CALCIUM 7.9 mg/dL (8.4-10.2); CARBON DIOXIDE 28 mmol/L (22-30); CHLORIDE 104 mmol/L (98-107); CREATINE KINASE 86 U/L (55-170); CREATININE RESULT 1.42 mg/dL (0.52-1.25); GLUCOSE 101 mg/dL (75-110); POTASSIUM 4.4 mmol/L (3.6-5.0); TOTAL PROTEIN 6.7 g/dL (6.3-8.2)
[2016-11-07 16:39] LABS: SODIUM 136.7 mmol/L (137-145)
[2016-11-07 16:43] LABS: CREATINE KINASE MB 0.94 ng/mL (<4.55)
[2016-11-07 16:44] LABS: TROPONIN I < 0.012 ng/mL
[2016-11-07 16:48] LABS: ANION GAP 5 (5-19)
[2016-11-07 17:24] LABS: APPEARANCE,URINE CLEAR; BILIRUBIN,URINE NEGATIVE (NEGATIVE); GLUCOSE, URINE NEGATIVE (NEGATIVE); KETONES,URINE NEGATIVE (NEGATIVE); LEUKOCYTE ESTERASE,URINE NEGATIVE (NEGATIVE); NITRITE,URINE NEGATIVE (NEGATIVE); PROTEIN,URINE NEGATIVE (NEGATIVE); URINE SPECIFIC GRAVITY 1.012; UROBILINOGEN,URINE NEGATIVE mg/dL (<2.0)
--- NOTE | 2016-11-07 20:34 | RADIOLOGY REPORT (SQ) ---
EXAM DESCRIPTION: CT LTD RENAL STONE PROTOCOL ON COMPLETED DATE/TIME: 11/07/2016 8:18 pm REASON FOR STUDY: abd pain COMPARISON: 10/17/2016 TECHNIQUE: CT scan of the abdomen and pelvis performed without intravenous or oral contrast. Images reviewed with lung, soft tissue, and bone windows. Reconstructed coronal and sagittal MPR images revi ewed. All images stored on PACS. All CT scanners at this facility use dose modulation, iterative reconstruction, and/or weight based d osing when appropriate to reduce radiation dose to as low as reasonably achievable (ALARA). [facility]: Dose Right [facility]: CareDose [facility]: Dose Right [facility]: Teradose 4D [facility]: [employer] RADIATION DOSE: Up-to-date CT equipment and radiation dose reduction techniques were employed. CTDIv ol: 12.8 mGy. DLP: 685 mGy-cm.mGy. LIMITATIONS: None. FINDINGS: LOWER CHEST: Severe bullous changes with areas of scar. NON-CONTRASTED LIVER, SPLEEN, ADRENALS: Slightly nodular liver contours. Spleen slightly enlarged at 14 cm craniocaudal. No adrenal mass. PANCREAS: No masses. No peripancreatic inflammatory changes. GALLBLADDER: No identified stones by CT criteria. No inflammatory changes to suggest cholecystitis. RIGHT KIDNEY AND URETER: No solid masses. No significant calcification. No hydronephrosis or hydroure ter. LEFT KIDNEY AND URETER: Minimal punctate lower pole stone. No hydronephrosis. AORTA AND RETROPERITONEUM: No aneurysm. No retroperitoneal masses or adenopathy. BOWEL AND PERITONEAL CAVITY: Diverticulosis in the distal colon. No focal diverticulitis suggested. Trace perihepatic fluid. APPENDIX: Normal. PELVIS, BLADDER, AND ABDOMINAL WALL:No pelvic free fluid or bladder mass. Small fat containing umbil ical hernia. BONES: No significant findings. OTHER: No other significant finding. IMPRESSION: 1. Similar findings compared to prior. Splenomegaly and trace ascites. Diverticulosis without suggestion of active diverticulitis. Minimal nonobstructive left nephrolithiasis. TECHNICAL DOCUMENTATION: JOB ID: [id number] Quality ID # [id number]: Final reports with documentation of one or more dose reduction techniques (e.g., Au tomated exposure control, adjustment of the mA and/or kV according to patient size, use of iterative reconstruction technique) 2010 [employer]- All Rights Reserved
[2016-11-07] MEDS ORDERED: IPRATROPIUM/ALBUTEROL 0.5-2.5 MG/3 ML AMPUL NEB ONE (21:34)
--- NOTE | 2016-11-07 21:55 | EKG REPORT ---
SEVERITY:- OTHERWISE NORMAL ECG - SINUS TACHYCARDIA WITH PVC BORDERLINE RIGHT AXIS DEVIATION : Confirmed by: Tamir Baron MD 07-Nov-2016 21:55:00
[2016-11-07 22:24] VITALS: BP 104/67
== END 2016-11-07 22:07 | disposition left against medical advice (07) ==
LOC: ER 15:21
DX: J84.10 Pulmonary fibrosis, unspecified (principal); R06.00 Dyspnea, unspecified; R07.9 Chest pain, unspecified; R10.9 Unspecified abdominal pain; R11.0 Nausea; R63.0 Anorexia; Z99.81 Dependence on supplemental oxygen; M79.89 Other specified soft tissue disorders; Z87.891 Personal history of nicotine dependence
CPT/HCPCS: 93005; 94640; 99285; 36415; 87040; 82553; 82550; 83735; 85025; 85610; 80053; 81001; 84484; 76380; 93010; J7030; J7620

== ENCOUNTER 2016-11-28 11:15 | Inpatient (IN) | payer OTHER, MEDICARE ==
[2016-11-28] MEDS ORDERED: IPRATROPIUM/ALBUTEROL 0.5-2.5 MG/3 ML AMPUL NEB ONE ×3 (13:56→13:57)
--- NOTE | 2016-11-28 13:56 | ER Document Report ---
ED General - General Chief Complaint: Breathing Difficulty Stated Complaint: DIFFICULTY BREATHING Mode of Arrival: Ambulatory Information source: Patient Notes: 61-year-old male history of COPD presents with complaints of shortness breath difficulty breathing. Patient is on baseline 2 L nasal cannula, notes when he ambulated today to go to the bathroom his O2 sats decreased down to 67%. Patient notes symptoms have worsened over the past week admits to nonproductive cough TRAVEL OUTSIDE OF THE [place] IN LAST 30 DAYS: No - HPI Onset: Other Onset/Duration: Persistent Quality of pain: No pain Severity: Moderate Pain Level: 2 Associated symptoms: Nonproductive cough, Shortness of breath Exacerbated by: Walking Relieved by: Denies Similar symptoms previously: Yes Recently seen / treated by doctor: Yes - Related Data Allergies/Adverse Reactions: Heparin Analogues [Heparin Agents] Allergy (Severe, Verified 11/28/16 11:50) Thrombocytopenia heparinoids [Heparinoids] Allergy (Severe, Verified 11/28/16 11:50) Thrombocytopenia codeine [Codeine] Allergy (Unknown, Verified 11/28/16 11:50) GI upset Penicillins Allergy (Unknown, Verified 11/28/16 11:50) Swelling doxycycline Allergy (Verified 11/28/16 11:50) Past Medical History - Social History Smoking Status: Former Smoker Cigarette use (# per day): No Chew tobacco use (# tins/day): No Smoking Education Provided: No Family History: CAD, Hypertension, Other - CHF Patient has suicidal ideation: No Patient has homicidal ideation: No - Past Medical History Cardiac Medical History: Reports: Hx Congestive Heart Failure - Left ventricular diastolic dysfunction, Hx DVT, Hx Heart Attack, Hx Hypertension - LOW, Hx Pulmonary Embolism Denies: Hx Coronary Artery Disease, Hx Hypercholesterolemia Pulmonary Medical History: Reports: Hx COPD - 2L [place], Hx Pneumonia Denies: Hx Asthma, Hx Bronchitis, Hx Sleep Apnea, Hx Tuberculosis Neurological Medical History: Denies: Hx Cerebrovascular Accident, Hx Seizures Endocrine Medical History: Reports: Hx Diabetes Mellitus Type 2. Denies: Hx Diabetes Mellitus Type 1, Hx Hyperthyroidism, Hx Hypothyroidism Renal/ Medical History: Denies: Hx Peritoneal Dialysis GI Medical History: Reports: Hx Cirrhosis - [place] secondary to alpha-1 antitrypsin deficiency., Hx Gastroesophageal Reflux Disease. Denies: Hx Hepatitis Musculoskeltal Medical History: Reports Hx Arthritis Psychiatric Medical History: Reports: Hx Depression Infectious Medical History: Reports: Hx C-Diff, Hx MRSA. Denies: Hx Hepatitis Past Surgical History: Reports: Other - Left chest tube insertion. - Immunizations Hx Diphtheria, Pertussis, Tetanus Vaccination: Yes Hx Pneumococcal Vaccination: 04/05/14 Review of Systems - Review of Systems Notes: REVIEW OF SYSTEMS: CONSTITUTIONAL : Denies fever, chills, or sweats. Denies recent illness. EENT: Denies eye, ear, throat, or mouth pain or symptoms. Denies nasal or sinus congestion or discharge. Denies throat, tongue, or mouth swelling or difficulty swallowing. CARDIOVASCULAR: Denies chest pain. Denies palpitations or racing or irregular heart beat. Denies ankle edema. RESPIRATORY: Admits to shortness breath difficulty breathing GASTROINTESTINAL: Denies abdominal pain or distention. Denies nausea, vomiting , or diarrhea. Denies blood in vomitus, stools, or per rectum. Denies black, tarry stools. Denies constipation. GENITOURINARY: Denies difficulty urinating, painful urination, burning, frequency, blood in urine, or discharge. MUSCULOSKELETAL: Denies back or neck pain or stiffness. Denies joint pain or swelling. SKIN: Denies rash, lesions or sores. HEMATOLOGIC : Denies easy bruising or bleeding. LYMPHATIC: Denies swollen, enlarged glands. NEUROLOGICAL: Denies confusion or altered mental status. Denies passing out or loss of consciousness. Denies dizziness or lightheadedness. Denies headache. Denies weakness or paralysis or loss of use of either side. Denies problems with gait or speech. Denies sensory loss, numbness, or tingling. Denies seizures. PSYCHIATRIC: Denies anxiety or stress. Denies depression, suicidal ideation, or homicidal ideation. ALL OTHER SYSTEMS REVIEWED AND NEGATIVE. Dictation was performed using [employer] voice recognition software PHYSICAL EXAMINATION: GENERAL: Well-appearing, well-nourished and in no acute distress. HEAD: Atraumatic, normocephalic. EYES: Pupils equal round and reactive to light, extraocular movements intact, sclera anicteric, conjunctiva are normal. ENT: Nares patent, oropharynx clear without exudates. Moist mucous membranes. NECK: Normal range of motion, supple without lymphadenopathy LUNGS: Decreased breath sounds all throughout satting 89% on 2 L at rest HEART: Regular rate and rhythm without murmurs ABDOMEN: Soft, nontender, nondistended abdomen. No guarding, no rebound. No masses appreciated. Musculoskeletal: Normal range of motion, no pitting or edema. No cyanosis. NEUROLOGICAL: Cranial nerves grossly intact. Normal speech, normal gait. Normal sensory, motor exams PSYCH: Normal mood, normal affect. SKIN: Warm, Dry, normal turgor, no rashes or lesions noted. Physical Exam - Vital signs Vitals: Temp Pulse Resp BP Pulse Ox 98 F 111 H 16 128/81 H 90 L 11/28/16 11:40 11/28/16 11:40 11/28/16 11:40 11/28/16 11:40 11/28/16 11:40 Course - Re-evaluation Re-evalutation: 11/28/16 14:07 Lab work pending patient will be given 3 DuoNeb's ambulated and reevaluated, I expect admission given patient's history - Vital Signs Vital signs: Temp Pulse Resp BP Pulse Ox 98 F 111 H 16 128/81 H 86 L 11/28/16 11:40 11/28/16 11:40 11/28/16 11:40 11/28/16 11:40 11/28/16 13:30 - Laboratory Result Diagrams: 11/28/16 13:34 11/28/16 13:34
[2016-11-28] MEDS ORDERED: METHYLPREDNISOLONE INJ 125 MG/2 ML SDV IV ONE (13:57)
--- NOTE | 2016-11-28 14:23 | RADIOLOGY REPORT (SQ) ---
EXAM DESCRIPTION: CHEST SINGLE VIEW COMPLETED DATE/TIME: 11/28/2016 2:07 pm REASON FOR STUDY: sob COMPARISON: 10/17/2016. NUMBER OF VIEWS: One view. TECHNIQUE: Single frontal radiographic view of the chest acquired. LIMITATIONS: None. FINDINGS: LUNGS AND PLEURA: Emphysematous changes. Chronic scarring. No infiltrates, masses or pne umothorax. No pleural effusion. Attenuated blood vessels and flattened jaya-diaphragms. MEDIASTINUM AND HILAR STRUCTURES: No masses. Contour normal. HEART AND VASCULAR STRUCTURES: Heart normal in size. Normal vasculature. BONES: No acute findings. HARDWARE: None in the chest. OTHER: No other significant finding. IMPRESSION: COPD. EMPHYSEMATOUS CHANGES AND CHRONIC SCARRING. NO ACUTE RADIOGRAPHIC FINDING IN THE CHEST. TECHNICAL DOCUMENTATION: JOB ID: [id number]- All Rights Reserved
[2016-11-28 14:31] LABS: ALANINE AMINOTRANSFERASE 27 U/L (21-72); ALKALINE PHOSPHATASE 191 U/L (38-126); ANION GAP 7 (5-19); ASPARTATE AMINO TRANSFERASE 42 U/L (17-59); BILIRUBIN,DIRECT 0.3 mg/dL (0.0-0.4); BILIRUBIN,TOTAL 0.9 mg/dL (0.2-1.3); BLOOD UREA NITROGEN 16 mg/dL (7-20); CALCIUM 8.3 mg/dL (8.4-10.2); CARBON DIOXIDE 31 mmol/L (22-30); CHLORIDE 102 mmol/L (98-107); CREATINE KINASE 133 U/L (55-170); CREATININE RESULT 1.36 mg/dL (0.52-1.25); GLUCOSE 104 mg/dL (75-110); POTASSIUM 4.3 mmol/L (3.6-5.0); SODIUM 139.5 mmol/L (137-145); TOTAL PROTEIN 7.4 g/dL (6.3-8.2)
[2016-11-28 14:42] LABS: CREATINE KINASE MB 1.64 ng/mL (<4.55)
[2016-11-28 14:43] LABS: TROPONIN I < 0.012 ng/mL
[2016-11-28 15:18] LABS: ABSOLUTE BASOPHILS # (AUTO) 0.1 10^3/uL (0.0-0.2); ABSOLUTE EOSINOPHILS # (AUTO) 0.4 10^3/uL (0.0-0.6); ABSOLUTE LYMPHOCYTES (AUTO) 1.9 10^3/uL (0.5-4.7); ABSOLUTE NEUT (AUTO) 5.5 10^3/uL (1.7-8.2); BASOPHILS % (AUTO) 0.6 % (0-2); EOSINOPHILS % (AUTO) 4.5 % (0-6); HEMATOCRIT 38.9 % (37.9-51.0); HEMOGLOBIN 13.2 g/dL (13.5-17.0); HGB HCT DIFFERENCE 0.7; LYMPHOCYTES % (AUTO) 21.3 % (13-45); MEAN CORPUSCULAR HEMOGLOBIN 29.5 pg (27.0-33.4); MEAN CORPUSCULAR HGB CONC 33.9 g/dL (32.0-36.0); MONOCYTES % (AUTO) 11.5 % (3-13); RED BLOOD COUNT 4.47 10^6/uL (4.35-5.55); RED CELL DISTRIBUTION WIDTH 16.5 % (11.5-14.0); SEGMENTED NEUTROPHILS % (AUTO) 62.1 % (42-78); WHITE BLOOD COUNT 8.9 10^3/uL (4.0-10.5)
[2016-11-28 15:19] LABS: MEAN CORPUSCULAR VOLUME 87 fl (80-97)
[2016-11-28 15:35] LABS: APPEARANCE,URINE CLEAR; BILIRUBIN,URINE NEGATIVE (NEGATIVE); GLUCOSE, URINE NEGATIVE (NEGATIVE); KETONES,URINE NEGATIVE (NEGATIVE); LEUKOCYTE ESTERASE,URINE NEGATIVE (NEGATIVE); NITRITE,URINE NEGATIVE (NEGATIVE); PROTEIN,URINE NEGATIVE (NEGATIVE); URINE SPECIFIC GRAVITY 1.006; UROBILINOGEN,URINE NEGATIVE mg/dL (<2.0)
[2016-11-28] MEDS ORDERED: ONDANSETRON HCL INJ/PF 4 MG/2 ML SDV IV PRN (16:08)
[2016-11-28] MEDS ORDERED: ALBUTEROL SULFATE 0.083% NEB 2.5 MG/3 ML AMPUL NEB PRN (16:08)
[2016-11-28] MEDS ORDERED: ONDANSETRON 4 MG TAB.RAPDIS PO PRN (16:08)
[2016-11-28] MEDS ORDERED: ACETAMINOPHEN 325 MG TABLET PO PRN (16:08)
[2016-11-28] MEDS ORDERED: DEXTROSE 50%-WATER 25 GM/50 ML DISP.SYRIN IV PRN ×2 (16:19)
[2016-11-28] MEDS ORDERED: GLUCAGON,HUMAN RECOMB 1 MG INJ IM PRN (16:19)
[2016-11-28] MEDS ORDERED: DEXTROSE 40% GEL 15 GM TUBE PO PRN ×2 (16:19)
[2016-11-28 16:34] LABS: PROTHROMBIN TIME 20.9 SEC (11.4-15.4)
--- NOTE | 2016-11-28 16:42 | PDOC H&P ---
History of Present Illness Admission Date/PCP: 11/28/16 15:53 ALFA GRANGER NP History of Present Illness: CHATO BRAXTON is a 61 year old male Past Medical History Cardiac Medical History: Reports: Congestive Heart Failure - Left ventricular diastolic dysfunction, DVT, Myocardial Infarction, Hypertension - LOW, Pulmonary Embolism Denies: Coronary Artery Disease, Hyperlipidema Pulmonary Medical History: Reports: Chronic Obstructive Pulmonary Disease (COPD ) - 2L NC, Pneumonia, Other - alpha 1 antitrypsin deficiency Denies: Asthma, Bronchitis, Sleep Apnea, Tuberculosis Neurological Medical History: Denies: Seizures Endocrine Medical History: Reports: Diabetes Mellitus Type 2 Denies: Diabetes Mellitus Type 1, Hyperthyroidism, Hypothyroidism Renal/ Medical History: Reports: Chronic Kidney Disease GI Medical History: Reports: 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 Social History Information Source: Patient Lives with: Spouse/Significant other Smoking Status: Former Smoker Frequency of Alcohol Use: None Hx Recreational Drug Use: No Drugs: None Hx Prescription Drug Abuse: No - Advance Directive Resuscitation Status: Full Code Family History Family History: CAD, Hypertension, Other - CHF Family History: Mother at age 69 and had congestive heart failure diabetes. Mother at an early age from suicide. Parental Family History Reviewed: Yes Children Family History Reviewed: No Sibling(s) Family History Reviewed.: No Medication/Allergy Allergies/Adverse Reactions: Heparin Analogues [Heparin Agents] Allergy (Severe, Verified 11/28/16 11:50) Thrombocytopenia heparinoids [Heparinoids] Allergy (Severe, Verified 11/28/16 11:50) Thrombocytopenia codeine [Codeine] Allergy (Unknown, Verified 11/28/16 11:50) GI upset Penicillins Allergy (Unknown, Verified 11/28/16 11:50) Swelling doxycycline Allergy (Verified 11/28/16 11:50) Review of Systems Constitutional: PRESENT: chills. ABSENT: fever(s), headache(s), weight gain, weight loss Eyes: ABSENT: visual disturbances Ears: ABSENT: hearing changes Cardiovascular: PRESENT: dyspnea on exertion. ABSENT: chest pain, edema, orthropnea, palpitations Respiratory: PRESENT: cough, dyspnea, sputum. ABSENT: hemoptysis Gastrointestinal: ABSENT: abdominal pain, constipation, diarrhea, hematemesis, hematochezia, nausea, vomiting Genitourinary: ABSENT: dysuria, hematuria Musculoskeletal: ABSENT: joint swelling Integumentary: ABSENT: rash, wounds Neurological: ABSENT: abnormal gait, abnormal speech, confusion, dizziness, focal weakness, syncope Psychiatric: ABSENT: anxiety, depression Endocrine: ABSENT: cold intolerance, heat intolerance, polydipsia, polyuria Hematologic/Lymphatic: ABSENT: easy bleeding, easy bruising Physical Exam Vital Signs: Temp Pulse Resp BP Pulse Ox 98 F 111 H 18 95/73 L 93 11/28/16 11:40 11/28/16 11:40 11/28/16 15:01 11/28/16 15:00 11/28/16 15:49 General appearance: PRESENT: no acute distress, well-developed, well-nourished Head exam: PRESENT: atraumatic, normocephalic Eye exam: PRESENT: conjunctiva pink, EOMI, PERRLA. ABSENT: scleral icterus Ear exam: PRESENT: normal external ear exam Mouth exam: PRESENT: moist, tongue midline Neck exam: ABSENT: carotid bruit, JVD, lymphadenopathy, thyromegaly Respiratory exam: PRESENT: clear to auscultation porfirio. ABSENT: rales, rhonchi, wheezes Cardiovascular exam: PRESENT: RRR. ABSENT: diastolic murmur, rubs, systolic murmur Pulses: PRESENT: normal dorsalis pedis pul Vascular exam: PRESENT: normal capillary refill GI/Abdominal exam: PRESENT: normal bowel sounds, soft. ABSENT: distended, guarding, mass, organolmegaly, rebound, tenderness Rectal exam: PRESENT: deferred Extremities exam: PRESENT: pedal edema - Trace edema. ABSENT: calf tenderness, clubbing Neurological exam: PRESENT: alert, awake, oriented to person, oriented to place , oriented to time, oriented to situation, CN II-XII grossly intact. ABSENT: motor sensory deficit Psychiatric exam: PRESENT: appropriate affect, normal mood Skin exam: PRESENT: dry, intact, warm. ABSENT: cyanosis, rash Results Impressions: Chest X-Ray 11/28/16 13:10 IMPRESSION: COPD. EMPHYSEMATOUS CHANGES AND CHRONIC SCARRING. NO ACUTE RADIOGRAPHIC FINDING IN THE CHEST. Assessment & Plan - Diagnosis (1) COPD exacerbation Is this a current diagnosis for this admission?: YesPlan: Has acute COPD exacerbation with wheezing on exam. Will treat with IV steroids , Levaquin, nebulizers and oxygen. Patient does have alpha-1 antitrypsin deficiency. (2) Dbihm-5-nrfzfwgrqda deficiency Is this a current diagnosis for this admission?: Yes (3) ARF (acute renal failure) Qualifiers: Acute renal failure type: unspecified Qualified Code(s): N17.9 - Acute kidney failure, unspecified Is this a current diagnosis for this admission?: YesPlan: Has chronic renal failure stage II. He appears to be euvolemic. We will monitor the creatinine closely (4) BPH (benign prostatic hyperplasia) Qualifiers: Lower urinary tract symptom presence: symptoms absent Qualified Code (s): N40.0 - Benign prostatic hyperplasia without lower urinary tract symptoms Is this a current diagnosis for this admission?: Yes (5) CAD (coronary artery disease) Qualifiers: Coronary Disease-Associated Artery/Lesion type: [place] artery [place] vs. transplanted heart: [place] heart Associated angina: without angina Qualified Code(s): I25.10 - Atherosclerotic heart disease of [place] coronary artery without angina pectoris Is this a current diagnosis for this admission?: YesPlan: Patient denies any chest pain (6) CHF (congestive heart failure) Qualifiers: Congestive heart failure type: diastolic Congestive heart failure chronicity: chronic Qualified Code(s): I50.32 - Chronic diastolic ( congestive) heart failure Is this a current diagnosis for this admission?: YesPlan: Patient has chronic diastolic congestive heart failure (7) Coagulopathy Is this a current diagnosis for this admission?: YesPlan: Patient takes Coumadin for pulmonary embolism. Will check PT and INR today (8) Depression Qualifiers: Depression Type: unspecified Qualified Code(s): F32.9 - Major depressive disorder, single episode, unspecified Is this a current diagnosis for this admission?: Yes (9) Diabetes mellitus type II, controlled Qualifiers: Diabetes mellitus complication status: with unspecified complications Diabetes mellitus terminal system operator insulin use: without terminal system operator use Qualified Code(s): E11.8 - Type 2 diabetes mellitus with unspecified complications; Z79.4 - exterminator (current) use of insulin Is this a current diagnosis for this admission?: Yes (10) Anemia Is this a current diagnosis for this admission?: Yes (11) Thrombocytopenia Is this a current diagnosis for this admission?: Yes (12) Acute and chronic respiratory failure Qualifiers: Respiratory failure complication: hypoxia Qualified Code(s): J96.21 - Acute and chronic respiratory failure with hypoxia Is this a current diagnosis for this admission?: YesPlan: Alpha 1 antitrypsin deficiency along with COPD. (13) Pulmonary embolus, left Is this a current diagnosis for this admission?: YesPlan: Continue with Coumadin. (14) Pulmonary hypertension Is this a current diagnosis for this admission?: Yes (15) Ascites Is this a current diagnosis for this admission?: YesPlan: Secondary to cirrhosis. Cirrhosis is felt to be secondary to alpha-1 antitrypsin deficiency (16) Gastroesophageal reflux disease Qualifiers: Esophagitis presence: without esophagitis Qualified Code(s): K21.9 - Gastro-esophageal reflux disease without esophagitis Is this a current diagnosis for this admission?: Yes (17) HTN (hypertension) Qualifiers: Hypertension type: essential hypertension Qualified Code(s): I10 - Essential (primary) hypertension Is this a current diagnosis for this admission?: Yes - Time Time Spent: 50 to 70 Minutes - Inpatient Certification Medical Necessity: Significant Comorbidiites Make Outpatient Treatment Too Risky , Need for IV Antibiotics
--- NOTE | 2016-11-28 16:52 | EKG REPORT ---
SEVERITY:- OTHERWISE NORMAL ECG - SINUS RHYTHM VENTRICULAR PREMATURE COMPLEX BORDERLINE RIGHT AXIS DEVIATION : Confirmed by: Tamir Baron MD 28-Nov-2016 16:51:57
[2016-11-28] MEDS: LEVOFLOXACIN 750 MG/D5W RTU 750 MG/150 ML RTUPB IV SCH (19:24)
[2016-11-28] MEDS: IPRATROPIUM/ALBUTEROL 0.5-2.5 MG/3 ML AMPUL NEB SCH (19:56)
[2016-11-28] MEDS ORDERED: DILTIAZEM HCL 30 MG TABLET PO SCH (21:00)
[2016-11-28] MEDS: FAMOTIDINE 20 MG TABLET PO SCH (22:07)
[2016-11-28] MEDS: METHYLPREDNISOLONE INJ 40 MG/1 ML SDV IV SCH (22:08)
[2016-11-28] MEDS ORDERED: GABAPENTIN 300 MG CAPSULE PO ONE (22:45)
[2016-11-28] MEDS ORDERED: TAMSULOSIN HCL 0.4 MG CAP.SR.24H PO ONE (23:00)
[2016-11-28] MEDS ORDERED: DOCUSATE SODIUM 100 MG CAPSULE PO ONE (23:00)
[2016-11-29] MEDS: IPRATROPIUM/ALBUTEROL 0.5-2.5 MG/3 ML AMPUL NEB SCH ×4 (02:03→20:21)
[2016-11-29 05:09] LABS: HEMATOCRIT 36.4 % (37.9-51.0); HEMOGLOBIN 12.1 g/dL (13.5-17.0); HGB HCT DIFFERENCE -0.1; MEAN CORPUSCULAR HEMOGLOBIN 29.4 pg (27.0-33.4); MEAN CORPUSCULAR HGB CONC 33.2 g/dL (32.0-36.0); MEAN CORPUSCULAR VOLUME 89 fl (80-97); RED BLOOD COUNT 4.11 10^6/uL (4.35-5.55); RED CELL DISTRIBUTION WIDTH 17.1 % (11.5-14.0); WHITE BLOOD COUNT 5.5 10^3/uL (4.0-10.5)
[2016-11-29 05:37] LABS: ANION GAP 7 (5-19); BLOOD UREA NITROGEN 19 mg/dL (7-20); CALCIUM 8.2 mg/dL (8.4-10.2); CARBON DIOXIDE 26 mmol/L (22-30); CHLORIDE 101 mmol/L (98-107); CREATININE RESULT 1.33 mg/dL (0.52-1.25); GLUCOSE 176 mg/dL (75-110); MAGNESIUM 2.1 mg/dL (1.6-2.3); POTASSIUM 4.4 mmol/L (3.6-5.0); SODIUM 133.6 mmol/L (137-145)
[2016-11-29] MEDS: METHYLPREDNISOLONE INJ 40 MG/1 ML SDV IV SCH ×3 (05:57→22:50)
[2016-11-29] MEDS: MIDODRINE HCL 5 MG TABLET PO SCH ×4 (05:58→15:01)
[2016-11-29] MEDS ORDERED: DILTIAZEM HCL 30 MG TABLET PO SCH (06:00)
[2016-11-29] MEDS ORDERED: ALBUTEROL SULFATE HFA (90 MCG/PUFF) 200 PUFF/8.5 GM MDI IH PRN (09:20)
[2016-11-29] MEDS ORDERED: ONDANSETRON 4 MG TAB.RAPDIS PO PRN (09:23)
[2016-11-29] MEDS ORDERED: ONDANSETRON HCL INJ/PF 4 MG/2 ML SDV IV PRN (09:23)
[2016-11-29] MEDS: GABAPENTIN 300 MG CAPSULE PO SCH ×2 (09:39→17:52)
[2016-11-29] MEDS: POTASSIUM CHLORIDE 10 MEQ TABLET.SA PO SCH ×2 (09:40→17:53)
[2016-11-29] MEDS: SPIRONOLACTONE 25 MG TABLET PO SCH (09:40)
[2016-11-29] MEDS: DOCUSATE SODIUM 100 MG CAPSULE PO SCH ×2 (09:40→17:53)
[2016-11-29] MEDS: BUMETANIDE 1 MG TABLET PO SCH ×2 (09:41→17:51)
[2016-11-29] MEDS: FAMOTIDINE 20 MG TABLET PO SCH ×2 (09:41→22:50)
[2016-11-29] MEDS ORDERED: (PENDING PHARMACY ID) (Spironolactone [Aldactone] 50 MG) PO SCH (10:00)
[2016-11-29] MEDS ORDERED: (PENDING PHARMACY ID) (Potassium Chloride [Potassium Chloride] 10 MEQ) PO SCH (10:00)
[2016-11-29] MEDS ORDERED: (PENDING PHARMACY ID) (Warfarin Sodium 2 MG) PO SCH (10:00)
[2016-11-29] MEDS ORDERED: TAMSULOSIN HCL 0.4 MG CAP.SR.24H PO SCH (10:00)
--- NOTE | 2016-11-29 10:12 | PDOC PROGRESS REPORT ---
Subjective Progress Note for:: 11/29/16 Subjective:: Continues to complain of shortness of breath. Physical Exam Vital Signs: Temp Pulse Resp BP Pulse Ox 97.5 F 95 16 105/54 L 97 11/29/16 07:43 11/29/16 08:20 11/29/16 08:20 11/29/16 07:43 11/29/16 08:20 Intake & Output 11/28/16 11/29/16 11/30/16 06:59 06:59 06:59 Intake Total 400 Balance 400 Weight 84.8 kg General appearance: PRESENT: mild distress Eye exam: PRESENT: conjunctiva pink. ABSENT: scleral icterus Mouth exam: PRESENT: moist, tongue midline Neck exam: ABSENT: JVD Respiratory exam: PRESENT: decreased breath sounds - Decreased breath sounds bilaterally.. ABSENT: rales, rhonchi, wheezes Cardiovascular exam: PRESENT: RRR. ABSENT: diastolic murmur, rubs, systolic murmur GI/Abdominal exam: PRESENT: ascites, normal bowel sounds, soft, tenderness - Mild epigastric tenderness.. ABSENT: distended, guarding, mass, organolmegaly, rebound Extremities exam: ABSENT: calf tenderness, clubbing, pedal edema Neurological exam: PRESENT: alert, awake, oriented to person, oriented to place , oriented to time, oriented to situation, CN II-XII grossly intact. ABSENT: motor sensory deficit Psychiatric exam: PRESENT: appropriate affect Skin exam: PRESENT: dry, intact, warm. ABSENT: cyanosis, rash Results Laboratory Results: 11/29/16 04:08 11/29/16 04:08 11/29/16 11/29/16 04:08 04:08 WBC 5.5 RBC 4.11 L Hgb 12.1 L Hct 36.4 L MCV 89 MCH 29.4 MCHC 33.2 RDW 17.1 H Plt Count 102 L Sodium 133.6 L Potassium 4.4 Chloride 101 Carbon Dioxide 26 Anion Gap 7 BUN 19 Creatinine 1.33 H Est GFR ( Amer) > 60 Est GFR (Non-Af Amer) 54 L Glucose 176 H Calcium 8.2 L Magnesium 2.1 Impressions: Chest X-Ray 11/28/16 13:10 IMPRESSION: COPD. EMPHYSEMATOUS CHANGES AND CHRONIC SCARRING. NO ACUTE RADIOGRAPHIC FINDING IN THE CHEST. Assessment & Plan - Diagnosis (1) COPD exacerbation Is this a current diagnosis for this admission?: YesPlan: Has acute COPD exacerbation. Will treat with IV steroids, Levaquin, nebulizers and oxygen. Patient still complains of feeling short of breath. Given his lack of improvement overnight we will add on theophylline. Patient does have alpha-1 antitrypsin deficiency. (2) Giczf-1-jlkqfwslsju deficiency Is this a current diagnosis for this admission?: Yes (3) ARF (acute renal failure) Qualifiers: Acute renal failure type: unspecified Qualified Code(s): N17.9 - Acute kidney failure, unspecified Is this a current diagnosis for this admission?: YesPlan: Has chronic renal failure stage II. He appears to be euvolemic. We will monitor the creatinine closely (4) BPH (benign prostatic hyperplasia) Qualifiers: Lower urinary tract symptom presence: symptoms absent Qualified Code (s): N40.0 - Benign prostatic hyperplasia without lower urinary tract symptoms Is this a current diagnosis for this admission?: Yes (5) CAD (coronary artery disease) Qualifiers: Coronary Disease-Associated Artery/Lesion type: [place] artery [place] vs. transplanted heart: [place] heart Associated angina: without angina Qualified Code(s): I25.10 - Atherosclerotic heart disease of [place] coronary artery without angina pectoris Is this a current diagnosis for this admission?: YesPlan: Patient denies any chest pain (6) CHF (congestive heart failure) Qualifiers: Congestive heart failure type: diastolic Congestive heart failure chronicity: chronic Qualified Code(s): I50.32 - Chronic diastolic ( congestive) heart failure Is this a current diagnosis for this admission?: YesPlan: Patient has chronic diastolic congestive heart failure (7) Coagulopathy Is this a current diagnosis for this admission?: YesPlan: Patient takes Coumadin for pulmonary embolism. Continue with daily PT/INR. (8) Depression Qualifiers: Depression Type: unspecified Qualified Code(s): F32.9 - Major depressive disorder, single episode, unspecified Is this a current diagnosis for this admission?: Yes (9) Diabetes mellitus type II, controlled Qualifiers: Diabetes mellitus complication status: with unspecified complications Diabetes mellitus intermediate teacher insulin use: without intermediate teacher use Qualified Code(s): E11.8 - Type 2 diabetes mellitus with unspecified complications; Z79.4 - MCFP (current) use of insulin Is this a current diagnosis for this admission?: YesPlan: Continue with sliding scale insulin. 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 (12) Acute and chronic respiratory failure Qualifiers: Respiratory failure complication: hypoxia Qualified Code(s): J96.21 - Acute and chronic respiratory failure with hypoxia Is this a current diagnosis for this admission?: YesPlan: Alpha 1 antitrypsin deficiency along with COPD. Suggested using BiPAP however the patient is adamant that he cannot tolerate BiPAP (13) Pulmonary embolus, left Is this a current diagnosis for this admission?: YesPlan: Continue with Coumadin. (14) Pulmonary hypertension Is this a current diagnosis for this admission?: Yes (15) Ascites Is this a current diagnosis for this admission?: YesPlan: Secondary to cirrhosis. Cirrhosis is felt to be secondary to alpha-1 antitrypsin deficiency (16) Gastroesophageal reflux disease Qualifiers: Esophagitis presence: without esophagitis Qualified Code(s): K21.9 - Gastro-esophageal reflux disease without esophagitis Is this a current diagnosis for this admission?: Yes (17) HTN (hypertension) Qualifiers: Hypertension type: essential hypertension Qualified Code(s): I10 - Essential (primary) hypertension Is this a current diagnosis for this admission?: Yes - Time Time Spent with patient: 25-34 minutes - Inpatient Certification Medical Necessity: Need Close Monitoring Due to Risk of Patient Decompensation, Need for IV Antibiotics
[2016-11-29] MEDS: THEOPHYLLINE ANHYDROUS 300 MG TAB.SR.12H PO SCH (10:41)
[2016-11-29] MEDS: INSULIN LISPRO 100 UNIT/ML 3 ML VIAL SUBCUT PRN ×3 (11:41→22:58)
[2016-11-29] MEDS: LEVOFLOXACIN 750 MG/D5W RTU 750 MG/150 ML RTUPB IV SCH (17:53)
[2016-11-29] MEDS: WARFARIN SODIUM 2 MG TABLET PO SCH (22:50)
[2016-11-29] MEDS: TAMSULOSIN HCL 0.4 MG CAP.SR.24H PO SCH (22:50)
[2016-11-30] MEDS: IPRATROPIUM/ALBUTEROL 0.5-2.5 MG/3 ML AMPUL NEB SCH ×2 (02:06→07:52)
[2016-11-30 04:57] LABS: HEMATOCRIT 36.1 % (37.9-51.0); HEMOGLOBIN 11.8 g/dL (13.5-17.0); HGB HCT DIFFERENCE -0.7; MEAN CORPUSCULAR HEMOGLOBIN 29.1 pg (27.0-33.4); MEAN CORPUSCULAR HGB CONC 32.6 g/dL (32.0-36.0); MEAN CORPUSCULAR VOLUME 89 fl (80-97); RED BLOOD COUNT 4.05 10^6/uL (4.35-5.55); RED CELL DISTRIBUTION WIDTH 16.6 % (11.5-14.0)
[2016-11-30 05:07] LABS: WHITE BLOOD COUNT 14.4 10^3/uL (4.0-10.5)
[2016-11-30 05:08] LABS: PROTHROMBIN TIME 21.7 SEC (11.4-15.4)
[2016-11-30 05:20] LABS: ANION GAP 8 (5-19); BLOOD UREA NITROGEN 23 mg/dL (7-20); CALCIUM 8.6 mg/dL (8.4-10.2); CARBON DIOXIDE 26 mmol/L (22-30); CHLORIDE 100 mmol/L (98-107); CREATININE RESULT 1.46 mg/dL (0.52-1.25); GLUCOSE 170 mg/dL (75-110); POTASSIUM 5.1 mmol/L (3.6-5.0); SODIUM 133.6 mmol/L (137-145)
[2016-11-30] MEDS: MIDODRINE HCL 5 MG TABLET PO SCH ×3 (05:59→15:44)
[2016-11-30] MEDS: METHYLPREDNISOLONE INJ 40 MG/1 ML SDV IV SCH (05:59)
[2016-11-30] MEDS: INSULIN LISPRO 100 UNIT/ML 3 ML VIAL SUBCUT PRN ×4 (07:49→22:38)
[2016-11-30] MEDS: DOCUSATE SODIUM 100 MG CAPSULE PO SCH ×2 (09:45→17:39)
[2016-11-30] MEDS: FAMOTIDINE 20 MG TABLET PO SCH ×2 (09:45→22:39)
[2016-11-30] MEDS: GABAPENTIN 300 MG CAPSULE PO SCH ×2 (09:46→17:40)
[2016-11-30] MEDS: SPIRONOLACTONE 25 MG TABLET PO SCH (09:46)
[2016-11-30] MEDS ORDERED: LEVALBUTEROL HCL NEB 1.25 MG/3 ML AMPUL NEB PRN (09:46)
[2016-11-30] MEDS ORDERED: METHYLPREDNISOLONE INJ 125 MG/2 ML SDV IV SCH (10:00)
--- NOTE | 2016-11-30 10:02 | PDOC PROGRESS REPORT ---
Subjective Progress Note for:: 11/30/16 Subjective:: Breathing is unchanged. Denies any chills or fever. No chest pain, diarrhea, nausea or vomiting. Reported tachycardia and is on albuterol and Atrovent scheduled as well as theophylline. Patient denies any dizziness nor lightheadedness nor chest pain. Physical Exam Vital Signs: Temp Pulse Resp BP Pulse Ox 97.8 F 110 H 16 101/59 L 93 11/30/16 07:09 11/30/16 07:52 11/30/16 07:52 11/30/16 07:09 11/30/16 07:52 Intake & Output 11/29/16 11/30/16 12/01/16 06:59 06:59 06:59 Intake Total 400 1702 Balance 400 1702 Weight 84.8 kg 85.8 kg General appearance: PRESENT: no acute distress, cooperative, obese Head exam: PRESENT: normocephalic Eye exam: PRESENT: EOMI Mouth exam: PRESENT: moist, neck supple Neck exam: ABSENT: JVD Respiratory exam: PRESENT: clear to auscultation porfirio. ABSENT: rhonchi, wheezes Cardiovascular exam: PRESENT: RRR. ABSENT: gallop GI/Abdominal exam: PRESENT: diminished bowel sounds, soft. ABSENT: distended, tenderness Extremities exam: PRESENT: other - Trace pretibial edema Neurological exam: PRESENT: alert, awake, oriented to situation Skin exam: PRESENT: dry, warm. ABSENT: cyanosis Results Laboratory Results: 11/30/16 03:40 11/30/16 03:40 11/30/16 11/30/16 03:40 03:40 WBC 14.4 H D RBC 4.05 L Hgb 11.8 L Hct 36.1 L MCV 89 MCH 29.1 MCHC 32.6 RDW 16.6 H Plt Count 134 L Sodium 133.6 L Potassium 5.1 H Chloride 100 Carbon Dioxide 26 Anion Gap 8 BUN 23 H Creatinine 1.46 H Est GFR ( Amer) 59 L Est GFR (Non-Af Amer) 49 L Glucose 170 H Calcium 8.6 11/29/16 00:15 Nasophary ([facility] Only) MRSA Surveillance Culture - Final NO MRSA RECOVERED Impressions: Chest X-Ray 11/28/16 13:10 IMPRESSION: COPD. EMPHYSEMATOUS CHANGES AND CHRONIC SCARRING. NO ACUTE RADIOGRAPHIC FINDING IN THE CHEST. Assessment & Plan - Diagnosis (1) Acute and chronic respiratory failure with hypoxia Is this a current diagnosis for this admission?: Yes (2) COPD exacerbation Is this a current diagnosis for this admission?: Yes (3) Pulmonary hypertension Is this a current diagnosis for this admission?: Yes (4) Tachycardia Is this a current diagnosis for this admission?: Yes (5) Coagulopathy Is this a current diagnosis for this admission?: Yes (6) BPH (benign prostatic hyperplasia) Qualifiers: Lower urinary tract symptom presence: symptoms absent Qualified Code (s): N40.0 - Benign prostatic hyperplasia without lower urinary tract symptoms Is this a current diagnosis for this admission?: Yes (7) CAD (coronary artery disease) Qualifiers: Coronary Disease-Associated Artery/Lesion type: [place] artery [place] vs. transplanted heart: [place] heart Associated angina: without angina Qualified Code(s): I25.10 - Atherosclerotic heart disease of [place] coronary artery without angina pectoris Is this a current diagnosis for this admission?: Yes (8) CHF (congestive heart failure) Qualifiers: Congestive heart failure type: diastolic Congestive heart failure chronicity: chronic Qualified Code(s): I50.32 - Chronic diastolic ( congestive) heart failure Is this a current diagnosis for this admission?: Yes (9) Depression Qualifiers: Depression Type: unspecified Qualified Code(s): F32.9 - Major depressive disorder, single episode, unspecified Is this a current diagnosis for this admission?: Yes (10) Diabetes mellitus type II, controlled Qualifiers: Diabetes mellitus complication status: with unspecified complications Diabetes mellitus retirement insulin use: without manager long term care use Qualified Code(s): E11.8 - Type 2 diabetes mellitus with unspecified complications; Z79.4 - bed bug exterminator (current) use of insulin Is this a current diagnosis for this admission?: Yes (11) Qjpkd-[id number] deficiency Is this a current diagnosis for this admission?: Yes (12) CKD (chronic kidney disease) Qualifiers: Chronic kidney disease stage: stage 3 (moderate) Qualified Code(s): N18.3 - Chronic kidney disease, stage 3 (moderate) Is this a current diagnosis for this admission?: Yes (13) Ivaea-6-wguohjvtfte deficiency Is this a current diagnosis for this admission?: Yes (14) Diabetes mellitus type 2 in obese Is this a current diagnosis for this admission?: Yes (15) Gastroesophageal reflux disease Qualifiers: Esophagitis presence: without esophagitis Qualified Code(s): K21.9 - Gastro-esophageal reflux disease without esophagitis Is this a current diagnosis for this admission?: Yes (16) HTN (hypertension) Qualifiers: Hypertension type: essential hypertension Qualified Code(s): I10 - Essential (primary) hypertension Is this a current diagnosis for this admission?: Yes (17) History of pulmonary embolism Is this a current diagnosis for this admission?: Yes - Time Time Spent with patient: 25-34 minutes - Plan Summary Plan Summary: We will change albuterol to Xopenex due to the tachycardia. We will check a theophylline level. In the meantime potassium was high we will therefore hold his potassium scheduled. Continue his diuretic and recheck electrolytes in the morning. I will try to increase the steroids see if it will improve his breathing.
[2016-11-30] MEDS: THEOPHYLLINE ANHYDROUS 300 MG TAB.SR.12H PO SCH (11:31)
[2016-11-30] MEDS: BUMETANIDE 1 MG TABLET PO SCH ×2 (11:31→17:41)
[2016-11-30] MEDS: METHYLPREDNISOLONE INJ 125 MG/2 ML SDV IV SCH ×2 (12:13→17:42)
[2016-11-30] MEDS: IPRATROPIUM BROMIDE 0.02% NEB 0.5 MG/2.5 ML AMPUL NEB SCH ×2 (13:26→20:01)
[2016-11-30] MEDS: LEVALBUTEROL HCL NEB 1.25 MG/3 ML AMPUL NEB SCH ×2 (13:26→20:00)
[2016-11-30] MEDS: LEVOFLOXACIN 750 MG/D5W RTU 750 MG/150 ML RTUPB IV SCH (17:42)
[2016-11-30] MEDS: TAMSULOSIN HCL 0.4 MG CAP.SR.24H PO SCH (22:38)
[2016-11-30] MEDS: WARFARIN SODIUM 2 MG TABLET PO SCH (22:39)
[2016-12-01] MEDS: METHYLPREDNISOLONE INJ 125 MG/2 ML SDV IV SCH ×3 (00:11→12:31)
[2016-12-01] MEDS: IPRATROPIUM BROMIDE 0.02% NEB 0.5 MG/2.5 ML AMPUL NEB SCH ×3 (01:13→13:28)
[2016-12-01] MEDS: LEVALBUTEROL HCL NEB 1.25 MG/3 ML AMPUL NEB SCH ×3 (01:13→13:29)
[2016-12-01 05:11] LABS: ANION GAP 6 (5-19); BLOOD UREA NITROGEN 33 mg/dL (7-20); CALCIUM 8.3 mg/dL (8.4-10.2); CARBON DIOXIDE 25 mmol/L (22-30); CHLORIDE 102 mmol/L (98-107); GLUCOSE 164 mg/dL (75-110); POTASSIUM 4.6 mmol/L (3.6-5.0); SODIUM 133.1 mmol/L (137-145)
[2016-12-01] MEDS: MIDODRINE HCL 5 MG TABLET PO SCH ×2 (05:44→12:25)
[2016-12-01] MEDS: INSULIN LISPRO 100 UNIT/ML 3 ML VIAL SUBCUT PRN ×2 (07:39→12:31)
[2016-12-01] MEDS: DOCUSATE SODIUM 100 MG CAPSULE PO SCH (10:32)
[2016-12-01] MEDS: FAMOTIDINE 20 MG TABLET PO SCH (10:33)
[2016-12-01] MEDS: GABAPENTIN 300 MG CAPSULE PO SCH (10:33)
[2016-12-01] MEDS: SPIRONOLACTONE 25 MG TABLET PO SCH (10:33)
[2016-12-01] MEDS: THEOPHYLLINE ANHYDROUS 300 MG TAB.SR.12H PO SCH (10:34)
[2016-12-01] MEDS: BUMETANIDE 1 MG TABLET PO SCH (11:07)
--- NOTE | 2016-12-01 13:26 | PDOC DISCHARGE SUMMARY ---
General - Admit/Disc Date/PCP Admission Date/Primary Care Provider: 11/28/16 16:08 ALFA GRANGER NP Discharge Date: 12/01/16 - Discharge Diagnosis (1) Acute and chronic respiratory failure with hypoxia Is this a current diagnosis for this admission?: Yes (2) COPD exacerbation Is this a current diagnosis for this admission?: Yes (3) Pulmonary hypertension Is this a current diagnosis for this admission?: Yes (4) Tachycardia Is this a current diagnosis for this admission?: Yes (5) Coagulopathy Is this a current diagnosis for this admission?: Yes (6) BPH (benign prostatic hyperplasia) Is this a current diagnosis for this admission?: Yes (7) CAD (coronary artery disease) Is this a current diagnosis for this admission?: Yes (8) CHF (congestive heart failure) Is this a current diagnosis for this admission?: Yes (9) Depression Is this a current diagnosis for this admission?: Yes (10) Diabetes mellitus type II, controlled Is this a current diagnosis for this admission?: Yes (11) Zcuqt-6-zbjbasvbvdv deficiency Is this a current diagnosis for this admission?: Yes (12) CKD (chronic kidney disease) Is this a current diagnosis for this admission?: Yes (13) Krxis-3-pqfefmhczsh deficiency Is this a current diagnosis for this admission?: Yes (14) Diabetes mellitus type 2 in obese Is this a current diagnosis for this admission?: Yes (15) Gastroesophageal reflux disease Is this a current diagnosis for this admission?: Yes (16) HTN (hypertension) Is this a current diagnosis for this admission?: Yes (17) History of pulmonary embolism Is this a current diagnosis for this admission?: Yes - Additional Information Resuscitation Status: Full Code Discharge Diet: Cardiac - Low-fat low-salt, Diabetic - No concentrated sweets Discharge Activity: Activity As Tolerated, Balance Activity w/Rest, Slowly Increase Activity Home Medications: Bumetanide 1 mg PO BID 11/28/16 Docusate Sodium [Colace 100 mg Capsule] 100 mg PO BID 11/28/16 Gabapentin 600 mg PO DAILY 11/28/16 Midodrine HCl 10 mg PO TID@0600,1130,1500 11/28/16 Omeprazole 20 mg PO DAILY 11/28/16 Ondansetron HCl [Zofran 4 mg Tablet] 4 mg PO Q6HP PRN 11/28/16 Potassium Chloride 10 meq PO BID 11/28/16 Spironolactone [Aldactone] 50 mg PO DAILY 11/28/16 Tamsulosin HCl [Flomax] 0.4 mg PO DAILY 11/28/16 Warfarin Sodium 2 mg PO DAILY 11/28/16 Ipratropium [place] [Atrovent 0.02% Neb 0.5 mg/2.5 ml Ampul] 0.5 mg NEB RTQ6 # 120 vial.neb 12/01/16 Levalbuterol HCl [Xopenex Neb 1.25 mg/3 ml Ampul] 1.25 mg NEB RTQ6 #120 vial.neb 12/01/16 Levofloxacin [Levaquin 750 mg Tablet] 750 mg PO DAILY #5 tablet 12/01/16 Prednisone [Sterapred Ds] 1 pkg PO ASDIR PRN 12 Days 12/01/16 Theophylline Anhydrous 300 mg PO DAILY #30 tab.er.12h 12/01/16 Additional Information: Return to ER if symptoms got worse. PT/INR check in 3 days with primary physician. History of Present Illness Patient complains of: SOB History of Present Illness: 61-year-old male history of COPD presents with complaints of shortness breath difficulty breathing. Patient is on baseline 2 L nasal cannula, notes when he ambulated today to go to the bathroom his O2 sats decreased down to 67%. Patient notes symptoms have worsened over the past week admits to nonproductive cough. Pt was refered for admission. For details please refer to H&P performed by admitting physician. Hospital Course Hospital Course: The patient was admitted to [facility]. The patient was placed on supplemental oxygen. She was started on duo nebulizers and intravenous steroids. Theophylline was likewise added to the treatment regimen. Empiric antibiotic with Levaquin was likewise placed. After 24 hours patient showed no significant improvement therefore steroid dose was adjusted. Episodes of tachycardia was noted with duo nebulizers and this was shifted to Xopenex and Atrovent. Tachycardia has improved. At this point the patient requested to be discharged and does not want to stay in the hospital. He reports that his needs to see a physician in a few days for evaluation of her hip. He therefore requested to be discharged home and agreed to see her physician sooner or return to the emergency room if symptoms get worse. His theophylline level was subtherapeutic. Upon improvement, the patient was able to ambulate around the room without much difficulty. Rest of the hospital stays unremarkable. Physical Exam Vital Signs: Temp Pulse Resp BP Pulse Ox 97.5 F 102 H 20 101/53 L 100 12/01/16 11:05 12/01/16 11:05 12/01/16 11:05 12/01/16 11:05 12/01/16 11:05 Intake & Output 11/30/16 12/01/16 12/02/16 06:59 06:59 06:59 Intake Total 1702 1326 615 Balance 1702 1326 615 Weight 85.8 kg 84.3 kg General appearance: PRESENT: no acute distress, cooperative, obese Head exam: PRESENT: normocephalic Eye exam: PRESENT: EOMI Mouth exam: PRESENT: moist, neck supple Neck exam: ABSENT: JVD Respiratory exam: PRESENT: decreased breath sounds, unlabored. ABSENT: rhonchi , wheezes Cardiovascular exam: PRESENT: RRR. ABSENT: gallop GI/Abdominal exam: PRESENT: normal bowel sounds, soft. ABSENT: distended - obese, tenderness Extremities exam: PRESENT: other - trace pre-tibial edema Neurological exam: PRESENT: alert, awake, oriented to person, oriented to place , oriented to time, oriented to situation Skin exam: PRESENT: dry, warm. ABSENT: cyanosis Results Laboratory Results: 11/30/16 03:40 12/01/16 04:07 12/01/16 04:07 Sodium 133.1 L Potassium 4.6 Chloride 102 Carbon Dioxide 25 Anion Gap 6 BUN 33 H Creatinine 1.40 H Est GFR ( Amer) > 60 Est GFR (Non-Af Amer) 51 L Glucose 164 H Calcium 8.3 L 11/29/16 00:22 Sputum Gram Stain - Final 11/29/16 00:22 Sputum Sputum Culture - Final C.albicans/C.dubliniensis Normal Sahra Impressions: Chest X-Ray 11/28/16 13:10 IMPRESSION: COPD. EMPHYSEMATOUS CHANGES AND CHRONIC SCARRING. NO ACUTE RADIOGRAPHIC FINDING IN THE CHEST. Qualifiers PATEINT BEING DISCHARGED WITH ANY OF THE FOLLOWING DIAGNOSIS?: No Plan Discharge Plan: Follow-up w/ primary physician in 1 week. Time Spent: Less than 30 Minutes
[2016-12-01 13:52] VITALS: BP 111/61
== END 2016-12-01 15:20 | disposition home or self-care (01) | DRG 190 ==
LOC: ER 11:15 → UNDOADMIN 15:53 → EH 15:53 → 3N 18:15
PROVIDERS: ADMIT Internal Medicine; ATTEND Internal Medicine
PROC: 3E0F73Z Introduction of Anti-inflammatory into Respiratory Tract, Via Natural or Artificial Opening (ICD-10-PCS; principal; 2016-11-28)
DX: J44.1 Chronic obstructive pulmonary disease with (acute) exacerbation (principal); J96.21 Acute and chronic respiratory failure with hypoxia; I26.99 Other pulmonary embolism without acute cor pulmonale; I13.0 Hypertensive heart and chronic kidney disease with heart failure and stage 1 through stage 4 chronic kidney disease, or unspecified chronic kidney disease; I50.32 Chronic diastolic (congestive) heart failure; N17.9 Acute kidney failure, unspecified; R18.8 Other ascites; I27.2 Other secondary pulmonary hypertension; R00.0 Tachycardia, unspecified; N40.0 Benign prostatic hyperplasia without lower urinary tract symptoms; I25.10 Atherosclerotic heart disease of native coronary artery without angina pectoris; F32.9 Major depressive disorder, single episode, unspecified; E11.22 Type 2 diabetes mellitus with diabetic chronic kidney disease; E88.01 Alpha-1-antitrypsin deficiency; D63.1 Anemia in chronic kidney disease; K74.69 Other cirrhosis of liver; N18.3 Chronic kidney disease, stage 3 (moderate); K21.9 Gastro-esophageal reflux disease without esophagitis; M19.90 Unspecified osteoarthritis, unspecified site; E66.9 Obesity, unspecified; Z68.27 Body mass index [BMI] 27.0-27.9, adult; I25.2 Old myocardial infarction; Z86.711 Personal history of pulmonary embolism; Z79.01 Long term (current) use of anticoagulants; Z79.4 Long term (current) use of insulin; Z79.899 Other long term (current) drug therapy; Z86.14 Personal history of Methicillin resistant Staphylococcus aureus infection; Z87.891 Personal history of nicotine dependence; Z88.6 Allergy status to analgesic agent; Z88.3 Allergy status to other anti-infective agents; Z88.0 Allergy status to penicillin; Z88.8 Allergy status to other drugs, medicaments and biological substances; Z82.49 Family history of ischemic heart disease and other diseases of the circulatory system; Z83.3 Family history of diabetes mellitus
CPT/HCPCS: 36415; 71010; 80048; 80053; 80198; 81001; 82550; 82553; 82962; 83735; 83880; 84484; 85025; 85027; 85610; 87040; 87070; 87205; 93005; 93010; 94640; 96374; 99285; J1815; J1956; J2920; J2930; J3490; J7620

== ENCOUNTER 2016-12-18 05:20 | Emergency (ER) | payer MEDICARE, OTHER ==
--- NOTE | 2016-12-18 06:17 | ER Document Report ---
ED GI/ - General Information source: Patient TRAVEL OUTSIDE OF THE [place] IN LAST 30 DAYS: No - HPI Patient complains to provider of: Abdominal pain, Diarrhea. No: Dysuria, Vomiting Associated symptoms: Other - see above <VALENCIA HOUSTON - Last Filed: 12/18/16 08:25> <ROHIT DE LA TORRE - Last Filed: 12/19/16 13:14> - General Chief Complaint: Abdominal Pain Stated Complaint: NAUSEA, VOMITING, DIARRHEA Time Seen by Provider: 12/18/16 06:07 Notes: Patient is a 61 year old male who presents to the ED with complaints of nausea and diarrhea. Patient states he was feeling distended and like he was retaining fluid and had been constipated so he took a laxative last night. Patient took the laxative when he went to bed and states the nausea started prior to taking the laxative. Patient states he has not felt good since he got an iron infusion on . He denies dysuria. Patient has some pain above his umbilicus that he states is worse than normal. Patient has also been more SOB then normal lately. He has not had any vomiting. Patient has had to have fluid drained off of his abdomen 1x in the past. (VALENCIA HOUSTON) - Related Data Allergies/Adverse Reactions: Heparin Analogues [Heparin Agents] Allergy (Severe, Verified 11/28/16 11:50) Thrombocytopenia heparinoids [Heparinoids] Allergy (Severe, Verified 11/28/16 11:50) Thrombocytopenia codeine [Codeine] Allergy (Unknown, Verified 11/28/16 11:50) GI upset Penicillins Allergy (Unknown, Verified 11/28/16 11:50) Swelling doxycycline Allergy (Verified 11/28/16 11:50) Past Medical History - General Information source: Patient - Social History Smoking Status: Former Smoker Family History: CAD, Hypertension, Other - CHF Patient has suicidal ideation: No Patient has homicidal ideation: No - Past Medical History Cardiac Medical History: Reports: Hx Congestive Heart Failure - Left ventricular diastolic dysfunction, Hx DVT, Hx Heart Attack, Hx Hypertension - LOW, Hx Pulmonary Embolism Pulmonary Medical History: Reports: Hx COPD - 2L [place], Hx Pneumonia Endocrine Medical History: Reports: Hx Diabetes Mellitus Type 2 GI Medical History: Reports: 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 - Immunizations Hx Diphtheria, Pertussis, Tetanus Vaccination: Yes Hx Pneumococcal Vaccination: 04/05/14 <VALENCIA HOUSTON - Last Filed: 12/18/16 08:25> Review of Systems - Review of Systems Constitutional: No symptoms reported EENT: No symptoms reported Cardiovascular: No symptoms reported Respiratory: See HPI, Short of breath Gastrointestinal: See HPI, Abdomen distended, Abdominal pain, Diarrhea, Nausea, Constipation. denies: Vomiting Genitourinary: No symptoms reported Male Genitourinary: No symptoms reported Musculoskeletal: See HPI, Leg swelling, Ankle swelling Skin: No symptoms reported Hematologic/Lymphatic: No symptoms reported Neurological/Psychological: No symptoms reported <RUFINA HOUSTONANDRA - Last Filed: 12/18/16 08:25> Physical Exam - General General appearance: Alert - HEENT Head: Normocephalic, Atraumatic Eyes: Normal Extraocular movements intact: Yes Pupils: PERRL - Respiratory Respiratory status: No respiratory distress Breath sounds: Decreased air movement - bilaterally. No: Wheezing - Cardiovascular Rhythm: Regular Heart sounds: Normal auscultation Murmur: No - Abdominal Distension: Distended Bowel sounds: Hypoactive - Back Back: Normal - Extremities General upper extremity: Normal inspection, Normal strength General lower extremity: Edema - symmetrical 3+ pitting edema bilaterally, Normal strength - Neurological Neuro grossly intact: Yes - Psychological Associated symptoms: Normal affect, Normal mood - Skin Skin Temperature: Warm Skin Moisture: Dry Skin Color: Normal <ROSEMARIEVALENCIA - Last Filed: 12/18/16 08:25> - Vital signs Vitals: Temp Pulse Resp BP Pulse Ox 98.4 F 107 H 20 124/67 90 L 12/18/16 05:24 12/18/16 05:24 12/18/16 05:24 12/18/16 05:24 12/18/16 05:24 Course - Laboratory Result Diagrams: 12/18/16 06:48 12/18/16 06:48 <ROSEMARIEVALENCIA - Last Filed: 12/18/16 08:25> - Laboratory Result Diagrams: 12/18/16 06:48 12/18/16 06:48 <ROHIT DE LA TORRE - Last Filed: 12/19/16 13:14> - Re-evaluation Re-evalutation: 12/18/16 12:48 Patient presents emergency department with a chief complaint of nausea vomiting and diarrhea. Patient sees Dr. Youssef who is with Dr. Galvin. He is chronic COPD on O2 2 L nasal cannula has alpha 1 antitrypsin deficiency and pulmonary hypertension coronary disease CHF diabetes with history of pulmonary embolism. He is subtherapeutic on his Coumadin. Also recently been started on iron. Also has cirrhosis with ascites history of drainage in the past. Denies any trouble urinating from a breathing standpoint he is stable. He said he thought he was constipated yesterday so he took a whole bunch of stuff that you take when you get ready for her colon prep and started having nausea but no episodes of vomiting started having large amount of loose stool with no blood in it. On examination he is mildly tachycardic he is afebrile awake and alert he has abdominal distention with ascitic fluid wave mild tenderness palpation the epigastrium without associated guarding rebound rigidity peritoneal signs. X-ray showed possible ileus or obstruction I gave him oral contrast CT scan shows ascites does not show bowel obstruction. He has had no episodes of vomiting here vital signs are stable labs are otherwise stable. Gave him information to call the radiology department on Tuesday to set up an outpatient abdominal paracentesis came some nausea medication instructed him not to take any additional laxatives. He will follow-up with his primary care physician first thing on Tuesday and discussed reasons for ED return sooner (ROHIT DE LA TORRE) - Vital Signs Vital signs: Temp Pulse Resp BP Pulse Ox 98.4 F 107 H 13 119/67 95 12/18/16 05:24 12/18/16 05:24 12/18/16 12:00 12/18/16 08:31 12/18/16 12:00 - Laboratory Laboratory results interpreted by me: 12/18/16 12/18/16 12/18/16 06:48 06:48 06:48 RDW 19.5 H Plt Count 69 L Seg Neutrophils % 81.4 H Lymphocytes % 9.2 L Absolute Neutrophils 8.4 H PT 16.4 H Sodium 132.8 L Calcium 8.2 L Total Bilirubin 1.6 H Direct Bilirubin 0.5 H Alkaline Phosphatase 234 H Total Protein 5.9 L Albumin 2.6 L Urine Urobilinogen 12/18/16 11:45 RDW Plt Count Seg Neutrophils % Lymphocytes % Absolute Neutrophils PT Sodium Calcium Total Bilirubin Direct Bilirubin Alkaline Phosphatase Total Protein Albumin Urine Urobilinogen 2.0 H - EKG Interpretation by Me Additional EKG results interpreted by me: 12/18/16 10:18 sinus tachycardia at [address] elevation or depression (ROHIT DE LA TORRE) Discharge <VALENCIA HOUSTON - Last Filed: 12/18/16 08:25> <ROHIT DE LA TORRE - Last Filed: 12/19/16 13:14> - Discharge Clinical Impression: nausea and diarrhea, Ascites Ascites Qualifiers: Ascites type: other type Qualified Code(s): R18.8 - Other ascites Condition: Stable Disposition: HOME, SELF-CARE Instructions: Abdominal Pain ([facility]) Additional Instructions: Vomiting Vomiting can be part of many illnesses. Most cases of vomiting are due to gastroenteritis, usually a viral infection in the intestinal tract. There is no specific treatment. The disease will end by itself. For now, the main danger to your child is dehydration. During the first few hours of the illness, give clear liquids, such as Pedialyte. Try to give small quantities frequently, such as a teaspoon of liquid every minute or about an ounce of fluids every five to ten minutes. Medications may be prescribed by the physician for special cases. After an hour or two of fluids without vomiting, add rice cereal, toast, applesauce, or bananas and other more solid foods to the clear liquids. Call the physician or go to the hospital if vomiting increases or blood appears in the bowel movement or vomitus; if your child fails to improve, or if signs of dehydration occur (no wet diapers for eight to twelve hours, tongue and mouth become dry, not acting as alert as usual). Diarrhea Diarrhea means frequent, watery stools. There are many causes. Any problem that keeps the intestinal tract from absorbing water from the stool can lead to diarrhea. A sudden new diarrhea problem is usually caused by a virus, food sensitivity, toxic bacteria, or drugs. In this case, we expect the problem to go away soon. Testing is done only if you seem seriously ill from the diarrhea. If you have chronic diarrhea, or diarrhea that keeps coming back, we need to find out why. Chronic diarrhea can be due to inflammation of the bowels such as Crohn's disease or ulcerative colitis, food sensitivity such as intolerance to lactose or wheat protein, irritable bowel syndrome, and other problems. If your diarrhea is a significant problem but it's not clear why you have it, we' ll refer you to a specialist for further testing. During an episode of diarrhea, drink small amounts (two to six ounces) of clear liquids (soft drinks, sport drinks, herb teas, broth, etc). Take fluids frequently to prevent dehydration. It's usually not a problem to take mild anti- diarrhea medication such as Kaopectate or Pepto-Bismol. As the diarrhea eases, advance to small amounts of bland food (mashed potato, toast) for 24 hours. Call the physician if blood appears in your vomit or stool, if vomiting lasts longer than 24 hours, if the abdominal pain worsens or becomes localized to one area, if you develop high fever, or if you become lightheaded and weak. You have ascites otherwise known as abdominal fluid which you have had drained in the past. I have given you an outpatient number to contact on Tuesday to get follow-up to have your paracentesis done to drain your ascites fluid from your belly. Follow-up with your primary care physician on Tuesday or Tuesday return for increasing worsening or new symptoms Prescriptions: Ondansetron [Zofran Odt 4 mg Tablet] 1 - 2 tab PO Q4H PRN #15 tab.rapdis PRN Reason: For Nausea/Vomiting Forms: Follow-Up Radiology Testing Scribe Attestation: 12/18/16 12:48 I personally performed the services described in the documentation reviewed the documentation recorded by my scribe in my presence and it accurately and completely records my words and actions (ROHIT DE LA TORRE) Scribe Documentation - Scribe Written by Bright:: bright Crandall, 12/18/2016, 622 acting as scribe for :: Francois <VALENCIA HOUSTON - Last Filed: 12/18/16 08:25>
[2016-12-18] MEDS ORDERED: FENTANYL CITRATE INJ/PF 100 MCG/2 ML AMPUL IV ONE (06:24)
[2016-12-18] MEDS ORDERED: ONDANSETRON HCL INJ/PF 4 MG/2 ML SDV IV ONE (06:24)
[2016-12-18 07:05] LABS: ABSOLUTE EOSINOPHILS # (AUTO) 0.3 10^3/uL (0.0-0.6); ABSOLUTE LYMPHOCYTES (AUTO) 0.9 10^3/uL (0.5-4.7)
[2016-12-18 07:12] LABS: ABSOLUTE MONOCYTES (AUTO) 0.7 10^3/uL (0.1-1.4); ABSOLUTE NEUT (AUTO) 8.4 10^3/uL (1.7-8.2); BASOPHILS % (AUTO) 0.4 % (0-2); EOSINOPHILS % (AUTO) 2.6 % (0-6); HEMOGLOBIN 13.5 g/dL (13.5-17.0); HGB HCT DIFFERENCE 0.5; LYMPHOCYTES % (AUTO) 9.2 % (13-45); MEAN CORPUSCULAR HEMOGLOBIN 29.5 pg (27.0-33.4); MEAN CORPUSCULAR HGB CONC 33.8 g/dL (32.0-36.0); MEAN CORPUSCULAR VOLUME 88 fl (80-97); MONOCYTES % (AUTO) 6.4 % (3-13); RED BLOOD COUNT 4.57 10^6/uL (4.35-5.55); RED CELL DISTRIBUTION WIDTH 19.5 % (11.5-14.0); SEGMENTED NEUTROPHILS % (AUTO) 81.4 % (42-78); WHITE BLOOD COUNT 10.3 10^3/uL (4.0-10.5)
[2016-12-18 07:16] LABS: ALANINE AMINOTRANSFERASE 36 U/L (21-72); ALBUMIN 2.6 g/dL (3.5-5.0); ALKALINE PHOSPHATASE 234 U/L (38-126); ASPARTATE AMINO TRANSFERASE 36 U/L (17-59); BILIRUBIN,DIRECT 0.5 mg/dL (0.0-0.4); BILIRUBIN,TOTAL 1.6 mg/dL (0.2-1.3); BLOOD UREA NITROGEN 17 mg/dL (7-20); CALCIUM 8.2 mg/dL (8.4-10.2); CHLORIDE 98 mmol/L (98-107); CREATININE RESULT 1.14 mg/dL (0.52-1.25); GLUCOSE 109 mg/dL (75-110); TOTAL PROTEIN 5.9 g/dL (6.3-8.2)
[2016-12-18 07:19] LABS: PROTHROMBIN TIME 16.4 SEC (11.4-15.4)
[2016-12-18 07:25] LABS: ANION GAP 5 (5-19); CARBON DIOXIDE 30 mmol/L (22-30); POTASSIUM 4.5 mmol/L (3.6-5.0); SODIUM 132.8 mmol/L (137-145)
[2016-12-18 07:28] LABS: TROPONIN I < 0.012 ng/mL
--- NOTE | 2016-12-18 07:47 | RADIOLOGY REPORT (SQ) ---
EXAM DESCRIPTION: ACUTE ABDOMEN SERIES COMPLETED DATE/TIME: 12/18/2016 7:16 am REASON FOR STUDY: nausea distension COMPARISON: 02/01/2015. CR, chest, 11/28/2016. CT, 12/18/2016 NUMBER OF VIEWS: Three views. TECHNIQUE: Frontal chest, supine abdomen and upright/decubitus abdomen radiographic images acquired. LIMITATIONS: Arm positioning artifact. FINDINGS: CHEST: Somewhat worsened mrgy-pa-bwufygof mixed airspace and interstitial opacity, predomi nately in the left mid lung field compared with prior exam, 11/28/2016. Large cardiophrenic fat pad co nsistent with prior CT, 11/07/2016. Small bibasilar opacity-effusion. FREE AIR: None. No abnormal gas collections. BOWEL GAS PATTERN: Mild dilation in stacking jejunal small bowel measuring up to 3.3 cm in diameter e ach. CALCIFICATIONS: No suspicious calcifications. HARDWARE: None in the abdomen. SOFT TISSUES: No gross mass or suggestion of organomegaly. BONES: Mild osteoarthritis of bilateral hips. OTHER: No other significant finding. IMPRESSION: 1. Ixgf-nc-cddzbozy jejunal ileus pattern. Differential diagnosis includes early or pa rtial small bowel obstruction. 2. Likely worsening chronic interstitial lung disease and/or pulmona ry fibrosis. Differential diagnosis includes pulmonary edema and/or pneumonia. Recommend 7-12 week surveillance radiographs with clinically warranted therapy. TECHNICAL DOCUMENTATION: JOB ID: [id number] [employer]- All Rights Reserved
--- NOTE | 2016-12-18 11:16 | RADIOLOGY REPORT (SQ) ---
EXAM DESCRIPTION: CT ABD/PELVIS ORAL ONLY COMPLETED DATE/TIME: 12/18/2016 11:02 am REASON FOR STUDY: pain with possible obstruction COMPARISON: None. TECHNIQUE: CT scan of the abdomen and pelvis performed with oral contrast and no intravenous contras t. Images reviewed with lung, soft tissue, and bone windows. Reconstructed coronal and sagittal MPR i mages reviewed. All images stored on PACS. All CT scanners at this facility use dose modulation, iterative reconstruction, and/or weight based d osing when appropriate to reduce radiation dose to as low as reasonably achievable (ALARA). [facility]: Dose Right [facility]: CareDose [facility]: Dose Right [facility]: Teradose 4D [facility]: [employer] RADIATION DOSE: Up-to-date CT equipment and radiation dose reduction techniques were employed. CTDIv ol: 16.3 mGy. DLP: 846 mGy-cm.mGy. LIMITATIONS: None. FINDINGS: LOWER CHEST: Emphysema. Bronchiectasis and scarring. NON-CONTRASTED LIVER, SPLEEN, ADRENALS: Contracted liver with sub capsular nodularity typical of cirr hosis. Mild splenomegaly. PANCREAS: No masses. No peripancreatic inflammatory changes. GALLBLADDER: No identified stones by CT criteria. No inflammatory changes to suggest cholecystitis. RIGHT KIDNEY AND URETER: No solid masses. No significant calcification. No hydronephrosis or hydroure ter. LEFT KIDNEY AND URETER: No solid masses. No significant calcification. No hydronephrosis or hydrouret er. AORTA AND RETROPERITONEUM: No aneurysm. No retroperitoneal masses or adenopathy. BOWEL AND PERITONEAL CAVITY: Moderate ascites. No evidence of bowel obstruction. No free air. APPENDIX: Not visualized. PELVIS, BLADDER, AND ABDOMINAL WALL: Umbilical hernia containing fat. BONES: No acute findings. OTHER: No other significant finding. IMPRESSION: Cirrhosis. Moderate ascites. No obstruction. TECHNICAL DOCUMENTATION: JOB ID: [id number] Quality ID # [id number]: Final reports with documentation of one or more dose reduction techniques (e.g., Au tomated exposure control, adjustment of the mA and/or kV according to patient size, use of iterative reconstruction technique) 2010 [employer]- All Rights Reserved
[2016-12-18 12:23] LABS: APPEARANCE,URINE CLEAR; BILIRUBIN,URINE NEGATIVE (NEGATIVE); GLUCOSE, URINE NEGATIVE (NEGATIVE); KETONES,URINE NEGATIVE (NEGATIVE); LEUKOCYTE ESTERASE,URINE NEGATIVE (NEGATIVE); NITRITE,URINE NEGATIVE (NEGATIVE); PROTEIN,URINE NEGATIVE (NEGATIVE); URINE SPECIFIC GRAVITY 1.013
[2016-12-18 13:17] VITALS: BP 119/67
--- NOTE | 2016-12-18 21:04 | EKG REPORT ---
SEVERITY:- ABNORMAL ECG - SUPRAVENTRICULAR TACHYCARDIA RUN OF VENTRICULAR PREMATURE COMPLEXES RIGHT AXIS DEVIATION ABNRM R PROG, CONSIDER ASMI OR LEAD PLACEMENT : Confirmed by: Stepan Benson 18-Dec-2016 21:03:14
== END 2016-12-18 13:15 | disposition home or self-care (01) ==
LOC: ER 05:20
DX: R18.8 Other ascites (principal); R10.9 Unspecified abdominal pain; R11.2 Nausea with vomiting, unspecified; R19.7 Diarrhea, unspecified; Z87.891 Personal history of nicotine dependence
CPT/HCPCS: 93005; 99285; 96374; 96375; 36415; 83690; 85025; 85610; 80053; 81001; 84484; 83880; 74022; 74176; 93010; J3010; J2405

== ENCOUNTER 2016-12-23 22:23 | Inpatient (IN) | payer OTHER, MEDICARE ==
--- NOTE | 2016-12-23 23:24 | ER Document Report ---
ED General - General Chief Complaint: Shortness Of Breath Stated Complaint: FEET SWELLING AND TROUBLE BREATHING Time Seen by Provider: 12/23/16 23:00 Mode of Arrival: Ambulatory Information source: Patient Notes: 61-year-old male history of COPD CHF presents with complaints of shortness of breath over the past few days. Patient notes his bilateral lower extremities have been swelling. Patient has been on Lasix, admits to abdominal distention as well notes he was supposed to have fluid taken off this week but missed his appointment TRAVEL OUTSIDE OF THE [place] IN LAST 30 DAYS: No - HPI Onset: Last week Onset/Duration: Persistent, Worse Quality of pain: No pain Severity: Mild Pain Level: 1 Associated symptoms: Nonproductive cough, Shortness of breath Exacerbated by: Supine, Movement, Walking Relieved by: Denies Similar symptoms previously: Yes Recently seen / treated by doctor: Yes - Related Data Allergies/Adverse Reactions: Heparin Analogues [Heparin Agents] Allergy (Severe, Verified 11/28/16 11:50) Thrombocytopenia heparinoids [Heparinoids] Allergy (Severe, Verified 11/28/16 11:50) Thrombocytopenia codeine [Codeine] Allergy (Unknown, Verified 11/28/16 11:50) GI upset Penicillins Allergy (Unknown, Verified 11/28/16 11:50) Swelling doxycycline Allergy (Verified 11/28/16 11:50) Past Medical History - Social History Smoking Status: Current Every Day Smoker Cigarette use (# per day): Yes Chew tobacco use (# tins/day): No Smoking Education Provided: No Family History: CAD, Hypertension, Other - CHF Patient has suicidal ideation: No Patient has homicidal ideation: No - Past Medical History Cardiac Medical History: Reports: Hx Congestive Heart Failure - Left ventricular diastolic dysfunction, Hx DVT, Hx Heart Attack, Hx Hypertension - LOW, Hx Pulmonary Embolism Denies: Hx Coronary Artery Disease, Hx Hypercholesterolemia Pulmonary Medical History: Reports: Hx COPD - 2L [place], Hx Pneumonia Denies: Hx Asthma, Hx Bronchitis, Hx Sleep Apnea, Hx Tuberculosis Neurological Medical History: Denies: Hx Cerebrovascular Accident, Hx Seizures Endocrine Medical History: Reports: Hx Diabetes Mellitus Type 2. 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 Denies: Hx Hepatitis Musculoskeltal Medical History: Reports Hx Arthritis Psychiatric Medical History: Reports: Hx Depression Infectious Medical History: Reports: Hx C-Diff, Hx MRSA. Denies: Hx Hepatitis Past Surgical History: Reports: Other - Left chest tube insertion. - Immunizations Hx Diphtheria, Pertussis, Tetanus Vaccination: Yes Hx Pneumococcal Vaccination: 04/05/14 Review of Systems - Review of Systems Notes: REVIEW OF SYSTEMS: CONSTITUTIONAL : Denies fever, chills, or sweats. Denies recent illness. EENT: Denies eye, ear, throat, or mouth pain or symptoms. Denies nasal or sinus congestion or discharge. Denies throat, tongue, or mouth swelling or difficulty swallowing. CARDIOVASCULAR: Denies chest pain. Denies palpitations or racing or irregular heart beat. Admits to peripheral edema RESPIRATORY: Admits to shortness of breath GASTROINTESTINAL: Admits to abdominal distention GENITOURINARY: Denies difficulty urinating, painful urination, burning, frequency, blood in urine, or discharge. MUSCULOSKELETAL: Admits to peripheral swelling SKIN: Denies rash, lesions or sores. HEMATOLOGIC : Denies easy bruising or bleeding. LYMPHATIC: Denies swollen, enlarged glands. NEUROLOGICAL: Denies confusion or altered mental status. Denies passing out or loss of consciousness. Denies dizziness or lightheadedness. Denies headache. Denies weakness or paralysis or loss of use of either side. Denies problems with gait or speech. Denies sensory loss, numbness, or tingling. Denies seizures. PSYCHIATRIC: Denies anxiety or stress. Denies depression, suicidal ideation, or homicidal ideation. ALL OTHER SYSTEMS REVIEWED AND NEGATIVE. Dictation was performed using [employer] voice recognition software PHYSICAL EXAMINATION: GENERAL: Well-appearing, well-nourished and in no acute distress. HEAD: Atraumatic, normocephalic. EYES: Pupils equal round and reactive to light, extraocular movements intact, sclera anicteric, conjunctiva are normal. ENT: Nares patent, oropharynx clear without exudates. Moist mucous membranes. NECK: Normal range of motion, supple without lymphadenopathy LUNGS: Rhonchi at the bases decreased breath sounds all throughout HEART: Regular rate and rhythm without murmurs ABDOMEN: Abdominal distention Musculoskeletal: Bilateral peripheral edema NEUROLOGICAL: Cranial nerves grossly intact. Normal speech, normal gait. Normal sensory, motor exams PSYCH: Normal mood, normal affect. SKIN: Warm, Dry, normal turgor, no rashes or lesions noted. Physical Exam - Vital signs Vitals: Temp Pulse Resp BP Pulse Ox 98.8 F 121 H 20 92/53 L 92 12/23/16 22:38 12/23/16 22:38 12/23/16 22:38 12/23/16 22:38 12/23/16 22:38 Course - Re-evaluation Re-evalutation: 12/23/16 23:24 On evaluation patient is in no significant distress however does have quite a bit of peripheral edema 12/23/16 23:43 Patient refuses BiPAP 12/24/16 00:15 Patient has quite a bit of ascites will require to be tapped at some point will admit observation - Vital Signs Vital signs: Temp Pulse Resp BP Pulse Ox 98.8 F 121 H 20 104/63 93 12/23/16 22:38 12/23/16 22:38 12/23/16 23:09 12/23/16 23:09 12/23/16 23:24 - Laboratory Result Diagrams: 12/23/16 23:00 12/23/16 23:00 Laboratory results interpreted by me: 12/23/16 12/23/16 23:00 23:00 RDW 21.7 H Plt Count 86 L Sodium 135.4 L Glucose 112 H Total Bilirubin 1.6 H Direct Bilirubin 0.6 H Alkaline Phosphatase 225 H Total Protein 6.2 L Albumin 2.6 L - Diagnostic Test Radiology reviewed: Image reviewed, Reports reviewed - EKG Interpretation by Dc EKG shows normal: Sinus rhythm, [place], Intervals, QRS Complexes Rate: Tachycardia Discharge - Discharge Clinical Impression: Tachycardia, Hypoxemia Ascites Qualifiers: Ascites type: other type Qualified Code(s): R18.8 - Other ascites Condition: Stable Disposition: ADMITTED OBSERVATION Admitting Provider: Hospitalist Unit Admitted: Telemetry
[2016-12-23 23:33] LABS: ABSOLUTE EOSINOPHILS # (AUTO) 0.3 10^3/uL (0.0-0.6); ABSOLUTE LYMPHOCYTES (AUTO) 1.1 10^3/uL (0.5-4.7); ABSOLUTE MONOCYTES (AUTO) 0.5 10^3/uL (0.1-1.4); BASOPHILS % (AUTO) 0.8 % (0-2); HEMATOCRIT 40.8 % (37.9-51.0); HEMOGLOBIN 13.8 g/dL (13.5-17.0); HGB HCT DIFFERENCE 0.6; LYMPHOCYTES % (AUTO) 18.3 % (13-45); MEAN CORPUSCULAR HEMOGLOBIN 30.1 pg (27.0-33.4); MEAN CORPUSCULAR HGB CONC 33.9 g/dL (32.0-36.0); MEAN CORPUSCULAR VOLUME 89 fl (80-97); MONOCYTES % (AUTO) 8.4 % (3-13); RED BLOOD COUNT 4.58 10^6/uL (4.35-5.55); RED CELL DISTRIBUTION WIDTH 21.7 % (11.5-14.0); SEGMENTED NEUTROPHILS % (AUTO) 67.5 % (42-78)
[2016-12-23] MEDS ORDERED: FUROSEMIDE INJ/PF 100 MG/10 ML SDV IV ONE (23:43)
[2016-12-23 23:47] LABS: ALANINE AMINOTRANSFERASE 23 U/L (21-72); ALBUMIN 2.6 g/dL (3.5-5.0); ALKALINE PHOSPHATASE 225 U/L (38-126); ANION GAP 6 (5-19); ASPARTATE AMINO TRANSFERASE 40 U/L (17-59); BILIRUBIN,DIRECT 0.6 mg/dL (0.0-0.4); BILIRUBIN,TOTAL 1.6 mg/dL (0.2-1.3); BLOOD UREA NITROGEN 14 mg/dL (7-20); CALCIUM 8.4 mg/dL (8.4-10.2); CARBON DIOXIDE 27 mmol/L (22-30); CHLORIDE 102 mmol/L (98-107); CREATINE KINASE 104 U/L (55-170); CREATININE RESULT 1.18 mg/dL (0.52-1.25); GLUCOSE 112 mg/dL (75-110); POTASSIUM 3.6 mmol/L (3.6-5.0); SODIUM 135.4 mmol/L (137-145); TOTAL PROTEIN 6.2 g/dL (6.3-8.2)
--- NOTE | 2016-12-23 23:51 | RADIOLOGY REPORT (SQ) ---
EXAM DESCRIPTION: CHEST SINGLE VIEW COMPLETED DATE/TIME: 12/23/2016 11:11 pm REASON FOR STUDY: SOB COMPARISON: 11/28/2016 EXAM PARAMETERS: NUMBER OF VIEWS: One view. TECHNIQUE: Single frontal radiographic view of the chest acquired. RADIATION DOSE: NA LIMITATIONS: None. FINDINGS: LUNGS AND PLEURA: No acute opacities, masses or pneumothorax. Similar chronic interstitia l changes and emphysema. No pleural effusion. MEDIASTINUM AND HILAR STRUCTURES: Stable. HEART AND VASCULAR STRUCTURES: Stable. BONES: No acute findings. HARDWARE: None in the chest. OTHER: No other significant finding. IMPRESSION: NO ACUTE RADIOGRAPHIC FINDING IN THE CHEST. TECHNICAL DOCUMENTATION: JOB ID: [id number]
[2016-12-23 23:59] LABS: CREATINE KINASE MB 1.63 ng/mL (<4.55)
[2016-12-24 00:02] LABS: TROPONIN I < 0.012 ng/mL
[2016-12-24 00:26] LABS: APPEARANCE,URINE CLEAR; BILIRUBIN,URINE NEGATIVE (NEGATIVE); GLUCOSE, URINE NEGATIVE (NEGATIVE); KETONES,URINE NEGATIVE (NEGATIVE); LEUKOCYTE ESTERASE,URINE NEGATIVE (NEGATIVE); NITRITE,URINE NEGATIVE (NEGATIVE); PROTEIN,URINE NEGATIVE (NEGATIVE); URINE SPECIFIC GRAVITY 1.005; UROBILINOGEN,URINE NEGATIVE mg/dL (<2.0)
[2016-12-24 00:26] LABS: PROTHROMBIN TIME 18.4 SEC (11.4-15.4)
[2016-12-24] MEDS ORDERED: IPRATROPIUM/ALBUTEROL 0.5-2.5 MG/3 ML AMPUL NEB PRN (00:38)
[2016-12-24] MEDS ORDERED: SPIRONOLACTONE 25 MG TABLET PO SCH ×2 (00:45→12:00)
--- NOTE | 2016-12-24 05:47 | PDOC H&P ---
History of Present Illness Admission Date/PCP: 12/24/16 00:39 Patient complains of: Shortness of breath and edema History of Present Illness: CHATO BRAXTON is a 61 year old male with a past medical history of alpha-1 antitrypsin deficiency, HIT, COPD, hepatic cirrhosis with recurrent ascites and dietary indiscretion. He been in his usual state of health until approximately 4 days ago noting increasing abdominal girth and lower extremity edema. He denies chest pain, nausea vomiting or fever, no change in medications but admits dietary indiscretion eating pickles. In the emergency room is found to be intravascularly depleted with anasarca and is ordered IV Lasix and referred to the hospitalist for admission. Past Medical History Cardiac Medical History: Reports: DVT, Myocardial Infarction, Hypertension - LOW , Pulmonary Embolism Denies: Coronary Artery Disease, Hyperlipidema Pulmonary Medical History: Reports: Chronic Obstructive Pulmonary Disease (COPD ) - 2L NC, Pneumonia Denies: Asthma, Bronchitis, Sleep Apnea, Tuberculosis Neurological Medical History: Denies: Seizures Endocrine Medical History: Reports: Diabetes Mellitus Type 2 Denies: Diabetes Mellitus Type 1, Hyperthyroidism, Hypothyroidism GI Medical History: Reports: Cirrhosis - [place] secondary to alpha-1 antitrypsin deficiency., Gastroesophageal Reflux Disease Denies: Hepatitis Musculoskeltal Medical History: Reports: Arthritis Psychiatric Medical History: Reports: Depression Hematology: 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 Social History Information Source: Patient, [facility] Records Lives with: Spouse/Significant other Smoking Status: Former Smoker Cigarettes Packs Per Day: 1 Number of Years Smokin Frequency of Alcohol Use: None Hx Recreational Drug Use: No Drugs: None Hx Prescription Drug Abuse: No - Advance Directive Resuscitation Status: Full Code Family History Family History: CAD, Hypertension, Other - CHF Parental Family History Reviewed: Yes Children Family History Reviewed: Yes Sibling(s) Family History Reviewed.: Yes Medication/Allergy Home Medications: Bumetanide 1 mg PO BID 11/28/16 Docusate Sodium [Colace 100 mg Capsule] 100 mg PO BID 11/28/16 Gabapentin 600 mg PO DAILY 11/28/16 Midodrine HCl 10 mg PO TID@0600,1130,1500 11/28/16 Omeprazole 20 mg PO DAILY 11/28/16 Ondansetron HCl [Zofran 4 mg Tablet] 4 mg PO Q6HP PRN 11/28/16 Potassium Chloride 10 meq PO BID 11/28/16 Spironolactone [Aldactone] 50 mg PO DAILY 11/28/16 Tamsulosin HCl [Flomax] 0.4 mg PO DAILY 11/28/16 Warfarin Sodium 2 mg PO DAILY 11/28/16 Ipratropium [place] [Atrovent 0.02% Neb 0.5 mg/2.5 ml Ampul] 0.5 mg NEB RTQ6 # 120 vial.neb 12/01/16 Levalbuterol HCl [Xopenex Neb 1.25 mg/3 ml Ampul] 1.25 mg NEB RTQ6 #120 vial.neb 12/01/16 Levofloxacin [Levaquin 750 mg Tablet] 750 mg PO DAILY #5 tablet 12/01/16 Prednisone [Sterapred Ds] 1 pkg PO ASDIR PRN 12 Days tab.ds.pk 12/01/16 Theophylline Anhydrous 300 mg PO DAILY #30 tab.er.12h 12/01/16 Ondansetron [Zofran Odt 4 mg Tablet] 1 - 2 tab PO Q4H PRN #15 tab.rapdis Allergies/Adverse Reactions: Heparin Analogues [Heparin Agents] Allergy (Severe, Verified 11/28/16 11:50) Thrombocytopenia heparinoids [Heparinoids] Allergy (Severe, Verified 11/28/16 11:50) Thrombocytopenia codeine [Codeine] Allergy (Unknown, Verified 11/28/16 11:50) GI upset Penicillins Allergy (Unknown, Verified 11/28/16 11:50) Swelling doxycycline Allergy (Verified 11/28/16 11:50) Review of Systems Constitutional: PRESENT: as per HPI, fatigue, weight gain. ABSENT: fever(s), headache(s), night sweats Eyes: ABSENT: visual disturbances Ears: ABSENT: hearing changes Cardiovascular: PRESENT: dyspnea on exertion. ABSENT: chest pain, edema, orthropnea, palpitations Respiratory: PRESENT: dyspnea. ABSENT: cough, hemoptysis, sputum Gastrointestinal: PRESENT: abdominal pain, bloating. ABSENT: coffee ground emesis, constipation, diarrhea, nausea, vomiting Genitourinary: ABSENT: dysuria, hematuria Musculoskeletal: ABSENT: joint swelling Integumentary: ABSENT: rash, wounds Neurological: ABSENT: abnormal gait, abnormal speech, confusion, dizziness, focal weakness, syncope Psychiatric: ABSENT: anxiety, depression, homidical ideation, suicidal ideation Endocrine: ABSENT: cold intolerance, heat intolerance, polydipsia, polyuria Hematologic/Lymphatic: ABSENT: easy bleeding, easy bruising Physical Exam Vital Signs: Temp Pulse Resp BP Pulse Ox 98.1 F 114 H 20 100/55 L 92 12/24/16 02:12 12/24/16 02:12 12/24/16 02:12 12/24/16 02:12 12/24/16 02:12 Intake & Output 12/22/16 12/23/16 12/24/16 11:59 11:59 11:59 Weight 82.5 kg General appearance: PRESENT: cooperative, mild distress Head exam: PRESENT: atraumatic, normocephalic Eye exam: PRESENT: conjunctiva pink, EOMI, PERRLA. ABSENT: scleral icterus Ear exam: PRESENT: normal external ear exam Mouth exam: PRESENT: moist, tongue midline Neck exam: ABSENT: carotid bruit, JVD, lymphadenopathy, thyromegaly Respiratory exam: PRESENT: crackles, prolonged expiratory phas, tachypnea. ABSENT: wheezes Cardiovascular exam: PRESENT: RRR, +S1, +S2 Pulses: PRESENT: normal dorsalis pedis pul Vascular exam: PRESENT: normal capillary refill GI/Abdominal exam: PRESENT: ascites, diminished bowel sounds, distended, hernia - Umbilical, tenderness. ABSENT: firm, guarding, hyperactive bowel sounds Rectal exam: PRESENT: deferred Extremities exam: PRESENT: +2 edema Neurological exam: PRESENT: alert, awake, oriented to person, oriented to place , oriented to time, oriented to situation, CN II-XII grossly intact. ABSENT: motor sensory deficit Psychiatric exam: PRESENT: appropriate affect, normal mood. ABSENT: homicidal ideation, suicidal ideation Skin exam: PRESENT: dry, intact, warm. ABSENT: cyanosis, rash Results Impressions: Chest X-Ray 12/23/16 23:00 IMPRESSION: NO ACUTE RADIOGRAPHIC FINDING IN THE CHEST. Assessment & Plan - Diagnosis (1) Ascites Qualifiers: Ascites type: other type Qualified Code(s): R18.8 - Other ascites Is this a current diagnosis for this admission?: Yes Plan: Secondary to hepatic cirrhosis and alpha-1 antitrypsin antibody, complicated by dietary indiscretion. No evidence for SBP, diuresis and education follow-up chemistry. (2) Tachycardia Is this a current diagnosis for this admission?: Yes Plan: Secondary to intravascular volume depletion. Consider albumin. (3) Hypoalbuminemia Is this a current diagnosis for this admission?: Yes Plan: Secondary to hepatic cirrhosis consider albumin. (4) Thrombocytopenia Is this a current diagnosis for this admission?: Yes Plan: Chronic, secondary to hepatic cirrhosis reevaluate CBC. - Time Time Spent: 30 to 50 Minutes - Inpatient Certification Medical Necessity: Need Close Monitoring Due to Risk of Patient Decompensation
[2016-12-24 07:37] LABS: ABSOLUTE EOSINOPHILS # (AUTO) 0.3 10^3/uL (0.0-0.6); ABSOLUTE LYMPHOCYTES (AUTO) 0.7 10^3/uL (0.5-4.7); ABSOLUTE MONOCYTES (AUTO) 0.4 10^3/uL (0.1-1.4); ABSOLUTE NEUT (AUTO) 2.9 10^3/uL (1.7-8.2); BASOPHILS % (AUTO) 0.6 % (0-2); EOSINOPHILS % (AUTO) 6.1 % (0-6); HEMATOCRIT 37.4 % (37.9-51.0); HEMOGLOBIN 12.8 g/dL (13.5-17.0); LYMPHOCYTES % (AUTO) 16.7 % (13-45); MEAN CORPUSCULAR HEMOGLOBIN 30.5 pg (27.0-33.4); MEAN CORPUSCULAR HGB CONC 34.1 g/dL (32.0-36.0); MEAN CORPUSCULAR VOLUME 89 fl (80-97); MONOCYTES % (AUTO) 9.9 % (3-13); RED BLOOD COUNT 4.19 10^6/uL (4.35-5.55); RED CELL DISTRIBUTION WIDTH 21.3 % (11.5-14.0); SEGMENTED NEUTROPHILS % (AUTO) 66.7 % (42-78); WHITE BLOOD COUNT 4.3 10^3/uL (4.0-10.5)
[2016-12-24 07:50] LABS: ALANINE AMINOTRANSFERASE 26 U/L (21-72); ALBUMIN 2.3 g/dL (3.5-5.0); ALKALINE PHOSPHATASE 198 U/L (38-126); ANION GAP 7 (5-19); ASPARTATE AMINO TRANSFERASE 37 U/L (17-59); BILIRUBIN,DIRECT 0.6 mg/dL (0.0-0.4); BILIRUBIN,TOTAL 1.7 mg/dL (0.2-1.3); BLOOD UREA NITROGEN 14 mg/dL (7-20); CALCIUM 8.4 mg/dL (8.4-10.2); CARBON DIOXIDE 27 mmol/L (22-30); CHLORIDE 102 mmol/L (98-107); CREATININE RESULT 1.11 mg/dL (0.52-1.25); GLUCOSE 91 mg/dL (75-110); POTASSIUM 3.5 mmol/L (3.6-5.0); SODIUM 136.2 mmol/L (137-145); TOTAL PROTEIN 5.5 g/dL (6.3-8.2)
[2016-12-24] MEDS ORDERED: ONDANSETRON HCL INJ/PF 4 MG/2 ML SDV IV PRN (08:23)
[2016-12-24] MEDS ORDERED: DOCUSATE SODIUM 100 MG/10 ML UDC PO SCH (10:00)
[2016-12-24] MEDS ORDERED: DOCUSATE SODIUM 100 MG CAPSULE PO SCH (10:00)
[2016-12-24] MEDS ORDERED: FUROSEMIDE INJ/PF 40 MG/4 ML SDV IV SCH (10:00)
[2016-12-24] MEDS ORDERED: MIDODRINE HCL 5 MG TABLET PO ONE (11:00)
[2016-12-24] MEDS ORDERED: ONDANSETRON 4 MG TAB.RAPDIS PO PRN (11:01)
[2016-12-24] MEDS ORDERED: PHARMACY COMMUNICATION ORDER MC NR (11:15)
[2016-12-24] MEDS: LANSOPRAZOLE 15 MG TAB.RAP.DR PO SCH (11:28)
[2016-12-24] MEDS: SPIRONOLACTONE 25 MG TABLET PO SCH ×2 (11:29→21:38)
[2016-12-24] MEDS ORDERED: (PENDING PHARMACY ID) (Midodrine Hcl [Midodrine Hcl] 10 MG) PO SCH (11:30)
[2016-12-24] MEDS ORDERED: GABAPENTIN 300 MG CAPSULE PO SCH ×2 (12:00→18:00)
[2016-12-24] MEDS ORDERED: BUMETANIDE INJ/PF 1 MG/4 ML SDV IV ONE (12:00)
[2016-12-24] MEDS: MIDODRINE HCL 5 MG TABLET PO SCH ×2 (12:30→15:47)
[2016-12-24] MEDS: IPRATROPIUM BROMIDE 0.02% NEB 0.5 MG/2.5 ML AMPUL NEB SCH ×2 (13:36→20:03)
[2016-12-24] MEDS: LEVALBUTEROL HCL NEB 1.25 MG/3 ML AMPUL NEB SCH ×2 (13:36→20:03)
[2016-12-24] MEDS ORDERED: ALBUMIN HUMAN 200 ML IV PRN (14:24)
[2016-12-24] MEDS ORDERED: ALBUMIN HUMAN 50 ML IV SCH (14:30)
--- NOTE | 2016-12-24 15:32 | RADIOLOGY REPORT (SQ) ---
EXAM DESCRIPTION: U/S ABD PARACENTESIS COMPLETED DATE/TIME: 12/24/2016 3:11 pm REASON FOR STUDY: ascites COMPARISON 05/02/2015 LIMITATIONS: None. PROCEDURE: After obtaining informed consent, the patient was brought to the ultrasound suite. The p rocedure was performed with the patient on a gurney. Ultrasound was used to identify a prominent poc ket of ascites in the right lower quadrant. An appropriate access site was selected. The patient wa s prepped and draped in usual sterile fashion. The access site was anesthetized with 8 mL 1% lidoca ine. A Eazp-T-Xpkyhzpr needle was advanced into the fluid. After aspiration of fluid the needle, th e catheter was advanced off the needle into the fluid. A total of 1,300 mL of straw colored cloudy f luid was removed. The patient tolerated the procedure well left the department in satisfactory condit ion. IMPRESSION: Successful ultrasound-guided diagnostic and therapeutic paracentesis COMMENT: Patient medication list reviewed: Yes- Quality ID# [id number]:Eligible professional attests to doc umenting in the medical record they obtained, updated, or reviewed the patient's current medications. Quality ID #[id number]: The patient was prepped and draped using maximum sterile barrier technique including cap, mask, sterile gown, sterile gloves, a large sterile sheet, hand hygiene, and 2% Chlorhexidine fo r cutaneous antisepsis. When ultrasound is used, sterile ultrasound techniques are followed requiring sterile gel and sterile probes. Quality ID #[id number]: Final reports for procedures using fluoroscopy that document radiation exposure tg sherwin, or exposure time and number of fluorographic images (if radiation exposure indices are not avail able) TECHNICAL DOCUMENTATION: JOB ID: [id number] [employer]- All Rights Reserved
[2016-12-24 15:46] LABS: FLUID TYPE PERITONEAL
[2016-12-24 15:47] LABS: FLUID APPEARANCE SLIGHTLY HAZY; FLUID RBC AVERAGE 141.5; FLUID RBC DILUENT USED NONE USED; FLUID RBC DILUTION FACTOR 1; FLUID RBC SIDE 1 132; FLUID RBC SIDE 2 151; TOTAL RBC SQUARES COUNTED FLD 50
[2016-12-24] MEDS: POTASSIUM CHLORIDE 10 MEQ TABLET.SA PO SCH (17:31)
[2016-12-24] MEDS: DOCUSATE SODIUM 100 MG CAPSULE PO SCH (17:31)
[2016-12-24] MEDS: BUMETANIDE INJ/PF 1 MG/4 ML SDV IV SCH (17:33)
--- NOTE | 2016-12-24 21:59 | EKG REPORT ---
SEVERITY:- ABNORMAL ECG - SINUS TACHYCARDIA LOW VOLTAGE WITH RIGHT AXIS DEVIATION BORDERLINE R WAVE PROGRESSION, ANTERIOR LEADS : Confirmed by: Stepan Benson 24-Dec-2016 21:58:42
[2016-12-24] MEDS ORDERED: WARFARIN SODIUM 2.5 MG TABLET PO SCH (22:00)
[2016-12-25] MEDS: LEVALBUTEROL HCL NEB 1.25 MG/3 ML AMPUL NEB SCH ×2 (01:39→08:36)
[2016-12-25] MEDS: IPRATROPIUM BROMIDE 0.02% NEB 0.5 MG/2.5 ML AMPUL NEB SCH ×2 (01:39→08:36)
[2016-12-25 05:12] LABS: ABSOLUTE EOSINOPHILS # (AUTO) 0.3 10^3/uL (0.0-0.6); ABSOLUTE LYMPHOCYTES (AUTO) 0.8 10^3/uL (0.5-4.7); ABSOLUTE MONOCYTES (AUTO) 0.4 10^3/uL (0.1-1.4); ABSOLUTE NEUT (AUTO) 2.5 10^3/uL (1.7-8.2); BASOPHILS % (AUTO) 1.1 % (0-2); EOSINOPHILS % (AUTO) 6.5 % (0-6); HEMATOCRIT 33.2 % (37.9-51.0); HEMOGLOBIN 11.2 g/dL (13.5-17.0); HGB HCT DIFFERENCE 0.4; LYMPHOCYTES % (AUTO) 19.8 % (13-45); MEAN CORPUSCULAR HEMOGLOBIN 30.4 pg (27.0-33.4); MEAN CORPUSCULAR HGB CONC 33.9 g/dL (32.0-36.0); MEAN CORPUSCULAR VOLUME 90 fl (80-97); MONOCYTES % (AUTO) 10.4 % (3-13); RED CELL DISTRIBUTION WIDTH 21.3 % (11.5-14.0); SEGMENTED NEUTROPHILS % (AUTO) 62.2 % (42-78)
[2016-12-25 05:27] LABS: ALANINE AMINOTRANSFERASE 23 U/L (21-72); ALBUMIN 2.3 g/dL (3.5-5.0); ALKALINE PHOSPHATASE 161 U/L (38-126); ASPARTATE AMINO TRANSFERASE 28 U/L (17-59); BILIRUBIN,DIRECT 0.4 mg/dL (0.0-0.4); BILIRUBIN,TOTAL 0.9 mg/dL (0.2-1.3); BLOOD UREA NITROGEN 15 mg/dL (7-20); CALCIUM 8.4 mg/dL (8.4-10.2); CHLORIDE 100 mmol/L (98-107); CREATININE RESULT 1.19 mg/dL (0.52-1.25); GLUCOSE 94 mg/dL (75-110); POTASSIUM 3.9 mmol/L (3.6-5.0)
[2016-12-25 05:37] LABS: ANION GAP 5 (5-19); CARBON DIOXIDE 30 mmol/L (22-30); SODIUM 135.4 mmol/L (137-145)
[2016-12-25] MEDS: MIDODRINE HCL 5 MG TABLET PO SCH ×2 (06:23→10:59)
[2016-12-25] MEDS: LANSOPRAZOLE 15 MG TAB.RAP.DR PO SCH (06:26)
[2016-12-25] MEDS: POTASSIUM CHLORIDE 10 MEQ TABLET.SA PO SCH (09:44)
[2016-12-25] MEDS: DOCUSATE SODIUM 100 MG CAPSULE PO SCH (09:45)
[2016-12-25] MEDS: SPIRONOLACTONE 25 MG TABLET PO SCH (09:45)
[2016-12-25] MEDS: BUMETANIDE INJ/PF 1 MG/4 ML SDV IV SCH (09:45)
[2016-12-25] MEDS ORDERED: TAMSULOSIN HCL 0.4 MG CAP.SR.24H PO SCH (10:00)
[2016-12-25] MEDS ORDERED: (PENDING PHARMACY ID) (Spironolactone [Aldactone] 50 MG) PO SCH (10:00)
[2016-12-25] MEDS ORDERED: THEOPHYLLINE ANHYDROUS 300 MG TAB.SR.12H PO SCH (10:00)
[2016-12-25] MEDS ORDERED: ALBUMIN HUMAN 50 ML IV SCH (11:00)
[2016-12-25 11:12] VITALS: BP 100/55
--- NOTE | 2016-12-25 14:58 | PDOC DISCHARGE SUMMARY ---
General - Admit/Disc Date/PCP Admission Date/Primary Care Provider: 12/24/16 00:39 Discharge Date: 12/25/16 - Discharge Diagnosis (1) Cirrhosis of liver with ascites Is this a current diagnosis for this admission?: Yes (2) BPH (benign prostatic hyperplasia) Is this a current diagnosis for this admission?: No (3) CAD (coronary artery disease) Is this a current diagnosis for this admission?: Yes (4) CHF (congestive heart failure) Is this a current diagnosis for this admission?: No (5) Diabetes mellitus type II, controlled Is this a current diagnosis for this admission?: Yes (6) [id number] deficiency Is this a current diagnosis for this admission?: Yes (7) Ascites Is this a current diagnosis for this admission?: Yes (8) COPD (chronic obstructive pulmonary disease) Is this a current diagnosis for this admission?: Yes (9) Chronic respiratory failure with hypoxia Is this a current diagnosis for this admission?: Yes (10) Diabetes mellitus type 2 in nonobese Is this a current diagnosis for this admission?: Yes (11) Gastroesophageal reflux disease Is this a current diagnosis for this admission?: Yes (12) History of pulmonary embolism Is this a current diagnosis for this admission?: Yes (13) Hypotension Is this a current diagnosis for this admission?: Yes - Additional Information Resuscitation Status: Full Code Discharge Diet: Cardiac Discharge Activity: Activity As Tolerated Home Medications: Gabapentin 300 mg PO QHS 12/24/16 Gabapentin [Neurontin] 600 mg PO DAILY 12/24/16 Omeprazole 20 mg PO DAILY 12/24/16 Bumetanide [Bumex 2 mg Tablet] 1 tab PO BID #60 tab 12/25/16 Docusate Sodium [Colace 100 mg Capsule] 100 mg PO BID #60 capsule 12/25/16 Ipratropium [place] [Atrovent 0.02% Neb 0.5 mg/2.5 ml Ampul] 1 vial NEB RTQ6 #1 pkg 12/25/16 Levalbuterol HCl [Xopenex Neb 1.25 mg/3 ml Ampul] 1 vial NEB RTQ6 #1 packet 06/11 Midodrine HCl 10 mg PO TID@0600,1130,1500 #90 tablet 12/25/16 Ondansetron [Zofran Odt 4 mg Tablet] 4 mg PO Q6HP PRN #10 tab.rapdis 12/25/16 Potassium Bicarbonate/Cit AC [Klor-Con-Ef 25 Meq Tab Eff] 25 meq PO BID #60 tablet.eff 12/25/16 Prednisone [Sterapred Ds] 10 mg PO ASDIR PRN #1 pkg 12/25/16 Spironolactone [Aldactone] 50 mg PO DAILY #30 tablet 12/25/16 Tamsulosin HCl [Flomax 0.4 mg Cap.sr] 0.4 mg PO DAILY #30 cap.sr.24h 12/25/16 Theophylline Anhydrous [Partha-Dur 300 mg Tab.sr] 300 mg PO DAILY #30 tab.sr.12h 12/25/16 History of Present Illness History of Present Illness: Please see H&P for full HPI Hospital Course Hospital Course: Patient is a 61-year-old male who is well-known to this service for his history of alpha-1 antitrypsin deficiency with subsequent severe COPD and cirrhosis of the liver who presented with increased abdominal distention and pain. Patient was found to have gross ascites. Patient underwent therapeutic and diagnostic paracentesis. Patient was much improved after this. He was not having any fevers, chills, worsening white count or abdominal pain. Patient received albumin after his paracentesis. Patient's Coumadin was stopped prior to this. We discussed at length the risk of stopping his Coumadin permanently because he does have a personal history of a pulmonary embolus more than 1 year ago. At this time, patient would like to stop his Coumadin as he is going to likely need an increased number of therapeutic paracenteses in the coming months. Patient is a chronically hypotensive treated with midodrine which permits the use of Bumex and spironolactone, but does limit her overall ability to diurese this patient effectively. He understands and accepts this risk and will follow up with his primary care physician in order to establish a regular paracentesis schedule. Physical Exam Vital Signs: Temp Pulse Resp BP Pulse Ox 98.1 F 97 16 100/55 L 93 12/25/16 11:04 12/25/16 11:04 12/25/16 11:04 12/25/16 11:04 12/25/16 11:04 Intake & Output 12/24/16 12/25/16 12/26/16 06:59 06:59 06:59 Intake Total 0 2275 Output Total 150 1225 Balance -150 1050 Weight 82.5 kg 85.9 kg Exam: General: Awake alert and oriented x3, no acute respiratory distress HEENT: AT/NC, PERRL, EOMI, oropharynx is moist, pink, no scleral icterus, no conjunctival injection Neck: No JVD, trachea midline Chest: Generalized poor air excursion, otherwise clear to auscultation bilaterally CV: Regular rate and rhythm, normal S1 and S2, no rub or gallop Abdomen: Soft, nontender to palpation, mildly distended, active bowel sounds; no rebound, rigidity, or guarding Extremities: No cyanosis;+ clubbing; 3+edema Neuro: Cranial nerves II through XII are grossly intact without focal deficits; awake alert and oriented x3 Psych: Normal mood and affect Results Laboratory Results: 12/25/16 04:33 12/25/16 04:33 12/24/16 12/25/16 12/25/16 14:35 04:33 04:33 WBC 4.0 RBC 3.70 L Hgb 11.2 L Hct 33.2 L MCV 90 MCH 30.4 MCHC 33.9 RDW 21.3 H Plt Count 73 L Seg Neutrophils % 62.2 Lymphocytes % 19.8 Monocytes % 10.4 Eosinophils % 6.5 H Basophils % 1.1 Absolute Neutrophils 2.5 Absolute Lymphocytes 0.8 Absolute Monocytes 0.4 Absolute Eosinophils 0.3 Absolute Basophils 0.0 Sodium 135.4 L Potassium 3.9 Chloride 100 Carbon Dioxide 30 Anion Gap 5 BUN 15 Creatinine 1.19 Est GFR ( Amer) > 60 Est GFR (Non-Af Amer) > 60 Glucose 94 Calcium 8.4 Total Bilirubin 0.9 AST 28 ALT 23 Alkaline Phosphatase 161 H Total Protein 5.0 L Albumin 2.3 L Fluid Type PERITONEAL Fluid Source ASCITES Fluid Color STRAW Fluid Appearance SLIGHTLY HAZY Fluid Viscosity LIQUID Fluid WBC 78 Fluid RBC 707 Impressions: Chest X-Ray 12/23/16 23:00 IMPRESSION: NO ACUTE RADIOGRAPHIC FINDING IN THE CHEST. Paracentesis Ultrasound 12/24/16 00:00 IMPRESSION: Successful ultrasound-guided diagnostic and therapeutic paracentesis Qualifiers PATEINT BEING DISCHARGED WITH ANY OF THE FOLLOWING DIAGNOSIS?: No Plan Time Spent: Greater than 30 Minutes
== END 2016-12-25 11:50 | disposition home or self-care (01) | DRG 433 ==
LOC: ER 22:23 → EH 12-24 00:32 → UNDOADMIN 12-24 00:32 → EH 12-24 00:39 → 3S 12-24 02:12
PROVIDERS: ADMIT Internal Medicine; ATTEND Internal Medicine
PROC: 0W9G3ZZ Drainage of Peritoneal Cavity, Percutaneous Approach (ICD-10-PCS; principal; 2016-12-24)
DX: K74.69 Other cirrhosis of liver (principal); R18.8 Other ascites; J96.11 Chronic respiratory failure with hypoxia; J44.9 Chronic obstructive pulmonary disease, unspecified; N40.0 Benign prostatic hyperplasia without lower urinary tract symptoms; I25.10 Atherosclerotic heart disease of native coronary artery without angina pectoris; E11.9 Type 2 diabetes mellitus without complications; E88.01 Alpha-1-antitrypsin deficiency; I95.89 Other hypotension; D69.6 Thrombocytopenia, unspecified; E88.09 Other disorders of plasma-protein metabolism, not elsewhere classified; K21.9 Gastro-esophageal reflux disease without esophagitis; M19.90 Unspecified osteoarthritis, unspecified site; Z79.01 Long term (current) use of anticoagulants; Z79.899 Other long term (current) drug therapy; Z86.711 Personal history of pulmonary embolism; I25.2 Old myocardial infarction; Z86.14 Personal history of Methicillin resistant Staphylococcus aureus infection; F17.210 Nicotine dependence, cigarettes, uncomplicated; Z88.0 Allergy status to penicillin; Z88.8 Allergy status to other drugs, medicaments and biological substances
CPT/HCPCS: 36415; 49083; 71010; 80053; 81001; 82042; 82550; 82553; 82962; 83880; 84484; 85025; 85610; 87040; 87070; 87075; 87205; 88305; 89050; 93005; 93010; 94640; 99285; J2405; J3490; J7620; P9047

== ENCOUNTER 2016-12-26 17:53 | Emergency (ER) | payer MEDICARE, OTHER ==
--- NOTE | 2016-12-26 19:28 | ER Document Report ---
ED Medical Screen (RME) - General Chief Complaint: Abdominal Pain Stated Complaint: STOMACH PAIN Time Seen by Provider: 12/26/16 18:52 Mode of Arrival: Wheelchair Information source: Patient Notes: 61-year-old male history of ascites CHF COPD presents with complaints of abdominal distention pain, patient was recently tapped a few days prior notes the fluid has increased since I have greeted and performed a rapid initial assessment of this patient. A comprehensive ED assessment and evaluation of the patient, analysis of test results and completion of the medical decision making process will be conducted by additional ED providers. PHYSICAL EXAMINATION: GENERAL: Well-appearing, well-nourished and in no acute distress. HEAD: Atraumatic, normocephalic. EYES: Pupils equal round extraocular movements intact, conjunctiva are normal. ENT: Nares patent NECK: Normal range of motion LUNGS: Coarse breath sounds at his baseline Musculoskeletal: Normal range of motion NEUROLOGICAL: Normal speech, normal gait. PSYCH: Normal mood, normal affect. SKIN: Warm, Dry, normal turgor, no rashes or lesions noted. TRAVEL OUTSIDE OF THE [place] IN LAST 30 DAYS: No - Related Data Allergies/Adverse Reactions: Heparin Analogues [Heparin Agents] Allergy (Severe, Verified 11/28/16 11:50) Thrombocytopenia heparinoids [Heparinoids] Allergy (Severe, Verified 11/28/16 11:50) Thrombocytopenia codeine [Codeine] Allergy (Unknown, Verified 11/28/16 11:50) GI upset Penicillins Allergy (Unknown, Verified 11/28/16 11:50) Swelling doxycycline Allergy (Verified 11/28/16 11:50) Past Medical History - Social History Chew tobacco use (# tins/day): No Frequency of alcohol use: None Drug Abuse: None Family history: CAD - Past Medical History Cardiac Medical History: Reports: Hx Congestive Heart Failure - Left ventricular diastolic dysfunction, Hx DVT, Hx Heart Attack, Hx Hypertension - LOW, Hx Pulmonary Embolism Denies: Hx Coronary Artery Disease, Hx Hypercholesterolemia Pulmonary Medical History: Reports: Hx COPD - 2L [place], Hx Pneumonia Denies: Hx Asthma, Hx Bronchitis, Hx Sleep Apnea, Hx Tuberculosis Neurological Medical History: Denies: Hx Cerebrovascular Accident, Hx Seizures Endocrine Medical History: Reports: Hx Diabetes Mellitus Type 2. 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 Denies: Hx Hepatitis Musculoskeltal Medical History: Reports Hx Arthritis Psychiatric Medical History: Reports: Hx Depression Infectious Medical History: Reports: Hx C-Diff, Hx MRSA. Denies: Hx Hepatitis Past Surgical History: Reports: Other - Left chest tube insertion. - Immunizations Hx Diphtheria, Pertussis, Tetanus Vaccination: Yes Physical Exam - Vital signs Vitals: Temp Pulse Resp BP Pulse Ox 97.8 F 105 H 22 H 99/68 L 93 12/26/16 18:03 12/26/16 18:03 12/26/16 18:03 12/26/16 18:03 12/26/16 18:03 Course - Vital Signs Vital signs: Temp Pulse Resp BP Pulse Ox 97.8 F 105 H 22 H 99/68 L 93 12/26/16 18:03 12/26/16 18:03 12/26/16 18:03 12/26/16 18:03 12/26/16 18:03
[2016-12-26 19:40] LABS: ABSOLUTE EOSINOPHILS # (AUTO) 0.2 10^3/uL (0.0-0.6); ABSOLUTE LYMPHOCYTES (AUTO) 0.9 10^3/uL (0.5-4.7); ABSOLUTE MONOCYTES (AUTO) 0.4 10^3/uL (0.1-1.4); ABSOLUTE NEUT (AUTO) 3.3 10^3/uL (1.7-8.2); EOSINOPHILS % (AUTO) 4.8 % (0-6); HEMATOCRIT 40.6 % (37.9-51.0); HGB HCT DIFFERENCE 0.8; LYMPHOCYTES % (AUTO) 17.7 % (13-45); MEAN CORPUSCULAR VOLUME 88 fl (80-97); RED BLOOD COUNT 4.59 10^6/uL (4.35-5.55); RED CELL DISTRIBUTION WIDTH 22.4 % (11.5-14.0); SEGMENTED NEUTROPHILS % (AUTO) 67.5 % (42-78); WHITE BLOOD COUNT 4.8 10^3/uL (4.0-10.5)
[2016-12-26] MEDS ORDERED: IPRATROPIUM/ALBUTEROL 0.5-2.5 MG/3 ML AMPUL NEB ONE (19:48)
[2016-12-26 19:50] LABS: ALANINE AMINOTRANSFERASE 39 U/L (21-72); ALBUMIN 3.1 g/dL (3.5-5.0); ALKALINE PHOSPHATASE 200 U/L (38-126); ANION GAP 7 (5-19); ASPARTATE AMINO TRANSFERASE 53 U/L (17-59); BILIRUBIN,DIRECT 0.6 mg/dL (0.0-0.4); BILIRUBIN,TOTAL 1.4 mg/dL (0.2-1.3); BLOOD UREA NITROGEN 16 mg/dL (7-20); CALCIUM 8.8 mg/dL (8.4-10.2); CARBON DIOXIDE 28 mmol/L (22-30); CHLORIDE 101 mmol/L (98-107); CREATININE RESULT 1.19 mg/dL (0.52-1.25); GLUCOSE 92 mg/dL (75-110); POTASSIUM 4.2 mmol/L (3.6-5.0); SODIUM 136.4 mmol/L (137-145); TOTAL PROTEIN 6.7 g/dL (6.3-8.2)
[2016-12-26 19:56] LABS: HEMOGLOBIN 13.8 g/dL (13.5-17.0)
--- NOTE | 2016-12-26 19:59 | ER Document Report ---
ED General - General Chief Complaint: Abdominal Pain Stated Complaint: STOMACH PAIN Time Seen by Provider: 12/26/16 18:52 Mode of Arrival: Wheelchair Notes: patient is a 61 year old male who returns to the Ed after discharge yesterday complaining of abdominal distension. He was admitted on 12/24 for fluid overload with hypoxia and ascites, he underwent paracentesis on 12/25 for 1.3L of fluid and was discharged home. He admits today, that he feels distended and that the fluid has come back with mild shortness of breath. He states he has been taking his medications as instructed but not his breathing treatments due to family visiting. PMH: alpha-1 antitrypsin deficiency, HIT, COPD, hepatic cirrhosis with recurrent ascites and dietary indiscretion. TRAVEL OUTSIDE OF THE [place] IN LAST 30 DAYS: No - Related Data Allergies/Adverse Reactions: Heparin Analogues [Heparin Agents] Allergy (Severe, Verified 11/28/16 11:50) Thrombocytopenia heparinoids [Heparinoids] Allergy (Severe, Verified 11/28/16 11:50) Thrombocytopenia codeine [Codeine] Allergy (Unknown, Verified 11/28/16 11:50) GI upset Penicillins Allergy (Unknown, Verified 11/28/16 11:50) Swelling doxycycline Allergy (Verified 11/28/16 11:50) Past Medical History - General Information source: Patient - Social History Smoking Status: Former Smoker Chew tobacco use (# tins/day): No Frequency of alcohol use: None Drug Abuse: None Family History: CAD, Hypertension, Other - CHF Patient has suicidal ideation: No Patient has homicidal ideation: No - Past Medical History Cardiac Medical History: Reports: Hx Congestive Heart Failure - Left ventricular diastolic dysfunction, Hx DVT, Hx Heart Attack, Hx Hypertension - LOW, Hx Pulmonary Embolism Denies: Hx Coronary Artery Disease, Hx Hypercholesterolemia Pulmonary Medical History: Reports: Hx COPD - 2L NC, Hx Pneumonia Denies: Hx Asthma, Hx Bronchitis, Hx Sleep Apnea, Hx Tuberculosis Neurological Medical History: Denies: Hx Cerebrovascular Accident, Hx Seizures Endocrine Medical History: Reports: Hx Diabetes Mellitus Type 2. 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 Denies: Hx Hepatitis Musculoskeltal Medical History: Reports Hx Arthritis Psychiatric Medical History: Reports: Hx Depression Infectious Medical History: Reports: Hx C-Diff, Hx MRSA. Denies: Hx Hepatitis Past Surgical History: Reports: Other - Left chest tube insertion. - Immunizations Hx Diphtheria, Pertussis, Tetanus Vaccination: Yes Hx Pneumococcal Vaccination: 04/05/14 Review of Systems - Review of Systems Notes: REVIEW OF SYSTEMS: CONSTITUTIONAL : Denies fever, chills, or sweats. Denies recent illness. EENT: Denies eye, ear, throat, or mouth pain or symptoms. Denies nasal or sinus congestion or discharge. Denies throat, tongue, or mouth swelling or difficulty swallowing. CARDIOVASCULAR: Denies chest pain. Denies palpitations or racing or irregular heart beat. Denies ankle edema. RESPIRATORY: Denies cough, cold, or chest congestion. Denies shortness of breath, difficulty breathing, or wheezing. GASTROINTESTINAL: See HPI. Denies nausea, vomiting, or diarrhea. Denies blood in vomitus, stools, or per rectum. Denies black, tarry stools. Denies constipation. GENITOURINARY: Denies difficulty urinating, painful urination, burning, frequency, blood in urine, or discharge. FEMALE GENITOURINARY: Denies vaginal bleeding, heavy or abnormal periods, irregular periods. Denies vaginal discharge or odor. MUSCULOSKELETAL: Denies any muscle spasms, difficulty walking, extremity pain SKIN: Denies rash, lesions or sores. HEMATOLOGIC : Denies easy bruising or bleeding. LYMPHATIC: Denies swollen, enlarged glands. NEUROLOGICAL: Denies confusion or altered mental status. Denies passing out or loss of consciousness. Denies dizziness or lightheadedness. Denies headache. Denies weakness or paralysis or loss of use of either side. Denies problems with gait or speech. Denies sensory loss, numbness, or tingling. Denies seizures. PSYCHIATRIC: Denies anxiety or stress. Denies depression, suicidal ideation, or homicidal ideation. ALL OTHER SYSTEMS REVIEWED AND NEGATIVE. Dictation was performed using [employer] voice recognition software Physical Exam - Vital signs Vitals: Temp Pulse Resp BP Pulse Ox 97.8 F 105 H 22 H 99/68 L 93 12/26/16 18:03 12/26/16 18:03 12/26/16 18:03 12/26/16 18:03 12/26/16 18:03 - Notes Notes: PHYSICAL EXAM GENERAL: Alert, interacts well. HEAD: Normocephalic, atraumatic. EYES: Pupils equal, round, and reactive to light. Extraocular movements intact. ENT: Oral mucosa moist, tongue midline. NECK: Full range of motion. Supple. Trachea midline. LUNGS: Clear to auscultation bilaterally, no wheezes, rales, or rhonchi. No respiratory distress. HEART: Regular rate and rhythm. No murmurs, gallops, or rubs. ABDOMEN: Soft, moderately distended, nontender. No guarding, rebound, or rigidity.. Bowel sounds present in all 4 quadrants. EXTREMITIES: Moves all 4 extremities spontaneously. 3+ pitting edema in b/l lower extremities, radial and dorsalis pedis pulses 2/4 bilaterally. No cyanosis. NEUROLOGICAL: Alert and oriented x4. Normal speech. PSYCH: Normal affect, normal mood. SKIN: Warm, dry, normal turgor. No rashes or lesions noted. Course - Re-evaluation Re-evalutation: 12/26/16 22:37 Patient is a 61 year old male who presents with abdominal distension. Patient is hemodynamically stable, no acute distress afebrile. Satting at 95% on home O2. He should feel to ambulate without any difficulty. Labs stable without any evidence of leukocytosis or anemia. Liver function is stable from when he was discharged yesterday. CT stable with small amount of ascites. Patient will be discharged home to follow-up with outpatient primary care to set up for routine paracentesis. Patient agrees with plan. After performing a Medical Screening Examination, I estimate there is LOW risk for ACUTE APPENDICITIS, BOWEL OBSTRUCTION, ACUTE CHOLECYSTITIS, PERFORATED DIVERTICULITIS, INCARCERATED HERNIA, PANCREATITIS, or PERFORATED ULCER, thus I consider the discharge disposition reasonable. Also, there is no evidence or peritonitis, sepsis, or toxicity. I have reevaluated this patient multiple times and no significant life threatening changes are noted. The patient and I have discussed the diagnosis and risks, and we agree with discharging home with close follow-up with the understanding that symptoms and presentations can change. We also discussed returning to the Emergency Department immediately if new or worsening symptoms occur. We have discussed the symptoms which are most concerning (e.g., bloody stool, fever, changing or worsening pain, intractable vomiting - standard verbal up date) that necessitate immediate return. - Vital Signs Vital signs: Temp Pulse Resp BP Pulse Ox 97.8 F 105 H 20 109/68 93 12/26/16 18:03 12/26/16 18:03 12/26/16 20:51 12/26/16 20:52 12/26/16 20:51 - Laboratory Result Diagrams: 12/26/16 19:20 12/26/16 19:20 Laboratory results interpreted by me: 12/26/16 12/26/16 19:20 19:20 RDW 22.4 H Plt Count 110 L Sodium 136.4 L Total Bilirubin 1.4 H Direct Bilirubin 0.6 H Alkaline Phosphatase 200 H Albumin 3.1 L - Diagnostic Test Radiology reviewed: Image reviewed, Reports reviewed Discharge - Discharge Clinical Impression: Ascites Qualifiers: Ascites type: other type Qualified Code(s): R18.8 - Other ascites Condition: Stable Disposition: HOME, SELF-CARE Additional Instructions: ABDOMINAL PAIN: There are many causes of abdominal pain. Pain can mean a serious problem requiring surgery (such as appendicitis). It can also be an innocent problem that goes away on its own (such as a viral infection). Often, time must pass to determine the cause of pain. The physician does not feel that hospitalization is necessary, at present. Things may change within the next 24 hours. Call the doctor or come back for re- examination if any problems occur, such as: (1) Pain that becomes more severe, steady, or becomes concentrated in one specific area. Also, pain that is more severe with movement or coughing. (2) Vomiting that persists or becomes more frequent. (3) Blood in the vomitus, urine, or bowel movements. Blood in the stool may have a tarry or black appearance. (4) Shaking chills or fever greater than 100 degrees F. (5) The abdomen becomes more distended or swollen. (6) Bowel movements cease. (7) Failure to improve as expected. NORMAL EXAM AND WORKUP: At this time, your examination and workup show no significant abnormality. No significant abnormal physical findings are noted. All laboratory, EKG, and imaging (x-ray, CT scans, ultrasound) studies that were ordered show no significant abnormality. Shows small amount of ascites but nothhing that requires drainage today. Although your examination and all studies that were ordered showed no significant abnormal finding, there are no examinations and no studies that are 100% accurate. There is always the possibility that some abnormality could exist and not be detected with physical examination or within the limits and capabilities of laboratory and other studies. You should return or follow up as you were instructed on your visit today for further evaluation if your symptoms do not resolve. FOLLOW-UP CARE: If you have been referred to a physician for follow-up care, call the physician s office for an appointment as you were instructed or within the next two days. If you experience worsening or a significant change in your symptoms, notify the physician immediately or return to the Emergency Department at any time for re-evaluation. Referrals: ALFA GRANGER NP [Primary Care Provider] - 12/28/16
--- NOTE | 2016-12-26 20:04 | RADIOLOGY REPORT (SQ) ---
EXAM DESCRIPTION: CT ABD/PELVIS NO ORAL OR IV COMPLETED DATE/TIME: 12/26/2016 7:46 pm REASON FOR STUDY: recent paracentesis COMPARISON: 12/18/2016. TECHNIQUE: CT scan of the abdomen and pelvis performed without intravenous or oral contrast. Images reviewed with lung, soft tissue, and bone windows. Reconstructed coronal and sagittal MPR images revi ewed. All images stored on PACS. All CT scanners at this facility use dose modulation, iterative reconstruction, and/or weight based d osing when appropriate to reduce radiation dose to as low as reasonably achievable (ALARA). [facility]: Dose Right [facility]: CareDose [facility]: Dose Right [facility]: Teradose 4D [facility]: Smart Moment.me RADIATION DOSE: Up-to-date CT equipment and radiation dose reduction techniques were employed. CTDIv ol: 15.8 mGy. DLP: 746 mGy-cm.mGy. LIMITATIONS: None. FINDINGS: LOWER CHEST: No significant findings. No nodules or infiltrates. NON-CONTRASTED LIVER, SPLEEN, ADRENALS: Evaluation limited by lack of IV contrast. No identified sign ificant masses. PANCREAS: No masses. No peripancreatic inflammatory changes. GALLBLADDER: No identified stones by CT criteria. No inflammatory changes to suggest cholecystitis. RIGHT KIDNEY AND URETER: No suspicious masses. Assessment limited by lack of IV contrast. No signif icant calcifications. No hydronephrosis or hydroureter. LEFT KIDNEY AND URETER: No suspicious masses. Assessment limited by lack of IV contrast. No signifi cant calcifications. No hydronephrosis or hydroureter. AORTA AND RETROPERITONEUM: No aneurysm. No retroperitoneal masses or adenopathy. BOWEL AND PERITONEAL CAVITY: Diverticuli in the descending and sigmoid colon. No obvious masses or i nflammatory changes. Small amount of free fluid. APPENDIX: Normal. PELVIS, BLADDER, AND ABDOMINAL WALL:No abnormal masses. Umbilical hernia containing fat only. No fr ee fluid. Bladder normal. Left inguinal hernia containing fat only. BONES: No significant findings. OTHER: No other significant finding. IMPRESSION: 1. SMALL AMOUNT OF ASCITES. SIGNIFICANTLY DECREASED AMOUNT FOLLOWING PARACENTESIS. 2. COLONIC DIVERTICULOSIS. NO CT FINDINGS OF ACUTE DIVERTICULITIS. 3. NO OTHER SIGNIFICANT OR ACUTE PROCESS IN THE ABDOMEN OR PELVIS. COMMENT: Quality ID # [id number]: Final reports with documentation of one or more dose reduction techniques (e.g., Automated exposure control, adjustment of the mA and/or kV according to patient size, use of iterative reconstruction technique) TECHNICAL DOCUMENTATION: JOB ID: [id number] [employer]- All Rights Reserved
[2016-12-26 21:06] VITALS: BP 109/68
== END 2016-12-26 21:06 | disposition home or self-care (01) ==
LOC: ER 17:53
DX: R18.8 Other ascites (principal); R10.9 Unspecified abdominal pain; R14.0 Abdominal distension (gaseous); Z87.891 Personal history of nicotine dependence
CPT/HCPCS: 94640; 99284; 36415; 85025; 80053; 74176; J7620

== ENCOUNTER 2017-01-10 02:14 | Emergency (ER) | payer MEDICARE, OTHER ==
--- NOTE | 2017-01-10 03:04 | ER Document Report ---
ED GI/ - General Chief Complaint: Abdominal Pain >50 Stated Complaint: ABDOMINAL PAIN Time Seen by Provider: 01/10/17 03:03 Mode of Arrival: Ambulatory Information source: Patient Notes: 61 yo male was at [facility] tuesday, US did not show enough fluid to do paracentisis , was discharged tuesday with cirpo 500mg bid(unsure of dx). This am could not eat , ate 2 bonelless wings tonight and now stomach feels so tight, hurts through to back, mostly in the LLQ, 2 small bm's today but not as much as he wanted to, pain worse than when at [facility]. PMH: cirrhosis (alpha 1), CHF, oxygen dependent 2lpm, diverticulosis, DM2, No surgeries.. PCP: Daniel SHAH TRAVEL OUTSIDE OF THE [place] IN LAST 30 DAYS: No - Related Data Allergies/Adverse Reactions: Heparin Analogues [Heparin Agents] Allergy (Severe, Verified 01/10/17 02:41) Thrombocytopenia heparinoids [Heparinoids] Allergy (Severe, Verified 01/10/17 02:41) Thrombocytopenia codeine [Codeine] Allergy (Unknown, Verified 01/10/17 02:41) GI upset Penicillins Allergy (Unknown, Verified 01/10/17 02:41) Swelling doxycycline Allergy (Verified 01/10/17 02:41) Past Medical History - General Information source: Patient - Social History Smoking Status: Former Smoker Frequency of alcohol use: None Drug Abuse: None Lives with: Family Family History: CAD, Hypertension, Other - CHF Patient has suicidal ideation: No Patient has homicidal ideation: No - Past Medical History Cardiac Medical History: Reports: Hx Congestive Heart Failure - Left ventricular diastolic dysfunction, Hx DVT, Hx Heart Attack, Hx Hypertension - LOW, Hx Pulmonary Embolism Pulmonary Medical History: Reports: Hx COPD - 2L NC, Hx Pneumonia Endocrine Medical History: Reports: Hx Diabetes Mellitus Type 2 Renal/ Medical History: Denies: Hx Peritoneal Dialysis GI Medical History: Reports: 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 - Immunizations Hx Diphtheria, Pertussis, Tetanus Vaccination: Yes Hx Pneumococcal Vaccination: 04/05/14 Review of Systems - Review of Systems Constitutional: No symptoms reported EENT: No symptoms reported Cardiovascular: No symptoms reported Respiratory: No symptoms reported Gastrointestinal: See HPI Genitourinary: No symptoms reported Male Genitourinary: No symptoms reported Musculoskeletal: No symptoms reported Skin: No symptoms reported Hematologic/Lymphatic: No symptoms reported Neurological/Psychological: No symptoms reported Physical Exam - Vital signs Vitals: Pulse Resp BP Pulse Ox 113 H 22 H 92/53 L 91 L 01/10/17 02:41 01/10/17 02:41 01/10/17 02:41 01/10/17 02:41 Interpretation: Hypotensive, Tachycardic - 111, Hypoxic - 90% - General General appearance: Alert Notes: chronically ill - HEENT Head: Normocephalic, Atraumatic Eyes: Normal Conjunctiva: Normal Pupils: PERRL - Respiratory Respiratory status: No respiratory distress Chest status: Nontender Breath sounds: Normal Chest palpation: Normal - Cardiovascular Rhythm: Regular Heart sounds: Normal auscultation Murmur: No - Abdominal Inspection: Normal Distension: No distension. No: Distended, Fluid wave Bowel sounds: Normal Tenderness: Nontender, Tender - mild LLQ, soft Organomegaly: No organomegaly. No: Splenomegaly - Back Back: Normal, Nontender - Extremities General upper extremity: Normal inspection, Nontender, Normal color, Normal ROM , Normal temperature General lower extremity: Normal inspection, Nontender, Normal color, Normal ROM , Normal temperature, Normal weight bearing. No: Tania's sign - Neurological Neuro grossly intact: Yes Cognition: Normal Orientation: AAOx4 Delight Coma Scale Eye Opening: Spontaneous Sherrie Coma Scale Verbal: Oriented Sherrie Coma Scale Motor: Obeys Commands Delight Coma Scale Total: 15 Speech: Normal Motor strength normal: LUE, RUE, LLE, RLE Sensory: Normal - Psychological Associated symptoms: Normal affect, Normal mood - Skin Skin Temperature: Warm Skin Moisture: Dry Skin Color: Normal Course - Re-evaluation Re-evalutation: 01/10/17 05:59 IV infiltrated when he was at CT so he got the CT scan without contrast per Dr. leyva. 01/10/17 06:51 Abdominal pain is down to 3/5 without any pain medication he refused the morphine. He did get Zofran. Blood pressure is 110/64 pulse is 111. 01/10/17 07:14 pt has been anxious while here in the ER, I have recommended him talking to [facility] family nurse practitioner about this anxiety. His CT of the abdomen is once again negative there is no inflammation or obstruction. He will take the potassium 40 mEq that I have given him and will seek a appointment with Elva Magallon this week. - Vital Signs Vital signs: Temp Pulse Resp BP Pulse Ox 97.7 F 113 H 19 107/68 95 01/10/17 02:42 01/10/17 02:41 01/10/17 07:01 01/10/17 07:01 01/10/17 07:01 - Laboratory Result Diagrams: 01/10/17 04:30 01/10/17 04:30 Laboratory results interpreted by me: 01/10/17 01/10/17 01/10/17 04:30 04:30 04:30 RDW 21.8 H Plt Count 119 L Lymphocytes % 12.2 L PT 15.7 H VBG pH VBG HCO3 Sodium 134.8 L Potassium 3.4 L Chloride 95 L Carbon Dioxide 32 H Glucose 111 H Direct Bilirubin 0.5 H Alkaline Phosphatase 193 H Total Protein 6.2 L Albumin 2.8 L 01/10/17 04:30 RDW Plt Count Lymphocytes % PT VBG pH 7.45 H VBG HCO3 36.8 H Sodium Potassium Chloride Carbon Dioxide Glucose Direct Bilirubin Alkaline Phosphatase Total Protein Albumin Discharge - Discharge Clinical Impression: Recurrent abdominal pain, anxiety, liver cirrhosis, hypokalemia Condition: Good Disposition: HOME, SELF-CARE Instructions: Abdominal Pain ([facility]), Cirrhosis ([facility]), Hypokalemia ([facility]) Additional Instructions: call and schedule appt with elva magallon for recheck to er if worse Referrals: ELVA MAGALLON, BATTERY CHECKER [COMMUNITY BASED STAFF] - Follow up as needed
[2017-01-10] MEDS ORDERED: MORPHINE SULFATE 10 MG/ML INJ IV ONE (03:24)
[2017-01-10] MEDS ORDERED: ONDANSETRON HCL INJ/PF 4 MG/2 ML SDV IV ONE (03:25)
[2017-01-10] MEDS ORDERED: NORMAL SALINE 1000 ML 500 ML IV ONE (03:35)
[2017-01-10 04:41] LABS: VENOUS BLOOD BASE EXCESS 10.6 mmol/L; VENOUS BLOOD HCO3 36.8 mmol/L (20-32); VENOUS BLOOD PCO2 54.1 mmHg (35-63); VENOUS BLOOD PH 7.45 (7.30-7.42)
[2017-01-10 04:42] LABS: ABSOLUTE BASOPHILS # (AUTO) 0.1 10^3/uL (0.0-0.2); ABSOLUTE EOSINOPHILS # (AUTO) 0.2 10^3/uL (0.0-0.6); ABSOLUTE LYMPHOCYTES (AUTO) 1.1 10^3/uL (0.5-4.7); ABSOLUTE MONOCYTES (AUTO) 0.7 10^3/uL (0.1-1.4); ABSOLUTE NEUT (AUTO) 7.2 10^3/uL (1.7-8.2); EOSINOPHILS % (AUTO) 1.7 % (0-6); HEMATOCRIT 41.8 % (37.9-51.0); HEMOGLOBIN 14.5 g/dL (13.5-17.0); HGB HCT DIFFERENCE 1.7; LYMPHOCYTES % (AUTO) 12.2 % (13-45); MEAN CORPUSCULAR HEMOGLOBIN 30.8 pg (27.0-33.4); MEAN CORPUSCULAR HGB CONC 34.6 g/dL (32.0-36.0); MEAN CORPUSCULAR VOLUME 89 fl (80-97); MONOCYTES % (AUTO) 7.9 % (3-13); RED CELL DISTRIBUTION WIDTH 21.8 % (11.5-14.0); SEGMENTED NEUTROPHILS % (AUTO) 77.2 % (42-78); WHITE BLOOD COUNT 9.3 10^3/uL (4.0-10.5)
[2017-01-10 04:52] LABS: PROTHROMBIN TIME 15.7 SEC (11.4-15.4)
[2017-01-10 04:56] LABS: ALANINE AMINOTRANSFERASE 35 U/L (21-72); ALBUMIN 2.8 g/dL (3.5-5.0); ALKALINE PHOSPHATASE 193 U/L (38-126); ANION GAP 8 (5-19); ASPARTATE AMINO TRANSFERASE 39 U/L (17-59); BILIRUBIN,DIRECT 0.5 mg/dL (0.0-0.4); BILIRUBIN,TOTAL 1.2 mg/dL (0.2-1.3); BLOOD UREA NITROGEN 11 mg/dL (7-20); CALCIUM 8.7 mg/dL (8.4-10.2); CARBON DIOXIDE 32 mmol/L (22-30); CHLORIDE 95 mmol/L (98-107); CREATININE RESULT 1.23 mg/dL (0.52-1.25); GLUCOSE 111 mg/dL (75-110); LIPASE 66.5 U/L (23-300); MAGNESIUM 1.8 mg/dL (1.6-2.3); POTASSIUM 3.4 mmol/L (3.6-5.0); SODIUM 134.8 mmol/L (137-145); TOTAL PROTEIN 6.2 g/dL (6.3-8.2)
[2017-01-10 05:21] LABS: APPEARANCE,URINE CLEAR; BILIRUBIN,URINE NEGATIVE (NEGATIVE); GLUCOSE, URINE NEGATIVE (NEGATIVE); KETONES,URINE NEGATIVE (NEGATIVE); LEUKOCYTE ESTERASE,URINE NEGATIVE (NEGATIVE); NITRITE,URINE NEGATIVE (NEGATIVE); PROTEIN,URINE NEGATIVE (NEGATIVE); URINE SPECIFIC GRAVITY 1.009; UROBILINOGEN,URINE NEGATIVE mg/dL (<2.0)
--- NOTE | 2017-01-10 06:09 | RADIOLOGY REPORT (SQ) ---
EXAM DESCRIPTION: CT ABD/PELVIS NO ORAL OR IV COMPLETED DATE/TIME: 01/10/2017 5:40 am REASON FOR STUDY: acute abdominal pain, LLQ, hx diverticulosis COMPARISON: 12/26/2016, 12/18/2016, 04/12/2016. TECHNIQUE: CT scan of the abdomen and pelvis performed without intravenous or oral contrast. Images reviewed with lung, soft tissue, and bone windows. Reconstructed coronal and sagittal MPR images revi ewed. All images stored on PACS. All CT scanners at this facility use dose modulation, iterative reconstruction, and/or weight based d osing when appropriate to reduce radiation dose to as low as reasonably achievable (ALARA). [facility]: Dose Right [facility]: CareDose [facility]: Dose Right [facility]: Teradose 4D [facility]: [employer] ([employer]) Services RADIATION DOSE: Up-to-date CT equipment and radiation dose reduction techniques were employed. CTDIv ol: 12.0 mGy. DLP: 622 mGy-cm.mGy. LIMITATIONS: None. FINDINGS: LOWER CHEST: Small to moderate fibrosis and severe bullous disease of bilateral lung bases , right more than left. No suspicious interval change. NON-CONTRASTED LIVER, SPLEEN, ADRENALS: Evaluation limited by lack of IV contrast. No identified sign ificant masses. Moderate splenomegaly. Cirrhosis pattern. PANCREAS: No masses. No peripancreatic inflammatory changes. GALLBLADDER: No identified stones by CT criteria. No inflammatory changes to suggest cholecystitis. RIGHT KIDNEY AND URETER: No suspicious masses. Assessment limited by lack of IV contrast. No signif icant calcifications. No hydronephrosis or hydroureter. LEFT KIDNEY AND URETER: No suspicious masses. Assessment limited by lack of IV contrast. No signifi cant calcifications. No hydronephrosis or hydroureter. AORTA AND RETROPERITONEUM: No aneurysm. No retroperitoneal masses or adenopathy. BOWEL AND PERITONEAL CAVITY: Moderate colonic diverticulosis. No evidence of significant diverticuli tis. Mild haziness of mesenteric intra-abdominal fat in, without significant interval change. APPENDIX: Normal. PELVIS, BLADDER, AND ABDOMINAL WALL:3.7 cm umbilical hernia of fat only. No significant free fluid. Unremarkable urinary bladder. The moderate left inguinal hernia of fat only. BONES: No significant findings. OTHER: No other significant finding. IMPRESSION: No acute findings. Cirrhosis. Splenomegaly. Diverticulosis. No suspicious interval c mahad. COMMENT: Quality ID # [id number]: Final reports with documentation of one or more dose reduction techniques (e.g., Automated exposure control, adjustment of the mA and/or kV according to patient size, use of iterative reconstruction technique) TECHNICAL DOCUMENTATION: JOB ID: [id number] [employer]- All Rights Reserved
[2017-01-10] MEDS ORDERED: POTASSIUM CHLORIDE 20 MEQ/15 ML UDCUP PO ONE (06:52)
[2017-01-10 07:18] VITALS: BP 107/68
== END 2017-01-10 07:31 | disposition home or self-care (01) ==
LOC: ER 02:14
DX: K74.60 Unspecified cirrhosis of liver (principal); E87.6 Hypokalemia; F41.9 Anxiety disorder, unspecified; J44.9 Chronic obstructive pulmonary disease, unspecified; Z99.81 Dependence on supplemental oxygen; R09.02 Hypoxemia; R00.0 Tachycardia, unspecified; R10.32 Left lower quadrant pain; Z88.8 Allergy status to other drugs, medicaments and biological substances; Z88.5 Allergy status to narcotic agent; Z88.0 Allergy status to penicillin; Z88.1 Allergy status to other antibiotic agents; Z87.891 Personal history of nicotine dependence
CPT/HCPCS: 99284; 96361; 96374; 36415; 83690; 83735; 85025; 85610; 80053; 81001; 82803; 74176; J2405; J7030

== ENCOUNTER 2017-02-05 05:23 | Emergency (ER) | payer MEDICARE, OTHER ==
[2017-02-05 06:23] LABS: ABSOLUTE BASOPHILS # (AUTO) 0.1 10^3/uL (0.0-0.2); ABSOLUTE EOSINOPHILS # (AUTO) 0.3 10^3/uL (0.0-0.6); ABSOLUTE LYMPHOCYTES (AUTO) 0.8 10^3/uL (0.5-4.7); ABSOLUTE MONOCYTES (AUTO) 0.6 10^3/uL (0.1-1.4); ABSOLUTE NEUT (AUTO) 4.5 10^3/uL (1.7-8.2); BASOPHILS % (AUTO) 0.9 % (0-2); EOSINOPHILS % (AUTO) 4.5 % (0-6); HEMATOCRIT 43.6 % (37.9-51.0); HEMOGLOBIN 15.2 g/dL (13.5-17.0); LYMPHOCYTES % (AUTO) 13.3 % (13-45); MEAN CORPUSCULAR HEMOGLOBIN 31.8 pg (27.0-33.4); MEAN CORPUSCULAR VOLUME 91 fl (80-97); RED BLOOD COUNT 4.78 10^6/uL (4.35-5.55); RED CELL DISTRIBUTION WIDTH 20.3 % (11.5-14.0); SEGMENTED NEUTROPHILS % (AUTO) 72.3 % (42-78); WHITE BLOOD COUNT 6.2 10^3/uL (4.0-10.5)
[2017-02-05 06:47] LABS: ALANINE AMINOTRANSFERASE 30 U/L (21-72); ALBUMIN 2.9 g/dL (3.5-5.0); ALKALINE PHOSPHATASE 200 U/L (38-126); ANION GAP 8 (5-19); ASPARTATE AMINO TRANSFERASE 51 U/L (17-59); BILIRUBIN,DIRECT 0.7 mg/dL (0.0-0.4); BILIRUBIN,TOTAL 1.5 mg/dL (0.2-1.3); BLOOD UREA NITROGEN 11 mg/dL (7-20); CALCIUM 8.6 mg/dL (8.4-10.2); CARBON DIOXIDE 30 mmol/L (22-30); CHLORIDE 99 mmol/L (98-107); CREATININE RESULT 1.26 mg/dL (0.52-1.25); GLUCOSE 91 mg/dL (75-110); LIPASE 68.5 U/L (23-300); POTASSIUM 3.2 mmol/L (3.6-5.0); SODIUM 137.2 mmol/L (137-145); TOTAL PROTEIN 6.9 g/dL (6.3-8.2)
--- NOTE | 2017-02-05 07:28 | ER Document Report ---
ED GI/ - General Mode of Arrival: Ambulatory Information source: Patient TRAVEL OUTSIDE OF THE [place] IN LAST 30 DAYS: No <DAX SQUIRES - Last Filed: 02/05/17 08:02> <ASHLEY WANG - Last Filed: 02/05/17 10:16> - General Chief Complaint: Abdominal Pain Stated Complaint: ABDOMINAL PAIN Time Seen by Provider: 02/05/17 07:05 Notes: This 61-year-old male patient comes emergency room complaining of periumbilical abdominal pain which is a chronic problem but worse in the past several days. He has nausea and no appetite that is worse for the last 2-3 days. He complains of weakness. His past medical history significant for alpha 1 antitrypsin deficiency causing severe O2 dependent pulmonary fibrosis and hepatic cirrhosis with recurrent ascites. He also has coronary artery disease with prior myocardial infarction and congestive heart failure. He is maintained hypotensive by medical therapy. He has history of prior DVT and pulmonary embolus, and elected to stop taking Coumadin on his last admission on 12/24/2016. He had his last paracentesis on that day of 1300 mL's of fluid. 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 Later history obtained when reviewing the findings with the patient, he states he had his potassium increased recently and he was given either a liquid or effervescent tablet, he states that it comes right back up. He does not know why they did not just increase his tablets that he normally takes. He also states that he cannot go home because he will have to just come right back. This is the same thing he said when I saw him the last time. He states he needs to come in to get tuned up. When I asked him what he takes for his abdominal pain at home, he says he does not hardly take anything. I asked him specifically what medicine he had to take and he said he does not have any pain medication. He is resistant to the idea of going home with pain medication to treat his pain , stating that he needs to be admitted or he will just come right back. (ASHLEY WANG) - Related Data Allergies/Adverse Reactions: Heparin Analogues [Heparin Agents] Allergy (Severe, Verified 02/05/17 05:27) Thrombocytopenia heparinoids [Heparinoids] Allergy (Severe, Verified 02/05/17 05:27) Thrombocytopenia codeine [Codeine] Allergy (Unknown, Verified 02/05/17 05:27) GI upset Penicillins Allergy (Unknown, Verified 02/05/17 05:27) Swelling doxycycline Allergy (Verified 02/05/17 05:27) Past Medical History - General Information source: Patient, [facility] Records - Social History Smoking Status: Never Smoker Cigarette use (# per day): No Lives with: Family Family History: CAD, Hypertension, Other - CHF Patient has suicidal ideation: No Patient has homicidal ideation: No - Past Medical History Cardiac Medical History: Reports: Hx Congestive Heart Failure - Left ventricular diastolic dysfunction, Hx DVT, Hx Heart Attack, Hx Hypertension - LOW, Hx Pulmonary Embolism Pulmonary Medical History: Reports: Hx COPD - 2L [place], Hx Pneumonia Endocrine Medical History: Reports: Hx Diabetes Mellitus Type 2 GI Medical History: Reports: Hx Cirrhosis - [place] secondary to alpha-1 antitrypsin deficiency., Hx Gastroesophageal Reflux Disease Musculoskeltal Medical History: Reports Hx Arthritis Psychiatric Medical History: Reports: Hx Depression Infectious Medical History: Reports: Hx C-Diff, Hx MRSA Past Surgical History: Reports: Other - Left chest tube insertion. - Immunizations Hx Diphtheria, Pertussis, Tetanus Vaccination: Yes Hx Pneumococcal Vaccination: 04/05/14 <DAX SQUIRES - Last Filed: 02/05/17 08:02> Review of Systems - Review of Systems Constitutional: See HPI, Other - feels dehydrated EENT: No symptoms reported Cardiovascular: No symptoms reported Respiratory: No symptoms reported Gastrointestinal: See HPI, Nausea, Other - no appetite Genitourinary: No symptoms reported Male Genitourinary: No symptoms reported Musculoskeletal: No symptoms reported Skin: No symptoms reported Hematologic/Lymphatic: No symptoms reported Neurological/Psychological: No symptoms reported -: Yes All other systems reviewed and negative <DAX SQUIRES - Last Filed: 02/05/17 08:02> Physical Exam <DAX SQUIRES - Last Filed: 02/05/17 08:02> <ASHLEY WANG - Last Filed: 02/05/17 10:16> - Vital signs Vitals: Temp Pulse Resp BP Pulse Ox 98.2 F 109 H 18 95/63 L 92 02/05/17 05:28 02/05/17 05:28 02/05/17 05:28 02/05/17 05:28 02/05/17 05:28 - Notes Notes: Physical Exam: General: Alert, appears chronically ill. HEENT: Normocephalic. Atraumatic. PERRL. Extraocular movements intact. Oropharynx clear. Very dry mucous membranes. Neck: Supple. Non-tender. Respiratory: Appears dyspneic despite being on oxygen. Coarse breath sounds bilaterally. Cardiovascular: Regular rate and rhythm. Abdominal: Umbilical hernia which is firm, tenderness with palpation just left and inferior to the umbilicus. No distension. Normal Bowel Sounds. Back: Non-tender. No deformity or step off. Extremities: Moves all four extremities. Upper extremities: Normal inspection. Normal ROM. Lower extremities: Trace pedal edema bilaterally. Normal ROM. Neurological: Normal cognition. AAOx4. Normal speech. Psychological: Normal affect. Normal Mood. Skin: Warm. Dry. Normal color. (DAX SQUIRES) Course - Laboratory Result Diagrams: 02/05/17 06:12 02/05/17 06:12 <DAX SQUIRES - Last Filed: 02/05/17 08:02> - Laboratory Result Diagrams: 02/05/17 06:12 02/05/17 06:12 - Consults Dr. Bloom Consulted provider: other - I discussed the patient with Dr. Bloom and he agrees without any objective reason to admit to the patient to the hospital, he was not willing to admit the patient to the hospital. He also suggested the same things I suggested to the patient. Specifically, take some pain medicine for your chronic abdominal pain. <ASHLEY WANG - Last Filed: 02/05/17 10:16> - Re-evaluation Re-evalutation: 02/05/17 10:04 The patient is quite frustrating to deal with. He wants to be admitted to the hospital, despite no real criteria for admission. He keeps offering excuses such as "there is something wrong", "I know I will be back", "but still not going to solve my eating". He continues to state he needs to stay at the hospital for couple days to get tuned up. I asked about what he could take for medication in multiple different ways and never could get a clear answer from him. The best he came up with was you take one thing it causes a problem in 1 way to take something else it causes a problem in another way. I told him that I would guess at something that might help him and that is what he would be prescribed. At this time he is also sitting up and holding his upper abdomen on both sides stating it feels like there is fluid up there and there must be something wrong. On exam and initially the pain was found to be in the periumbilical region more to the left lower aspect. The patient also asked if he was dehydrated. He is obviously looking for any reason to be admitted to the hospital. (ASHLEY WANG) - Vital Signs Vital signs: Temp Pulse Resp BP Pulse Ox 98.2 F 109 H 18 95/63 L 92 02/05/17 05:28 02/05/17 05:28 02/05/17 05:28 02/05/17 05:28 02/05/17 05:28 - Laboratory Laboratory results interpreted by me: 02/05/17 02/05/17 02/05/17 06:12 06:12 07:41 RDW 20.3 H Plt Count 110 L Potassium 3.2 L Creatinine 1.26 H Est GFR (Non-Af Amer) 58 L Total Bilirubin 1.5 H Direct Bilirubin 0.7 H Alkaline Phosphatase 200 H Albumin 2.9 L Urine Blood MODERATE H Urine Urobilinogen 2.0 H Ur Leukocyte Esterase TRACE H Discharge <DAX SQUIRES - Last Filed: 02/05/17 08:02> <ASHLEY WANG - Last Filed: 02/05/17 10:16> - Discharge Clinical Impression: Hypokalemia Abdominal pain Qualifiers: Abdominal location: periumbilical Qualified Code(s): R10.33 - Periumbilical pain Condition: Stable Disposition: HOME, SELF-CARE Additional Instructions: Abdominal Pain: There are many causes of abdominal pain. Pain can mean a serious problem requiring surgery (such as appendicitis). It can also be an innocent problem that goes away on its own (such as a viral infection). Often, time must pass to determine the cause of pain. The physician does not feel that hospitalization is necessary, at present. Things may change within the next 24 hours. Call the doctor or come back for re- examination if any problems occur, such as: (1) Pain that becomes more severe, steady, or becomes concentrated in one specific area. Also, pain that is more severe with movement or coughing. (2) Vomiting that persists or becomes more frequent. (3) Blood in the vomitus, urine, or bowel movements. Blood in the stool may have a tarry or black appearance. (4) Shaking chills or fever greater than 100 degrees F. (5) The abdomen becomes more distended or swollen. (6) Bowel movements cease. (7) Failure to improve as expected. The evaluation of your abdominal pain today suggests this is most likely related to your chronic periumbilical abdominal pain. Your potassium level was also found to be low today. Your exam does not suggest an excessive amount of free fluid in the abdomen today needing drainage. You will be prescribed medication to take for your abdominal pain and for any nausea that medication may cause. You should be sure and take your potassium supplements as they were prescribed. Follow-up with your doctor Tuesday to recheck your potassium and reevaluate your abdominal pain. RETURN TO THE EMERGENCY ROOM IF ANY NEW OR WORSENING SYMPTOMS. Prescriptions: Hydromorphone HCl [Dilaudid 2 mg Tablet] 2 mg PO ASDIR PRN #15 tablet PRN Reason: Ondansetron HCl [Zofran 4 mg Tablet] 1 - 2 tab PO Q4H PRN #20 tablet PRN Reason: Referrals: ALFA GRANGER NP [Primary Care Provider] - 02/07/17 Scribe Attestation: 02/05/17 10:15 I personally performed the services described in the documentation, reviewed and edited the documentation which was dictated to the scribe in my presence, and it accurately records my words and actions. (ASHLEY WANG) Scribe Documentation - Scribe Written by Chris:: Chris oGod, 02/05/2017 [id number] acting as scribe for :: Osbaldo <DAX SQUIRES - Last Filed: 02/05/17 08:02>
[2017-02-05] MEDS ORDERED: ONDANSETRON HCL INJ/PF 4 MG/2 ML SDV IV ONE (07:41)
[2017-02-05] MEDS ORDERED: MORPHINE SULFATE 10 MG/ML INJ IV ONE (07:41)
[2017-02-05 08:16] LABS: APPEARANCE,URINE CLEAR; BILIRUBIN,URINE NEGATIVE (NEGATIVE); GLUCOSE, URINE NEGATIVE (NEGATIVE); KETONES,URINE NEGATIVE (NEGATIVE); LEUKOCYTE ESTERASE,URINE TRACE (NEGATIVE); NITRITE,URINE NEGATIVE (NEGATIVE); PROTEIN,URINE NEGATIVE (NEGATIVE); URINE SPECIFIC GRAVITY 1.006
[2017-02-05] MEDS ORDERED: ONDANSETRON 4 MG TAB.RAPDIS PO ONE (11:03)
[2017-02-05] MEDS ORDERED: ONDANSETRON 4 MG TAB.RAPDIS ONE (11:04)
[2017-02-05 11:10] VITALS: BP 75/51
== END 2017-02-05 11:10 | disposition home or self-care (01) ==
LOC: ER 05:23
DX: K42.9 Umbilical hernia without obstruction or gangrene (principal); R10.33 Periumbilical pain; E87.6 Hypokalemia; G89.29 Other chronic pain; R11.0 Nausea; R63.0 Anorexia; R53.1 Weakness; E88.01 Alpha-1-antitrypsin deficiency; J84.10 Pulmonary fibrosis, unspecified; J44.9 Chronic obstructive pulmonary disease, unspecified; Z99.81 Dependence on supplemental oxygen; K74.69 Other cirrhosis of liver; R60.0 Localized edema; E11.9 Type 2 diabetes mellitus without complications; I25.10 Atherosclerotic heart disease of native coronary artery without angina pectoris; I25.2 Old myocardial infarction; Z79.899 Other long term (current) drug therapy; Z88.8 Allergy status to other drugs, medicaments and biological substances; Z88.5 Allergy status to narcotic agent; Z88.0 Allergy status to penicillin; Z88.1 Allergy status to other antibiotic agents; Z86.14 Personal history of Methicillin resistant Staphylococcus aureus infection
CPT/HCPCS: 99284; 36415; 83690; 85025; 80053; 81001; S0119; J2270; J2405

== ENCOUNTER 2017-02-05 18:57 | Emergency (ER) | payer OTHER ==
[2017-02-05] MEDS ORDERED: NORMAL SALINE 1000 ML 1,000 ML IV PRN (19:10)
[2017-02-05] MEDS ORDERED: ONDANSETRON HCL INJ/PF 4 MG/2 ML SDV IV ONE (19:10)
--- NOTE | 2017-02-05 19:11 | ER Document Report ---
ED Medical Screen (RME) - General Chief Complaint: Vomiting Stated Complaint: NAUSEA/VOMITING Time Seen by Provider: 02/05/17 19:07 Mode of Arrival: Wheelchair Information source: Patient TRAVEL OUTSIDE OF THE [place] IN LAST 30 DAYS: No - HPI Patient complains to provider of: Upper abdominal pain with nausea and vomiting Notes: 02/05/17 19:11 Patient is a 61-year-old male presenting to the emergency room today for the second time complaining of pain in his upper abdomen with nausea and vomiting, the symptoms have been going on for the past 3 days - Related Data Allergies/Adverse Reactions: Heparin Analogues [Heparin Agents] Allergy (Severe, Verified 02/05/17 19:01) Thrombocytopenia heparinoids [Heparinoids] Allergy (Severe, Verified 02/05/17 19:) Thrombocytopenia codeine [Codeine] Allergy (Unknown, Verified 02/05/17 19:) GI upset Penicillins Allergy (Unknown, Verified 02/05/17 19:) Swelling doxycycline Allergy (Verified 02/05/17 19:) Past Medical History - Social History Frequency of alcohol use: None Family history: CAD - Past Medical History Cardiac Medical History: Reports: Hx Congestive Heart Failure - Left ventricular diastolic dysfunction, Hx DVT, Hx Heart Attack, Hx Hypertension - LOW, Hx Pulmonary Embolism Denies: Hx Coronary Artery Disease, Hx Hypercholesterolemia Pulmonary Medical History: Reports: Hx COPD - 2L [place], Hx Pneumonia Denies: Hx Asthma, Hx Bronchitis, Hx Sleep Apnea, Hx Tuberculosis Neurological Medical History: Denies: Hx Cerebrovascular Accident, Hx Seizures Endocrine Medical History: Reports: Hx Diabetes Mellitus Type 2. Denies: Hx Diabetes Mellitus Type 1, Hx Hyperthyroidism, Hx Hypothyroidism Renal/ Medical History: Denies: Hx Peritoneal Dialysis GI Medical History: Reports: Hx Cirrhosis - [place] secondary to alpha-1 antitrypsin deficiency., Hx Gastroesophageal Reflux Disease. Denies: Hx Hepatitis Musculoskeltal Medical History: Reports Hx Arthritis Psychiatric Medical History: Reports: Hx Depression Infectious Medical History: Reports: Hx C-Diff, Hx MRSA. Denies: Hx Hepatitis Past Surgical History: Reports: Other - Left chest tube insertion. - Immunizations Hx Diphtheria, Pertussis, Tetanus Vaccination: Yes Physical Exam - Vital signs Vitals: Temp Pulse Resp BP Pulse Ox 97.7 F 95 18 99/78 L 94 02/05/17 19:01 02/05/17 19:01 02/05/17 19:01 02/05/17 19:01 02/05/17 19:01 Course - Vital Signs Vital signs: Temp Pulse Resp BP Pulse Ox 97.7 F 95 18 99/78 L 94 02/05/17 19:01 02/05/17 19:01 02/05/17 19:01 02/05/17 19:01 02/05/17 19:01
[2017-02-05 19:56] LABS: ABSOLUTE EOSINOPHILS # (AUTO) 0.1 10^3/uL (0.0-0.6); ABSOLUTE LYMPHOCYTES (AUTO) 0.7 10^3/uL (0.5-4.7); ABSOLUTE MONOCYTES (AUTO) 0.4 10^3/uL (0.1-1.4); ABSOLUTE NEUT (AUTO) 7.1 10^3/uL (1.7-8.2); BASOPHILS % (AUTO) 0.4 % (0-2); EOSINOPHILS % (AUTO) 0.9 % (0-6); HEMOGLOBIN 15.8 g/dL (13.5-17.0); HGB HCT DIFFERENCE 1.4; MEAN CORPUSCULAR HEMOGLOBIN 31.2 pg (27.0-33.4); MEAN CORPUSCULAR HGB CONC 34.3 g/dL (32.0-36.0); MEAN CORPUSCULAR VOLUME 91 fl (80-97); MONOCYTES % (AUTO) 4.9 % (3-13); RED BLOOD COUNT 5.05 10^6/uL (4.35-5.55); RED CELL DISTRIBUTION WIDTH 20.4 % (11.5-14.0); SEGMENTED NEUTROPHILS % (AUTO) 85.8 % (42-78); WHITE BLOOD COUNT 8.3 10^3/uL (4.0-10.5)
--- NOTE | 2017-02-05 20:10 | ER Document Report ---
ED General - General Chief Complaint: Vomiting Stated Complaint: NAUSEA/VOMITING Time Seen by Provider: 02/05/17 19:07 Mode of Arrival: Wheelchair Notes: 61-year-old male with history of cirrhosis and chronic abdominal pain presents for the second time today complaining of abdominal pain. States his pain is diffuse. Denies fever. No vomiting. States that "nothing was done for him this morning" TRAVEL OUTSIDE OF THE [place] IN LAST 30 DAYS: No - Related Data Allergies/Adverse Reactions: Heparin Analogues [Heparin Agents] Allergy (Severe, Verified 02/05/17 19:01) Thrombocytopenia heparinoids [Heparinoids] Allergy (Severe, Verified 02/05/17 19:01) Thrombocytopenia codeine [Codeine] Allergy (Unknown, Verified 02/05/17 19:01) GI upset Penicillins Allergy (Unknown, Verified 02/05/17 19:01) Swelling doxycycline Allergy (Verified 02/05/17 19:01) Past Medical History - General Information source: Patient - Social History Smoking Status: Current Every Day Smoker Frequency of alcohol use: None Family History: CAD, Hypertension, Other - CHF - Past Medical History Cardiac Medical History: Reports: Hx Congestive Heart Failure - Left ventricular diastolic dysfunction, Hx DVT, Hx Heart Attack, Hx Hypertension - LOW, Hx Pulmonary Embolism Denies: Hx Coronary Artery Disease, Hx Hypercholesterolemia Pulmonary Medical History: Reports: Hx COPD - 2L NC, Hx Pneumonia Denies: Hx Asthma, Hx Bronchitis, Hx Sleep Apnea, Hx Tuberculosis Neurological Medical History: Denies: Hx Cerebrovascular Accident, Hx Seizures Endocrine Medical History: Reports: Hx Diabetes Mellitus Type 2. 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 Denies: Hx Hepatitis Musculoskeltal Medical History: Reports Hx Arthritis Psychiatric Medical History: Reports: Hx Depression Infectious Medical History: Reports: Hx C-Diff, Hx MRSA. Denies: Hx Hepatitis Past Surgical History: Reports: Other - Left chest tube insertion. - Immunizations Hx Diphtheria, Pertussis, Tetanus Vaccination: Yes Hx Pneumococcal Vaccination: 04/05/14 Review of Systems - Review of Systems Constitutional: No symptoms reported, Malaise EENT: No symptoms reported Cardiovascular: No symptoms reported Respiratory: No symptoms reported Gastrointestinal: No symptoms reported, Abdominal pain Genitourinary: No symptoms reported Male Genitourinary: No symptoms reported Musculoskeletal: No symptoms reported Skin: No symptoms reported Hematologic/Lymphatic: No symptoms reported Neurological/Psychological: No symptoms reported Physical Exam - Vital signs Vitals: Temp Pulse Resp BP Pulse Ox 97.7 F 95 18 99/78 L 94 02/05/17 19:01 02/05/17 19:01 02/05/17 19:01 02/05/17 19:01 02/05/17 19:01 Interpretation: Normal - General General appearance: Appears well, Alert - HEENT Head: Normocephalic, Atraumatic Eyes: Normal Pupils: PERRL - Respiratory Respiratory status: No respiratory distress Chest status: Nontender Breath sounds: Normal Chest palpation: Normal - Cardiovascular Rhythm: Regular Heart sounds: Normal auscultation Murmur: No - Abdominal Inspection: Normal Distension: No distension Bowel sounds: Normal Tenderness: Nontender, Other - Mild abdominal pain diffusely. No guarding. No rebound per. No: McBurney's point, Pacheco's sign, Guarding Organomegaly: No organomegaly - Back Back: Normal, Nontender - Extremities General upper extremity: Normal inspection, Nontender, Normal color, Normal ROM , Normal temperature General lower extremity: Normal inspection, Nontender, Normal color, Normal ROM , Normal temperature, Normal weight bearing. No: Tania's sign - Neurological Neuro grossly intact: Yes Cognition: Normal Orientation: AAOx4 [place] Coma Scale Eye Opening: Spontaneous [place] Coma Scale Verbal: Oriented [place] Coma Scale Motor: Obeys Commands [place] Coma Scale Total: 15 Speech: Normal Motor strength normal: LUE, RUE, LLE, RLE Sensory: Normal - Psychological Associated symptoms: Normal affect, Normal mood - Skin Skin Temperature: Warm Skin Moisture: Dry Skin Color: Normal Course - Re-evaluation Re-evalutation: 02/05/17 22:01 Well-appearing male in no major distress at this time. Will redo labs. Pain meds as needed. Will CT scan and reassess. Without fever and with a normal white count unlikely this represents a peritonitis. Is not tense. There is a soft abdomen. I do not feel the patient needs a paracentesis at this time. 02/06/17 00:00 Abnormal - 24 hr 02/05/17 19:40 RDW 20.4 H Plt Count 128 L Seg Neutrophils % 85.8 H Lymphocytes % 8.0 L Abdomen/Pelvis CT 02/05/17 00:00 IMPRESSION: Stable CT appearance of the abdomen and pelvis, again demonstrating cirrhosis, splenomegaly, diverticulosis, and diffuse mesenteric fat stranding. No acute findings. Patient has stable labs. Labs reviewed from earlier today. CT scan was performed. CT unremarkable. Patient is bargaining for admission. Find no clear convincing evidence at this time to admission patient. Patient has been admitted on multiple occasions. Explained to the patient that he needs to follow-up with his regular providers. Patient states that he has a GI appointment this week. Consulted with Dr. Bedoya who does not believe patient meets criteria for admission at this time either. We will give him a dose of potassium orally based on this hypokalemia of 3.2. Patient has potassium as well as Aldactone that he is supposed to be taken at home. Comfortable at this time discharging. 02/06/17 00:12 02/06/17 00:19 Labs- All tests 24 hr 02/05/17 02/05/17 02/05/17 19:40 19:40 21:00 WBC 8.3 RBC 5.05 Hgb 15.8 Hct 46.0 MCV 91 MCH 31.2 MCHC 34.3 RDW 20.4 H Plt Count 128 L Seg Neutrophils % 85.8 H Lymphocytes % 8.0 L Monocytes % 4.9 Eosinophils % 0.9 Basophils % 0.4 Absolute Neutrophils 7.1 Absolute Lymphocytes 0.7 Absolute Monocytes 0.4 Absolute Eosinophils 0.1 Absolute Basophils 0.0 Sodium Cancelled Cancelled Potassium Cancelled Cancelled Chloride Cancelled Cancelled Carbon Dioxide Cancelled Cancelled Anion Gap Cancelled Cancelled BUN Cancelled Cancelled Creatinine Cancelled Cancelled Est GFR ( Amer) Cancelled Cancelled Est GFR (Non-Af Amer) Cancelled Cancelled Glucose Cancelled Cancelled Calcium Cancelled Cancelled Total Bilirubin Cancelled Cancelled Direct Bilirubin Cancelled Cancelled Indirect Bilirubin Cancelled Cancelled Neonat Total Bilirubin Cancelled Cancelled AST Cancelled Cancelled ALT Cancelled Cancelled Alkaline Phosphatase Cancelled Cancelled Total Protein Cancelled Cancelled Albumin Cancelled Cancelled Lipase Cancelled Cancelled 02/05/17 23:39 WBC RBC Hgb Hct MCV MCH MCHC RDW Plt Count Seg Neutrophils % Lymphocytes % Monocytes % Eosinophils % Basophils % Absolute Neutrophils Absolute Lymphocytes Absolute Monocytes Absolute Eosinophils Absolute Basophils Sodium 138.1 Potassium 4.0 Chloride 101 Carbon Dioxide 29 Anion Gap 8 BUN 14 Creatinine 1.19 Est GFR ( Amer) > 60 Est GFR (Non-Af Amer) > 60 Glucose 77 Calcium 8.5 Total Bilirubin 1.5 H Direct Bilirubin 0.8 H Indirect Bilirubin Not Reportable Neonat Total Bilirubin Not Reportable AST 47 ALT 39 Alkaline Phosphatase 192 H Total Protein 7.1 Albumin 2.8 L Lipase 72.7 - Vital Signs Vital signs: Temp Pulse Resp BP Pulse Ox 97.9 F 101 H 16 107/71 94 02/06/17 00:00 02/06/17 00:00 02/06/17 00:00 02/06/17 00:00 02/06/17 00:00 - Laboratory Result Diagrams: 02/05/17 19:40 02/05/17 23:39 Laboratory results interpreted by me: 02/05/17 02/05/17 19:40 23:39 RDW 20.4 H Plt Count 128 L Seg Neutrophils % 85.8 H Lymphocytes % 8.0 L Total Bilirubin 1.5 H Direct Bilirubin 0.8 H Alkaline Phosphatase 192 H Albumin 2.8 L Discharge - Discharge Clinical Impression: Chronic abdominal pain Condition: Good Disposition: HOME, SELF-CARE Instructions: Abdominal Pain ([facility]) Additional Instructions: Abdominal Pain There are many causes of abdominal pain. Pain can mean a serious problem requiring surgery (such as appendicitis). It can also be an innocent problem that goes away on its own (such as a viral infection). Often, time must pass to determine the cause of pain. The physician does not feel that hospitalization is necessary, at present. Things may change within the next 24 hours. Call the doctor or come back for re- examination if any problems occur, such as: (1) Pain that becomes more severe, steady, or becomes concentrated in one specific area. Also, pain that is more severe with movement or coughing. (2) Vomiting that persists or becomes more frequent. (3) Blood in the vomitus, urine, or bowel movements. Blood in the stool may have a tarry or black appearance. (4) Shaking chills or fever greater than 100 degrees F. (5) The abdomen becomes more distended or swollen. (6) Bowel movements cease. (7) Failure to improve as expected.
[2017-02-05] MEDS ORDERED: MORPHINE SULFATE 10 MG/ML INJ IV PRN (22:24)
--- NOTE | 2017-02-05 23:18 | RADIOLOGY REPORT (SQ) ---
EXAM DESCRIPTION: CT ABD/PELVIS NO ORAL OR IV COMPLETED DATE/TIME: 02/05/2017 10:55 pm REASON FOR STUDY: abd pain COMPARISON: 01/10/2017 and 12/26/2016 TECHNIQUE: CT scan of the abdomen and pelvis performed without intravenous or oral contrast. Images reviewed with lung, soft tissue, and bone windows. Reconstructed coronal and sagittal MPR images revi ewed. All images stored on PACS. All CT scanners at this facility use dose modulation, iterative reconstruction, and/or weight based d osing when appropriate to reduce radiation dose to as low as reasonably achievable (ALARA). [facility]: Dose Right [facility]: CareDose [facility]: Dose Right [facility]: Teradose 4D [facility]: [employer] RADIATION DOSE: Up-to-date CT equipment and radiation dose reduction techniques were employed. CTDIv ol: 12.3 mGy. DLP: 630 mGy-cm.mGy. LIMITATIONS: None. FINDINGS: LOWER CHEST: Stable appearance of severe bullous disease involving the bilateral lung base s noting superimposed scarring and fibrosis. NON-CONTRASTED LIVER, SPLEEN, ADRENALS: Evaluation limited by lack of IV contrast. Stable appearance , again demonstrating a diminutive, cirrhotic appearing liver and splenomegaly. PANCREAS: No masses. No peripancreatic inflammatory changes. GALLBLADDER: No identified stones by CT criteria. No inflammatory changes to suggest cholecystitis. RIGHT KIDNEY AND URETER: No suspicious masses. Assessment limited by lack of IV contrast. No signif icant calcifications. No hydronephrosis or hydroureter. LEFT KIDNEY AND URETER: No suspicious masses. Assessment limited by lack of IV contrast. No signifi cant calcifications. No hydronephrosis or hydroureter. AORTA AND RETROPERITONEUM: No aneurysm. No retroperitoneal masses or adenopathy. BOWEL AND PERITONEAL CAVITY: Descending and rectosigmoid diverticular disease without acute infectiou s/ inflammatory changes. Re- demonstration of diffuse mesenteric fat stranding. APPENDIX: Normal. PELVIS, BLADDER, AND ABDOMINAL WALL:Re- demonstration of fat containing umbilical and left inguinal h ernias. The bladder is largely decompressed. BONES: No significant findings. OTHER: No other significant finding. IMPRESSION: Stable CT appearance of the abdomen and pelvis, again demonstrating cirrhosis, splenomeg [place], diverticulosis, and diffuse mesenteric fat stranding. No acute findings. COMMENT: Quality ID # [id number]: Final reports with documentation of one or more dose reduction techniques (e.g., Automated exposure control, adjustment of the mA and/or kV according to patient size, use of iterative reconstruction technique) TECHNICAL DOCUMENTATION: JOB ID: [id number] [employer]- All Rights Reserved
[2017-02-06 00:02] VITALS: BP 107/71
[2017-02-06 00:06] LABS: ALBUMIN 2.8 g/dL (3.5-5.0); ANION GAP 8 (5-19); BLOOD UREA NITROGEN 14 mg/dL (7-20); CALCIUM 8.5 mg/dL (8.4-10.2); CARBON DIOXIDE 29 mmol/L (22-30); CHLORIDE 101 mmol/L (98-107); CREATININE RESULT 1.19 mg/dL (0.52-1.25); GLUCOSE 77 mg/dL (75-110); SODIUM 138.1 mmol/L (137-145); TOTAL PROTEIN 7.1 g/dL (6.3-8.2)
[2017-02-06 00:07] LABS: ALANINE AMINOTRANSFERASE 39 U/L (21-72); ALKALINE PHOSPHATASE 192 U/L (38-126); ASPARTATE AMINO TRANSFERASE 47 U/L (17-59); BILIRUBIN,DIRECT 0.8 mg/dL (0.0-0.4); BILIRUBIN,TOTAL 1.5 mg/dL (0.2-1.3); LIPASE 72.7 U/L (23-300)
[2017-02-06] MEDS ORDERED: POTASSIUM CHLORIDE 10 MEQ TABLET.SA PO ONE (00:16)
[2017-02-06 00:21] LABS: APPEARANCE,URINE CLEAR; BILIRUBIN,URINE NEGATIVE (NEGATIVE); GLUCOSE, URINE NEGATIVE (NEGATIVE); KETONES,URINE 20 mg/dL (NEGATIVE); LEUKOCYTE ESTERASE,URINE TRACE (NEGATIVE); NITRITE,URINE NEGATIVE (NEGATIVE); PROTEIN,URINE NEGATIVE (NEGATIVE); URINE SPECIFIC GRAVITY 1.017
--- NOTE | 2017-02-06 07:54 | EKG REPORT ---
SEVERITY:- DEFECTIVE ECG - SINUS TACHYCARDIA POOR R PROGRESSION ANTERIOR PRECORDIAL LEADS : Confirmed by: Tamir Baron MD 06-Feb-2017 07:53:33
== END 2017-02-06 00:54 | disposition home or self-care (01) ==
LOC: ER 18:57
DX: G89.29 Other chronic pain (principal); R10.84 Generalized abdominal pain; R11.2 Nausea with vomiting, unspecified; E87.6 Hypokalemia; K74.60 Unspecified cirrhosis of liver; R16.1 Splenomegaly, not elsewhere classified; K57.30 Diverticulosis of large intestine without perforation or abscess without bleeding; E11.9 Type 2 diabetes mellitus without complications; J44.9 Chronic obstructive pulmonary disease, unspecified; F17.200 Nicotine dependence, unspecified, uncomplicated; Z88.8 Allergy status to other drugs, medicaments and biological substances; Z88.5 Allergy status to narcotic agent; Z88.0 Allergy status to penicillin; Z88.1 Allergy status to other antibiotic agents; Z86.14 Personal history of Methicillin resistant Staphylococcus aureus infection
CPT/HCPCS: 93005; 99285; 96374; 36415; 83690; 85025; 80053; 81001; 74176; 93010; J2405; J7030

== ENCOUNTER 2017-02-16 09:22 | Day surgery (SDC) | payer OTHER ==
[2017-02-16] MEDS ORDERED: MIDAZOLAM 2 MG/2 ML INJ ONE (09:45)
[2017-02-16] MEDS ORDERED: NALOXONE HCL INJ/PF 0.4 MG/1 ML SDV ONE (09:45)
[2017-02-16] MEDS ORDERED: ONDANSETRON HCL INJ/PF 4 MG/2 ML SDV ONE (09:45)
[2017-02-16] MEDS ORDERED: DIPHENHYDRAMINE HCL 50 MG/ML VIAL ONE (09:45)
[2017-02-16] MEDS ORDERED: GLUCAGON,HUMAN RECOMB 1 MG INJ ONE (09:46)
[2017-02-16] MEDS ORDERED: EPINEPHRINE INJ 1 MG/10 ML DISP.SYRIN ONE (09:46)
[2017-02-16] MEDS ORDERED: FLUMAZENIL INJ 0.5 MG/5 ML VIAL ONE (09:46)
[2017-02-16] MEDS ORDERED: FENTANYL CITRATE INJ/PF 100 MCG/2 ML AMPUL ONE (09:46)
--- NOTE | 2017-02-16 10:16 | Operative Report ---
Operative Report DATE OF SURGERY: 02/16/17 Operative Report: The risks benefits and alternatives of the procedure explained to the patient in detail and informed consent is obtained.A GIF Olympus video scope was inserted into the patient's mouth and hypopharynx, the esophagus is identified intubated and insufflated, the scope was then advanced through the esophagus stomach and duodenum, retroflexion maneuver is done, the esophagus stomach and first and second portions of the duodenum examined PREOPERATIVE DIAGNOSIS: Nausea, epigastric pain POSTOPERATIVE DIAGNOSIS: Gastritis status post biopsy rule out Helicobacter pylori. There may be grade 1 esophageal varices that are present. OPERATION: EGD with biopsy SURGEON: ELSA ABDALLA ANESTHESIA: Moderate Sedation - Total of 2 mg of Versed given in 1 mg increments , total of 50 mcg of fentanyl given in 12.5 mg increments. Conscious sedation monitoring time 30 minutes TISSUE REMOVED OR ALTERED: As noted above COMPLICATIONS: None. ESTIMATED BLOOD LOSS: None. INTRAOPERATIVE FINDINGS: As described above. PROCEDURE: Patient tolerated procedure well. No immediate postprocedure complications are noted. Patient discharged in good condition. Discharge date 02/16/2017. Discharge diet: Regular. Discharge activity: Regular. 2-3 week follow-up to discuss findings. Patient is instructed to call the office or proceed to the emergency room should there be any further problems or questions. We will wait on pathology.
[2017-02-16 11:23] VITALS: BP 92/60
== END 2017-02-16 11:20 | disposition home or self-care (01) ==
LOC: END 09:22
PROVIDERS: ATTEND Internal Medicine Gastroenterology
PROC: 0DB68ZX Excision of Stomach, Via Natural or Artificial Opening Endoscopic, Diagnostic (ICD-10-PCS; principal; 2017-02-16 10:00)
DX: R11.0 Nausea (principal); E11.9 Type 2 diabetes mellitus without complications; K80.20 Calculus of gallbladder without cholecystitis without obstruction; M19.90 Unspecified osteoarthritis, unspecified site; I51.9 Heart disease, unspecified; J45.909 Unspecified asthma, uncomplicated; Z87.891 Personal history of nicotine dependence; Z79.899 Other long term (current) drug therapy; Z79.51 Long term (current) use of inhaled steroids; Z88.5 Allergy status to narcotic agent; Z88.0 Allergy status to penicillin
CPT/HCPCS: 43239; 82962; 88342 ×2; 88305 ×2; J2250; J3010; J0171; J1200; J1610; J2310; J2405; J3490

== ENCOUNTER 2017-05-22 20:15 | Inpatient (IN) | payer OTHER, MEDICARE ==
[2017-05-22] MEDS ORDERED: IPRATROPIUM/ALBUTEROL 0.5-2.5 MG/3 ML AMPUL NEB ONE ×2 (20:36→22:28)
--- NOTE | 2017-05-22 20:40 | ER Document Report ---
ED Respiratory Problem - General Chief Complaint: Breathing Difficulty Stated Complaint: DIFFICULTY BREATHING Time Seen by Provider: 05/22/17 20:34 Mode of Arrival: Ambulatory Information source: Patient TRAVEL OUTSIDE OF THE [place] IN LAST 30 DAYS: No - HPI Patient complains to provider of: Short of breath Onset: This morning Duration: Continuous Initiating Event: No: Exertion, Exposure to chemicals, Exposure to dust, Exposure to smoke, Out of meds, URI Quality of pain: Other - TIGHTNESS, LOWER CHEST Severity: Moderate Context: Hx CHF, Hx COPD Short of Breath: Moderate Chest pain/discomfort: Constant, Tightness Cough: Nonproductive Sputum amount: None At home treatment: Bronchodilators, Oxygen - 2-1/2 LITERS/MIN Associated symptoms: None Similar symptoms previously: Yes - NOT RECENT Recently seen / treated by doctor: No - Related Data Allergies/Adverse Reactions: Heparin Analogues [Heparin Agents] Allergy (Severe, Verified 02/16/17 09:32) Thrombocytopenia heparinoids [Heparinoids] Allergy (Severe, Verified 02/16/17 09:32) Thrombocytopenia doxycycline Allergy (Intermediate, Verified 02/16/17 09:32) RED FACE AND SWELLING codeine [Codeine] Allergy (Unknown, Verified 02/16/17 09:32) GI upset Penicillins Allergy (Unknown, Verified 02/16/17 09:32) Swelling Past Medical History - General Information source: Patient - Social History Smoking Status: Former Smoker Cigarette use (# per day): No Chew tobacco use (# tins/day): No Frequency of alcohol use: None Drug Abuse: None Lives with: Family Family History: CAD, Hypertension, Other - CHF - Past Medical History Cardiac Medical History: Reports: Hx Congestive Heart Failure - Left ventricular diastolic dysfunction, Hx DVT, Hx Heart Attack, Hx Hypertension - LOW, Hx Pulmonary Embolism Denies: Hx Coronary Artery Disease, Hx Hypercholesterolemia Pulmonary Medical History: Reports: Hx COPD - 2 -3L [place], Hx Pneumonia Denies: Hx Asthma, Hx Bronchitis, Hx Sleep Apnea, Hx Tuberculosis Neurological Medical History: Denies: Hx Cerebrovascular Accident, Hx Seizures Endocrine Medical History: Reports: Hx Diabetes Mellitus Type 2. Denies: Hx Diabetes Mellitus Type 1, Hx Hyperthyroidism, Hx Hypothyroidism Renal/ Medical History: Denies: Hx Peritoneal Dialysis GI Medical History: Reports: Hx Cirrhosis - [place] secondary to alpha-1 antitrypsin deficiency., Hx Gastroesophageal Reflux Disease. Denies: Hx Hepatitis Musculoskeltal Medical History: Reports Hx Arthritis Psychiatric Medical History: Reports: Hx Depression Infectious Medical History: Reports: Hx C-Diff, Hx MRSA. Denies: Hx Hepatitis Past Surgical History: Reports: Other - Left chest tube insertion. - Immunizations Hx Diphtheria, Pertussis, Tetanus Vaccination: Yes Hx Pneumococcal Vaccination: 04/05/14 Review of Systems - Review of Systems Constitutional: Chills, Diaphoresis. denies: Fever EENT: No symptoms reported Respiratory: Short of breath, Wheezing, Other - CHEST "TIGHTNESS" Gastrointestinal: No symptoms reported Genitourinary: No symptoms reported Musculoskeletal: No symptoms reported Skin: No symptoms reported Neurological/Psychological: No symptoms reported Physical Exam - Vital signs Vitals: Temp Pulse Resp BP Pulse Ox 98.1 F 99 30 H 84/62 L 92 05/22/17 20:20 05/22/17 20:20 05/22/17 20:20 05/22/17 20:20 05/22/17 20:20 Interpretation: Hypotensive, Tachypneic. No: Tachycardic, Hypoxic - ON SUPPLEMENTAL O2, Febrile - General General appearance: Appears well, Alert In distress: Mild - RESPIRATORY - HEENT Head: Normocephalic Eyes: Normal Conjunctiva: Normal Ears: Normal Nasal: Normal Mouth/Lips: Normal Mucous membranes: Normal Pharynx: Normal Neck: Normal - Respiratory Respiratory status: Respiratory distress Chest status: Nontender Breath sounds: Decreased air movement - ALL LOBES, MORE, Wheezing - INSP. & EXP. - Cardiovascular Rhythm: Regular Heart sounds: Normal auscultation Murmur: No - Abdominal Inspection: Normal Distension: No distension Bowel sounds: Hypoactive - Back Back: Normal - Extremities General upper extremity: Normal inspection General lower extremity: Normal inspection. No: Edema - Neurological Neuro grossly intact: Yes Cognition: Normal Orientation: AAOx4 - Psychological Associated symptoms: Normal affect, Normal mood - Skin Skin Temperature: Warm Skin Moisture: Dry Skin Color: Normal Skin Turgor: Elastic Course - Vital Signs Vital signs: Temp Pulse Resp BP Pulse Ox 98.1 F 99 16 99/68 L 98 05/22/17 20:20 05/22/17 20:20 05/22/17 22:01 05/22/17 22:00 05/22/17 22:01 - Laboratory Result Diagrams: 05/22/17 20:35 05/22/17 20:35 Laboratory results interpreted by me: 05/22/17 05/22/17 05/22/17 20:35 20:35 21:00 MCV 98 H RDW 15.1 H Plt Count 120 L Lymphocytes % 12.9 L Sodium 136.9 L Alkaline Phosphatase 161 H Albumin 2.8 L Urine Urobilinogen 2.0 H Ur Leukocyte Esterase TRACE H Urine Ascorbic Acid 40 H - EKG Interpretation by Me EKG shows normal: Sinus rhythm - OR ACCELERATED JUNCTIONAL RHYTHM Rate: Normal [place]/QRS: Right axis deviation When compared to previous EKG there are: No significant change - Consults DR. BURLESON Reason for consultation: 05/22/17 23:13 AGREES WITH OUTPATIENT OBS, TELEMETRY BED. Consulted provider: will come to ER Discharge - Discharge Clinical Impression: COPD exacerbation, Hypoxemia, Chronic respiratory failure with hypoxia Condition: Fair Disposition: ADMITTED OBSERVATION Admitting Provider: Hospitalist Unit Admitted: Telemetry
[2017-05-22 20:56] LABS: ABSOLUTE EOSINOPHILS # (AUTO) 0.3 10^3/uL (0.0-0.6); ABSOLUTE LYMPHOCYTES (AUTO) 1.1 10^3/uL (0.5-4.7); ABSOLUTE MONOCYTES (AUTO) 0.8 10^3/uL (0.1-1.4); ABSOLUTE NEUT (AUTO) 6.4 10^3/uL (1.7-8.2); BASOPHILS % (AUTO) 0.4 % (0-2); EOSINOPHILS % (AUTO) 3.8 % (0-6); HEMATOCRIT 44.7 % (37.9-51.0); HEMOGLOBIN 15.1 g/dL (13.5-17.0); LYMPHOCYTES % (AUTO) 12.9 % (13-45); MEAN CORPUSCULAR HEMOGLOBIN 33.2 pg (27.0-33.4); MEAN CORPUSCULAR HGB CONC 33.8 g/dL (32.0-36.0); MEAN CORPUSCULAR VOLUME 98 fl (80-97); MONOCYTES % (AUTO) 9.3 % (3-13); PLATELET COUNT 120 10^3/uL (150-450); RED BLOOD COUNT 4.54 10^6/uL (4.35-5.55); RED CELL DISTRIBUTION WIDTH 15.1 % (11.5-14.0); SEGMENTED NEUTROPHILS % (AUTO) 73.6 % (42-78); TOTAL CELLS COUNTED % (AUTO) 100 %; WHITE BLOOD COUNT 8.7 10^3/uL (4.0-10.5)
[2017-05-22 21:11] LABS: ALANINE AMINOTRANSFERASE 45 U/L (21-72); ALBUMIN 2.8 g/dL (3.5-5.0); ALKALINE PHOSPHATASE 161 U/L (38-126); ANION GAP 6 (5-19); ASPARTATE AMINO TRANSFERASE 41 U/L (17-59); BILIRUBIN,DIRECT 0.2 mg/dL (0.0-0.4); BILIRUBIN,TOTAL 0.7 mg/dL (0.2-1.3); BLOOD UREA NITROGEN 16 mg/dL (7-20); CALCIUM 8.8 mg/dL (8.4-10.2); CARBON DIOXIDE 24 mmol/L (22-30); CHLORIDE 107 mmol/L (98-107); CREATINE KINASE 59 U/L (55-170); GLUCOSE 95 mg/dL (75-110); POTASSIUM 4.5 mmol/L (3.6-5.0); SODIUM 136.9 mmol/L (137-145); TOTAL PROTEIN 6.3 g/dL (6.3-8.2)
[2017-05-22 21:18] LABS: APPEARANCE,URINE CLEAR; BILIRUBIN,URINE NEGATIVE (NEGATIVE); COLOR,URINE YELLOW; GLUCOSE, URINE NEGATIVE (NEGATIVE); KETONES,URINE NEGATIVE (NEGATIVE); LEUKOCYTE ESTERASE,URINE TRACE (NEGATIVE); NITRITE,URINE NEGATIVE (NEGATIVE); PROTEIN,URINE NEGATIVE (NEGATIVE); URINE SPECIFIC GRAVITY 1.023
--- NOTE | 2017-05-22 21:19 | RADIOLOGY REPORT (SQ) ---
EXAM DESCRIPTION: CHEST SINGLE VIEW COMPLETED DATE/TIME: 05/22/2017 9:08 pm REASON FOR STUDY: DYSPNEA, Hx COPD, CHF COMPARISON: 2017. NUMBER OF VIEWS: One view. TECHNIQUE: Single frontal radiographic view of the chest acquired. LIMITATIONS: None. FINDINGS: LUNGS AND PLEURA: Hyperinflation. 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 Chronic right mid scratch sec chronic areas of lung scarring. No superimposed pne umonia or failure. No suspicious developing opacities. MEDIASTINUM AND HILAR STRUCTURES: No masses. Contour normal. HEART AND VASCULAR STRUCTURES: Heart normal in size. Normal vasculature. BONES: No acute findings. HARDWARE: None in the chest. OTHER: No other significant finding. IMPRESSION: COPD. Chronic changes without evidence of superimposed pneumonia or CHF. TECHNICAL DOCUMENTATION: JOB ID: [id number] [employer]- All Rights Reserved
[2017-05-22 21:33] LABS: CREATINE KINASE MB 1.19 ng/mL (<4.55); NT PRO BNP 291 pg/mL (5-900)
[2017-05-22 21:36] LABS: TROPONIN I < 0.012 ng/mL
[2017-05-22] MEDS ORDERED: NORMAL SALINE 1000 ML 500 ML IV ONE (22:40)
[2017-05-22] MEDS ORDERED: MAGNESIUM SULFATE INJ 8 MEQ/2 ML IV ONE (22:41)
[2017-05-22] MEDS ORDERED: PROMETHAZINE HCL INJ 25 MG/1 ML VIAL IV PRN (23:45)
[2017-05-22] MEDS ORDERED: ZOLPIDEM TARTRATE 5 MG TABLET PO PRN (23:45)
[2017-05-22] MEDS ORDERED: MAGNESIUM HYDROXIDE SUSP 30 ML UDCUP PO PRN (23:45)
[2017-05-22] MEDS ORDERED: ACETAMINOPHEN 325 MG TABLET PO PRN (23:45)
[2017-05-22] MEDS ORDERED: ALBUTEROL SULFATE 0.083% NEB 2.5 MG/3 ML AMPUL NEB PRN (23:45)
[2017-05-22] MEDS ORDERED: RINGERS SOLUTION,LACTATED 1,000 ML IV PRN (23:45)
[2017-05-22] MEDS ORDERED: PREDNISONE 20 MG TABLET PO SCH (23:45)
--- NOTE | 2017-05-23 00:17 | PDOC H&P ---
History of Present Illness Admission Date/PCP: 05/22/17 23:29 Patient complains of: Cough and shortness of breath History of Present Illness: CHATO BRAXTON is a 61 year old male with a history of chronic respiratory failure on home oxygen secondary to underlying alpha 1 antitrypsin deficiency. He apparently was in his normal state of health until about a week ago. He added doxycycline back into his regimen. He did not improve and today worsened and so presented to the emergency room. Here he was evaluated and found not to have an acute pneumonia. He was given bronchodilator treatment with improvement and was referred to us for further management Past Medical History Cardiac Medical History: Reports: Congestive Heart Failure - Left ventricular diastolic dysfunction, DVT, Myocardial Infarction, Hypertension - LOW, Pulmonary Embolism Denies: Coronary Artery Disease, Hyperlipidema Pulmonary Medical History: Reports: Chronic Obstructive Pulmonary Disease (COPD ) - 2 -3L [place], Pneumonia, Respiratory Failure Denies: Asthma, Bronchitis, Sleep Apnea, Tuberculosis Neurological Medical History: Denies: Seizures Endocrine Medical History: Denies: Diabetes Mellitus Type 1, Hyperthyroidism, Hypothyroidism GI Medical History: Reports: 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 Social History Lives with: Spouse/Significant other Smoking Status: Former Smoker Frequency of Alcohol Use: None Hx Recreational Drug Use: No Drugs: None Hx Prescription Drug Abuse: No - Advance Directive Resuscitation Status: Full Code Family History Family History: CAD, Hypertension, Other - CHF Parental Family History Reviewed: Yes Children Family History Reviewed: Yes Sibling(s) Family History Reviewed.: Yes Medication/Allergy Home Medications: Gabapentin 300 mg PO QHS 12/24/16 Gabapentin [Neurontin] 600 mg PO DAILY 12/24/16 Omeprazole 20 mg PO BID 12/24/16 Docusate Sodium [Colace 100 mg Capsule] 100 mg PO BID #60 capsule 12/25/16 Ipratropium [place] [Atrovent 0.02% Neb 0.5 mg/2.5 ml Ampul] 1 vial NEB RTQ6 #1 pkg 09/02/17 Levalbuterol HCl [Xopenex Neb 1.25 mg/3 ml Ampul] 1 vial NEB RTQ6 #1 packet 06/11 Midodrine HCl 10 mg PO TID@0600,1130,1500 #90 tablet 12/25/16 Ondansetron [Zofran Odt 4 mg Tablet] 4 mg PO Q6HP PRN #10 tab.rapdis 12/25/16 Spironolactone [Aldactone] 50 mg PO DAILY #30 tablet 12/25/16 Tamsulosin HCl [Flomax 0.4 mg Cap.sr] 0.4 mg PO DAILY #30 cap.sr.24h 12/25/16 Theophylline Anhydrous [Partha-Dur 300 mg Tab.sr] 300 mg PO DAILY #30 tab.sr.12h 12/25/16 Albuterol Sulfate [Proair HFA] 1 - 2 puff IH Q4 PRN 02/15/17 Bumetanide [Bumex 2 mg Tablet] 1 tab PO BID PRN 02/15/17 Potassium Bicarbonate/Cit AC [Klor-Con-Ef 25 Meq Tab Eff] 10 meq PO DAILY Allergies/Adverse Reactions: Heparin Analogues [Heparin Agents] Allergy (Severe, Verified 02/16/17 09:32) Thrombocytopenia heparinoids [Heparinoids] Allergy (Severe, Verified 02/16/17 09:32) Thrombocytopenia doxycycline Allergy (Intermediate, Verified 02/16/17 09:32) RED FACE AND SWELLING codeine [Codeine] Allergy (Unknown, Verified 02/16/17 09:32) GI upset Penicillins Allergy (Unknown, Verified 02/16/17 09:32) Swelling Review of Systems Constitutional: ABSENT: chills, fever(s), headache(s), weight gain, weight loss Eyes: ABSENT: visual disturbances Ears: ABSENT: hearing changes Cardiovascular: ABSENT: chest pain, dyspnea on exertion, edema, orthropnea, palpitations Respiratory: PRESENT: cough, dyspnea Gastrointestinal: ABSENT: abdominal pain, constipation, diarrhea, hematemesis, hematochezia, nausea, vomiting Genitourinary: PRESENT: nocturia. ABSENT: dysuria, hematuria Musculoskeletal: ABSENT: joint swelling Integumentary: ABSENT: rash, wounds Neurological: ABSENT: abnormal gait, abnormal speech, confusion, dizziness, focal weakness, syncope Psychiatric: ABSENT: anxiety, depression, homidical ideation, suicidal ideation Endocrine: ABSENT: cold intolerance, heat intolerance, polydipsia, polyuria Hematologic/Lymphatic: ABSENT: easy bleeding, easy bruising Physical Exam Vital Signs: Temp Pulse Resp BP Pulse Ox 98.1 F 99 16 99/68 L 98 05/22/17 20:20 05/22/17 20:20 05/22/17 22:01 05/22/17 22:00 05/22/17 22:01 General appearance: PRESENT: no acute distress, cooperative, thin Head exam: PRESENT: atraumatic, normocephalic Eye exam: PRESENT: conjunctiva pink, EOMI, PERRLA. ABSENT: scleral icterus Ear exam: PRESENT: normal external ear exam Mouth exam: PRESENT: moist, tongue midline Neck exam: ABSENT: carotid bruit, JVD, lymphadenopathy, thyromegaly Respiratory exam: PRESENT: clear to auscultation porfirio. ABSENT: rales, rhonchi, wheezes Cardiovascular exam: PRESENT: RRR. ABSENT: diastolic murmur, rubs, systolic murmur Pulses: PRESENT: normal carotid pulses, normal dorsalis pedis pul GI/Abdominal exam: PRESENT: normal bowel sounds, soft. ABSENT: distended, guarding, mass, organolmegaly, rebound, tenderness Rectal exam: PRESENT: deferred Extremities exam: PRESENT: full ROM. ABSENT: calf tenderness, clubbing, pedal edema Neurological exam: PRESENT: alert, awake, oriented to person, oriented to place , oriented to time, oriented to situation, CN II-XII grossly intact. ABSENT: motor sensory deficit Psychiatric exam: PRESENT: appropriate affect, normal mood. ABSENT: homicidal ideation, suicidal ideation Skin exam: PRESENT: dry, intact, warm. ABSENT: cyanosis, rash Results Laboratory Results: 05/22/17 05/22/17 05/22/17 20:35 20:35 20:35 WBC 8.7 Hgb 15.1 Hct 44.7 Plt Count 120 L Sodium 136.9 L Potassium 4.5 Chloride 107 Carbon Dioxide 24 BUN 16 Creatinine 0.90 AST 41 ALT 45 Alkaline Phosphatase 161 H Creatine Kinase 59 CK-MB (CK-2) 1.19 Troponin I < 0.012 NT-Pro-B Natriuret Pep 291 Total Protein 6.3 Impressions: Chest X-Ray 05/22/17 20:35 IMPRESSION: COPD. Chronic changes without evidence of superimposed pneumonia or CHF. Assessment & Plan - Diagnosis (1) Acute and chronic respiratory failure with hypoxia Is this a current diagnosis for this admission?: Yes (2) Malnutrition Qualifiers: Malnutrition type: protein-calorie malnutrition Protein-calorie malnutrition severity: moderate Qualified Code(s): E44.0 - Moderate protein- calorie malnutrition Is this a current diagnosis for this admission?: Yes (3) Heparin induced thrombocytopenia (HIT) Is this a current diagnosis for this admission?: No (4) COPD exacerbation Is this a current diagnosis for this admission?: Yes (5) Thrombocytopenia Is this a current diagnosis for this admission?: Yes (6) [id number] deficiency Is this a current diagnosis for this admission?: Yes - Time Time Spent: 30 to 50 Minutes - Plan Summary Plan Summary: Patient will be admitted to observation. As he has a history of heparin induced thrombocytopenia he will receive DVT prophylaxis with mechanical means. He will be treated with bronchodilators aerosolized, supplemental oxygen and steroids. Anticipated length of stay is less than 2 midnights
[2017-05-23] MEDS ORDERED: NORMAL SALINE 1000 ML 500 ML IV ONE (00:18)
[2017-05-23] MEDS: IPRATROPIUM/ALBUTEROL 0.5-2.5 MG/3 ML AMPUL NEB SCH ×4 (00:40→20:43)
--- NOTE | 2017-05-23 01:30 | EKG REPORT ---
SEVERITY:- ABNORMAL ECG - ACCELERATED JUNCTIONAL RHYTHM BORDERLINE RIGHT AXIS DEVIATION CONSIDER ANTERIOR INFARCT : Confirmed by: Olimpia Narayan MD 23-May-2017 01:30:11
[2017-05-23] MEDS ORDERED: INFLUENZA ADLT QUAD (36MOS+) 2017-18 VAC 0.5 ML SYR IM PRN (04:40)
[2017-05-23 05:39] LABS: HEMATOCRIT 40.8 % (37.9-51.0); HEMOGLOBIN 13.8 g/dL (13.5-17.0); MEAN CORPUSCULAR HEMOGLOBIN 33.4 pg (27.0-33.4); MEAN CORPUSCULAR HGB CONC 33.9 g/dL (32.0-36.0); MEAN CORPUSCULAR VOLUME 99 fl (80-97); RED BLOOD COUNT 4.14 10^6/uL (4.35-5.55); RED CELL DISTRIBUTION WIDTH 15.1 % (11.5-14.0); WHITE BLOOD COUNT 4.3 10^3/uL (4.0-10.5)
[2017-05-23 05:50] LABS: ANION GAP 5 (5-19); BLOOD UREA NITROGEN 14 mg/dL (7-20); CALCIUM 8.3 mg/dL (8.4-10.2); CARBON DIOXIDE 26 mmol/L (22-30); CHLORIDE 108 mmol/L (98-107); CHOLESTEROL 174.78 mg/dL (0-200); GLUCOSE 91 mg/dL (75-110); POTASSIUM 4.6 mmol/L (3.6-5.0); SODIUM 138.7 mmol/L (137-145); TRIGLYCERIDES 56 mg/dL (<150)
[2017-05-23 06:00] LABS: DIRECT LDL 114 mg/dL (<100)
[2017-05-23 06:06] LABS: PLATELET COUNT 77 10^3/uL (150-450)
[2017-05-23] MEDS: DOCUSATE SODIUM 100 MG CAPSULE PO SCH (09:30)
[2017-05-23] MEDS: FAMOTIDINE 20 MG TABLET PO SCH ×2 (09:30→21:19)
--- NOTE | 2017-05-23 14:36 | Physician Advisory Note ---
Physician Advisor ProgressNote .: [facility] to [facility], I have reviewed the medical record for this patient. Physician Advisor Statement: Nice documentation of chronic resp failure requiring 2-3L O2 at baseline, malnutrition w/severity, COPD exacerbation. Please consider documenting, if you agree: 1. "Pt came in with tachypnea & labored breathing, speaking in short choppy sentences" (to support dx of Ac on Chronic Resp Failure) 2. Medical necessity for each day: "Not yet sufficiently improved for d/c", "respiratory status not back to baseline", "I am concerned about ", ... 3. "chronic diastolic CHF" Status: Medicare pt, has spent 1MN of hospital care (ED), not yet improved enough for d/c before 2MNs. Appropriate for Inpt status. Thanks! CK
--- NOTE | 2017-05-23 16:01 | PDOC PROGRESS REPORT ---
Subjective Progress Note for:: 05/23/17 Subjective:: The patient was admitted overnight with a COPD exacerbation. He has known antitrypsin 1 deficiency and follows with pulmonology in [place]. He was admitted to the hospital and started on aggressive breathing treatments and prednisone. When I saw the patient today he is acutely short of breath. He is having conversational dyspnea and difficulty speaking. He states that he does not feel any better and that he needs another breathing treatment even though it is not time. He denies fever chills. No chest pain or heart palpitations. No nausea, vomiting or diarrhea. No dysuria, frequency or hematuria. Reason For Visit: ACUTE ON CHRONIC RESP FAILURE, COPD EXACERBATION Physical Exam Vital Signs: Temp Pulse Resp BP Pulse Ox 97.8 F 81 20 94/57 L 96 05/23/17 11:00 05/23/17 14:00 05/23/17 13:58 05/23/17 11:00 05/23/17 13:58 Intake & Output 05/22/17 05/23/17 05/24/17 06:59 06:59 06:59 Intake Total 400 Output Total 225 Balance 175 Weight 47.9 kg 69.1 kg General appearance: PRESENT: mild distress, thin, other - He has significant conversational dyspnea Head exam: PRESENT: atraumatic, normocephalic Mouth exam: PRESENT: moist, tongue midline Respiratory exam: PRESENT: decreased breath sounds, wheezes, other - He has minimal wheezing but is hardly moving any air. Cardiovascular exam: PRESENT: RRR. ABSENT: diastolic murmur, rubs, systolic murmur GI/Abdominal exam: PRESENT: normal bowel sounds, soft. ABSENT: distended, guarding, mass, organolmegaly, rebound, tenderness Rectal exam: PRESENT: deferred Extremities exam: PRESENT: full ROM. ABSENT: calf tenderness, clubbing, pedal edema Neurological exam: PRESENT: alert, awake, oriented to person, oriented to place , oriented to time, oriented to situation, CN II-XII grossly intact. ABSENT: motor sensory deficit Psychiatric exam: PRESENT: appropriate affect, normal mood. ABSENT: homicidal ideation, suicidal ideation Skin exam: PRESENT: dry, intact, warm. ABSENT: cyanosis, rash Results Laboratory Results: 05/23/17 05:11 05/23/17 05:11 05/23/17 05/23/17 05:11 05:11 WBC 4.3 RBC 4.14 L Hgb 13.8 Hct 40.8 MCV 99 H MCH 33.4 MCHC 33.9 RDW 15.1 H Plt Count 77 L Sodium 138.7 Potassium 4.6 Chloride 108 H Carbon Dioxide 26 Anion Gap 5 BUN 14 Creatinine 0.82 Est GFR ( Amer) > 60 Est GFR (Non-Af Amer) > 60 Glucose 91 Calcium 8.3 L Triglycerides 56 Cholesterol 174.78 LDL Cholesterol Direct 114 H VLDL Cholesterol 11.0 HDL Cholesterol 36 L Impressions: Chest X-Ray 05/22/17 20:35 IMPRESSION: COPD. Chronic changes without evidence of superimposed pneumonia or CHF. Assessment & Plan - Diagnosis (1) Acute and chronic respiratory failure Is this a current diagnosis for this admission?: Yes Plan: At this point the patient is still above his baseline oxygen requirement. We will continue aggressive breathing treatments and therapy as outlined below. He will continue oxygen support as needed to keep his oxygen saturations in the low 90s or above. There was no pneumonia noted on his chest x-ray however due to the difficulties he is having and worsening thrombocytopenia I am going to get a CT scan of his chest for further evaluation. (2) COPD exacerbation Is this a current diagnosis for this admission?: Yes Plan: He had been started on 40 mg of p.o. prednisone. Certainly he seems to be no better and possibly even worse by his account. I am going to stop the p.o. prednisone and place him on Solu-Medrol 40 mg every 8 hours. I also am going to place him on Levaquin. (3) [id number] deficiency Is this a current diagnosis for this admission?: Yes Plan: He follows with pulmonology in [place]. (4) Heparin induced thrombocytopenia (HIT) Is this a current diagnosis for this admission?: Yes Plan: He will not be placed on prophylactic Lovenox. He will use SCDs here in the hospital. (5) Thrombocytopenia Is this a current diagnosis for this admission?: Yes Plan: Platelet level significantly dropped today. We will check another level in the morning. This could be due to his acute illness and possible infection. Levaquin has been added to his regimen. (6) Malnutrition Qualifiers: Malnutrition type: protein-calorie malnutrition Protein-calorie malnutrition severity: moderate Qualified Code(s): E44.0 - Moderate protein- calorie malnutrition Is this a current diagnosis for this admission?: Yes Plan: Continue to encourage good p.o. intake (7) Hyponatremia Is this a current diagnosis for this admission?: Yes Plan: Resolved (8) Hypotension Is this a current diagnosis for this admission?: Yes Plan: His blood pressure remains on the low side. Concerning for underlying infection. He has been started on Levaquin. - Time Time Spent with patient: 25-34 minutes - Inpatient Certification Medical Necessity: Other - Inpatient hospitalization remains necessary. The patient is actually worse today than he was when he came in the hospital according to him and his . He is going to be transitioned over to parenteral steroids. I do believe he needs antibiotics. Timing of disposition will be determined by his clinical course.
[2017-05-23] MEDS ORDERED: METHYLPREDNISOLONE INJ 40 MG/1 ML SDV IV ONE (16:15)
[2017-05-23] MEDS ORDERED: ALBUTEROL SULFATE HFA (90 MCG/PUFF) 8 GM MDI (1 MDI/ER DISP) IH PRN (17:25)
[2017-05-23] MEDS ORDERED: BUMETANIDE 1 MG TABLET PO PRN ×2 (17:25→17:33)
[2017-05-23] MEDS ORDERED: ALBUTEROL SULFATE HFA (90 MCG/PUFF) 200 PUFF/8.5 GM MDI IH PRN (17:34)
[2017-05-23] MEDS ORDERED: POTASSIUM CHLORIDE 10 MEQ TABLET.SA PO SCH (18:00)
[2017-05-23] MEDS: LEVOFLOXACIN 750 MG/D5W RTU 750 MG/150 ML RTUPB IV SCH (18:07)
[2017-05-23] MEDS: TAMSULOSIN HCL 0.4 MG CAP.SR.24H PO SCH (18:07)
[2017-05-23] MEDS: METHYLPREDNISOLONE INJ 40 MG/1 ML SDV IV SCH (21:19)
[2017-05-24] MEDS: IPRATROPIUM/ALBUTEROL 0.5-2.5 MG/3 ML AMPUL NEB SCH ×7 (00:12→23:58)
[2017-05-24 05:46] LABS: HEMATOCRIT 41.3 % (37.9-51.0); HEMOGLOBIN 14.2 g/dL (13.5-17.0); MEAN CORPUSCULAR HEMOGLOBIN 33.9 pg (27.0-33.4); MEAN CORPUSCULAR HGB CONC 34.3 g/dL (32.0-36.0); MEAN CORPUSCULAR VOLUME 99 fl (80-97); RED BLOOD COUNT 4.19 10^6/uL (4.35-5.55); WHITE BLOOD COUNT 6.2 10^3/uL (4.0-10.5)
[2017-05-24 05:47] LABS: PLATELET COUNT 77 10^3/uL (150-450)
[2017-05-24] MEDS ORDERED: (PENDING PHARMACY ID) (Midodrine Hcl [Midodrine Hcl] 10 MG) PO SCH (06:00)
[2017-05-24 06:09] LABS: ANION GAP 9 (5-19); BLOOD UREA NITROGEN 18 mg/dL (7-20); CALCIUM 9.1 mg/dL (8.4-10.2); CARBON DIOXIDE 23 mmol/L (22-30); CHLORIDE 105 mmol/L (98-107); GLUCOSE 156 mg/dL (75-110); POTASSIUM 4.7 mmol/L (3.6-5.0); SODIUM 136.9 mmol/L (137-145)
[2017-05-24] MEDS: MIDODRINE HCL 5 MG TABLET PO SCH ×3 (06:20→15:07)
[2017-05-24] MEDS: METHYLPREDNISOLONE INJ 40 MG/1 ML SDV IV SCH ×3 (06:20→22:22)
[2017-05-24] MEDS: LANSOPRAZOLE 15 MG TAB.RAP.DR PO SCH ×2 (06:21→17:13)
[2017-05-24 07:35] LABS: ABSOLUTE LYMPHOCYTES# (MANUAL) 0.2 10^3/uL (0.5-4.7); BAND NEUTROPHILS % (MANUAL) 2 % (3-5); BASOPHILS % (MANUAL) 0 % (0-2); EOSINOPHILS % (MANUAL) 0 % (0-6); LYMPHOCYTES % (MANUAL) 3 % (13-45); MONOCYTES % (MANUAL) 0 % (3-13); SEGMENTED NEUTROPHILS % (MAN) 95 % (42-78); TOTAL CELLS COUNTED 100
[2017-05-24 07:37] LABS: ANISOCYTOSIS SLIGHT; OVALOCYTES SLIGHT; PLATELET COMMENT DECREASED; POIKILOCYTOSIS SLIGHT
[2017-05-24] MEDS: SPIRONOLACTONE 25 MG TABLET PO SCH (08:40)
[2017-05-24] MEDS: DOCUSATE SODIUM 100 MG CAPSULE PO SCH (08:42)
[2017-05-24] MEDS: POTASSIUM CHLORIDE 10 MEQ TABLET.SA PO SCH ×2 (08:42→17:12)
[2017-05-24] MEDS: THEOPHYLLINE ANHYDROUS 300 MG TAB.SR.12H PO SCH (08:43)
[2017-05-24] MEDS: FAMOTIDINE 20 MG TABLET PO SCH ×2 (08:43→22:22)
[2017-05-24] MEDS: VITAMIN E (DL, ACETATE) 400 UNIT CAPSULE PO SCH (08:44)
[2017-05-24] MEDS ORDERED: (PENDING PHARMACY ID) (Spironolactone [Aldactone] 50 MG) PO SCH (10:00)
[2017-05-24] MEDS ORDERED: ALPHA LIPOIC ACID 200 MG PO SCH (10:00)
[2017-05-24] MEDS ORDERED: (PENDING PHARMACY ID) (Vitamin E [Vitamin E] 400 UNIT) PO SCH (10:00)
--- NOTE | 2017-05-24 14:03 | PDOC PROGRESS REPORT ---
Subjective Progress Note for:: 05/24/17 Subjective:: The patient was admitted overnight with a COPD exacerbation. He has known antitrypsin 1 deficiency and follows with pulmonology in [place]. He was admitted to the hospital and started on aggressive breathing treatments and prednisone. Yesterday he was not any better and actually worse and I started the patient on IV Solu-Medrol and Levaquin. Today the patient states that he is feeling better. He states that overnight he had a panic attack that was quite severe. He states he has difficulty sleeping but is reluctant to take medications to help him sleep as he is afraid he is not going to wake up. He states that he feels like he is moving air better today. He denies fever or chills. No chest pain or heart palpitations. No nausea, vomiting or diarrhea. No dysuria, frequency or hematuria. Reason For Visit: COPD EXACERBATION Physical Exam Vital Signs: Temp Pulse Resp BP Pulse Ox 97.8 F 82 16 105/60 96 05/24/17 11:44 05/24/17 11:50 05/24/17 11:50 05/24/17 11:44 05/24/17 11:50 Intake & Output 05/23/17 05/24/17 05/25/17 06:59 06:59 06:59 Intake Total 1422 Output Total 550 Balance 872 Weight 71 kg General appearance: PRESENT: no acute distress, thin, other - He is receiving oxygen via nasal cannula Head exam: PRESENT: atraumatic, normocephalic Mouth exam: PRESENT: moist, tongue midline Respiratory exam: PRESENT: decreased breath sounds - He really is not wheezing and is significantly diminished bilaterally Cardiovascular exam: PRESENT: RRR. ABSENT: diastolic murmur, rubs, systolic murmur GI/Abdominal exam: PRESENT: normal bowel sounds, soft. ABSENT: distended, guarding, mass, organolmegaly, rebound, tenderness Extremities exam: PRESENT: full ROM. ABSENT: calf tenderness, clubbing, pedal edema Neurological exam: PRESENT: alert, awake, oriented to person, oriented to place , oriented to time, oriented to situation, CN II-XII grossly intact. ABSENT: motor sensory deficit Skin exam: PRESENT: dry, intact, warm. ABSENT: cyanosis, rash Results Laboratory Results: 05/24/17 04:51 05/24/17 04:51 05/24/17 05/24/17 04:51 04:51 WBC 6.2 RBC 4.19 L Hgb 14.2 Hct 41.3 MCV 99 H MCH 33.9 H MCHC 34.3 RDW 15.0 H Plt Count 77 L Seg Neutrophils % Not Reportable Lymphocytes % Not Reportable Monocytes % Not Reportable Eosinophils % Not Reportable Basophils % Not Reportable Absolute Neutrophils Not Reportable Absolute Lymphocytes Not Reportable Absolute Monocytes Not Reportable Absolute Eosinophils Not Reportable Absolute Basophils Not Reportable Sodium 136.9 L Potassium 4.7 Chloride 105 Carbon Dioxide 23 Anion Gap 9 BUN 18 Creatinine 0.85 Est GFR ( Amer) > 60 Est GFR (Non-Af Amer) > 60 Glucose 156 H Calcium 9.1 Magnesium 2.0 Impressions: Chest X-Ray 05/22/17 20:35 IMPRESSION: COPD. Chronic changes without evidence of superimposed pneumonia or CHF. Assessment & Plan - Diagnosis (1) Acute and chronic respiratory failure Is this a current diagnosis for this admission?: Yes Plan: At this point the patient is still above his baseline oxygen requirement. We will continue aggressive breathing treatments and therapy as outlined below. He will continue oxygen support as needed to keep his oxygen saturations in the low 90s or above. There was no pneumonia noted on his chest x-ray. Initially I was considering a CT of the chest but as he is better today we will hold off on this for now. (2) COPD exacerbation Is this a current diagnosis for this admission?: Yes Plan: The patient will continue IV Solu-Medrol today. Also IV Levaquin. He may be able to transition back to p.o. prednisone tomorrow. (3) [id number] deficiency Is this a current diagnosis for this admission?: Yes Plan: He follows with pulmonology in [place]. (4) Heparin induced thrombocytopenia (HIT) Is this a current diagnosis for this admission?: Yes Plan: He will not be placed on prophylactic Lovenox. He will use SCDs here in the hospital. (5) Thrombocytopenia Is this a current diagnosis for this admission?: Yes Plan: Platelet level dropped quite a bit after admission. Today it is stable. We will just have to monitor this quite closely. (6) Malnutrition Qualifiers: Malnutrition type: protein-calorie malnutrition Protein-calorie malnutrition severity: moderate Qualified Code(s): E44.0 - Moderate protein- calorie malnutrition Is this a current diagnosis for this admission?: Yes Plan: Continue to encourage good p.o. intake (7) Hyponatremia Is this a current diagnosis for this admission?: Yes Plan: Resolved (8) Hypotension Is this a current diagnosis for this admission?: Yes Plan: His blood pressure remains on the low side. Concerning for underlying infection. He has been started on Levaquin. - Time Time Spent with patient: 15-24 minutes - Inpatient Certification Medical Necessity: Need for IV Antibiotics, Other - Inpatient hospitalization remains necessary for parenteral steroids and antibiotics. Timing of disposition will be determined by his clinical course.
[2017-05-24] MEDS: TAMSULOSIN HCL 0.4 MG CAP.SR.24H PO SCH (17:13)
[2017-05-24] MEDS: LEVOFLOXACIN 750 MG/D5W RTU 750 MG/150 ML RTUPB IV SCH (17:13)
[2017-05-24] MEDS: TRAZODONE HCL 50 MG TABLET PO SCH (22:23)
[2017-05-25] MEDS: IPRATROPIUM/ALBUTEROL 0.5-2.5 MG/3 ML AMPUL NEB SCH ×5 (03:23→20:59)
[2017-05-25] MEDS: MIDODRINE HCL 5 MG TABLET PO SCH ×3 (06:14→15:04)
[2017-05-25] MEDS: METHYLPREDNISOLONE INJ 40 MG/1 ML SDV IV SCH ×2 (06:14→14:00)
[2017-05-25] MEDS: LANSOPRAZOLE 15 MG TAB.RAP.DR PO SCH ×2 (06:14→17:11)
[2017-05-25 06:45] LABS: HEMATOCRIT 41.8 % (37.9-51.0); HEMOGLOBIN 14.3 g/dL (13.5-17.0); MEAN CORPUSCULAR HGB CONC 34.1 g/dL (32.0-36.0); MEAN CORPUSCULAR VOLUME 100 fl (80-97); RED BLOOD COUNT 4.19 10^6/uL (4.35-5.55); RED CELL DISTRIBUTION WIDTH 15.5 % (11.5-14.0)
[2017-05-25 06:55] LABS: ANION GAP 8 (5-19); BLOOD UREA NITROGEN 19 mg/dL (7-20); CALCIUM 9.4 mg/dL (8.4-10.2); CARBON DIOXIDE 25 mmol/L (22-30); CHLORIDE 106 mmol/L (98-107); GLUCOSE 131 mg/dL (75-110); MAGNESIUM 2.1 mg/dL (1.6-2.3); POTASSIUM 4.6 mmol/L (3.6-5.0); SODIUM 138.5 mmol/L (137-145)
[2017-05-25 07:15] LABS: PLATELET COUNT 96 10^3/uL (150-450)
[2017-05-25 07:17] LABS: ABSOLUTE LYMPHOCYTES# (MANUAL) 0.2 10^3/uL (0.5-4.7); ABSOLUTE MONOCYTES # (MANUAL) 0.3 10^3/uL (0.1-1.4); ABSOLUTE NEUTROPHILS# (MANUAL) 10.5 10^3/uL (1.7-8.2); ANISOCYTOSIS SLIGHT; BAND NEUTROPHILS % (MANUAL) 1 % (3-5); BASOPHILS % (MANUAL) 0 % (0-2); EOSINOPHILS % (MANUAL) 0 % (0-6); HYPOCHROMASIA SLIGHT; LYMPHOCYTES % (MANUAL) 2 % (13-45); MONOCYTES % (MANUAL) 3 % (3-13); POLYCHROMASIA SLIGHT; SEGMENTED NEUTROPHILS % (MAN) 94 % (42-78); TOTAL CELLS COUNTED 100
[2017-05-25 07:18] LABS: PLATELET COMMENT DECREASED; TOXIC GRANULATION SLIGHT
[2017-05-25] MEDS: THEOPHYLLINE ANHYDROUS 300 MG TAB.SR.12H PO SCH (09:21)
[2017-05-25] MEDS: VITAMIN E (DL, ACETATE) 400 UNIT CAPSULE PO SCH (09:21)
[2017-05-25] MEDS: DOCUSATE SODIUM 100 MG CAPSULE PO SCH (09:22)
[2017-05-25] MEDS: SPIRONOLACTONE 25 MG TABLET PO SCH (09:22)
[2017-05-25] MEDS: POTASSIUM CHLORIDE 10 MEQ TABLET.SA PO SCH ×2 (09:22→17:12)
[2017-05-25] MEDS: FAMOTIDINE 20 MG TABLET PO SCH ×2 (09:23→22:30)
[2017-05-25] MEDS: TAMSULOSIN HCL 0.4 MG CAP.SR.24H PO SCH (17:11)
[2017-05-25] MEDS: LEVOFLOXACIN 750 MG/D5W RTU 750 MG/150 ML RTUPB IV SCH (17:12)
--- NOTE | 2017-05-25 18:54 | PDOC PROGRESS REPORT ---
Subjective Progress Note for:: 05/25/17 Subjective:: he patient was admitted with a COPD exacerbation. He has known antitrypsin 1 deficiency and follows with pulmonology in [place]. He was admitted to the hospital and started on aggressive breathing treatments and steroids He is breathing better today Reason For Visit: COPD EXACERBATION Physical Exam Vital Signs: Temp Pulse Resp BP Pulse Ox 97.6 F 92 16 103/58 L 99 05/25/17 16:00 05/25/17 16:22 05/25/17 16:22 05/25/17 16:00 05/25/17 16:22 Intake & Output 05/24/17 05/25/17 05/26/17 06:59 06:59 06:59 Intake Total 1422 1040 1540 Output Total 550 Balance 872 1040 1540 Weight 71 kg 66.6 kg General appearance: PRESENT: no acute distress, well-developed, well-nourished Head exam: PRESENT: atraumatic, normocephalic Eye exam: PRESENT: conjunctiva pink, EOMI, PERRLA. ABSENT: scleral icterus Ear exam: PRESENT: normal external ear exam Mouth exam: PRESENT: moist, tongue midline Neck exam: ABSENT: carotid bruit, JVD, lymphadenopathy, thyromegaly Respiratory exam: PRESENT: rhonchi, wheezes. ABSENT: rales Cardiovascular exam: PRESENT: RRR. ABSENT: diastolic murmur, rubs, systolic murmur Pulses: PRESENT: normal dorsalis pedis pul Vascular exam: PRESENT: normal capillary refill GI/Abdominal exam: PRESENT: normal bowel sounds, soft. ABSENT: distended, guarding, mass, organolmegaly, rebound, tenderness Rectal exam: PRESENT: deferred Extremities exam: PRESENT: full ROM. ABSENT: calf tenderness, clubbing, pedal edema Neurological exam: PRESENT: alert, awake, oriented to person, oriented to place , oriented to time, oriented to situation, CN II-XII grossly intact. ABSENT: motor sensory deficit Psychiatric exam: PRESENT: appropriate affect, normal mood. ABSENT: homicidal ideation, suicidal ideation Skin exam: PRESENT: dry, intact, warm. ABSENT: cyanosis, rash Results Laboratory Results: 05/25/17 05:30 05/25/17 05:30 05/25/17 05/25/17 05:30 05:30 WBC 11.0 H RBC 4.19 L Hgb 14.3 Hct 41.8 MCV 100 H MCH 34.0 H MCHC 34.1 RDW 15.5 H Plt Count 96 L Seg Neutrophils % Not Reportable Lymphocytes % Not Reportable Monocytes % Not Reportable Eosinophils % Not Reportable Basophils % Not Reportable Absolute Neutrophils Not Reportable Absolute Lymphocytes Not Reportable Absolute Monocytes Not Reportable Absolute Eosinophils Not Reportable Absolute Basophils Not Reportable Sodium 138.5 Potassium 4.6 Chloride 106 Carbon Dioxide 25 Anion Gap 8 BUN 19 Creatinine 0.97 Est GFR ( Amer) > 60 Est GFR (Non-Af Amer) > 60 Glucose 131 H Calcium 9.4 Magnesium 2.1 Impressions: Chest X-Ray 05/22/17 20:35 IMPRESSION: COPD. Chronic changes without evidence of superimposed pneumonia or CHF. Assessment & Plan - Time Time Spent with patient: 15-24 minutes Medications reviewed and adjusted accordingly: Yes Anticipated discharge: Home - Inpatient Certification Medical Necessity: Need for Nebulizer Therapy and Monitoring of Response - Plan Summary Plan Summary: Assessment and plan Current diagnoses being treated during this admission Acute respiratory failure likely multifactorial currently on steroids as well as empiric Levaquin. We will taper his steroids as per his clinical course. 2. Alpha 1 antitrypsin deficiency clinic contributing to above. 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 COPD with acute exacerbation we will taper steroids Spies clinical course 4. Thrombocytopenia we will continue to monitor his platelet count 5. Malnutrition, protein calorie moderate. Nutrition evaluation on dietary supplementations. 6. Hyponatremia resolved 7. Hypotension resolved
[2017-05-25] MEDS: TRAZODONE HCL 50 MG TABLET PO SCH (23:12)
[2017-05-26] MEDS: METHYLPREDNISOLONE INJ 40 MG/1 ML SDV IV SCH ×2 (01:02→10:52)
[2017-05-26] MEDS: IPRATROPIUM/ALBUTEROL 0.5-2.5 MG/3 ML AMPUL NEB SCH ×6 (04:06→19:54)
[2017-05-26] MEDS: LANSOPRAZOLE 15 MG TAB.RAP.DR PO SCH ×2 (06:47→17:47)
[2017-05-26] MEDS: MIDODRINE HCL 5 MG TABLET PO SCH ×3 (06:47→15:27)
[2017-05-26] MEDS: POTASSIUM CHLORIDE 10 MEQ TABLET.SA PO SCH ×2 (08:19→17:47)
--- NOTE | 2017-05-26 10:24 | EKG REPORT ---
SEVERITY:- ABNORMAL ECG - SINUS RHYTHM BORDERLINE RIGHT AXIS DEVIATION CONSIDER ANTERIOR INFARCT : Confirmed on behalf of: Tamir Baron MD 26-May-2017 10:23:26
[2017-05-26] MEDS: SPIRONOLACTONE 25 MG TABLET PO SCH (10:52)
[2017-05-26] MEDS: FAMOTIDINE 20 MG TABLET PO SCH ×2 (10:52→22:05)
[2017-05-26] MEDS: DOCUSATE SODIUM 100 MG CAPSULE PO SCH (10:52)
[2017-05-26] MEDS: VITAMIN E (DL, ACETATE) 400 UNIT CAPSULE PO SCH (10:53)
[2017-05-26] MEDS: THEOPHYLLINE ANHYDROUS 300 MG TAB.SR.12H PO SCH (10:53)
[2017-05-26] MEDS: TAMSULOSIN HCL 0.4 MG CAP.SR.24H PO SCH (17:47)
[2017-05-26] MEDS: LEVOFLOXACIN 750 MG/D5W RTU 750 MG/150 ML RTUPB IV SCH (17:47)
[2017-05-26] MEDS ORDERED: MAGNESIUM HYDROXIDE SUSP 30 ML UDCUP PO PRN (18:28)
--- NOTE | 2017-05-26 18:30 | PDOC PROGRESS REPORT ---
Subjective Progress Note for:: 05/26/17 Subjective:: he patient was admitted with a COPD exacerbation. He has known antitrypsin 1 deficiency and follows with pulmonology in [place]. He was admitted to the hospital and started on aggressive breathing treatments and steroids He is breathing better today however he c/o gassy feeling and indigestion. Denies any chest pain. He does not feel as good as yesterday Reason For Visit: COPD EXACERBATION Physical Exam Vital Signs: Temp Pulse Resp BP Pulse Ox 97.8 F 88 18 107/64 97 05/26/17 15:48 05/26/17 16:10 05/26/17 16:10 05/26/17 15:48 05/26/17 16:10 Intake & Output 05/25/17 05/26/17 05/27/17 06:59 06:59 06:59 Intake Total 1040 2027 720 Output Total 150 Balance 1040 1877 720 Weight 66.6 kg 66.2 kg General appearance: PRESENT: no acute distress, well-developed, well-nourished Head exam: PRESENT: atraumatic, normocephalic Eye exam: PRESENT: conjunctiva pink, EOMI, PERRLA. ABSENT: scleral icterus Ear exam: PRESENT: normal external ear exam Mouth exam: PRESENT: moist, tongue midline Neck exam: ABSENT: carotid bruit, JVD, lymphadenopathy, thyromegaly Respiratory exam: PRESENT: decreased breath sounds, wheezes - few scattered wheezing. ABSENT: rales, rhonchi Cardiovascular exam: PRESENT: RRR. ABSENT: diastolic murmur, rubs, systolic murmur Pulses: PRESENT: normal dorsalis pedis pul Vascular exam: PRESENT: normal capillary refill GI/Abdominal exam: PRESENT: normal bowel sounds, soft. ABSENT: distended, guarding, mass, organolmegaly, rebound, tenderness Rectal exam: PRESENT: deferred Extremities exam: PRESENT: full ROM. ABSENT: calf tenderness, clubbing, pedal edema Neurological exam: PRESENT: alert, awake, oriented to person, oriented to place , oriented to time, oriented to situation, CN II-XII grossly intact. ABSENT: motor sensory deficit Psychiatric exam: PRESENT: appropriate affect, normal mood. ABSENT: homicidal ideation, suicidal ideation Skin exam: PRESENT: dry, intact, warm. ABSENT: cyanosis, rash Results Laboratory Results: 05/25/17 05:30 01/31/18 05:30 Impressions: Chest X-Ray 05/22/17 20:35 IMPRESSION: COPD. Chronic changes without evidence of superimposed pneumonia or CHF. Assessment & Plan - Time Time Spent with patient: 15-24 minutes Medications reviewed and adjusted accordingly: Yes Anticipated discharge: Home Within: within 24 hours - Inpatient Certification Medical Necessity: Need for Nebulizer Therapy and Monitoring of Response - Plan Summary Plan Summary: Assessment and plan Current diagnoses being treated during this admission Acute respiratory failure likely multifactorial currently on steroids as well as empiric Levaquin. Continue to taper his steroids as per his clinical course. 2. Alpha 1 antitrypsin deficiency clinic contributing to above. Follow up with his loan specialist as outpatient 3. COPD with acute exacerbation -improved 4. Thrombocytopenia we will continue to monitor his platelet count 5. Malnutrition, protein calorie moderate. Nutrition evaluation and dietary supplementations. 6. Hyponatremia resolved 7. Hypotension resolved
[2017-05-26] MEDS: TRAZODONE HCL 50 MG TABLET PO SCH (22:06)
[2017-05-26] MEDS: MAGNESIUM HYDROXIDE SUSP 30 ML UDCUP PO PRN (22:16)
[2017-05-27] MEDS: IPRATROPIUM/ALBUTEROL 0.5-2.5 MG/3 ML AMPUL NEB SCH ×5 (04:20→15:59)
[2017-05-27] MEDS: MIDODRINE HCL 5 MG TABLET PO SCH ×3 (05:35→15:34)
[2017-05-27] MEDS: LANSOPRAZOLE 15 MG TAB.RAP.DR PO SCH (05:35)
[2017-05-27 06:35] LABS: ABSOLUTE EOSINOPHILS # (AUTO) 0.1 10^3/uL (0.0-0.6); ABSOLUTE LYMPHOCYTES (AUTO) 0.7 10^3/uL (0.5-4.7); ABSOLUTE MONOCYTES (AUTO) 0.6 10^3/uL (0.1-1.4); ABSOLUTE NEUT (AUTO) 7.3 10^3/uL (1.7-8.2); BASOPHILS % (AUTO) 0.1 % (0-2); EOSINOPHILS % (AUTO) 0.7 % (0-6); HEMATOCRIT 41.4 % (37.9-51.0); HEMOGLOBIN 13.9 g/dL (13.5-17.0); LYMPHOCYTES % (AUTO) 7.8 % (13-45); MEAN CORPUSCULAR HEMOGLOBIN 33.4 pg (27.0-33.4); MEAN CORPUSCULAR HGB CONC 33.6 g/dL (32.0-36.0); MEAN CORPUSCULAR VOLUME 100 fl (80-97); MONOCYTES % (AUTO) 7.5 % (3-13); RED BLOOD COUNT 4.16 10^6/uL (4.35-5.55); RED CELL DISTRIBUTION WIDTH 15.4 % (11.5-14.0); SEGMENTED NEUTROPHILS % (AUTO) 83.9 % (42-78); TOTAL CELLS COUNTED % (AUTO) 100 %; WHITE BLOOD COUNT 8.7 10^3/uL (4.0-10.5)
[2017-05-27 06:50] LABS: BLOOD UREA NITROGEN 25 mg/dL (7-20); CARBON DIOXIDE 31 mmol/L (22-30); CHLORIDE 104 mmol/L (98-107); GLUCOSE 100 mg/dL (75-110); POTASSIUM 4.1 mmol/L (3.6-5.0); SODIUM 137.5 mmol/L (137-145)
[2017-05-27 06:53] LABS: ANION GAP 3 (5-19)
[2017-05-27 07:02] LABS: PLATELET COUNT 85 10^3/uL (150-450)
[2017-05-27] MEDS: MAGNESIUM HYDROXIDE SUSP 30 ML UDCUP PO PRN (07:46)
[2017-05-27] MEDS: POTASSIUM CHLORIDE 10 MEQ TABLET.SA PO SCH (07:46)
[2017-05-27] MEDS ORDERED: PREDNISONE 10 MG TABLET PO SCH (10:00)
[2017-05-27] MEDS: THEOPHYLLINE ANHYDROUS 300 MG TAB.SR.12H PO SCH (10:35)
[2017-05-27] MEDS: DOCUSATE SODIUM 100 MG CAPSULE PO SCH (10:35)
[2017-05-27] MEDS: VITAMIN E (DL, ACETATE) 400 UNIT CAPSULE PO SCH (10:35)
[2017-05-27] MEDS: FAMOTIDINE 20 MG TABLET PO SCH (10:35)
[2017-05-27] MEDS: SPIRONOLACTONE 25 MG TABLET PO SCH (10:35)
--- NOTE | 2017-05-27 12:34 | EKG REPORT ---
SEVERITY:- ABNORMAL ECG - SINUS TACHYCARDIA LOW VOLTAGE WITH RIGHT AXIS DEVIATION BORDERLINE R WAVE PROGRESSION, ANTERIOR LEADS BORDERLINE T ABNORMALITIES, -LAT LEADS : Confirmed by: Tamir Baron MD 27-May-2017 12:33:58
--- NOTE | 2017-05-27 14:50 | PDOC DISCHARGE SUMMARY ---
General - Admit/Disc Date/PCP Admission Date/Primary Care Provider: 05/23/17 16:02 Discharge Date: 05/27/17 - Discharge Diagnosis (1) Acute and chronic respiratory failure Is this a current diagnosis for this admission?: Yes Summary: Patient back to his baseline respiratory function. (2) Pnply-1-ngddkbobnln deficiency Is this a current diagnosis for this admission?: Yes Summary: This is a chronic condition but likely underlying COPD. (3) COPD exacerbation Is this a current diagnosis for this admission?: Yes Summary: Improved Pneumonia was ruled out (4) Hyponatremia Is this a current diagnosis for this admission?: Yes (5) Malnutrition Is this a current diagnosis for this admission?: Yes Summary: Protein calorie malnutrition (6) Thrombocytopenia Is this a current diagnosis for this admission?: Yes Summary: Stable - Additional Information Resuscitation Status: Full Code Discharge Diet: As Tolerated Discharge Activity: Activity As Tolerated Prescriptions: Ciprofloxacin HCl [Cipro 500 mg Tablet] 500 mg PO BID #6 tablet Prednisone [Deltasone 10 mg Tablet] 40 mg PO DAILY #4 tablet Home Medications: Albuterol Sulfate [Proair HFA] 2 puff IH Q4HP PRN 05/23/17 Alpha Lipoic Acid [Alpha Lipoic Acid 200 mg Tablet] 200 mg PO DAILY 05/23/17 Bumetanide [Bumex 1 mg Tablet] 1 tab PO BIDP PRN 05/23/17 Midodrine HCl 10 mg PO Q8@0600,1100,1500 05/23/17 Omeprazole 20 mg PO BID 05/23/17 Potassium Chloride [Klor-Con 10 Meq Tablet.sa] 10 meq PO Q12 05/23/17 Spironolactone [Aldactone] 50 mg PO DAILY 05/23/17 Tamsulosin HCl [Flomax 0.4 mg Cap.sr] 0.4 mg PO DAILY@1800 05/23/17 Theophylline Anhydrous [Partha-Dur 300 mg Tab.sr] 300 mg PO DAILY 05/23/17 Vitamin E 400 unit PO DAILY 05/23/17 Ciprofloxacin HCl [Cipro 500 mg Tablet] 500 mg PO BID #6 tablet 05/27/17 Prednisone [Deltasone 10 mg Tablet] 40 mg PO DAILY #4 tablet 05/27/17 History of Present Illness History of Present Illness: CHATO BRAXTON is a 61 year old male Hospital Course Hospital Course: Patient was admitted with shortness of breath and difficulty breathing. He was found to have an acutely decompensated chronic respiratory failure. He has a history of COPD and this was found to be acutely decompensated also. Patient has history of underlying alpha-1 antitrypsin deficiency. He was treated with empiric antibiotics as well as bronchodilators and steroids and patient has gradually improved. His respiratory complaints of resolved. Steroid is currently being tapered. At this point patient appears to have benefited maximally from his hospital stay and is being discharged home in stable condition. Physical Exam Vital Signs: Temp Pulse Resp BP Pulse Ox 97.7 F 100 20 101/57 L 96 05/27/17 12:44 05/27/17 12:44 05/27/17 12:44 05/27/17 12:44 05/27/17 12:44 Intake & Output 05/26/17 05/27/17 05/28/17 06:59 06:59 06:59 Intake Total 2027 1040 Output Total 150 100 Balance 1877 940 Weight 66.2 kg 65.1 kg General appearance: PRESENT: no acute distress, cooperative Head exam: PRESENT: atraumatic Ear exam: PRESENT: normal external ear exam Mouth exam: PRESENT: moist, tongue midline Respiratory exam: PRESENT: symmetrical, unlabored Cardiovascular exam: PRESENT: RRR. ABSENT: diastolic murmur, rubs, systolic murmur Pulses: PRESENT: normal dorsalis pedis pul GI/Abdominal exam: PRESENT: normal bowel sounds, soft. ABSENT: distended, guarding, mass, organolmegaly, rebound, tenderness Rectal exam: PRESENT: deferred Extremities exam: PRESENT: full ROM. ABSENT: calf tenderness, clubbing, pedal edema Musculoskeletal exam: PRESENT: ambulatory Neurological exam: PRESENT: alert, awake, oriented to person, oriented to place , oriented to time, oriented to situation, CN II-XII grossly intact Results Laboratory Results: 05/27/17 05:58 05/27/17 05:58 05/27/17 05/27/17 05:58 05:58 WBC 8.7 RBC 4.16 L Hgb 13.9 Hct 41.4 MCV 100 H MCH 33.4 MCHC 33.6 RDW 15.4 H Plt Count 85 L Seg Neutrophils % 83.9 H Lymphocytes % 7.8 L Monocytes % 7.5 Eosinophils % 0.7 Basophils % 0.1 Absolute Neutrophils 7.3 Absolute Lymphocytes 0.7 Absolute Monocytes 0.6 Absolute Eosinophils 0.1 Absolute Basophils 0.0 Sodium 137.5 Potassium 4.1 Chloride 104 Carbon Dioxide 31 H Anion Gap 3 L BUN 25 H Creatinine 0.97 Est GFR ( Amer) > 60 Est GFR (Non-Af Amer) > 60 Glucose 100 Calcium 9.0 05/27/17 10:32 Troponin I < 0.012 Impressions: Chest X-Ray 05/22/17 20:35 IMPRESSION: COPD. Chronic changes without evidence of superimposed pneumonia or CHF. Status: Image reviewed by me Plan Time Spent: Greater than 30 Minutes
[2017-05-27 15:16] VITALS: BP 107/64
[2017-05-27] MEDS ORDERED: LEVOFLOXACIN 750 MG TABLET PO ONE (17:00)
[2017-05-27] MEDS ORDERED: LEVOFLOXACIN 750 MG TABLET PO SCH (18:00)
== END 2017-05-27 16:20 | disposition home or self-care (01) | DRG 189 ==
LOC: ER 20:15 → EH 23:29 → 4N 05-23 02:51 → OBSVTOIN 05-23 16:02
PROVIDERS: ADMIT Internal Medicine; ATTEND Internal Medicine
PROC: 3E0F73Z Introduction of Anti-inflammatory into Respiratory Tract, Via Natural or Artificial Opening (ICD-10-PCS; principal; 2017-05-23)
PROC: 3E0234Z Introduction of Serum, Toxoid and Vaccine into Muscle, Percutaneous Approach (ICD-10-PCS; 2017-05-27)
DX: J96.21 Acute and chronic respiratory failure with hypoxia (principal); J44.1 Chronic obstructive pulmonary disease with (acute) exacerbation; E87.1 Hypo-osmolality and hyponatremia; E44.0 Moderate protein-calorie malnutrition; I50.32 Chronic diastolic (congestive) heart failure; E88.01 Alpha-1-antitrypsin deficiency; M19.90 Unspecified osteoarthritis, unspecified site; F32.9 Major depressive disorder, single episode, unspecified; K21.9 Gastro-esophageal reflux disease without esophagitis; I11.0 Hypertensive heart disease with heart failure; D75.82 Heparin induced thrombocytopenia (HIT); Z68.21 Body mass index [BMI] 21.0-21.9, adult; Z23 Encounter for immunization; Z99.81 Dependence on supplemental oxygen; Z86.718 Personal history of other venous thrombosis and embolism; I25.2 Old myocardial infarction; Z86.711 Personal history of pulmonary embolism; Z86.14 Personal history of Methicillin resistant Staphylococcus aureus infection; Z87.891 Personal history of nicotine dependence; Z79.899 Other long term (current) drug therapy; Z82.49 Family history of ischemic heart disease and other diseases of the circulatory system; Z88.6 Allergy status to analgesic agent; Z88.3 Allergy status to other anti-infective agents; Z88.0 Allergy status to penicillin; Z88.8 Allergy status to other drugs, medicaments and biological substances
CPT/HCPCS: 36415; 71045; 80048; 80053; 80061; 80198; 81001; 82550; 82553; 83735; 83880; 84484; 85025; 85027; 90686; 93005; 93010; 94640; 96374; 99285; G0378; J1956; J2920; J3475; J3490; J7030; J7120; J7512; J7620

== ENCOUNTER 2017-06-26 12:31 | Inpatient (IN) | payer MEDICARE, OTHER ==
[2017-06-26 13:17] LABS: ABSOLUTE EOSINOPHILS # (AUTO) 0.2 10^3/uL (0.0-0.6); ABSOLUTE LYMPHOCYTES (AUTO) 0.7 10^3/uL (0.5-4.7); ABSOLUTE MONOCYTES (AUTO) 0.5 10^3/uL (0.1-1.4); ABSOLUTE NEUT (AUTO) 5.4 10^3/uL (1.7-8.2); BASOPHILS % (AUTO) 0.4 % (0-2); EOSINOPHILS % (AUTO) 3.2 % (0-6); HEMATOCRIT 44.5 % (37.9-51.0); HEMOGLOBIN 15.3 g/dL (13.5-17.0); LYMPHOCYTES % (AUTO) 9.7 % (13-45); MEAN CORPUSCULAR HEMOGLOBIN 33.7 pg (27.0-33.4); MEAN CORPUSCULAR HGB CONC 34.3 g/dL (32.0-36.0); MEAN CORPUSCULAR VOLUME 98 fl (80-97); MONOCYTES % (AUTO) 6.9 % (3-13); PLATELET COUNT 126 10^3/uL (150-450); RED BLOOD COUNT 4.53 10^6/uL (4.35-5.55); RED CELL DISTRIBUTION WIDTH 14.6 % (11.5-14.0); SEGMENTED NEUTROPHILS % (AUTO) 79.8 % (42-78); TOTAL CELLS COUNTED % (AUTO) 100 %; WHITE BLOOD COUNT 6.7 10^3/uL (4.0-10.5)
[2017-06-26 13:35] LABS: ALANINE AMINOTRANSFERASE 25 U/L (21-72); ALBUMIN 2.9 g/dL (3.5-5.0); ALKALINE PHOSPHATASE 188 U/L (38-126); ANION GAP 7 (5-19); ASPARTATE AMINO TRANSFERASE 34 U/L (17-59); BILIRUBIN,DIRECT 0.2 mg/dL (0.0-0.4); BILIRUBIN,TOTAL 0.9 mg/dL (0.2-1.3); BLOOD UREA NITROGEN 13 mg/dL (7-20); CALCIUM 8.9 mg/dL (8.4-10.2); CARBON DIOXIDE 25 mmol/L (22-30); CHLORIDE 106 mmol/L (98-107); CREATINE KINASE 62 U/L (55-170); GLUCOSE 120 mg/dL (75-110); POTASSIUM 4.2 mmol/L (3.6-5.0); SODIUM 137.7 mmol/L (137-145); TOTAL PROTEIN 6.1 g/dL (6.3-8.2)
[2017-06-26 13:47] LABS: CREATINE KINASE MB 1.26 ng/mL (<4.55); NT PRO BNP 221 pg/mL (5-900)
[2017-06-26 13:49] LABS: TROPONIN I < 0.012 ng/mL
--- NOTE | 2017-06-26 14:07 | RADIOLOGY REPORT (SQ) ---
EXAM DESCRIPTION: CHEST SINGLE VIEW COMPLETED DATE/TIME: 06/26/2017 1:53 pm REASON FOR STUDY: dyspnea COMPARISON: 05/22/2017. NUMBER OF VIEWS: One view. TECHNIQUE: Single frontal radiographic view of the chest acquired. LIMITATIONS: None. FINDINGS: LUNGS AND PLEURA: Chronic scarring. No opacities, masses or pneumothorax. No pleural effu more. Attenuated blood vessels and flattened jaya-diaphragms. MEDIASTINUM AND HILAR STRUCTURES: No masses. Contour normal. HEART AND VASCULAR STRUCTURES: Heart normal in size. Normal vasculature. BONES: No acute findings. HARDWARE: None in the chest. OTHER: No other significant finding. IMPRESSION: COPD. CHRONIC SCARRING. NO ACUTE RADIOGRAPHIC FINDING IN THE CHEST. TECHNICAL DOCUMENTATION: JOB ID: [id number] [employer]- All Rights Reserved Reading location - IP/workstation name: [email or web address]
[2017-06-26 14:40] LABS: APPEARANCE,URINE CLEAR; BILIRUBIN,URINE NEGATIVE (NEGATIVE); COLOR,URINE YELLOW; GLUCOSE, URINE NEGATIVE (NEGATIVE); KETONES,URINE NEGATIVE (NEGATIVE); LEUKOCYTE ESTERASE,URINE TRACE (NEGATIVE); NITRITE,URINE NEGATIVE (NEGATIVE); PROTEIN,URINE NEGATIVE (NEGATIVE); URINE SPECIFIC GRAVITY 1.026; UROBILINOGEN,URINE NEGATIVE mg/dL (<2.0)
[2017-06-26] MEDS ORDERED: IPRATROPIUM/ALBUTEROL 0.5-2.5 MG/3 ML AMPUL NEB ONE (15:01)
[2017-06-26] MEDS ORDERED: NORMAL SALINE 500 ML IV ONE (15:02)
[2017-06-26] MEDS ORDERED: METHYLPREDNISOLONE INJ 125 MG/2 ML SDV IV ONE (15:02)
--- NOTE | 2017-06-26 15:09 | RADIOLOGY REPORT (SQ) ---
EXAM DESCRIPTION: CTA CHEST COMPLETED DATE/TIME: 06/26/2017 2:53 pm REASON FOR STUDY: hx PE, tachycardia COMPARISON: Chest x-ray dated 06/26/2017. CT abdomen and pelvis dated 02/05/2017 and CTA chest dated 09/24/2016. TECHNIQUE: CT scan of the chest performed using helical scanning technique with dynamic intravenous contrast injection. Images reviewed with lung, soft tissue and bone windows. Reconstructed coronal and sagittal MPR images reviewed. Additional 3 dimensional post-processing performed to develop Maximal Intensity Projection images (DE P). All images stored on PACS. All CT scanners at this facility use dose modulation, iterative reconstruction, and/or weight based d osing when appropriate to reduce radiation dose to as low as reasonably achievable (ALARA). [facility]: Dose Right [facility]: CareDose [facility]: Dose Right [facility]: Teradose 4D [facility]: iVilka CONTRAST TYPE AND DOSE: contrast/concentration: Isovue 370.00 mg/ml; Total Contrast Delivered: 68.0 ml; Total Saline Delivered: 108.0 ml Contrast bolus adequate for pulmonary arteries and aorta. RENAL FUNCTION: BUN 13 creatinine 0.96. RADIATION DOSE: CT Rad equipment meets quality standard of care and radiation dose reduction techniq ues were employed. CTDIvol: 13.2 - 19.0 mGy. DLP: 820 mGy-cm. . LIMITATIONS: None. FINDINGS: LUNGS AND PLEURA: Bullous emphysema with chronic scarring. No masses, infiltrates, pneumo thorax. No pleural effusions, calcifications. AORTA AND GREAT VESSELS: No aneurysm. Contrast bolus not optimized for the aorta. HEART: No pericardial effusion. No significant coronary artery calcifications. PULMONARY ARTERIES: No emboli visualized in the main pulmonary arteries or the segmental branches. HILAR AND MEDIASTINAL STRUCTURES: No identified masses or abnormal nodes. HARDWARE: None in the chest. UPPER ABDOMEN: Large amount of ascites. Limited exam. THYROID AND OTHER SOFT TISSUES: No masses. No adenopathy. BONES: No acute or significant finding. 3D MIPS: Confirm above findings. OTHER: Bilateral gynecomastia. No other significant finding. IMPRESSION: 1. NORMAL CTA OF THE CHEST. NO PULMONARY EMBOLI. 2. BULLOUS EMPHYSEMA WITH CHRONIC SCARRING. 3. LARGE AMOUNT OF ASCITES. THIS WAS NOT PRESENT ON PRIOR STUDIES IN 2017. COMMENT: Quality ID # [id number]: Final reports with documentation of one or more dose reduction techniques (e.g., Automated exposure control, adjustment of the mA and/or kV according to patient size, use of iterative reconstruction technique) TECHNICAL DOCUMENTATION: JOB ID: [id number] [employer]- All Rights Reserved Reading location - IP/workstation name: [email or web address]
--- NOTE | 2017-06-26 15:34 | EKG REPORT ---
SEVERITY:- BORDERLINE ECG - SINUS TACHYCARDIA RIGHT AXIS DEVIATION BORDERLINE T ABNORMALITIES, ANT-LAT LEADS : Confirmed by: Tamir Baron MD 26-Jun-2017 15:33:19
--- NOTE | 2017-06-26 15:37 | ER Document Report ---
ED General - General Chief Complaint: Arrhythmia Stated Complaint: COUGH Time Seen by Provider: 06/26/17 12:54 Mode of Arrival: Ambulatory Information source: Patient Notes: 61-year-old male history of COPD alpha-1 antitrypsin history of pulmonary emboli and recently off anticoagulants presents with complaints of shortness of breath. Patient notes that his heart has been racing. He denies any fevers or chills denies any chest pain. TRAVEL OUTSIDE OF THE [place] IN LAST 30 DAYS: No - HPI Onset: Yesterday Onset/Duration: Persistent Quality of pain: No pain Severity: Mild Pain Level: 1 Associated symptoms: Nonproductive cough, Shortness of breath Exacerbated by: Walking Relieved by: Denies Similar symptoms previously: Yes Recently seen / treated by doctor: Yes - Related Data Allergies/Adverse Reactions: Heparin Analogues [Heparin Agents] Allergy (Severe, Verified 02/16/17 09:32) Thrombocytopenia heparinoids [Heparinoids] Allergy (Severe, Verified 02/16/17 09:32) Thrombocytopenia doxycycline Allergy (Intermediate, Verified 02/16/17 09:32) RED FACE AND SWELLING codeine [Codeine] Allergy (Unknown, Verified 02/16/17 09:32) GI upset Penicillins Allergy (Unknown, Verified 02/16/17 09:32) Swelling Past Medical History - Social History Smoking Status: Former Smoker Cigarette use (# per day): No Chew tobacco use (# tins/day): No Smoking Education Provided: No Family History: CAD, Hypertension, Other - CHF Patient has suicidal ideation: No Patient has homicidal ideation: No - Past Medical History Cardiac Medical History: Reports: Hx Congestive Heart Failure, Hx DVT, Hx Heart Attack, Hx Hypertension - LOW, Hx Pulmonary Embolism Denies: Hx Coronary Artery Disease, Hx Hypercholesterolemia Pulmonary Medical History: Reports: Hx COPD, Hx Pneumonia, Hx Respiratory Failure Denies: Hx Asthma, Hx Bronchitis, Hx Sleep Apnea, Hx Tuberculosis Neurological Medical History: Denies: Hx Cerebrovascular Accident, Hx Seizures Endocrine Medical History: Reports: Hx Diabetes Mellitus Type 2. 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 Denies: Hx Hepatitis Musculoskeltal Medical History: Reports Hx Arthritis Psychiatric Medical History: Reports: Hx Depression Infectious Medical History: Reports: Hx C-Diff, Hx MRSA. Denies: Hx Hepatitis Past Surgical History: Reports: Other - Left chest tube insertion. - Immunizations Hx Diphtheria, Pertussis, Tetanus Vaccination: Yes Hx Pneumococcal Vaccination: 04/05/14 Review of Systems - Review of Systems Notes: REVIEW OF SYSTEMS: CONSTITUTIONAL : Denies fever, chills, or sweats. Denies recent illness. EENT: Denies eye, ear, throat, or mouth pain or symptoms. Denies nasal or sinus congestion or discharge. Denies throat, tongue, or mouth swelling or difficulty swallowing. CARDIOVASCULAR: Admits to heart racing RESPIRATORY: Admits shortness breath difficulty breathing GASTROINTESTINAL: Denies abdominal pain or distention. Denies nausea, vomiting , or diarrhea. Denies blood in vomitus, stools, or per rectum. Denies black, tarry stools. Denies constipation. GENITOURINARY: Denies difficulty urinating, painful urination, burning, frequency, blood in urine, or discharge. MUSCULOSKELETAL: Denies back or neck pain or stiffness. Denies joint pain or swelling. SKIN: Denies rash, lesions or sores. HEMATOLOGIC : Denies easy bruising or bleeding. LYMPHATIC: Denies swollen, enlarged glands. NEUROLOGICAL: Denies confusion or altered mental status. Denies passing out or loss of consciousness. Denies dizziness or lightheadedness. Denies headache. Denies weakness or paralysis or loss of use of either side. Denies problems with gait or speech. Denies sensory loss, numbness, or tingling. Denies seizures. PSYCHIATRIC: Denies anxiety or stress. Denies depression, suicidal ideation, or homicidal ideation. ALL OTHER SYSTEMS REVIEWED AND NEGATIVE. Dictation was performed using [employer] voice recognition software PHYSICAL EXAMINATION: GENERAL: Well-appearing, well-nourished and in mild respiratory distress HEAD: Atraumatic, normocephalic. EYES: Pupils equal round and reactive to light, extraocular movements intact, sclera anicteric, conjunctiva are normal. ENT: Nares patent, oropharynx clear without exudates. Moist mucous membranes. NECK: Normal range of motion, supple without lymphadenopathy LUNGS: Inspiratory expiratory wheezing all throughout HEART: Tachycardia ABDOMEN: Soft, nontender, nondistended abdomen. No guarding, no rebound. No masses appreciated. Musculoskeletal: Normal range of motion, no pitting or edema. No cyanosis. NEUROLOGICAL: Cranial nerves grossly intact. Normal speech, normal gait. Normal sensory, motor exams PSYCH: Normal mood, normal affect. SKIN: Warm, Dry, normal turgor, no rashes or lesions noted. Physical Exam - Vital signs Vitals: Temp Pulse Resp BP Pulse Ox 98.5 F 133 H 16 92/54 L 94 06/26/17 12:35 06/26/17 12:35 06/26/17 12:35 06/26/17 12:35 06/26/17 12:35 Course - Re-evaluation Re-evalutation: 06/26/17 15:42 Patient presents at his baseline COPD exacerbation, patient is noted to be tachypneic tachycardic upon arrival however his tachycardia appears to be new in onset, heart rates been between the 130s-160s sinus. He was given breathing treatments his breathing did improve, a CTA was performed which was negative for any pulmonary emboli. I will admit the patient for the pulmonary difficulty and tachycardia - Vital Signs Vital signs: Temp Pulse Resp BP Pulse Ox 98.5 F 133 H 15 93/53 L 98 06/26/17 12:35 06/26/17 12:35 06/26/17 14:01 06/26/17 14:01 06/26/17 14:01 - Laboratory Result Diagrams: 06/26/17 13:00 06/26/17 13:00 Laboratory results interpreted by me: 06/26/17 06/26/17 06/26/17 13:00 13:00 14:21 MCV 98 H MCH 33.7 H RDW 14.6 H Plt Count 126 L Seg Neutrophils % 79.8 H Lymphocytes % 9.7 L Glucose 120 H Alkaline Phosphatase 188 H Total Protein 6.1 L Albumin 2.9 L Ur Leukocyte Esterase TRACE H - Diagnostic Test Radiology reviewed: Image reviewed, Reports reviewed - EKG Interpretation by Wi EKG shows normal: Sinus rhythm, [place], Intervals, QRS Complexes Rate: Tachycardia Discharge - Discharge Clinical Impression: COPD exacerbation, Qtxwq-9-[id number] deficiency, Tachycardia CAD (coronary artery disease) Qualifiers: Coronary Disease-Associated Artery/Lesion type: kake artery [place] vs. transplanted heart: kake heart Associated angina: without angina Qualified Code(s): I25.10 - Atherosclerotic heart disease of kake coronary artery without angina pectoris Ascites Qualifiers: Ascites type: other type Qualified Code(s): R18.8 - Other ascites Condition: Stable Disposition: ADMITTED INPATIENT Admitting Provider: Hospitalist Unit Admitted: Telemetry
[2017-06-26] MEDS ORDERED: AZITHROMYCIN INJ 500 MG VIAL IV PRN (18:00)
[2017-06-26] MEDS ORDERED: NORMAL SALINE 1000 ML 1,000 ML IV ONE (18:00)
[2017-06-26] MEDS ORDERED: AZITHROMYCIN 500 MG in DEXTROSE 5%-WATER 250 ML IV ONE (18:00)
[2017-06-26] MEDS ORDERED: METHYLPREDNISOLONE INJ 40 MG/1 ML SDV IV SCH (18:00)
[2017-06-26] MEDS: METOPROLOL TARTRATE 25 MG TABLET PO SCH (18:27)
[2017-06-26] MEDS ORDERED: AZITHROMYCIN INJ 500 MG VIAL IV ONE (18:38)
--- NOTE | 2017-06-26 19:38 | PDOC H&P ---
History of Present Illness Admission Date/PCP: 06/26/17 15:43 Patient complains of: SOB, palpitations History of Present Illness: CHATO BRAXTON is a 61 year old male history of COPD, alpha-1 antitrypsin deficiency, pulmonary embolism about 2 years ago and was on anticoagulation for over 12 months and recently taken off, presented to the ED with complaint of worsening shortness of breath. Patient also reported palpitations and feeling dizzy. Symptoms have been progressive for a few days. He used his routine nebulizers without significant improvement. He reports cough productive of slightly yellowish sputum. He is on home O2, normally uses 2 L NC. In the ED he was found to be tachycardic in the 130s-150s, but this was sinus rhythm. He had tachypnea. Chest x-ray revealed no acute disease. CTA of the chest revealed no PE. Patient treated with nebulizers, O2, referred for admission. 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 Social History Smoking Status: Former Smoker Frequency of Alcohol Use: None Hx Recreational Drug Use: No Drugs: None Hx Prescription Drug Abuse: No - Advance Directive Resuscitation Status: Full Code Family History Family History: CAD, Hypertension, Other - CHF Parental Family History Reviewed: Yes Children Family History Reviewed: Unknown Sibling(s) Family History Reviewed.: Unknown Medication/Allergy Home Medications: Albuterol Sulfate [Proair HFA] 2 puff IH Q4HP PRN 05/23/17 Alpha Lipoic Acid [Alpha Lipoic Acid 200 mg Tablet] 200 mg PO DAILY 05/23/17 Bumetanide [Bumex 1 mg Tablet] 1 tab PO BIDP PRN 05/23/17 Midodrine HCl 10 mg PO Q8@0600,1100,1500 05/23/17 Omeprazole 20 mg PO BID 05/23/17 Potassium Chloride [Klor-Con 10 Meq Tablet.sa] 10 meq PO Q12 05/23/17 Spironolactone [Aldactone] 50 mg PO DAILY 05/23/17 Tamsulosin HCl [Flomax 0.4 mg Cap.sr] 0.4 mg PO DAILY@1800 05/23/17 Theophylline Anhydrous [Partha-Dur 300 mg Tab.sr] 300 mg PO DAILY 05/23/17 Vitamin E 400 unit PO DAILY 05/23/17 Ciprofloxacin HCl [Cipro 500 mg Tablet] 500 mg PO BID #6 tablet 05/27/17 Prednisone [Deltasone 10 mg Tablet] 40 mg PO DAILY #4 tablet 05/27/17 Allergies/Adverse Reactions: Heparin Analogues [Heparin Agents] Allergy (Severe, Verified 02/16/17 09:32) Thrombocytopenia heparinoids [Heparinoids] Allergy (Severe, Verified 02/16/17 09:32) Thrombocytopenia doxycycline Allergy (Intermediate, Verified 02/16/17 09:32) RED FACE AND SWELLING codeine [Codeine] Allergy (Unknown, Verified 02/16/17 09:32) GI upset Penicillins Allergy (Unknown, Verified 02/16/17 09:32) Swelling Review of Systems Review of Systems: CONSTITUTIONAL : Fever, no; chills -- yes; unexpalined fatigue -- No EENT: Denies eye, ear, throat, or mouth pain or symptoms. Denies nasal or sinus congestion or discharge. Denies throat, tongue, or mouth swelling or difficulty swallowing. CARDIOVASCULAR: Denies chest pain. Reports racing heart RESPIRATORY: Has cough, shortness of breath, difficulty breathing. GASTROINTESTINAL: Has abdominal pain or distention. Denies nausea, vomiting, or diarrhea. No rectal bleeding. GENITOURINARY: Urinary symptoms -- no. MUSCULOSKELETAL: No acute weakness SKIN: Denies rash, lesions or sores. HEMATOLOGIC : Denies easy bruising or bleeding. LYMPHATIC: Denies swollen, enlarged glands. NEUROLOGICAL: New weakness, headaches, slured speach - No PSYCHIATRIC: Changes anxiety or stress, depression, suicidal ideation, or homicidal ideation -- No ALL OTHER SYSTEMS REVIEWED AND NEGATIVE. Physical Exam Vital Signs: Temp Pulse Resp BP Pulse Ox 98.5 F 133 H 18 93/67 L 100 06/26/17 12:35 06/26/17 12:35 06/26/17 16:31 06/26/17 16:31 06/26/17 16:31 GENERAL: Well-developed, chronically ill-appearing, in some respiratory difficulty with minimal activity HEENT: Normocephalic/atraumatic, EOMI, oral mucosa mildly dry NECK supple, no JVD CARDIOVASCULAR: Tachycardic, normal S1-S2 LUNGS: Scattered wheezing bilaterally with few rhonchi ABDOMEN: Soft, distended, minimal tenderness, NL bowel sounds EXTREMITIES: Trace pedal edema present, no clubbing or cyanosis NEUROLOGICAL: Alert, oriented x 3, no focal weakness Results Laboratory Results: Laboratory results interpreted by me: 06/26/17 06/26/17 06/26/17 13:00 13:00 14:21 MCV 98 H MCH 33.7 H RDW 14.6 H Plt Count 126 L Seg Neutrophils % 79.8 H Lymphocytes % 9.7 L Glucose 120 H Alkaline Phosphatase 188 H Total Protein 6.1 L Albumin 2.9 L Ur Leukocyte Esterase TRACE H White blood cell 6.7 hemoglobin 10.3 Sodium 137 potassium 4.2 BUN 13 creatinine 0.96 Radiology reviewed: Image reviewed, Reports reviewed EKG shows normal: Sinus rhythm, [place], Intervals, QRS Complexes Rate: Tachycardia Impressions: Chest X-Ray 06/26/17 12:54 IMPRESSION: COPD. CHRONIC SCARRING. NO ACUTE RADIOGRAPHIC FINDING IN THE CHEST. Chest/Abdomen CTA 06/26/17 13:39 IMPRESSION: 1. NORMAL CTA OF THE CHEST. NO PULMONARY EMBOLI. 2. BULLOUS EMPHYSEMA WITH CHRONIC SCARRING. 3. LARGE AMOUNT OF ASCITES. THIS WAS NOT PRESENT ON PRIOR STUDIES IN 2017. Assessment & Plan - Diagnosis (1) COPD exacerbation Is this a current diagnosis for this admission?: Yes Plan: We will treat with prednisone 80 mg IV q. 8, nebulizers, O2. We will also treat with Zithromax 500 mg IV daily for possible underlying bronchitis component. (2) Tachycardia Is this a current diagnosis for this admission?: Yes Plan: Suspect this is secondary to nebulizers use, COPD exacerbation, dehydration/ intravascular volume depletion in the setting of ascites. Will treat with low- dose metoprolol, given relative hypotension, as well as gentle IV fluid. Monitor patient closely in light of reported history of CHF. (3) Ascites Qualifiers: Ascites type: other type Qualified Code(s): R18.8 - Other ascites Is this a current diagnosis for this admission?: Yes Plan: Secondary to cirrhosis. Doubt SBP, as patient has no white count, no significant abdominal tenderness. Will try ultrasound-guided paracentesis in a.m. if patient stabilizes. May need albumin infusion, especially on a hypotensive after procedure. (4) Ljwua-1-ngrkunjrtey deficiency Is this a current diagnosis for this admission?: Yes Plan: Apparent cause of cirrhosis. (5) Cirrhosis of liver Is this a current diagnosis for this admission?: Yes Plan: Manage complications as in plans elsewhere. (6) CAD (coronary artery disease) Qualifiers: Coronary Disease-Associated Artery/Lesion type: [place] artery [place] vs. transplanted heart: [place] heart Associated angina: without angina Qualified Code(s): I25.10 - Atherosclerotic heart disease of [place] coronary artery without angina pectoris Is this a current diagnosis for this admission?: Yes Plan: Trend troponin to rule out [place]. - Inpatient Certification Based on my medical assessment, after consideration of the patient's comorbidities, presenting symptoms, or acuity I expect that the services needed warrant INPATIENT care.: Yes Medical Necessity: Failure to Improve With Outpatient Therapy, Need For IV Fluids, Need For Continuous Telemetry Monitoring, Need for Nebulizer Therapy and Monitoring of Response
[2017-06-26] MEDS: METHYLPREDNISOLONE INJ 40 MG/1 ML SDV IV SCH (22:37)
[2017-06-27 05:34] LABS: INTERNATIONAL RATION (INR) 1.14; PARTIAL THROMBOPLASTIN TIME 29.2 SEC (23.5-35.8); PROTHROMBIN TIME 15.4 SEC (11.4-15.4)
[2017-06-27 05:40] LABS: BLOOD UREA NITROGEN 16 mg/dL (7-20); CALCIUM 8.4 mg/dL (8.4-10.2); GLUCOSE 148 mg/dL (75-110); POTASSIUM 4.6 mmol/L (3.6-5.0)
[2017-06-27 05:45] LABS: ANION GAP 6 (5-19); CARBON DIOXIDE 23 mmol/L (22-30); CHLORIDE 109 mmol/L (98-107)
[2017-06-27 06:01] LABS: ABSOLUTE LYMPHOCYTES (AUTO) 0.3 10^3/uL (0.5-4.7); ABSOLUTE MONOCYTES (AUTO) 0.1 10^3/uL (0.1-1.4); ABSOLUTE NEUT (AUTO) 4.5 10^3/uL (1.7-8.2); BASOPHILS % (AUTO) 0.1 % (0-2); EOSINOPHILS % (AUTO) 0.1 % (0-6); HEMATOCRIT 40.1 % (37.9-51.0); HEMOGLOBIN 13.7 g/dL (13.5-17.0); LYMPHOCYTES % (AUTO) 6.7 % (13-45); MEAN CORPUSCULAR HEMOGLOBIN 33.8 pg (27.0-33.4); MEAN CORPUSCULAR HGB CONC 34.2 g/dL (32.0-36.0); MEAN CORPUSCULAR VOLUME 99 fl (80-97); MONOCYTES % (AUTO) 1.1 % (3-13); RED BLOOD COUNT 4.06 10^6/uL (4.35-5.55); RED CELL DISTRIBUTION WIDTH 14.7 % (11.5-14.0); TOTAL CELLS COUNTED % (AUTO) 100 %; WHITE BLOOD COUNT 4.8 10^3/uL (4.0-10.5)
[2017-06-27] MEDS: METHYLPREDNISOLONE INJ 40 MG/1 ML SDV IV SCH ×2 (06:04→22:26)
[2017-06-27] MEDS: METOPROLOL TARTRATE 25 MG TABLET PO SCH ×2 (06:05→22:25)
[2017-06-27 06:20] LABS: PLATELET COUNT 81 10^3/uL (150-450)
[2017-06-27] MEDS ORDERED: METOPROLOL TARTRATE 25 MG TABLET PO ONE (09:00)
[2017-06-27] MEDS ORDERED: AZITHROMYCIN 500 MG in DEXTROSE 5%-WATER 250 ML IV SCH (10:00)
[2017-06-27] MEDS: IPRATROPIUM/ALBUTEROL 0.5-2.5 MG/3 ML AMPUL NEB PRN (11:56)
--- NOTE | 2017-06-27 13:23 | Physician Advisory Note ---
Physician Advisor ProgressNote .: Pursuant to the plan for [facility], I have reviewed the medical record for this patient. Physician Advisor Statement: Excellent documentation of clinical reasoning, evidence for COPD exacerbation ( cough, sputum, SOB, wheezing, dizziness, respiratory difficulty w/minimal activity). Please consider documenting, if you agree: 1. "Chronic Hypoxemic Respiratory Failure" (already nicely documented chronic need of 2L O2) 2. "Chronic diastolic CHF" 3. "Acute bronchitis" (vs "chronic bronchitis" - payer will be happy to assert that "chronic" was meant, with lower payment, if neither is specified) Status: 61yo Medicare pt w/underlying COPD, chr resp failure, alpha-1-AT defic , chr diast CHF, cirrhosis, who presented tachycardic & hypotensive, with new ascites along w/COPD exac, needing IVF w/care given CHF. Giving metoprolol also increases pt risk acutely due to severe COPD. Not safe for outpt tx. High risk for acute CHF, for developing Afib, for acute worsening of hypotension w/paracentesis, for worsening resp fn. Expected to require 2nd [place] of hospital care/monitoring. Appropriate for Inpt status. Thanks! CK
[2017-06-27] MEDS ORDERED: LIDOCAINE 1% INJ-PF (10 MG/ML) 30 ML SDV ONE (13:25)
[2017-06-27] MEDS ORDERED: METHYLPREDNISOLONE INJ 125 MG/2 ML SDV IV SCH (14:00)
[2017-06-27 15:12] LABS: FLUID TYPE PERITONEAL
[2017-06-27 15:13] LABS: FLUID APPEARANCE HAZY; FLUID COLOR STRAW; FLUID SOURCE ASCITES; FLUID VISCOSITY LIQUID
--- NOTE | 2017-06-27 16:04 | RADIOLOGY REPORT (SQ) ---
EXAM DESCRIPTION: U/S ABD PARACENTESIS COMPLETED DATE/TIME: 06/27/2017 3:32 pm REASON FOR STUDY: Ascites, cirrhosis COMPARISON: None. LIMITATIONS: None. PROCEDURE: Procedure, risks, benefit, and alternative explained to patient who then gave written con sent. The right lower quadrant abdominal wall marked using ultrasound guidance. A time-out was call ed for correct marking verification. Abdomen prepped and draped using sterile technique. Local anest hesia achieved using 10 ml of 1% lidocaine injection. A 6fr Jmqr-F-Akjedxcw set was introduced into the peritoneal cavity. Fluid was drained. The catheter was removed and entry site was covered with sterile bandage. No immediate complications noted. Images acquired during the procedure were stored on PACS. FINDINGS: ENTRY SITE: Right lower quadrant. FLUID VOLUME: 3,800 mL. FLUID ANALYSIS: Straw-colored. OTHER: Fluid sent to the lab for testing. IMPRESSION: SUCCESSFUL ULTRASOUND GUIDED PARACENTESIS. COMMENT: Patient medication list reviewed:Yes- Quality ID# [id number]:Eligible professional attests to docu menting in the medical record they obtained, updated, or reviewed the patient's current medications. TECHNICAL DOCUMENTATION: JOB ID: [id number] [employer]- All Rights Reserved Reading location - IP/workstation name: [email or web address]-ON LICENSE OF [facility]-RR
[2017-06-27] MEDS: AZITHROMYCIN 500 MG in DEXTROSE 5%-WATER 250 ML IV SCH (20:25)
--- NOTE | 2017-06-27 21:38 | PDOC PROGRESS REPORT ---
Subjective Progress Note for:: 06/27/17 Subjective:: Doing better, breathing better. No fever or chills. Status post paracentesis today with 3.8 L of fluid removed. No nausea or vomiting, cough better. No rectal bleeding, no hematemesis. Reason For Visit: COPD EXACERBATION,ASCITES,TACHYCARDIA Physical Exam Vital Signs: Temp Pulse Resp BP Pulse Ox 98.1 F 79 14 104/58 L 94 06/27/17 20:00 06/27/17 20:00 06/27/17 20:00 06/27/17 20:00 06/27/17 20:00 Intake & Output 06/26/17 06/27/17 06/28/17 06:59 06:59 06:59 Intake Total 621 1150 Output Total 0 Balance 621 1150 Weight 74.9 kg Results Laboratory Results: 06/27/17 04:48 06/27/17 04:48 06/27/17 06/27/17 06/27/17 04:48 04:48 13:43 WBC 4.8 RBC 4.06 L Hgb 13.7 Hct 40.1 MCV 99 H MCH 33.8 H MCHC 34.2 RDW 14.7 H Plt Count 81 L Seg Neutrophils % 92.0 H Lymphocytes % 6.7 L Monocytes % 1.1 L Eosinophils % 0.1 Basophils % 0.1 Absolute Neutrophils 4.5 Absolute Lymphocytes 0.3 L Absolute Monocytes 0.1 Absolute Eosinophils 0.0 Absolute Basophils 0.0 Sodium 138.0 Potassium 4.6 Chloride 109 H Carbon Dioxide 23 Anion Gap 6 BUN 16 Creatinine 1.00 Est GFR ( Amer) > 60 Est GFR (Non-Af Amer) > 60 Glucose 148 H Calcium 8.4 Fluid Type PERITONEAL Fluid Source ASCITES Fluid Color STRAW Fluid Appearance HAZY Fluid Viscosity LIQUID Fluid WBC 151 Fluid RBC 151 Impressions: Chest X-Ray 06/26/17 12:54 IMPRESSION: COPD. CHRONIC SCARRING. NO ACUTE RADIOGRAPHIC FINDING IN THE CHEST. Chest/Abdomen CTA 06/26/17 13:39 IMPRESSION: 1. NORMAL CTA OF THE CHEST. NO PULMONARY EMBOLI. 2. BULLOUS EMPHYSEMA WITH CHRONIC SCARRING. 3. LARGE AMOUNT OF ASCITES. THIS WAS NOT PRESENT ON PRIOR STUDIES IN 2017. Paracentesis Ultrasound 06/27/17 00:00 IMPRESSION: SUCCESSFUL ULTRASOUND GUIDED PARACENTESIS. Assessment & Plan - Diagnosis (1) COPD exacerbation Is this a current diagnosis for this admission?: Yes Plan: We will decrease Solu-Medrol to 40 mg IV q. 8, continue nebulizers, O2. We will also continue with Zithromax 500 mg IV daily for likely underlying acute bronchitis component. (2) Tachycardia Is this a current diagnosis for this admission?: Yes Plan: Suspect this is secondary to nebulizers use, COPD exacerbation, dehydration/ intravascular volume depletion in the setting of ascites. Will continue with low-dose metoprolol. IV fluid now on hold, as tachycardia and BP have improved. Monitor patient closely in light of reported history of CHF. Will check echo. (3) Ascites Qualifiers: Ascites type: other type Qualified Code(s): R18.8 - Other ascites Is this a current diagnosis for this admission?: Yes Plan: Secondary to cirrhosis. Doubt SBP, as patient has no white count, no significant abdominal tenderness. Status post paracentesis today, with 3.8 L of fluid removed. Continue to monitor patient. Continue to hold diuretics for now (4) Naipt-1-hxrvlobnfrl deficiency Is this a current diagnosis for this admission?: Yes Plan: Apparent cause of cirrhosis. (5) Cirrhosis of liver Is this a current diagnosis for this admission?: Yes Plan: Continues to manage complications as in plans elsewhere. (6) CAD (coronary artery disease) Qualifiers: Coronary Disease-Associated Artery/Lesion type: [place] artery [place] vs. transplanted heart: [place] heart Associated angina: without angina Qualified Code(s): I25.10 - Atherosclerotic heart disease of [place] coronary artery without angina pectoris Is this a current diagnosis for this admission?: Yes Plan: Stable (7) Chronic hypoxemic respiratory failure Is this a current diagnosis for this admission?: Yes Plan: Continue Solu-Medrol, O2, nebulizers, supportive care (8) Chronic diastolic CHF (congestive heart failure) Is this a current diagnosis for this admission?: Yes Plan: We will follow-up echo. (9) Acute bronchiolitis Is this a current diagnosis for this admission?: Yes Plan: Zithromax IV as the patient COPD exacerbation. - Time Time Spent with patient: 35 or more minutes - Inpatient Certification Based on my medical assessment, after consideration of the patient's comorbidities, presenting symptoms, or acuity I expect that the services needed warrant INPATIENT care.: Yes Medical Necessity: Significant Comorbidiites Make Outpatient Treatment Too Risky - 61 year old male wit underlying COPD, chr resp failure, alpha-1-AT defic , chr diast CHF, cirrhosis, who presented with tachycardic & hypotensive, with new ascites along w/COPD exac, needing IVF w/care given CHF. Giving metoprolol also increases pt risk acutely due to severe COPD. Not safe for outpt tx. High risk for acute CHF, for acute worsening of hypotension w/paracentesis, for worsening resp function. Expected to require 2nd midnight of hospital care/ monitoring.
[2017-06-27] MEDS ORDERED: (PENDING PHARMACY ID) (Vitamin E [Vitamin E] 400 UNIT) PO SCH (21:45)
[2017-06-27] MEDS: POTASSIUM CHLORIDE 10 MEQ TABLET.SA PO SCH (22:31)
[2017-06-28] MEDS ORDERED: FAMOTIDINE 20 MG TABLET PO ONE (02:00)
[2017-06-28] MEDS: METHYLPREDNISOLONE INJ 40 MG/1 ML SDV IV SCH ×2 (05:52→14:47)
[2017-06-28 06:25] LABS: HEMATOCRIT 39.2 % (37.9-51.0); HEMOGLOBIN 13.2 g/dL (13.5-17.0); MEAN CORPUSCULAR HEMOGLOBIN 33.2 pg (27.0-33.4); MEAN CORPUSCULAR HGB CONC 33.6 g/dL (32.0-36.0); MEAN CORPUSCULAR VOLUME 99 fl (80-97); RED BLOOD COUNT 3.97 10^6/uL (4.35-5.55); RED CELL DISTRIBUTION WIDTH 14.7 % (11.5-14.0)
[2017-06-28 06:33] LABS: BLOOD UREA NITROGEN 19 mg/dL (7-20); CALCIUM 8.8 mg/dL (8.4-10.2); CHLORIDE 106 mmol/L (98-107); GLUCOSE 157 mg/dL (75-110); POTASSIUM 4.3 mmol/L (3.6-5.0); SODIUM 136.1 mmol/L (137-145)
[2017-06-28 06:34] LABS: ANION GAP 5 (5-19); CARBON DIOXIDE 25 mmol/L (22-30)
[2017-06-28 06:54] LABS: PLATELET COUNT 90 10^3/uL (150-450)
[2017-06-28 06:56] LABS: ABSOLUTE LYMPHOCYTES# (MANUAL) 0.7 10^3/uL (0.5-4.7); ABSOLUTE MONOCYTES # (MANUAL) 0.4 10^3/uL (0.1-1.4); BASOPHILS % (MANUAL) 0 % (0-2); EOSINOPHILS % (MANUAL) 0 % (0-6); LYMPHOCYTES % (MANUAL) 5 % (13-45); MONOCYTES % (MANUAL) 3 % (3-13); SEGMENTED NEUTROPHILS % (MAN) 92 % (42-78); TOTAL CELLS COUNTED 100
[2017-06-28 07:00] LABS: ANISOCYTOSIS SLIGHT; POIKILOCYTOSIS SLIGHT; TOXIC GRANULATION 1+
[2017-06-28 07:01] LABS: PLATELET COMMENT DECREASED; PLATELET LARGE PRESENT; SCHISTOCYTES SLIGHT
[2017-06-28] MEDS ORDERED: ALPHA LIPOIC ACID 200 MG PO SCH (10:00)
[2017-06-28] MEDS: POTASSIUM CHLORIDE 10 MEQ TABLET.SA PO SCH ×2 (10:31→21:10)
[2017-06-28] MEDS: METOPROLOL TARTRATE 25 MG TABLET PO SCH ×2 (10:33→21:37)
[2017-06-28] MEDS ORDERED: TAMSULOSIN HCL 0.4 MG CAP.SR.24H PO SCH (18:00)
[2017-06-28] MEDS: AZITHROMYCIN 500 MG in DEXTROSE 5%-WATER 250 ML IV SCH (18:00)
[2017-06-28] MEDS ORDERED: ALBUMIN HUMAN 50 ML IV SCH (18:14)
[2017-06-28] MEDS ORDERED: BUMETANIDE 1 MG TABLET PO PRN (18:37)
[2017-06-28] MEDS ORDERED: FAMOTIDINE 20 MG TABLET PO SCH (22:00)
[2017-06-29] MEDS: IPRATROPIUM/ALBUTEROL 0.5-2.5 MG/3 ML AMPUL NEB PRN (00:08)
[2017-06-29 00:51] VITALS: BP 95/61
[2017-06-29] MEDS ORDERED: MIDODRINE HCL 5 MG TABLET PO SCH (06:00)
[2017-06-29] MEDS ORDERED: (PENDING PHARMACY ID) (Midodrine Hcl [Midodrine Hcl] 10 MG) PO SCH (06:00)
[2017-06-29] MEDS: POTASSIUM CHLORIDE 10 MEQ TABLET.SA PO SCH (09:00)
[2017-06-29] MEDS: METOPROLOL TARTRATE 25 MG TABLET PO SCH (09:01)
[2017-06-29] MEDS ORDERED: SPIRONOLACTONE 25 MG TABLET PO SCH (10:00)
[2017-06-29] MEDS ORDERED: PREDNISONE 20 MG TABLET PO SCH (10:00)
[2017-06-29] MEDS ORDERED: (PENDING PHARMACY ID) (Spironolactone [Aldactone] 50 MG) PO SCH (10:00)
[2017-06-29] MEDS ORDERED: AZITHROMYCIN 250 MG TABLET PO SCH (18:00)
--- NOTE | 2017-07-01 23:16 | PDOC PROGRESS REPORT ---
Subjective Progress Note for:: 06/28/17 Subjective:: Patient doing well following paracentesis. Patient is hypotensive but he always is. Patient does take midodrine. Patient is requesting if he can be restarted on his home medications. Reason For Visit: COPD EXACERBATION,ASCITES,TACHYCARDIA Physical Exam Vital Signs: Temp Pulse Resp BP Pulse Ox 97.6 F 71 16 100/60 98 06/28/17 16:22 06/28/17 16:22 06/28/17 16:22 06/28/17 16:22 06/28/17 16:22 Intake & Output 06/27/17 06/28/17 06/29/17 06:59 06:59 06:59 Intake Total 621 1650 1080 Output Total 0 Balance 621 1650 1080 Weight 74.9 kg 74.9 kg General appearance: PRESENT: no acute distress, well-developed, well-nourished Head exam: PRESENT: normocephalic Eye exam: PRESENT: EOMI. ABSENT: scleral icterus Ear exam: PRESENT: normal external ear exam Mouth exam: PRESENT: moist Neck exam: ABSENT: carotid bruit, JVD, lymphadenopathy, thyromegaly Respiratory exam: PRESENT: clear to auscultation porfirio, decreased breath sounds. ABSENT: rales, rhonchi, wheezes Cardiovascular exam: PRESENT: RRR. ABSENT: diastolic murmur, rubs, systolic murmur GI/Abdominal exam: PRESENT: ascites, normal bowel sounds, soft. ABSENT: guarding, mass, organolmegaly, rebound, tenderness Rectal exam: PRESENT: deferred Extremities exam: PRESENT: full ROM. ABSENT: calf tenderness, clubbing, pedal edema Neurological exam: PRESENT: alert, awake, oriented to person, oriented to place , oriented to time, oriented to situation, CN II-XII grossly intact. ABSENT: motor sensory deficit Psychiatric exam: PRESENT: appropriate affect, normal mood. ABSENT: homicidal ideation, suicidal ideation Skin exam: PRESENT: dry, intact, warm. ABSENT: cyanosis, rash Results Laboratory Results: 06/28/17 05:32 06/28/17 05:32 06/28/17 06/28/17 05:32 05:32 WBC 13.0 H D RBC 3.97 L Hgb 13.2 L Hct 39.2 MCV 99 H MCH 33.2 MCHC 33.6 RDW 14.7 H Plt Count 90 L Seg Neutrophils % Not Reportable Lymphocytes % Not Reportable Monocytes % Not Reportable Eosinophils % Not Reportable Basophils % Not Reportable Absolute Neutrophils Not Reportable Absolute Lymphocytes Not Reportable Absolute Monocytes Not Reportable Absolute Eosinophils Not Reportable Absolute Basophils Not Reportable Sodium 136.1 L Potassium 4.3 Chloride 106 Carbon Dioxide 25 Anion Gap 5 BUN 19 Creatinine 1.06 Est GFR ( Amer) > 60 Est GFR (Non-Af Amer) > 60 Glucose 157 H Calcium 8.8 Impressions: Chest X-Ray 06/26/17 12:54 IMPRESSION: COPD. CHRONIC SCARRING. NO ACUTE RADIOGRAPHIC FINDING IN THE CHEST. Chest/Abdomen CTA 06/26/17 13:39 IMPRESSION: 1. NORMAL CTA OF THE CHEST. NO PULMONARY EMBOLI. 2. BULLOUS EMPHYSEMA WITH CHRONIC SCARRING. 3. LARGE AMOUNT OF ASCITES. THIS WAS NOT PRESENT ON PRIOR STUDIES IN 2017. Paracentesis Ultrasound 06/27/17 00:00 IMPRESSION: SUCCESSFUL ULTRASOUND GUIDED PARACENTESIS. Assessment & Plan - Diagnosis (1) Ascites Qualifiers: Ascites type: other type Qualified Code(s): R18.8 - Other ascites Is this a current diagnosis for this admission?: Yes Plan: Patient had 3.8 L removed. On 06/27/2017. Patient restarted on his midodrine, Bumex and spironolactone. Patient continued to well plan is for discharge in the morning. (2) Acute bronchiolitis Is this a current diagnosis for this admission?: Yes Plan: She will continue on steroid and azithromycin. Patient changed to prednisone and oral azithromycin in preparation for discharge in the morning. (3) Fscjf-9-qwncpsutsis deficiency Is this a current diagnosis for this admission?: Yes Plan: Because of cirrhosis. Continue supportive care. (4) CAD (coronary artery disease) Qualifiers: Coronary Disease-Associated Artery/Lesion type: [place] artery [place] vs. transplanted heart: [place] heart Associated angina: without angina Qualified Code(s): I25.10 - Atherosclerotic heart disease of [place] coronary artery without angina pectoris Is this a current diagnosis for this admission?: Yes Plan: Stable. (5) CHF (congestive heart failure) Is this a current diagnosis for this admission?: Yes Plan: She has preserved EF of 60%. Patient may have diastolic dysfunction. Continue supportive care with Bumex and spironolactone. (6) COPD exacerbation Plan: Patient was on Solu-Medrol was weaned to p.o. prednisone and oral azithromycin. (7) Cirrhosis of liver Is this a current diagnosis for this admission?: Yes Plan: Compensated. Patient status post paracentesis. Patient restarted on his diuretics. (8) Tachycardia Is this a current diagnosis for this admission?: Yes Plan: Most likely secondary to nebulizers. Resolved - Time Time Spent with patient: Less than 15 minutes Anticipated discharge: Home Within: within 24 hours
--- NOTE | 2017-07-01 23:26 | PDOC DISCHARGE SUMMARY ---
General - Admit/Disc Date/PCP Admission Date/Primary Care Provider: 06/26/17 15:43 ALFA GRANGER NP Discharge Date: 06/29/17 - Discharge Diagnosis (1) Acute bronchiolitis Is this a current diagnosis for this admission?: Yes (2) CAD (coronary artery disease) Is this a current diagnosis for this admission?: Yes (3) CHF (congestive heart failure) Is this a current diagnosis for this admission?: Yes (5) Cirrhosis of liver Is this a current diagnosis for this admission?: Yes (6) Tachycardia Is this a current diagnosis for this admission?: Yes (7) Ascites Is this a current diagnosis for this admission?: Yes - Additional Information Resuscitation Status: Full Code Discharge Activity: Activity As Tolerated Prescriptions: Azithromycin [Zithromax 250 mg Tablet] 500 mg PO QPM #5 tablet Prednisone [Deltasone 20 mg Tablet] 20 mg PO DAILY 5 Days #5 tablet Home Medications: Albuterol Sulfate [Proair HFA] 2 puff IH Q4HP PRN 05/23/17 Alpha Lipoic Acid [Alpha Lipoic Acid 200 mg Tablet] 200 mg PO DAILY 05/23/17 Bumetanide [Bumex 1 mg Tablet] 1 tab PO BIDP PRN 05/23/17 Midodrine HCl 10 mg PO Q8@0600,1100,1500 05/23/17 Potassium Chloride [Klor-Con 10 Meq Tablet.sa] 20 meq PO Q12 05/23/17 Spironolactone [Aldactone] 50 mg PO DAILY 05/23/17 Tamsulosin HCl [Flomax 0.4 mg Cap.sr] 0.4 mg PO DAILY@1800 05/23/17 Theophylline Anhydrous [Partha-Dur 300 mg Tab.sr] 300 mg PO DAILY 05/23/17 Vitamin E 400 unit PO DAILY 05/23/17 Ipratropium/Albuterol Sulfate [Iprat-Albut 0.5-3(2.5) mg/3 ml] 3 ml IH RTQ6HP PRN 06/27/17 Ranitidine HCl [Zantac 150 mg Tablet] 150 mg PO DAILY 06/27/17 Azithromycin [Zithromax 250 mg Tablet] 500 mg PO QPM #5 tablet 06/29/17 Prednisone [Deltasone 20 mg Tablet] 20 mg PO DAILY 5 Days #5 tablet 06/29/17 History of Present Illness History of Present Illness: CHATO BRAXTON is a 61 year old male history of COPD, alpha-1 antitrypsin deficiency, pulmonary embolism about 2 years ago and was on anticoagulation for over 12 months and recently taken off, presented to the ED with complaint of worsening shortness of breath. Patient also reported palpitations and feeling dizzy. Symptoms have been progressive for a few days. He used his routine nebulizers without significant improvement. He reports cough productive of slightly yellowish sputum. He is on home O2, normally uses 2 L NC. In the ED he was found to be tachycardic in the 130s-150s, but this was sinus rhythm. He had tachypnea. Chest x-ray revealed no acute disease. CTA of the chest revealed no PE. Patient treated with nebulizers, O2, referred for admission. General H&P was dictated by Riki Allison. Refer to his H&P for any further details. Hospital Course Hospital Course: Patient was admitted with signs of respiratory distress and worsening ascites. Patient has history of alpha-1 antitrypsin deficiency which is the cause of his liver cirrhosis and possible diastolic heart failure. Patient underwent paracentesis on 06/27/2017 at which 0.3 0.8 L of fluids were removed. Patient was restarted on his Midodrine, Bumex and spironolactone to following day. Patient has significantly improved. Patient also started on steroids and azithromycin for his COPD exacerbation due to acute bronchiolitis. Her breathing did improve. Patient does have chronic hypoxic respiratory failure for which she wears supplemental oxygen at home. Patient's coronary artery disease is stable. Patient more than likely has diastolic heart failure as he does have preserved EF of 60% on echo completed in 2017. Patient initially presented with tachycardia however that too did resolve prior to discharge home. States he is doing well. Patient states at baseline he does not walk very far due to pain in his legs. Patient states that his breathing is back to its normal state. Patient is being discharged on azithromycin and prednisone. Patient can home nebulizer treatments. Physical Exam Vital Signs: Temp Pulse Resp BP Pulse Ox 97.7 F 85 18 95/61 L 95 06/29/17 08:40 06/29/17 08:40 06/29/17 08:40 06/29/17 08:40 06/29/17 08:40 Intake & Output 06/28/17 06/29/17 06/30/17 06:59 06:59 06:59 Intake Total 1650 1600 Output Total 150 Balance 1650 1450 Weight 74.9 kg 74.9 kg General appearance: PRESENT: no acute distress Head exam: PRESENT: normocephalic Eye exam: PRESENT: EOMI. ABSENT: scleral icterus Ear exam: PRESENT: normal external ear exam Mouth exam: PRESENT: moist Neck exam: ABSENT: carotid bruit, JVD, lymphadenopathy, thyromegaly Respiratory exam: PRESENT: clear to auscultation porfirio. ABSENT: rales, rhonchi, wheezes Cardiovascular exam: PRESENT: RRR. ABSENT: diastolic murmur, rubs, systolic murmur Pulses: PRESENT: normal dorsalis pedis pul Vascular exam: PRESENT: normal capillary refill GI/Abdominal exam: PRESENT: distended, normal bowel sounds, soft. ABSENT: guarding, mass, organolmegaly, rebound, tenderness Rectal exam: PRESENT: deferred Extremities exam: PRESENT: full ROM. ABSENT: calf tenderness, clubbing, pedal edema Neurological exam: PRESENT: alert, awake, oriented to person, oriented to place , oriented to time, oriented to situation, CN II-XII grossly intact. ABSENT: motor sensory deficit Psychiatric exam: PRESENT: appropriate affect, normal mood. ABSENT: homicidal ideation, suicidal ideation Skin exam: PRESENT: dry, intact, warm. ABSENT: cyanosis, rash Results Laboratory Results: 06/28/17 05:32 06/28/17 05:32 Impressions: Chest X-Ray 06/26/17 12:54 IMPRESSION: COPD. CHRONIC SCARRING. NO ACUTE RADIOGRAPHIC FINDING IN THE CHEST. Chest/Abdomen CTA 06/26/17 13:39 IMPRESSION: 1. NORMAL CTA OF THE CHEST. NO PULMONARY EMBOLI. 2. BULLOUS EMPHYSEMA WITH CHRONIC SCARRING. 3. LARGE AMOUNT OF ASCITES. THIS WAS NOT PRESENT ON PRIOR STUDIES IN 2017. Paracentesis Ultrasound 06/27/17 00:00 IMPRESSION: SUCCESSFUL ULTRASOUND GUIDED PARACENTESIS. Qualifiers - * PATEINT BEING DISCHARGED WITH ANY OF THE FOLLOWING DIAGNOSIS?: Heart Failure HF Pt being discharged on ACEI for LVEF less than 40%?: No Reason(s) for not prescribing ACEI:: Tx not tolerated HF Pt being discharged on ARBS for LVEF less than 40%?: No Reason(s) for not prescribing ARBS:: Tx not tolerated HF Pt with Afib discharged with Warfarin?: No Reason(s) for not prescribing Warfarin:: Tx not tolerated HF Pt discharged on evidence-based Beta Ganga:: No Reason(s) for not prescribing evidence-based Beta Ganga:: Tx not tolerated
== END 2017-06-29 09:22 | disposition home or self-care (01) | DRG 191 ==
LOC: ER 12:31 → EH 15:43 → 4N 17:24
PROVIDERS: ADMIT Emergency Medicine; ATTEND Emergency Medicine
PROC: 3E0F73Z Introduction of Anti-inflammatory into Respiratory Tract, Via Natural or Artificial Opening (ICD-10-PCS; 2017-06-26)
PROC: 0W9G3ZX Drainage of Peritoneal Cavity, Percutaneous Approach, Diagnostic (ICD-10-PCS; principal; 2017-06-27)
DX: J44.1 Chronic obstructive pulmonary disease with (acute) exacerbation (principal); R18.8 Other ascites; J21.9 Acute bronchiolitis, unspecified; J96.11 Chronic respiratory failure with hypoxia; I50.32 Chronic diastolic (congestive) heart failure; J44.0 Chronic obstructive pulmonary disease with (acute) lower respiratory infection; I25.10 Atherosclerotic heart disease of native coronary artery without angina pectoris; I50.9 Heart failure, unspecified; K74.60 Unspecified cirrhosis of liver; E88.01 Alpha-1-antitrypsin deficiency; I11.0 Hypertensive heart disease with heart failure; E11.9 Type 2 diabetes mellitus without complications; M19.90 Unspecified osteoarthritis, unspecified site; K21.9 Gastro-esophageal reflux disease without esophagitis; F32.9 Major depressive disorder, single episode, unspecified; D75.82 Heparin induced thrombocytopenia (HIT); I25.2 Old myocardial infarction; Z99.81 Dependence on supplemental oxygen; Z86.711 Personal history of pulmonary embolism; Z86.14 Personal history of Methicillin resistant Staphylococcus aureus infection; Z87.891 Personal history of nicotine dependence; Z79.899 Other long term (current) drug therapy; Z79.52 Long term (current) use of systemic steroids; Z88.6 Allergy status to analgesic agent; Z88.3 Allergy status to other anti-infective agents; Z88.0 Allergy status to penicillin; Z88.8 Allergy status to other drugs, medicaments and biological substances; Z82.49 Family history of ischemic heart disease and other diseases of the circulatory system
CPT/HCPCS: 36415; 49083; 71045; 71275; 80048; 80053; 81001; 82550; 82553; 83880; 84484; 85025; 85610; 85730; 87040; 87070; 87075; 87205; 89050; 93005; 93010; 99291; J0456; J2920; J2930; J3490; J7030; J7040; J7060; J7512; J7620

== ENCOUNTER 2017-07-18 20:34 | Inpatient (IN) | payer MEDICARE, OTHER ==
[2017-07-19 00:39] LABS: ABSOLUTE BASOPHILS # (AUTO) 0.1 10^3/uL (0.0-0.2); ABSOLUTE EOSINOPHILS # (AUTO) 0.4 10^3/uL (0.0-0.6); ABSOLUTE LYMPHOCYTES (AUTO) 0.9 10^3/uL (0.5-4.7); ABSOLUTE MONOCYTES (AUTO) 0.6 10^3/uL (0.1-1.4); ABSOLUTE NEUT (AUTO) 4.8 10^3/uL (1.7-8.2); BASOPHILS % (AUTO) 0.9 % (0-2); EOSINOPHILS % (AUTO) 5.7 % (0-6); HEMATOCRIT 43.7 % (37.9-51.0); LYMPHOCYTES % (AUTO) 13.3 % (13-45); MEAN CORPUSCULAR HEMOGLOBIN 33.8 pg (27.0-33.4); MEAN CORPUSCULAR HGB CONC 34.2 g/dL (32.0-36.0); MEAN CORPUSCULAR VOLUME 99 fl (80-97); MONOCYTES % (AUTO) 9.2 % (3-13); PLATELET COUNT 130 10^3/uL (150-450); RED BLOOD COUNT 4.42 10^6/uL (4.35-5.55); RED CELL DISTRIBUTION WIDTH 15.2 % (11.5-14.0); SEGMENTED NEUTROPHILS % (AUTO) 70.9 % (42-78); TOTAL CELLS COUNTED % (AUTO) 100 %; WHITE BLOOD COUNT 6.7 10^3/uL (4.0-10.5)
--- NOTE | 2017-07-19 00:45 | RADIOLOGY REPORT (SQ) ---
EXAM DESCRIPTION: CHEST SINGLE VIEW CLINICAL HISTORY: 61 years Male, chest pain, sob COMPARISON: 06/26/17. NUMBER OF VIEWS/TECHNIQUE: 1/AP LIMITATIONS: None. FINDINGS: Moderate emphysematous hyperinflation, small right basilar opacity-effusion, normal cardiac silhouette, and intact bony thorax. IMPRESSION: No significant change.
--- NOTE | 2017-07-19 01:15 | ER Document Report ---
ED General - General Chief Complaint: Chest Pain > 30 Stated Complaint: CHEST PAIN Time Seen by Provider: 07/18/17 23:12 Notes: Patient is a 61-year-old male with a past medical history of alpha-1 antitrypsin deficiency with associated liver cirrhosis and COPD who presents with chest pain, shortness of breath, abdominal fullness and abdominal pain. Patient states that his symptoms started several hours prior to arrival and remained constant since that time. He describes the chest pain as being a pressure-like, stabbing type sensation diffusely over the chest wall. Nothing improves or worsens that pain. He denies any radiation of the pain. He also notes that he has had increasing swelling to his abdomen and feels like he requires a repeat paracentesis. Last therapeutic paracentesis was approximately 1 month ago. He denies any vomiting, diarrhea, or syncope. States he had an appointment with his primary care doctor tomorrow felt symptoms were worsening tonight did not want to wait until the morning to be evaluated. TRAVEL OUTSIDE OF THE [place] IN LAST 30 DAYS: No - Related Data Allergies/Adverse Reactions: Heparin Analogues [Heparin Agents] Allergy (Severe, Verified 02/16/17 09:32) Thrombocytopenia heparinoids [Heparinoids] Allergy (Severe, Verified 02/16/17 09:32) Thrombocytopenia doxycycline Allergy (Intermediate, Verified 02/16/17 09:32) RED FACE AND SWELLING codeine [Codeine] Allergy (Unknown, Verified 02/16/17 09:32) GI upset Penicillins Allergy (Unknown, Verified 02/16/17 09:32) Swelling Past Medical History - General Information source: Patient, Relative - Social History Smoking Status: Never Smoker Frequency of alcohol use: None Drug Abuse: None Lives with: Spouse/Significant other Family History: CAD, Hypertension, Other - CHF Patient has suicidal ideation: No Patient has homicidal ideation: No - Past Medical History Cardiac Medical History: Reports: Hx Congestive Heart Failure, Hx DVT, Hx Heart Attack, Hx Hypertension - LOW, Hx Pulmonary Embolism Denies: Hx Coronary Artery Disease, Hx Hypercholesterolemia Pulmonary Medical History: Reports: Hx COPD, Hx Pneumonia, Hx Respiratory Failure Denies: Hx Asthma, Hx Bronchitis, Hx Sleep Apnea, Hx Tuberculosis Neurological Medical History: Denies: Hx Cerebrovascular Accident, Hx Seizures Endocrine Medical History: Reports: Hx Diabetes Mellitus Type 2. Denies: Hx Diabetes Mellitus Type 1, Hx Hyperthyroidism, Hx Hypothyroidism Renal/ Medical History: Denies: Hx Peritoneal Dialysis GI Medical History: Reports: Hx Cirrhosis - [place] secondary to alpha-1 antitrypsin deficiency., Hx Gastroesophageal Reflux Disease. Denies: Hx Hepatitis Musculoskeltal Medical History: Reports Hx Arthritis Psychiatric Medical History: Reports: Hx Depression Infectious Medical History: Reports: Hx C-Diff, Hx MRSA. Denies: Hx Hepatitis Past Surgical History: Reports: Other - Left chest tube insertion. - Immunizations Hx Diphtheria, Pertussis, Tetanus Vaccination: Yes Hx Pneumococcal Vaccination: 04/05/14 Review of Systems - Review of Systems Notes: Constitutional: Negative for fever. HENT: Negative for sore throat. Eyes: Negative for visual changes. Cardiovascular: Positive for chest pain. Respiratory: Positive for shortness of breath. Gastrointestinal: Positive for abdominal pain Genitourinary: Negative for dysuria. Musculoskeletal: Negative for back pain. Skin: Negative for rash. Neurological: Negative for headaches, weakness or numbness. 10 point ROS negative except as marked above and in HPI. Physical Exam - Vital signs Vitals: Temp Pulse Resp BP Pulse Ox 98.8 F 98 20 96/57 L 97 07/18/17 20:51 07/18/17 20:51 07/18/17 20:51 07/18/17 20:51 07/18/17 20:51 Interpretation: Hypotensive Notes: PHYSICAL EXAMINATION: GENERAL: Appears chronically ill but in no acute distress. HEAD: Atraumatic, normocephalic. EYES: Pupils equal round and reactive to light, extraocular movements intact, sclera anicteric, conjunctiva are normal. ENT: nares patent, oropharynx clear without exudates. Moderately dry mucous membranes. NECK: Normal range of motion, supple without lymphadenopathy LUNGS: Breath sounds clear to auscultation bilaterally and equal. No wheezes rales or rhonchi. HEART: Regular tachycardia without murmurs ABDOMEN: Caput medusae distended abdomen, diffuse generalized tenderness. Positive fluid wave. EXTREMITIES: Normal range of motion, trace edema in the bilateral lower extremities that is equal and symmetric NEUROLOGICAL: No focal neurological deficits. Moves all extremities spontaneously and on command. PSYCH: Normal mood, normal affect. SKIN: Warm, Dry, normal turgor, no rashes or lesions noted. Course - Re-evaluation Re-evalutation: 07/19/17 01:13 Patient presents with 1 day of progressively worsening abdominal pain and difficulty breathing. The patient has very prominent abdominal ascites and has a known history of this. He does not have fever although is noted to be tachycardic although review of prior records shows that he is physically tachycardic. An abdominal diagnostic paracentesis was performed at the bedside with drainage of a clear fluid that does not appear to be overtly infected. CBC unremarkable. CMP is hemolyzed and we are waiting a redraw. Chest x-ray is clear. Patch patient is saturating 95-96% on 2 L by nasal cannula which is his baseline. EKG unchanged from prior. 07/19/17 02:37 Patient's first troponin is normal. He continues to note some chest wall pain as well as shortness of breath. His vital signs continue to show hypotension tachycardia which review of prior vital signs do show is consistent with his baseline. However the patient does have known history of coronary artery disease, has heart score 5 I do believe requires admission for repeat troponin testing and consideration of stress test. I think he would also benefit from therapeutic paracentesis. I discussed this case with Dr. Rebolledo she is examined the patient for admission. - Vital Signs Vital signs: Temp Pulse Resp BP Pulse Ox 98.8 F 98 14 96/67 L 98 07/18/17 20:51 07/18/17 20:51 07/19/17 03:01 07/19/17 03:00 07/19/17 03:01 - Laboratory Result Diagrams: 07/19/17 00:25 07/19/17 01:18 Laboratory results interpreted by me: 07/19/17 07/19/17 00:25 01:18 MCV 99 H MCH 33.8 H RDW 15.2 H Plt Count 130 L Sodium 135.4 L Anion Gap 3 L Est GFR (Non-Af Amer) 59 L Alkaline Phosphatase 164 H Total Protein 5.7 L Albumin 2.4 L - Diagnostic Test Radiology reviewed: Image reviewed, Reports reviewed Radiology results interpreted by me: 07/19/17 02:39 Chest x-ray: No acute infiltrate or pneumothorax - EKG Interpretation by Me Additional EKG results interpreted by me: 07/19/17 02:39 Sinus tachycardia. Rate 101. No ST elevations or depressions. QTC is 431. Discharge - Discharge Clinical Impression: Tachycardia, [id number] deficiency Chest pain Qualifiers: Chest pain type: unspecified Qualified Code(s): R07.9 - Chest pain, unspecified Cirrhosis of liver with ascites Qualifiers: Hepatic cirrhosis type: unspecified hepatic cirrhosis Qualified Code(s): K74.60 - Unspecified cirrhosis of liver Condition: Fair Disposition: ADMITTED OBSERVATION Admitting Provider: Geronimo Thomas Unit Admitted: Telemetry
[2017-07-19 01:59] LABS: FLUID TYPE PERITONEAL
[2017-07-19 02:00] LABS: FLUID APPEARANCE SLIGHTLY HAZY; FLUID COLOR YELLOW; FLUID SOURCE ABDOMEN; FLUID VISCOSITY LIQUID
[2017-07-19 02:11] LABS: ALANINE AMINOTRANSFERASE 39 U/L (21-72); ALBUMIN 2.4 g/dL (3.5-5.0); ALKALINE PHOSPHATASE 164 U/L (38-126); ASPARTATE AMINO TRANSFERASE 38 U/L (17-59); BILIRUBIN,DIRECT 0.4 mg/dL (0.0-0.4); BLOOD UREA NITROGEN 13 mg/dL (7-20); CALCIUM 8.4 mg/dL (8.4-10.2); GLUCOSE 86 mg/dL (75-110); LIPASE 112.7 U/L (23-300); POTASSIUM 4.4 mmol/L (3.6-5.0); TOTAL PROTEIN 5.7 g/dL (6.3-8.2)
[2017-07-19 02:20] LABS: ANION GAP 3 (5-19); CARBON DIOXIDE 27 mmol/L (22-30); CHLORIDE 107 mmol/L (98-107); SODIUM 135.4 mmol/L (137-145)
[2017-07-19] MEDS ORDERED: PROMETHAZINE HCL INJ 25 MG/1 ML VIAL IV PRN (02:56)
[2017-07-19] MEDS ORDERED: ACETAMINOPHEN 325 MG TABLET PO PRN (02:56)
[2017-07-19] MEDS ORDERED: ALBUTEROL SULFATE 0.083% NEB 2.5 MG/3 ML AMPUL NEB PRN (02:56)
[2017-07-19] MEDS ORDERED: ALBUMIN HUMAN 50 ML IV SCH (03:38)
[2017-07-19] MEDS: IPRATROPIUM/ALBUTEROL 0.5-2.5 MG/3 ML AMPUL NEB SCH ×6 (04:11→23:42)
--- NOTE | 2017-07-19 04:24 | PDOC H&P ---
History of Present Illness Admission Date/PCP: TAVO FARLEY MD Patient complains of: Worsening shortness of breath, increase abdominal distention and pedal edema 2 days. History of Present Illness: CHATO BRAXTON is a 61 year old male with history of chronic respiratory failure/COPD (on 2 L home oxygen), cirrhosis (secondary to alpha-1 antitrypsin deficiency), chronic cor pulmonale, PE/DVT (not on anticoagulation at this time ) and type 2 diabetes mellitus (diet controlled) was admitted with above- mentioned complaints. He complained of intermittent chest pressure/discomfort over the last couple of days which was associated with shortness of breath and palpitations but no nausea/vomiting, diaphoresis or any syncope. He said that he had similar presentation on 06/27/2017 where he had a paracentesis done with 3800 ml ascitic fluid drained. He said that he felt lightheaded at times but denied any fever or sick contact. He has a cough occasionally with some yellowish greenish sputum and some chills. The patient also complained of having abdominal distention but denied any diarrhea or constipation. His last bowel movement was yesterday with soft, nonbloody stool. He said that he noticed increased leg swelling lately with 1 pillow orthopnea and PND. His exercise tolerance has been very limited by his shortness of breath. He apparently called his primary physician yesterday who did not have an opening but scheduled him for an appointment today. But since his symptoms seemed to be getting worse, he decided to come to the hospital for further treatment. In the ED, his temperature was 98.8, his heart rate was 98, respiratory rate 20 , blood pressure 96/57 with oxygen saturation of 97% on room air. His WBC was 6.7 with hemoglobin of 15.0. His initial troponin was negative. A diagnostic paracentesis was done in the ED which was unremarkable, cultures pending. Past Medical History Medical History: Other - According to the patient and based on previous records. Cardiac Medical History: Reports: Congestive Heart Failure, DVT, Myocardial Infarction, Hypertension - LOW, Pulmonary Embolism Denies: Coronary Artery Disease, Hyperlipidema Pulmonary Medical History: Reports: Chronic Obstructive Pulmonary Disease (COPD ) - on 2L nasal cannula., Pneumonia, Respiratory Failure Denies: Asthma, Bronchitis, Sleep Apnea, Tuberculosis Neurological Medical History: Denies: Seizures Endocrine Medical History: Reports: Diabetes Mellitus Type 2 - diet controlled. 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 Social History Smoking Status: Former Smoker Cigarettes Packs Per Day: 0 - Used to smoke less than a pack a day for about 15 years. Frequency of Alcohol Use: None Hx Recreational Drug Use: No Drugs: None Hx Prescription Drug Abuse: No - Advance Directive Resuscitation Status: Full Code Family History Family History: CAD, Hypertension, Other - CHF Parental Family History Reviewed: Yes - Father: CAD, mother: Diabetes. Children Family History Reviewed: No Sibling(s) Family History Reviewed.: Yes Medication/Allergy Home Medications: Albuterol Sulfate [Proair HFA] 2 puff IH Q4HP PRN 05/23/17 Alpha Lipoic Acid [Alpha Lipoic Acid 200 mg Tablet] 200 mg PO DAILY 05/23/17 Bumetanide [Bumex 1 mg Tablet] 1 tab PO BIDP PRN 05/23/17 Midodrine HCl 10 mg PO Q8@0600,1100,1500 05/23/17 Potassium Chloride [Klor-Con 10 Meq Tablet.sa] 20 meq PO Q12 05/23/17 Spironolactone [Aldactone] 50 mg PO DAILY 05/23/17 Tamsulosin HCl [Flomax 0.4 mg Cap.sr] 0.4 mg PO DAILY@1800 05/23/17 Theophylline Anhydrous [Partha-Dur 300 mg Tab.sr] 300 mg PO DAILY 05/23/17 Vitamin E 400 unit PO DAILY 05/23/17 Ipratropium/Albuterol Sulfate [Iprat-Albut 0.5-3(2.5) mg/3 ml] 3 ml IH RTQ6HP PRN 06/27/17 Ranitidine HCl [Zantac 150 mg Tablet] 150 mg PO DAILY 06/27/17 Azithromycin [Zithromax 250 mg Tablet] 500 mg PO QPM #5 tablet 06/29/17 Prednisone [Deltasone 20 mg Tablet] 20 mg PO DAILY 5 Days #5 tablet 06/29/17 Allergies/Adverse Reactions: Heparin Analogues [Heparin Agents] Allergy (Severe, Verified 02/16/17 09:32) Thrombocytopenia heparinoids [Heparinoids] Allergy (Severe, Verified 02/16/17 09:32) Thrombocytopenia doxycycline Allergy (Intermediate, Verified 02/16/17 09:32) RED FACE AND SWELLING codeine [Codeine] Allergy (Unknown, Verified 02/16/17 09:32) GI upset Penicillins Allergy (Unknown, Verified 02/16/17 09:32) Swelling Review of Systems ROS unobtainable: Other - Pertinent positives and negatives as detailed in HPI. Physical Exam Vital Signs: Temp Pulse Resp BP Pulse Ox 98.8 F 98 20 102/71 97 07/18/17 20:51 07/18/17 20:51 07/19/17 01:31 07/19/17 01:26 07/19/17 01:26 Intake & Output 07/17/17 07/18/17 07/19/17 06:59 06:59 06:59 Weight 75.9 kg General appearance: PRESENT: mild distress, well-developed, well-nourished Head exam: PRESENT: atraumatic, normocephalic Eye exam: PRESENT: conjunctiva pink, PERRLA. ABSENT: scleral icterus Mouth exam: PRESENT: moist, neck supple Neck exam: PRESENT: full ROM. ABSENT: JVD Respiratory exam: PRESENT: decreased breath sounds. ABSENT: rales, rhonchi, wheezes Cardiovascular exam: PRESENT: RRR, +S1, +S2 Pulses: PRESENT: normal dorsalis pedis pul GI/Abdominal exam: PRESENT: distended, normal bowel sounds, soft, tenderness - diffuse. ABSENT: guarding, rebound Rectal exam: PRESENT: deferred Musculoskeletal exam: PRESENT: other - Able to move all 4 extremities. Neurological exam: PRESENT: alert, altered, awake, oriented to person, oriented to place, oriented to time. ABSENT: motor sensory deficit - grossly. Skin exam: PRESENT: dry, warm. ABSENT: erythema, rash Results Laboratory Results: 07/19/17 00:25 07/19/17 01:18 07/19/17 07/19/17 07/19/17 00:25 00:25 00:45 WBC 6.7 RBC 4.42 Hgb 15.0 Hct 43.7 MCV 99 H MCH 33.8 H MCHC 34.2 RDW 15.2 H Plt Count 130 L Seg Neutrophils % 70.9 Lymphocytes % 13.3 Monocytes % 9.2 Eosinophils % 5.7 Basophils % 0.9 Absolute Neutrophils 4.8 Absolute Lymphocytes 0.9 Absolute Monocytes 0.6 Absolute Eosinophils 0.4 Absolute Basophils 0.1 Sodium Cancelled Potassium Cancelled Chloride Cancelled Carbon Dioxide Cancelled Anion Gap Cancelled BUN Cancelled Creatinine Cancelled Est GFR ( Amer) Cancelled Est GFR (Non-Af Amer) Cancelled Glucose Cancelled Calcium Cancelled Total Bilirubin Cancelled AST Cancelled ALT Cancelled Alkaline Phosphatase Cancelled Total Protein Cancelled Albumin Cancelled Lipase Cancelled Fluid Type PERITONEAL Fluid Source ABDOMEN Fluid Color YELLOW Fluid Appearance SLIGHTLY HAZY Fluid Viscosity LIQUID Fluid WBC 30 Fluid RBC 78 07/19/17 01:18 WBC RBC Hgb Hct MCV MCH MCHC RDW Plt Count Seg Neutrophils % Lymphocytes % Monocytes % Eosinophils % Basophils % Absolute Neutrophils Absolute Lymphocytes Absolute Monocytes Absolute Eosinophils Absolute Basophils Sodium 135.4 L Potassium 4.4 Chloride 107 Carbon Dioxide 27 Anion Gap 3 L BUN 13 Creatinine 1.25 Est GFR ( Amer) > 60 Est GFR (Non-Af Amer) 59 L Glucose 86 Calcium 8.4 Total Bilirubin 1.0 AST 38 ALT 39 Alkaline Phosphatase 164 H Total Protein 5.7 L Albumin 2.4 L Lipase 112.7 Fluid Type Fluid Source Fluid Color Fluid Appearance Fluid Viscosity Fluid WBC Fluid RBC 07/19/17 00:25 Troponin I < 0.012 EKG Comments: EKG, sinus rhythm, ventricular rate 100, axis +85, low voltage no acute changes. Simialr when compared to a previous 12-lead EKG done on 06/30/2017. Impressions: Chest X-Ray 07/18/17 23:44 IMPRESSION: No significant change. Assessment & Plan - Diagnosis (1) Dyspnea Qualifiers: Dyspnea type: unspecified Qualified Code(s): R06.00 - Dyspnea, unspecified Is this a current diagnosis for this admission?: Yes Plan: Secondary to volume overload/ascites most likely, in the setting of very severe COPD/cor pulmonale. The patient had a diagnostic paracentesis in the ED which did not show any sign of infection. We will schedule him for a therapeutic paracentesis this a.m. Of note, his last paracentesis was done on 06/27/2017 with 3800 mL of ascitic fluid drained. We will also continue to cycle cardiac enzymes and check proBNP and an echocardiogram. Unable to start any diuretics at this point since he has blood low blood pressure. Strict I's and O's. If the patient is requiring frequent paracenteses, he may need to be scheduled q. monthly as outpatient. (2) Chronic respiratory failure with hypoxia Is this a current diagnosis for this admission?: Yes Plan: secondary to very severe COPD/alpha-1 antitrypsin deficiency. CXR reviewed. Will continue scheduled duonebs every 4 hours as previously. The patient is not on any steroids at home. (3) Cirrhosis of liver with ascites Qualifiers: Hepatic cirrhosis type: unspecified hepatic cirrhosis Qualified Code(s): K74.60 - Unspecified cirrhosis of liver Is this a current diagnosis for this admission?: Yes Plan: secondary to alpha-1 antitrypsin deficiency. The patient will be scheduled for a therapeutic paracentesis this AM. (4) Chest pain Qualifiers: Chest pain type: unspecified Qualified Code(s): R07.9 - Chest pain, unspecified Is this a current diagnosis for this admission?: Yes Plan: /discomfort, probably secondary to volume overload and increased ascites. We will continue to cycle cardiac enzymes and check an echocardiogram. Of note, the patient had a nuclear stress test on 09/27/2016 which was unremarkable. Will hold off on repeating a stress test at this time. - Time Time Spent: 50 to 70 Minutes Anticipated discharge: Home - Inpatient Certification Based on my medical assessment, after consideration of the patient's comorbidities, presenting symptoms, or acuity I expect that the services needed warrant INPATIENT care.: Yes I certify that my determination is in accordance with my understanding of Medicare's requirements for reasonable and necessary INPATIENT services [42 CFR 412.3e].: Yes
[2017-07-19 04:26] LABS: APPEARANCE,URINE CLEAR; BILIRUBIN,URINE NEGATIVE (NEGATIVE); COLOR,URINE YELLOW; GLUCOSE, URINE NEGATIVE (NEGATIVE); KETONES,URINE NEGATIVE (NEGATIVE); LEUKOCYTE ESTERASE,URINE NEGATIVE (NEGATIVE); NITRITE,URINE NEGATIVE (NEGATIVE); PROTEIN,URINE NEGATIVE (NEGATIVE); URINE SPECIFIC GRAVITY 1.014
[2017-07-19] MEDS: LANSOPRAZOLE 30 MG TAB.RAP.DR PO SCH (06:46)
[2017-07-19 07:01] LABS: INTERNATIONAL RATION (INR) 1.12; PROTHROMBIN TIME 15.2 SEC (11.4-15.4)
[2017-07-19 07:02] LABS: PARTIAL THROMBOPLASTIN TIME 31.2 SEC (23.5-35.8)
--- NOTE | 2017-07-19 07:36 | EKG REPORT ---
SEVERITY:- BORDERLINE ECG - SINUS TACHYCARDIA ATRIAL PREMATURE COMPLEX LOW VOLTAGE WITH RIGHT AXIS DEVIATION : Confirmed by: Tamir Baron MD 19-Jul-2017 07:36:13
[2017-07-19] MEDS ORDERED: (PENDING PHARMACY ID) (Midodrine Hcl [Midodrine Hcl] 10 MG) PO SCH ×2 (12:00→14:00)
[2017-07-19] MEDS ORDERED: (PENDING PHARMACY ID) (Potassium Chloride [Klor-Con M10] 20 MEQ) PO SCH (12:00)
[2017-07-19] MEDS ORDERED: (PENDING PHARMACY ID) (Bumetanide [Bumex 2 Mg Tablet] 2 MG) PO SCH (12:00)
[2017-07-19] MEDS ORDERED: (PENDING PHARMACY ID) (Spironolactone [Aldactone] 50 MG) PO SCH (12:00)
[2017-07-19] MEDS ORDERED: ALBUMIN HUMAN 100 ML IV PRN (12:15)
[2017-07-19] MEDS ORDERED: SPIRONOLACTONE 25 MG TABLET PO ONE (13:15)
[2017-07-19] MEDS ORDERED: BUMETANIDE 1 MG TABLET PO ONE (13:30)
[2017-07-19] MEDS ORDERED: THEOPHYLLINE ANHYDROUS 300 MG TAB.SR.12H PO ONE (14:00)
[2017-07-19] MEDS ORDERED: LIDOCAINE 1% INJ-PF (10 MG/ML) 30 ML SDV ONE (14:48)
--- NOTE | 2017-07-19 15:45 | PDOC PROGRESS REPORT ---
Subjective Progress Note for:: 07/19/17 Subjective:: 61-year-old gentleman with past medical history COPD on 2 L home oxygen Cirrhosis secondary to alpha-1 antitrypsin deficiency Pulmonology PE and DVT in the past not on anticoagulation at present Diet controlled type 2 diabetes Presented to the hospital early this morning with shortness of breath increased abdominal distention and pedal edema for the past 2 days. Diagnostic paracentesis was done in the emergency room and infection was ruled out. He was scheduled for a therapeutic paracentesis this morning. His last paracentesis was June 27, 2017 with 3.8 L of fluid drained. Resume home medications. Continues to have abdominal distension- awaiting therapeutic paracentesis. Reason For Visit: SHORTNESS OF BREATH/ABDOMINAL PAIN Physical Exam Vital Signs: Temp Pulse Resp BP Pulse Ox 98.3 F 103 H 18 98/57 L 97 07/19/17 06:01 07/19/17 06:04 07/19/17 06:01 07/19/17 06:01 07/19/17 06:01 Intake & Output 07/18/17 07/19/17 07/20/17 06:59 06:59 06:59 Output Total 200 Balance -200 Weight 74 kg General appearance: PRESENT: no acute distress Head exam: PRESENT: atraumatic Eye exam: PRESENT: conjunctiva pink, EOMI. ABSENT: scleral icterus Ear exam: PRESENT: normal external ear exam Mouth exam: PRESENT: moist, tongue midline Throat exam: ABSENT: tonsillar exudate Neck exam: ABSENT: tracheal deviation Respiratory exam: PRESENT: clear to auscultation porfirio, symmetrical, unlabored. ABSENT: retraction, wheezes Cardiovascular exam: PRESENT: RRR GI/Abdominal exam: PRESENT: distended, normal bowel sounds, soft Rectal exam: PRESENT: deferred Extremities exam: ABSENT: calf tenderness, pedal edema Neurological exam: PRESENT: alert, awake, oriented to person, oriented to place , oriented to time Psychiatric exam: PRESENT: normal mood Results Laboratory Results: 07/19/17 04:04 Urine Color YELLOW Urine Appearance CLEAR Urine pH 6.0 Ur Specific [place] 1.014 Urine Protein NEGATIVE Urine Glucose (UA) NEGATIVE Urine Ketones NEGATIVE Urine Blood NEGATIVE Urine Nitrite NEGATIVE Ur Leukocyte Esterase NEGATIVE Urine WBC (Auto) 2 Urine RBC (Auto) 1 07/19/17 06:34 Troponin I < 0.012 Impressions: Chest X-Ray 07/18/17 23:44 IMPRESSION: No significant change. Assessment & Plan - Diagnosis (1) Dyspnea Qualifiers: Dyspnea type: unspecified Qualified Code(s): R06.00 - Dyspnea, unspecified Is this a current diagnosis for this admission?: Yes Plan: Multifactorial secondary to COPD at baseline with massively worse ascites. (3) Chronic respiratory failure with hypoxia Is this a current diagnosis for this admission?: Yes (4) Cirrhosis of liver with ascites Qualifiers: Hepatic cirrhosis type: unspecified hepatic cirrhosis Qualified Code(s): K74.60 - Unspecified cirrhosis of liver Is this a current diagnosis for this admission?: Yes Plan: Paracentesis ordered, pending. - Time Time Spent with patient: 25-34 minutes
--- NOTE | 2017-07-19 16:20 | RADIOLOGY REPORT (SQ) ---
EXAM DESCRIPTION: U/S ABD PARACENTESIS COMPLETED DATE/TIME: 07/19/2017 3:16 pm REASON FOR STUDY: therapeutic up to 5L COMPARISON None. LIMITATIONS: None. PROCEDURE: After obtaining informed consent, the patient was brought to the ultrasound suite. The p rocedure was performed with the patient on a gurney. Ultrasound was used to identify a prominent poc ket of ascites in the right lower quadrant. An appropriate access site was selected. The patient wa s prepped and draped in usual sterile fashion. The access site was anesthetized with 3 mL 1% lidoca ine. A Jxsk-S-Ltldccve needle was advanced into the fluid. After aspiration of fluid the needle, th e catheter was advanced off the needle into the fluid. A total of 5,000 mL of clear yellow fluid was removed. The patient tolerated the procedure well left the department in satisfactory condition. IMPRESSION: Successful ultrasound-guided paracentesis COMMENT: Patient medication list reviewed: Yes- Quality ID# [id number]:Eligible professional attests to doc umenting in the medical record they obtained, updated, or reviewed the patient's current medications. Quality ID #[id number]: The patient was prepped and draped using maximum sterile barrier technique including cap, mask, sterile gown, sterile gloves, a large sterile sheet, hand hygiene, and 2% Chlorhexidine fo r cutaneous antisepsis. When ultrasound is used, sterile ultrasound techniques are followed requiring sterile gel and sterile probes. Quality ID #[id number]: Final reports for procedures using fluoroscopy that document radiation exposure tg sherwin, or exposure time and number of fluorographic images (if radiation exposure indices are not avail able) TECHNICAL DOCUMENTATION: JOB ID: [id number] [employer]- All Rights Reserved Reading location - IP/workstation name: [facility]
[2017-07-19] MEDS ORDERED: MIDODRINE HCL 5 MG TABLET PO SCH (18:00)
[2017-07-19] MEDS: BUMETANIDE 1 MG TABLET PO SCH (18:22)
[2017-07-19] MEDS: TAMSULOSIN HCL 0.4 MG CAP.SR.24H PO SCH (18:24)
--- NOTE | 2017-07-19 18:40 | XCELERA REPORT ---
[address] [address] Transthoracic Echocardiogram Report Name: CHATO BRAXTON Age: 61 yrs Gender: Male : 1955 Patient Status: Inpatient Patient Location: [address] [place] [address] Study Date: 07/19/2017 08:07 AM Height: 69 in Weight: 167 lb BSA: 1.9 m2 Procedure: A complete two-dimensional transthoracic echocardiogram was performed (2D, M-mode, spectral and color flow Doppler). The study was technically difficult with many images being suboptimal in quality. The study was technically limited with all images being suboptimal in quality. Reason For Study: chest pain Ordering Physician: FLEX GUERNI Performed By: Ana Lucero Interpretation Summary The study was technically difficult with many images being suboptimal in quality. The study was technically limited with all images being suboptimal in quality. The left ventricular ejection fraction is preserved. There is borderline concentric left ventricular hypertrophy. Doppler measurements suggest pseudonormalized left ventricular relaxation, which is associated with grade II/IV or mild to moderate diastolic dysfunction Regional wall motion abnormalities cannot be excluded due to limited visualization. The left ventricle is grossly normal size. The right ventricular systolic function is normal. Borderline right ventricular enlargement. The left atrial size is normal. The right atrium is normal in size There is a trace amount of mitral regurgitation There is no mitral valve stenosis. No aortic regurgitation is present. There is no aortic valve stenosis There is a mild amount of tricuspid regurgitation There is mild pulmonary hypertension by echo Right ventricular systolic pressure is estimated to be elevated at 30- 40mmHg. There is no pericardial effusion. MMode/2D Measurements & Calculations RVDd: 3.7 cm LVIDd: 2.9 cm FS: 33.8 % Ao root diam: 2.9 cm IVSd: 1.1 cm LVIDs: 1.9 cm EDV(Teich): 32.9 ml LVPWd: 1.1 cm ESV(Teich): 11.7 ml Ao root area: 6.5 cm2 EF(Teich): 64.3 % LA dimension: 2.9 cm LVOT diam: 2.1 cm LVOT area: 3.6 cm2 Doppler Measurements & Calculations MV E max ronnie: MV P1/2t max ronnie: Ao V2 max: LV V1 max P.2 cm/sec 62.2 cm/sec 102.5 cm/sec 2.9 mmHg MV A max ronnie: MV P1/2t: 46.5 msec Ao max PG: LV V1 max: 39.5 cm/sec MVA(P1/2t): 4.7 cm2 4.2 mmHg 84.9 cm/sec MV E/A: 1.5 MV dec slope: PAULA(V,D): 3.0 cm2 391.9 cm/sec2 PA V2 max: TR max ronnie: 88.8 cm/sec 268.8 cm/sec PA max PG: TR max P.9 mmHg 3.2 mmHg Left Ventricle The left ventricle is grossly normal size. There is borderline concentric left ventricular hypertrophy. The left ventricular ejection fraction is preserved. Doppler measurements suggest pseudonormalized left ventricular relaxation, which is associated with grade II/IV or mild to moderate diastolic dysfunction. Regional wall motion abnormalities cannot be excluded due to limited visualization. Right Ventricle Borderline right ventricular enlargement. The right ventricle appears to be hypertrophied. The right ventricular systolic function is normal. Atria The right atrium is normal in size. The left atrial size is normal. Interarterial septum not well visualized and not well dopplered. Cannot comment on ASD/PFO presence. Mitral Valve The mitral valve is not well visualized. There is no mitral valve stenosis. There is a trace amount of mitral regurgitation. Aortic Valve The aortic valve is not well visualized secondary to technical limitations. There is no aortic valve stenosis. No aortic regurgitation is present. Tricuspid Valve The tricuspid valve is not well visualized secondary to technical limitations. There is no tricuspid stenosis. There is a mild amount of tricuspid regurgitation. There is mild pulmonary hypertension by echo. Right ventricular systolic pressure is estimated to be elevated at 30- 40mmHg. Pulmonic Valve The pulmonic valve is not well visualized. Great Vessels The aortic root is not well visualized. The inferior vena cava was not well visualized. Effusions There is no pericardial effusion. : FLEX GUERIN > Stepan Benson
[2017-07-20] MEDS: IPRATROPIUM/ALBUTEROL 0.5-2.5 MG/3 ML AMPUL NEB SCH ×5 (04:07→20:14)
[2017-07-20] MEDS: LANSOPRAZOLE 30 MG TAB.RAP.DR PO SCH (05:22)
[2017-07-20] MEDS: MIDODRINE HCL 5 MG TABLET PO SCH ×3 (05:22→16:09)
[2017-07-20 05:52] LABS: HEMATOCRIT 41.1 % (37.9-51.0); HEMOGLOBIN 14.5 g/dL (13.5-17.0); MEAN CORPUSCULAR HEMOGLOBIN 34.3 pg (27.0-33.4); MEAN CORPUSCULAR HGB CONC 35.4 g/dL (32.0-36.0); MEAN CORPUSCULAR VOLUME 97 fl (80-97); RED BLOOD COUNT 4.24 10^6/uL (4.35-5.55); RED CELL DISTRIBUTION WIDTH 14.5 % (11.5-14.0); WHITE BLOOD COUNT 5.1 10^3/uL (4.0-10.5)
[2017-07-20 06:05] LABS: ALANINE AMINOTRANSFERASE 39 U/L (21-72); ALBUMIN 2.9 g/dL (3.5-5.0); ALKALINE PHOSPHATASE 165 U/L (38-126); ANION GAP 7 (5-19); ASPARTATE AMINO TRANSFERASE 35 U/L (17-59); BILIRUBIN,DIRECT 0.2 mg/dL (0.0-0.4); BLOOD UREA NITROGEN 13 mg/dL (7-20); CALCIUM 8.3 mg/dL (8.4-10.2); CARBON DIOXIDE 32 mmol/L (22-30); CHLORIDE 98 mmol/L (98-107); GLUCOSE 82 mg/dL (75-110); POTASSIUM 3.2 mmol/L (3.6-5.0); SODIUM 136.7 mmol/L (137-145); TOTAL PROTEIN 5.9 g/dL (6.3-8.2)
[2017-07-20 06:13] LABS: PLATELET COUNT 80 10^3/uL (150-450)
[2017-07-20] MEDS ORDERED: POTASSIUM CHLORIDE 10 MEQ TABLET.SA PO ONE (09:00)
[2017-07-20] MEDS: BUMETANIDE 1 MG TABLET PO SCH (09:50)
[2017-07-20] MEDS: THEOPHYLLINE ANHYDROUS 300 MG TAB.SR.12H PO SCH (09:50)
[2017-07-20] MEDS ORDERED: SPIRONOLACTONE 25 MG TABLET PO SCH (10:00)
--- NOTE | 2017-07-20 19:06 | PDOC PROGRESS REPORT ---
Subjective Progress Note for:: 07/20/17 Subjective:: 61-year-old gentleman with past medical history COPD on 2 L home oxygen Cirrhosis secondary to alpha-1 antitrypsin deficiency Pulmonology PE and DVT in the past not on anticoagulation at present Diet controlled type 2 diabetes Presented to the hospital early this morning with shortness of breath increased abdominal distention and pedal edema for the past 2 days. Diagnostic paracentesis was done in the emergency room and infection was ruled out. He was scheduled for a therapeutic paracentesis this morning. His last paracentesis was June 27, 2017 with 3.8 L of fluid drained. He underwent a therapeutic paracentesis yesterday afternoon and 9 L of fluid were removed. His abdominal distention and discomfort have improved considerably. He tells me that he takes 1 mg of Bumex twice a day. Reason For Visit: SHORTNESS OF BREATH/ABDOMINAL PAIN Physical Exam Vital Signs: Temp Pulse Resp BP Pulse Ox 98.4 F 102 H 15 88/60 L 98 07/20/17 15:13 07/20/17 15:31 07/20/17 15:31 07/20/17 15:13 07/20/17 15:13 Intake & Output 07/19/17 07/20/17 07/21/17 06:59 06:59 06:59 Intake Total 1112 752 Output Total 200 2 Balance -200 1110 752 Weight 74 kg 74.5 kg General appearance: PRESENT: no acute distress Head exam: PRESENT: atraumatic, normocephalic Eye exam: PRESENT: conjunctiva pink, EOMI. ABSENT: scleral icterus Ear exam: PRESENT: normal external ear exam Mouth exam: PRESENT: neck supple Neck exam: ABSENT: tracheal deviation Respiratory exam: PRESENT: clear to auscultation porfirio, unlabored. ABSENT: retraction, wheezes Cardiovascular exam: PRESENT: RRR GI/Abdominal exam: PRESENT: normal bowel sounds, soft. ABSENT: tenderness Rectal exam: PRESENT: deferred Results Laboratory Results: 07/20/17 04:27 07/20/17 04:27 07/20/17 07/20/17 07/20/17 04:27 04:27 04:27 WBC 5.1 RBC 4.24 L Hgb 14.5 Hct 41.1 MCV 97 MCH 34.3 H MCHC 35.4 RDW 14.5 H Plt Count 80 L Sodium 136.7 L Potassium 3.2 L Chloride 98 Carbon Dioxide 32 H Anion Gap 7 BUN 13 Creatinine 1.05 Est GFR ( Amer) > 60 Est GFR (Non-Af Amer) > 60 Glucose 82 Calcium 8.3 L Magnesium 1.8 Total Bilirubin 1.0 AST 35 ALT 39 Alkaline Phosphatase 165 H Total Protein 5.9 L Albumin 2.9 L 07/19/17 07/19/17 06:34 12:31 Troponin I < 0.012 < 0.012 Impressions: Chest X-Ray 07/18/17 23:44 IMPRESSION: No significant change. Paracentesis Ultrasound 07/19/17 00:00 IMPRESSION: Successful ultrasound-guided paracentesis Assessment & Plan - Diagnosis (1) Dyspnea Qualifiers: Dyspnea type: unspecified Qualified Code(s): R06.00 - Dyspnea, unspecified Is this a current diagnosis for this admission?: Yes Plan: Secondary to ascites. Improved. (3) Chronic respiratory failure with hypoxia Is this a current diagnosis for this admission?: Yes (4) Cirrhosis of liver with ascites Qualifiers: Hepatic cirrhosis type: unspecified hepatic cirrhosis Qualified Code(s): K74.60 - Unspecified cirrhosis of liver Is this a current diagnosis for this admission?: Yes Plan: s/p therapeutic Paracentesis. Continue outpatient meds (5) Hypokalemia Is this a current diagnosis for this admission?: Yes - Time Time Spent with patient: 25-34 minutes
[2017-07-20] MEDS: TAMSULOSIN HCL 0.4 MG CAP.SR.24H PO SCH (19:27)
[2017-07-20] MEDS ORDERED: NORMAL SALINE 250 ML IV ONE (21:30)
[2017-07-21] MEDS: IPRATROPIUM/ALBUTEROL 0.5-2.5 MG/3 ML AMPUL NEB SCH ×3 (00:07→07:46)
[2017-07-21] MEDS: MIDODRINE HCL 5 MG TABLET PO SCH (05:12)
[2017-07-21] MEDS: LANSOPRAZOLE 30 MG TAB.RAP.DR PO SCH (05:12)
[2017-07-21 05:40] LABS: ANION GAP 5 (5-19); BLOOD UREA NITROGEN 14 mg/dL (7-20); CALCIUM 8.2 mg/dL (8.4-10.2); CARBON DIOXIDE 29 mmol/L (22-30); CHLORIDE 100 mmol/L (98-107); GLUCOSE 73 mg/dL (75-110); POTASSIUM 3.4 mmol/L (3.6-5.0); SODIUM 133.6 mmol/L (137-145)
[2017-07-21] MEDS ORDERED: PROMETHAZINE HCL INJ 25 MG/1 ML VIAL IV PRN (08:00)
[2017-07-21] MEDS ORDERED: POTASSIUM CHLORIDE 10 MEQ TABLET.SA PO ONE (08:00)
[2017-07-21] MEDS ORDERED: MAGNESIUM OXIDE 400 MG TABLET PO ONE (08:00)
[2017-07-21] MEDS: THEOPHYLLINE ANHYDROUS 300 MG TAB.SR.12H PO SCH (09:57)
[2017-07-21 10:19] VITALS: BP 98/62
--- NOTE | 2017-07-21 11:58 | PDOC DISCHARGE SUMMARY ---
General - Admit/Disc Date/PCP Admission Date/Primary Care Provider: 07/19/17 03:07 ALFA GRANGER NP Discharge Date: 07/21/17 - Discharge Diagnosis (1) Dyspnea Is this a current diagnosis for this admission?: Yes (3) Chronic respiratory failure with hypoxia Is this a current diagnosis for this admission?: Yes (4) Cirrhosis of liver with ascites Is this a current diagnosis for this admission?: Yes (5) Hypokalemia Is this a current diagnosis for this admission?: Yes - Additional Information Resuscitation Status: Full Code Prescriptions: Magnesium Oxide [Mag-Ox 400 mg Tablet] 400 mg PO BID 30 Days #60 tablet Home Medications: Bumetanide [Bumex 2 mg Tablet] 1 mg PO BID 07/19/17 Famotidine [Pepcid 20 mg Tablet] 20 mg PO DAILY 07/19/17 Midodrine HCl 10 mg PO TID 07/19/17 Potassium Chloride [Klor-Con M10] 20 meq PO DAILY 07/19/17 Spironolactone [Aldactone] 50 mg PO DAILY 07/19/17 Tamsulosin HCl [Flomax 0.4 mg Cap.sr] 0.4 mg PO DAILY@1800 07/19/17 Theophylline Anhydrous [Partha-Dur 300 mg Tab.sr] 300 mg PO DAILY 07/19/17 Magnesium Oxide [Mag-Ox 400 mg Tablet] 400 mg PO BID 30 Days #60 tablet History of Present Illness History of Present Illness: 61-year-old gentleman with past medical history COPD on 2 L home oxygen Cirrhosis secondary to alpha-1 antitrypsin deficiency Pulmonology PE and DVT in the past not on anticoagulation at present Diet controlled type 2 diabetes Presented to the hospital early this morning with shortness of breath increased abdominal distention and pedal edema for the past 2 days. Diagnostic paracentesis was done in the emergency room and infection was ruled out. He was scheduled for a therapeutic paracentesis this morning. His last paracentesis was June 27, 2017 with 3.8 L of fluid drained. He underwent a therapeutic paracentesis on 07/19/17 and 9 L of fluid were removed. His abdominal distention and discomfort have improved considerably. He is eager and willing to go home. Hospital Course Hospital Course: see above Physical Exam Vital Signs: Temp Pulse Resp BP Pulse Ox 97.7 F 102 H 17 81/49 L 100 07/21/17 07:53 07/21/17 07:53 07/21/17 07:53 07/21/17 07:53 07/21/17 07:53 Intake & Output 07/20/17 07/21/17 07/22/17 06:59 06:59 06:59 Intake Total 1112 1152 Output Total 2 Balance 1110 1152 Weight 74.5 kg 75.2 kg General appearance: PRESENT: no acute distress Mouth exam: PRESENT: moist, neck supple Respiratory exam: PRESENT: clear to auscultation porfirio, unlabored Cardiovascular exam: PRESENT: RRR Results Laboratory Results: 07/20/17 04:27 07/21/17 04:10 07/20/17 07/21/17 04:27 04:10 Sodium 133.6 L Potassium 3.4 L Chloride 100 Carbon Dioxide 29 Anion Gap 5 BUN 14 Creatinine 0.95 Est GFR ( Amer) > 60 Est GFR (Non-Af Amer) > 60 Glucose 73 L Calcium 8.2 L Magnesium 1.8 1.8 07/19/17 07/19/17 06:34 12:31 Troponin I < 0.012 < 0.012 Impressions: Chest X-Ray 07/18/17 23:44 IMPRESSION: No significant change. Paracentesis Ultrasound 07/19/17 00:00 IMPRESSION: Successful ultrasound-guided paracentesis Qualifiers - * PATEINT BEING DISCHARGED WITH ANY OF THE FOLLOWING DIAGNOSIS?: No
[2017-07-21] MEDS ORDERED: TAMSULOSIN HCL 0.4 MG CAP.SR.24H PO SCH (18:00)
[2017-07-21] MEDS ORDERED: MAGNESIUM OXIDE 400 MG TABLET PO SCH (18:00)
--- NOTE | 2017-07-21 18:42 | Physician Advisory Note ---
Physician Advisor ProgressNote .: Pursuant to the plan for [facility], I have reviewed the medical record for this patient. Physician Advisor Statement: Please consider documentin. most likely cause of "SOB" symptom - due to pressure on lungs from severe abd distention from ascites, or ....? 2. "Chronic Diastolic CHF" 3. "Acute abd pain due to ascites" Thanks! CK
[2017-07-22] MEDS ORDERED: LANSOPRAZOLE 30 MG TAB.RAP.DR PO SCH (06:00)
== END 2017-07-21 11:09 | disposition home or self-care (01) | DRG 433 ==
LOC: ER 20:34 → EH 07-19 03:07 → OBSVTOIN 07-19 03:07 → 4N 07-19 06:00
PROVIDERS: ADMIT Internal Medicine Geriatric Medicine; ATTEND Internal Medicine Geriatric Medicine
PROC: 0W9G3ZX Drainage of Peritoneal Cavity, Percutaneous Approach, Diagnostic (ICD-10-PCS; principal; 2017-07-19)
DX: K74.60 Unspecified cirrhosis of liver (principal); R18.8 Other ascites; J96.11 Chronic respiratory failure with hypoxia; E88.01 Alpha-1-antitrypsin deficiency; I50.9 Heart failure, unspecified; I11.0 Hypertensive heart disease with heart failure; Z99.81 Dependence on supplemental oxygen; R07.9 Chest pain, unspecified; R00.0 Tachycardia, unspecified; J44.9 Chronic obstructive pulmonary disease, unspecified; E11.9 Type 2 diabetes mellitus without complications; E87.6 Hypokalemia; I25.2 Old myocardial infarction; Z86.718 Personal history of other venous thrombosis and embolism
CPT/HCPCS: 36415; 49083; 71045; 80048; 80053; 81001; 83690; 83735; 83880; 84484; 85025; 85027; 85610; 85730; 87070; 87075; 87205; 89050; 93005; 93010; 93306; 94640; 99285; J3490; J7050; J7620; P9047

== ENCOUNTER 2017-08-13 21:12 | Inpatient (IN) | payer MEDICARE, OTHER ==
[2017-08-13 22:25] LABS: ABSOLUTE EOSINOPHILS # (AUTO) 0.4 10^3/uL (0.0-0.6); ABSOLUTE LYMPHOCYTES (AUTO) 0.8 10^3/uL (0.5-4.7); ABSOLUTE MONOCYTES (AUTO) 0.6 10^3/uL (0.1-1.4); ABSOLUTE NEUT (AUTO) 5.7 10^3/uL (1.7-8.2); BASOPHILS % (AUTO) 0.5 % (0-2); EOSINOPHILS % (AUTO) 5.1 % (0-6); HEMATOCRIT 43.7 % (37.9-51.0); LYMPHOCYTES % (AUTO) 10.9 % (13-45); MEAN CORPUSCULAR HEMOGLOBIN 33.6 pg (27.0-33.4); MEAN CORPUSCULAR HGB CONC 34.3 g/dL (32.0-36.0); MEAN CORPUSCULAR VOLUME 98 fl (80-97); MONOCYTES % (AUTO) 8.3 % (3-13); PLATELET COUNT 117 10^3/uL (150-450); RED BLOOD COUNT 4.47 10^6/uL (4.35-5.55); RED CELL DISTRIBUTION WIDTH 14.8 % (11.5-14.0); SEGMENTED NEUTROPHILS % (AUTO) 75.2 % (42-78); TOTAL CELLS COUNTED % (AUTO) 100 %; WHITE BLOOD COUNT 7.6 10^3/uL (4.0-10.5)
[2017-08-13 22:40] LABS: ALANINE AMINOTRANSFERASE 36 U/L (21-72); ALBUMIN 2.9 g/dL (3.5-5.0); ALKALINE PHOSPHATASE 209 U/L (38-126); ANION GAP 5 (5-19); ASPARTATE AMINO TRANSFERASE 52 U/L (17-59); BILIRUBIN,DIRECT 0.4 mg/dL (0.0-0.4); BILIRUBIN,TOTAL 0.8 mg/dL (0.2-1.3); BLOOD UREA NITROGEN 18 mg/dL (7-20); CALCIUM 8.6 mg/dL (8.4-10.2); CARBON DIOXIDE 31 mmol/L (22-30); CHLORIDE 103 mmol/L (98-107); CREATINE KINASE 100 U/L (55-170); GLUCOSE 107 mg/dL (75-110); POTASSIUM 4.4 mmol/L (3.6-5.0); SODIUM 139.3 mmol/L (137-145); TOTAL PROTEIN 6.4 g/dL (6.3-8.2)
[2017-08-13 22:53] LABS: CREATINE KINASE MB 1.43 ng/mL (<4.55); NT PRO BNP 99 pg/mL (5-900); TROPONIN I < 0.012 ng/mL
[2017-08-13 22:57] LABS: APPEARANCE,URINE CLEAR; BILIRUBIN,URINE NEGATIVE (NEGATIVE); COLOR,URINE YELLOW; GLUCOSE, URINE NEGATIVE (NEGATIVE); KETONES,URINE NEGATIVE (NEGATIVE); LEUKOCYTE ESTERASE,URINE NEGATIVE (NEGATIVE); NITRITE,URINE NEGATIVE (NEGATIVE); PROTEIN,URINE NEGATIVE (NEGATIVE)
--- NOTE | 2017-08-13 22:58 | ER Document Report ---
ED General - General Chief Complaint: Shortness Of Breath Stated Complaint: BREATHING DIFFICULTY Time Seen by Provider: 08/13/17 22:09 Mode of Arrival: Wheelchair Information source: [facility], [facility] Records Notes: 61-year-old male history of COPD CHF ascites presents with complaints of shortness of breath. Patient was last tapped 2 weeks ago. He admits to nonproductive cough Patient denies any fevers or chills TRAVEL OUTSIDE OF THE [place] IN LAST 30 DAYS: No - HPI Onset: Yesterday Onset/Duration: Persistent Quality of pain: No pain Severity: Moderate Pain Level: Denies Associated symptoms: Nonproductive cough, Shortness of breath Exacerbated by: Walking, Coughing Relieved by: Denies Similar symptoms previously: Yes Recently seen / treated by doctor: Yes - Patient currently on 2 L nasal cannula at baseline - Related Data Allergies/Adverse Reactions: Heparin Analogues [Heparin Agents] Allergy (Severe, Verified 08/13/17 21:13) Thrombocytopenia heparinoids [Heparinoids] Allergy (Severe, Verified 08/13/17 21:13) Thrombocytopenia doxycycline Allergy (Intermediate, Verified 08/13/17 21:13) RED FACE AND SWELLING codeine [Codeine] Allergy (Unknown, Verified 08/13/17 21:13) GI upset Penicillins Allergy (Unknown, Verified 08/13/17 21:13) Swelling Past Medical History - Social History Smoking Status: Former Smoker Cigarette use (# per day): No Chew tobacco use (# tins/day): No Smoking Education Provided: No Family History: CAD, Hypertension, Other - CHF Patient has suicidal ideation: No Patient has homicidal ideation: No - Past Medical History Cardiac Medical History: Reports: Hx Congestive Heart Failure, Hx DVT, Hx Heart Attack, Hx Hypertension - LOW, Hx Pulmonary Embolism Denies: Hx Coronary Artery Disease, Hx Hypercholesterolemia Pulmonary Medical History: Reports: Hx COPD - on 2L nasal cannula., Hx Pneumonia , Hx Respiratory Failure Denies: Hx Asthma, Hx Bronchitis, Hx Sleep Apnea, Hx Tuberculosis Neurological Medical History: Denies: Hx Cerebrovascular Accident, Hx Seizures Endocrine Medical History: Reports: Hx Diabetes Mellitus Type 2 - diet controlled.. 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 Denies: Hx Hepatitis Musculoskeltal Medical History: Reports Hx Arthritis Psychiatric Medical History: Reports: Hx Depression Infectious Medical History: Reports: Hx C-Diff, Hx MRSA. Denies: Hx Hepatitis Past Surgical History: Reports: Other - Left chest tube insertion; lung biopsy. - Immunizations Hx Diphtheria, Pertussis, Tetanus Vaccination: Yes Hx Pneumococcal Vaccination: 04/05/14 Review of Systems - Review of Systems Notes: REVIEW OF SYSTEMS: CONSTITUTIONAL : Denies fever, chills, or sweats. Denies recent illness. EENT: Denies eye, ear, throat, or mouth pain or symptoms. Denies nasal or sinus congestion or discharge. Denies throat, tongue, or mouth swelling or difficulty swallowing. CARDIOVASCULAR: Denies chest pain. Denies palpitations or racing or irregular heart beat. Denies ankle edema. RESPIRATORY: Admits to shortness of breath difficulty breathing GASTROINTESTINAL: Admits to abdominal distention GENITOURINARY: Denies difficulty urinating, painful urination, burning, frequency, blood in urine, or discharge. MUSCULOSKELETAL: Denies back or neck pain or stiffness. Denies joint pain or swelling. SKIN: Denies rash, lesions or sores. HEMATOLOGIC : Denies easy bruising or bleeding. LYMPHATIC: Denies swollen, enlarged glands. NEUROLOGICAL: Denies confusion or altered mental status. Denies passing out or loss of consciousness. Denies dizziness or lightheadedness. Denies headache. Denies weakness or paralysis or loss of use of either side. Denies problems with gait or speech. Denies sensory loss, numbness, or tingling. Denies seizures. PSYCHIATRIC: Denies anxiety or stress. Denies depression, suicidal ideation, or homicidal ideation. ALL OTHER SYSTEMS REVIEWED AND NEGATIVE. Dictation was performed using [employer] recognition software PHYSICAL EXAMINATION: GENERAL: Well-appearing, well-nourished and in no acute distress. HEAD: Atraumatic, normocephalic. EYES: Pupils equal round and reactive to light, extraocular movements intact, sclera anicteric, conjunctiva are normal. ENT: Nares patent, oropharynx clear without exudates. Moist mucous membranes. NECK: Normal range of motion, supple without lymphadenopathy LUNGS: Faint inspiratory expiratory wheezing all throughout HEART: Tachycardic ABDOMEN: Slightly distended no tenderness Musculoskeletal: Normal range of motion, no pitting or edema. No cyanosis. NEUROLOGICAL: Cranial nerves grossly intact. Normal speech, normal gait. Normal sensory, motor exams PSYCH: Normal mood, normal affect. SKIN: Warm, Dry, normal turgor, no rashes or lesions noted. Physical Exam - Vital signs Vitals: Temp Pulse Resp BP Pulse Ox 97.8 F 131 H 20 96/63 L 96 08/13/17 21:40 08/13/17 21:40 08/13/17 21:40 08/13/17 21:40 08/13/17 21:40 Course - Re-evaluation Re-evalutation: 08/13/17 23:40 Patient will be given breathing treatments, his abdomen is slightly distended he may require to have a paracentesis but he appears stable at this time - Vital Signs Vital signs: Temp Pulse Resp BP Pulse Ox 97.8 F 131 H 18 113/80 98 08/13/17 21:40 08/13/17 21:40 08/14/17 00:01 08/14/17 00:00 08/14/17 00:01 - Laboratory Result Diagrams: 08/13/17 22:14 08/13/17 22:14 Laboratory results interpreted by me: 08/13/17 08/13/17 08/13/17 22:14 22:14 22:36 MCV 98 H MCH 33.6 H RDW 14.8 H Plt Count 117 L Lymphocytes % 10.9 L Carbon Dioxide 31 H Alkaline Phosphatase 209 H Albumin 2.9 L Urine Urobilinogen 2.0 H Discharge - Discharge Clinical Impression: COPD exacerbation, Tachycardia CHF (congestive heart failure) Qualifiers: Heart failure type: unspecified Heart failure chronicity: chronic Qualified Code(s): I50.9 - Heart failure, unspecified Condition: Stable Disposition: ADMITTED INPATIENT Admitting Provider: Hospitalist Unit Admitted: Telemetry
--- NOTE | 2017-08-13 23:05 | RADIOLOGY REPORT (SQ) ---
EXAM DESCRIPTION: CHEST SINGLE VIEW COMPLETED DATE/TIME: 08/13/2017 10:41 pm REASON FOR STUDY: dyspnea, ascites COMPARISON: 08/02/2017. NUMBER OF VIEWS: One view. TECHNIQUE: Single frontal radiographic view of the chest acquired. LIMITATIONS: None. FINDINGS: LUNGS AND PLEURA: Generally stable appearance with generalized hyperinflation and scarring . Bullous emphysema. Improved aeration left base, however. No new opacities. MEDIASTINUM AND HILAR STRUCTURES: No masses. Contour normal. HEART AND VASCULAR STRUCTURES: Heart normal in size. Normal vasculature. BONES: No acute findings. HARDWARE: None in the chest. OTHER: No other significant finding. IMPRESSION: COPD. NO ACUTE RADIOGRAPHIC FINDING IN THE CHEST. TECHNICAL DOCUMENTATION: JOB ID: [id number] [employer]- All Rights Reserved Reading location - IP/workstation name: [email or web address]
[2017-08-13] MEDS ORDERED: NORMAL SALINE 1000 ML 1,000 ML IV ONE (23:32)
[2017-08-13] MEDS ORDERED: IPRATROPIUM/ALBUTEROL 0.5-2.5 MG/3 ML AMPUL NEB ONE (23:33)
[2017-08-13] MEDS ORDERED: METHYLPREDNISOLONE INJ 125 MG/2 ML SDV IV ONE (23:33)
[2017-08-14] MEDS ORDERED: ALBUTEROL SULFATE 0.083% NEB 2.5 MG/3 ML AMPUL NEB PRN (00:15)
[2017-08-14] MEDS ORDERED: PROMETHAZINE HCL INJ 25 MG/1 ML VIAL IV PRN (00:15)
[2017-08-14] MEDS ORDERED: MIDODRINE HCL 5 MG TABLET PO ONE (01:00)
[2017-08-14] MEDS ORDERED: THEOPHYLLINE ANHYDROUS 300 MG TAB.SR.12H PO ONE ×2 (01:00→03:19)
[2017-08-14] MEDS ORDERED: IPRATROPIUM/ALBUTEROL 0.5-2.5 MG/3 ML AMPUL NEB SCH (02:00)
[2017-08-14] MEDS: ACETAMINOPHEN 325 MG TABLET PO PRN ×4 (03:41→17:29)
[2017-08-14] MEDS ORDERED: ALBUMIN HUMAN 50 ML IV PRN (04:20)
--- NOTE | 2017-08-14 04:40 | PDOC H&P ---
History of Present Illness Admission Date/PCP: 08/13/17 23:56 Patient complains of: Worsening shortness of breath and not feeling well since morning. History of Present Illness: CHATO BRAXTON is a 61 year old male with history of chronic respiratory failure/COPD (on 2 L home oxygen), cirrhosis with ascites (secondary to alpha- 1 antitrypsin deficiency, post multiple paracenteses), PE/DVT (not on anticoagulation at this time) and type 2 diabetes mellitus (diet controlled) was admitted with above-mentioned complaints. The patient was last hospitalized from 07/19/2017 to 07/21/2017 with similar complaint. He had a paracentesis done with 5 L of ascitic fluid drained. The patient denied any chest pain but complained of having palpitations. He also denied any fever or sick contact but he complained of having some chills and intermittent productive cough. He also denied any abdominal pain but complained of feeling bloated, no constipation or diarrhea. He has been having increased urinary frequency since he is on diuretics. He denied any leg swelling or focal weakness but he feels generally weak. In the ED, his temperature was 98.8, his heart rate was 98, respiratory rate 20 , blood pressure 96/57 with oxygen saturation of 97% on room air. His WBC was 7.6 and his hemoglobin was 15.0 with negative initial troponin. He received 1 DuoNeb treatment x1, 1 L of normal saline and 125 mg IV Solu-Medrol 1. Past Medical History Medical History: Other - According to the patient and based on previous records Cardiac Medical History: Reports: Congestive Heart Failure, DVT, Myocardial Infarction, Hypertension - LOW, Pulmonary Embolism Denies: Coronary Artery Disease, Hyperlipidema Pulmonary Medical History: Reports: Chronic Obstructive Pulmonary Disease (COPD ) - on 2L nasal cannula., Pneumonia, Respiratory Failure Denies: Asthma, Bronchitis, Sleep Apnea, Tuberculosis Neurological Medical History: Denies: Seizures Endocrine Medical History: Reports: Diabetes Mellitus Type 2 - diet controlled. 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 Social History Smoking Status: Former Smoker Cigarettes Packs Per Day: 0 - He quit 30 years ago. Frequency of Alcohol Use: None Hx Recreational Drug Use: No Drugs: None Hx Prescription Drug Abuse: No - Advance Directive Resuscitation Status: Full Code Family History Family History: CAD, Hypertension, Other - CHF Parental Family History Reviewed: Yes Children Family History Reviewed: No Sibling(s) Family History Reviewed.: Yes Medication/Allergy Home Medications: Bumetanide [Bumex 2 mg Tablet] 1 mg PO BID 07/19/17 Famotidine [Pepcid 20 mg Tablet] 20 mg PO DAILY 07/19/17 Midodrine HCl 10 mg PO TID 07/19/17 Potassium Chloride [Klor-Con M10] 20 meq PO DAILY 07/19/17 Spironolactone [Aldactone] 50 mg PO DAILY 07/19/17 Tamsulosin HCl [Flomax 0.4 mg Cap.sr] 0.4 mg PO DAILY@1800 07/19/17 Theophylline Anhydrous [Partha-Dur 300 mg Tab.sr] 300 mg PO DAILY 07/19/17 Magnesium Oxide [Mag-Ox 400 mg Tablet] 400 mg PO BID 30 Days #60 tablet Allergies/Adverse Reactions: Heparin Analogues [Heparin Agents] Allergy (Severe, Verified 08/13/17 21:13) Thrombocytopenia heparinoids [Heparinoids] Allergy (Severe, Verified 08/13/17 21:13) Thrombocytopenia doxycycline Allergy (Intermediate, Verified 08/13/17 21:13) RED FACE AND SWELLING codeine [Codeine] Allergy (Unknown, Verified 08/13/17 21:13) GI upset Penicillins Allergy (Unknown, Verified 08/13/17 21:13) Swelling Review of Systems ROS unobtainable: Other - Pertinent positives and negatives as detailed in the HPI. Physical Exam Vital Signs: Temp Pulse Resp BP Pulse Ox 97.8 F 131 H 20 106/63 98 08/13/17 21:40 08/13/17 21:40 08/13/17 23:09 08/13/17 23:09 08/13/17 23:09 General appearance: PRESENT: no acute distress, well-developed, well-nourished Head exam: PRESENT: atraumatic, normocephalic Eye exam: PRESENT: PERRLA Mouth exam: PRESENT: dry mucosa, neck supple Neck exam: PRESENT: full ROM. ABSENT: JVD Respiratory exam: PRESENT: decreased breath sounds. ABSENT: rales, rhonchi, wheezes Cardiovascular exam: PRESENT: +S1, +S2, tachycardia Pulses: PRESENT: normal dorsalis pedis pul GI/Abdominal exam: PRESENT: distended, normal bowel sounds, soft. ABSENT: rebound, tenderness Rectal exam: PRESENT: deferred Extremities exam: PRESENT: +1 edema Musculoskeletal exam: PRESENT: full ROM Neurological exam: PRESENT: alert, altered, awake, oriented to person, oriented to place. ABSENT: motor sensory deficit Skin exam: PRESENT: dry, warm. ABSENT: erythema, rash Results Laboratory Results: CBC: WBC 7.6, hemoglobin 50.0, hematocrit 43.7, MCV 98, RDW 14.8, platelets 117. CMP: Sodium 139, potassium 4.4, chloride 103, bicarb 31, anion gap 5, BUN 18, creatinine 1.16, glucose 107, calcium 8.6, alk phos 209. Troponin 1 negative. UA: Negative. EKG Comments: Twelve-lead EKG, sinus rhythm, ventricular rate 130, axis +85, poor R-wave propagation and low voltage, no acute changes. Similar when compared to a previous twelve-lead EKG done on 08/02/2017 but ventricular rate was 110. Impressions: Chest X-Ray 08/13/17 22:09 IMPRESSION: COPD. NO ACUTE RADIOGRAPHIC FINDING IN THE CHEST. Assessment & Plan - Diagnosis (1) Sinus tachycardia Is this a current diagnosis for this admission?: Yes Plan: Which could contribute to his shortness of breath, possibly secondary to volume overload. Of note, the patient has history of PE (not on anticoagulation at this time). Chest x-ray reviewed. Will continue to cycle cardiac enzymes and check D-Dimer. Will order CAT scan angiogram of the chest if positive D Dimer. (2) Dyspnea Qualifiers: Dyspnea type: unspecified Qualified Code(s): R06.00 - Dyspnea, unspecified Is this a current diagnosis for this admission?: Yes Plan: Secondary to volume overload/ascites most likely, in the setting of very severe COPD. The patient had a paracentesis on 08/02/2017 with 1200 cc of ascitic fluid drained (no fluid culture done). He had a paracentesis on 07/19/2017 as well with 5 L drained and on 06/27/2017 3800 mL was drained. Strict I's and O's. According to the patient, he was trying to follow-up with his primary care physician so he can be scheduled for repeat paracentesis as outpatient. He was advised to follow-up with GI for further recommendations. (3) Chronic hypoxemic respiratory failure Is this a current diagnosis for this admission?: Yes Plan: secondary to very severe COPD/alpha-1 antitrypsin deficiency. CXR reviewed. Will continue scheduled duonebs every 4 hours as previously. Will NOT start Solu-Medrol since he is not wheezing and steroids will increase his fluid retention. The patient is not on any steroids at home. He is on theophylline, will check level. (4) Cirrhosis of liver with ascites Is this a current diagnosis for this admission?: Yes Plan: secondary to alpha-1 antitrypsin deficiency. The patient will be scheduled for a therapeutic paracentesis this AM. (5) Type 2 diabetes mellitus Qualifiers: Diabetes mellitus fci insulin use: without fci use Is this a current diagnosis for this admission?: No Plan: diet controlled. (6) Hypotension Qualifiers: Hypotension type: unspecified hypotension type Qualified Code(s): I95.9 - Hypotension, unspecified Is this a current diagnosis for this admission?: Yes Plan: by history. He is on Midrodrine which will continue. - Time Time Spent: 50 to 70 Minutes - Inpatient Certification Based on my medical assessment, after consideration of the patient's comorbidities, presenting symptoms, or acuity I expect that the services needed warrant INPATIENT care.: Yes I certify that my determination is in accordance with my understanding of Medicare's requirements for reasonable and necessary INPATIENT services [42 CFR 412.3e].: Yes
[2017-08-14 07:25] LABS: INTERNATIONAL RATION (INR) 1.11; PROTHROMBIN TIME 14.9 SEC (11.4-15.4)
[2017-08-14] MEDS: IPRATROPIUM/ALBUTEROL 0.5-2.5 MG/3 ML AMPUL NEB SCH ×4 (07:41→20:25)
--- NOTE | 2017-08-14 09:31 | EKG REPORT ---
SEVERITY:- BORDERLINE ECG - SINUS TACHYCARDIA LOW VOLTAGE WITH RIGHT AXIS DEVIATION BORDERLINE R WAVE PROGRESSION, ANTERIOR LEADS : Confirmed by: Stepan Benson 14-Aug-2017 09:30:44
[2017-08-14] MEDS ORDERED: FUROSEMIDE INJ/PF 20 MG/2 ML SDV IV ONE (11:30)
[2017-08-14] MEDS: MIDODRINE HCL 5 MG TABLET PO SCH ×3 (11:31→17:09)
[2017-08-14] MEDS: THEOPHYLLINE ANHYDROUS 300 MG TAB.SR.12H PO SCH (11:32)
[2017-08-14] MEDS ORDERED: METOPROLOL TARTRATE PF/INJ 5 MG/5 ML SDV IV ONE ×3 (13:19→15:45)
[2017-08-14] MEDS ORDERED: PROPRANOLOL HCL 20 MG TABLET PO ONE (14:00)
[2017-08-14] MEDS ORDERED: METOPROLOL TARTRATE PF/INJ 5 MG/5 ML SDV IV PRN (16:23)
[2017-08-14] MEDS: BUMETANIDE 1 MG TABLET PO SCH (17:08)
[2017-08-14] MEDS: TAMSULOSIN HCL 0.4 MG CAP.SR.24H PO SCH (17:09)
[2017-08-14] MEDS: MAGNESIUM OXIDE 400 MG TABLET PO SCH (17:09)
--- NOTE | 2017-08-14 17:53 | Progress Note ---
Provider Note Provider Note: Agree with paint and table edger plan of care. Diuresed today with Lasix as patient appeared slightly volume overloaded, as evidence by pedal edema and worsening ascites. Plan for thoracentesis tomorrow. Patient remains tachycardic. Ddimer only 2.09. Low suspicion for PE. The patient is not dehydrated, in pain, or febrile, nor is he bleeding. Started on BID propranolol, reason being twofold: variceal bleeding prophylaxis and heart rate control
[2017-08-14] MEDS: PROPRANOLOL HCL 20 MG TABLET PO SCH (21:49)
[2017-08-14] MEDS ORDERED: PROPRANOLOL HCL 20 MG TABLET PO SCH ×2 (22:00)
[2017-08-15] MEDS: ACETAMINOPHEN 325 MG TABLET PO PRN ×2 (01:20→05:56)
[2017-08-15] MEDS: IPRATROPIUM/ALBUTEROL 0.5-2.5 MG/3 ML AMPUL NEB SCH ×5 (04:16→15:33)
[2017-08-15 05:43] LABS: MEAN CORPUSCULAR HEMOGLOBIN 33.4 pg (27.0-33.4); MEAN CORPUSCULAR HGB CONC 34.3 g/dL (32.0-36.0); MEAN CORPUSCULAR VOLUME 98 fl (80-97); PLATELET COUNT 109 10^3/uL (150-450); RED CELL DISTRIBUTION WIDTH 14.7 % (11.5-14.0); WHITE BLOOD COUNT 12.1 10^3/uL (4.0-10.5)
[2017-08-15 05:46] LABS: INTERNATIONAL RATION (INR) 1.16; PROTHROMBIN TIME 15.4 SEC (11.4-15.4)
[2017-08-15] MEDS: MIDODRINE HCL 5 MG TABLET PO SCH ×3 (05:54→15:38)
[2017-08-15 06:08] LABS: ANION GAP 7 (5-19); BLOOD UREA NITROGEN 21 mg/dL (7-20); CALCIUM 8.6 mg/dL (8.4-10.2); CARBON DIOXIDE 32 mmol/L (22-30); CHLORIDE 100 mmol/L (98-107); GLUCOSE 76 mg/dL (75-110); PHOSPHORUS 3.4 mg/dL (2.5-4.5); POTASSIUM 3.9 mmol/L (3.6-5.0); SODIUM 139.1 mmol/L (137-145)
[2017-08-15] MEDS ORDERED: ALBUMIN HUMAN 100 ML IV PRN (08:05)
[2017-08-15] MEDS ORDERED: ACETAMINOPHEN 325 MG TABLET PO PRN (08:30)
[2017-08-15] MEDS ORDERED: FAMOTIDINE 20 MG TABLET PO SCH (10:00)
[2017-08-15] MEDS: PROPRANOLOL HCL 20 MG TABLET PO SCH (10:14)
[2017-08-15] MEDS: THEOPHYLLINE ANHYDROUS 300 MG TAB.SR.12H PO SCH (10:18)
[2017-08-15] MEDS: MAGNESIUM OXIDE 400 MG TABLET PO SCH ×2 (10:18→18:09)
--- NOTE | 2017-08-15 11:43 | RADIOLOGY REPORT (SQ) ---
EXAM DESCRIPTION: U/S ABDOMEN LIMITED W/O DOP COMPLETED DATE/TIME: 08/15/2017 10:11 am REASON FOR STUDY: therapeutic since worsening shortness of breath COMPARISON: None. TECHNIQUE: Limited Static and real time overton scale imaging performed of the 4 abdominal quadrants an d the midline. LIMITATIONS: None. FINDINGS: ASCITES: None identified. OTHER: No other significant finding. IMPRESSION: NO EVIDENCE FOR ASCITES. TECHNICAL DOCUMENTATION: JOB ID: [id number] [employer] All Rights Reserved Reading location - IP/workstation name: [email or web address]
[2017-08-15] MEDS ORDERED: PROPRANOLOL HCL 20 MG TABLET PO SCH (12:21)
[2017-08-15] MEDS ORDERED: PROMETHAZINE HCL INJ 25 MG/1 ML VIAL IV PRN (13:00)
[2017-08-15] MEDS: BUMETANIDE 1 MG TABLET PO SCH ×2 (13:15→18:09)
[2017-08-15] MEDS: TAMSULOSIN HCL 0.4 MG CAP.SR.24H PO SCH (18:09)
[2017-08-15 18:34] VITALS: BP 91/52
--- NOTE | 2017-08-30 08:59 | PDOC DISCHARGE SUMMARY ---
General - Admit/Disc Date/PCP Admission Date/Primary Care Provider: 08/13/17 23:56 Discharge Date: 08/15/17 - Discharge Diagnosis (1) Sinus tachycardia Is this a current diagnosis for this admission?: Yes Summary: Could contribute to his shortness of breath, possibly secondary to volume overload. Of note, the patient has history of PE (not on anticoagulation at this time). His Ddimer was only 2.09, low suspicion for PE After reviewing his home medications, it was discovered that the patient does not currently take propranolol for varices PPX, which is odd given the degree of his liver failure. Initiated while inpatient, which also helped better control his heart rate. Continued post discharge (2) Dyspnea Is this a current diagnosis for this admission?: Yes Summary: Secondary to volume overload/ascites most likely, in the setting of very severe COPD. The patient had a paracentesis on 08/02/2017 with 1200 cc of ascitic fluid drained (no fluid culture done). He had a paracentesis on 07/19/2017 as well with 5 L drained and on 06/27/2017 3800 mL was drained. Strict I's and O's. The patient was diuresed upon admission while waiting for paracentesis. He appeared volume overloaded, as evidence by pedal edema and worsening ascites. This seemed to significantly help with his respiratory status. The patient uses home O2 and was able to stay on his home regimen (3) Cirrhosis of liver Is this a current diagnosis for this admission?: Yes Summary: Secondary to alpha-1 antitrypsin deficiency. The patient presented stating he felt like his abdomen was 'tight' and he needed paracentesis. He is well known to hospitalist service, frequent previous admissions for similar presenting symptoms At the time of his paracentesis, the procedure was stopped because he did not have ascites to drain. The patient was discharged within hours to his PMD and encouraged to follow up with a key filer to begin outpatient paracentesis (4) Acute and chronic respiratory failure Is this a current diagnosis for this admission?: Yes Summary: Secondary to COPD and volume overload as evidence by pedal edema CXR benign The patient wears home O2, did not have increased O2 requirements. Diuresed with lasix (5) Diabetes mellitus type II, controlled Is this a current diagnosis for this admission?: Yes Summary: Diet controlled (6) Hypotension Is this a current diagnosis for this admission?: Yes Summary: Patient endorsed a history of HYPOtension Continued on home dose midodrine - Additional Information Resuscitation Status: Full Code Discharge Diet: Cardiac Discharge Activity: Activity As Tolerated Prescriptions: Propranolol HCl [Inderal 20 mg Tablet] 20 mg PO Q12 #60 tablet Home Medications: Bumetanide [Bumex 1 mg Tablet] 1 mg PO BID 08/14/17 Famotidine [Pepcid 20 mg Tablet] 20 mg PO DAILY 08/14/17 Magnesium Oxide [Mag-Ox 400 mg Tablet] 400 mg PO BID 08/14/17 Midodrine HCl 10 mg PO TID 08/14/17 Potassium Chloride [Klor-Con 10 Meq Tablet.sa] 10 meq PO TID 08/14/17 Spironolactone [Aldactone] 50 mg PO DAILY 08/14/17 Tamsulosin HCl [Flomax 0.4 mg Cap.sr] 0.4 mg PO QPM 08/14/17 Theophylline Anhydrous [Partha-Dur 300 mg Tab.sr] 300 mg PO DAILY 08/14/17 Midodrine HCl [Proamatine 5 mg Tablet] 10 mg PO TID@0600,1100,1500 tablet 08/15 Propranolol HCl [Inderal 20 mg Tablet] 20 mg PO Q12 #60 tablet 08/15/17 Theophylline Anhydrous [Partha-Dur 300 mg Tab.sr] 300 mg PO DAILY tab.sr.12h History of Present Illness History of Present Illness: CHATO BRAXTON is a 61 year old male with history of chronic respiratory failure/COPD (on 2 L home oxygen), cirrhosis with ascites (secondary to alpha- 1 antitrypsin deficiency, post multiple paracenteses), PE/DVT (not on anticoagulation at this time) and type 2 diabetes mellitus (diet controlled) was admitted with above-mentioned complaints. The patient was last hospitalized from 07/19/2017 to 07/21/2017 with similar complaint. He had a paracentesis done with 5 L of ascitic fluid drained. The patient denied any chest pain but complained of having palpitations. He also denied any fever or sick contact but he complained of having some chills and intermittent productive cough. He also denied any abdominal pain but complained of feeling bloated, no constipation or diarrhea. He has been having increased urinary frequency since he is on diuretics. He denied any leg swelling or focal weakness but he feels generally weak. In the ED, his temperature was 98.8, his heart rate was 98, respiratory rate 20 , blood pressure 96/57 with oxygen saturation of 97% on room air. His WBC was 7.6 and his hemoglobin was 15.0 with negative initial troponin. He received 1 DuoNeb treatment x1, 1 L of normal saline and 125 mg IV Solu-Medrol 1. Hospital Course Hospital Course: The patient presented with SOB and feeling like his abdomen was 'tight.' This patient is well known to the hospitalist service, he frequently is admitted for a build up of ascites and requires paracentesis. During this hospitalization, however, his SOB and abdominal tightness was due to volume overload. A CT guided paracentesis was attempted but the procedure was stopped because the patient did not have ascites to drain. He was diuresed with lasix, after which he endorsed feeling much better. The patient was noted to be tachycardic throughout his hospitalization ([id number]). He was not infected or febrile. Low suspicion for PE. An element of discomfort likely contributed to his tachycardia , given the patient's abdominal tightness and SOB. Even after diuresis, his tachycardia persisted. The patient was placed on propranolol and continued post discharge, mostly for heart rate control but also for esophageal varices prevention in a liver failure patient. Physical Exam Vital Signs: Temp Pulse Resp BP Pulse Ox 97.6 F 72 16 91/52 L 96 08/15/17 17:05 08/15/17 17:05 08/15/17 17:05 08/15/17 18:00 08/15/17 17:05 Results Laboratory Results: 08/15/17 04:46 08/15/17 04:46 08/14/17 08/14/17 08/14/17 04:13 10:16 16:05 Troponin I < 0.012 < 0.012 < 0.012 Impressions: Chest X-Ray 08/13/17 22:09 IMPRESSION: COPD. NO ACUTE RADIOGRAPHIC FINDING IN THE CHEST. Abdomen Ultrasound 08/15/17 00:00 IMPRESSION: NO EVIDENCE FOR ASCITES. Status: Imported from PACS Qualifiers - * PATIENT BEING DISCHARGED WITH ANY OF THE FOLLOWING DIAGNOSIS: No Plan Discharge Plan: Discharge home with close follow-up to primary care doctor and key filer to set up routine outpatient paracentesis
== END 2017-08-15 18:34 | disposition home or self-care (01) | DRG 190 ==
LOC: ER 21:12 → EH 23:56 → 5 08-14 02:35
PROVIDERS: ADMIT Internal Medicine Geriatric Medicine; ATTEND Internal Medicine Geriatric Medicine
PROC: 3E0F73Z Introduction of Anti-inflammatory into Respiratory Tract, Via Natural or Artificial Opening (ICD-10-PCS; 2017-08-14)
PROC: 0WJF3ZZ Inspection of Abdominal Wall, Percutaneous Approach (ICD-10-PCS; principal; 2017-08-15)
DX: J44.1 Chronic obstructive pulmonary disease with (acute) exacerbation (principal); J96.21 Acute and chronic respiratory failure with hypoxia; R18.8 Other ascites; E88.01 Alpha-1-antitrypsin deficiency; K74.60 Unspecified cirrhosis of liver; E11.9 Type 2 diabetes mellitus without complications; I11.0 Hypertensive heart disease with heart failure; I50.9 Heart failure, unspecified; K21.9 Gastro-esophageal reflux disease without esophagitis; M19.90 Unspecified osteoarthritis, unspecified site; F32.9 Major depressive disorder, single episode, unspecified; D75.82 Heparin induced thrombocytopenia (HIT); R00.0 Tachycardia, unspecified; I95.9 Hypotension, unspecified; I25.2 Old myocardial infarction; Z99.81 Dependence on supplemental oxygen; Z79.899 Other long term (current) drug therapy; Z86.711 Personal history of pulmonary embolism; Z86.718 Personal history of other venous thrombosis and embolism; Z86.14 Personal history of Methicillin resistant Staphylococcus aureus infection; Z87.891 Personal history of nicotine dependence; Z88.6 Allergy status to analgesic agent; Z88.3 Allergy status to other anti-infective agents; Z88.0 Allergy status to penicillin; Z88.8 Allergy status to other drugs, medicaments and biological substances; Z82.61 Family history of arthritis; Z82.49 Family history of ischemic heart disease and other diseases of the circulatory system
CPT/HCPCS: 36415; 71045; 76705; 80048; 80053; 80198; 81001; 82550; 82553; 83735; 83880; 84100; 84484; 85025; 85027; 85379; 85610; 87040; 93005; 93010; 99285; J1940; J2930; J3490; J7620; P9047

== ENCOUNTER 2017-09-05 17:09 | Emergency (ER) | payer MEDICARE, OTHER ==
[2017-09-05] MEDS ORDERED: IPRATROPIUM/ALBUTEROL 0.5-2.5 MG/3 ML AMPUL NEB ONE (17:48)
--- NOTE | 2017-09-05 17:48 | ER Document Report ---
ED Medical Screen (RME) - General Chief Complaint: Chest Tightness Stated Complaint: SHORTNESS OF BREATH Time Seen by Provider: 09/05/17 17:39 Notes: RAPID MEDICAL EVALUATION DISCLOSURE I have seen this patient as part of a Rapid Medical Evaluation and, if applicable, placed any initially appropriate orders. The patient will be seen and fully evaluated, including a full history and physical exam, by a provider ( in Main ED or Fast Track) when a room becomes available. 61-year-old male PMH liver cirrhosis COPD here with complaints of chest pain and tightness that started earlier today and has been persistent all day long. He is unable to tell me if it is worse with exertion because he does not walk much. His shortness of breath is worse with exertion. He is normally short of breath at baseline but states he has been much worse here recently. He denies any fevers or chills but does have significant lightheadedness with standing. States his blood pressures are normally low, and sometimes even as low as today (systolic 89). He feels like he may be fluid overloaded causing his shortness of breath. EXAM No wheezes on pulmonary auscultation Regular rate and rhythm TRAVEL OUTSIDE OF THE [place] IN LAST 30 DAYS: No - Related Data Allergies/Adverse Reactions: Heparin Analogues [Heparin Agents] Allergy (Severe, Verified 08/13/17 21:13) Thrombocytopenia heparinoids [Heparinoids] Allergy (Severe, Verified 08/13/17 21:13) Thrombocytopenia doxycycline Allergy (Intermediate, Verified 08/13/17 21:13) RED FACE AND SWELLING codeine [Codeine] Allergy (Unknown, Verified 08/13/17 21:13) GI upset Penicillins Allergy (Unknown, Verified 08/13/17 21:13) Swelling Past Medical History - Social History Chew tobacco use (# tins/day): No Frequency of alcohol use: None Drug Abuse: None Family history: CAD - Past Medical History Cardiac Medical History: Reports: Hx Congestive Heart Failure, Hx DVT, Hx Heart Attack, Hx Hypertension - LOW, Hx Pulmonary Embolism Denies: Hx Coronary Artery Disease, Hx Hypercholesterolemia Pulmonary Medical History: Reports: Hx COPD - on 2L nasal cannula., Hx Pneumonia , Hx Respiratory Failure Denies: Hx Asthma, Hx Bronchitis, Hx Sleep Apnea, Hx Tuberculosis Neurological Medical History: Denies: Hx Cerebrovascular Accident, Hx Seizures Endocrine Medical History: Reports: Hx Diabetes Mellitus Type 2 - diet controlled.. 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 Denies: Hx Hepatitis Musculoskeltal Medical History: Reports Hx Arthritis Psychiatric Medical History: Reports: Hx Depression Infectious Medical History: Reports: Hx C-Diff, Hx MRSA. Denies: Hx Hepatitis Past Surgical History: Reports: Other - Left chest tube insertion; lung biopsy. - Immunizations Hx Diphtheria, Pertussis, Tetanus Vaccination: Yes History of Influenza Vaccine for 01/2017 - 06/2017 Season: Yes Influenza Administration Date for 01/2017 - 06/2017 Season: 01/23/17 Physical Exam - Vital signs Vitals: Pulse Pulse Ox 76 90 L 09/05/17 17:21 09/05/17 17:21 Course - Vital Signs Vital signs: Temp Pulse Resp BP Pulse Ox 98.6 F 70 20 89/50 L 93 09/05/17 17:23 09/05/17 17:23 09/05/17 17:23 09/05/17 17:23 09/05/17 17:23
[2017-09-05 18:38] LABS: ABSOLUTE EOSINOPHILS # (AUTO) 0.4 10^3/uL (0.0-0.6); ABSOLUTE LYMPHOCYTES (AUTO) 1.1 10^3/uL (0.5-4.7); ABSOLUTE MONOCYTES (AUTO) 0.6 10^3/uL (0.1-1.4); ABSOLUTE NEUT (AUTO) 4.8 10^3/uL (1.7-8.2); BASOPHILS % (AUTO) 0.3 % (0-2); EOSINOPHILS % (AUTO) 6.1 % (0-6); HEMATOCRIT 45.3 % (37.9-51.0); HEMOGLOBIN 15.5 g/dL (13.5-17.0); LYMPHOCYTES % (AUTO) 15.9 % (13-45); MEAN CORPUSCULAR HEMOGLOBIN 33.5 pg (27.0-33.4); MEAN CORPUSCULAR HGB CONC 34.2 g/dL (32.0-36.0); MEAN CORPUSCULAR VOLUME 98 fl (80-97); MONOCYTES % (AUTO) 8.9 % (3-13); RED BLOOD COUNT 4.62 10^6/uL (4.35-5.55); RED CELL DISTRIBUTION WIDTH 14.8 % (11.5-14.0); SEGMENTED NEUTROPHILS % (AUTO) 68.8 % (42-78); TOTAL CELLS COUNTED % (AUTO) 100 %; WHITE BLOOD COUNT 6.9 10^3/uL (4.0-10.5)
[2017-09-05 18:44] LABS: ALANINE AMINOTRANSFERASE 39 U/L (21-72); ALKALINE PHOSPHATASE 195 U/L (38-126); ANION GAP 10 (5-19); ASPARTATE AMINO TRANSFERASE 35 U/L (17-59); BILIRUBIN,DIRECT 0.3 mg/dL (0.0-0.4); BILIRUBIN,TOTAL 0.7 mg/dL (0.2-1.3); BLOOD UREA NITROGEN 21 mg/dL (7-20); CALCIUM 8.5 mg/dL (8.4-10.2); CARBON DIOXIDE 28 mmol/L (22-30); CHLORIDE 103 mmol/L (98-107); GLUCOSE 92 mg/dL (75-110); SODIUM 141.4 mmol/L (137-145)
--- NOTE | 2017-09-05 18:52 | RADIOLOGY REPORT (SQ) ---
EXAM DESCRIPTION: CHEST SINGLE VIEW COMPLETED DATE/TIME: 09/05/2017 6:40 pm REASON FOR STUDY: sob COMPARISON: 09/24/2016 and 05/05/2016 EXAM PARAMETERS: NUMBER OF VIEWS: One view. TECHNIQUE: Single frontal radiographic view of the chest acquired. RADIATION DOSE: NA LIMITATIONS: None. FINDINGS: LUNGS AND PLEURA: Stable chronic lung changes. No new consolidation. Overexpansion with chronic streaky changes through the mid lung medellin again noted. MEDIASTINUM AND HILAR STRUCTURES: Stable. HEART AND VASCULAR STRUCTURES: Heart is not enlarged. No overt CHF. BONES: No acute findings. HARDWARE: None in the chest. OTHER: No other significant finding. IMPRESSION: COPD. No developing pulmonary consolidation. TECHNICAL DOCUMENTATION: JOB ID: [id number] [employer]- All Rights Reserved Reading location - IP/workstation name: [email or web address]
[2017-09-05 18:56] LABS: NT PRO BNP 254 pg/mL (5-900)
[2017-09-05 18:57] LABS: TROPONIN I < 0.012 ng/mL
[2017-09-05 18:59] LABS: PLATELET COUNT 91 10^3/uL (150-450)
[2017-09-05 19:51] VITALS: BP 99/59
--- NOTE | 2017-09-05 19:53 | ER Document Report ---
ED General - General Chief Complaint: Chest Tightness Stated Complaint: SHORTNESS OF BREATH Time Seen by Provider: 09/05/17 17:39 Notes: Patient is a 61-year-old male well-known to me with a past medical history of COPD, liver cirrhosis, chronic hypertension, alpha-1 antitrypsin deficiency who presents with complaints of shortness of breath. The patient reports that he has chronic shortness of breath at baseline and does require 2 L of nasal cannula at all times. However he reports for the past 24-36 hours he has had progressive worsening of his baseline shortness of breath. He states that while normally he can walk from his bedroom to the kitchen counter generally without having to stop to breathe he is not able to do so currently. He denies any chest pain, cough, sputum production, increased wheezing from baseline or increased abdominal swelling. No fever or constitutional symptoms. He has not seen his primary care doctor regarding today's concerns. Nothing seems to improve or worsen his symptoms. He notes a history of similar symptoms many times in the past with COPD exacerbations. TRAVEL OUTSIDE OF THE [place] IN LAST 30 DAYS: No - Related Data Allergies/Adverse Reactions: Heparin Analogues [Heparin Agents] Allergy (Severe, Verified 08/13/17 21:13) Thrombocytopenia heparinoids [Heparinoids] Allergy (Severe, Verified 08/13/17 21:13) Thrombocytopenia doxycycline Allergy (Intermediate, Verified 08/13/17 21:13) RED FACE AND SWELLING codeine [Codeine] Allergy (Unknown, Verified 08/13/17 21:13) GI upset Penicillins Allergy (Unknown, Verified 08/13/17 21:13) Swelling Past Medical History - General Information source: Patient - Social History Smoking Status: Former Smoker Chew tobacco use (# tins/day): No Frequency of alcohol use: None Drug Abuse: None Lives with: Spouse/Significant other Family History: CAD, Hypertension, Other - CHF Patient has suicidal ideation: No Patient has homicidal ideation: No - Past Medical History Cardiac Medical History: Reports: Hx Congestive Heart Failure, Hx DVT, Hx Heart Attack, Hx Hypertension - LOW, Hx Pulmonary Embolism Denies: Hx Coronary Artery Disease, Hx Hypercholesterolemia Pulmonary Medical History: Reports: Hx COPD - on 2L nasal cannula., Hx Pneumonia , Hx Respiratory Failure Denies: Hx Asthma, Hx Bronchitis, Hx Sleep Apnea, Hx Tuberculosis Neurological Medical History: Denies: Hx Cerebrovascular Accident, Hx Seizures Endocrine Medical History: Reports: Hx Diabetes Mellitus Type 2 - diet controlled.. 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 Denies: Hx Hepatitis Musculoskeltal Medical History: Reports Hx Arthritis Psychiatric Medical History: Reports: Hx Depression Infectious Medical History: Reports: Hx C-Diff, Hx MRSA. Denies: Hx Hepatitis Past Surgical History: Reports: Other - Left chest tube insertion; lung biopsy. - Immunizations Hx Diphtheria, Pertussis, Tetanus Vaccination: Yes Hx Pneumococcal Vaccination: 04/05/14 Review of Systems - Review of Systems Notes: Constitutional: Negative for fever. HENT: Negative for sore throat. Eyes: Negative for visual changes. Cardiovascular: Negative for chest pain. Respiratory: Positive for shortness of breath. Gastrointestinal: Negative for abdominal pain, vomiting or diarrhea. Genitourinary: Negative for dysuria. Musculoskeletal: Negative for back pain. Skin: Negative for rash. Neurological: Negative for headaches, weakness or numbness. 10 point ROS negative except as marked above and in HPI. Physical Exam - Vital signs Vitals: Pulse Pulse Ox 76 90 L 09/05/17 17:21 09/05/17 17:21 Interpretation: Hypotensive Notes: PHYSICAL EXAMINATION: GENERAL: Appears older than stated age, chronically ill but in no acute distress HEAD: Atraumatic, normocephalic. EYES: Pupils equal round and reactive to light, extraocular movements intact, sclera anicteric, conjunctiva are normal. ENT: nares patent, oropharynx clear without exudates. Mild dry mucous membranes. NECK: Normal range of motion, supple without lymphadenopathy LUNGS: Globally diminished air movement in all lung medellin. No tachypnea or respiratory distress. No wheezing or rales HEART: Regular rate and rhythm without murmurs ABDOMEN: Soft, no significant protuberance or fluid wave, nontender, normoactive bowel sounds. No guarding, no rebound. No masses appreciated. EXTREMITIES: Normal range of motion, no pitting or edema. No cyanosis. NEUROLOGICAL: No focal neurological deficits. Moves all extremities spontaneously and on command. PSYCH: Normal mood, normal affect. SKIN: Warm, Dry, normal turgor, no rashes or lesions noted. Course - Re-evaluation Re-evalutation: 09/05/17 19:50 Patient presents with 24 hours of worse shortness of breath at baseline. Examination today however is extremely benign. The patient, whom I have examined on multiple previous occasions actually appears better than I have ever seen him look before. His chest x-ray shows COPD but no acute infiltrate. BMP is normal, troponin is normal, EKG without ischemic changes. He is saturating 100% on his normal 2 L by nasal cannula breathing 16-17 times per minute. He is not tachycardic. He is borderline hypotensive which is his norm. He has no significant abdominal ascites to warrant a paracentesis as this has triggered episodes of shortness of breath in the past when it has become so pronounced that it compresses on his diaphragm. I do not see any indication for hospitalization at this time point and nor do I see any obvious life-threatening etiology of his shortness of breath today. The patient does report at baseline he is able to walk only 20-30 feet with stop to breathe and notes that it is simply somewhat worse today than normal. At this time will discharge with return precautions and follow-up recommendations. Verbal discharge instructions given a the bedside and opportunity for questions given. Medication warnings reviewed. Patient is in agreement with this plan and has verbalized understanding of return precautions and the need for primary care follow-up in the next 24-72 hours. - Vital Signs Vital signs: Temp Pulse Resp BP Pulse Ox 98.6 F 72 18 100/61 100 09/05/17 17:23 09/05/17 19:28 09/05/17 19:27 09/05/17 19:28 09/05/17 19:26 - Laboratory Result Diagrams: 09/05/17 18:00 09/05/17 18:00 Laboratory results interpreted by me: 09/05/17 09/05/17 18:00 18:00 MCV 98 H MCH 33.5 H RDW 14.8 H Plt Count 91 L Eosinophils % 6.1 H BUN 21 H Alkaline Phosphatase 195 H Total Protein 6.0 L Albumin 3.0 L - Diagnostic Test Radiology reviewed: Image reviewed, Reports reviewed Radiology results interpreted by me: 09/05/17 19:51 Chest x-ray: COPD but no acute infiltrate - EKG Interpretation by Me Additional EKG results interpreted by me: 09/05/17 19:55 Sinus rhythm. Rate 75. No ST elevations or depressions. QTC 434. Discharge - Discharge Clinical Impression: Shortness of breath COPD (chronic obstructive pulmonary disease) Qualifiers: COPD type: unspecified COPD Qualified Code(s): J44.9 - Chronic obstructive pulmonary disease, unspecified Condition: Stable Disposition: HOME, SELF-CARE Additional Instructions: Your labs, chest x-ray M are stable today and are actually better than your previous examinations. Please follow-up with your primary doctor within the next 1-2 days. Please return to the emergency room immediately if you experience any concerning symptoms including high fevers, severe headache, chest pain, worsening difficulty breathing, abdominal pain, slurred speech, numbness or weakness in your arms or legs, or any other symptom that concerns you.
--- NOTE | 2017-09-05 20:11 | EKG REPORT ---
SEVERITY:- OTHERWISE NORMAL ECG - SINUS RHYTHM BORDERLINE RIGHT AXIS DEVIATION : Confirmed by: Stepan Benson 05-Sep-2017 20:09:38
== END 2017-09-05 20:00 | disposition home or self-care (01) ==
LOC: ER 17:09
DX: J44.9 Chronic obstructive pulmonary disease, unspecified (principal); R07.89 Other chest pain; E88.01 Alpha-1-antitrypsin deficiency; R06.02 Shortness of breath; I25.2 Old myocardial infarction; Z87.891 Personal history of nicotine dependence; Z86.711 Personal history of pulmonary embolism; Z88.8 Allergy status to other drugs, medicaments and biological substances; Z88.1 Allergy status to other antibiotic agents; Z88.5 Allergy status to narcotic agent; Z88.0 Allergy status to penicillin; Z87.01 Personal history of pneumonia (recurrent)
CPT/HCPCS: 93005; 94640; 99285; 36415; 87040; 85025; 80076; 80048; 84484; 83605; 83880; 71045; 93010; A9270; J7620

== ENCOUNTER 2017-09-22 18:29 | Emergency (ER) | payer MEDICARE, OTHER ==
[2017-09-22] MEDS ORDERED: IPRATROPIUM/ALBUTEROL 0.5-2.5 MG/3 ML AMPUL NEB ONE ×2 (19:03→21:07)
[2017-09-22] MEDS ORDERED: NORMAL SALINE 1000 ML 500 ML IV PRN (19:04)
--- NOTE | 2017-09-22 19:05 | ER Document Report ---
ED Medical Screen (RME) - General Chief Complaint: Cough Stated Complaint: COUGH Time Seen by Provider: 09/22/17 19:03 Notes: 62 years old male with a history of severe COPD, presents today with 2 day history of cough coughing up yellow sputum. And shortness of breath and minimal exertion. Denies any fever chills. Denies any chest pain. Denies any left arm numbness tingling sensation. Denies any other constitutional symptoms I have greeted and performed a rapid initial assessment of this patient. A comprehensive ED assessment and evaluation of the patient, analysis of test results and completion of the medical decision making process will be conducted by additional ED providers. PHYSICAL EXAMINATION: GENERAL: Well-appearing, well-nourished and in mild to moderate acute distress. HEAD: Atraumatic, normocephalic. EYES: Pupils equal round extraocular movements intact, conjunctiva are normal. ENT: Nares patent NECK: Normal range of motion LUNGS: On oxygen by nasal cannula, bilaterally diffuse decreased breath sounds. Musculoskeletal: Normal range of motion NEUROLOGICAL: Normal speech, normal gait. PSYCH: Normal mood, normal affect. SKIN: Warm, Dry, normal turgor, no rashes or lesions noted. TRAVEL OUTSIDE OF THE [place] IN LAST 30 DAYS: No - Related Data Allergies/Adverse Reactions: Heparin Analogues [Heparin Agents] Allergy (Severe, Verified 09/22/17 18:31) Thrombocytopenia heparinoids [Heparinoids] Allergy (Severe, Verified 09/22/17 18:31) Thrombocytopenia doxycycline Allergy (Intermediate, Verified 09/22/17 18:31) RED FACE AND SWELLING codeine [Codeine] Allergy (Unknown, Verified 09/22/17 18:31) GI upset Penicillins Allergy (Unknown, Verified 09/22/17 18:31) Swelling Past Medical History - Social History Family history: CAD - Past Medical History Cardiac Medical History: Reports: Hx Congestive Heart Failure, Hx DVT, Hx Heart Attack, Hx Hypertension - LOW, Hx Pulmonary Embolism Denies: Hx Coronary Artery Disease, Hx Hypercholesterolemia Pulmonary Medical History: Reports: Hx COPD - on 2L nasal cannula., Hx Pneumonia , Hx Respiratory Failure Denies: Hx Asthma, Hx Bronchitis, Hx Sleep Apnea, Hx Tuberculosis Neurological Medical History: Denies: Hx Cerebrovascular Accident, Hx Seizures Endocrine Medical History: Reports: Hx Diabetes Mellitus Type 2 - diet controlled.. 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 Denies: Hx Hepatitis Musculoskeltal Medical History: Reports Hx Arthritis Psychiatric Medical History: Reports: Hx Depression Infectious Medical History: Reports: Hx C-Diff, Hx MRSA. Denies: Hx Hepatitis Past Surgical History: Reports: Other - Left chest tube insertion; lung biopsy. - Immunizations Hx Diphtheria, Pertussis, Tetanus Vaccination: Yes History of Influenza Vaccine for 01/2017 - 06/2017 Season: Yes Influenza Administration Date for 01/2017 - 06/2017 Season: 01/23/17
--- NOTE | 2017-09-22 19:42 | RADIOLOGY REPORT (SQ) ---
EXAM DESCRIPTION: CHEST SINGLE VIEW COMPLETED DATE/TIME: 09/22/2017 7:13 pm REASON FOR STUDY: Cough/COPD COMPARISON: 09/05/2017 EXAM PARAMETERS: NUMBER OF VIEWS: One view. TECHNIQUE: Single frontal radiographic view of the chest acquired. RADIATION DOSE: NA LIMITATIONS: None. FINDINGS: LUNGS AND PLEURA: Developing patchy opacities in the left mid lung. Otherwise no signific ant changes. MEDIASTINUM AND HILAR STRUCTURES: Stable. HEART AND VASCULAR STRUCTURES: Stable. BONES: No acute findings. HARDWARE: None in the chest. OTHER: No other significant finding. IMPRESSION: Developing patchy opacities in the left mid lung. TECHNICAL DOCUMENTATION: JOB ID: [id number] 2010 [employer]- All Rights Reserved Reading location - IP/workstation name: [email or web address]
[2017-09-22 19:52] LABS: ABSOLUTE EOSINOPHILS # (AUTO) 0.2 10^3/uL (0.0-0.6); ABSOLUTE LYMPHOCYTES (AUTO) 1.2 10^3/uL (0.5-4.7); ABSOLUTE MONOCYTES (AUTO) 0.9 10^3/uL (0.1-1.4); ABSOLUTE NEUT (AUTO) 6.7 10^3/uL (1.7-8.2); BASOPHILS % (AUTO) 0.4 % (0-2); EOSINOPHILS % (AUTO) 2.6 % (0-6); HEMATOCRIT 48.4 % (37.9-51.0); HEMOGLOBIN 16.8 g/dL (13.5-17.0); LYMPHOCYTES % (AUTO) 12.9 % (13-45); MEAN CORPUSCULAR HEMOGLOBIN 33.5 pg (27.0-33.4); MEAN CORPUSCULAR HGB CONC 34.6 g/dL (32.0-36.0); MEAN CORPUSCULAR VOLUME 97 fl (80-97); MONOCYTES % (AUTO) 9.6 % (3-13); PLATELET COUNT 100 10^3/uL (150-450); RED CELL DISTRIBUTION WIDTH 14.7 % (11.5-14.0); SEGMENTED NEUTROPHILS % (AUTO) 74.5 % (42-78); TOTAL CELLS COUNTED % (AUTO) 100 %
[2017-09-22 20:12] LABS: ALANINE AMINOTRANSFERASE 33 U/L (21-72); ALBUMIN 3.4 g/dL (3.5-5.0); ALKALINE PHOSPHATASE 170 U/L (38-126); ANION GAP 7 (5-19); ASPARTATE AMINO TRANSFERASE 47 U/L (17-59); BILIRUBIN,DIRECT 0.3 mg/dL (0.0-0.4); BILIRUBIN,TOTAL 1.4 mg/dL (0.2-1.3); BLOOD UREA NITROGEN 19 mg/dL (7-20); CARBON DIOXIDE 30 mmol/L (22-30); CHLORIDE 102 mmol/L (98-107); GLUCOSE 90 mg/dL (75-110); POTASSIUM 4.3 mmol/L (3.6-5.0); SODIUM 139.1 mmol/L (137-145); TOTAL PROTEIN 7.3 g/dL (6.3-8.2)
[2017-09-22 20:24] LABS: CREATINE KINASE MB 1.43 ng/mL (<4.55); NT PRO BNP 296 pg/mL (5-900)
[2017-09-22 20:25] LABS: TROPONIN I < 0.012 ng/mL
[2017-09-22] MEDS ORDERED: ONDANSETRON 4 MG TAB.RAPDIS PO ONE (21:16)
[2017-09-22] MEDS ORDERED: ALBUTEROL SULFATE 0.083% NEB 2.5 MG/3 ML AMPUL NEB ONE ×2 (21:48→22:45)
[2017-09-22] MEDS ORDERED: LEVOFLOXACIN 750 MG/D5W RTU 750 MG/150 ML RTUPB IV ONE (21:50)
--- NOTE | 2017-09-22 22:22 | ER Document Report ---
ED General - General Chief Complaint: Cough Stated Complaint: COUGH Time Seen by Provider: 09/22/17 19:03 Notes: Patient is a 62-year-old male presents emergency department the chief complaint of cough. Patient states that he has a history of COPD, on trypsin deficiency, cirrhosis. Patient states that his shortness of breath is consistent with his baseline but now admits to productive cough for the past 24 hours. Denies any fevers or chills. Denies any nausea or vomiting. Patient states that he is able to ambulate per his baseline. Patient is on 2 L nasal cannula at home TRAVEL OUTSIDE OF THE [place] IN LAST 30 DAYS: No - Related Data Allergies/Adverse Reactions: Heparin Analogues [Heparin Agents] Allergy (Severe, Verified 09/22/17 18:31) Thrombocytopenia heparinoids [Heparinoids] Allergy (Severe, Verified 09/22/17 18:31) Thrombocytopenia doxycycline Allergy (Intermediate, Verified 09/22/17 18:31) RED FACE AND SWELLING codeine [Codeine] Allergy (Unknown, Verified 09/22/17 18:31) GI upset Penicillins Allergy (Unknown, Verified 09/22/17 18:31) Swelling Past Medical History - Social History Smoking Status: Former Smoker Family History: CAD, Hypertension, Other - CHF Patient has suicidal ideation: No Patient has homicidal ideation: No - Past Medical History Cardiac Medical History: Reports: Hx Congestive Heart Failure, Hx DVT, Hx Heart Attack, Hx Hypertension - LOW, Hx Pulmonary Embolism Denies: Hx Coronary Artery Disease, Hx Hypercholesterolemia Pulmonary Medical History: Reports: Hx COPD - on 2L nasal cannula., Hx Pneumonia , Hx Respiratory Failure Denies: Hx Asthma, Hx Bronchitis, Hx Sleep Apnea, Hx Tuberculosis Neurological Medical History: Denies: Hx Cerebrovascular Accident, Hx Seizures Endocrine Medical History: Reports: Hx Diabetes Mellitus Type 2 - diet controlled.. 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 Denies: Hx Hepatitis Musculoskeltal Medical History: Reports Hx Arthritis Psychiatric Medical History: Reports: Hx Depression Infectious Medical History: Reports: Hx C-Diff, Hx MRSA. Denies: Hx Hepatitis Past Surgical History: Reports: Other - Left chest tube insertion; lung biopsy. - Immunizations Hx Diphtheria, Pertussis, Tetanus Vaccination: Yes Hx Pneumococcal Vaccination: 04/05/14 Review of Systems - Review of Systems Constitutional: No symptoms reported Cardiovascular: No symptoms reported Respiratory: See HPI Gastrointestinal: No symptoms reported Musculoskeletal: No symptoms reported Neurological/Psychological: No symptoms reported -: Yes All other systems reviewed and negative Physical Exam - Vital signs Vitals: Resp 23 H 09/22/17 20:58 - Notes Notes: PHYSICAL EXAM GENERAL: Alert, interacts well. HEAD: Normocephalic, atraumatic. EYES: Pupils equal, round, and reactive to light. Extraocular movements intact. ENT: Oral mucosa moist, tongue midline. NECK: Full range of motion. Supple. Trachea midline. LUNGS: Diffuse wheezes noted throughout with crackles at the left lower lobe without rales, or rhonchi. No respiratory distress. HEART: Regular rate and rhythm. No murmurs, gallops, or rubs. ABDOMEN: Soft, nondistended, nontender. No guarding, rebound, or rigidity.. Bowel sounds present in all 4 quadrants. NEUROLOGICAL: Alert and oriented x4. Normal speech. PSYCH: Normal affect, normal mood. SKIN: Warm, dry, normal turgor. No rashes or lesions noted. Course - Re-evaluation Re-evalutation: Patient is a 62-year-old male is hemodynamic stable, no acute distress and afebrile. Patient satting well on his home 2 L. Patient improved after multiple breathing treatments. X-ray shows evidence of left lower lobe developing pneumonia. Labs in triage without any evidence of ketosis, anemia, electrolyte abnormalities or renal insufficiency. Patient agreeable with p.o. antibiotics and discharge home. Given strict return precautions and stable for discharge - Vital Signs Vital signs: Temp Pulse Resp BP Pulse Ox 98.7 F 19 89/63 L 95 09/23/17 00:18 09/23/17 00:00 09/23/17 00:00 09/23/17 00:00 - Laboratory Result Diagrams: 09/22/17 19:30 09/22/17 19:30 Laboratory results interpreted by me: 09/22/17 09/22/17 19:30 19:30 MCH 33.5 H RDW 14.7 H Plt Count 100 L Lymphocytes % 12.9 L Creatinine 1.31 H Est GFR (Non-Af Amer) 55 L Total Bilirubin 1.4 H Alkaline Phosphatase 170 H Albumin 3.4 L - Diagnostic Test Radiology reviewed: Image reviewed, Reports reviewed Discharge - Discharge Clinical Impression: Pneumonia Qualifiers: Pneumonia type: due to unspecified organism Laterality: left Condition: Good Disposition: HOME, SELF-CARE Additional Instructions: PNEUMONIA: Your examination indicates that you have pneumonia. This is an infection of the lung tissue, usually caused by bacteria or a virus. Symptoms include cough, fever, shaking chills, chest pain, shortness of breath, and coughing up bloody sputum. Treatment for bacterial pneumonia includes rest, antibiotics for 10 to 14 days, increasing your clear liquid intake, a cool mist humidifier at your bedside, and fever medication. Often, a repeat chest X-ray is performed in a few weeks--even if you feel better--to ascertain whether the infection has completely resolved and no underlying lung problem is present. You should call the physician if you develop persistent vomiting, high fever that does not respond to fever medication, increasing shortness of breath , confusion, or lethargy. Also, failure to improve within two to three days is an indication for re-examination. ANTIBIOTIC INJECTION: You have been given an antibiotic injection. Sometimes the injection must be combined with antibiotic pills. For some infections, the shot provides all the antibiotic that's needed. Common side effects of antibiotics include nausea, intestinal cramping, or diarrhea. These are very unusual following a shot. Women may develop vaginal yeast infections, and babies can get yeast ( thrush) in the mouth following the use of antibiotics. Contact your physician if you develop significant side effects from this medication. Allergy to this antibiotic can result in hives, wheezing, faintness, or itching. If symptoms of allergy occur, call the doctor at once. ANTIBIOTIC THERAPY: You have been given an antibiotic prescription. It's important that you take all the medication, unless instructed otherwise by your physician. Failure to complete the entire course can result in relapse of your condition. Common side effects of antibiotics include nausea, intestinal cramping, or diarrhea. Women may develop vaginal yeast infections, and babies can get yeast (thrush) in the mouth following the use of antibiotics. Contact your physician if you develop significant side effects from this medication. Allergy to this antibiotic can result in hives, wheezing, faintness, or itching. If symptoms of allergy occur, stop the medication and call the doctor. LEVOFLOXACIN: You have been given an antibacterial agent, levofloxacin (Levaquin). This medicine is not related to the penicillins, sulfas, cephalosporins, or tetracyclines. It is often given to patients who are allergic to these drugs. It has been chosen for you either because other drugs are not appropriate, or because of the nature of your problem. Levaquin should not be taken with antacids, as these can decrease its effectiveness. It can be taken without regard to meals. LEVAQUIN SHOULD NOT BE TAKEN BY CHILDREN, NURSING WOMEN, OR WOMEN. Although Levaquin is usually well-tolerated, common side effects can include nausea and diarrhea. Contact your doctor if you experience any unusual symptoms while on this medication, such as joint pain or swelling, shortness of breath, wheezing, faintness, or hives. USE OF ACETAMINOPHEN (Tylenol): Acetaminophen may be taken for pain relief or fever control. It's much safer than aspirin, offering a wider range of "safe" dosages. It is safe during . Some brand names are Tylenol, Panadol, Datril, Anacin 3, Tempra, and Liquiprin. Acetaminophen can be repeated every four hours. The following are maximum recommended dosages: WEIGHT Dose Drops Elixir Chewable( 80mg) (LBS.) drprs=droppers tsp=teaspoon 6 40 mg 0.4 ml (1/2) 6-11 80 mg 0.8 ml (full) tsp 1 tab 12-16 120 mg 1 1/2 drprs 3/4 tsp 1 1/2 tabs 17-23 160 mg 2 drprs 1 tsp 2 tabs 24-30 240 mg 3 drprs 1 1/2 tsp 3 tabs 30-35 320 mg 2 tsp 4 tabs 36-41 360 mg 2 1/4 tsp 4 1/2 tabs 42-47 400 mg 2 1/2 tsp 5 tabs 48-53 480 mg 3 tsp 6 tabs 54-59 520 mg 3 1/4 tsp 6 1/2 tabs 60-64 560 mg 3 1/2 tsp 7 tabs 65-70 600 mg 3 3/4 tsp 7 1/2 tabs 71-76 640 mg 4 tsp 8 tabs 77-82 720 mg 4 1/2 tsp 9 tabs 83-88 800 mg 5 tsp 10 tabs >89 pounds or adults 650 mg to 900 mg Acetaminophen can be repeated every four hours. Maximum dose not to exceed 4000 mg a day. These maximum recommended dosages are slightly higher than the dosages written on the product container, but these dosages are very safe and below the toxic dosage for acetaminophen. FOLLOW-UP CARE: If you have been referred to a physician for follow-up care, call the physician s office for an appointment as you were instructed or within the next two days. If you experience worsening or a significant change in your symptoms, notify the physician immediately or return to the Emergency Department at any time for re-evaluation. Prescriptions: Levofloxacin 750 mg PO DAILY #5 tablet Referrals: ALFA GRANGER NP [COMMUNITY BASED STAFF] - Follow up in 3-5 days
[2017-09-23 00:27] VITALS: BP 89/63
--- NOTE | 2017-09-23 08:42 | EKG REPORT ---
SEVERITY:- BORDERLINE ECG - SINUS RHYTHM LOW VOLTAGE WITH RIGHT AXIS DEVIATION : Confirmed by: Stepan Benson 23-Sep-2017 08:42:01
== END 2017-09-23 00:20 | disposition home or self-care (01) ==
LOC: ER 18:29
DX: J44.0 Chronic obstructive pulmonary disease with (acute) lower respiratory infection (principal); J18.9 Pneumonia, unspecified organism; R05 Cough; R06.02 Shortness of breath; I10 Essential (primary) hypertension; E88.01 Alpha-1-antitrypsin deficiency; Z88.8 Allergy status to other drugs, medicaments and biological substances; Z88.1 Allergy status to other antibiotic agents; Z88.5 Allergy status to narcotic agent; Z88.0 Allergy status to penicillin; Z87.891 Personal history of nicotine dependence; Z86.711 Personal history of pulmonary embolism; Z86.718 Personal history of other venous thrombosis and embolism; Z99.81 Dependence on supplemental oxygen
CPT/HCPCS: 93005; 94640 ×2; 99284; 96365; 96366; 36415; 87040; 82553; 85025; 80053; 84484; 83880; 71045; 93010; A9270 ×3; J1956; J7620; S0119

== ENCOUNTER 2017-09-24 15:52 | Inpatient (IN) | payer MEDICARE, OTHER ==
[2017-09-24] MEDS ORDERED: NORMAL SALINE 1000 ML 1,000 ML IV ONE ×3 (16:17→18:11)
[2017-09-24] MEDS ORDERED: IPRATROPIUM/ALBUTEROL 0.5-2.5 MG/3 ML AMPUL NEB ONE (16:18)
[2017-09-24] MEDS ORDERED: CEFTRIAXONE INJ 1000 MG VIAL IV ONE (16:18)
--- NOTE | 2017-09-24 16:20 | ER Document Report ---
ED General - General Chief Complaint: Breathing Difficulty Stated Complaint: DIFFICULTY BREATHING Time Seen by Provider: 09/24/17 16:17 Mode of Arrival: Ambulatory Information source: Patient, [facility] Records Notes: 62-year-old male history of COPD who was diagnosed with pneumonia started on Levaquin recently presents with complaints of shortness of breath difficulty breathing patient is normally on 2 L nasal cannula at home, is on 4 L here satting 91% TRAVEL OUTSIDE OF THE [place] IN LAST 30 DAYS: No - HPI Onset: Last week Onset/Duration: Persistent, Worse Quality of pain: No pain Severity: Moderate Pain Level: Denies Associated symptoms: Productive cough, Shortness of breath Exacerbated by: Walking Relieved by: Denies Similar symptoms previously: Yes Recently seen / treated by doctor: Yes - Related Data Allergies/Adverse Reactions: Heparin Analogues [Heparin Agents] Allergy (Severe, Verified 09/24/17 15:53) Thrombocytopenia heparinoids [Heparinoids] Allergy (Severe, Verified 09/24/17 15:53) Thrombocytopenia doxycycline Allergy (Intermediate, Verified 09/24/17 15:53) RED FACE AND SWELLING codeine [Codeine] Allergy (Unknown, Verified 09/24/17 15:53) GI upset Penicillins Allergy (Unknown, Verified 09/24/17 15:53) Swelling Past Medical History - Social History Smoking Status: Current Every Day Smoker Cigarette use (# per day): Yes Chew tobacco use (# tins/day): No Smoking Education Provided: Yes - Patient counselled regarding cessation for 4 minutes Family History: CAD, Hypertension, Other - CHF - Past Medical History Cardiac Medical History: Reports: Hx Congestive Heart Failure, Hx DVT, Hx Heart Attack, Hx Hypertension - LOW, Hx Pulmonary Embolism Denies: Hx Coronary Artery Disease, Hx Hypercholesterolemia Pulmonary Medical History: Reports: Hx COPD - on 2L nasal cannula., Hx Pneumonia , Hx Respiratory Failure Denies: Hx Asthma, Hx Bronchitis, Hx Sleep Apnea, Hx Tuberculosis Neurological Medical History: Denies: Hx Cerebrovascular Accident, Hx Seizures Endocrine Medical History: Reports: Hx Diabetes Mellitus Type 2 - diet controlled.. 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 Denies: Hx Hepatitis Musculoskeltal Medical History: Reports Hx Arthritis Psychiatric Medical History: Reports: Hx Depression Infectious Medical History: Reports: Hx C-Diff, Hx MRSA. Denies: Hx Hepatitis Past Surgical History: Reports: Other - Left chest tube insertion; lung biopsy. - Immunizations Hx Diphtheria, Pertussis, Tetanus Vaccination: Yes Hx Pneumococcal Vaccination: 04/05/14 Review of Systems - Review of Systems Notes: REVIEW OF SYSTEMS: CONSTITUTIONAL : Denies fever, chills, or sweats. Denies recent illness. EENT: Denies eye, ear, throat, or mouth pain or symptoms. Denies nasal or sinus congestion or discharge. Denies throat, tongue, or mouth swelling or difficulty swallowing. CARDIOVASCULAR: Denies chest pain. Denies palpitations or racing or irregular heart beat. Denies ankle edema. RESPIRATORY: Admits shortness of breath difficulty breathing GASTROINTESTINAL: Denies abdominal pain or distention. Denies nausea, vomiting , or diarrhea. Denies blood in vomitus, stools, or per rectum. Denies black, tarry stools. Denies constipation. GENITOURINARY: Denies difficulty urinating, painful urination, burning, frequency, blood in urine, or discharge. MUSCULOSKELETAL: Denies back or neck pain or stiffness. Denies joint pain or swelling. SKIN: Denies rash, lesions or sores. HEMATOLOGIC : Denies easy bruising or bleeding. LYMPHATIC: Denies swollen, enlarged glands. NEUROLOGICAL: Denies confusion or altered mental status. Denies passing out or loss of consciousness. Denies dizziness or lightheadedness. Denies headache. Denies weakness or paralysis or loss of use of either side. Denies problems with gait or speech. Denies sensory loss, numbness, or tingling. Denies seizures. PSYCHIATRIC: Denies anxiety or stress. Denies depression, suicidal ideation, or homicidal ideation. ALL OTHER SYSTEMS REVIEWED AND NEGATIVE. Dictation was performed using [employer] voice recognition software PHYSICAL EXAMINATION: GENERAL: Thin frail-appearing male in moderate respiratory distress HEAD: Atraumatic, normocephalic. EYES: Pupils equal round and reactive to light, extraocular movements intact, sclera anicteric, conjunctiva are normal. ENT: Nares patent, oropharynx clear without exudates. Moist mucous membranes. NECK: Normal range of motion, supple without lymphadenopathy LUNGS: Decreased breath sounds all throughout with coarse rhonchi HEART: Regular rate and rhythm without murmurs ABDOMEN: Soft, nontender, nondistended abdomen. No guarding, no rebound. No masses appreciated. Musculoskeletal: Normal range of motion, no pitting or edema. No cyanosis. NEUROLOGICAL: Cranial nerves grossly intact. Normal speech, normal gait. Normal sensory, motor exams PSYCH: Normal mood, normal affect. SKIN: Warm, Dry, normal turgor, no rashes or lesions noted. Physical Exam - Vital signs Vitals: Temp Pulse Resp BP Pulse Ox 98.6 F 72 24 H 86/52 L 91 L 09/24/17 16:03 09/24/17 16:03 09/24/17 16:03 09/24/17 16:03 09/24/17 16:03 Course - Re-evaluation Re-evalutation: 09/24/17 16:20 Patient appears septic, he is hypotensive upon arrival IV fluid bolus ordered he is satting 91% on 4 L nasal cannula duo nebs ordered expect admission IV antibiotics have been ordered 09/24/17 18:29 Patient was given 2 L of IV fluids blood pressure has improved, x-ray does note improvement of pneumonic process Patient's oxygenation is improved 09/24/17 20:18 Patient's blood pressure has improved not significantly, I did speak with hospitalist we will admit to IMCU with very close watch - Vital Signs Vital signs: Temp Pulse Resp BP Pulse Ox 98.6 F 72 19 93/52 L 99 09/24/17 16:42 09/24/17 16:42 09/24/17 19:01 09/24/17 19:01 09/24/17 19:01 - Laboratory Result Diagrams: 09/24/17 17:00 09/24/17 17:00 Laboratory results interpreted by me: 09/24/17 09/24/17 17:00 17:00 MCH 33.7 H RDW 14.6 H Plt Count 103 L Creatinine 1.42 H Est GFR (Non-Af Amer) 50 L Direct Bilirubin 0.5 H Alkaline Phosphatase 164 H Albumin 3.1 L - Diagnostic Test Radiology reviewed: Image reviewed - 1 view chest x-ray notes COPD exacerbation , Reports reviewed - EKG Interpretation by Me EKG shows normal: Sinus rhythm, [place], Intervals, QRS Complexes Rate: Tachycardia When compared to previous EKG there are: No significant change Critical Care Note - Critical Care Note Total time excluding time spent on procedures (mins): 34 Comments: 34 minutes of critical care time spent in direct contact evaluating and reevaluating the patient, treating symptoms, reviewing labs and studies and speaking with family and consultants excluding any procedures Discharge - Discharge Clinical Impression: COPD exacerbation, Hypoxemia Hypotension Qualifiers: Hypotension type: unspecified hypotension type Qualified Code(s): I95.9 - Hypotension, unspecified Pneumonia Qualifiers: Pneumonia type: due to unspecified organism Laterality: unspecified laterality Lung location: unspecified part of lung Qualified Code(s): J18.9 - Pneumonia, unspecified organism Condition: Serious Disposition: ADMITTED INPATIENT Admitting Provider: Hospitalist Unit Admitted: IMCU Referrals: ALFA GRANGER NP [Primary Care Provider] - Follow up as needed
--- NOTE | 2017-09-24 16:59 | RADIOLOGY REPORT (SQ) ---
EXAM DESCRIPTION: CHEST SINGLE VIEW COMPLETED DATE/TIME: 09/24/2017 4:45 pm REASON FOR STUDY: pneumonia COMPARISON: 09/05/2017, 09/22/2017 EXAM PARAMETERS: NUMBER OF VIEWS: One view. TECHNIQUE: Single frontal radiographic view of the chest acquired. RADIATION DOSE: NA LIMITATIONS: None. FINDINGS: LUNGS AND PLEURA: Severe chronic changes and emphysematous changes. Back to baseline. No evidence currently for acute opacity. MEDIASTINUM AND HILAR STRUCTURES: No masses. Contour normal. HEART AND VASCULAR STRUCTURES: Heart normal in size. Normal vasculature. BONES: No acute findings. HARDWARE: None in the chest. OTHER: No other significant finding. IMPRESSION: Severe COPD and chronic changes. No acute opacity. Chest radiograph is back to yessica pastrana TECHNICAL DOCUMENTATION: JOB ID: [id number] [employer]- All Rights Reserved Reading location - IP/workstation name: [email or web address]
[2017-09-24 17:08] LABS: APPEARANCE,URINE CLEAR; BILIRUBIN,URINE NEGATIVE (NEGATIVE); COLOR,URINE YELLOW; GLUCOSE, URINE NEGATIVE (NEGATIVE); KETONES,URINE NEGATIVE (NEGATIVE); LEUKOCYTE ESTERASE,URINE NEGATIVE (NEGATIVE); NITRITE,URINE NEGATIVE (NEGATIVE); PROTEIN,URINE NEGATIVE (NEGATIVE); URINE SPECIFIC GRAVITY 1.021; UROBILINOGEN,URINE NEGATIVE mg/dL (<2.0)
--- NOTE | 2017-09-24 17:29 | EKG REPORT ---
SEVERITY:- BORDERLINE ECG - SINUS RHYTHM BORDERLINE RIGHT AXIS DEVIATION BORDERLINE T ABNORMALITIES, ANT-LAT LEADS : Confirmed by: Stepan Benson 24-Sep-2017 17:29:23
[2017-09-24 17:32] LABS: ABSOLUTE EOSINOPHILS # (AUTO) 0.2 10^3/uL (0.0-0.6); ABSOLUTE LYMPHOCYTES (AUTO) 1.1 10^3/uL (0.5-4.7); ABSOLUTE MONOCYTES (AUTO) 0.7 10^3/uL (0.1-1.4); ABSOLUTE NEUT (AUTO) 3.9 10^3/uL (1.7-8.2); BASOPHILS % (AUTO) 0.4 % (0-2); EOSINOPHILS % (AUTO) 2.9 % (0-6); HEMATOCRIT 44.6 % (37.9-51.0); HEMOGLOBIN 15.5 g/dL (13.5-17.0); LYMPHOCYTES % (AUTO) 18.4 % (13-45); MEAN CORPUSCULAR HEMOGLOBIN 33.7 pg (27.0-33.4); MEAN CORPUSCULAR HGB CONC 34.7 g/dL (32.0-36.0); MEAN CORPUSCULAR VOLUME 97 fl (80-97); MONOCYTES % (AUTO) 11.5 % (3-13); PLATELET COUNT 103 10^3/uL (150-450); RED CELL DISTRIBUTION WIDTH 14.6 % (11.5-14.0); SEGMENTED NEUTROPHILS % (AUTO) 66.8 % (42-78); TOTAL CELLS COUNTED % (AUTO) 100 %; WHITE BLOOD COUNT 5.9 10^3/uL (4.0-10.5)
[2017-09-24 17:37] LABS: VENOUS BLOOD BASE EXCESS -0.1 mmol/L; VENOUS BLOOD PCO2 52.9 mmHg (35-63); VENOUS BLOOD PH 7.33 (7.30-7.42)
[2017-09-24 17:39] LABS: INTERNATIONAL RATION (INR) 1.07; PROTHROMBIN TIME 14.4 SEC (11.4-15.4)
[2017-09-24 18:21] LABS: ALANINE AMINOTRANSFERASE 33 U/L (21-72); ALBUMIN 3.1 g/dL (3.5-5.0); ALKALINE PHOSPHATASE 164 U/L (38-126); ANION GAP 5 (5-19); ASPARTATE AMINO TRANSFERASE 47 U/L (17-59); BILIRUBIN,DIRECT 0.5 mg/dL (0.0-0.4); BILIRUBIN,TOTAL 0.7 mg/dL (0.2-1.3); BLOOD UREA NITROGEN 20 mg/dL (7-20); CARBON DIOXIDE 28 mmol/L (22-30); CHLORIDE 105 mmol/L (98-107); GLUCOSE 92 mg/dL (75-110); SODIUM 138.1 mmol/L (137-145)
[2017-09-24] MEDS ORDERED: PROMETHAZINE HCL 25 MG TABLET PO PRN (20:50)
[2017-09-24] MEDS ORDERED: ACETAMINOPHEN 325 MG TABLET PO PRN (20:50)
--- NOTE | 2017-09-24 21:36 | PDOC H&P ---
History of Present Illness Admission Date/PCP: 09/24/17 20:29 ALFA GRANGER NP History of Present Illness: CHATO BRAXTON is a 62 year old male patient presents with chief complaint of shortness of breath, cough and tightness of his belly. Of note patient was seen at ER for the same complaints and was impression of pneumonia patient was [facility] home with [facility]. At his baseline patient has end-stage lung disease and has been on oxygen . Patient has underlying COPD compounded by alpha anti-trypsin deficiency which also resulted in cirrhosis of the liver. Patient denies chills, fever, chest pain, palpitation or diaphoresis. He does not have any nausea vomiting abdominal pain or diarrhea. Patient reports low blood pressure at his baseline and for which she has been taking midodrine. Past Medical History Cardiac Medical History: Reports: Congestive Heart Failure, DVT, Myocardial Infarction, Hypertension - LOW, Pulmonary Embolism Denies: Coronary Artery Disease, Hyperlipidema Pulmonary Medical History: Reports: Chronic Obstructive Pulmonary Disease (COPD ) - on 2L nasal cannula., Pneumonia, Respiratory Failure Denies: Asthma, Bronchitis, Sleep Apnea, Tuberculosis Neurological Medical History: Denies: Seizures Endocrine Medical History: Reports: Diabetes Mellitus Type 2 - diet controlled. 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 Social History Smoking Status: Former Smoker Frequency of Alcohol Use: None Hx Recreational Drug Use: No Drugs: None Hx Prescription Drug Abuse: No - Advance Directive Resuscitation Status: Full Code Family History Family History: CAD, Hypertension, Other - CHF Parental Family History Reviewed: Yes Children Family History Reviewed: Yes Sibling(s) Family History Reviewed.: Yes Medication/Allergy Home Medications: Bumetanide [Bumex 1 mg Tablet] 1 mg PO BID 08/14/17 Famotidine [Pepcid 20 mg Tablet] 20 mg PO DAILY 08/14/17 Magnesium Oxide [Mag-Ox 400 mg Tablet] 400 mg PO BID 08/14/17 Midodrine HCl 10 mg PO TID 08/14/17 Potassium Chloride [Klor-Con 10 Meq Tablet.sa] 10 meq PO TID 08/14/17 Spironolactone [Aldactone] 50 mg PO DAILY 08/14/17 Tamsulosin HCl [Flomax 0.4 mg Cap.sr] 0.4 mg PO QPM 08/14/17 Theophylline Anhydrous [Partha-Dur 300 mg Tab.sr] 300 mg PO DAILY 08/14/17 Midodrine HCl [Proamatine 5 mg Tablet] 10 mg PO TID@0600,1100,1500 tablet 08/15 Propranolol HCl [Inderal 20 mg Tablet] 20 mg PO Q12 #60 tablet 08/15/17 Theophylline Anhydrous [Partha-Dur 300 mg Tab.sr] 300 mg PO DAILY tab.sr.12h Levofloxacin 750 mg PO DAILY #5 tablet 09/22/17 Allergies/Adverse Reactions: Heparin Analogues [Heparin Agents] Allergy (Severe, Verified 09/24/17 15:53) Thrombocytopenia heparinoids [Heparinoids] Allergy (Severe, Verified 09/24/17 15:53) Thrombocytopenia doxycycline Allergy (Intermediate, Verified 09/24/17 15:53) RED FACE AND SWELLING codeine [Codeine] Allergy (Unknown, Verified 09/24/17 15:53) GI upset Penicillins Allergy (Unknown, Verified 09/24/17 15:53) Swelling Review of Systems Constitutional: ABSENT: chills, fever(s), headache(s), weight gain, weight loss Ears: ABSENT: hearing changes Cardiovascular: ABSENT: chest pain, dyspnea on exertion, edema, orthropnea, palpitations Respiratory: ABSENT: cough, hemoptysis Gastrointestinal: ABSENT: abdominal pain, constipation, diarrhea, hematemesis, hematochezia, nausea, vomiting Neurological: ABSENT: abnormal gait, abnormal speech, confusion, dizziness, focal weakness, syncope Physical Exam Vital Signs: Temp Pulse Resp BP Pulse Ox 98.6 F 72 19 91/62 L 98 09/24/17 16:42 09/24/17 16:42 09/24/17 21:09 09/24/17 21:09 09/24/17 21:09 Intake & Output 09/23/17 09/24/17 09/25/17 06:59 06:59 06:59 Output Total 450 Balance -450 General appearance: PRESENT: mild distress Head exam: PRESENT: atraumatic, normocephalic Eye exam: PRESENT: conjunctiva pink, EOMI, PERRLA. ABSENT: scleral icterus Neck exam: ABSENT: carotid bruit, JVD, lymphadenopathy, thyromegaly Respiratory exam: PRESENT: wheezes Cardiovascular exam: PRESENT: RRR. ABSENT: diastolic murmur, rubs, systolic murmur GI/Abdominal exam: PRESENT: ascites Neurological exam: PRESENT: alert, awake, oriented to person, oriented to place , oriented to time, oriented to situation, CN II-XII grossly intact. ABSENT: motor sensory deficit Results Impressions: Chest X-Ray 09/24/17 16:17 IMPRESSION: Severe COPD and chronic changes. No acute opacity. Chest radiograph is back to baseline. Assessment & Plan - Diagnosis (1) Pneumonia Qualifiers: Laterality: left Is this a current diagnosis for this admission?: Yes Plan: Patient has been on Levaquin. (2) COPD exacerbation Is this a current diagnosis for this admission?: Yes Plan: DuoNeb, Solu-Medrol, supplemental oxygen and incentive spirometry. (3) Cirrhosis of liver Qualifiers: Ascites presence: with ascites Is this a current diagnosis for this admission?: Yes Plan: Paracentesis if needed - Inpatient Certification Medical Necessity: Need Close Monitoring Due to Risk of Patient Decompensation, Need For Continuous Telemetry Monitoring, Need for IV Antibiotics
[2017-09-24] MEDS ORDERED: BUDESONIDE/FORMOTEROL 160-4.5 MCG 60 PUFF/6 GM MDI IH ONE (21:38)
[2017-09-24] MEDS ORDERED: DEXTROSE 40% GEL 15 GM TUBE X 2 PO PRN (21:59)
[2017-09-24] MEDS ORDERED: DEXTROSE 50%-WATER SYRINGE 25 GM/50 ML DOSE IV PRN (21:59)
[2017-09-24] MEDS ORDERED: GLUCAGON,HUMAN RECOMB 1 MG INJ IM PRN (21:59)
[2017-09-24] MEDS ORDERED: DEXTROSE 50%-WATER SYRINGE 12.5 GM/25 ML DOSE IV PRN (21:59)
[2017-09-24] MEDS ORDERED: INSULIN LISPRO 100 UNIT/ML 3 ML VIAL SUBCUT PRN (21:59)
[2017-09-24] MEDS ORDERED: DEXTROSE 40% GEL 15 GM TUBE PO PRN (21:59)
[2017-09-24] MEDS: METHYLPREDNISOLONE INJ 40 MG/1 ML SDV IV SCH (22:21)
[2017-09-25] MEDS: IPRATROPIUM/ALBUTEROL 0.5-2.5 MG/3 ML AMPUL NEB SCH ×4 (01:27→19:45)
[2017-09-25] MEDS: METHYLPREDNISOLONE INJ 40 MG/1 ML SDV IV SCH ×3 (05:34→21:01)
[2017-09-25] MEDS: LANSOPRAZOLE 30 MG TAB.RAP.DR PO SCH (05:34)
[2017-09-25 07:17] LABS: ABSOLUTE LYMPHOCYTES (AUTO) 0.4 10^3/uL (0.5-4.7); ABSOLUTE NEUT (AUTO) 1.8 10^3/uL (1.7-8.2); BASOPHILS % (AUTO) 0.1 % (0-2); EOSINOPHILS % (AUTO) 0.2 % (0-6); HEMATOCRIT 40.5 % (37.9-51.0); MEAN CORPUSCULAR HEMOGLOBIN 33.4 pg (27.0-33.4); MEAN CORPUSCULAR HGB CONC 34.6 g/dL (32.0-36.0); MEAN CORPUSCULAR VOLUME 97 fl (80-97); MONOCYTES % (AUTO) 1.5 % (3-13); RED BLOOD COUNT 4.18 10^6/uL (4.35-5.55); RED CELL DISTRIBUTION WIDTH 14.5 % (11.5-14.0); SEGMENTED NEUTROPHILS % (AUTO) 82.2 % (42-78); TOTAL CELLS COUNTED % (AUTO) 100 %
[2017-09-25 07:33] LABS: ANION GAP 5 (5-19); BLOOD UREA NITROGEN 17 mg/dL (7-20); CALCIUM 8.4 mg/dL (8.4-10.2); CARBON DIOXIDE 23 mmol/L (22-30); CHLORIDE 110 mmol/L (98-107); GLUCOSE 114 mg/dL (75-110); POTASSIUM 4.9 mmol/L (3.6-5.0); SODIUM 137.9 mmol/L (137-145)
[2017-09-25 08:17] LABS: PLATELET COUNT 53 10^3/uL (150-450); WHITE BLOOD COUNT 2.2 10^3/uL (4.0-10.5)
[2017-09-25 08:55] LABS: ALANINE AMINOTRANSFERASE 35 U/L (21-72); ALBUMIN 2.3 g/dL (3.5-5.0); ALKALINE PHOSPHATASE 127 U/L (38-126); ASPARTATE AMINO TRANSFERASE 35 U/L (17-59); BILIRUBIN,DIRECT 0.4 mg/dL (0.0-0.4); BILIRUBIN,TOTAL 0.5 mg/dL (0.2-1.3); TOTAL PROTEIN 5.4 g/dL (6.3-8.2)
[2017-09-25] MEDS ORDERED: IPRATROPIUM/ALBUTEROL 0.5-2.5 MG/3 ML AMPUL NEB PRN (08:59)
[2017-09-25] MEDS ORDERED: MIDODRINE HCL 5 MG TABLET PO SCH (10:00)
[2017-09-25] MEDS: MIDODRINE HCL 5 MG TABLET PO SCH ×2 (10:19→16:46)
[2017-09-25] MEDS: LEVOFLOXACIN 750 MG/D5W RTU 750 MG/150 ML RTUPB IV SCH (10:19)
[2017-09-25] MEDS ORDERED: NORMAL SALINE 1000 ML 1,000 ML IV PRN (11:00)
[2017-09-25] MEDS ORDERED: NORMAL SALINE 1000 ML 500 ML IV ONE (12:00)
[2017-09-25] MEDS ORDERED: CEFEPIME 2 GM/D5W RTU 2 GM/50 ML RTUPB IV ONE (20:25)
[2017-09-25] MEDS: CEFEPIME 2 GM/D5W RTU 2 GM/50 ML RTUPB IV SCH (21:00)
--- NOTE | 2017-09-25 21:07 | PDOC PROGRESS REPORT ---
Subjective Progress Note for:: 09/25/17 Subjective:: CHATO BRAXTON is a 62 year old male who presented to the emergency for shortness of breath. LLL PNA discovered by XRAY during ER visit 09/22, he was sent home with PO levaquin, but returned 09/24 for persistent shortness of breath. 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 The patient was seen this morning on rounds, he is sitting up in bed on 2L supplemental oxygen (his home dose). He endorses mild shortness of breath. The patient is awake, A&O x 3, able to speak in full sentences without pause. His lungs are clear to auscultation. The patient does not appear to be in any respiratory distress, his respiratory rate is within normal range, and no evidence of hypoxia on vital sign trend. Reason For Visit: PNEUMONIA Physical Exam Vital Signs: Temp Pulse Resp BP Pulse Ox 97.8 F 102 H 16 96/61 L 96 09/25/17 16:07 09/25/17 16:07 09/25/17 16:07 09/25/17 16:07 09/25/17 16:07 Intake & Output 09/24/17 09/25/17 09/26/17 06:59 06:59 06:59 Intake Total 152 1381 Output Total 450 Balance -298 1381 Weight 68.4 kg General appearance: PRESENT: no acute distress Eye exam: PRESENT: conjunctiva pink, PERRLA Mouth exam: PRESENT: moist Teeth exam: PRESENT: poor dentation Neck exam: PRESENT: full ROM Respiratory exam: PRESENT: clear to auscultation porfirio, symmetrical, unlabored Cardiovascular exam: PRESENT: +S1, +S2 Pulses: PRESENT: normal radial pulses, normal dorsalis pedis pul GI/Abdominal exam: PRESENT: distended - VERY MILD, normal bowel sounds, soft. ABSENT: tenderness Rectal exam: PRESENT: deferred Extremities exam: PRESENT: full ROM Musculoskeletal exam: PRESENT: ambulatory, full ROM Neurological exam: PRESENT: alert, awake, oriented to person, oriented to place , oriented to time, oriented to situation Psychiatric exam: PRESENT: appropriate affect Skin exam: PRESENT: dry, intact, normal color Results Laboratory Results: 09/25/17 06:35 09/25/17 06:35 09/25/17 09/25/17 09/25/17 06:35 06:35 06:35 WBC 2.2 L D RBC 4.18 L Hgb 14.0 Hct 40.5 MCV 97 MCH 33.4 MCHC 34.6 RDW 14.5 H Plt Count 53 L Seg Neutrophils % 82.2 H Lymphocytes % 16.0 Monocytes % 1.5 L Eosinophils % 0.2 Basophils % 0.1 Absolute Neutrophils 1.8 Absolute Lymphocytes 0.4 L Absolute Monocytes 0.0 L Absolute Eosinophils 0.0 Absolute Basophils 0.0 Sodium 137.9 Potassium 4.9 Chloride 110 H Carbon Dioxide 23 Anion Gap 5 BUN 17 Creatinine 1.13 Est GFR ( Amer) > 60 Est GFR (Non-Af Amer) > 60 Glucose 114 H Lactic Acid Calcium 8.4 Total Bilirubin 0.5 AST 35 ALT 35 Alkaline Phosphatase 127 H Total Protein 5.4 L Albumin 2.3 L 09/25/17 09/25/17 08:58 15:14 WBC RBC Hgb Hct MCV MCH MCHC RDW Plt Count Seg Neutrophils % Lymphocytes % Monocytes % Eosinophils % Basophils % Absolute Neutrophils Absolute Lymphocytes Absolute Monocytes Absolute Eosinophils Absolute Basophils Sodium Potassium Chloride Carbon Dioxide Anion Gap BUN Creatinine Est GFR ( Amer) Est GFR (Non-Af Amer) Glucose Lactic Acid 2.3 H 4.4 H Calcium Total Bilirubin AST ALT Alkaline Phosphatase Total Protein Albumin Impressions: Chest X-Ray 09/24/17 16:17 IMPRESSION: Severe COPD and chronic changes. No acute opacity. Chest radiograph is back to baseline. Status: Imported from PACS Assessment & Plan - Diagnosis (1) Pneumonia Qualifiers: Pneumonia type: due to unspecified organism Laterality: left Lung location: unspecified part of lung Qualified Code(s): J18.9 - Pneumonia, unspecified organism Is this a current diagnosis for this admission?: Yes Plan: L sided PNA as evidence by CXR on 09/22, sent home on PO antibiotics but returned 09/24 for worsening SOB Repeat CXR 09/24 benign Significant leukopenia (WBC 2.2), patient remains afebrile an nontoxic appearing Lactate trending up 1.3 ->2.3 ->4.3 Could very well be falsely elevated 2/2 liver disease. This significantly elevated lactate does not accurately reflect the degree of disease burden. IV Levaquin and Cefepime for empiric coverage of Community Acquired Pneumonia ( CAP) Continue supplemental oxygen via nasal cannula for SPO2> 88% Blood cultures pending Maintenance IVF (2) COPD (chronic obstructive pulmonary disease) Qualifiers: COPD type: unspecified COPD Qualified Code(s): J44.9 - Chronic obstructive pulmonary disease, unspecified Is this a current diagnosis for this admission?: Yes Plan: Patient endorses hisortry of COPD Currently on 2L NC via NC, home dose of supplemental oxygen. No evidence of acidosis. Plan as above (3) Diabetes mellitus type II, controlled Qualifiers: Diabetes mellitus fci insulin use: without fci use Diabetes mellitus complication status: with unspecified complications Qualified Code(s) : E11.8 - Type 2 diabetes mellitus with unspecified complications Is this a current diagnosis for this admission?: Yes Plan: Patient endorses history of DM, currently diet controlled Will check HgbA1c in the AM No plan for sliding scale insulin at this time (4) Iejdx-[id number] deficiency Is this a current diagnosis for this admission?: Yes Plan: History of Alpha 1 antitrypsin deficiency, contributing to his liver failure Continue home dose midodrine for HYPOtension. (5) Full code status Is this a current diagnosis for this admission?: Yes Plan: Patient endorses that he wants to remain a FULL CODE. He technically meets criteria for Palliative Care, will ask them to consults - Time Time Spent with patient: 15-24 minutes Medications reviewed and adjusted accordingly: Yes Anticipated discharge: Home - Inpatient Certification Based on my medical assessment, after consideration of the patient's comorbidities, presenting symptoms, or acuity I expect that the services needed warrant INPATIENT care.: Yes I certify that my determination is in accordance with my understanding of Medicare's requirements for reasonable and necessary INPATIENT services [42 CFR 412.3e].: Yes Medical Necessity: Need for Pain Control
[2017-09-25] MEDS: FAMOTIDINE 20 MG TABLET PO SCH (22:16)
[2017-09-25] MEDS: PROPRANOLOL HCL 20 MG TABLET PO SCH (22:18)
[2017-09-26] MEDS: MIDODRINE HCL 5 MG TABLET PO SCH ×3 (05:43→14:40)
[2017-09-26] MEDS: METHYLPREDNISOLONE INJ 40 MG/1 ML SDV IV SCH (05:43)
[2017-09-26] MEDS: LANSOPRAZOLE 30 MG TAB.RAP.DR PO SCH (05:43)
[2017-09-26 07:15] LABS: HEMATOCRIT 39.1 % (37.9-51.0); MEAN CORPUSCULAR HEMOGLOBIN 33.4 pg (27.0-33.4); MEAN CORPUSCULAR HGB CONC 34.4 g/dL (32.0-36.0); MEAN CORPUSCULAR VOLUME 97 fl (80-97); RED BLOOD COUNT 4.03 10^6/uL (4.35-5.55); RED CELL DISTRIBUTION WIDTH 14.6 % (11.5-14.0)
[2017-09-26 07:32] LABS: ALANINE AMINOTRANSFERASE 30 U/L (21-72); ALBUMIN 2.2 g/dL (3.5-5.0); ALKALINE PHOSPHATASE 134 U/L (38-126); ASPARTATE AMINO TRANSFERASE 27 U/L (17-59); BILIRUBIN,DIRECT 0.3 mg/dL (0.0-0.4); BILIRUBIN,TOTAL 0.3 mg/dL (0.2-1.3); BLOOD UREA NITROGEN 19 mg/dL (7-20); CALCIUM 8.5 mg/dL (8.4-10.2); GLUCOSE 137 mg/dL (75-110); POTASSIUM 4.6 mmol/L (3.6-5.0); TOTAL PROTEIN 5.1 g/dL (6.3-8.2)
[2017-09-26 07:37] LABS: ANION GAP 5 (5-19); CARBON DIOXIDE 24 mmol/L (22-30); CHLORIDE 110 mmol/L (98-107); SODIUM 139.2 mmol/L (137-145)
[2017-09-26 07:39] LABS: PHOSPHORUS 2.9 mg/dL (2.5-4.5)
[2017-09-26 08:20] LABS: WHITE BLOOD COUNT 9.3 10^3/uL (4.0-10.5)
[2017-09-26 08:22] LABS: HEMOGLOBIN 13.4 g/dL (13.5-17.0)
[2017-09-26 08:26] LABS: ABSOLUTE LYMPHOCYTES# (MANUAL) 0.7 10^3/uL (0.5-4.7); ABSOLUTE NEUTROPHILS# (MANUAL) 8.6 10^3/uL (1.7-8.2); BAND NEUTROPHILS % (MANUAL) 3 % (3-5); BASOPHILS % (MANUAL) 0 % (0-2); EOSINOPHILS % (MANUAL) 0 % (0-6); LYMPHOCYTES % (MANUAL) 6 % (13-45); MONOCYTES % (MANUAL) 0 % (3-13); SEGMENTED NEUTROPHILS % (MAN) 90 % (42-78); TOTAL CELLS COUNTED 100
[2017-09-26 08:27] LABS: PLATELET COMMENT DECREASED; POLYCHROMASIA SLIGHT; TOXIC GRANULATION SLIGHT; TOXIC VACUOLATION PRESENT
[2017-09-26 08:31] LABS: PLATELET COUNT 51 10^3/uL (150-450)
[2017-09-26] MEDS: IPRATROPIUM/ALBUTEROL 0.5-2.5 MG/3 ML AMPUL NEB SCH ×3 (08:36→20:10)
[2017-09-26] MEDS: FAMOTIDINE 20 MG TABLET PO SCH ×2 (10:27→21:21)
[2017-09-26] MEDS: SPIRONOLACTONE 25 MG TABLET PO SCH (10:27)
[2017-09-26] MEDS: MAGNESIUM OXIDE 400 MG TABLET PO SCH ×2 (10:28→17:25)
[2017-09-26] MEDS: THEOPHYLLINE ANHYDROUS 300 MG TAB.SR.12H PO SCH (10:28)
[2017-09-26] MEDS: PROPRANOLOL HCL 20 MG TABLET PO SCH (10:28)
[2017-09-26] MEDS: CEFEPIME 2 GM/D5W RTU 2 GM/50 ML RTUPB IV SCH ×2 (10:29→21:17)
[2017-09-26] MEDS: LEVOFLOXACIN 750 MG/D5W RTU 750 MG/150 ML RTUPB IV SCH (11:19)
--- NOTE | 2017-09-26 16:12 | PDOC PROGRESS REPORT ---
<RAMONPILY Anna - Last Filed: 09/26/17 16:06> Subjective Progress Note for:: 09/26/17 Subjective:: CHATO BRAXTON is a 62 year old male who presented to the emergency for shortness of breath. LLL PNA discovered by XRAY during ER visit 09/22, he was sent home with PO levaquin, but returned 09/24 for persistent shortness of breath. 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 The patient was seen this morning on rounds, he is sitting up in bed on 2L supplemental oxygen (his home dose). The patient is awake, A&O x 3, able to speak in full sentences without pause. His lungs are clear to auscultation. The patient does not appear to be in any respiratory distress, his respiratory rate is within normal range, and no evidence of hypoxia on vital sign trend. However , the patient states he is not ready to go home yet. He states he does not feel "quite ready." He is especially nervous because he initially presented to the ED with his PNA and sent home on PO antibiotics, only to return with worsening SOB just a few days later. Per nursing staff, the patient became bradycardic overnight, his heart rate dropping to 45. The rhythm remained sinus bradycardia. The patient denied any complaints, in fact he was sleeping at the time of this event. Nursing staff denies similar episodes during the daytime. Reason For Visit: PNEUMONIA Physical Exam Vital Signs: Temp Pulse Resp BP Pulse Ox 97.7 F 76 18 100/54 L 96 09/26/17 12:46 09/26/17 13:55 09/26/17 13:55 09/26/17 12:46 09/26/17 13:55 Intake & Output 09/25/17 09/26/17 09/27/17 06:59 06:59 06:59 Intake Total 152 1633 Output Total 450 Balance -298 1633 Weight 68.4 kg 71.4 kg General appearance: PRESENT: no acute distress Eye exam: PRESENT: conjunctiva pink, PERRLA Mouth exam: PRESENT: dry mucosa Teeth exam: PRESENT: poor dentation Neck exam: PRESENT: full ROM Respiratory exam: PRESENT: clear to auscultation porfirio, symmetrical, unlabored Cardiovascular exam: PRESENT: +S1, +S2 Pulses: PRESENT: normal radial pulses, normal dorsalis pedis pul GI/Abdominal exam: PRESENT: distended - CHRONIC SECONDARY TO LIVER DISEASE, soft. ABSENT: tenderness Rectal exam: PRESENT: deferred Extremities exam: PRESENT: full ROM Musculoskeletal exam: PRESENT: ambulatory - PER PATIENT, ONLY ABLE TO WALK APPROX. 10 STEPS BEFORE BECOMING SOB, full ROM Neurological exam: PRESENT: alert, awake, oriented to person, oriented to place , oriented to time, oriented to situation Psychiatric exam: PRESENT: appropriate affect Skin exam: PRESENT: dry, intact, normal color Results Laboratory Results: 09/26/17 06:27 09/26/17 06:27 09/25/17 09/26/17 09/26/17 15:14 06:27 06:27 WBC Cancelled RBC Cancelled Hgb Cancelled Hct Cancelled MCV Cancelled MCH Cancelled MCHC Cancelled RDW Cancelled Plt Count Cancelled Seg Neutrophils % Lymphocytes % Monocytes % Eosinophils % Basophils % Absolute Neutrophils Absolute Lymphocytes Absolute Monocytes Absolute Eosinophils Absolute Basophils Sodium Cancelled Potassium Cancelled Chloride Cancelled Carbon Dioxide Cancelled Anion Gap Cancelled BUN Cancelled Creatinine Cancelled Est GFR ( Amer) Cancelled Est GFR (Non-Af Amer) Cancelled Glucose Cancelled Lactic Acid 4.4 H Calcium Cancelled Phosphorus 2.9 Magnesium 2.0 Total Bilirubin AST ALT Alkaline Phosphatase Total Protein Albumin 09/26/17 09/26/17 06:27 06:27 WBC 9.3 D RBC 4.03 L Hgb 13.4 L Hct 39.1 MCV 97 MCH 33.4 MCHC 34.4 RDW 14.6 H Plt Count 51 L Seg Neutrophils % Not Reportable Lymphocytes % Not Reportable Monocytes % Not Reportable Eosinophils % Not Reportable Basophils % Not Reportable Absolute Neutrophils Not Reportable Absolute Lymphocytes Not Reportable Absolute Monocytes Not Reportable Absolute Eosinophils Not Reportable Absolute Basophils Not Reportable Sodium 139.2 Potassium 4.6 Chloride 110 H Carbon Dioxide 24 Anion Gap 5 BUN 19 Creatinine 1.12 Est GFR ( Amer) > 60 Est GFR (Non-Af Amer) > 60 Glucose 137 H Lactic Acid Calcium 8.5 Phosphorus Magnesium Total Bilirubin 0.3 AST 27 ALT 30 Alkaline Phosphatase 134 H Total Protein 5.1 L Albumin 2.2 L 09/26/17 06:49 NT-Pro-B Natriuret Pep 905 H Impressions: Chest X-Ray 09/24/17 16:17 IMPRESSION: Severe COPD and chronic changes. No acute opacity. Chest radiograph is back to baseline. Status: Imported from PACS Assessment & Plan - Diagnosis (1) Pneumonia QualifierTitle: Pneumonia type: due to unspecified organism Laterality: left Lung location: unspecified part of lung Qualified Code(s): J18.9 - Pneumonia, unspecified organism Is this a current diagnosis for this admission?: Yes Plan: L sided PNA as evidence by CXR on 09/22, sent home on PO antibiotics but returned 09/24 for worsening SOB Repeat CXR 09/24 benign Lactate trending up 09/27 (1.3 ->2.3 ->4.3) Likely falsely elevated secondary to liver disease. This significantly elevated lactate is not an accurate reflection of the patient's current illness. He is alert, awake and oriented 3. He is fully able to participate in care. No evidence of leukocytosis/leukopenia, patient remains afebrile an nontoxic appearing. Admit to [facility] IV Levaquin and Cefepime for empiric coverage of Community Acquired Pneumonia ( CAP). Levaquin initially started in ED 09/22, cefepime initiated 09/25 for broadened spectrum given leukopenia (09/25 WBC 2.2) Continue supplemental oxygen via nasal cannula for SPO2> 88% Blood and sputum cultures demonstrate no growth to date (2) COPD (chronic obstructive pulmonary disease) QualifierTitle: COPD type: unspecified COPD Qualified Code(s): J44.9 - Chronic obstructive pulmonary disease, unspecified Is this a current diagnosis for this admission?: Yes (3) Diabetes mellitus type II, controlled QualifierTitle: Diabetes mellitus retirement insulin use: without ferry terminal agent use Diabetes mellitus complication status: with unspecified complications Qualified Code(s): E11.8 - Type 2 diabetes mellitus with unspecified complications Is this a current diagnosis for this admission?: Yes (4) [id number] deficiency Is this a current diagnosis for this admission?: Yes (5) Full code status Is this a current diagnosis for this admission?: Yes (6) Pjjxe-[id number] deficiency Is this a current diagnosis for this admission?: Yes Plan: Chronic liver disease secondary to alpha-1 antitrypsin deficiency. Continue p.o. propranolol for portal vein hypertension and esophageal varices prophylaxis in a liver failure patient. (7) Bradycardia Is this a current diagnosis for this admission?: Yes Plan: Nursing staff reports bradycardia (HR 45) overnight while patient is asleep. There appeared to be no effects on his blood pressure. We will decrease propranolol dosing from 20 mg daily to 10 mg daily. - Time Time Spent with patient: 15-24 minutes Medications reviewed and adjusted accordingly: Yes Anticipated discharge: Home Within: within 24 hours - Inpatient Certification Based on my medical assessment, after consideration of the patient's comorbidities, presenting symptoms, or acuity I expect that the services needed warrant INPATIENT care.: Yes I certify that my determination is in accordance with my understanding of Medicare's requirements for reasonable and necessary INPATIENT services [42 CFR 412.3e].: Yes Medical Necessity: Need for IV Antibiotics - Plan Summary Plan Summary: Anticipate discharge home tomorrow <NATTYAUGUST C - Last Filed: 09/28/17 15:49> Subjective Reason For Visit: PNEUMONIA Physical Exam Vital Signs: Temp Pulse Resp BP Pulse Ox 97.9 F 66 17 92/53 L 100 09/28/17 12:43 09/28/17 12:43 09/28/17 12:43 09/28/17 12:43 09/28/17 12:43 Intake & Output 09/27/17 09/28/17 09/29/17 06:59 06:59 06:59 Intake Total 1200 1687 118 Output Total 1375 Balance -175 1687 118 Weight 70.3 kg 70 kg Results Laboratory Results: 09/26/17 06:27 09/28/17 05:52 09/28/17 05:52 Sodium 140.9 Potassium 4.7 Chloride 108 H Carbon Dioxide 28 Anion Gap 5 BUN 27 H Creatinine 1.02 Est GFR ( Amer) > 60 Est GFR (Non-Af Amer) > 60 Glucose 114 H Calcium 8.7 Total Bilirubin 0.4 AST 32 ALT 41 Alkaline Phosphatase 167 H Total Protein 5.1 L Albumin 2.3 L 09/26/17 09/27/17 06:49 06:26 NT-Pro-B Natriuret Pep 905 H 1050 H Impressions: Chest X-Ray 09/24/17 16:17 IMPRESSION: Severe COPD and chronic changes. No acute opacity. Chest radiograph is back to baseline. Assessment & Plan - Plan Summary Plan Summary: Co signing note for Pily Irvin NP
[2017-09-26] MEDS: PREDNISONE 20 MG TABLET PO SCH (17:25)
[2017-09-26] MEDS: TAMSULOSIN HCL 0.4 MG CAP.SR.24H PO SCH (17:26)
[2017-09-26] MEDS: SENNOSIDES/DOCUSATE 8.6-50 MG 1 EACH TABLET PO SCH (17:26)
[2017-09-26] MEDS: PROPRANOLOL HCL 10 MG TABLET PO SCH (21:16)
[2017-09-27] MEDS: LANSOPRAZOLE 30 MG TAB.RAP.DR PO SCH (06:25)
[2017-09-27] MEDS: MIDODRINE HCL 5 MG TABLET PO SCH ×3 (06:25→15:28)
[2017-09-27 07:37] LABS: ALANINE AMINOTRANSFERASE 38 U/L (21-72); ALBUMIN 2.5 g/dL (3.5-5.0); ALKALINE PHOSPHATASE 170 U/L (38-126); ANION GAP 7 (5-19); ASPARTATE AMINO TRANSFERASE 39 U/L (17-59); BILIRUBIN,DIRECT 0.3 mg/dL (0.0-0.4); BILIRUBIN,TOTAL 0.4 mg/dL (0.2-1.3); BLOOD UREA NITROGEN 23 mg/dL (7-20); CALCIUM 8.7 mg/dL (8.4-10.2); CARBON DIOXIDE 27 mmol/L (22-30); CHLORIDE 108 mmol/L (98-107); GLUCOSE 109 mg/dL (75-110); PHOSPHORUS 2.8 mg/dL (2.5-4.5); POTASSIUM 4.5 mmol/L (3.6-5.0); SODIUM 141.7 mmol/L (137-145); TOTAL PROTEIN 5.5 g/dL (6.3-8.2)
[2017-09-27] MEDS: IPRATROPIUM/ALBUTEROL 0.5-2.5 MG/3 ML AMPUL NEB SCH ×3 (09:05→20:19)
[2017-09-27] MEDS: FAMOTIDINE 20 MG TABLET PO SCH ×2 (10:06→21:28)
[2017-09-27] MEDS: MAGNESIUM OXIDE 400 MG TABLET PO SCH ×2 (10:07→17:22)
[2017-09-27] MEDS: PROPRANOLOL HCL 10 MG TABLET PO SCH ×2 (10:07→21:35)
[2017-09-27] MEDS: THEOPHYLLINE ANHYDROUS 300 MG TAB.SR.12H PO SCH (10:08)
[2017-09-27] MEDS: SENNOSIDES/DOCUSATE 8.6-50 MG 1 EACH TABLET PO SCH ×2 (10:08→17:22)
[2017-09-27] MEDS: SPIRONOLACTONE 25 MG TABLET PO SCH (10:09)
[2017-09-27] MEDS: PREDNISONE 20 MG TABLET PO SCH ×2 (10:09→17:22)
[2017-09-27] MEDS: LEVOFLOXACIN 750 MG/D5W RTU 750 MG/150 ML RTUPB IV SCH (10:10)
[2017-09-27] MEDS ORDERED: NORMAL SALINE 1000 ML 500 ML IV PRN (10:24)
[2017-09-27] MEDS: CEFEPIME 2 GM/D5W RTU 2 GM/50 ML RTUPB IV SCH (10:41)
[2017-09-27] MEDS ORDERED: COSYNTROPIN INJ 0.25 MG VIAL IV SCH (12:00)
--- NOTE | 2017-09-27 12:59 | PDOC PROGRESS REPORT ---
Subjective Progress Note for:: 09/27/17 Subjective:: The patient is a 62-year-old male with past medical history of CHF, MIs, cirrhosis, COPD, alpha-1 antitrypsin deficiency, chronic hypotension, PE, DVT, DM, GERD who is home O2 dependent and was admitted on 09/24/17 for left-sided pneumonia. The patient was seen on morning rounds with his present. He is found sitting up to the edge of the bed on his baseline oxygen requirement of 2 lpm. He is speaking full sentences and reports that he was ambulatory in the hallways yesterday. He reports continued increased work of breathing and sensation of dyspnea, although, acknowledges that he is now maintaining his oxygen saturations. The patient reports that he became dizzy with standing this morning during orthostatic vital signs. His BP decreased to 82/55 from 100/61, but HR remained stable. He reports chronic hypotension related to liver disease and medications, but stats that he is not usually symptomatic. He is frustrated by the cost of the midodrine and states that he does not appreciate a benefit to the medication. He denies fever, chills, headache, chest pain, palpitations, orthopnea, abdominal pain, nausea vomiting and diarrhea. He does endorse an occasionally productive cough and dyspnea on exertion. Reason For Visit: PNEUMONIA Physical Exam Vital Signs: Temp Pulse Resp BP Pulse Ox 97.7 F 69 16 100/64 99 09/27/17 11:53 09/27/17 11:53 09/27/17 11:53 09/27/17 11:53 09/27/17 11:53 Intake & Output 09/26/17 09/27/17 09/28/17 06:59 06:59 06:59 Intake Total 1633 1200 300 Output Total 1375 Balance 1633 -175 300 Weight 71.4 kg 70.3 kg General appearance: PRESENT: no acute distress, cooperative, thin, well- developed, well-nourished Head exam: PRESENT: atraumatic, normocephalic Eye exam: PRESENT: conjunctiva pink, EOMI, PERRLA. ABSENT: scleral icterus Ear exam: PRESENT: normal external ear exam Mouth exam: PRESENT: moist, tongue midline Neck exam: ABSENT: carotid bruit, JVD, lymphadenopathy, thyromegaly Respiratory exam: PRESENT: clear to auscultation porfirio, decreased breath sounds - diminished, prolonged expiratory phas, symmetrical, unlabored, other - supplemental oxygen via NC. ABSENT: rales, rhonchi, wheezes Cardiovascular exam: PRESENT: RRR. ABSENT: diastolic murmur, rubs, systolic murmur Pulses: PRESENT: normal dorsalis pedis pul Vascular exam: PRESENT: normal capillary refill GI/Abdominal exam: PRESENT: normal bowel sounds, soft. ABSENT: distended, guarding, mass, organolmegaly, rebound, tenderness Rectal exam: PRESENT: deferred Extremities exam: PRESENT: full ROM. ABSENT: calf tenderness, clubbing, pedal edema Neurological exam: PRESENT: alert, awake, oriented to person, oriented to place , oriented to time, oriented to situation, CN II-XII grossly intact. ABSENT: motor sensory deficit Psychiatric exam: PRESENT: appropriate affect, normal mood. ABSENT: homicidal ideation, suicidal ideation Skin exam: PRESENT: dry, intact, warm. ABSENT: cyanosis, rash Results Laboratory Results: 09/26/17 06:27 09/27/17 06:26 09/27/17 06:26 Sodium 141.7 Potassium 4.5 Chloride 108 H Carbon Dioxide 27 Anion Gap 7 BUN 23 H Creatinine 1.17 Est GFR ( Amer) > 60 Est GFR (Non-Af Amer) > 60 Glucose 109 Calcium 8.7 Phosphorus 2.8 Magnesium 2.2 Total Bilirubin 0.4 AST 39 ALT 38 Alkaline Phosphatase 170 H Total Protein 5.5 L Albumin 2.5 L 09/26/17 06:49 NT-Pro-B Natriuret Pep 905 H Impressions: Chest X-Ray 09/24/17 16:17 IMPRESSION: Severe COPD and chronic changes. No acute opacity. Chest radiograph is back to baseline. Assessment & Plan - Diagnosis (1) Pneumonia Qualifiers: Pneumonia type: due to unspecified organism Laterality: left Lung location: unspecified part of lung Qualified Code(s): J18.9 - Pneumonia, unspecified organism Is this a current diagnosis for this admission?: Yes Plan: Improved. The patient was admitted with a left-sided pneumonia evidenced by chest x-ray on 09/22 and was sent home on p.o. Levaquin return on 09/24 for worsening shortness of breath. Repeat chest x-ray on 09/24 was benign. Although, lactic acid trended up from 1.3-4.3, this is likely falsely elevated secondary to liver disease and is not an accurate reflection of the patient's current illness. He is alert and oriented 3, fully able to participate in care , and clinically improving. The patient remains afebrile and he has a normal WBC today. The patient was admitted to [facility]. He was empirically placed on IV Levaquin and cefepime for coverage of a community-acquired pneumonia. Has blood cultures are negative at 48 hours, WBCs are normal, and the patient has remained afebrile, will discontinue IV cefepime at this time and transition back to p.o. Levaquin for completion of 7 day course of antibiotics. He is provided supplemental oxygen to maintain saturations greater than 88% Scheduled and as needed nebulizer treatments are provided. Flutter valve to bedside. (2) COPD exacerbation Is this a current diagnosis for this admission?: Yes Plan: Secondary to Lt side pneumonia complicated by alpha 1 antitrypsin deficiency. We will continue the patient's home medication; theophylline. Scheduled and as needed nebulizer treatments. It does not appear that the patient is on any maintenance COPD medications and may benefit from Spiriva and Symbicort. P.o. prednisone. Remaining plan as above. (3) Hypotension Qualifiers: Hypotension type: unspecified hypotension type Qualified Code(s): I95.9 - Hypotension, unspecified Is this a current diagnosis for this admission?: Yes Plan: The patient reports a history of chronic hypotension related to liver disease and medications (spironolactone, Bumex, propanolol). He reports that he has been on Midodrine for several years and does not appreciate a difference in blood pressures. He is frustrated by the cost of medication. To his knowledge, he has never had an evaluation for adrenal insufficiency completed. Fall precautions. Will provide a 500 mL NS bolus. Will evaluate random, AM, and post-cosynotropin cortisol levels; patient may benefit from trial of florinef over midodrine. (4) Yewli-[id number] deficiency Is this a current diagnosis for this admission?: Yes Plan: Follow up with outpatient provider. (5) Diabetes mellitus type II, controlled Qualifiers: Diabetes mellitus termite treater helper insulin use: without termite treater helper use Diabetes mellitus complication status: with unspecified complications Qualified Code(s) : E11.8 - Type 2 diabetes mellitus with unspecified complications Is this a current diagnosis for this admission?: Yes Plan: Diet controlled as an outpatient. Consistent carb diet. Accu-Cheks before meals and at bedtime with Humalog for sliding scale coverage. (6) Bradycardia Is this a current diagnosis for this admission?: Yes Plan: Reported by nursing previously; no report of bradycardia overnight. Heart rate range 62-85 over last 48 hours. Continue propanolol 10 mg BID. - Time Time Spent with patient: 25-34 minutes Medications reviewed and adjusted accordingly: Yes Anticipated discharge: Home Within: within 24 hours
[2017-09-27] MEDS: TAMSULOSIN HCL 0.4 MG CAP.SR.24H PO SCH (17:22)
[2017-09-28] MEDS: LANSOPRAZOLE 30 MG TAB.RAP.DR PO SCH (05:12)
[2017-09-28] MEDS: MIDODRINE HCL 5 MG TABLET PO SCH ×2 (05:12→11:52)
[2017-09-28 06:50] LABS: ALANINE AMINOTRANSFERASE 41 U/L (21-72); ALBUMIN 2.3 g/dL (3.5-5.0); ALKALINE PHOSPHATASE 167 U/L (38-126); ANION GAP 5 (5-19); ASPARTATE AMINO TRANSFERASE 32 U/L (17-59); BILIRUBIN,DIRECT 0.3 mg/dL (0.0-0.4); BILIRUBIN,TOTAL 0.4 mg/dL (0.2-1.3); BLOOD UREA NITROGEN 27 mg/dL (7-20); CALCIUM 8.7 mg/dL (8.4-10.2); CARBON DIOXIDE 28 mmol/L (22-30); CHLORIDE 108 mmol/L (98-107); GLUCOSE 114 mg/dL (75-110); POTASSIUM 4.7 mmol/L (3.6-5.0); SODIUM 140.9 mmol/L (137-145); TOTAL PROTEIN 5.1 g/dL (6.3-8.2)
[2017-09-28] MEDS: IPRATROPIUM/ALBUTEROL 0.5-2.5 MG/3 ML AMPUL NEB SCH (08:43)
[2017-09-28] MEDS: MAGNESIUM OXIDE 400 MG TABLET PO SCH (09:25)
[2017-09-28] MEDS: SPIRONOLACTONE 25 MG TABLET PO SCH (09:26)
[2017-09-28] MEDS: THEOPHYLLINE ANHYDROUS 300 MG TAB.SR.12H PO SCH (09:26)
[2017-09-28] MEDS: FAMOTIDINE 20 MG TABLET PO SCH (09:26)
[2017-09-28] MEDS: PREDNISONE 20 MG TABLET PO SCH (09:26)
[2017-09-28] MEDS: SENNOSIDES/DOCUSATE 8.6-50 MG 1 EACH TABLET PO SCH (09:31)
[2017-09-28] MEDS: PROPRANOLOL HCL 10 MG TABLET PO SCH (09:31)
[2017-09-28] MEDS ORDERED: FLUDROCORTISONE ACETATE 0.1 MG TABLET PO SCH (10:00)
[2017-09-28] MEDS ORDERED: LEVOFLOXACIN 750 MG TABLET PO SCH (10:00)
[2017-09-28 12:45] VITALS: BP 92/53
--- NOTE | 2017-10-02 20:56 | PDOC DISCHARGE SUMMARY ---
General - Admit/Disc Date/PCP Admission Date/Primary Care Provider: 09/24/17 20:29 ALFA GRANGER NP Discharge Date: 09/28/17 - Discharge Diagnosis (1) Pneumonia Is this a current diagnosis for this admission?: Yes (2) COPD exacerbation Is this a current diagnosis for this admission?: Yes (3) Hypotension Is this a current diagnosis for this admission?: Yes (4) Gnkqx-3-nrexlztoius deficiency Is this a current diagnosis for this admission?: Yes (5) Diabetes mellitus type II, controlled Is this a current diagnosis for this admission?: Yes (6) Bradycardia Is this a current diagnosis for this admission?: Yes - Additional Information Resuscitation Status: Full Code Discharge Diet: Regular Discharge Activity: Activity As Tolerated, Balance Activity w/Rest Prescriptions: Fludrocortisone Acetate [Florinef 0.1 mg Tablet] 0.05 mg PO DAILY #30 tablet Prednisone [Deltasone 20 mg Tablet] 40 mg PO DAILY #4 tablet Propranolol HCl [Inderal 20 mg Tablet] 10 mg PO Q12 #60 tablet Home Medications: Bumetanide [Bumex 1 mg Tablet] 1 mg PO DAILY 08/14/17 Famotidine [Pepcid 20 mg Tablet] 20 mg PO Q12 08/14/17 Magnesium Oxide [Mag-Ox 400 mg Tablet] 400 mg PO BID 08/14/17 Potassium Chloride [Klor-Con 10 Meq Tablet.sa] 10 meq PO TID@0600,1100,1500 Spironolactone [Aldactone] 50 mg PO DAILY 08/14/17 Tamsulosin HCl [Flomax 0.4 mg Cap.sr] 0.4 mg PO QPM 08/14/17 Midodrine HCl [Proamatine 5 mg Tablet] 10 mg PO TID@0600,1100,1500 tablet 08/15 Theophylline Anhydrous [Partha-Dur 300 mg Tab.sr] 300 mg PO DAILY tab.sr.12h Albuterol Sulfate [Ventolin Hfa] 2 puff IH Q4HP PRN 09/25/17 Ipratropium [place] 0.2 mg IH RTQ6 09/25/17 Levalbuterol Tartrate [Xopenex Hfa] 3 ml IH RTQ6HP PRN 09/25/17 Fludrocortisone Acetate [Florinef 0.1 mg Tablet] 0.05 mg PO DAILY #30 tablet 10/10 Prednisone [Deltasone 20 mg Tablet] 40 mg PO DAILY #4 tablet 09/28/17 Propranolol HCl [Inderal 20 mg Tablet] 10 mg PO Q12 #60 tablet 09/28/17 History of Present Illness History of Present Illness: Per H&P by Dr. Duncan: CHATO BRAXTON is a 62 year old male male patient presents with chief complaint of shortness of breath, cough and tightness of his belly. Of note patient was seen at ER for the same complaints and was impression of pneumonia patient was sent home with Levaquin. At his baseline patient has end-stage lung disease and has been on oxygen . Patient has underlying COPD compounded by alpha anti-trypsin deficiency which also resulted in cirrhosis of the liver. Patient denies chills, fever, chest pain, palpitation or diaphoresis. He does not have any nausea vomiting abdominal pain or diarrhea. Patient reports low blood pressure at his baseline and for which she has been taking midodrine. Hospital Course Hospital Course: The patient was admitted with a left-sided pneumonia evidenced by chest x-ray on 09/22 and was sent home on p.o. Levaquin return on 09/24 for worsening shortness of breath. Repeat chest x-ray on 09/24 was benign. Although, lactic acid trended up from 1.3-4.3, this was likely falsely elevated secondary to liver disease and was not an accurate reflection of the patient's illness. The patient was admitted to [facility]. He was empirically placed on IV Levaquin and cefepime for coverage of a community-acquired pneumonia. At 48 hours, his blood cultures remained negative , leukocytosis has resolved, and the patient was clinically improving. Therefore, cefepime was discontinued and the patient was transitioned back to p.o. Levaquin for completion of 7 day course of antibiotics. He was supported with supplemental oxygen, and scheduled and as needed nebulizer treatments. He was initially provided IV Solu-Medrol and then weaned to p.o. prednisone which was continued at discharge. The patient's home medication, theophylline, was continued. He did not appear to be on any maintainace COPD medications, and would benefit from Spiriva and Symbicort. The patient declined these medications stating he had been tried on numerous combinations without reduction of symptoms. The patient was noted to have bradycardia to the mid 40s which improved following dose reduction of propanolol. The patient reported a history of chronic hypotension related to liver disease and medications (spironolactone, Bumex, propanolol) currently managed with midodrine. Despite this, the patient does not appreciate improvements in blood pressures or reduction of orthostatic hypotensive symptoms. To his knowledge, he has never had an evaluation for adrenal insufficiency completed. His random cortisol level was noted to be 14.8, post-cosynotropin cortisol level was 19.2, AM cortisol 7.03. The risks, benefits, and side effects of initiating florinef was discussed with the patient and his . He elected to start low dose florinef in addition to his midodrine and to follow up with his primary care provider for dose adjustments. Florinef may also provide slight COPD symptom reduction. At time of discharge, the patient was in stable condition and maintaining oxygen saturations on his baseline oxygen requirement. He is recommended to follow up with his primary care provided within 1 week. Physical Exam Vital Signs: Temp Pulse Resp BP Pulse Ox 97.9 F 66 17 92/53 L 100 09/28/17 12:43 09/28/17 12:43 09/28/17 12:43 09/28/17 12:43 09/28/17 12:43 General appearance: PRESENT: no acute distress, cooperative, well-developed, well-nourished Head exam: PRESENT: atraumatic, normocephalic Eye exam: PRESENT: conjunctiva pink, EOMI, PERRLA. ABSENT: scleral icterus Ear exam: PRESENT: normal external ear exam Mouth exam: PRESENT: moist, tongue midline Neck exam: ABSENT: carotid bruit, JVD, lymphadenopathy, thyromegaly Respiratory exam: PRESENT: clear to auscultation porfirio, prolonged expiratory phas , symmetrical, unlabored, other - Supplemental oxygen via NC. ABSENT: rales, rhonchi, wheezes Cardiovascular exam: PRESENT: RRR, +S1, +S2. ABSENT: diastolic murmur, rubs, systolic murmur Pulses: PRESENT: normal dorsalis pedis pul Vascular exam: PRESENT: normal capillary refill GI/Abdominal exam: PRESENT: normal bowel sounds, soft. ABSENT: distended, guarding, mass, organolmegaly, rebound, tenderness Rectal exam: PRESENT: deferred Extremities exam: PRESENT: full ROM. ABSENT: calf tenderness, clubbing, pedal edema Neurological exam: PRESENT: alert, awake, oriented to person, oriented to place , oriented to time, oriented to situation, CN II-XII grossly intact. ABSENT: motor sensory deficit Psychiatric exam: PRESENT: appropriate affect, normal mood. ABSENT: homicidal ideation, suicidal ideation Skin exam: PRESENT: dry, intact, warm. ABSENT: cyanosis, rash Results Laboratory Results: 09/26/17 06:27 09/28/17 05:52 09/26/17 09/27/17 06:49 06:26 NT-Pro-B Natriuret Pep 905 H 1050 H Impressions: Chest X-Ray 09/24/17 16:17 IMPRESSION: Severe COPD and chronic changes. No acute opacity. Chest radiograph is back to baseline. Qualifiers - * PATIENT BEING DISCHARGED WITH ANY OF THE FOLLOWING DIAGNOSIS: No Plan Discharge Plan: Discharge to home with self care. Follow up with primary care provider within 1 week. Follow up with filler shaker as scheduled. Time Spent: Less than 30 Minutes
== END 2017-09-28 13:09 | disposition home or self-care (01) | DRG 194 ==
LOC: ER 15:52 → EH 20:29 → 3S 22:43
PROVIDERS: ADMIT Internal Medicine; ATTEND Internal Medicine
PROC: 3E0F73Z Introduction of Anti-inflammatory into Respiratory Tract, Via Natural or Artificial Opening (ICD-10-PCS; principal; 2017-09-25)
DX: J18.9 Pneumonia, unspecified organism (principal); J44.1 Chronic obstructive pulmonary disease with (acute) exacerbation; J44.0 Chronic obstructive pulmonary disease with (acute) lower respiratory infection; R18.8 Other ascites; E88.01 Alpha-1-antitrypsin deficiency; E11.9 Type 2 diabetes mellitus without complications; R00.1 Bradycardia, unspecified; I95.9 Hypotension, unspecified; I11.0 Hypertensive heart disease with heart failure; I50.9 Heart failure, unspecified; K21.9 Gastro-esophageal reflux disease without esophagitis; M19.90 Unspecified osteoarthritis, unspecified site; F32.9 Major depressive disorder, single episode, unspecified; D75.82 Heparin induced thrombocytopenia (HIT); K74.60 Unspecified cirrhosis of liver; F17.210 Nicotine dependence, cigarettes, uncomplicated; R09.02 Hypoxemia; I25.2 Old myocardial infarction; Z99.81 Dependence on supplemental oxygen; Z79.52 Long term (current) use of systemic steroids; Z79.899 Other long term (current) drug therapy; Z86.718 Personal history of other venous thrombosis and embolism; Z86.711 Personal history of pulmonary embolism; Z88.6 Allergy status to analgesic agent; Z88.3 Allergy status to other anti-infective agents; Z88.0 Allergy status to penicillin; Z88.8 Allergy status to other drugs, medicaments and biological substances; Z86.14 Personal history of Methicillin resistant Staphylococcus aureus infection; Z87.891 Personal history of nicotine dependence; Z82.49 Family history of ischemic heart disease and other diseases of the circulatory system
CPT/HCPCS: 36415; 71045; 80048; 80053; 80076; 81001; 82533; 82553; 82803; 82962; 83605; 83735; 83880; 84100; 84484; 85025; 85610; 87040; 87086; 93005; 93010; 94640; 94667; 96361; 96365; 96366; 99284; 99291; 99406; J0692; J0696; J1956; J2920; J3490; J7030; J7512; J7620; S0119

== ENCOUNTER 2017-11-09 19:30 | Inpatient (IN) | payer MEDICARE, OTHER ==
[2017-11-09] MEDS ORDERED: ASPIRIN 81 MG TABLET, CHEWABLE PO ONE (19:52)
[2017-11-09] MEDS ORDERED: NORMAL SALINE 1000 ML 1,000 ML IV PRN (19:52)
--- NOTE | 2017-11-09 20:10 | ER Document Report ---
ED General - General Chief Complaint: Chest Pain Stated Complaint: CHEST PAIN Time Seen by Provider: 11/09/17 19:52 Mode of Arrival: Ambulatory Information source: Patient Notes: 62 yr old male hx of copd presents with complaints of chest pain, sob on the left side . pt denies any fevers or chills. admits to sob. pt noted to be hypotensive on arrival. TRAVEL OUTSIDE OF THE [place] IN LAST 30 DAYS: No - HPI Onset: Other Onset/Duration: Persistent Quality of pain: Achy Severity: Mild Pain Level: 1 Associated symptoms: Chest pain, Shortness of breath Exacerbated by: Walking, Coughing Relieved by: Denies Similar symptoms previously: Yes Recently seen / treated by doctor: Yes - Related Data Allergies/Adverse Reactions: Heparin Analogues [Heparin Agents] Allergy (Severe, Verified 11/09/17 19:31) Thrombocytopenia heparinoids [Heparinoids] Allergy (Severe, Verified 11/09/17 19:31) Thrombocytopenia doxycycline Allergy (Intermediate, Verified 11/09/17 19:31) RED FACE AND SWELLING codeine [Codeine] Allergy (Unknown, Verified 11/09/17 19:31) GI upset Penicillins Allergy (Unknown, Verified 11/09/17 19:31) Swelling Past Medical History - Social History Smoking Status: Current Every Day Smoker Cigarette use (# per day): Yes Chew tobacco use (# tins/day): No Smoking Education Provided: No Family History: CAD, Hypertension, Other - CHF - Past Medical History Cardiac Medical History: Reports: Hx Congestive Heart Failure, Hx DVT, Hx Heart Attack, Hx Hypertension - LOW, Hx Pulmonary Embolism Denies: Hx Coronary Artery Disease, Hx Hypercholesterolemia Pulmonary Medical History: Reports: Hx COPD - on 2L nasal cannula., Hx Pneumonia , Hx Respiratory Failure Denies: Hx Asthma, Hx Bronchitis, Hx Sleep Apnea, Hx Tuberculosis Neurological Medical History: Denies: Hx Cerebrovascular Accident, Hx Seizures Endocrine Medical History: Reports: Hx Diabetes Mellitus Type 2 - diet controlled.. 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 Denies: Hx Hepatitis Musculoskeletal Medical History: Reports Hx Arthritis Psychiatric Medical History: Reports: Hx Depression Infectious Medical History: Reports: Hx C-Diff, Hx MRSA. Denies: Hx Hepatitis Past Surgical History: Reports: Other - Left chest tube insertion; lung biopsy. - Immunizations Hx Diphtheria, Pertussis, Tetanus Vaccination: Yes Hx Pneumococcal Vaccination: 04/05/14 Review of Systems - Review of Systems Notes: REVIEW OF SYSTEMS: CONSTITUTIONAL : Denies fever, chills, or sweats. Denies recent illness. EENT: Denies eye, ear, throat, or mouth pain or symptoms. Denies nasal or sinus congestion or discharge. Denies throat, tongue, or mouth swelling or difficulty swallowing. CARDIOVASCULAR: admits ot chest pain RESPIRATORY: admits to shortness of breath GASTROINTESTINAL: Denies abdominal pain or distention. Denies nausea, vomiting , or diarrhea. Denies blood in vomitus, stools, or per rectum. Denies black, tarry stools. Denies constipation. GENITOURINARY: Denies difficulty urinating, painful urination, burning, frequency, blood in urine, or discharge. MUSCULOSKELETAL: Denies back or neck pain or stiffness. Denies joint pain or swelling. SKIN: Denies rash, lesions or sores. HEMATOLOGIC : Denies easy bruising or bleeding. LYMPHATIC: Denies swollen, enlarged glands. NEUROLOGICAL: Denies confusion or altered mental status. Denies passing out or loss of consciousness. Denies dizziness or lightheadedness. Denies headache. Denies weakness or paralysis or loss of use of either side. Denies problems with gait or speech. Denies sensory loss, numbness, or tingling. Denies seizures. PSYCHIATRIC: Denies anxiety or stress. Denies depression, suicidal ideation, or homicidal ideation. ALL OTHER SYSTEMS REVIEWED AND NEGATIVE. Dictation was performed using [facility] voice recognition software PHYSICAL EXAMINATION: GENERAL: Thin male in no significant distress but noted to be hypotensive HEAD: Atraumatic, normocephalic. EYES: Pupils equal round and reactive to light, extraocular movements intact, sclera anicteric, conjunctiva are normal. ENT: Nares patent, oropharynx clear without exudates. Moist mucous membranes. NECK: Normal range of motion, supple without lymphadenopathy LUNGS: Coarse wheezing all throughout on baseline 2 L nasal cannula HEART: Regular rate and rhythm without murmurs ABDOMEN: Soft, nontender, nondistended abdomen. No guarding, no rebound. No masses appreciated. Musculoskeletal: Normal range of motion, no pitting or edema. No cyanosis. NEUROLOGICAL: Cranial nerves grossly intact. Normal speech, normal gait. Normal sensory, motor exams PSYCH: Normal mood, normal affect. SKIN: Warm, Dry, normal turgor, no rashes or lesions noted. Physical Exam - Vital signs Vitals: Resp BP Pulse Ox 21 H 89/46 L 94 11/09/17 19:48 11/09/17 19:48 11/09/17 19:48 Course - Re-evaluation Re-evalutation: 11/09/17 20:09 Patient appears to be at his baseline regarding his respiratory status however he is hypertensive, his episodes of hypotension uncommon for him - Vital Signs Vital signs: Temp Pulse Resp BP Pulse Ox 17 97/66 L 96 11/09/17 21:01 11/09/17 21:01 11/09/17 21:01 - Laboratory Result Diagrams: 11/09/17 20:05 11/09/17 20:50 Laboratory results interpreted by me: 11/09/17 11/09/17 20:05 20:50 MCV 98 H MCH 34.0 H RDW 15.4 H Plt Count 117 L Lymphocytes % 12.7 L Calcium 8.0 L Alkaline Phosphatase 168 H Total Protein 6.1 L Albumin 2.6 L Discharge - Discharge Clinical Impression: COPD exacerbation Hypotension Qualifiers: Hypotension type: unspecified hypotension type Qualified Code(s): I95.9 - Hypotension, unspecified Condition: Fair Disposition: ADMITTED INPATIENT Admitting Provider: Hospitalist Unit Admitted: Telemetry Referrals: ALFA GRANGER NP [Primary Care Provider] - Follow up as needed
[2017-11-09 20:17] LABS: ABSOLUTE EOSINOPHILS # (AUTO) 0.3 10^3/uL (0.0-0.6); ABSOLUTE LYMPHOCYTES (AUTO) 1.1 10^3/uL (0.5-4.7); ABSOLUTE MONOCYTES (AUTO) 0.8 10^3/uL (0.1-1.4); ABSOLUTE NEUT (AUTO) 6.3 10^3/uL (1.7-8.2); BASOPHILS % (AUTO) 0.5 % (0-2); EOSINOPHILS % (AUTO) 3.6 % (0-6); HEMOGLOBIN 15.9 g/dL (13.5-17.0); LYMPHOCYTES % (AUTO) 12.7 % (13-45); MEAN CORPUSCULAR HGB CONC 34.6 g/dL (32.0-36.0); MEAN CORPUSCULAR VOLUME 98 fl (80-97); MONOCYTES % (AUTO) 9.2 % (3-13); PLATELET COUNT 117 10^3/uL (150-450); RED BLOOD COUNT 4.68 10^6/uL (4.35-5.55); RED CELL DISTRIBUTION WIDTH 15.4 % (11.5-14.0); TOTAL CELLS COUNTED % (AUTO) 100 %; WHITE BLOOD COUNT 8.6 10^3/uL (4.0-10.5)
--- NOTE | 2017-11-09 20:26 | RADIOLOGY REPORT (SQ) ---
EXAM DESCRIPTION: CHEST SINGLE VIEW COMPLETED DATE/TIME: 11/09/2017 8:10 pm REASON FOR STUDY: chest pian , hx copd COMPARISON: 09/24/2017 EXAM PARAMETERS: NUMBER OF VIEWS: One view. TECHNIQUE: Single frontal radiographic view of the chest acquired. RADIATION DOSE: NA LIMITATIONS: None. FINDINGS: LUNGS AND PLEURA: No acute opacities, masses or pneumothorax. Similar emphysema and chron ic scarring -interstitial changes. No pleural effusion. MEDIASTINUM AND HILAR STRUCTURES: Stable. HEART AND VASCULAR STRUCTURES: Stable. BONES: No acute findings. HARDWARE: None in the chest. OTHER: No other significant finding. IMPRESSION: NO ACUTE RADIOGRAPHIC FINDING IN THE CHEST. TECHNICAL DOCUMENTATION: JOB ID: [id number] [place]-72 2010 [employer]- All Rights Reserved Reading location - IP/workstation name: [email or web address]
[2017-11-09 21:26] LABS: ALANINE AMINOTRANSFERASE 29 U/L (21-72); ALBUMIN 2.6 g/dL (3.5-5.0); ALKALINE PHOSPHATASE 168 U/L (38-126); ANION GAP 5 (5-19); ASPARTATE AMINO TRANSFERASE 41 U/L (17-59); BILIRUBIN,DIRECT 0.2 mg/dL (0.0-0.4); BILIRUBIN,TOTAL 0.8 mg/dL (0.2-1.3); BLOOD UREA NITROGEN 17 mg/dL (7-20); CARBON DIOXIDE 30 mmol/L (22-30); CHLORIDE 106 mmol/L (98-107); CREATINE KINASE 55 U/L (55-170); GLUCOSE 92 mg/dL (75-110); POTASSIUM 4.2 mmol/L (3.6-5.0); SODIUM 140.8 mmol/L (137-145); TOTAL PROTEIN 6.1 g/dL (6.3-8.2)
[2017-11-09 21:31] LABS: CREATINE KINASE MB 1.01 ng/mL (<4.55)
[2017-11-09 21:43] LABS: TROPONIN I < 0.012 ng/mL
--- NOTE | 2017-11-09 21:51 | EKG REPORT ---
SEVERITY:- BORDERLINE ECG - SINUS RHYTHM PROBABLE LEFT ATRIAL ABNORMALITY : Confirmed by: Stepan Benson 09-Nov-2017 21:49:58
[2017-11-09 22:02] LABS: VENOUS BLOOD BASE EXCESS 3.7 mmol/L; VENOUS BLOOD HCO3 30.5 mmol/L (20-32); VENOUS BLOOD PCO2 53.8 mmHg (35-63); VENOUS BLOOD PH 7.37 (7.30-7.42)
[2017-11-09] MEDS ORDERED: IPRATROPIUM/ALBUTEROL 0.5-2.5 MG/3 ML AMPUL NEB ONE (22:07)
[2017-11-09] MEDS ORDERED: LORAZEPAM INJ 2 MG/1 ML VIAL IV ONE (22:14)
[2017-11-09] MEDS ORDERED: ACETAMINOPHEN 325 MG TABLET PO PRN (22:45)
[2017-11-09] MEDS ORDERED: AZITHROMYCIN 500 MG in DEXTROSE 5%-WATER 250 ML IV ONE (23:00)
[2017-11-09] MEDS ORDERED: AZITHROMYCIN INJ 500 MG VIAL IV PRN (23:08)
[2017-11-09] MEDS ORDERED: METHYLPREDNISOLONE INJ 125 MG/2 ML SDV IV ONE (23:15)
[2017-11-09 23:17] LABS: INTERNATIONAL RATION (INR) 1.09; PARTIAL THROMBOPLASTIN TIME 29.3 SEC (23.5-35.8); PROTHROMBIN TIME 14.7 SEC (11.4-15.4)
--- NOTE | 2017-11-09 23:24 | PDOC H&P ---
History of Present Illness Admission Date/PCP: 11/09/17 22:04 ALFA GRANGER NP Patient complains of: Dyspnea History of Present Illness: CHATO BRAXTON is a 62 year old male medical history of chronic respiratory failure secondary to COPD on 2 L oxygen at home 24 hours a day secondary to COPD with alpha antitrypsin deficiency, also liver cirrhosis secondary to alpha- 1 anti-trypsin deficiency. Comes to the emergency department with 1 day of progressive shortness of breath, cough with whitish and sometimes blackish sputum, right side pleuritic chest pain, denies wheezing. Upon arrival to the facility saturating 94% on 2 L oxygen via nasal cannula. Denies fever, chills, states only time he is cold, denies nausea, vomiting, dizziness, complains of some epigastric abdominal tightness. Denies any changes in his bowel movements and urine. Found hypotensive in the ED 89/46, but it, went to see him after some IV fluids given was 92/76, likely chronic hypotension he is on midodrine. Patient has several admissions to our facility and was last discharged 10/02 with a diagnosis of pneumonia and COPD exacerbation. Patient follows with pulmonary in [place]. Past Medical History Cardiac Medical History: Reports: Congestive Heart Failure, DVT, Myocardial Infarction, Hypertension - LOW, Pulmonary Embolism Denies: Coronary Artery Disease, Hyperlipidema Pulmonary Medical History: Reports: Chronic Obstructive Pulmonary Disease (COPD ) - on 2L nasal cannula., Pneumonia, Respiratory Failure Denies: Asthma, Bronchitis, Sleep Apnea, Tuberculosis Neurological Medical History: Denies: Seizures Endocrine Medical History: Reports: Diabetes Mellitus Type 2 - diet controlled. 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 Social History Smoking Status: Current Every Day Smoker Frequency of Alcohol Use: None Hx Recreational Drug Use: No Drugs: None Hx Prescription Drug Abuse: No Family History Family History: CAD, Hypertension, Other - CHF Parental Family History Reviewed: No Children Family History Reviewed: NA Sibling(s) Family History Reviewed.: NA Medication/Allergy Home Medications: Bumetanide [Bumex 1 mg Tablet] 1 mg PO DAILY 08/14/17 Famotidine [Pepcid 20 mg Tablet] 20 mg PO Q12 08/14/17 Magnesium Oxide [Mag-Ox 400 mg Tablet] 400 mg PO BID 08/14/17 Potassium Chloride [Klor-Con 10 Meq Capsule ER] 10 meq PO TID@0600,1100,1500 Spironolactone [Aldactone] 50 mg PO DAILY 08/14/17 Tamsulosin HCl [Flomax 0.4 mg Cap.sr] 0.4 mg PO QPM 08/14/17 Midodrine HCl [Proamatine 5 mg Tablet] 10 mg PO TID@0600,1100,1500 tablet 08/15 Theophylline Anhydrous [Partha-Dur 300 mg Tab.sr] 300 mg PO DAILY tab.sr.12h Albuterol Sulfate [Ventolin Hfa] 2 puff IH Q4HP PRN 09/25/17 Ipratropium [place] 0.2 mg IH RTQ6 09/25/17 Levalbuterol Tartrate [Xopenex Hfa] 3 ml IH RTQ6HP PRN 09/25/17 Fludrocortisone Acetate [Florinef 0.1 mg Tablet] 0.05 mg PO DAILY #30 tablet 10/10 Prednisone [Deltasone 20 mg Tablet] 40 mg PO DAILY #4 tablet 09/28/17 Propranolol HCl [Inderal 20 mg Tablet] 10 mg PO Q12 #60 tablet 09/28/17 Allergies/Adverse Reactions: Heparin Analogues [Heparin Agents] Allergy (Severe, Verified 11/09/17 19:31) Thrombocytopenia heparinoids [Heparinoids] Allergy (Severe, Verified 11/09/17 19:31) Thrombocytopenia doxycycline Allergy (Intermediate, Verified 11/09/17 19:31) RED FACE AND SWELLING codeine [Codeine] Allergy (Unknown, Verified 11/09/17 19:31) GI upset Penicillins Allergy (Unknown, Verified 11/09/17 19:31) Swelling Review of Systems Review of Systems: As outlined in the HPI, all others negative Physical Exam Vital Signs: Temp Pulse Resp BP Pulse Ox 21 H 93/67 L 95 11/09/17 22:31 11/09/17 22:31 11/09/17 22:31 Additional comments: General appearance: Looks chronically ill, wearing nasal cannula, sating at the bedside, alert and cooperative, and appears to be in mild distress related to dyspnea Head: Normocephalic Eyes: PEERL, EOMI, vision is grossly intact. Ears: External auditory canal and tympanic membranes clear, hearing grossly intact. Nose: No nasal discharge. Throat: Oral cavity and pharynx normal. No inflammation, swelling, exudate or lesions. Neck: Neck supple, nontender without lymphadenopathy, masses or thyromegaly. Cardiac: Normal S1 and S2. No S3, S4 or murmurs. Rhythm is regular. There is mild pedal edema, cyanosis or pallor. Extremities are warm and well perfused. Capillary refill is less than 2 seconds. No carotid bruits. Lungs: Bilateral decreased breath sounds with fine rales, do not appreciate rhonchi or wheezing. Not using accessory muscles. Abdomen: Positive bowel sounds. Soft. Nondistended, nontender. No guarding or rebound. No masses. No hepatosplenomegaly Extremities: No significant deformity or joint abnormality. Peripheral pulses intact. No varicosities. Neurological: Cranial nerves II through XII grossly intact. Strength and sensation symmetric and intact throughout. Reflexes 2+ throughout. Skin: Skin pale, normal texture and turgor with no lesions or eruptions, warm and dry. Psychiatric: The mental examination revealed the patient was oriented to person , place, and time. The patient was able to demonstrate good judgment on recent , without hallucinations, abnormal affect or abnormal behaviors. Results Laboratory Results: 11/09/17 11/09/17 11/09/17 20:05 20:05 20:50 WBC 8.6 Hgb 15.9 Hct 46.0 MCV 98 H MCH 34.0 H RDW 15.4 H Plt Count 117 L Lymphocytes % 12.7 L VBG pH 7.37 VBG pCO2 53.8 VBG HCO3 30.5 Sodium 140.8 Potassium 4.2 Chloride 106 Anion Gap 5 BUN 17 Creatinine 1.09 Est GFR (Non-Af Amer) > 60 Glucose 92 Calcium 8.0 L Total Bilirubin 0.8 Direct Bilirubin 0.2 Neonat Indirect Bili Not Reportable AST 41 ALT 29 Alkaline Phosphatase 168 H Creatine Kinase 55 Total Protein 6.1 L Albumin 2.6 L Impressions: Chest X-Ray 11/09/17 19:52 IMPRESSION: NO ACUTE RADIOGRAPHIC FINDING IN THE CHEST. Assessment & Plan - Diagnosis (1) COPD exacerbation Is this a current diagnosis for this admission?: Yes Plan: Patient comes with progressive shortness of breath for 1 day, he was not hypoxic or hypercapnic in the ED, VBG with a CO2 in a 53 as is around his baseline. The patient on telemetry monitoring. Solu-Medrol IV every 8 hours. IV azithromycin. Continues oxygen via nasal cannula. Pulmonary toilet and incentive spirometry. RT consult. (2) Chronic respiratory failure Is this a current diagnosis for this admission?: Yes Plan: Patient on chronic respiratory failure, 2 L oxygen at home. As per prior assessment. Alpha 1 antitrypsin deficiency. (3) CAD (coronary artery disease) Qualifiers: Coronary Disease-Associated Artery/Lesion type: [place] artery [place] vs. transplanted heart: [place] heart Associated angina: without angina Qualified Code(s): I25.10 - Atherosclerotic heart disease of [place] coronary artery without angina pectoris Is this a current diagnosis for this admission?: Yes Plan: No current cardiac symptomatology (4) Cirrhosis of liver Plan: Liver cirrhosis secondary to alpha 1 antitrypsin deficiency, associated with chronic thrombocytopenia and ascites, patient has had 3 paracentesis in the past. Complains of mild epigastric tightness, abdomen does not look tense, if continue with complaints or recommended ultrasound to see if there is an option this admission. Continue propranolol, spironolactone, potassium replacement. (5) CHF (congestive heart failure) Qualifiers: Heart failure type: unspecified Heart failure chronicity: chronic Qualified Code(s): I50.9 - Heart failure, unspecified (6) Chronic diastolic CHF (congestive heart failure) Is this a current diagnosis for this admission?: Yes Plan: As per last echocardiogram, EF 63%, continue with Bumex. (7) Idiopathic chronic hypotension Is this a current diagnosis for this admission?: Yes Plan: With chronic hypotension on midodrine - Inpatient Certification Based on my medical assessment, after consideration of the patient's comorbidities, presenting symptoms, or acuity I expect that the services needed warrant INPATIENT care.: Yes I certify that my determination is in accordance with my understanding of Medicare's requirements for reasonable and necessary INPATIENT services [42 CFR 412.3e].: Yes Medical Necessity: Significant Comorbidiites Make Outpatient Treatment Too Risky , Need Close Monitoring Due to Risk of Patient Decompensation, Need for Nebulizer Therapy and Monitoring of Response
[2017-11-10] MEDS: METHYLPREDNISOLONE INJ 125 MG/2 ML SDV IV SCH ×3 (05:39→22:04)
[2017-11-10 05:45] LABS: ABSOLUTE LYMPHOCYTES (AUTO) 0.5 10^3/uL (0.5-4.7); ABSOLUTE MONOCYTES (AUTO) 0.1 10^3/uL (0.1-1.4); ABSOLUTE NEUT (AUTO) 3.5 10^3/uL (1.7-8.2); BASOPHILS % (AUTO) 0.1 % (0-2); EOSINOPHILS % (AUTO) 0.8 % (0-6); HEMATOCRIT 42.2 % (37.9-51.0); HEMOGLOBIN 14.7 g/dL (13.5-17.0); LYMPHOCYTES % (AUTO) 11.1 % (13-45); MEAN CORPUSCULAR HEMOGLOBIN 34.2 pg (27.0-33.4); MEAN CORPUSCULAR HGB CONC 34.9 g/dL (32.0-36.0); MEAN CORPUSCULAR VOLUME 98 fl (80-97); MONOCYTES % (AUTO) 1.3 % (3-13); RED BLOOD COUNT 4.29 10^6/uL (4.35-5.55); RED CELL DISTRIBUTION WIDTH 15.2 % (11.5-14.0); SEGMENTED NEUTROPHILS % (AUTO) 86.7 % (42-78); TOTAL CELLS COUNTED % (AUTO) 100 %; WHITE BLOOD COUNT 4.1 10^3/uL (4.0-10.5)
[2017-11-10 05:47] LABS: ANION GAP 6 (5-19); BLOOD UREA NITROGEN 17 mg/dL (7-20); CALCIUM 8.2 mg/dL (8.4-10.2); CARBON DIOXIDE 25 mmol/L (22-30); CHLORIDE 109 mmol/L (98-107); GLUCOSE 99 mg/dL (75-110); PHOSPHORUS 3.2 mg/dL (2.5-4.5); POTASSIUM 4.3 mmol/L (3.6-5.0); SODIUM 140.2 mmol/L (137-145)
[2017-11-10 05:55] LABS: PLATELET COUNT 65 10^3/uL (150-450)
[2017-11-10] MEDS: IPRATROPIUM/ALBUTEROL 0.5-2.5 MG/3 ML AMPUL NEB PRN ×4 (08:24→20:02)
[2017-11-10] MEDS ORDERED: (PENDING PHARMACY ID) (Midodrine Hcl [Midodrine Hcl] 10 MG) PO SCH (11:00)
[2017-11-10] MEDS ORDERED: ALPHA LIPOIC ACID 200 MG PO SCH (11:00)
[2017-11-10] MEDS ORDERED: MIDODRINE HCL 5 MG TABLET PO ONE (11:30)
[2017-11-10] MEDS ORDERED: DEXTROSE 40% GEL 15 GM TUBE X 2 PO PRN (12:35)
[2017-11-10] MEDS ORDERED: GLUCAGON,HUMAN RECOMB 1 MG INJ IM PRN (12:35)
[2017-11-10] MEDS ORDERED: DEXTROSE 40% GEL 15 GM TUBE PO PRN (12:35)
[2017-11-10] MEDS ORDERED: DEXTROSE 50%-WATER SYRINGE 12.5 GM/25 ML DOSE IV PRN (12:35)
[2017-11-10] MEDS ORDERED: DEXTROSE 50%-WATER SYRINGE 25 GM/50 ML DOSE IV PRN (12:35)
--- NOTE | 2017-11-10 12:57 | PDOC PROGRESS REPORT ---
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 Patient presents with chief complaint of shortness of breath COPD exacerbation. Patient has been on Solu-Medrol, bronchodilators, supplemental oxygen and added Symbicort to his regimen. This morning I seen patient resting in bed. He reports this is shortness of breath subsided except mild chest tightness. Reason For Visit: COPD EXACERBATION, HYPOTENSION Physical Exam Vital Signs: Temp Pulse Resp BP Pulse Ox 97.4 F 82 17 97/56 L 100 11/10/17 12:23 11/10/17 12:23 11/10/17 12:23 11/10/17 12:23 11/10/17 12:23 Intake & Output 11/09/17 11/10/17 11/11/17 06:59 06:59 06:59 Intake Total 5 474 Output Total 0 200 Balance 5 274 Weight 67.3 kg General appearance: PRESENT: mild distress Head exam: PRESENT: atraumatic Eye exam: PRESENT: conjunctiva pink Mouth exam: PRESENT: moist Neck exam: ABSENT: carotid bruit, JVD, lymphadenopathy, thyromegaly Respiratory exam: PRESENT: wheezes, other - Occasional wheezing Cardiovascular exam: PRESENT: RRR. ABSENT: diastolic murmur, rubs, systolic murmur GI/Abdominal exam: PRESENT: normal bowel sounds, soft. ABSENT: distended, guarding, mass, organolmegaly, rebound, tenderness Extremities exam: PRESENT: full ROM. ABSENT: calf tenderness, clubbing, pedal edema Neurological exam: PRESENT: alert, awake, oriented to time, oriented to situation Psychiatric exam: PRESENT: normal mood Results Laboratory Results: 11/10/17 04:51 11/10/17 04:51 11/10/17 11/10/17 04:51 04:51 WBC 4.1 RBC 4.29 L Hgb 14.7 Hct 42.2 MCV 98 H MCH 34.2 H MCHC 34.9 RDW 15.2 H Plt Count 65 L Seg Neutrophils % 86.7 H Lymphocytes % 11.1 L Monocytes % 1.3 L Eosinophils % 0.8 Basophils % 0.1 Absolute Neutrophils 3.5 Absolute Lymphocytes 0.5 Absolute Monocytes 0.1 Absolute Eosinophils 0.0 Absolute Basophils 0.0 Sodium 140.2 Potassium 4.3 Chloride 109 H Carbon Dioxide 25 Anion Gap 6 BUN 17 Creatinine 0.95 Est GFR ( Amer) > 60 Est GFR (Non-Af Amer) > 60 Glucose 99 Calcium 8.2 L Phosphorus 3.2 Magnesium 1.9 11/09/17 23:59 Troponin I < 0.012 Impressions: Chest X-Ray 11/09/17 19:52 IMPRESSION: NO ACUTE RADIOGRAPHIC FINDING IN THE CHEST. Assessment & Plan - Diagnosis (1) COPD exacerbation Is this a current diagnosis for this admission?: Yes Plan: Continue bronchodilators, Solu-Medrol, supplemental oxygen and Symbicort. (2) Idiopathic chronic hypotension Is this a current diagnosis for this admission?: Yes Plan: Continue midodrine (3) Cirrhosis of liver Qualifiers: Hepatic cirrhosis type: other cirrhosis Qualified Code(s): K74.69 - Other cirrhosis of liver Is this a current diagnosis for this admission?: Yes Plan: Since the failure due to alpha-1 antitrypsin deficiency. Currently compensated. (4) Type 2 diabetes mellitus Is this a current diagnosis for this admission?: Yes Plan: Continue sliding scale (5) Chronic diastolic CHF (congestive heart failure) Is this a current diagnosis for this admission?: Yes Plan: Compensated
[2017-11-10] MEDS ORDERED: BUDESONIDE/FORMOTEROL 160-4.5 MCG 60 PUFF/6 GM MDI IH ONE (13:30)
[2017-11-10] MEDS: INSULIN LISPRO 100 UNIT/ML 3 ML VIAL SUBCUT PRN ×2 (13:51→17:51)
[2017-11-10] MEDS: MIDODRINE HCL 5 MG TABLET PO SCH (15:58)
[2017-11-10] MEDS: TAMSULOSIN HCL 0.4 MG CAP.SR.24H PO SCH (17:50)
[2017-11-10] MEDS ORDERED: AZITHROMYCIN 500 MG in DEXTROSE 5%-WATER 250 ML IV SCH (22:00)
[2017-11-10] MEDS: PROPRANOLOL HCL 20 MG TABLET PO SCH (22:10)
[2017-11-11] MEDS: MIDODRINE HCL 5 MG TABLET PO SCH ×3 (06:36→14:14)
[2017-11-11] MEDS: METHYLPREDNISOLONE INJ 125 MG/2 ML SDV IV SCH ×2 (06:37→14:15)
[2017-11-11] MEDS ORDERED: (PENDING PHARMACY ID) (Spironolactone [Aldactone] 50 MG) PO SCH (10:00)
[2017-11-11] MEDS ORDERED: POTASSIUM CHLORIDE 30 MEQ PO SCH (10:00)
[2017-11-11] MEDS ORDERED: VITAMIN E 400 UNIT PO SCH (10:00)
[2017-11-11] MEDS: IPRATROPIUM/ALBUTEROL 0.5-2.5 MG/3 ML AMPUL NEB PRN ×2 (10:03→14:09)
[2017-11-11] MEDS: SPIRONOLACTONE 25 MG TABLET PO SCH (10:42)
[2017-11-11] MEDS: THEOPHYLLINE ANHYDROUS 300 MG TAB.SR.12H PO SCH (10:43)
[2017-11-11] MEDS: FLUDROCORTISONE ACETATE 0.1 MG TABLET PO SCH (10:43)
[2017-11-11] MEDS: VITAMIN E (DL, ACETATE) 400 UNIT CAPSULE PO SCH (10:43)
[2017-11-11] MEDS: POTASSIUM CHLORIDE 10 MEQ CAPSULE.ER PO SCH (10:44)
[2017-11-11] MEDS: PROPRANOLOL HCL 20 MG TABLET PO SCH ×2 (10:44→21:37)
--- NOTE | 2017-11-11 13:13 | PDOC PROGRESS REPORT ---
Subjective Progress Note for:: 11/11/17 Subjective:: I seen patient resting in bed. He is awake alert and oriented. His breathing is getting better. His blood pressure is on the lower side ranging between 92/ 52- 97/50 but this is not new for him his potential discharge for tomorrow. Reason For Visit: COPD EXACERBATION, HYPOTENSION Physical Exam Vital Signs: Temp Pulse Resp BP Pulse Ox 98.3 F 74 13 97/51 L 100 11/11/17 12:13 11/11/17 12:13 11/11/17 12:13 11/11/17 12:13 11/11/17 12:13 Intake & Output 11/10/17 11/11/17 11/12/17 06:59 06:59 06:59 Intake Total 5 2681 355 Output Total 0 400 50 Balance 5 2281 305 Weight 67.3 kg 68.7 kg General appearance: PRESENT: no acute distress Head exam: PRESENT: atraumatic Eye exam: PRESENT: conjunctiva pink Mouth exam: PRESENT: moist Respiratory exam: PRESENT: clear to auscultation porfirio. ABSENT: rales, rhonchi, wheezes Cardiovascular exam: PRESENT: RRR. ABSENT: diastolic murmur, rubs, systolic murmur Extremities exam: PRESENT: full ROM. ABSENT: calf tenderness, clubbing, pedal edema Neurological exam: PRESENT: alert, awake, oriented to time, oriented to situation Psychiatric exam: PRESENT: normal mood Results Laboratory Results: 11/10/17 04:51 11/10/17 04:51 11/09/17 23:59 Troponin I < 0.012 Impressions: Chest X-Ray 11/09/17 19:52 IMPRESSION: NO ACUTE RADIOGRAPHIC FINDING IN THE CHEST. Assessment & Plan - Diagnosis (1) COPD exacerbation Is this a current diagnosis for this admission?: Yes Plan: Continue current regimen. (2) Idiopathic chronic hypotension Is this a current diagnosis for this admission?: Yes Plan: As I mentioned earlier his blood pressure is ranging between 92/50-90 . Patient has been on fludrocortisone and midodrine. (3) Cirrhosis of liver Qualifiers: Hepatic cirrhosis type: other cirrhosis Qualified Code(s): K74.69 - Other cirrhosis of liver Is this a current diagnosis for this admission?: Yes Plan: Since the failure due to alpha-1 antitrypsin deficiency. Currently compensated. (4) Type 2 diabetes mellitus Is this a current diagnosis for this admission?: Yes Plan: Continue sliding scale (5) Chronic diastolic CHF (congestive heart failure) Is this a current diagnosis for this admission?: Yes Plan: Compensated
[2017-11-11] MEDS: TAMSULOSIN HCL 0.4 MG CAP.SR.24H PO SCH (17:54)
[2017-11-11] MEDS: INSULIN LISPRO 100 UNIT/ML 3 ML VIAL SUBCUT PRN (17:55)
[2017-11-11] MEDS ORDERED: AZITHROMYCIN 250 MG TABLET PO SCH (22:00)
[2017-11-12] MEDS: IPRATROPIUM/ALBUTEROL 0.5-2.5 MG/3 ML AMPUL NEB PRN ×2 (01:11→07:56)
[2017-11-12] MEDS: MIDODRINE HCL 5 MG TABLET PO SCH ×2 (06:50→09:57)
--- NOTE | 2017-11-12 09:08 | PDOC DISCHARGE SUMMARY ---
General - Admit/Disc Date/PCP Admission Date/Primary Care Provider: 11/09/17 22:04 ALFA GRANGER NP Discharge Date: 11/12/17 - Discharge Diagnosis (1) Acute exacerbation of chronic obstructive pulmonary disease (COPD) Is this a current diagnosis for this admission?: Yes (2) Idiopathic chronic hypotension Is this a current diagnosis for this admission?: Yes (3) Cirrhosis of liver Is this a current diagnosis for this admission?: Yes (4) Type 2 diabetes mellitus Is this a current diagnosis for this admission?: Yes (5) Chronic diastolic CHF (congestive heart failure) Is this a current diagnosis for this admission?: Yes - Additional Information Resuscitation Status: Full Code Discharge Diet: Diabetic Discharge Activity: Activity As Tolerated Prescriptions: Prednisone [Deltasone 20 mg Tablet] 40 mg PO DAILY #10 tablet Home Medications: Alpha Lipoic Acid [Alpha Lipoic Acid 200 mg Tablet] 200 mg PO TID 11/10/17 Fludrocortisone Acetate [Florinef 0.1 mg Tablet] 0.05 mg PO DAILY 11/10/17 Midodrine HCl 10 mg PO Q8@0600,1100,1500 11/10/17 Omeprazole 40 mg PO DAILY 11/10/17 Potassium Chloride [Klor-Con M10] 30 meq PO DAILY 11/10/17 Propranolol HCl [Inderal 20 mg Tablet] 20 mg PO Q12 11/10/17 Spironolactone [Aldactone] 50 mg PO DAILY 11/10/17 Tamsulosin HCl [Flomax 0.4 mg Cap.sr] 0.4 mg PO DAILY@1800 11/10/17 Theophylline Anhydrous [Partha-Dur 300 mg Tab.sr] 300 mg PO DAILY 11/10/17 Vitamin E [Natural Vitamin E] 400 unit PO DAILY 11/10/17 Prednisone [Deltasone 20 mg Tablet] 40 mg PO DAILY #10 tablet 11/12/17 History of Present Illness History of Present Illness: CHATO BRAXTON is a 62 year old male with medical history of chronic respiratory failure secondary to COPD on 2 L oxygen at home 24 hours a day secondary to COPD with alpha antitrypsin deficiency, also liver cirrhosis secondary to alpha-1 anti-trypsin deficiency. Comes to the emergency department with 1 day of progressive shortness of breath, cough with whitish and sometimes blackish sputum, right side pleuritic chest pain, denies wheezing. Upon arrival to the facility saturating 94% on 2 L oxygen via nasal cannula. Denies fever, chills, states only time he is cold, denies nausea, vomiting, dizziness, complains of some epigastric abdominal tightness. Denies any changes in his bowel movements and urine. Found hypotensive in the ED 89/46, but it, went to see him after some IV fluids given was 92/76, likely chronic hypotension he is on midodrine. Patient has several admissions to our facility and was last discharged 10/02 with a diagnosis of pneumonia and COPD exacerbation. Patient follows with pulmonary in [place]. Hospital Course Hospital Course: This is 62 years old male patient with underlying end-stage lung disease due to COPD caused by alpha-1 antitrypsin deficiency presented with chief complaint of shortness of breath. Patient has been managed as a case of acute exacerbation of COPD with Solu-Medrol, supplemental oxygen and bronchodilator. Patient's shortness of breath relatively subsided and currently patient is at his baseline. This morning I seen patient resting in bed comfortably he is not in pain or distress his vital signs and blood works are within normal limits. I will continue all his home medication and I will send him a dose of prednisone 40 mg p.o. daily for 5 days. Patient needs follow -up with his primary care physician. Physical Exam Vital Signs: Temp Pulse Resp BP Pulse Ox 97.9 F 67 16 92/52 L 90 L 11/12/17 04:46 11/12/17 07:56 11/12/17 07:56 11/12/17 04:46 11/12/17 07:56 Intake & Output 11/11/17 11/12/17 11/13/17 06:59 06:59 06:59 Intake Total 2681 1002 Output Total 400 50 Balance 2281 952 Weight 68.7 kg 70.8 kg General appearance: PRESENT: no acute distress Head exam: PRESENT: atraumatic Mouth exam: PRESENT: moist Neck exam: ABSENT: carotid bruit, JVD, lymphadenopathy, thyromegaly Respiratory exam: PRESENT: clear to auscultation porfirio. ABSENT: rales, rhonchi, wheezes Cardiovascular exam: PRESENT: RRR. ABSENT: diastolic murmur, rubs, systolic murmur GI/Abdominal exam: PRESENT: normal bowel sounds, soft. ABSENT: distended, guarding, mass, organolmegaly, rebound, tenderness Extremities exam: PRESENT: full ROM. ABSENT: calf tenderness, clubbing, pedal edema Neurological exam: PRESENT: alert, awake, oriented to time, oriented to situation Psychiatric exam: PRESENT: normal mood Results Laboratory Results: 11/10/17 04:51 11/10/17 04:51 11/09/17 23:59 Troponin I < 0.012 Impressions: Chest X-Ray 11/09/17 19:52 IMPRESSION: NO ACUTE RADIOGRAPHIC FINDING IN THE CHEST. Qualifiers - * PATIENT BEING DISCHARGED WITH ANY OF THE FOLLOWING DIAGNOSIS: No
[2017-11-12 09:51] VITALS: BP 102/52
[2017-11-12] MEDS: VITAMIN E (DL, ACETATE) 400 UNIT CAPSULE PO SCH (09:57)
[2017-11-12] MEDS: POTASSIUM CHLORIDE 10 MEQ CAPSULE.ER PO SCH (09:57)
[2017-11-12] MEDS: PROPRANOLOL HCL 20 MG TABLET PO SCH (09:58)
[2017-11-12] MEDS: SPIRONOLACTONE 25 MG TABLET PO SCH (09:58)
[2017-11-12] MEDS: THEOPHYLLINE ANHYDROUS 300 MG TAB.SR.12H PO SCH (09:59)
[2017-11-12] MEDS: FLUDROCORTISONE ACETATE 0.1 MG TABLET PO SCH (09:59)
[2017-11-12] MEDS ORDERED: PREDNISONE 20 MG TABLET PO SCH (10:00)
== END 2017-11-12 10:20 | disposition home or self-care (01) | DRG 191 ==
LOC: ER 19:30 → EH 22:04 → 3W 11-10 01:53
PROVIDERS: ADMIT Internal Medicine; ATTEND Internal Medicine
DX: J44.1 Chronic obstructive pulmonary disease with (acute) exacerbation (principal); J96.10 Chronic respiratory failure, unspecified whether with hypoxia or hypercapnia; I50.32 Chronic diastolic (congestive) heart failure; I95.0 Idiopathic hypotension; E88.01 Alpha-1-antitrypsin deficiency; I11.0 Hypertensive heart disease with heart failure; E11.9 Type 2 diabetes mellitus without complications; K74.69 Other cirrhosis of liver; K21.9 Gastro-esophageal reflux disease without esophagitis; R07.9 Chest pain, unspecified; F17.210 Nicotine dependence, cigarettes, uncomplicated; Z99.81 Dependence on supplemental oxygen; Z86.711 Personal history of pulmonary embolism; Z86.718 Personal history of other venous thrombosis and embolism
CPT/HCPCS: 36415; 71045; 80048; 80053; 82550; 82553; 82803; 82962; 83735; 84100; 84484; 85025; 85610; 85730; 87040; 93005; 93010; 94640; 94799; 96360; 96361; 99285; J0456; J1815; J2060; J2930; J3490; J7030; J7060; J7512; J7620

== ENCOUNTER 2017-11-23 21:58 | Emergency (ER) | payer MEDICARE, OTHER ==
--- NOTE | 2017-11-23 22:50 | RADIOLOGY REPORT (SQ) ---
EXAM DESCRIPTION: XR CHEST 1 VIEW COMPLETED DATE/TME: 11/23/2017 22:20 CLINICAL HISTORY: 62 years Male, shortness of breath COMPARISON: 7.18.18 NUMBER OF VIEWS/TECHNIQUE: 1/AP FINDINGS: Increased emphysematous lung volume, moderate chronic interstitial lung markings/fibrosis, small atelectasis or scar in the right mid lung field, blunting/effusion of bilateral costophrenic angles normal cardiac silhouette, atherosclerosis, and intact bony thorax. Stable. IMPRESSION: No significant change. Moderate chronic emphysematous, interstitial lung disease/fibrosis pattern.
[2017-11-24] MEDS ORDERED: IPRATROPIUM/ALBUTEROL 0.5-2.5 MG/3 ML AMPUL NEB ONE ×2 (00:26→00:45)
[2017-11-24] MEDS ORDERED: METHYLPREDNISOLONE INJ 125 MG/2 ML SDV IV ONE (00:26)
--- NOTE | 2017-11-24 00:32 | ER Document Report ---
ED Medical Screen (RME) - General Chief Complaint: Breathing Difficulty Stated Complaint: DIFFICULTY BREATHING Notes: 62-year-old male with a history of antitrypsin deficiency, COPD, liver cirrhosis secondary to this, comes to the emergency department for chief complaint of new onset shortness of breath and productive cough this evening. He is on 2 L nasal cannula at all times. He denies fever, chest pain, denies other complaints. He was discharged within the past month from the hospital after COPD admission. TRAVEL OUTSIDE OF THE [place] IN LAST 30 DAYS: No - Related Data Allergies/Adverse Reactions: Heparin Analogues [Heparin Agents] Allergy (Severe, Verified 11/09/17 19:31) Thrombocytopenia heparinoids [Heparinoids] Allergy (Severe, Verified 11/09/17 19:31) Thrombocytopenia doxycycline Allergy (Intermediate, Verified 11/09/17 19:31) RED FACE AND SWELLING codeine [Codeine] Allergy (Unknown, Verified 11/09/17 19:31) GI upset Penicillins Allergy (Unknown, Verified 11/09/17 19:31) Swelling Past Medical History - Social History Family history: CAD - Past Medical History Cardiac Medical History: Reports: Hx Congestive Heart Failure, Hx DVT, Hx Heart Attack, Hx Hypertension - LOW, Hx Pulmonary Embolism Denies: Hx Coronary Artery Disease, Hx Hypercholesterolemia Pulmonary Medical History: Reports: Hx COPD - on 2L nasal cannula., Hx Pneumonia , Hx Respiratory Failure Denies: Hx Asthma, Hx Bronchitis, Hx Sleep Apnea, Hx Tuberculosis Neurological Medical History: Denies: Hx Cerebrovascular Accident, Hx Seizures Endocrine Medical History: Reports: Hx Diabetes Mellitus Type 2 - diet controlled.. 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 Denies: Hx Hepatitis Musculoskeltal Medical History: Reports Hx Arthritis Psychiatric Medical History: Reports: Hx Depression Infectious Medical History: Reports: Hx C-Diff, Hx MRSA. Denies: Hx Hepatitis Past Surgical History: Reports: Other - Left chest tube insertion; lung biopsy. - Immunizations Hx Diphtheria, Pertussis, Tetanus Vaccination: Yes History of Influenza Vaccine for 01/2017 - 06/2017 Season: Yes Influenza Administration Date for 01/2017 - 06/2017 Season: 01/23/17 Physical Exam - Vital signs Vitals: Temp Pulse Resp BP Pulse Ox 98.4 F 73 19 100/54 L 95 11/23/17 22:06 11/23/17 22:06 11/23/17 22:06 11/23/17 22:06 11/23/17 22:06 - Respiratory Breath sounds: Decreased air movement - Decreased breath sounds throughout, faint expiratory wheeze on the right, no rales or rhonchi. Patient with borderline tachypnea, speaks in full sentences Course - Vital Signs Vital signs: Temp Pulse Resp BP Pulse Ox 98.4 F 73 19 100/54 L 95 11/23/17 22:06 11/23/17 22:06 11/23/17 22:06 11/23/17 22:06 11/23/17 22:06 Doctor's Discharge - Discharge Referrals: ALFA GRANGER NP [Primary Care Provider] - Follow up as needed
[2017-11-24] MEDS ORDERED: METHYLPREDNISOLONE INJ 125 MG/2 ML SDV ONE (00:45)
--- NOTE | 2017-11-24 01:38 | ER Document Report ---
ED Respiratory Problem - General Chief Complaint: Breathing Difficulty Stated Complaint: DIFFICULTY BREATHING Time Seen by Provider: 11/24/17 00:59 Notes: 62-year-old male well-known to the emergency department history of COPD complaining of shortness of breath. Patient states that he became quite anxious because he felt like he was short of breath. Had a pulse oximeter at home that was reading 100% on his 2 L of oxygen. Patient states that he was in a group home once and the daniel next to him was complaining of shortness of breath. States that the nurses came in to check him and his oxygen levels were normal and he was told not to worry about it. Patient states that the daniel ended up dying later and so ever since that time he does not trust pulse oximeter's. States that he is here frequently. If Dr. Palacios was here he would just go ahead and admit him straight up because he knew him quite well. Denies any chest pain. Feels some tightness and shortness of breath at time of presentation to the ER but feels better at this time. Received a breathing treatment up front and feels a little bit better but thinks he needs to go ahead and be admitted at this time. TRAVEL OUTSIDE OF THE [place] IN LAST 30 DAYS: No - HPI Onset: This evening Duration: Better, Continuous Quality of pain: No pain Severity: Mild Pain Level: 0 - Related Data Allergies/Adverse Reactions: Heparin Analogues [Heparin Agents] Allergy (Severe, Verified 18 19:31) Thrombocytopenia heparinoids [Heparinoids] Allergy (Severe, Verified 18 19:31) Thrombocytopenia doxycycline Allergy (Intermediate, Verified 11/09/17 19:31) RED FACE AND SWELLING codeine [Codeine] Allergy (Unknown, Verified 11/09/17 19:31) GI upset Penicillins Allergy (Unknown, Verified 11/09/17 19:31) Swelling Past Medical History - General Information source: Patient, [facility] Records - Social History Smoking Status: Former Smoker Chew tobacco use (# tins/day): No Frequency of alcohol use: None Drug Abuse: None Lives with: Spouse/Significant other Family History: CAD, Hypertension, Other - CHF Patient has suicidal ideation: No Patient has homicidal ideation: No - Past Medical History Cardiac Medical History: Reports: Hx Congestive Heart Failure, Hx DVT, Hx Heart Attack, Hx Hypertension - LOW, Hx Pulmonary Embolism Denies: Hx Coronary Artery Disease, Hx Hypercholesterolemia Pulmonary Medical History: Reports: Hx COPD - on 2L nasal cannula., Hx Pneumonia , Hx Respiratory Failure Denies: Hx Asthma, Hx Bronchitis, Hx Sleep Apnea, Hx Tuberculosis Neurological Medical History: Denies: Hx Cerebrovascular Accident, Hx Seizures Endocrine Medical History: Reports: Hx Diabetes Mellitus Type 2 - diet controlled.. 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 Denies: Hx Hepatitis Musculoskeletal Medical History: Reports Hx Arthritis Psychiatric Medical History: Reports: Hx Depression Infectious Medical History: Reports: Hx C-Diff, Hx MRSA. Denies: Hx Hepatitis Past Surgical History: Reports: Other - Left chest tube insertion; lung biopsy. - Immunizations Hx Diphtheria, Pertussis, Tetanus Vaccination: Yes Hx Pneumococcal Vaccination: 04/05/14 Review of Systems - Review of Systems Notes: Constitutional: denies: Chills, Diaphoresis, Fever, Malaise, Weakness EENT: denies: Eye discharge, Blurred vision, Tearing, Double vision, Nose congestion, Nose discharge, Throat swelling, Mouth pain Cardiovascular: denies: Palpitations, Heart racing, Orthopnea, chest pain. Does complain of tightness in the chest with difficulty breathing. Respiratory: Complains of cough, Wheezing, Shortness of breath Gastrointestinal: denies: Abdominal pain, Diarrhea, Nausea, Vomiting, Black stools Genitourinary: denies: Burning, Dysuria, Discharge, Frequency, Flank pain, Hematuria Musculoskeletal: denies: Joint pain, Joint swelling, Muscle pain, Muscle stiffness, back pain Hematologic/Lymphatic: denies: Anemia, Easy bleeding, Easy bruising, Blood clots Neurological/Psychological: denies: Confusion, Dementia, Depression, Loss of consciousness Physical Exam - Vital signs Vitals: Temp Pulse Resp BP Pulse Ox 98.4 F 73 19 100/54 L 95 11/23/17 22:06 11/23/17 22:06 11/23/17 22:06 11/23/17 22:06 11/23/17 22:06 Interpretation: Normal - General General appearance: Appears well, Alert - HEENT Head: Normocephalic, Atraumatic Eyes: Normal Pupils: PERRL - Respiratory Respiratory status: No respiratory distress Chest status: Nontender Breath sounds: Other - No significant wheeze. No stridor. Faint crackle at the base on the right. Chest palpation: Normal - Cardiovascular Rhythm: Regular Heart sounds: Normal auscultation Murmur: No - Abdominal Inspection: Normal Distension: No distension Bowel sounds: Normal Tenderness: Nontender Organomegaly: No organomegaly - Back Back: Normal, Nontender - Extremities General upper extremity: Normal inspection, Nontender, Normal color, Normal ROM , Normal temperature General lower extremity: Normal inspection, Nontender, Edema - Trace edema bilateral feet and ankles., Normal color, Normal ROM, Normal temperature, Normal weight bearing. No: Tania's sign - Neurological Neuro grossly intact: Yes Cognition: Normal Orientation: AAOx4 Sherrie Coma Scale Eye Opening: Spontaneous Shrerie Coma Scale Verbal: Oriented Sherrie Coma Scale Motor: Obeys Commands [place] Coma Scale Total: 15 Speech: Normal Motor strength normal: LUE, RUE, LLE, RLE Sensory: Normal - Psychological Associated symptoms: Normal affect, Normal mood - Skin Skin Temperature: Warm Skin Moisture: Dry Skin Color: Normal Course - Re-evaluation Re-evalutation: 11/24/17 03:07 Laboratory 11/24/17 11/24/17 11/24/17 01:55 01:55 01:55 WBC 8.4 RBC 4.60 Hgb 15.7 Hct 45.8 MCV 99 H MCH 34.1 H MCHC 34.3 RDW 16.1 H Plt Count 65 L Seg Neutrophils % 75.6 Lymphocytes % 13.1 Monocytes % 8.3 Eosinophils % 2.6 Basophils % 0.4 Absolute Neutrophils 6.3 Absolute Lymphocytes 1.1 Absolute Monocytes 0.7 Absolute Eosinophils 0.2 Absolute Basophils 0.0 Sodium 141.9 Potassium 4.2 Chloride 105 Carbon Dioxide 28 Anion Gap 9 BUN 27 H Creatinine 1.28 H Est GFR ( Amer) > 60 Est GFR (Non-Af Amer) 57 L Glucose 83 Calcium 8.6 Total Bilirubin 1.2 Direct Bilirubin 0.3 Neonat Total Bilirubin Not Reportable Neonat Direct Bilirubin Not Reportable Neonat Indirect Bili Not Reportable AST 43 ALT 43 Alkaline Phosphatase 189 H Creatine Kinase 37 L CK-MB (CK-2) 0.86 Troponin I < 0.012 NT-Pro-B Natriuret Pep 152 Total Protein 6.2 L Albumin 2.8 L Chest X-Ray 11/23/17 22:20 IMPRESSION: No significant change. Moderate chronic emphysematous, interstitial lung disease/fibrosis pattern. 11/24/17 03:17 Patient is sleeping and his heart rate is in the 60s with a normal blood pressure and no audible wheeze with 100% O2 saturation on 2 L of nasal cannula which she is on at all times. Labs look fairly baseline. I have had a long discussion with the patient as well as the patient's with regards to hospital. At this time I do not feel patient requires admission to the hospital. I do realize that patient has severe lung disease and that he may require admission to the hospital in the future however at this time I do not think it is warranted. I am going to advise if patient's symptoms get worse that he get his prescriptions filled which I am going to provide and follow-up with his regular doctor for repeat evaluation. Patient knows that he can always come back if his symptoms are getting worse. Patient verbalized understanding these instructions and patient will be discharged at this time in stable condition. - Vital Signs Vital signs: Temp Pulse Resp BP Pulse Ox 98.4 F 73 20 97/60 L 95 11/23/17 22:06 11/23/17 22:06 11/24/17 02:01 11/24/17 02:01 11/24/17 02:05 - Laboratory Result Diagrams: 11/24/17 01:55 11/24/17 01:55 Laboratory results interpreted by me: 11/24/17 11/24/17 01:55 01:55 MCV 99 H MCH 34.1 H RDW 16.1 H Plt Count 65 L BUN 27 H Creatinine 1.28 H Est GFR (Non-Af Amer) 57 L Alkaline Phosphatase 189 H Creatine Kinase 37 L Total Protein 6.2 L Albumin 2.8 L - EKG Interpretation by Dc EKG shows normal: Sinus rhythm - Heart rate 88. Baseline artifact on EKG causing computer reading to be abnormal and in error. Patient has a normal sinus rhythm. No ST segment elevation or depression. No significant T-wave abnormalities. No significant change from prior. Discharge - Discharge Clinical Impression: Pulmonary fibrosis COPD (chronic obstructive pulmonary disease) Qualifiers: COPD type: unspecified COPD Qualified Code(s): J44.9 - Chronic obstructive pulmonary disease, unspecified Condition: Good Disposition: HOME, SELF-CARE Instructions: Chronic Obstructive Lung Disease ([facility]), Bronchospasm ([facility]) Prescriptions: Levofloxacin [Levaquin 500 mg Tablet] 500 mg PO DAILY #10 tablet Prednisone 60 mg PO DAILY 5 Days #15 tablet Referrals: ALFA GRANGER, MIRROR MAKER [Primary Care Provider] - Follow up as needed
[2017-11-24 02:36] LABS: ABSOLUTE EOSINOPHILS # (AUTO) 0.2 10^3/uL (0.0-0.6); ABSOLUTE LYMPHOCYTES (AUTO) 1.1 10^3/uL (0.5-4.7); ABSOLUTE MONOCYTES (AUTO) 0.7 10^3/uL (0.1-1.4); ABSOLUTE NEUT (AUTO) 6.3 10^3/uL (1.7-8.2); BASOPHILS % (AUTO) 0.4 % (0-2); EOSINOPHILS % (AUTO) 2.6 % (0-6); HEMATOCRIT 45.8 % (37.9-51.0); HEMOGLOBIN 15.7 g/dL (13.5-17.0); LYMPHOCYTES % (AUTO) 13.1 % (13-45); MEAN CORPUSCULAR HEMOGLOBIN 34.1 pg (27.0-33.4); MEAN CORPUSCULAR HGB CONC 34.3 g/dL (32.0-36.0); MEAN CORPUSCULAR VOLUME 99 fl (80-97); MONOCYTES % (AUTO) 8.3 % (3-13); RED CELL DISTRIBUTION WIDTH 16.1 % (11.5-14.0); SEGMENTED NEUTROPHILS % (AUTO) 75.6 % (42-78); TOTAL CELLS COUNTED % (AUTO) 100 %; WHITE BLOOD COUNT 8.4 10^3/uL (4.0-10.5)
[2017-11-24 02:48] LABS: ALANINE AMINOTRANSFERASE 43 U/L (21-72); ALBUMIN 2.8 g/dL (3.5-5.0); ALKALINE PHOSPHATASE 189 U/L (38-126); ANION GAP 9 (5-19); ASPARTATE AMINO TRANSFERASE 43 U/L (17-59); BILIRUBIN,DIRECT 0.3 mg/dL (0.0-0.4); BILIRUBIN,TOTAL 1.2 mg/dL (0.2-1.3); BLOOD UREA NITROGEN 27 mg/dL (7-20); CALCIUM 8.6 mg/dL (8.4-10.2); CARBON DIOXIDE 28 mmol/L (22-30); CHLORIDE 105 mmol/L (98-107); CREATINE KINASE 37 U/L (55-170); GLUCOSE 83 mg/dL (75-110); POTASSIUM 4.2 mmol/L (3.6-5.0); SODIUM 141.9 mmol/L (137-145); TOTAL PROTEIN 6.2 g/dL (6.3-8.2)
[2017-11-24 02:54] LABS: PLATELET COUNT 65 10^3/uL (150-450)
[2017-11-24 02:59] LABS: CREATINE KINASE MB 0.86 ng/mL (<4.55); NT PRO BNP 152 pg/mL (5-900)
[2017-11-24 03:04] LABS: TROPONIN I < 0.012 ng/mL
[2017-11-24 03:31] VITALS: BP 105/69
--- NOTE | 2017-11-24 09:24 | EKG REPORT ---
SEVERITY:- ABNORMAL ECG - SINUS RHYTHM LOW VOLTAGE THROUGHOUT BORDERLINE T ABNORMALITIES, ANT-LAT LEADS : Confirmed by: Stepan Benson 24-Nov-2017 09:22:54
== END 2017-11-24 03:25 | disposition home or self-care (01) ==
LOC: ER 21:58
DX: J84.10 Pulmonary fibrosis, unspecified (principal); J44.9 Chronic obstructive pulmonary disease, unspecified; Z99.81 Dependence on supplemental oxygen; R07.89 Other chest pain; R06.02 Shortness of breath; I10 Essential (primary) hypertension; Z87.01 Personal history of pneumonia (recurrent); Z87.891 Personal history of nicotine dependence; Z86.711 Personal history of pulmonary embolism; Z86.718 Personal history of other venous thrombosis and embolism; Z88.8 Allergy status to other drugs, medicaments and biological substances; Z88.1 Allergy status to other antibiotic agents; Z88.5 Allergy status to narcotic agent; Z88.0 Allergy status to penicillin
CPT/HCPCS: 93005; 94640; 99285; 36415; 82553; 82550; 85025; 80053; 84484; 83880; 71045; 93010; A9270; J7620

== ENCOUNTER 2017-12-18 21:06 | Emergency (ER) | payer MEDICARE, OTHER ==
[2017-12-18 22:06] LABS: ABSOLUTE BASOPHILS # (AUTO) 0.1 10^3/uL (0.0-0.2); ABSOLUTE EOSINOPHILS # (AUTO) 0.3 10^3/uL (0.0-0.6); ABSOLUTE LYMPHOCYTES (AUTO) 1.3 10^3/uL (0.5-4.7); ABSOLUTE MONOCYTES (AUTO) 1.2 10^3/uL (0.1-1.4); ABSOLUTE NEUT (AUTO) 7.2 10^3/uL (1.7-8.2); BASOPHILS % (AUTO) 0.7 % (0-2); EOSINOPHILS % (AUTO) 3.1 % (0-6); HEMATOCRIT 46.3 % (37.9-51.0); HEMOGLOBIN 16.4 g/dL (13.5-17.0); LYMPHOCYTES % (AUTO) 13.4 % (13-45); MEAN CORPUSCULAR HEMOGLOBIN 34.8 pg (27.0-33.4); MEAN CORPUSCULAR HGB CONC 35.4 g/dL (32.0-36.0); MEAN CORPUSCULAR VOLUME 98 fl (80-97); MONOCYTES % (AUTO) 11.6 % (3-13); PLATELET COUNT 130 10^3/uL (150-450); RED BLOOD COUNT 4.71 10^6/uL (4.35-5.55); RED CELL DISTRIBUTION WIDTH 14.9 % (11.5-14.0); SEGMENTED NEUTROPHILS % (AUTO) 71.2 % (42-78); TOTAL CELLS COUNTED % (AUTO) 100 %; WHITE BLOOD COUNT 10.1 10^3/uL (4.0-10.5)
[2017-12-18 22:24] LABS: ALANINE AMINOTRANSFERASE 30 U/L (21-72); ALBUMIN 2.8 g/dL (3.5-5.0); ALKALINE PHOSPHATASE 194 U/L (38-126); ANION GAP 9 (5-19); ASPARTATE AMINO TRANSFERASE 45 U/L (17-59); BILIRUBIN,DIRECT 0.4 mg/dL (0.0-0.4); BILIRUBIN,TOTAL 0.9 mg/dL (0.2-1.3); BLOOD UREA NITROGEN 16 mg/dL (7-20); CALCIUM 8.7 mg/dL (8.4-10.2); CARBON DIOXIDE 27 mmol/L (22-30); CHLORIDE 105 mmol/L (98-107); GLUCOSE 62 mg/dL (75-110); POTASSIUM 3.9 mmol/L (3.6-5.0); SODIUM 141.2 mmol/L (137-145); TOTAL PROTEIN 6.2 g/dL (6.3-8.2)
--- NOTE | 2017-12-18 22:35 | RADIOLOGY REPORT (SQ) ---
EXAM DESCRIPTION: CHEST SINGLE VIEW COMPLETED DATE/TIME: 12/18/2017 10:13 pm REASON FOR STUDY: sob COMPARISON: 11/23/2017 TECHNIQUE: Single frontal radiographic view of the chest acquired. NUMBER OF VIEWS: One view. LIMITATIONS: None. FINDINGS: LUNGS AND PLEURA: No pneumothorax. Similar chronic interstitial changes -scarring-emphyse ma. No consolidation or pleural effusion. MEDIASTINUM AND HILAR STRUCTURES: Stable. HEART AND VASCULAR STRUCTURES: Stable. BONES: No acute findings. HARDWARE: None in the chest. OTHER: No other significant finding. IMPRESSION: NO ACUTE FINDINGS. TECHNICAL DOCUMENTATION: JOB ID: [id number] [employer]- All Rights Reserved Reading location - IP/workstation name: [email or web address]
[2017-12-18] MEDS ORDERED: IPRATROPIUM/ALBUTEROL 0.5-2.5 MG/3 ML AMPUL NEB ONE (23:02)
[2017-12-18] MEDS ORDERED: PREDNISONE 20 MG TABLET PO ONE (23:03)
--- NOTE | 2017-12-18 23:07 | ER Document Report ---
ED General - General Chief Complaint: Breathing Difficulty Stated Complaint: BREATHING DIFFICULTY Time Seen by Provider: 12/18/17 21:37 Notes: Patient is 62-year-old male with a past medical history of alpha-1 antitrypsin deficiency with associated COPD with chronic oxygen dependence at 2 L by nasal cannula at all times, liver failure, who presents with shortness of breath Patient states that for the past several days he has been feeling increasing like he has been having progressively worsening shortness of breath similar to when he has had COPD exacerbations in the past. He has been using his home nebulizer treatments without significant improvement. Notes that his symptoms are worsened with exertion. Home treatments do somewhat improve his symptoms. He has not contacted his general doctor or precast molder regarding these concerns. He denies any distinct chest pain, nausea, vomiting, fever or constitutional symptoms. TRAVEL OUTSIDE OF THE [place] IN LAST 30 DAYS: No - Related Data Allergies/Adverse Reactions: Heparin Analogues [Heparin Agents] Allergy (Severe, Verified 11/09/17 19:31) Thrombocytopenia heparinoids [Heparinoids] Allergy (Severe, Verified 11/09/17 19:31) Thrombocytopenia doxycycline Allergy (Intermediate, Verified 11/09/17 19:31) RED FACE AND SWELLING codeine [Codeine] Allergy (Unknown, Verified 11/09/17 19:31) GI upset Penicillins Allergy (Unknown, Verified 11/09/17 19:31) Swelling Past Medical History - General Information source: Patient - Social History Smoking Status: Former Smoker Chew tobacco use (# tins/day): No Frequency of alcohol use: None Drug Abuse: None Lives with: Spouse/Significant other Family History: CAD, Hypertension, Other - CHF Patient has suicidal ideation: No Patient has homicidal ideation: No - Past Medical History Cardiac Medical History: Reports: Hx Congestive Heart Failure, Hx DVT, Hx Heart Attack, Hx Hypertension - LOW, Hx Pulmonary Embolism Denies: Hx Coronary Artery Disease, Hx Hypercholesterolemia Pulmonary Medical History: Reports: Hx COPD - on 2L nasal cannula., Hx Pneumonia , Hx Respiratory Failure Denies: Hx Asthma, Hx Bronchitis, Hx Sleep Apnea, Hx Tuberculosis Neurological Medical History: Denies: Hx Cerebrovascular Accident, Hx Seizures Endocrine Medical History: Reports: Hx Diabetes Mellitus Type 2 - diet controlled.. 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 Denies: Hx Hepatitis Musculoskeletal Medical History: Reports Hx Arthritis Psychiatric Medical History: Reports: Hx Depression Infectious Medical History: Reports: Hx C-Diff, Hx MRSA. Denies: Hx Hepatitis Past Surgical History: Reports: Other - Left chest tube insertion; lung biopsy. - Immunizations Hx Diphtheria, Pertussis, Tetanus Vaccination: Yes Hx Pneumococcal Vaccination: 04/05/14 Review of Systems - Review of Systems Notes: Constitutional: Negative for fever. HENT: Negative for sore throat. Eyes: Negative for visual changes. Cardiovascular: Negative for chest pain. Respiratory: Positive for shortness of breath. Gastrointestinal: Negative for abdominal pain, vomiting or diarrhea. Genitourinary: Negative for dysuria. Musculoskeletal: Negative for back pain. Skin: Negative for rash. Neurological: Negative for headaches, weakness or numbness. 10 point ROS negative except as marked above and in HPI. Physical Exam - Vital signs Vitals: Resp 20 12/18/17 21:34 Interpretation: Hypotensive - Baseline for patient Notes: PHYSICAL EXAMINATION: GENERAL: Well-appearing, well-nourished and in no acute distress. HEAD: Atraumatic, normocephalic. EYES: Pupils equal round and reactive to light, extraocular movements intact, sclera anicteric, conjunctiva are normal. ENT: nares patent, oropharynx clear without exudates. Moist mucous membranes. NECK: Normal range of motion, supple without lymphadenopathy LUNGS: Breath sounds clear to auscultation bilaterally and equal. Minimal faint expiratory wheezing in all lung medellin HEART: Regular rate and rhythm without murmurs ABDOMEN: Soft, nontender, normoactive bowel sounds. No guarding, no rebound. No masses appreciated. EXTREMITIES: Normal range of motion, no pitting or edema. No cyanosis. NEUROLOGICAL: No focal neurological deficits. Moves all extremities spontaneously and on command. PSYCH: Normal mood, normal affect. SKIN: Warm, Dry, normal turgor, no rashes or lesions noted. Course - Re-evaluation Re-evalutation: 12/18/17 23:03 Patient presents with a mild exacerbation of their baseline COPD. Minimal to no wheezing at time of presentation but vitals do not show significant hypoxemia or tachypnea. Patient saturating 96% on his normal 2 L by nasal cannula. Patient has chronic hypotension and this is unchanged today. No retractions. Chest x-ray without evidence of an acute pneumonia. Laboratories do not show acute kidney injury or significant leukocytosis. Patient able to ambulate without any respiratory distress. Based on patient's overall reassuring assessment, I believe they are stable for outpatient management with steroids and oral antibiotics. Patient has nebulizers at home. I do not suspect an acute alternative pathology at this time based on history and exam including acute pulmonary embolus, ACS, pneumothorax, or aortic dissection. At this time will discharge with return precautions and follow-up recommendations. Verbal discharge instructions given a the bedside and opportunity for questions given. Medication warnings reviewed. Patient is in agreement with this plan and has verbalized understanding of return precautions and the need for primary care follow-up in the next 24-72 hours. - Vital Signs Vital signs: Temp Pulse Resp BP Pulse Ox 98.7 F 18 98/60 L 96 12/19/17 00:01 12/19/17 00:01 12/19/17 00:01 12/19/17 00:01 - Laboratory Result Diagrams: 12/18/17 21:48 12/18/17 21:48 Laboratory results interpreted by me: 12/18/17 12/18/17 21:48 21:48 MCV 98 H MCH 34.8 H RDW 14.9 H Plt Count 130 L Glucose 62 L Alkaline Phosphatase 194 H Total Protein 6.2 L Albumin 2.8 L - Diagnostic Test Radiology reviewed: Image reviewed, Reports reviewed Radiology results interpreted by me: 12/18/17 23:05 Chest x-ray: No acute infiltrate or pneumothorax - EKG Interpretation by Me Additional EKG results interpreted by me: 12/18/17 23:06 Sinus rhythm. Rate 89. No ST elevations or depressions. QTC is 429. Discharge - Discharge Clinical Impression: Shortness of breath, COPD exacerbation Condition: Stable Disposition: HOME, SELF-CARE Additional Instructions: You were seen for a COPD exacerbation. Your symptoms improved with treatment here in the emergency department. However, it is very important that you return to the emergency department immediately if you began to have worsening difficulty breathing that does not respond to your normal home nebulizers. You are also being sent home on a five-day course of steroids that you should start taking tomorrow. Please also follow closely with your primary care physician. You should return to emergency department if you develop fever greater than 101 , persistent cough, persistent vomiting, pass out, or any other symptoms that are concerning to you. Prescriptions: Prednisone [Deltasone 20 mg Tablet] 3 tab PO DAILY 5 Days tablet Referrals: ALFA GRANGER NP [Primary Care Provider] - Follow up as needed
[2017-12-19 00:15] VITALS: BP 98/60
--- NOTE | 2017-12-19 07:46 | EKG REPORT ---
SEVERITY:- ABNORMAL ECG - SINUS RHYTHM BORDERLINE RIGHT AXIS DEVIATION BORDERLINE R WAVE PROGRESSION, ANTERIOR LEADS : Confirmed by: Tamir Baron MD 19-Dec-2017 07:46:05
== END 2017-12-19 00:16 | disposition home or self-care (01) ==
LOC: ER 21:06
DX: J44.1 Chronic obstructive pulmonary disease with (acute) exacerbation (principal); E88.01 Alpha-1-antitrypsin deficiency; K72.90 Hepatic failure, unspecified without coma; Z99.81 Dependence on supplemental oxygen; R06.02 Shortness of breath; I95.9 Hypotension, unspecified; I25.2 Old myocardial infarction; E11.9 Type 2 diabetes mellitus without complications; Z88.8 Allergy status to other drugs, medicaments and biological substances; Z88.1 Allergy status to other antibiotic agents; Z88.5 Allergy status to narcotic agent; Z88.0 Allergy status to penicillin; Z87.891 Personal history of nicotine dependence; Z86.711 Personal history of pulmonary embolism; Z86.718 Personal history of other venous thrombosis and embolism
CPT/HCPCS: 93005; 94640; 99285; 36415; 85025; 80053; 84484; 71045; 93010; A9270 ×2; J7512; J7620

== ENCOUNTER 2017-12-27 02:04 | Emergency (ER) | payer MEDICARE, OTHER ==
[2017-12-27] MEDS ORDERED: MORPHINE SULFATE 10 MG/ML INJ IV ONE (02:29)
[2017-12-27] MEDS ORDERED: ONDANSETRON HCL INJ/PF 4 MG/2 ML SDV IV ONE (02:29)
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
[2017-12-27 02:50] LABS: ABSOLUTE BASOPHILS # (AUTO) 0.1 10^3/uL (0.0-0.2); ABSOLUTE EOSINOPHILS # (AUTO) 0.4 10^3/uL (0.0-0.6); ABSOLUTE LYMPHOCYTES (AUTO) 1.3 10^3/uL (0.5-4.7); ABSOLUTE MONOCYTES (AUTO) 0.9 10^3/uL (0.1-1.4); ABSOLUTE NEUT (AUTO) 9.1 10^3/uL (1.7-8.2); BASOPHILS % (AUTO) 0.4 % (0-2); EOSINOPHILS % (AUTO) 3.1 % (0-6); HEMATOCRIT 47.9 % (37.9-51.0); HEMOGLOBIN 16.6 g/dL (13.5-17.0); LYMPHOCYTES % (AUTO) 10.7 % (13-45); MEAN CORPUSCULAR HEMOGLOBIN 34.2 pg (27.0-33.4); MEAN CORPUSCULAR HGB CONC 34.7 g/dL (32.0-36.0); MEAN CORPUSCULAR VOLUME 99 fl (80-97); MONOCYTES % (AUTO) 8.1 % (3-13); RED BLOOD COUNT 4.86 10^6/uL (4.35-5.55); RED CELL DISTRIBUTION WIDTH 15.4 % (11.5-14.0); SEGMENTED NEUTROPHILS % (AUTO) 77.7 % (42-78); TOTAL CELLS COUNTED % (AUTO) 100 %; WHITE BLOOD COUNT 11.8 10^3/uL (4.0-10.5)
[2017-12-27 03:01] LABS: VENOUS BLOOD BASE EXCESS 0.2 mmol/L; VENOUS BLOOD HCO3 25.6 mmol/L (20-32); VENOUS BLOOD PCO2 44.4 mmHg (35-63); VENOUS BLOOD PH 7.38 (7.30-7.42)
[2017-12-27 03:05] LABS: ALANINE AMINOTRANSFERASE 38 U/L (21-72); ALBUMIN 2.8 g/dL (3.5-5.0); ALKALINE PHOSPHATASE 180 U/L (38-126); ANION GAP 9 (5-19); ASPARTATE AMINO TRANSFERASE 34 U/L (17-59); BILIRUBIN,DIRECT 0.3 mg/dL (0.0-0.4); BILIRUBIN,TOTAL 1.1 mg/dL (0.2-1.3); BLOOD UREA NITROGEN 20 mg/dL (7-20); CALCIUM 8.2 mg/dL (8.4-10.2); CARBON DIOXIDE 27 mmol/L (22-30); CHLORIDE 104 mmol/L (98-107); GLUCOSE 92 mg/dL (75-110); POTASSIUM 4.1 mmol/L (3.6-5.0); TOTAL PROTEIN 6.3 g/dL (6.3-8.2)
[2017-12-27 03:19] LABS: NT PRO BNP 152 pg/mL (5-900)
[2017-12-27 03:21] LABS: TROPONIN I < 0.012 ng/mL
[2017-12-27 03:25] LABS: PLATELET COUNT 95 10^3/uL (150-450)
--- NOTE | 2017-12-27 03:54 | RADIOLOGY REPORT (SQ) ---
EXAM DESCRIPTION: XR CHEST 1 VIEW COMPLETED DATE/TME: 12/27/2017 02:29 CLINICAL HISTORY: shortness of breath COMPARISON: 12/18/2017 FINDINGS: Single frontal view of the chest. Atherosclerotic calcification of the thoracic aorta. Cardiac silhouette is not enlarged. No consolidation, pneumothorax, or large pleural effusion. No acute osseous abnormalities. Leads overlie the chest. Chronic interstitial changes and hyperinflation are stable. Upper abdominal soft tissues are unremarkable. IMPRESSION: 1. No acute pulmonary process identified. Findings compatible with obstructive lung disease.
[2017-12-27 04:50] VITALS: BP 131/82
[2017-12-27] MEDS ORDERED: HYDROCODONE/ACETAMINOPHEN 5-325 MG (6 TAB/ER DISP) PO PRN (04:50)
[2017-12-27] MEDS ORDERED: ONDANSETRON ODT 4 MG TAB (6 TAB/ER DISP) PO PRN (04:50)
--- NOTE | 2017-12-27 07:24 | EKG REPORT ---
SEVERITY:- BORDERLINE ECG - SINUS RHYTHM LOW VOLTAGE WITH RIGHT AXIS DEVIATION BORDERLINE T ABNORMALITIES, ANT-LAT LEADS : Confirmed by: Tamir Baron MD 27-Dec-2017 07:23:34
== END 2017-12-27 05:00 | disposition home or self-care (01) ==
LOC: ER 02:04
DX: K42.9 Umbilical hernia without obstruction or gangrene (principal); J96.11 Chronic respiratory failure with hypoxia; E88.01 Alpha-1-antitrypsin deficiency; J44.9 Chronic obstructive pulmonary disease, unspecified; K74.69 Other cirrhosis of liver; Z99.81 Dependence on supplemental oxygen; R11.0 Nausea; I10 Essential (primary) hypertension; I25.2 Old myocardial infarction; E11.9 Type 2 diabetes mellitus without complications; Z88.8 Allergy status to other drugs, medicaments and biological substances; Z88.1 Allergy status to other antibiotic agents; Z88.5 Allergy status to narcotic agent; Z88.0 Allergy status to penicillin
CPT/HCPCS: 93005; 99285; 96374; 96375; 36415; 83605; 85025; 80053; 84484; 82803; 83880; 71045; 93010; J2270; J2405; A9270 ×2

== ENCOUNTER 2018-01-05 23:04 | Emergency (ER) | payer MEDICARE, OTHER ==
[2018-01-05] MEDS ORDERED: IPRATROPIUM/ALBUTEROL 0.5-2.5 MG/3 ML AMPUL NEB ONE (23:33)
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
[2018-01-06 00:22] LABS: HEMATOCRIT 47.3 % (37.9-51.0); HEMOGLOBIN 16.4 g/dL (13.5-17.0); MEAN CORPUSCULAR HEMOGLOBIN 34.3 pg (27.0-33.4); MEAN CORPUSCULAR HGB CONC 34.8 g/dL (32.0-36.0); MEAN CORPUSCULAR VOLUME 99 fl (80-97); PLATELET COUNT 110 10^3/uL (150-450); RED BLOOD COUNT 4.79 10^6/uL (4.35-5.55); RED CELL DISTRIBUTION WIDTH 15.3 % (11.5-14.0); WHITE BLOOD COUNT 10.9 10^3/uL (4.0-10.5)
[2018-01-06 00:38] LABS: ALANINE AMINOTRANSFERASE 39 U/L (21-72); ALBUMIN 2.9 g/dL (3.5-5.0); ALKALINE PHOSPHATASE 179 U/L (38-126); ANION GAP 5 (5-19); ASPARTATE AMINO TRANSFERASE 35 U/L (17-59); BILIRUBIN,DIRECT 0.4 mg/dL (0.0-0.4); BILIRUBIN,TOTAL 1.6 mg/dL (0.2-1.3); BLOOD UREA NITROGEN 15 mg/dL (7-20); CALCIUM 8.5 mg/dL (8.4-10.2); CARBON DIOXIDE 28 mmol/L (22-30); CHLORIDE 104 mmol/L (98-107); GLUCOSE 66 mg/dL (75-110); POTASSIUM 4.7 mmol/L (3.6-5.0); TOTAL PROTEIN 6.4 g/dL (6.3-8.2)
[2018-01-06] MEDS: IPRATROPIUM/ALBUTEROL 0.5-2.5 MG/3 ML AMPUL NEB SCH ×3 (04:53→11:01)
[2018-01-06] MEDS ORDERED: (PENDING PHARMACY ID) (Midodrine Hcl [Midodrine Hcl] 10 MG) PO SCH (06:00)
[2018-01-06] MEDS ORDERED: LANSOPRAZOLE 30 MG TAB.RAP.DR PO SCH (06:00)
[2018-01-06] MEDS: MIDODRINE HCL 5 MG TABLET PO SCH ×2 (06:18→11:35)
[2018-01-06] MEDS ORDERED: (PENDING PHARMACY ID) (Spironolactone [Aldactone] 50 MG) PO SCH (10:00)
[2018-01-06] MEDS ORDERED: PREDNISONE 5 MG TABLET PO SCH (10:00)
[2018-01-06] MEDS ORDERED: SPIRONOLACTONE 25 MG TABLET PO SCH (10:00)
[2018-01-06] MEDS ORDERED: FLUDROCORTISONE ACETATE 0.1 MG TABLET PO SCH (10:00)
[2018-01-06] MEDS ORDERED: THEOPHYLLINE ANHYDROUS 300 MG TAB.SR.12H PO SCH (10:00)
[2018-01-06] MEDS ORDERED: PROPRANOLOL HCL 20 MG TABLET PO SCH (10:00)
[2018-01-06] MEDS ORDERED: VITAMIN E 400 UNIT PO SCH (10:00)
[2018-01-06] MEDS ORDERED: POTASSIUM CHLORIDE 30 MEQ PO SCH (10:00)
[2018-01-06] MEDS ORDERED: ALPHA LIPOIC ACID 200 MG PO SCH (10:00)
[2018-01-06] MEDS ORDERED: VITAMIN E (DL, ACETATE) 400 UNIT CAPSULE PO SCH (10:00)
[2018-01-06] MEDS ORDERED: POTASSIUM CHLORIDE 10 MEQ CAPSULE.ER PO SCH (10:00)
[2018-01-06 12:33] VITALS: BP 94/58
[2018-01-06] MEDS ORDERED: TAMSULOSIN HCL 0.4 MG CAP.SR.24H PO SCH (18:00)
--- NOTE | 2018-01-06 23:53 | EKG REPORT ---
SEVERITY:- BORDERLINE ECG - SINUS RHYTHM LOW VOLTAGE WITH RIGHT AXIS DEVIATION BORDERLINE R WAVE PROGRESSION, ANTERIOR LEADS : Confirmed by: Stepan Benson 06-Jan-2018 23:53:25
== END 2018-01-06 12:34 | disposition home or self-care (01) ==
LOC: ER 23:04
DX: J44.9 Chronic obstructive pulmonary disease, unspecified (principal); R09.02 Hypoxemia; F41.0 Panic disorder [episodic paroxysmal anxiety]; I10 Essential (primary) hypertension; E11.9 Type 2 diabetes mellitus without complications; Z99.81 Dependence on supplemental oxygen
CPT/HCPCS: 93005; 94640 ×2; 99285; 36415; 85027; 80053; 84484; 71045; 93010; A9270 ×3; J3490

== ENCOUNTER 2018-01-16 01:45 | Inpatient (IN) | payer MEDICARE, OTHER ==
[2018-01-16] MEDS ORDERED: NORMAL SALINE 250 ML IV ONE (03:07)
[2018-01-16 03:15] LABS: ABSOLUTE EOSINOPHILS # (AUTO) 0.5 10^3/uL (0.0-0.6); ABSOLUTE LYMPHOCYTES (AUTO) 1.2 10^3/uL (0.5-4.7); ABSOLUTE MONOCYTES (AUTO) 0.8 10^3/uL (0.1-1.4); ABSOLUTE NEUT (AUTO) 4.7 10^3/uL (1.7-8.2); BASOPHILS % (AUTO) 0.6 % (0-2); EOSINOPHILS % (AUTO) 6.7 % (0-6); HEMATOCRIT 45.5 % (37.9-51.0); HEMOGLOBIN 15.7 g/dL (13.5-17.0); LYMPHOCYTES % (AUTO) 17.2 % (13-45); MEAN CORPUSCULAR HEMOGLOBIN 34.2 pg (27.0-33.4); MEAN CORPUSCULAR HGB CONC 34.5 g/dL (32.0-36.0); MEAN CORPUSCULAR VOLUME 99 fl (80-97); MONOCYTES % (AUTO) 10.5 % (3-13); PLATELET COUNT 120 10^3/uL (150-450); RED CELL DISTRIBUTION WIDTH 15.3 % (11.5-14.0); TOTAL CELLS COUNTED % (AUTO) 100 %; WHITE BLOOD COUNT 7.2 10^3/uL (4.0-10.5)
[2018-01-16 03:34] LABS: ALANINE AMINOTRANSFERASE 28 U/L (21-72); ALBUMIN 2.6 g/dL (3.5-5.0); ALKALINE PHOSPHATASE 190 U/L (38-126); ASPARTATE AMINO TRANSFERASE 32 U/L (17-59); BILIRUBIN,DIRECT 0.7 mg/dL (0.0-0.4); BILIRUBIN,TOTAL 1.4 mg/dL (0.2-1.3); BLOOD UREA NITROGEN 14 mg/dL (7-20); CALCIUM 8.3 mg/dL (8.4-10.2); CARBON DIOXIDE 32 mmol/L (22-30); CHLORIDE 103 mmol/L (98-107); GLUCOSE 89 mg/dL (75-110); POTASSIUM 3.8 mmol/L (3.6-5.0)
[2018-01-16 03:39] LABS: SODIUM 137.3 mmol/L (137-145)
--- NOTE | 2018-01-16 03:52 | RADIOLOGY REPORT (SQ) ---
EXAM DESCRIPTION: XR CHEST 1 VIEW COMPLETED DATE/TME: 01/16/2018 03:07 CLINICAL HISTORY: dyspnea COMPARISON: 01/05/2018 FINDINGS: Single frontal view of the chest. Atherosclerotic calcification of the thoracic aorta. Cardiac silhouette is not enlarged. No consolidation, pneumothorax, or large pleural effusion. No acute osseous abnormalities. Leads overlie the chest. Chronic interstitial changes and hyperinflation are stable. Upper abdominal soft tissues are unremarkable. IMPRESSION: 1. No acute pulmonary process identified. Findings compatible with obstructive lung disease.
[2018-01-16 03:54] LABS: ANION GAP 2 (5-19)
[2018-01-16] MEDS ORDERED: NORMAL SALINE 500 ML IV ONE (04:13)
[2018-01-16] MEDS ORDERED: ALBUTEROL SULFATE 0.083% NEB 2.5 MG/3 ML AMPUL NEB ONE (04:14)
--- NOTE | 2018-01-16 05:34 | ER Document Report ---
ED General <DUFFYMERT - Last Filed: 01/16/18 07:35> - General TRAVEL OUTSIDE OF THE [place] IN LAST 30 DAYS: No <GAURAV BURNS - Last Filed: 01/17/18 06:05> - General Chief Complaint: Chest Pain Stated Complaint: CHEST PAIN Time Seen by Provider: 01/16/18 02:54 Notes: Patient is a 62-year-old male well known to ED with a history of alpha-1 antitrypsin deficiency who presents with complaint of pain into his lungs and feeling just "unwell". 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 He says that his breathing feels a little worse than usual. He denies any fevers. He says he has been coughing up a lot more mucus than usual. No vomiting. No coughing up blood. No other complaints at this time. Patient says tonight he noticed that when he put on his pulse oximeter that his heart rate was very fast. This is atypical for him as his heart rate is usually normal. He then checked his blood pressure unless his blood pressure was low and therefore came to the ER. (GAURAV BURNS) - Related Data Allergies/Adverse Reactions: Heparin Analogues [Heparin Agents] Allergy (Severe, Verified 01/06/18 11:10) Thrombocytopenia heparinoids [Heparinoids] Allergy (Severe, Verified 01/06/18 11:10) Thrombocytopenia doxycycline Allergy (Intermediate, Verified 01/06/18 11:10) RED FACE AND SWELLING codeine [Codeine] Allergy (Unknown, Verified 01/06/18 11:10) GI upset Penicillins Allergy (Unknown, Verified 01/06/18 11:10) Swelling Past Medical History - Social History Smoking Status: Never Smoker Frequency of alcohol use: None Drug Abuse: None Family History: CAD, Hypertension, Other - CHF Patient has suicidal ideation: No Patient has homicidal ideation: No - Past Medical History Cardiac Medical History: Reports: Hx Congestive Heart Failure, Hx DVT, Hx Heart Attack, Hx Hypertension - LOW, Hx Pulmonary Embolism Denies: Hx Coronary Artery Disease, Hx Hypercholesterolemia Pulmonary Medical History: Reports: Hx COPD - on 2L nasal cannula., Hx Pneumonia , Hx Respiratory Failure Denies: Hx Asthma, Hx Bronchitis, Hx Sleep Apnea, Hx Tuberculosis Neurological Medical History: Denies: Hx Cerebrovascular Accident, Hx Seizures Endocrine Medical History: Reports: Hx Diabetes Mellitus Type 2 - diet controlled.. 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 Denies: Hx Hepatitis Musculoskeletal Medical History: Reports Hx Arthritis Psychiatric Medical History: Reports: Hx Depression Infectious Medical History: Reports: Hx C-Diff, Hx MRSA. Denies: Hx Hepatitis Past Surgical History: Reports: Hx Cardiac Catheterization, Other - Left chest tube insertion; lung biopsy. - Immunizations Hx Diphtheria, Pertussis, Tetanus Vaccination: Yes Hx Pneumococcal Vaccination: 04/05/14 <GAURAV BURNS - Last Filed: 01/17/18 06:05> Review of Systems <MERT DUFFY - Last Filed: 01/16/18 07:35> <GAURAV BURNS - Last Filed: 01/17/18 06:05> - Review of Systems Notes: My Normal Review Basic REVIEW OF SYSTEMS: CONSTITUTIONAL : Denies fever, chills, or sweats. Denies recent illness. EENT: Denies eye, ear, throat, or mouth pain or symptoms. Denies nasal or sinus congestion. CARDIOVASCULAR: Chest pain that he describes as "pain in my lungs". RESPIRATORY: Difficulty breathing. Coughing. GASTROINTESTINAL: Denies abdominal pain. Denies nausea, vomiting, or diarrhea. Denies constipation. Last BM: GENITOURINARY: Denies difficulty urinating, painful urination, burning, frequency, or blood in urine. MUSCULOSKELETAL: Denies neck or back pain or joint pain or swelling. SKIN: Denies rash or skin lesions NEUROLOGICAL: Denies altered mental status or loss of consciousness. Denies headache. Denies weakness or paralysis or loss of use of either side. Denies problems with gait or speech. Denies sensory or motor loss. ALL OTHER SYSTEMS REVIEWED AND NEGATIVE. (GAURAV BURNS) Physical Exam <MERT DUFFY - Last Filed: 01/16/18 07:35> <GAURAV BURNS - Last Filed: 01/17/18 06:05> - Vital signs Vitals: Temp Pulse BP Pulse Ox 98.1 F 114 H 83/57 L 94 01/16/18 02:19 01/16/18 02:19 01/16/18 02:19 01/16/18 02:19 - Notes Notes: General Appearance: Well nourished, alert, cooperative, no acute distress, no obvious discomfort. Vitals: reviewed, See vital signs table. Head: no swelling or tenderness to the head Eyes: PERRL, EOMI, Conjuctiva clear Mouth: No decreasd moisture Lungs: No wheezing, No rales, No rhonci, No accessory muscle use, good air exchange bilaterally. Heart: Tachycardic rate, Regular rythm, No murmur, no rub Abdomen: Normal BS, soft, No rigidity, some abdominal tenderness palpation diffusely which is chronic. He does have some abdominal distention related to chronic ascites. Extremities: strength 5/5 in all extremities, good pulses in all extremities, no swelling or tenderness in the extremities, no edema. Skin: warm, dry, appropriate color, no rash Neuro: speech clear, oriented x 3, normal affect, responds appropriately to questions. (GAURAV BURNS) Course - Laboratory Result Diagrams: 01/16/18 03:01 01/16/18 03:01 <MERT DUFFY - Last Filed: 01/16/18 07:35> - Laboratory Result Diagrams: 01/16/18 03:01 01/16/18 03:01 <GAURAV BURNS - Last Filed: 01/17/18 06:05> - Re-evaluation Re-evalutation: 01/17/18 06:04 Patient is recurrent low blood pressure with tachycardia. Clinically he looks well. He is not having significant symptoms other than his typical shortness of breath. He said this mild hypotension in the past. I think is mostly related to the fact that he has hypoalbuminemia in relation to his liver failure. Do not see any signs of infection at this time. This time he thinks appropriate to admit the patient to help better regulate his blood pressure and to get him back to his baseline. Dictation of this chart was performed using voice recognition software; therefore, there may be some unintended grammatical errors. (GAURAV BURNS) - Vital Signs Vital signs: Temp Pulse Resp BP Pulse Ox 98.3 F 92 20 84/52 L 97 01/17/18 03:32 01/17/18 03:32 01/17/18 03:32 01/17/18 03:32 01/17/18 03:32 - Laboratory Laboratory results interpreted by me: 01/16/18 01/16/18 01/16/18 03:01 03:01 03:01 MCV 99 H MCH 34.2 H RDW 15.3 H Plt Count 120 L Eosinophils % 6.7 H D-Dimer 3.68 H Carbon Dioxide 32 H Anion Gap 2 L Calcium 8.3 L Total Bilirubin 1.4 H Direct Bilirubin 0.7 H Alkaline Phosphatase 190 H Total Protein 6.0 L Albumin 2.6 L Procedures <MERT DUFFY - Last Filed: 01/16/18 07:35> - Additional Procedures IV insertion Additional Procedures: IV insertion <GAURAV BURNS - Last Filed: 01/17/18 06:05> - Additional Procedures IV insertion Notes: 01/16/18 05:34 Peripheral IV inserted in the right and she will area under ultrasound guidance to the patient having poor peripheral access and needing better access for CT of the chest. 20-gauge 1-3/4 inch Angiocath was used. Dark nonpulsatile blood was retrieved. IV flushed well without resistance. (GAURAV BURNS) Discharge - Discharge Admitting Provider: Hospitalist Unit Admitted: IMCU <MERT DUFFY - Last Filed: 01/16/18 07:35> <GAURAV BURNS - Last Filed: 01/17/18 06:05> - Discharge Clinical Impression: Tachycardia Hypotension Qualifiers: Hypotension type: idiopathic hypotension Qualified Code(s): I95.0 - Idiopathic hypotension Condition: Stable Disposition: ADMITTED INPATIENT
--- NOTE | 2018-01-16 06:18 | RADIOLOGY REPORT (SQ) ---
EXAM DESCRIPTION: CT CHEST ANGIOGRAPHY WITHOUT THEN WITH IV CONTRAST COMPLETED DATE/TME: 01/16/2018 05:10 CLINICAL HISTORY: chest pain, tachycardia COMPARISON: 09/24/2016 TECHNIQUE: CTA of the chest obtained following the uncomplicated intravenous administration of 69 mL Omnipaque 350. 3-D/MIP reformatted images of the chest available for evaluation. DLP: 751.54 mGycm FINDINGS: Chest: Pulmonary arteries: Contrast bolus is adequate.No filling defects identified in the pulmonary arteries to suggest pulmonary embolus. Thyroid:No abnormalities of the visualized thyroid. Great Vessels:Great vessels have normal anatomic configuration. Thoracic Aorta: Atherosclerotic calcification of the thoracic aorta. Heart:No cardiomegaly, significant pericardial effusion, or coronary artery atherosclerosis Lymph Nodes:No enlarged mediastinal lymph nodes identified. Esophagus:No abnormalities of the esophagus identified. Other:No additional findings. Lungs: Diffuse panlobular emphysematous change. Regions of atelectasis or scarring in the medial right lung are stable. No new airspace consolidation identified. Pleura:No pleural effusion or pneumothorax. Trachea/Airways: No acute abnormalities of the trachea. Bones:No destructive osseous lesions. Upper Abdomen: Limited images of the upper abdomen demonstrate nodular contour of the liver with splenomegaly and portal collaterals. Moderate amount of ascites. No abnormalities of visualized liver and adrenal glands. IMPRESSION: 1. No pulmonary embolus identified. 2. Panlobular emphysematous changes are stable. 3. Findings compatible with cirrhosis and portal hypertension with moderate amount of ascites. This exam was performed according to our departmental dose-optimization program, which includes automated exposure control, adjustment of the mA and/or kV according to patient size and/or use of iterative reconstruction technique.
--- NOTE | 2018-01-16 08:47 | EKG REPORT ---
SEVERITY:- BORDERLINE ECG - SINUS TACHYCARDIA RIGHT AXIS DEVIATION BORDERLINE R WAVE PROGRESSION, ANTERIOR LEADS : Confirmed by: Stepan Benson 16-Jan-2018 08:45:51
[2018-01-16] MEDS ORDERED: ENOXAPARIN SODIUM INJ 30 MG/0.3 ML DISP.SYRIN SUBCUT SCH (10:00)
[2018-01-16 10:48] LABS: INTERNATIONAL RATION (INR) 1.05; PROTHROMBIN TIME 14.3 SEC (11.4-15.4)
[2018-01-16] MEDS ORDERED: IPRATROPIUM BROMIDE 0.02% NEB 0.5 MG/2.5 ML AMPUL NEB PRN (12:19)
[2018-01-16] MEDS ORDERED: (PENDING PHARMACY ID) (Spironolactone [Aldactone] 50 MG) PO SCH (12:30)
[2018-01-16] MEDS: PROPRANOLOL HCL 20 MG TABLET PO SCH ×2 (13:02→21:25)
[2018-01-16] MEDS: FUROSEMIDE 20 MG TABLET PO SCH (13:02)
[2018-01-16] MEDS: PREDNISONE 5 MG TABLET PO SCH (13:58)
[2018-01-16] MEDS: IPRATROPIUM/ALBUTEROL 0.5-2.5 MG/3 ML AMPUL NEB PRN ×2 (13:58→19:57)
[2018-01-16] MEDS: DOCUSATE SODIUM 100 MG CAPSULE PO SCH (13:58)
[2018-01-16] MEDS ORDERED: (PENDING PHARMACY ID) (Midodrine Hcl [Midodrine Hcl] 10 MG) PO SCH (14:00)
[2018-01-16] MEDS: SPIRONOLACTONE 25 MG TABLET PO SCH (15:38)
[2018-01-16] MEDS: MIDODRINE HCL 5 MG TABLET PO SCH (17:14)
[2018-01-16] MEDS: FLUDROCORTISONE ACETATE 0.1 MG TABLET PO SCH (17:14)
[2018-01-16] MEDS: POTASSIUM CHLORIDE 10 MEQ CAPSULE.ER PO SCH (17:14)
[2018-01-16] MEDS: TAMSULOSIN HCL 0.4 MG CAP.SR.24H PO SCH (17:15)
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
[2018-01-17] MEDS: IPRATROPIUM/ALBUTEROL 0.5-2.5 MG/3 ML AMPUL NEB PRN ×2 (02:17→12:07)
[2018-01-17] MEDS: MIDODRINE HCL 5 MG TABLET PO SCH ×3 (05:09→17:38)
[2018-01-17 06:55] LABS: HEMATOCRIT 42.5 % (37.9-51.0); HEMOGLOBIN 14.8 g/dL (13.5-17.0); MEAN CORPUSCULAR HEMOGLOBIN 34.3 pg (27.0-33.4); MEAN CORPUSCULAR HGB CONC 34.9 g/dL (32.0-36.0); MEAN CORPUSCULAR VOLUME 98 fl (80-97); PLATELET COUNT 100 10^3/uL (150-450); RED BLOOD COUNT 4.32 10^6/uL (4.35-5.55); RED CELL DISTRIBUTION WIDTH 15.1 % (11.5-14.0); WHITE BLOOD COUNT 6.2 10^3/uL (4.0-10.5)
[2018-01-17 06:59] LABS: INTERNATIONAL RATION (INR) 1.09; PROTHROMBIN TIME 14.7 SEC (11.4-15.4)
[2018-01-17 07:07] LABS: ALANINE AMINOTRANSFERASE 30 U/L (21-72); ALBUMIN 2.4 g/dL (3.5-5.0); ALKALINE PHOSPHATASE 175 U/L (38-126); ASPARTATE AMINO TRANSFERASE 34 U/L (17-59); BILIRUBIN,DIRECT 0.4 mg/dL (0.0-0.4); BLOOD UREA NITROGEN 14 mg/dL (7-20); CALCIUM 8.3 mg/dL (8.4-10.2); GLUCOSE 81 mg/dL (75-110); POTASSIUM 4.1 mmol/L (3.6-5.0); TOTAL PROTEIN 5.6 g/dL (6.3-8.2)
[2018-01-17 07:15] LABS: CARBON DIOXIDE 28 mmol/L (22-30); CHLORIDE 107 mmol/L (98-107); SODIUM 138.9 mmol/L (137-145)
[2018-01-17 07:20] LABS: ANION GAP 4 (5-19)
[2018-01-17] MEDS: PROPRANOLOL HCL 20 MG TABLET PO SCH ×2 (10:13→21:37)
[2018-01-17] MEDS: PREDNISONE 5 MG TABLET PO SCH (10:13)
[2018-01-17] MEDS: FUROSEMIDE 20 MG TABLET PO SCH (10:13)
[2018-01-17] MEDS: POTASSIUM CHLORIDE 10 MEQ CAPSULE.ER PO SCH (10:13)
[2018-01-17] MEDS: FLUDROCORTISONE ACETATE 0.1 MG TABLET PO SCH (10:14)
[2018-01-17] MEDS: SULFAMETHOXAZOLE/TRIMETHOPRIM 800-160 MG TABLET PO SCH ×2 (10:14→17:39)
[2018-01-17] MEDS: SPIRONOLACTONE 25 MG TABLET PO SCH ×2 (10:14→17:38)
[2018-01-17] MEDS: DOCUSATE SODIUM 100 MG CAPSULE PO SCH (10:14)
[2018-01-17] MEDS ORDERED: LIDOCAINE 1% INJ-PF (10 MG/ML) 30 ML SDV ONE (11:09)
--- NOTE | 2018-01-17 12:41 | RADIOLOGY REPORT (SQ) ---
EXAM DESCRIPTION: U/S ABD PARACENTESIS COMPLETED DATE/TIME: 01/17/2018 11:58 am REASON FOR STUDY: ascites COMPARISON None. LIMITATIONS: None. PROCEDURE: After obtaining informed consent, the patient was brought to the ultrasound suite. The p rocedure was performed with the patient on a gurney. Ultrasound was used to identify a prominent poc ket of ascites in the right lower quadrant. An appropriate access site was selected. The patient wa s prepped and draped in usual sterile fashion. The access site was anesthetized with 3.0 mL 1% lido charleen. A Bvvs-O-Ltclaaum needle was advanced into the fluid. After aspiration of fluid the needle, the catheter was advanced off the needle into the fluid. A total of 3,500 mL of cloudy straw fluid w as removed. The patient tolerated the procedure well left the department in satisfactory condition. IMPRESSION: Successful ultrasound-guided paracentesis COMMENT: Patient medication list reviewed: Yes- Quality ID# [id number]:Eligible professional attests to doc umenting in the medical record they obtained, updated, or reviewed the patient's current medications. TECHNICAL DOCUMENTATION: JOB ID: [id number] [employer])- All Rights Reserved Reading location - IP/workstation name: [email or web address]
[2018-01-17] MEDS: LEVALBUTEROL HCL NEB 1.25 MG/3 ML AMPUL NEB PRN ×2 (14:24→20:23)
[2018-01-17] MEDS ORDERED: PREDNISONE 20 MG TABLET PO ONE (16:59)
--- NOTE | 2018-01-17 17:12 | PDOC PROGRESS REPORT ---
Subjective Progress Note for:: 01/17/18 Subjective:: The patient is a 62 year old male with a history of chronic respiratory failure/ COPD (on 2 L home oxygen), cirrhosis with ascites (secondary to alpha-1 antitrypsin deficiency, post multiple paracentesis), PE/DVT (not on anticoagulation at this time) and DM 2 (diet controlled) was was admitted for acute on chronic respiratory failure with hypoxia secondary to COPD exacerbation and symptomatic hypotension. The patient was seen on afternoon rounds following successful paracentesis and removal of 3.5 L of ascites. He is found resting in bed comfortably, lying lateral recumbent on supplemental oxygen at 2lpm. His is present at this time. He tells me that he is feeling very weak and fatigued at present. He does report slight improvement in his respiratory status from time of admission, but continues to have dyspnea with mild exertion. He reports a slightly productive cough and occasional wheezing. He denies fever, chills, chest pain, palpitations and abdominal pain. He does endorse nausea, but without emesis. They have no new questions or concerns at this time. No concerns per nursing. Reason For Visit: ASCITES,COPD Physical Exam Vital Signs: Temp Pulse Resp BP Pulse Ox 97.4 F 81 18 78/49 L 95 01/17/18 16:19 01/17/18 16:19 01/17/18 16:19 01/17/18 16:19 01/17/18 16:19 Intake & Output 01/16/18 01/17/18 01/18/18 06:59 06:59 06:59 Intake Total 342 474 Balance 342 474 Weight 70.9 kg General appearance: PRESENT: no acute distress, cooperative, well-developed, well-nourished, other Head exam: PRESENT: atraumatic, normocephalic Eye exam: PRESENT: conjunctiva pink, EOMI, PERRLA. ABSENT: scleral icterus Ear exam: PRESENT: normal external ear exam Mouth exam: PRESENT: moist, tongue midline Neck exam: ABSENT: carotid bruit, JVD, lymphadenopathy, thyromegaly Respiratory exam: PRESENT: prolonged expiratory phas, rhonchi, symmetrical, unlabored, wheezes. ABSENT: rales Cardiovascular exam: PRESENT: RRR, +S1, +S2. ABSENT: diastolic murmur, rubs, systolic murmur Pulses: PRESENT: normal dorsalis pedis pul Vascular exam: PRESENT: normal capillary refill GI/Abdominal exam: PRESENT: ascites, normal bowel sounds, soft. ABSENT: distended, guarding, mass, organolmegaly, rebound, tenderness Rectal exam: PRESENT: deferred Extremities exam: PRESENT: full ROM. ABSENT: calf tenderness, clubbing, pedal edema Neurological exam: PRESENT: alert, awake, oriented to person, oriented to place , oriented to time, oriented to situation, CN II-XII grossly intact. ABSENT: motor sensory deficit Psychiatric exam: PRESENT: appropriate affect, normal mood. ABSENT: homicidal ideation, suicidal ideation Skin exam: PRESENT: dry, intact, warm. ABSENT: cyanosis, rash Results Laboratory Results: 01/17/18 06:34 01/17/18 06:34 01/17/18 01/17/18 01/17/18 06:34 06:34 06:34 WBC 6.2 RBC 4.32 L Hgb 14.8 Hct 42.5 MCV 98 H MCH 34.3 H MCHC 34.9 RDW 15.1 H Plt Count 100 L Sodium 138.9 Potassium 4.1 Chloride 107 Carbon Dioxide 28 Anion Gap 4 L BUN 14 Creatinine 1.04 Est GFR ( Amer) > 60 Est GFR (Non-Af Amer) > 60 Glucose 81 Calcium 8.3 L Total Bilirubin 1.0 AST 34 ALT 30 Alkaline Phosphatase 175 H Ammonia 37.0 H Total Protein 5.6 L Albumin 2.4 L TSH 01/17/18 06:34 WBC RBC Hgb Hct MCV MCH MCHC RDW Plt Count Sodium Potassium Chloride Carbon Dioxide Anion Gap BUN Creatinine Est GFR ( Amer) Est GFR (Non-Af Amer) Glucose Calcium Total Bilirubin AST ALT Alkaline Phosphatase Ammonia Total Protein Albumin TSH 1.15 01/17/18 06:34 NT-Pro-B Natriuret Pep 266 Impressions: Chest X-Ray 01/16/18 03:07 IMPRESSION: 1. No acute pulmonary process identified. Findings compatible with obstructive lung disease. Chest/Abdomen CTA 01/16/18 05:10 IMPRESSION: 1. No pulmonary embolus identified. 2. Panlobular emphysematous changes are stable. 3. Findings compatible with cirrhosis and portal hypertension with moderate amount of ascites. This exam was performed according to our departmental dose-optimization program, which includes automated exposure control, adjustment of the mA and/or kV according to patient size and/or use of iterative reconstruction technique. Paracentesis Ultrasound 01/17/18 00:00 IMPRESSION: Successful ultrasound-guided paracentesis Assessment & Plan - Diagnosis (1) Acute and chronic respiratory failure with hypoxia Is this a current diagnosis for this admission?: Yes Plan: Secondary to COPD exacerbation and fluid volume overload. Pt was found to have tachycardia (117), tachypnea (28), and increased supplemental oxygen requirement. He is noted to have rhonchi throughout today with an increase in sputum production/ Chest x-ray is benign. CT of the chest is negative for pulmonary embolus, does demonstrate moderate ascites and stable emphysematous changes. The patient was adequately diuresed with IV Lasix yesterday. His home dose lasix and spironolactone are decreased today secondary to hypotension. We will continue supplemental oxygen as needed pain oxygen saturations greater than 88%. Continue as needed nebulizer treatments. Mucinex twice daily. Will start prednisone 60 mg daily (Pt is chronically on florinef and prednisone ; uncertain why he is on both medications. Daily steroid dose is approximately equivalent to 30 mg prednisone daily). (2) Hypotension Qualifiers: Hypotension type: idiopathic hypotension Qualified Code(s): I95.0 - Idiopathic hypotension Is this a current diagnosis for this admission?: Yes Plan: Multifactorial secondary to advanced liver disease and medications for management of ascites. Slightly worse today following paracentesis with removal of 3.5 L. Will provide albumin for temporary blood pressure support following paracentesis. Home dose Lasix and spironolactone are decreased slightly. Providing stress dosed steroids mentioned above. Continue Midodrine. Unfortunately, the patient's hypotension is likely to worsen as his disease advances. Will consult palliative care services for goals discussion. (3) COPD exacerbation Is this a current diagnosis for this admission?: Yes Plan: The patient presents with URI symptoms, increased sputum production, worsening dyspnea on exertion, increased oxygen requirement, tachycardia and tachypnea. Blood cultures have no growth at 24 hours. Sputum cultures are pending. Plan as above; continue as needed nebulizer treatments, Mucinex, and stress dose steroids. The patient was empirically placed on Bactrim for COPD exacerbation concerning for bronchitis; Bactrim was chosen due to multiple antibiotic allergies. Will adjust as cultures result. We will resume the patient's home dose theophylline. (4) Cirrhosis of liver with ascites Is this a current diagnosis for this admission?: Yes Plan: Secondary to advanced liver disease in setting of alpha-1 antitrypsin deficiency. Patient does not see an outpatient cvicu rn recently; denies inpatient referral. He has previously been to [facility] to see specialist who, according to the patient, can do nothing for him. Successful paracentesis today with removal of 3.5 L; will provide albumin 3 Continue home dose propranolol. Have decrease spironolactone and Lasix slightly today; will monitor closely for continued dosages adjustments. Stress dose steroids. Palliative care consultation. (5) Diabetes mellitus type II, controlled Qualifiers: Diabetes mellitus fdc insulin use: without emt intermediate use Diabetes mellitus complication status: with unspecified complications Qualified Code(s) : E11.8 - Type 2 diabetes mellitus with unspecified complications Is this a current diagnosis for this admission?: Yes Plan: Diet controlled. (6) [id number] deficiency Is this a current diagnosis for this admission?: Yes Plan: Plan as above. (7) Tachycardia Is this a current diagnosis for this admission?: Yes Plan: Resolved; secondary to acute worsening of chronic respiratory failure and hypotension. We will continue to monitor on continuous cardiac telemetry. Remaining plan as above. - Time Time Spent with patient: 25-34 minutes Medications reviewed and adjusted accordingly: Yes Anticipated discharge: Home Within: within 48 hours
[2018-01-17] MEDS: TAMSULOSIN HCL 0.4 MG CAP.SR.24H PO SCH (17:38)
[2018-01-17] MEDS: ALBUMIN HUMAN 12.5 GM/50 ML RTUINJ IV SCH ×3 (18:12→19:17)
[2018-01-18] MEDS: MIDODRINE HCL 5 MG TABLET PO SCH ×3 (01:31→15:11)
[2018-01-18] MEDS: LEVALBUTEROL HCL NEB 1.25 MG/3 ML AMPUL NEB PRN ×4 (02:25→20:38)
[2018-01-18 05:38] LABS: HEMATOCRIT 36.7 % (37.9-51.0); HEMOGLOBIN 12.8 g/dL (13.5-17.0); MEAN CORPUSCULAR HEMOGLOBIN 34.5 pg (27.0-33.4); MEAN CORPUSCULAR HGB CONC 34.9 g/dL (32.0-36.0); MEAN CORPUSCULAR VOLUME 99 fl (80-97); RED BLOOD COUNT 3.71 10^6/uL (4.35-5.55); RED CELL DISTRIBUTION WIDTH 15.4 % (11.5-14.0)
[2018-01-18 05:57] LABS: ANION GAP 8 (5-19); BLOOD UREA NITROGEN 17 mg/dL (7-20); CALCIUM 8.3 mg/dL (8.4-10.2); CARBON DIOXIDE 25 mmol/L (22-30); CHLORIDE 105 mmol/L (98-107); GLUCOSE 121 mg/dL (75-110); SODIUM 137.5 mmol/L (137-145)
[2018-01-18 06:01] LABS: PLATELET COUNT 81 10^3/uL (150-450)
[2018-01-18] MEDS: SPIRONOLACTONE 25 MG TABLET PO SCH (10:48)
[2018-01-18] MEDS: PREDNISONE 20 MG TABLET PO SCH (10:48)
[2018-01-18] MEDS: DOCUSATE SODIUM 100 MG CAPSULE PO SCH (10:48)
[2018-01-18] MEDS: POTASSIUM CHLORIDE 10 MEQ CAPSULE.ER PO SCH (10:50)
[2018-01-18] MEDS: PROPRANOLOL HCL 20 MG TABLET PO SCH (10:50)
[2018-01-18] MEDS: FUROSEMIDE 20 MG TABLET PO SCH (10:51)
[2018-01-18] MEDS: THEOPHYLLINE ANHYDROUS 300 MG TAB.SR.12H PO SCH (10:52)
[2018-01-18] MEDS: SULFAMETHOXAZOLE/TRIMETHOPRIM 800-160 MG TABLET PO SCH ×2 (10:52→17:22)
--- NOTE | 2018-01-18 15:32 | PDOC PROGRESS REPORT ---
Subjective Progress Note for:: 01/18/18 Subjective:: The patient is a 62 year old male with a history of chronic respiratory failure/ COPD (on 2 L home oxygen), cirrhosis with ascites (secondary to alpha-1 antitrypsin deficiency, post multiple paracentesis), PE/DVT (not on anticoagulation at this time) and DM 2 (diet controlled) was was admitted for acute on chronic respiratory failure with hypoxia secondary to COPD exacerbation and symptomatic hypotension. The patient was seen on morning rounds. He is found resting in bed comfortably on supplemental oxygen at 2 L/min. He sits up to the edge of the bed and speaks easily in full sentences. His is not present at this time. He continues to feel tired, although does comment that he is feeling improved as compared to yesterday. He notes that he has increased BLE edema today. He continues to have slight improvement in his respiratory status; noting that his wheezing has resolved and his dyspnea on exertion is improved. He denies fever, chills, chest pain, palpitations, orthopnea, abdominal pain nausea and vomiting. We had a long discussion with regard to the difficulty in balancing his medications with regard to hypotension. The patient seems to understand that he is beginning to have difficulty with dosing and side effects. He is agreeable to meeting with palliative care team today but does ask that they come when his is available to participate in the conversation. He has no other questions or concerns at this time. No concerns per nursing. Reason For Visit: ASCITES,COPD Physical Exam Vital Signs: Temp Pulse Resp BP Pulse Ox 97.6 F 80 18 86/43 L 96 01/18/18 11:47 01/18/18 14:25 01/18/18 14:25 01/18/18 11:47 01/18/18 14:25 Intake & Output 01/17/18 01/18/18 01/19/18 06:59 06:59 06:59 Intake Total 342 816 834 Balance 342 816 834 Weight 70.9 kg 69.5 kg General appearance: PRESENT: no acute distress, well-developed, well-nourished Head exam: PRESENT: atraumatic, normocephalic Eye exam: PRESENT: conjunctiva pink, EOMI, PERRLA. ABSENT: scleral icterus Ear exam: PRESENT: normal external ear exam Mouth exam: PRESENT: moist, tongue midline Teeth exam: PRESENT: poor dentation Neck exam: ABSENT: carotid bruit, JVD, lymphadenopathy, thyromegaly Respiratory exam: PRESENT: clear to auscultation porfirio, decreased breath sounds, prolonged expiratory phas, symmetrical, unlabored, other - Supplemental oxygen at 2 L/min. ABSENT: rales, rhonchi, wheezes Cardiovascular exam: PRESENT: RRR. ABSENT: diastolic murmur, rubs, systolic murmur Pulses: PRESENT: normal dorsalis pedis pul Vascular exam: PRESENT: normal capillary refill GI/Abdominal exam: PRESENT: distended, normal bowel sounds, soft. ABSENT: guarding, mass, organolmegaly, rebound, tenderness Rectal exam: PRESENT: deferred Extremities exam: PRESENT: full ROM, pedal edema - +1 pitting. ABSENT: calf tenderness, clubbing Musculoskeletal exam: PRESENT: ambulatory Neurological exam: PRESENT: alert, awake, oriented to person, oriented to place , oriented to time, oriented to situation, CN II-XII grossly intact. ABSENT: motor sensory deficit Psychiatric exam: PRESENT: appropriate affect, normal mood. ABSENT: homicidal ideation, suicidal ideation Skin exam: PRESENT: dry, intact, warm. ABSENT: cyanosis, rash Results Laboratory Results: 01/18/18 04:47 01/18/18 04:47 01/18/18 01/18/18 04:47 04:47 WBC 5.0 RBC 3.71 L Hgb 12.8 L Hct 36.7 L MCV 99 H MCH 34.5 H MCHC 34.9 RDW 15.4 H Plt Count 81 L Sodium 137.5 Potassium 5.0 Chloride 105 Carbon Dioxide 25 Anion Gap 8 BUN 17 Creatinine 1.27 H Est GFR ( Amer) > 60 Est GFR (Non-Af Amer) 57 L Glucose 121 H Calcium 8.3 L 01/17/18 06:34 NT-Pro-B Natriuret Pep 266 Impressions: Chest X-Ray 01/16/18 03:07 IMPRESSION: 1. No acute pulmonary process identified. Findings compatible with obstructive lung disease. Chest/Abdomen CTA 01/16/18 05:10 IMPRESSION: 1. No pulmonary embolus identified. 2. Panlobular emphysematous changes are stable. 3. Findings compatible with cirrhosis and portal hypertension with moderate amount of ascites. This exam was performed according to our departmental dose-optimization program, which includes automated exposure control, adjustment of the mA and/or kV according to patient size and/or use of iterative reconstruction technique. Paracentesis Ultrasound 01/17/18 00:00 IMPRESSION: Successful ultrasound-guided paracentesis Assessment & Plan - Diagnosis (1) Acute and chronic respiratory failure with hypoxia Is this a current diagnosis for this admission?: Yes Plan: Improved; secondary to COPD exacerbation and fluid volume overload. Pt was found to have tachycardia (117), tachypnea (28), and increased supplemental oxygen requirement. He is noted to have rhonchi throughout today with an increase in sputum production/ Chest x-ray is benign. CT of the chest is negative for pulmonary embolus, does demonstrate moderate ascites and stable emphysematous changes. Continue decreased dose of Lasix and spironolactone secondary to hypotension. We will continue supplemental oxygen as needed pain oxygen saturations greater than 88%. Continue as needed nebulizer treatments. Mucinex twice daily. Continue prednisone 60 mg daily (Pt is chronically on florinef and prednisone; uncertain why he is on both medications. Daily steroid dose is approximately equivalent to 30 mg prednisone daily). (2) Hypotension Qualifiers: Hypotension type: idiopathic hypotension Qualified Code(s): I95.0 - Idiopathic hypotension Is this a current diagnosis for this admission?: Yes Plan: Minimal improvement today. Multifactorial secondary to advanced liver disease and medications for management of ascites. Patient was provided albumin x3 yesterday following paracentesis with removal of 3.5 L. W Home dose Lasix and spironolactone have been decreased slightly. Patient denies history of GI bleed or varices; will hold propranolol today, consider resuming at lower dose tomorrow. Providing stress dosed steroids mentioned above. We will increase midodrine dose to 15 mg 3 times daily; scheduled to mirror patient's home medication regiment. Unfortunately, the patient's hypotension is likely to worsen as his disease advances. Will consult palliative care services for goals discussion. (3) COPD exacerbation Is this a current diagnosis for this admission?: Yes Plan: Improved. The patient presents with URI symptoms, increased sputum production, worsening dyspnea on exertion, increased oxygen requirement, tachycardia and tachypnea. Blood cultures have no growth at 48 hours. Sputum cultures are pending. Plan as above; continue as needed nebulizer treatments, Mucinex, and stress dose steroids. The patient was empirically placed on Bactrim for COPD exacerbation concerning for bronchitis; Bactrim was chosen due to multiple antibiotic allergies. Will adjust as cultures result. Continue the patient's home dose theophylline. (4) Cirrhosis of liver with ascites Is this a current diagnosis for this admission?: Yes Plan: Secondary to advanced liver disease in setting of alpha-1 antitrypsin deficiency. Patient does not see an outpatient hat designer recently; denies inpatient referral. He has previously been to [facility] to see specialist who, according to the patient, can do nothing for him. Successful paracentesis yesterday with removal of 3.5 L; he has been provided provide albumin 3 Holding propranolol today. Have decrease spironolactone and Lasix slightly; will monitor closely for continued dosages adjustments. Stress dose steroids. Palliative care consultation. (5) Diabetes mellitus type II, controlled Qualifiers: Diabetes mellitus senior care insulin use: without senior care use Diabetes mellitus complication status: with unspecified complications Qualified Code(s) : E11.8 - Type 2 diabetes mellitus with unspecified complications Is this a current diagnosis for this admission?: Yes Plan: Diet controlled. (6) [id number] deficiency Is this a current diagnosis for this admission?: Yes Plan: Plan as above. (7) Tachycardia Is this a current diagnosis for this admission?: Yes Plan: Resolved; secondary to acute worsening of chronic respiratory failure and hypotension. We will continue to monitor on continuous cardiac telemetry. Remaining plan as above. - Time Time Spent with patient: 25-34 minutes Medications reviewed and adjusted accordingly: Yes Anticipated discharge: Home Within: within 24 hours
[2018-01-18] MEDS: TAMSULOSIN HCL 0.4 MG CAP.SR.24H PO SCH (17:22)
[2018-01-19] MEDS: IPRATROPIUM/ALBUTEROL 0.5-2.5 MG/3 ML AMPUL NEB PRN (04:17)
[2018-01-19 04:43] LABS: PROTHROMBIN TIME 14.8 SEC (11.4-15.4)
[2018-01-19 04:47] LABS: HEMATOCRIT 41.8 % (37.9-51.0); HEMOGLOBIN 14.5 g/dL (13.5-17.0); MEAN CORPUSCULAR HEMOGLOBIN 34.4 pg (27.0-33.4); MEAN CORPUSCULAR HGB CONC 34.8 g/dL (32.0-36.0); MEAN CORPUSCULAR VOLUME 99 fl (80-97); RED BLOOD COUNT 4.23 10^6/uL (4.35-5.55); RED CELL DISTRIBUTION WIDTH 15.3 % (11.5-14.0); WHITE BLOOD COUNT 9.2 10^3/uL (4.0-10.5)
[2018-01-19 04:54] LABS: PLATELET COUNT 87 10^3/uL (150-450)
[2018-01-19 05:04] LABS: ALANINE AMINOTRANSFERASE 28 U/L (21-72); ALBUMIN 3.1 g/dL (3.5-5.0); ALKALINE PHOSPHATASE 172 U/L (38-126); ANION GAP 11 (5-19); ASPARTATE AMINO TRANSFERASE 30 U/L (17-59); BILIRUBIN,DIRECT 0.5 mg/dL (0.0-0.4); BILIRUBIN,TOTAL 0.9 mg/dL (0.2-1.3); BLOOD UREA NITROGEN 18 mg/dL (7-20); CALCIUM 9.3 mg/dL (8.4-10.2); CARBON DIOXIDE 24 mmol/L (22-30); CHLORIDE 103 mmol/L (98-107); GLUCOSE 101 mg/dL (75-110); POTASSIUM 4.6 mmol/L (3.6-5.0); SODIUM 137.5 mmol/L (137-145); TOTAL PROTEIN 6.4 g/dL (6.3-8.2)
[2018-01-19] MEDS: MIDODRINE HCL 5 MG TABLET PO SCH ×2 (07:40→11:12)
[2018-01-19] MEDS: LEVALBUTEROL HCL NEB 1.25 MG/3 ML AMPUL NEB PRN (08:05)
[2018-01-19] MEDS: SPIRONOLACTONE 25 MG TABLET PO SCH (09:58)
[2018-01-19] MEDS: DOCUSATE SODIUM 100 MG CAPSULE PO SCH (09:58)
[2018-01-19] MEDS: PREDNISONE 20 MG TABLET PO SCH (09:58)
[2018-01-19] MEDS: FUROSEMIDE 20 MG TABLET PO SCH (09:59)
[2018-01-19] MEDS: SULFAMETHOXAZOLE/TRIMETHOPRIM 800-160 MG TABLET PO SCH (10:00)
[2018-01-19] MEDS: THEOPHYLLINE ANHYDROUS 300 MG TAB.SR.12H PO SCH (10:00)
[2018-01-19] MEDS: POTASSIUM CHLORIDE 10 MEQ CAPSULE.ER PO SCH (10:44)
[2018-01-19] MEDS ORDERED: POTASSIUM CHLORIDE 10 MEQ CAPSULE.ER PO SCH (11:00)
[2018-01-19 11:16] VITALS: BP 90/64
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
== END 2018-01-19 11:50 | disposition home or self-care (01) | DRG 432 ==
LOC: ER 01:45 → EH 09:05 → 3W 14:45
PROVIDERS: ADMIT Emergency Medicine; ATTEND Emergency Medicine
PROC: 0W9G3ZZ Drainage of Peritoneal Cavity, Percutaneous Approach (ICD-10-PCS; principal; 2018-01-17)
DX: K74.69 Other cirrhosis of liver (principal); J96.21 Acute and chronic respiratory failure with hypoxia; J44.1 Chronic obstructive pulmonary disease with (acute) exacerbation; R18.8 Other ascites; K76.6 Portal hypertension; I95.0 Idiopathic hypotension; E11.9 Type 2 diabetes mellitus without complications; E88.01 Alpha-1-antitrypsin deficiency; I11.0 Hypertensive heart disease with heart failure; I50.9 Heart failure, unspecified; E88.09 Other disorders of plasma-protein metabolism, not elsewhere classified; J40 Bronchitis, not specified as acute or chronic; Z86.711 Personal history of pulmonary embolism; Z86.718 Personal history of other venous thrombosis and embolism; Z88.6 Allergy status to analgesic agent; Z88.0 Allergy status to penicillin; Z88.8 Allergy status to other drugs, medicaments and biological substances; Z86.14 Personal history of Methicillin resistant Staphylococcus aureus infection; Z82.49 Family history of ischemic heart disease and other diseases of the circulatory system; Z79.52 Long term (current) use of systemic steroids; Z99.81 Dependence on supplemental oxygen
CPT/HCPCS: 36415; 49083; 71045; 71275; 80048; 80053; 82140; 82962; 83605; 83880; 84443; 84484; 85025; 85027; 85379; 85610; 87040; 93005; 93010; 94640; 96360; 96361; 99285; J1650; J3490; J7512; J7620; P9047

== ENCOUNTER 2018-01-29 16:43 | Emergency (ER) | payer MEDICARE, OTHER ==
--- NOTE | 2018-01-29 17:25 | ER Document Report ---
ED Medical Screen (RME) - General Chief Complaint: Breathing Difficulty Stated Complaint: DIFFICULTY BREATHING Time Seen by Provider: 01/29/18 17:14 Mode of Arrival: Ambulatory Information source: Patient, Relative, [facility] Records Notes: 62-year-old male with congestive heart failure, COPD on continuous oxygen presents with complaint of worsening shortness of breath that started today. I have greeted and performed a rapid initial assessment of this patient. A comprehensive ED assessment and evaluation of the patient, analysis of test results and completion of medical decision making process we will be contacted by additional ED providers. PHYSICAL EXAMINATION: Vital signs reviewed-afebrile, hypotensive. GENERAL: Ill-appearing. LUNGS: Visually dyspneic, on O2 NEUROLOGICAL: Normal speech, alert, awake Musculoskeletal; 2+ pitting edema TRAVEL OUTSIDE OF THE [place] IN LAST 30 DAYS: No - HPI Onset: This morning Onset/Duration: Gradual, Worse Quality of pain: Other - Abdominal tightness, leg tightness Severity: Mild Associated Symptoms: Nausea, Shortness of breath Exacerbated by: Denies Relieved by: Denies Similar symptoms previously: Yes Recently seen / treated by doctor: No - Related Data Frequency of alcohol use: None Drug Abuse: None Allergies/Adverse Reactions: Heparin Analogues [Heparin Agents] Allergy (Severe, Verified 01/06/18 11:10) Thrombocytopenia heparinoids [Heparinoids] Allergy (Severe, Verified 01/06/18 11:10) Thrombocytopenia doxycycline Allergy (Intermediate, Verified 01/06/18 11:10) RED FACE AND SWELLING codeine [Codeine] Allergy (Unknown, Verified 01/06/18 11:10) GI upset Penicillins Allergy (Unknown, Verified 01/06/18 11:10) Swelling Past Medical History - Social History Family history: CAD - Past Medical History Cardiac Medical History: Reports: Hx Congestive Heart Failure, Hx DVT, Hx Heart Attack, Hx Hypertension - LOW, Hx Pulmonary Embolism Denies: Hx Coronary Artery Disease, Hx Hypercholesterolemia Pulmonary Medical History: Reports: Hx COPD - on 2L nasal cannula., Hx Pneumonia , Hx Respiratory Failure Denies: Hx Asthma, Hx Bronchitis, Hx Sleep Apnea, Hx Tuberculosis Neurological Medical History: Denies: Hx Cerebrovascular Accident, Hx Seizures Endocrine Medical History: Reports: Hx Diabetes Mellitus Type 2 - diet controlled.. 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 Denies: Hx Hepatitis Musculoskeltal Medical History: Reports Hx Arthritis Psychiatric Medical History: Reports: Hx Depression Infectious Medical History: Reports: Hx C-Diff, Hx MRSA. Denies: Hx Hepatitis Past Surgical History: Reports: Hx Cardiac Catheterization, Other - Left chest tube insertion; lung biopsy. - Immunizations Hx Diphtheria, Pertussis, Tetanus Vaccination: Yes History of Influenza Vaccine for 01/2017 - 06/2017 Season: Yes Influenza Administration Date for 01/2017 - 06/2017 Season: 01/23/17 Physical Exam - Vital signs Vitals: Temp Pulse Resp BP Pulse Ox 97.9 F 75 18 93/50 L 95 01/29/18 16:49 01/29/18 16:49 01/29/18 16:49 01/29/18 16:49 01/29/18 16:49 Course - Vital Signs Vital signs: Temp Pulse Resp BP Pulse Ox 97.9 F 75 18 93/50 L 95 01/29/18 16:49 01/29/18 16:49 01/29/18 16:49 01/29/18 16:49 01/29/18 16:49 Doctor's Discharge - Discharge Referrals: ALFA GRANGER NP [Primary Care Provider] - Follow up as needed
[2018-01-29] MEDS ORDERED: BUMETANIDE INJ/PF 1 MG/4 ML SDV IV ONE (17:28)
[2018-01-29 18:33] LABS: ABSOLUTE EOSINOPHILS # (AUTO) 0.3 10^3/uL (0.0-0.6); ABSOLUTE LYMPHOCYTES (AUTO) 1.1 10^3/uL (0.5-4.7); ABSOLUTE MONOCYTES (AUTO) 0.9 10^3/uL (0.1-1.4); ABSOLUTE NEUT (AUTO) 8.3 10^3/uL (1.7-8.2); BASOPHILS % (AUTO) 0.5 % (0-2); EOSINOPHILS % (AUTO) 2.7 % (0-6); HEMATOCRIT 46.2 % (37.9-51.0); LYMPHOCYTES % (AUTO) 10.1 % (13-45); MEAN CORPUSCULAR HEMOGLOBIN 34.6 pg (27.0-33.4); MEAN CORPUSCULAR HGB CONC 34.7 g/dL (32.0-36.0); MEAN CORPUSCULAR VOLUME 100 fl (80-97); MONOCYTES % (AUTO) 8.4 % (3-13); RED BLOOD COUNT 4.62 10^6/uL (4.35-5.55); RED CELL DISTRIBUTION WIDTH 15.7 % (11.5-14.0); SEGMENTED NEUTROPHILS % (AUTO) 78.3 % (42-78); TOTAL CELLS COUNTED % (AUTO) 100 %; WHITE BLOOD COUNT 10.6 10^3/uL (4.0-10.5)
--- NOTE | 2018-01-29 18:48 | RADIOLOGY REPORT (SQ) ---
EXAM DESCRIPTION: CHEST SINGLE VIEW COMPLETED DATE/TIME: 01/29/2018 6:25 pm REASON FOR STUDY: sob COMPARISON: Chest films 01/16/2018, 01/05/2018, 12/27/2017 CT chest 01/16/2018 EXAM PARAMETERS: NUMBER OF VIEWS: One view. TECHNIQUE: Single frontal radiographic view of the chest acquired. RADIATION DOSE: NA LIMITATIONS: None. FINDINGS: LUNGS AND PLEURA: Lungs are hyperinflated and hyperlucent from end-stage obstructive lung disease. Scarring in the right parahilar region is stable compared to the previous exams. No acute infiltrates. No pleural effusions or pneumothorax MEDIASTINUM AND HILAR STRUCTURES: No masses. Contour normal. HEART AND VASCULAR STRUCTURES: Heart normal in size. Normal vasculature. BONES: No acute findings. HARDWARE: None in the chest. OTHER: No other significant finding. IMPRESSION: No acute findings TECHNICAL DOCUMENTATION: JOB ID: [id number] [employer]- All Rights Reserved Reading location - IP/workstation name: [email or web address]
[2018-01-29 18:50] LABS: ALANINE AMINOTRANSFERASE 35 U/L (21-72); ALBUMIN 2.7 g/dL (3.5-5.0); ALKALINE PHOSPHATASE 164 U/L (38-126); ASPARTATE AMINO TRANSFERASE 42 U/L (17-59); BILIRUBIN,DIRECT 0.7 mg/dL (0.0-0.4); BILIRUBIN,TOTAL 1.5 mg/dL (0.2-1.3); BLOOD UREA NITROGEN 19 mg/dL (7-20); GLUCOSE 87 mg/dL (75-110); POTASSIUM 4.7 mmol/L (3.6-5.0); SODIUM 133.4 mmol/L (137-145); TOTAL PROTEIN 5.9 g/dL (6.3-8.2)
--- NOTE | 2018-01-29 18:50 | EKG REPORT ---
SEVERITY:- ABNORMAL ECG - SINUS RHYTHM RIGHT AXIS DEVIATION LOW VOLTAGE THROUGHOUT BORDERLINE R WAVE PROGRESSION, ANTERIOR LEADS BORDERLINE T ABNORMALITIES, ANT-LAT LEADS : Confirmed by: Stepan Benson 29-Jan-2018 18:49:33
--- NOTE | 2018-01-29 18:52 | EKG REPORT ---
SEVERITY:- ABNORMAL ECG - SUPRAVENTRICULAR TACHYCARDIA LOW VOLTAGE THROUGHOUT BORDERLINE T ABNORMALITIES, ANT-LAT LEADS : Confirmed by: Stepan Benson 29-Jan-2018 18:51:14
[2018-01-29 19:01] LABS: NT PRO BNP 200 pg/mL (5-900)
[2018-01-29 19:05] LABS: CARBON DIOXIDE 29 mmol/L (22-30); CHLORIDE 102 mmol/L (98-107)
[2018-01-29 19:06] LABS: TROPONIN I < 0.012 ng/mL
[2018-01-29 19:09] LABS: ANION GAP 5 (5-19)
--- NOTE | 2018-01-29 19:13 | ER Document Report ---
ED General - General Chief Complaint: Breathing Difficulty Stated Complaint: DIFFICULTY BREATHING Time Seen by Provider: 01/29/18 17:14 Mode of Arrival: Ambulatory Information source: Patient Notes: 62-year-old male with a history of congestive heart failure, COPD, cirrhosis with ascites, DM presents emergency department with shortness of breath and wheezing that started today. Patient states that he is on 2 L nasal cannula at home. He does use DuoNeb treatments. He tried a treatment before coming to the emergency department with minimal relief of symptoms. Patient denies being on BiPAP or CPAP at home. Patient denies having any associated chest pain. He denies any recent fever, chills, cough, rhinorrhea, sore throat. TRAVEL OUTSIDE OF THE [place] IN LAST 30 DAYS: No - HPI Onset: Just prior to arrival Onset/Duration: Gradual Quality of pain: No pain Severity: Moderate Associated symptoms: Shortness of breath Exacerbated by: Denies Relieved by: Denies Similar symptoms previously: Yes Recently seen / treated by doctor: No - Related Data Allergies/Adverse Reactions: Heparin Analogues [Heparin Agents] Allergy (Severe, Verified 01/06/18 11:10) Thrombocytopenia heparinoids [Heparinoids] Allergy (Severe, Verified 01/06/18 11:10) Thrombocytopenia doxycycline Allergy (Intermediate, Verified 01/06/18 11:10) RED FACE AND SWELLING codeine [Codeine] Allergy (Unknown, Verified 01/06/18 11:10) GI upset Penicillins Allergy (Unknown, Verified 01/06/18 11:10) Swelling Past Medical History - General Information source: Patient, Relative, [facility] Records - Social History Smoking Status: Former Smoker Frequency of alcohol use: None Drug Abuse: None Family History: CAD, Hypertension, Other - CHF Patient has suicidal ideation: No Patient has homicidal ideation: No - Past Medical History Cardiac Medical History: Reports: Hx Congestive Heart Failure, Hx DVT, Hx Heart Attack, Hx Hypertension - LOW, Hx Pulmonary Embolism Denies: Hx Coronary Artery Disease, Hx Hypercholesterolemia Pulmonary Medical History: Reports: Hx COPD - on 2L nasal cannula., Hx Pneumonia , Hx Respiratory Failure Denies: Hx Asthma, Hx Bronchitis, Hx Sleep Apnea, Hx Tuberculosis Neurological Medical History: Denies: Hx Cerebrovascular Accident, Hx Seizures Endocrine Medical History: Reports: Hx Diabetes Mellitus Type 2 - diet controlled.. 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 Denies: Hx Hepatitis Musculoskeletal Medical History: Reports Hx Arthritis Psychiatric Medical History: Reports: Hx Depression Infectious Medical History: Reports: Hx C-Diff, Hx MRSA. Denies: Hx Hepatitis Past Surgical History: Reports: Hx Cardiac Catheterization, Other - Left chest tube insertion; lung biopsy. - Immunizations Hx Diphtheria, Pertussis, Tetanus Vaccination: Yes Hx Pneumococcal Vaccination: 04/05/14 Review of Systems - Review of Systems Constitutional: No symptoms reported EENT: No symptoms reported Cardiovascular: No symptoms reported Respiratory: Short of breath Gastrointestinal: No symptoms reported Genitourinary: No symptoms reported Musculoskeletal: No symptoms reported Skin: No symptoms reported Neurological/Psychological: No symptoms reported -: Yes All other systems reviewed and negative Physical Exam - Vital signs Vitals: Temp Pulse Resp BP Pulse Ox 97.9 F 75 18 93/50 L 95 01/29/18 16:49 01/29/18 16:49 01/29/18 16:49 01/29/18 16:49 01/29/18 16:49 - Notes Notes: PHYSICAL EXAMINATION: GENERAL: Well-appearing, well-nourished and in no acute distress. HEAD: Atraumatic, normocephalic. EYES: Pupils equal round and reactive to light, extraocular movements intact, sclera anicteric, conjunctiva are normal. ENT: Nares patent, oropharynx clear without exudates. Moist mucous membranes. NECK: Normal range of motion, supple without lymphadenopathy LUNGS: Breath sounds clear to auscultation bilaterally and equal. Mild wheezing. HEART: Regular rate and rhythm without murmurs ABDOMEN: Soft, nontender, nondistended abdomen. No guarding, no rebound. No masses appreciated. Musculoskeletal: Normal range of motion, 2+ pitting edema no cyanosis. NEUROLOGICAL: Cranial nerves grossly intact. Normal speech, normal gait. Normal sensory, motor exams PSYCH: Normal mood, normal affect. SKIN: Warm, Dry, normal turgor, no rashes or lesions noted. Course - Re-evaluation Re-evalutation: 01/29/18 19:13 EKG: Ventricular rate 67, PA interval 131, castration 74, QTc 401, sinus rhythm , right axis deviation. 01/29/18 20:44 On reevaluation, patient states that he is feeling better. Patient states that he is been urinating after the Bumex. Shortness of breath is resolving. Patient had a CTA chest on 01/16/18 that was negative for PE. 01/29/18 20:50 A duoneb treatment and solumedrol were ordered as the patient does have some mild wheezing. Vital signs are remarkable for hypotension. Patient has a history of chronic hypotension. Patient is saturating at 96% on 2L NC. Labs and imaging were obtained. CXR does not show an acute process. Patient says that he' s still on bactrim because he missed a few doses. I told the patient to continue taking the antibiotic as directed. I will start the patient on prednisone. Patient has a follow up appointment with his PCP in 2 days. I instructed him to keep this appointment. I told the patient to return to the ED for worsening symptoms. Patient is agreeable with the plan of care. - Vital Signs Vital signs: Temp Pulse Resp BP Pulse Ox 97.9 F 75 19 100/70 98 01/29/18 16:49 01/29/18 16:49 01/29/18 20:07 01/29/18 20:07 01/29/18 20:07 - Laboratory Result Diagrams: 01/29/18 18:14 01/29/18 18:14 Laboratory results interpreted by me: 01/29/18 01/29/18 18:14 18:14 WBC 10.6 H MCV 100 H MCH 34.6 H RDW 15.7 H Plt Count 97 L Seg Neutrophils % 78.3 H Lymphocytes % 10.1 L Absolute Neutrophils 8.3 H Sodium 133.4 L Creatinine 1.46 H Est GFR ( Amer) 59 L Est GFR (Non-Af Amer) 49 L Calcium 8.0 L Total Bilirubin 1.5 H Direct Bilirubin 0.7 H Alkaline Phosphatase 164 H Total Protein 5.9 L Albumin 2.7 L Discharge - Discharge Clinical Impression: COPD exacerbation Condition: Good Disposition: HOME, SELF-CARE Instructions: Chronic Obstructive Lung Disease ([facility]) Prescriptions: Prednisone 60 mg PO DAILY #15 tablet Referrals: ALFA GRANGER NP [Primary Care Provider] - Follow up as needed
[2018-01-29 19:29] LABS: INTERNATIONAL RATION (INR) 1.13; PROTHROMBIN TIME 15.1 SEC (11.4-15.4)
[2018-01-29 19:45] LABS: PLATELET COUNT 97 10^3/uL (150-450)
[2018-01-29] MEDS ORDERED: IPRATROPIUM/ALBUTEROL 0.5-2.5 MG/3 ML AMPUL NEB ONE (20:22)
[2018-01-29] MEDS ORDERED: METHYLPREDNISOLONE INJ 125 MG/2 ML SDV IV ONE (20:23)
[2018-01-29 21:24] VITALS: BP 94/65
== END 2018-01-29 21:30 | disposition home or self-care (01) ==
LOC: ER 16:43
DX: J44.1 Chronic obstructive pulmonary disease with (acute) exacerbation (principal); I50.9 Heart failure, unspecified; E11.9 Type 2 diabetes mellitus without complications; Z88.6 Allergy status to analgesic agent; Z88.0 Allergy status to penicillin; Z86.718 Personal history of other venous thrombosis and embolism; I25.2 Old myocardial infarction; Z86.711 Personal history of pulmonary embolism; Z86.14 Personal history of Methicillin resistant Staphylococcus aureus infection
CPT/HCPCS: 93005; 94640; 99285; 96374; 96375; 36415; 85025; 85610; 80053; 84484; 83880; 71045; 93010; J3490; J2930; A9270; J7620

== ENCOUNTER 2018-02-06 20:54 | Emergency (ER) | payer MEDICARE, OTHER ==
--- NOTE | 2018-02-06 22:41 | ER Document Report ---
ED General - General Mode of Arrival: Wheelchair Information source: Patient, Relative TRAVEL OUTSIDE OF THE [place] IN LAST 30 DAYS: No <MALCOLM CARTWRIGHT - Last Filed: 02/07/18 06:24> <LUCHO MATA - Last Filed: 02/07/18 07:33> - General Chief Complaint: Abdominal Pain Stated Complaint: ABDOMINAL PAIN Time Seen by Provider: 02/06/18 22:34 - HPI Notes: Patient is a 62-year-old male history of advanced cirrhosis usually receives paracentesis almost on a monthly basis, last reports paracentesis 3 weeks ago, has a history of CHF and COPD and alpha-1 antitrypsin deficiency presents with report of chronic worsening of his umbilical hernia pain and generalized dyspnea. Patient reports no chest pain and states the abdominal discomfort is chronic. He reports his hernia is nonoperative related to his chronic medical condition, and he is able to reduce his hernia. He denies any fever or chills or productive cough or vomiting or constipation or diarrhea or dysuria. He reports no significant skin breakdown. He has had increasing lower extremity edema over the Course of the past 3-4 weeks. The patient states he was recently switched from Lasix to Bumex for the edema. No numbness or paresthesia or focal weakness. No nausea or vomiting. (MALCOLM CARTWRIGHT) - Related Data Allergies/Adverse Reactions: Heparin Analogues [Heparin Agents] Allergy (Severe, Verified 01/06/18 11:10) Thrombocytopenia heparinoids [Heparinoids] Allergy (Severe, Verified 01/06/18 11:10) Thrombocytopenia doxycycline Allergy (Intermediate, Verified 01/06/18 11:10) RED FACE AND SWELLING codeine [Codeine] Allergy (Unknown, Verified 01/06/18 11:10) GI upset Penicillins Allergy (Unknown, Verified 01/06/18 11:10) Swelling Past Medical History - General Information source: Patient - Social History Smoking Status: Former Smoker - Is Frequency of alcohol use: None Drug Abuse: None - patient Lives with: Family Family History: CAD, Hypertension, Other - CHF - Past Medical History Cardiac Medical History: Reports: Hx Congestive Heart Failure, Hx DVT, Hx Heart Attack, Hx Hypertension - LOW, Hx Pulmonary Embolism Denies: Hx Coronary Artery Disease, Hx Hypercholesterolemia Pulmonary Medical History: Reports: Hx COPD - on 2L nasal cannula., Hx Pneumonia , Hx Respiratory Failure Denies: Hx Asthma, Hx Bronchitis, Hx Sleep Apnea, Hx Tuberculosis Neurological Medical History: Denies: Hx Cerebrovascular Accident, Hx Seizures Endocrine Medical History: Reports: Hx Diabetes Mellitus Type 2 - diet controlled.. 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 Denies: Hx Hepatitis Musculoskeletal Medical History: Reports Hx Arthritis Psychiatric Medical History: Reports: Hx Depression Infectious Medical History: Reports: Hx C-Diff, Hx MRSA. Denies: Hx Hepatitis Past Surgical History: Reports: Hx Cardiac Catheterization, Other - Left chest tube insertion; lung biopsy. - Immunizations Hx Diphtheria, Pertussis, Tetanus Vaccination: Yes Hx Pneumococcal Vaccination: 04/05/14 <MALCOLM CARTWRIGHT - Last Filed: 02/07/18 06:24> Review of Systems - Review of Systems -: Yes All other systems reviewed and negative <MALCOLM CARTWRIGHT - Last Filed: 02/07/18 06:24> Physical Exam <MALCOLM CARTWRIGHT - Last Filed: 02/07/18 06:24> <LUCHO MATA - Last Filed: 02/07/18 07:33> - Vital signs Vitals: Temp Pulse Resp BP Pulse Ox 98.1 F 112 H 20 95/58 L 97 02/06/18 21:23 02/06/18 21:23 02/06/18 21:23 02/06/18 21:23 02/06/18 21:23 - Notes Notes: PHYSICAL EXAMINATION: GENERAL: Well-appearing, well-nourished and in no acute distress. HEAD: Atraumatic, normocephalic. EYES: Pupils equal round and reactive to light, extraocular movements intact, sclera anicteric, conjunctiva are normal. ENT: Nares patent, oropharynx clear without exudates. Moist mucous membranes. NECK: Normal range of motion, supple without lymphadenopathy LUNGS: Breath sounds diminished bilaterally, no wheezes rales or rhonchi. HEART: Regular rate and rhythm without murmurs ABDOMEN: Soft, No guarding, no rebound. Patient has an umbilical hernia which is easily reducible with some degree of pain. There is no erythema to the area , but he does localize pain to that location. Musculoskeletal: Normal range of motion. No cyanosis. 3+ pedal edema bilaterally. NEUROLOGICAL: Cranial nerves grossly intact. Normal speech, normal gait. Normal sensory, motor exams. PSYCH: Normal mood, normal affect. SKIN: Warm, Dry, normal turgor, no rashes or lesions noted. No skin breakdown. (MALCOLM CARTWRIGHT) Course - Laboratory Result Diagrams: 02/06/18 23:02 02/06/18 23:02 - EKG Interpretation by Pr EKG shows normal: Sinus rhythm - Transfer of Care Care transferred to following provider: Dr Mata <MALCOLM CARTWRIGHT - Last Filed: 02/07/18 06:24> - Laboratory Result Diagrams: 02/06/18 23:02 02/06/18 23:02 <LUCHO MATA - Last Filed: 02/07/18 07:33> - Re-evaluation Re-evalutation: 02/07/18 01:58 Patient still complaining of abdominal pain. Given the plain film findings suggesting possible ileus versus early bowel obstruction, we will proceed to CT scan. Patient was offered IV pain medication, but only agreed to take a p.o. tramadol. Patient was also given his regular scheduled DuoNeb treatment. 02/07/18 06:24 After DuoNeb treatment, patient had no wheezing and stable vital signs on his usual home 2 L of oxygen. Umbilical hernia is easily reduced with no clinical suggestion for incarceration. CT scan reading is pending. 02/07/18 06:25 I do not feel patient's ascites warrants paracentesis at this time. (MALCOLM CARTWRIGHT) 02/07/18 07:31 Patient was seen and examined, reviewed the CT imaging, the patient did have ascites on exam and on his CT scan, however he was nontender to my exam, low suspicion for spontaneous bacterial peritonitis, the patient did look very well , his blood work was reviewed and unremarkable, CT demonstrated possible ileus, however the patient's been having 1 or multiple bowel movements daily, his CT did look like he had some degree of stool burden, I do not feel the patient needs to be admitted for this, is not having vomiting, and is having normal bowel movements, will advise a laxative, and if his symptoms worsen to return, patient was agreeable to this plan of care. (LUCHO MATA) - Vital Signs Vital signs: Temp Pulse Resp BP Pulse Ox 98.1 F 112 H 20 95/58 L 97 02/06/18 21:23 02/06/18 21:23 02/06/18 21:23 02/06/18 21:23 02/06/18 21:23 - Laboratory Laboratory results interpreted by me: 02/06/18 02/06/18 23:02 23:02 MCV 100 H MCH 34.9 H RDW 15.8 H Plt Count 80 L Lymphocytes % 12.8 L Carbon Dioxide 32 H Est GFR (Non-Af Amer) 58 L Alkaline Phosphatase 213 H Albumin 2.8 L - EKG Interpretation by Me Additional EKG results interpreted by me: 02/07/18 02:00 EKG as interpreted by me showed normal sinus rhythm with ventricular response of 99. There was significant motion artifact. There was no gross evidence for acute CO or ischemia noted. No other significant change from previous EKG reviewed from 01/29/18. (MALCOLM CARTWRIGHT) Discharge <MALCOLM CARTWRIGHT - Last Filed: 02/07/18 06:24> <LUCHO MATA - Last Filed: 02/07/18 07:33> - Discharge Clinical Impression: Umbilical hernia without obstruction and without gangrene Umbilical hernia Qualifiers: Obstruction and gangrene presence: without obstruction or gangrene Qualified Code(s): K42.9 - Umbilical hernia without obstruction or gangrene COPD (chronic obstructive pulmonary disease) Qualifiers: COPD type: unspecified COPD Qualified Code(s): J44.9 - Chronic obstructive pulmonary disease, unspecified Ascites Qualifiers: Ascites type: other type Qualified Code(s): R18.8 - Other ascites Condition: Stable Disposition: HOME, SELF-CARE Instructions: Abdominal Pain ([facility]), Constipation ([facility]) Additional Instructions: PLEASE TAKE EITHER MAGNESIUM CITRATE 1 BOTTLE WITHOUT WITHOUT 4 OUNCES OF GATORADE ONE TIME, OR YOU CAN TAKE MIRALAX THAT IS PRESCRIBED 1 CAPFUL DAILY. IF THIS DOES NOT IMPROVE YOUR SYMPTOMS DO NOT HESITATE TO RETURN TO THE EMERGENCY DEPARTMENT. Please return to the emergency department if you have any worsening, or concern of your symptoms. Please return to the emergency department if you develop chest pain, difficulty breathing, severe abdominal pain, or ongoing vomiting. Please follow-up with your primary care physician in 2-3 days and any other recommended physicians. If prescribed, take all medications as directed. If you have any questions or concerns do not hesitate to return the emergency department for evaluation. Prescriptions: Polyethylene Glycol 3350 [Miralax] 17 gm PO DAILY #238 gm Referrals: ALFA GRANGER NP [Primary Care Provider] - Follow up in 3-5 days
--- NOTE | 2018-02-06 23:28 | RADIOLOGY REPORT (SQ) ---
EXAM DESCRIPTION: XR ABDOMEN SUPINE AND ERECT WITH CHEST (ABD ACUTE SERIES) COMPLETED DATE/TME: 02/06/2018 22:32 CLINICAL HISTORY: 62 years Male ,dyspnea, abd pain COMPARISON: 01/16/2018. TECHNIQUE: Frontal view chest x-ray and two views of the abdomen. FINDINGS: Pulmonary hyperinflation consistent with COPD. Linear scarring or atelectasis in the right midlung. There is mild dilatation of small bowel which may reflect ileus or developing obstruction. No evidence of free intraperitoneal air. Blunting of the costophrenic angles likely related to scarring. Small amount of fluid is not excluded. IMPRESSION: Mild distention of loops of small bowel which may reflect ileus versus developing obstruction Pulmonary hyperinflation with areas of chronic atelectasis or scarring in the midlung medellin
[2018-02-06 23:30] LABS: INTERNATIONAL RATION (INR) 1.05; PROTHROMBIN TIME 14.2 SEC (11.4-15.4)
[2018-02-06 23:40] LABS: ALANINE AMINOTRANSFERASE 37 U/L (21-72); ALBUMIN 2.8 g/dL (3.5-5.0); ALKALINE PHOSPHATASE 213 U/L (38-126); ANION GAP 6 (5-19); ASPARTATE AMINO TRANSFERASE 38 U/L (17-59); BILIRUBIN,DIRECT 0.3 mg/dL (0.0-0.4); BLOOD UREA NITROGEN 18 mg/dL (7-20); CALCIUM 8.4 mg/dL (8.4-10.2); CARBON DIOXIDE 32 mmol/L (22-30); CHLORIDE 102 mmol/L (98-107); GLUCOSE 91 mg/dL (75-110); LIPASE 147.6 U/L (23-300); POTASSIUM 4.3 mmol/L (3.6-5.0); SODIUM 140.1 mmol/L (137-145); TOTAL PROTEIN 6.3 g/dL (6.3-8.2)
[2018-02-06 23:51] LABS: ABSOLUTE EOSINOPHILS # (AUTO) 0.2 10^3/uL (0.0-0.6); ABSOLUTE LYMPHOCYTES (AUTO) 0.8 10^3/uL (0.5-4.7); ABSOLUTE MONOCYTES (AUTO) 0.7 10^3/uL (0.1-1.4); ABSOLUTE NEUT (AUTO) 4.8 10^3/uL (1.7-8.2); BASOPHILS % (AUTO) 0.5 % (0-2); EOSINOPHILS % (AUTO) 3.2 % (0-6); HEMATOCRIT 44.3 % (37.9-51.0); HEMOGLOBIN 15.5 g/dL (13.5-17.0); LYMPHOCYTES % (AUTO) 12.8 % (13-45); MEAN CORPUSCULAR HEMOGLOBIN 34.9 pg (27.0-33.4); MEAN CORPUSCULAR VOLUME 100 fl (80-97); MONOCYTES % (AUTO) 10.8 % (3-13); RED BLOOD COUNT 4.43 10^6/uL (4.35-5.55); RED CELL DISTRIBUTION WIDTH 15.8 % (11.5-14.0); SEGMENTED NEUTROPHILS % (AUTO) 72.7 % (42-78); TOTAL CELLS COUNTED % (AUTO) 100 %; WHITE BLOOD COUNT 6.6 10^3/uL (4.0-10.5)
[2018-02-06 23:52] LABS: PLATELET COUNT 80 10^3/uL (150-450)
[2018-02-07 00:12] LABS: NT PRO BNP 209 pg/mL (5-900)
[2018-02-07 00:23] LABS: TROPONIN I < 0.012 ng/mL
[2018-02-07] MEDS ORDERED: TRAMADOL HCL 50 MG TABLET PO ONE (01:48)
[2018-02-07] MEDS ORDERED: IPRATROPIUM/ALBUTEROL 0.5-2.5 MG/3 ML AMPUL NEB ONE (01:48)
[2018-02-07 04:03] LABS: APPEARANCE,URINE CLEAR; BILIRUBIN,URINE NEGATIVE (NEGATIVE); COLOR,URINE YELLOW; GLUCOSE, URINE NEGATIVE (NEGATIVE); KETONES,URINE NEGATIVE (NEGATIVE); LEUKOCYTE ESTERASE,URINE NEGATIVE (NEGATIVE); NITRITE,URINE NEGATIVE (NEGATIVE); PROTEIN,URINE NEGATIVE (NEGATIVE); UROBILINOGEN,URINE NEGATIVE mg/dL (<2.0)
--- NOTE | 2018-02-07 06:35 | RADIOLOGY REPORT (SQ) ---
EXAM DESCRIPTION: CT ABDOMEN PELVIS WITH IV CONTRAST COMPLETED DATE/TME: 02/07/2018 01:48 CLINICAL HISTORY: abd pain, umbilical hernia COMPARISON: 02/05/2017 TECHNIQUE: CT of the abdomen and pelvis performed following IV administration of 76 mL of Omnipaque 350. DLP: 1043.63 mGycm FINDINGS: Lung Bases: Severe panlobular emphysematous change. Bones: Mild degenerative change of the spine. Abdomen: Liver: Nodular contour of the liver. No definite intrahepatic mass identified. Numerous portal venous collaterals identified. Gallbladder: No calcified gallstones. Spleen, Pancreas, and Adrenal Glands: Splenomegaly. The pancreas and adrenal glands are unremarkable. Kidneys: The kidneys have normal size and contour without evidence of solid mass or hydronephrosis. Vasculature: Aortoiliac atherosclerosis. IVC is unremarkable. The portal vein is patent. The proximal visceral and renal arteries are patent. Stomach: The stomach and duodenum have normal course. Other: No free intraperitoneal air. Large volume ascites. Fat-containing umbilical hernia. Bilateral fat and fluid-containing hernias. Pelvis: Bladder: Urinary bladder is unremarkable. Bowel: Mildly prominent loops of small bowel throughout the abdomen without transition point identified. Air identified in the colon. Scattered diverticula of the colon. Appendix: Normal appendix. Pelvis: Prostate is not enlarged. IMPRESSION: 1. Findings compatible with cirrhosis and portal hypertension with splenomegaly. 2. Large volume ascites. 3. Mild diffuse prominence of the small bowel without transition point identified. Air identified in the colon. Findings most compatible with ileus. 4. Diverticulosis without evidence of diverticulitis. This exam was performed according to our departmental dose-optimization program, which includes automated exposure control, adjustment of the mA and/or kV according to patient size and/or use of iterative reconstruction technique.
--- NOTE | 2018-02-07 07:53 | EKG REPORT ---
SEVERITY:- DEFECTIVE ECG - ATRIAL FIBRILLATION (NO, BASELINE ARTEFACTS ONLY, ITS NSR ABNRM R PROG, CONSIDER ASMI OR LEAD PLACEMENT : Confirmed by: Tamir Baron MD 07-Feb-2018 07:52:42
[2018-02-07 08:57] VITALS: BP 92/55
== END 2018-02-07 08:57 | disposition home or self-care (01) ==
LOC: ER 20:54
DX: K42.9 Umbilical hernia without obstruction or gangrene (principal); R18.8 Other ascites; J44.9 Chronic obstructive pulmonary disease, unspecified; R10.9 Unspecified abdominal pain; I50.9 Heart failure, unspecified; I10 Essential (primary) hypertension; E11.9 Type 2 diabetes mellitus without complications; Z86.718 Personal history of other venous thrombosis and embolism; I25.2 Old myocardial infarction; Z86.14 Personal history of Methicillin resistant Staphylococcus aureus infection; Z88.6 Allergy status to analgesic agent; Z88.0 Allergy status to penicillin
CPT/HCPCS: 93005; 94640; 99285; 36415; 83690; 83735; 85025; 85610; 80053; 81001; 84484; 83880; 74022; 74177; 93010; A9270 ×2; J7620

== ENCOUNTER 2018-03-02 23:13 | Inpatient (IN) | payer MEDICARE, OTHER ==
--- NOTE | 2018-03-02 23:45 | ER Document Report ---
ED General - General Chief Complaint: Breathing Difficulty Stated Complaint: VOMITING Time Seen by Provider: 03/02/18 23:29 Notes: Patient is a 62 year old male that comes to the emergency department for generally feeling unwell, he states he threw up prior to arrival, he states he had a pain at the top of his stomach at the bottom of his chest that felt like it went through him. He denies any particular pain now. No fevers, normal bowel movements, denies current nausea. Past medical history includes COPD, alpha-1 antitrypsin deficiency, cirrhosis secondary to this, nonoperative umbilical. TRAVEL OUTSIDE OF THE [place] IN LAST 30 DAYS: No - Related Data Allergies/Adverse Reactions: Heparin Analogues [Heparin Agents] Allergy (Severe, Verified 03/02/18 23:46) Thrombocytopenia heparinoids [Heparinoids] Allergy (Severe, Verified 03/02/18 23:46) Thrombocytopenia doxycycline Allergy (Intermediate, Verified 03/02/18 23:46) RED FACE AND SWELLING codeine [Codeine] Allergy (Unknown, Verified 03/02/18 23:46) GI upset Penicillins Allergy (Unknown, Verified 03/02/18 23:46) Swelling Past Medical History - General Information source: Patient - Social History Smoking Status: Former Smoker Drug Abuse: None Lives with: Spouse/Significant other Family History: CAD, Hypertension, Other - CHF - Past Medical History Cardiac Medical History: Reports: Hx Congestive Heart Failure, Hx DVT, Hx Heart Attack, Hx Hypertension - LOW, Hx Pulmonary Embolism Denies: Hx Coronary Artery Disease, Hx Hypercholesterolemia Pulmonary Medical History: Reports: Hx COPD - on 2L nasal cannula., Hx Pneumonia , Hx Respiratory Failure Denies: Hx Asthma, Hx Bronchitis, Hx Sleep Apnea, Hx Tuberculosis Neurological Medical History: Denies: Hx Cerebrovascular Accident, Hx Seizures Endocrine Medical History: Reports: Hx Diabetes Mellitus Type 2 - diet controlled.. 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 Denies: Hx Hepatitis Musculoskeletal Medical History: Reports Hx Arthritis Psychiatric Medical History: Reports: Hx Depression Infectious Medical History: Reports: Hx C-Diff, Hx MRSA. Denies: Hx Hepatitis Past Surgical History: Reports: Hx Cardiac Catheterization, Other - Left chest tube insertion; lung biopsy. - Immunizations Hx Diphtheria, Pertussis, Tetanus Vaccination: Yes Hx Pneumococcal Vaccination: 04/05/14 Review of Systems - Review of Systems Constitutional: See HPI EENT: No symptoms reported Cardiovascular: See HPI Respiratory: No symptoms reported Gastrointestinal: See HPI Genitourinary: No symptoms reported Male Genitourinary: No symptoms reported Musculoskeletal: No symptoms reported Skin: No symptoms reported Hematologic/Lymphatic: No symptoms reported Neurological/Psychological: No symptoms reported Physical Exam - Vital signs Vitals: Temp Pulse Resp BP Pulse Ox 98.6 F 118 H 18 72/44 L 96 03/02/18 23:22 03/02/18 23:22 03/02/18 23:22 03/02/18 23:22 03/02/18 23:22 - Notes Notes: GENERAL: Alert and interactive but drawn, pale, chronically ill-appearing HEAD: Normocephalic, atraumatic. EYES: Pupils equal, round, and reactive to light. Extraocular movements intact. ENT: Oral mucosa moist, tongue midline. Oropharynx unremarkable. Airway patent. Nares patent, no nasal septal hematoma, TM's intact. NECK: Full range of motion. Supple. Trachea midline. LUNGS: Clear to auscultation bilaterally, no wheezes, rales, or rhonchi. No respiratory distress. HEART: Tachycardia, a few extrasystoles. No murmur ABDOMEN: Very distended abdomen with apparent ascites, mild generalized tenderness, nonspecific, there appears to be an umbilical hernia which is very soft and nontender as well. GENITOURINARY: Deferred EXTREMITIES: Moves all 4 extremities spontaneously. No edema, normal radial and dorsalis pedis pulses bilaterally. No cyanosis. BACK: no cervical, thoracic, lumbar midline tenderness. No saddle anesthesia, normal distal neurovascular exam. NEUROLOGICAL: Alert and oriented x3. Normal speech. [cranial nerves II through XII grossly intact]. PSYCH: Normal affect, normal mood. SKIN: Warm, dry, normal turgor. No rashes or lesions noted. Course - Re-evaluation Re-evalutation: Patient appears somewhat ill on evaluation. Patient was found to be hypotensive at 72 systolic at triage, at bedside this was repeated at both 88 and 91 systolic. Records reviewed, this is patient's baseline. However patient is tachycardic with heart rate ranging from 115 to about 130. On my evaluation of the monitor heart rate is approximately 115. He is not in respiratory distress , he is alert, responsive, denies any current symptoms other than feeling "generally unwell". EKG showing heart rate of 140, P waves are present, does not appear to be atrial fibrillation. No noted T wave inversions or ST segment changes in consecutive leads. QTc 495. CBC unremarkable, chemistry generally unremarkable other than showing chronic persistent hypoalbuminemia. Lipase is normal. Troponin is negative. Lactic acid is negative. On reevaluation patient is unchanged. Concern because of his persistent tachycardia. He does have a history of PE. He does have multiple hernias although did not appear to be incarcerated on my evaluation. He did have a pain that radiated from his front to his back. Patient was discussed with Dr. Hernandez. Will give small fluid challenge, CTA of the chest/ abdomen will be performed, if this is negative then will proceed with testing ascites fluid. CTA of the chest and abdomen negative for any acute findings, abdominal hernias showing no incarcerated bowel, no PE. No dissection. I proceeded with abdominocentesis but this does not show SBP. Because of persistent tachycardia , large distention of the abdomen, borderline blood pressure, will discuss with hospitalist for potential admission with probable full abdominocentesis, possible hydration, possible albumin. Patient was discussed with Dr. Hernandez again. Patient is in agreement with this plan. 03/03/18 03:[address] Bedoya, internal medicine, requests second troponin pending admission. Second troponin is negative. Results of paracentesis fluid did not indicate spontaneous bacterial peritonitis. Discussed with Dr. Bedoya again, patient will be admitted to [facility] [place] full admission. - Vital Signs Vital signs: Temp Pulse Resp BP Pulse Ox 98.6 F 120 H 16 90/64 L 98 03/02/18 23:22 03/02/18 23:25 03/03/18 04:00 03/03/18 01:15 03/03/18 03:00 - Laboratory Result Diagrams: 03/02/18 23:38 03/02/18 23:38 Laboratory results interpreted by me: 03/02/18 03/02/18 03/03/18 23:38 23:38 01:05 MCV 99 H MCH 34.4 H RDW 14.8 H Plt Count 121 L Calcium 8.2 L ALT 19 L Alkaline Phosphatase 236 H Albumin 2.8 L Urine Urobilinogen 2.0 H Procedures - Paracentesis RLQ Consent obtained: Yes - verbal Paracentesis pre-procedure: Sterile PPE donned, Chloraprep applied Needle size: 18 Paracentesis location: RLQ Anesthetic type: Other - declined by patient Amount/type of drainage: 10 cc of yellowish but slightly cloudy liquid Number of attempts: 1 Ultrasound guided: Yes Complications: No Notes: Dr. Hernandez came to bedside for procedure Discharge - Discharge Clinical Impression: Tachycardia Cirrhosis of liver Qualifiers: Hepatic cirrhosis type: unspecified hepatic cirrhosis Ascites presence: with ascites Qualified Code(s): K74.60 - Unspecified cirrhosis of liver Ascites Qualifiers: Ascites type: other type Qualified Code(s): R18.8 - Other ascites Vomiting Qualifiers: Vomiting type: unspecified Vomiting Intractability: non-intractable Nausea presence: without nausea Qualified Code(s): R11.11 - Vomiting without nausea Condition: Stable Disposition: ADMITTED INPATIENT Admitting Provider: Hospitalist Unit Admitted: [facility] [place]
[2018-03-02 23:55] LABS: ABSOLUTE BASOPHILS # (AUTO) 0.1 10^3/uL (0.0-0.2); ABSOLUTE EOSINOPHILS # (AUTO) 0.4 10^3/uL (0.0-0.6); ABSOLUTE LYMPHOCYTES (AUTO) 1.4 10^3/uL (0.5-4.7); ABSOLUTE NEUT (AUTO) 6.2 10^3/uL (1.7-8.2); BASOPHILS % (AUTO) 0.6 % (0-2); EOSINOPHILS % (AUTO) 4.1 % (0-6); HEMATOCRIT 45.9 % (37.9-51.0); HEMOGLOBIN 15.9 g/dL (13.5-17.0); LYMPHOCYTES % (AUTO) 15.1 % (13-45); MEAN CORPUSCULAR HEMOGLOBIN 34.4 pg (27.0-33.4); MEAN CORPUSCULAR HGB CONC 34.6 g/dL (32.0-36.0); MEAN CORPUSCULAR VOLUME 99 fl (80-97); MONOCYTES % (AUTO) 10.8 % (3-13); PLATELET COUNT 121 10^3/uL (150-450); RED BLOOD COUNT 4.61 10^6/uL (4.35-5.55); RED CELL DISTRIBUTION WIDTH 14.8 % (11.5-14.0); SEGMENTED NEUTROPHILS % (AUTO) 69.4 % (42-78); TOTAL CELLS COUNTED % (AUTO) 100 %; WHITE BLOOD COUNT 8.9 10^3/uL (4.0-10.5)
[2018-03-03 00:10] LABS: ALANINE AMINOTRANSFERASE 19 U/L (21-72); ALBUMIN 2.8 g/dL (3.5-5.0); ALKALINE PHOSPHATASE 236 U/L (38-126); ANION GAP 9 (5-19); ASPARTATE AMINO TRANSFERASE 43 U/L (17-59); BILIRUBIN,DIRECT 0.3 mg/dL (0.0-0.4); BILIRUBIN,TOTAL 1.3 mg/dL (0.2-1.3); BLOOD UREA NITROGEN 13 mg/dL (7-20); CALCIUM 8.2 mg/dL (8.4-10.2); CARBON DIOXIDE 30 mmol/L (22-30); CHLORIDE 101 mmol/L (98-107); GLUCOSE 99 mg/dL (75-110); LIPASE 133.2 U/L (23-300); POTASSIUM 4.3 mmol/L (3.6-5.0); SODIUM 139.8 mmol/L (137-145); TOTAL PROTEIN 6.6 g/dL (6.3-8.2)
--- NOTE | 2018-03-03 00:10 | RADIOLOGY REPORT (SQ) ---
PROCEDURE: XR CHEST 1 VIEW HISTORY: weakness, hypotension COMPARISON: 01/29/[address] done on 09/24/2016 TECHNIQUE: The study was done on 03/02/2018 at 11:56 PM, local time Single projection of the chest was done. FINDINGS: There are underlying changes of COPD with areas of parenchymal scarring seen in the bilateral midlung zones There are no discrete airspace infiltrates, pneumothoraces or pleural effusions. The pulmonary vascularity is normal. The cardiomediastinal silhouette is unremarkable for patient's age and sex. IMPRESSION: There is no acute pleural-parenchymal process seen in the imaged lung medellin. There are underlying changes of COPD with areas of parenchymal scarring seen in the bilateral midlung zones
[2018-03-03] MEDS ORDERED: NORMAL SALINE 1000 ML 250 ML IV PRN (00:57)
[2018-03-03 01:29] LABS: APPEARANCE,URINE CLEAR; BILIRUBIN,URINE NEGATIVE (NEGATIVE); COLOR,URINE YELLOW; GLUCOSE, URINE NEGATIVE (NEGATIVE); KETONES,URINE NEGATIVE (NEGATIVE); LEUKOCYTE ESTERASE,URINE NEGATIVE (NEGATIVE); NITRITE,URINE NEGATIVE (NEGATIVE); PROTEIN,URINE NEGATIVE (NEGATIVE); URINE SPECIFIC GRAVITY 1.013
--- NOTE | 2018-03-03 01:57 | RADIOLOGY REPORT (SQ) ---
CLINICAL HISTORY: pain through chest to back, tachycardia, vomiting COMPARISON: None. TECHNIQUE: CT CHEST ANGIOGRAPHY WITHOUT THEN WITH IV CONTRAST, CT ABDOMEN PELVIS WITHOUT THEN WITH IV CONTRAST on 03/03/2018 12:57 AM CLINICAL PHARMACY SPECIALIST. MIPS reconstructions were generated. This exam was performed according to our departmental dose-optimization program, which includes automated exposure control, adjustment of the mA and/or kV according to patient size and/or use of iterative reconstruction technique. FINDINGS: Vascular: Thoracic aorta is normal in course and caliber without aneurysm or dissection. Abdominal aorta is normal in course and caliber without aneurysm. Pelvic arteries are patent without aneurysm or occlusion. Chest: The heart is normal in size. There is no pericardial effusion. Intrathoracic lymph nodes are not enlarged. There is no pleural effusion, pleural thickening or pneumothorax. Central airways are patent. There is severe diffuse emphysema. Abdomen: Liver is mildly cirrhotic in morphology. There is large amount of ascites. There are extensive vascular collaterals in the left upper quadrant. There is no biliary dilatation. The pancreas and spleen are normal in appearance. The adrenal glands and kidneys are unremarkable. There is no free air. There is no retroperitoneal adenopathy.There is a small fat-containing umbilical hernia. Pelvis: There is moderate to severe distal colonic diverticulosis. Urinary bladder is unremarkable. There is no free fluid. Appendix is normal. There are small bilateral ascites containing inguinal hernias. Skeleton: There are no acute osseous findings. No suspicious bony lesions. IMPRESSION: No aortic dissection or aneurysm. No pulmonary embolus. Emphysema without pneumonia. Extensive ascites.
[2018-03-03] MEDS ORDERED: LIDOCAINE 1% INJ-PF (10 MG/ML) 30 ML SDV ONE (02:11)
[2018-03-03] MEDS ORDERED: LIDOCAINE 1% INJ (10 MG/ML) 10 ML MDV INJ ONE (02:26)
[2018-03-03 03:18] LABS: FLUID APPEARANCE SLIGHTLY HAZY; FLUID COLOR YELLOW; FLUID SOURCE ASCITES
[2018-03-03 03:19] LABS: FLUID VISCOSITY LIQUID
[2018-03-03 03:24] LABS: FLUID TYPE PERITONEAL
[2018-03-03] MEDS ORDERED: LACTULOSE SYRUP 20 GM/30 ML UDCUP PO ONE (05:25)
[2018-03-03] MEDS ORDERED: FLUDROCORTISONE ACETATE 0.1 MG TABLET PO ONE (05:30)
[2018-03-03 05:51] LABS: INTERNATIONAL RATION (INR) 1.07; PROTHROMBIN TIME 14.4 SEC (11.4-15.4)
[2018-03-03 06:05] LABS: PREALBUMIN 5.7 mg/dL (17.6-36.0)
--- NOTE | 2018-03-03 06:30 | PDOC H&P ---
History of Present Illness Admission Date/PCP: 03/03/18 05:00 ALFA GRANGER NP Patient complains of: Shortness of breath and abdominal distention History of Present Illness: CHATO BRAXTON is a 62 year old male with an extensive past medical history of alpha-1 antitrypsin deficiency, chronic respiratory failure with home oxygen dependence, moderate diastolic heart failure, Midodrine dependent hypotension, hepatic cirrhosis with chronic and recurrent exacerbations of ascites pulmonary emboli and DVT without anticoagulation and profound debility. Patient presents with 1 hour of nausea and vomiting gastric content, associated with shortness of breath and increasing abdominal distention. He denies fever, palpitations diaphoresis or chest pain. In the emergency room he has hypotension and hypovolemia, a diagnostic paracentesis, CT abdomen pelvis, chemistry and CBC are otherwise unremarkable. He is referred to the hospitalist for admission. Patient denies recent changes or missing medications Past Medical History Cardiac Medical History: Reports: Congestive Heart Failure, DVT, Myocardial Infarction, Hypertension - LOW, Pulmonary Embolism Denies: Coronary Artery Disease, Hyperlipidema Pulmonary Medical History: Reports: Chronic Obstructive Pulmonary Disease (COPD ) - on 2L nasal cannula., Pneumonia, Respiratory Failure Denies: Asthma, Bronchitis, Sleep Apnea, Tuberculosis Neurological Medical History: Denies: Seizures Endocrine Medical History: Reports: Diabetes Mellitus Type 2 - diet controlled. 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 Social History Lives with: Spouse/Significant other Smoking Status: Former Smoker Last Time Smoked: 1981 Frequency of Alcohol Use: None Hx Recreational Drug Use: No Drugs: None Hx Prescription Drug Abuse: No - Advance Directive Resuscitation Status: Full Code Family History Family History: CAD, Hypertension, Other - CHF Parental Family History Reviewed: Yes Children Family History Reviewed: Yes Sibling(s) Family History Reviewed.: Yes Medication/Allergy Home Medications: Albuterol Sulfate [Ventolin HFA MDI 18 GM] 2 puff IH Q4HP PRN 01/16/18 Docusate Sodium [Colace 100 mg Capsule] 100 mg PO DAILY 01/16/18 Fludrocortisone Acetate [Florinef 0.1 mg Tablet] 0.05 mg PO DAILY 01/16/18 Ipratropium Morley [Atrovent 0.02% Neb 0.5 mg/2.5 ml Ampul] 1 vial NEB QIDP PRN 01/16/18 Levalbuterol HCl [Xopenex Neb 1.25 mg/3 ml Ampul] 1 vial NEB Q6HP PRN 01/16/18 Propranolol HCl [Inderal 20 mg Tablet] 20 mg PO Q12 01/16/18 Tamsulosin HCl [Flomax 0.4 mg Cap.sr] 0.4 mg PO QPM 01/16/18 Theophylline Anhydrous [Partha-Dur 300 mg Tab.sr] 300 mg PO DAILY 01/16/18 Furosemide [Lasix 20 mg Tablet] 10 mg PO DAILY #30 tablet 01/19/18 Midodrine HCl [Proamatine 5 mg Tablet] 15 mg PO TID@0600,1100,1500 #180 tablet 01/19/18 Potassium Chloride [Klor-Con 10 Meq Capsule ER] 20 meq PO DAILY #60 capsule.er 01/19/18 Prednisone [Deltasone 20 mg Tablet] 60 mg PO DAILY #9 tablet 01/19/18 Spironolactone [Aldactone 25 mg Tablet] 25 mg PO DAILY #30 tablet 01/19/18 Sulfamethoxazole/Trimethoprim [Septra-Ds 800-160 mg Tablet] 1 tab PO BID #14 tablet 01/19/18 Prednisone 60 mg PO DAILY #15 tablet 01/29/18 Polyethylene Glycol 3350 [Miralax] 17 gm PO DAILY #238 gm 02/07/18 Allergies/Adverse Reactions: Heparin Analogues [Heparin Agents] Allergy (Severe, Verified 03/02/18 23:46) Thrombocytopenia heparinoids [Heparinoids] Allergy (Severe, Verified 03/02/18 23:46) Thrombocytopenia doxycycline Allergy (Intermediate, Verified 03/02/18 23:46) RED FACE AND SWELLING codeine [Codeine] Allergy (Unknown, Verified 03/02/18 23:46) GI upset Penicillins Allergy (Unknown, Verified 03/02/18 23:46) Swelling promethazine [From Phenergan] Adverse Reaction (Verified 03/03/18 06:12) Review of Systems Constitutional: ABSENT: chills, fever(s), headache(s), weight gain, weight loss Eyes: ABSENT: visual disturbances Ears: ABSENT: hearing changes Cardiovascular: ABSENT: chest pain, dyspnea on exertion, edema, orthropnea, palpitations Respiratory: ABSENT: cough, hemoptysis Gastrointestinal: ABSENT: abdominal pain, constipation, diarrhea, hematemesis, hematochezia, nausea, vomiting Genitourinary: ABSENT: dysuria, hematuria Musculoskeletal: ABSENT: joint swelling Integumentary: ABSENT: rash, wounds Neurological: ABSENT: abnormal gait, abnormal speech, confusion, dizziness, focal weakness, syncope Psychiatric: ABSENT: anxiety, depression, homidical ideation, suicidal ideation Endocrine: ABSENT: cold intolerance, heat intolerance, polydipsia, polyuria Hematologic/Lymphatic: ABSENT: easy bleeding, easy bruising Physical Exam Vital Signs: Temp Pulse Resp BP Pulse Ox 98.6 F 116 H 24 H 98/70 L 96 03/02/18 23:22 03/03/18 05:28 03/03/18 05:28 03/03/18 05:28 03/03/18 05:28 General appearance: PRESENT: cooperative, mild distress, thin - Chronically ill- appearing, cachexia, global muscular atrophy, massive abdominal ascites, other Head exam: PRESENT: atraumatic, normocephalic Eye exam: PRESENT: conjunctiva pink, EOMI, PERRLA. ABSENT: scleral icterus Ear exam: PRESENT: normal external ear exam Mouth exam: PRESENT: moist, tongue midline Neck exam: ABSENT: carotid bruit, JVD, lymphadenopathy, thyromegaly Respiratory exam: PRESENT: clear to auscultation porfirio, prolonged expiratory phas , symmetrical. ABSENT: rales, rhonchi, wheezes Cardiovascular exam: PRESENT: RRR. ABSENT: diastolic murmur, rubs, systolic murmur Pulses: PRESENT: normal dorsalis pedis pul Vascular exam: PRESENT: normal capillary refill GI/Abdominal exam: PRESENT: ascites, distended, firm, hypoactive bowel sounds, normal bowel sounds, soft. ABSENT: guarding, mass, organolmegaly, rebound, tenderness Rectal exam: PRESENT: deferred Extremities exam: PRESENT: full ROM. ABSENT: calf tenderness, clubbing, pedal edema Neurological exam: PRESENT: alert, awake, oriented to person, oriented to place , oriented to time, oriented to situation, CN II-XII grossly intact. ABSENT: motor sensory deficit Psychiatric exam: PRESENT: appropriate affect, normal mood. ABSENT: homicidal ideation, suicidal ideation Results Impressions: Chest X-Ray 03/02/18 23:42 IMPRESSION: There is no acute pleural-parenchymal process seen in the imaged lung medellin. There are underlying changes of COPD with areas of parenchymal scarring seen in the bilateral midlung zones Abdomen/Pelvis CTA 03/03/18 00:57 IMPRESSION: No aortic dissection or aneurysm. No pulmonary embolus. Emphysema without pneumonia. Extensive ascites. Chest/Abdomen CTA 03/03/18 00:57 IMPRESSION: No aortic dissection or aneurysm. No pulmonary embolus. Emphysema without pneumonia. Extensive ascites. Assessment & Plan - Diagnosis (1) Ascites Qualifiers: Ascites type: other type Qualified Code(s): R18.8 - Other ascites Is this a current diagnosis for this admission?: Yes Plan: Optimize medical management, education, doubtful blood pressure will tolerate significant paracentesis. (2) Cirrhosis of liver Qualifiers: Hepatic cirrhosis type: unspecified hepatic cirrhosis Ascites presence: with ascites Qualified Code(s): K74.60 - Unspecified cirrhosis of liver; R18.8 - Other ascites; R18.8 - Other ascites Is this a current diagnosis for this admission?: Yes Plan: Supportive care, follow-up INR and prealbumin (3) Hypotension Is this a current diagnosis for this admission?: Yes Plan: Secondary to intravascular depletion and hypoalbuminemia, optimize Midrin, limit fluids secondary to third spacing. - Time Time Spent: 50 to 70 Minutes - Inpatient Certification Medical Necessity: Need Close Monitoring Due to Risk of Patient Decompensation
[2018-03-03] MEDS: MIDODRINE HCL 5 MG TABLET PO SCH ×3 (06:35→15:43)
[2018-03-03] MEDS: IPRATROPIUM BROMIDE 0.02% NEB 0.5 MG/2.5 ML AMPUL NEB PRN ×2 (06:37→13:49)
[2018-03-03] MEDS: LEVALBUTEROL HCL NEB 1.25 MG/3 ML AMPUL NEB PRN ×2 (06:37→13:49)
[2018-03-03] MEDS ORDERED: FLUDROCORTISONE ACETATE 0.1 MG TABLET ONE (06:42)
--- NOTE | 2018-03-03 07:16 | EKG REPORT ---
SEVERITY:- ABNORMAL ECG - SINUS TACHYCARDIA. BORDERLINE RIGHT AXIS DEVIATION BORDERLINE R WAVE PROGRESSION, ANTERIOR LEADS BORDERLINE T ABNORMALITIES, ANT-LAT LEADS : Confirmed by: Tamir Baron MD 03-Mar-2018 07:16:00
[2018-03-03] MEDS: IPRATROPIUM/ALBUTEROL 0.5-2.5 MG/3 ML AMPUL NEB SCH ×2 (07:54→20:06)
[2018-03-03] MEDS ORDERED: SPIRONOLACTONE 25 MG TABLET PO SCH (10:00)
[2018-03-03] MEDS: DOCUSATE SODIUM 100 MG CAPSULE PO SCH (10:17)
[2018-03-03] MEDS: POTASSIUM CHLORIDE 10 MEQ CAPSULE.ER PO SCH (10:17)
[2018-03-03] MEDS: PROPRANOLOL HCL 20 MG TABLET PO SCH (10:17)
[2018-03-03 11:21] LABS: CREATINE KINASE MB 0.76 ng/mL (<4.55)
[2018-03-03 11:24] LABS: TROPONIN I < 0.012 ng/mL
[2018-03-03] MEDS: ALBUMIN HUMAN 12.5 GM/50 ML RTUINJ IV SCH ×2 (12:25→13:29)
[2018-03-03 17:15] LABS: CREATINE KINASE MB 0.74 ng/mL (<4.55)
[2018-03-03 17:22] LABS: TROPONIN I < 0.012 ng/mL
[2018-03-03 22:41] LABS: CREATINE KINASE MB 0.69 ng/mL (<4.55); TROPONIN I < 0.012 ng/mL
[2018-03-04] MEDS: IPRATROPIUM BROMIDE 0.02% NEB 0.5 MG/2.5 ML AMPUL NEB PRN ×2 (02:13→14:17)
[2018-03-04] MEDS: LEVALBUTEROL HCL NEB 1.25 MG/3 ML AMPUL NEB PRN ×2 (02:13→14:17)
[2018-03-04 04:52] LABS: ABSOLUTE EOSINOPHILS # (AUTO) 0.3 10^3/uL (0.0-0.6); ABSOLUTE LYMPHOCYTES (AUTO) 0.8 10^3/uL (0.5-4.7); ABSOLUTE MONOCYTES (AUTO) 0.4 10^3/uL (0.1-1.4); ABSOLUTE NEUT (AUTO) 2.9 10^3/uL (1.7-8.2); BASOPHILS % (AUTO) 0.7 % (0-2); EOSINOPHILS % (AUTO) 6.2 % (0-6); HEMATOCRIT 38.2 % (37.9-51.0); LYMPHOCYTES % (AUTO) 18.4 % (13-45); MEAN CORPUSCULAR HEMOGLOBIN 33.9 pg (27.0-33.4); MEAN CORPUSCULAR HGB CONC 34.6 g/dL (32.0-36.0); MEAN CORPUSCULAR VOLUME 98 fl (80-97); MONOCYTES % (AUTO) 8.9 % (3-13); RED CELL DISTRIBUTION WIDTH 14.9 % (11.5-14.0); SEGMENTED NEUTROPHILS % (AUTO) 65.8 % (42-78); TOTAL CELLS COUNTED % (AUTO) 100 %; WHITE BLOOD COUNT 4.4 10^3/uL (4.0-10.5)
[2018-03-04 04:59] LABS: HEMOGLOBIN 13.2 g/dL (13.5-17.0); PLATELET COUNT 74 10^3/uL (150-450)
[2018-03-04 05:18] LABS: ALANINE AMINOTRANSFERASE 23 U/L (21-72); ALKALINE PHOSPHATASE 143 U/L (38-126); ANION GAP 7 (5-19); ASPARTATE AMINO TRANSFERASE 31 U/L (17-59); BILIRUBIN,DIRECT 0.4 mg/dL (0.0-0.4); BILIRUBIN,TOTAL 1.2 mg/dL (0.2-1.3); BLOOD UREA NITROGEN 12 mg/dL (7-20); CARBON DIOXIDE 28 mmol/L (22-30); CHLORIDE 105 mmol/L (98-107); GLUCOSE 67 mg/dL (75-110); POTASSIUM 3.8 mmol/L (3.6-5.0); SODIUM 139.6 mmol/L (137-145); TOTAL PROTEIN 4.7 g/dL (6.3-8.2)
[2018-03-04] MEDS: MIDODRINE HCL 5 MG TABLET PO SCH ×3 (05:56→14:55)
[2018-03-04] MEDS: IPRATROPIUM/ALBUTEROL 0.5-2.5 MG/3 ML AMPUL NEB SCH ×2 (08:17→20:02)
[2018-03-04] MEDS: ALBUMIN HUMAN 12.5 GM/50 ML RTUINJ IV SCH ×2 (09:03→10:08)
[2018-03-04] MEDS: FLUDROCORTISONE ACETATE 0.1 MG TABLET PO SCH (09:04)
[2018-03-04] MEDS: POTASSIUM CHLORIDE 10 MEQ CAPSULE.ER PO SCH (09:04)
[2018-03-04] MEDS: DOCUSATE SODIUM 100 MG CAPSULE PO SCH (09:04)
--- NOTE | 2018-03-04 15:54 | PDOC PROGRESS REPORT ---
Subjective Progress Note for:: 03/04/18 Subjective:: Mr. 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 Patient has end stage liver disease and has been evaluated earlier this year at [facility] in [place] for OLT. Apparently, he was deemed to be a poor candidate for liver transplantation. He has been previously referred to palliative and possible hospice care but says he is not amenable for this transition yet. He has been having diuretic-resistant recurrent ascites with prior paracentesis. However, his chronic hypotension has been limiting the frequency of getting the paracentesis. He was noted to have a large ascites upon admission. A diagnostic tap was done in the ER which has ruled out SBP. Patient says that he wants to be go for the paracentesis again. His blood pressures chronically run in the 80s systolic at home even on midodrine. Yesterday, his pressures were in the 70s systolic and improved slightly to 89/60s after albumin infusion. Explained in length with patient and on bedside that he has diuretic resistant ascites from his end stage liver disease and that his chronic hypotension is very limiting to how much can be drained with the paracentesis. Explained that if his pressures continued to improve, we can attempt to drain a limited amount of the ascites. Discussed goals of care in length. He says he wants to be full code for now and refused palliative care referral at this time. He denies chest pain, shortness of breath or abdominal pain. Reason For Visit: CHEST AND ABD PAIN ACITES Physical Exam Vital Signs: Temp Pulse Resp BP Pulse Ox 98.2 F 81 20 88/55 L 95 03/04/18 07:17 03/04/18 14:17 03/04/18 14:17 03/04/18 11:07 03/04/18 14:17 Intake & Output 03/03/18 03/04/18 03/05/18 06:59 06:59 06:59 Intake Total 1217 456 Output Total 250 Balance 967 456 Weight 156 lb 15.506 oz 157 lb 10.088 oz General appearance: PRESENT: no acute distress, well-developed, well-nourished Head exam: PRESENT: atraumatic, normocephalic Eye exam: PRESENT: conjunctiva pink, EOMI, PERRLA. ABSENT: scleral icterus Ear exam: PRESENT: normal external ear exam Mouth exam: PRESENT: moist, tongue midline Neck exam: ABSENT: carotid bruit, JVD, lymphadenopathy, thyromegaly Respiratory exam: PRESENT: clear to auscultation porfirio. ABSENT: rales, rhonchi, wheezes Cardiovascular exam: PRESENT: RRR. ABSENT: diastolic murmur, rubs, systolic murmur Pulses: PRESENT: normal dorsalis pedis pul GI/Abdominal exam: PRESENT: ascites, distended. ABSENT: tenderness Rectal exam: PRESENT: deferred Neurological exam: PRESENT: alert, awake, oriented to person, oriented to place , oriented to time, oriented to situation, CN II-XII grossly intact. ABSENT: motor sensory deficit Results Laboratory Results: 03/04/18 04:16 03/04/18 04:16 03/04/18 03/04/18 04:16 04:16 WBC 4.4 RBC 3.90 L Hgb 13.2 L D Hct 38.2 MCV 98 H MCH 33.9 H MCHC 34.6 RDW 14.9 H Plt Count 74 L Seg Neutrophils % 65.8 Lymphocytes % 18.4 Monocytes % 8.9 Eosinophils % 6.2 H Basophils % 0.7 Absolute Neutrophils 2.9 Absolute Lymphocytes 0.8 Absolute Monocytes 0.4 Absolute Eosinophils 0.3 Absolute Basophils 0.0 Sodium 139.6 Potassium 3.8 Chloride 105 Carbon Dioxide 28 Anion Gap 7 BUN 12 Creatinine 0.82 Est GFR ( Amer) > 60 Est GFR (Non-Af Amer) > 60 Glucose 67 L Calcium 8.0 L Total Bilirubin 1.2 AST 31 ALT 23 Alkaline Phosphatase 143 H Total Protein 4.7 L Albumin 2.0 L 03/03/18 03/03/18 03/03/18 10:08 10:08 16:25 Creatine Kinase 46 L 35 L CK-MB (CK-2) 0.76 Troponin I < 0.012 03/03/18 03/03/18 03/03/18 16:25 22:00 22:00 Creatine Kinase 51 L CK-MB (CK-2) 0.74 0.69 Troponin I < 0.012 < 0.012 Impressions: Chest X-Ray 03/02/18 23:42 IMPRESSION: There is no acute pleural-parenchymal process seen in the imaged lung medellin. There are underlying changes of COPD with areas of parenchymal scarring seen in the bilateral midlung zones Abdomen/Pelvis CTA 03/03/18 00:57 IMPRESSION: No aortic dissection or aneurysm. No pulmonary embolus. Emphysema without pneumonia. Extensive ascites. Chest/Abdomen CTA 03/03/18 00:57 IMPRESSION: No aortic dissection or aneurysm. No pulmonary embolus. Emphysema without pneumonia. Extensive ascites. Assessment & Plan - Diagnosis (1) ascites due to cirrhosis Is this a current diagnosis for this admission?: Yes Plan: Patient has chronic recurrent diuretic-resistant ascites. He was noted to have a large ascites upon admission. A diagnostic tap was done in the ER which has ruled out SBP. Patient says that he wants to be go for the paracentesis again. His blood pressures chronically run in the 80s systolic at home even on midodrine. Yesterday, his pressures were in the 70s systolic and improved slightly to 88/50s after albumin infusion. Explained in length with patient and on bedside that he has diuretic resistant ascites from his end stage liver disease and that his chronic hypotension is very limiting to how much can be drained with the paracentesis. Discussed goals of care in length. He says he wants to be full code for now and refused palliative care referral at this time. Will give him albumin today and see if this improves his pressures. Explained that if his pressures continue to improve, we can attempt to drain a limited amount of the ascites tomorrow. (2) Hypotension Is this a current diagnosis for this admission?: Yes Plan: Likely related to his end stage liver disease. Patient does have chronic hypotension. Propanolol, bumex and sprinolactone have been held due to his low blood pressures. His blood pressures chronically run in the 80s systolic at home even on midodrine. Yesterday, his pressures were in the 70s systolic and improved slightly to 89/60s after albumin infusion. (3) Chronic hypoxemic respiratory failure Is this a current diagnosis for this admission?: Yes Plan: Secondary to alpha 1 antiptrypsin related COPD. Patient is at his baseline home O2 requirement. He is saturating well on 2L of NC. (4) Thrombocytopenia Is this a current diagnosis for this admission?: Yes Plan: Chronic thrombocytopenia related to end stage liver disease. No clinical signs of bleeding. (5) DVT prophylaxis Is this a current diagnosis for this admission?: Yes Plan: SCDs only. Patient has history of HIT and chronic thrombocytopenia. - Time Time Spent with patient: 25-34 minutes
[2018-03-05] MEDS: LEVALBUTEROL HCL NEB 1.25 MG/3 ML AMPUL NEB PRN ×2 (02:23→14:03)
[2018-03-05] MEDS: IPRATROPIUM BROMIDE 0.02% NEB 0.5 MG/2.5 ML AMPUL NEB PRN ×2 (02:23→14:03)
[2018-03-05] MEDS: MIDODRINE HCL 5 MG TABLET PO SCH ×3 (06:05→15:37)
[2018-03-05] MEDS: IPRATROPIUM/ALBUTEROL 0.5-2.5 MG/3 ML AMPUL NEB SCH ×2 (08:23→20:30)
[2018-03-05] MEDS: FLUDROCORTISONE ACETATE 0.1 MG TABLET PO SCH (09:19)
[2018-03-05] MEDS: DOCUSATE SODIUM 100 MG CAPSULE PO SCH (09:20)
[2018-03-05] MEDS: POTASSIUM CHLORIDE 10 MEQ CAPSULE.ER PO SCH (09:20)
--- NOTE | 2018-03-05 11:59 | PDOC PROGRESS REPORT ---
Subjective Progress Note for:: 03/05/18 Subjective:: Mr. 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 Patient has end stage liver disease and has been evaluated earlier this year at [facility] in [place] for OLT. Apparently, he was deemed to be a poor candidate for liver transplantation. He has been previously referred to palliative and possible hospice care but says he is not amenable for this transition yet. He has been having diuretic-resistant recurrent ascites with prior paracentesis. However, his chronic hypotension has been limiting the frequency of getting the paracentesis. He was noted to have a large ascites upon admission. A diagnostic tap was done in the ER which has ruled out SBP. Patient says that he wants to be go for the paracentesis again. His blood pressures chronically run in the 80s systolic at home even on midodrine. Yesterday, his pressures were in the 70s systolic and improved slightly to 89/60s after albumin infusion. Explained in length with patient and on bedside that he has diuretic resistant ascites from his end stage liver disease and that his chronic hypotension is very limiting to how much can be drained with the paracentesis. Explained that if his pressures continued to improve, we can attempt to drain a limited amount of the ascites. Discussed goals of care in length. He says he wants to be full code for now and refused palliative care referral at this time. No acute event overnight. Patient says he his abdominal distention has very slightly improved today. He does report of mild SOB from the distention today. No fever or chills. his blood pressures have improved to the 90/50s after albumin infusion. Reason For Visit: CHEST AND ABD PAIN ACITES Physical Exam Vital Signs: Temp Pulse Resp BP Pulse Ox 98.0 F 76 22 H 90/57 L 99 03/05/18 11:28 03/05/18 11:28 03/05/18 11:28 03/05/18 11:28 03/05/18 11:28 Intake & Output 03/04/18 03/05/18 03/06/18 06:59 06:59 06:59 Intake Total 1217 578 237 Output Total 250 540 100 Balance 967 38 137 Weight 157 lb 10.088 oz 158 lb 1.143 oz General appearance: PRESENT: no acute distress, well-developed, well-nourished Head exam: PRESENT: atraumatic, normocephalic Eye exam: PRESENT: conjunctiva pink, EOMI, PERRLA. ABSENT: scleral icterus Ear exam: PRESENT: normal external ear exam Mouth exam: PRESENT: moist, tongue midline Neck exam: ABSENT: carotid bruit, JVD, lymphadenopathy, thyromegaly Respiratory exam: PRESENT: clear to auscultation porfirio. ABSENT: rales, rhonchi, wheezes Cardiovascular exam: PRESENT: RRR. ABSENT: diastolic murmur, rubs, systolic murmur Pulses: PRESENT: normal dorsalis pedis pul GI/Abdominal exam: PRESENT: ascites, distended Rectal exam: PRESENT: deferred Neurological exam: PRESENT: alert, awake, oriented to person, oriented to place , oriented to time, oriented to situation, CN II-XII grossly intact. ABSENT: motor sensory deficit Results Laboratory Results: 03/04/18 04:16 03/04/18 04:16 03/03/18 03/03/18 03/03/18 10:08 10:08 16:25 Creatine Kinase 46 L 35 L CK-MB (CK-2) 0.76 Troponin I < 0.012 03/03/18 03/03/18 03/03/18 16:25 22:00 22:00 Creatine Kinase 51 L CK-MB (CK-2) 0.74 0.69 Troponin I < 0.012 < 0.012 Impressions: Chest X-Ray 03/02/18 23:42 IMPRESSION: There is no acute pleural-parenchymal process seen in the imaged lung medellin. There are underlying changes of COPD with areas of parenchymal scarring seen in the bilateral midlung zones Abdomen/Pelvis CTA 03/03/18 00:57 IMPRESSION: No aortic dissection or aneurysm. No pulmonary embolus. Emphysema without pneumonia. Extensive ascites. Chest/Abdomen CTA 03/03/18 00:57 IMPRESSION: No aortic dissection or aneurysm. No pulmonary embolus. Emphysema without pneumonia. Extensive ascites. Assessment & Plan - Diagnosis (1) ascites due to cirrhosis Is this a current diagnosis for this admission?: Yes Plan: Patient has chronic recurrent diuretic-resistant ascites. He was noted to have a large ascites upon admission. A diagnostic tap was done in the ER which has ruled out SBP. Patient says that he wants to be go for the paracentesis again. His blood pressures chronically run in the 80s systolic at home even on midodrine. On 03/03, his pressures were in the 70s systolic and improved slightly to 88/50s after albumin infusion. Explained in length with patient and on bedside that he has diuretic resistant ascites from his end stage liver disease and that his chronic hypotension is very limiting to how much can be drained with the paracentesis. Discussed goals of care in length. He says he wants to be full code for now and refused palliative care referral at this time. Blood pressures have slightly improved overnight to 90/50s after holding diuretics, propranolol and giving albumin. Will proceed with a limited abdominal tap tomorrow if his pressures continue to be in the systolic. (2) Hypotension Is this a current diagnosis for this admission?: Yes Plan: Likely related to his end stage liver disease. Patient does have chronic hypotension. Propanolol, bumex and sprinolactone have been held due to his low blood pressures. His blood pressures chronically run in the 80s systolic at home even on midodrine. Blood pressures have slightly improved overnight to 90/50s after holding diuretics, propranolol and giving albumin. Continue midodrine and Florinef. (3) Chronic hypoxemic respiratory failure Is this a current diagnosis for this admission?: Yes Plan: Secondary to alpha 1 antiptrypsin related COPD. Patient is at his baseline home O2 requirement. He is saturating well on 2L of NC. (4) Thrombocytopenia Is this a current diagnosis for this admission?: Yes Plan: Chronic thrombocytopenia related to end stage liver disease. No clinical signs of bleeding. (5) DVT prophylaxis Is this a current diagnosis for this admission?: Yes Plan: SCDs only. Patient has history of HIT and chronic thrombocytopenia. - Time Time Spent with patient: 15-24 minutes
[2018-03-05] MEDS ORDERED: ALBUTEROL SULFATE HFA (90 MCG/PUFF) 200 PUFF/8.5 GM MDI IH PRN (18:16)
[2018-03-06] MEDS: LEVALBUTEROL HCL NEB 1.25 MG/3 ML AMPUL NEB PRN ×2 (02:32→13:44)
[2018-03-06] MEDS: IPRATROPIUM BROMIDE 0.02% NEB 0.5 MG/2.5 ML AMPUL NEB PRN ×2 (02:32→13:44)
[2018-03-06] MEDS: MIDODRINE HCL 5 MG TABLET PO SCH ×3 (05:32→14:41)
[2018-03-06] MEDS: IPRATROPIUM/ALBUTEROL 0.5-2.5 MG/3 ML AMPUL NEB SCH ×2 (08:12→19:43)
[2018-03-06] MEDS ORDERED: MORPHINE SULFATE 10 MG/ML INJ IV ONE (09:00)
[2018-03-06] MEDS ORDERED: KETOROLAC TROMETHAMINE INJ/PF 30 MG/1 ML SDV IV PRN (09:43)
[2018-03-06] MEDS: POTASSIUM CHLORIDE 10 MEQ CAPSULE.ER PO SCH (11:13)
[2018-03-06] MEDS: FLUDROCORTISONE ACETATE 0.1 MG TABLET PO SCH (11:13)
[2018-03-06] MEDS: DOCUSATE SODIUM 100 MG CAPSULE PO SCH (11:13)
[2018-03-06] MEDS: LACTULOSE SYRUP 20 GM/30 ML UDCUP PO SCH (11:14)
--- NOTE | 2018-03-06 11:15 | RADIOLOGY REPORT (SQ) ---
EXAM DESCRIPTION: U/S ABD PARACENTESIS COMPLETED DATE/TIME: 03/06/2018 10:05 am REASON FOR STUDY: large ascites,drain [id number] max due to low BP COMPARISON Paracentesis 01/17/2018 LIMITATIONS: None. PROCEDURE: After obtaining informed consent, the patient was brought to the ultrasound suite. The p rocedure was performed with the patient on a gurney. Ultrasound was used to identify a prominent poc ket of ascites in the right lower quadrant. An appropriate access site was selected. The patient wa s prepped and draped in usual sterile fashion. The access site was anesthetized with 6 mL 1% lidoca ine. A [id number] needle was advanced into the fluid. After aspiration of fluid the needle, th e catheter was advanced off the needle into the fluid. A total of 1,000 mL of clear straw-colored fl uid was removed. The patient tolerated the procedure well left the department in satisfactory conditi on. IMPRESSION: Successful ultrasound-guided paracentesis COMMENT: Patient medication list reviewed: Yes- Quality ID# [id number]:Eligible professional attests to doc umenting in the medical record they obtained, updated, or reviewed the patient's current medications. TECHNICAL DOCUMENTATION: JOB ID: [id number] [employer]- All Rights Reserved Reading location - IP/workstation name: [email or web address]
[2018-03-06] MEDS: ALBUMIN HUMAN 12.5 GM/50 ML RTUINJ IV SCH ×2 (11:23→12:41)
--- NOTE | 2018-03-06 11:50 | PDOC PROGRESS REPORT ---
Subjective Progress Note for:: 03/06/18 Subjective:: Mr. 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 Patient has end stage liver disease and has been evaluated earlier this year at [facility] in [place] for OLT. Apparently, he was deemed to be a poor candidate for liver transplantation. He has been previously referred to palliative and possible hospice care but says he is not amenable for this transition yet. He has been having diuretic-resistant recurrent ascites with prior paracentesis. However, his chronic hypotension has been limiting the frequency of getting the paracentesis. He was noted to have a large ascites upon admission. A diagnostic tap was done in the ER which has ruled out SBP. Patient says that he wants to go for the paracentesis again. His blood pressures chronically run in the 80s systolic at home even on midodrine. Initially, his pressures were in the 70s systolic and improved slightly to 89/60s after albumin infusion. Explained in length with patient and on bedside that he has diuretic resistant ascites from his end stage liver disease and that his chronic hypotension is very limiting to how much can be drained with the paracentesis. Explained that if his pressures continued to improve, we can attempt to drain a limited amount of the ascites. Discussed goals of care in length. He says he wants to be full code for now and refused palliative care referral at this time. No acute event overnight. Patient says his abdomen feels more distended today. His blood pressures have improved to >90/60s after albumin infusions and holding off on his diuretics and propranolol. Surgery was also consulted for possible placement of permanent peritoneal cath. Surgery discussed risks and benefits with patient and patient prefers not to proceed with catheter placement due to higher risk of infection. Will proceed with paracentesis today. Reason For Visit: CHEST AND ABD PAIN ACITES Physical Exam Vital Signs: Temp Pulse Resp BP Pulse Ox 98.5 F 80 18 93/59 L 99 03/06/18 10:57 03/06/18 10:57 03/06/18 10:57 03/06/18 10:57 03/06/18 10:57 Intake & Output 03/05/18 03/06/18 03/07/18 06:59 06:59 06:59 Intake Total 578 974 100 Output Total 540 325 200 Balance 38 649 -100 Weight 158 lb 1.143 oz 161 lb 9.581 oz General appearance: PRESENT: no acute distress, well-developed, well-nourished Head exam: PRESENT: atraumatic, normocephalic Eye exam: PRESENT: conjunctiva pink, EOMI, PERRLA. ABSENT: scleral icterus Ear exam: PRESENT: normal external ear exam Mouth exam: PRESENT: moist, tongue midline Neck exam: ABSENT: carotid bruit, JVD, lymphadenopathy, thyromegaly Respiratory exam: PRESENT: clear to auscultation porfirio. ABSENT: rales, rhonchi, wheezes Cardiovascular exam: PRESENT: RRR. ABSENT: diastolic murmur, rubs, systolic murmur Pulses: PRESENT: normal dorsalis pedis pul GI/Abdominal exam: PRESENT: ascites, distended Rectal exam: PRESENT: deferred Neurological exam: PRESENT: alert, awake, oriented to person, oriented to place , oriented to time, oriented to situation, CN II-XII grossly intact. ABSENT: motor sensory deficit Results Laboratory Results: 03/04/18 04:16 03/04/18 04:16 03/03/18 03/03/18 03/03/18 10:08 10:08 16:25 Creatine Kinase 46 L 35 L CK-MB (CK-2) 0.76 Troponin I < 0.012 03/03/18 03/03/18 03/03/18 16:25 22:00 22:00 Creatine Kinase 51 L CK-MB (CK-2) 0.74 0.69 Troponin I < 0.012 < 0.012 Impressions: Chest X-Ray 03/02/18 23:42 IMPRESSION: There is no acute pleural-parenchymal process seen in the imaged lung medellin. There are underlying changes of COPD with areas of parenchymal scarring seen in the bilateral midlung zones Abdomen/Pelvis CTA 03/03/18 00:57 IMPRESSION: No aortic dissection or aneurysm. No pulmonary embolus. Emphysema without pneumonia. Extensive ascites. Chest/Abdomen CTA 03/03/18 00:57 IMPRESSION: No aortic dissection or aneurysm. No pulmonary embolus. Emphysema without pneumonia. Extensive ascites. Paracentesis Ultrasound 03/06/18 09:00 IMPRESSION: Successful ultrasound-guided paracentesis Assessment & Plan - Diagnosis (1) ascites due to cirrhosis Is this a current diagnosis for this admission?: Yes Plan: Patient has chronic recurrent diuretic-resistant ascites. He was noted to have a large ascites upon admission. A limited diagnostic tap was done in the ER which has ruled out SBP. Patient says that he wants to be go for the paracentesis again. His blood pressures chronically run in the 80s systolic at home even on midodrine. On 03/03, his pressures were in the 70s systolic and improved slightly to 88/50s after albumin infusion. Explained in length with patient and on bedside that he has diuretic resistant ascites from his end stage liver disease and that his chronic hypotension is very limiting to how much can be drained with the paracentesis. Discussed goals of care in length. He says he wants to be full code for now and refused palliative care referral at this time. No acute event overnight. Patient says his abdomen feels more distended today. His blood pressures have improved to >90/60s after albumin infusions and holding off on his diuretics and propranolol. Surgery was also consulted for possible placement of permanent peritoneal cath. Surgery discussed risks and benefits with patient and patient prefers not to proceed with catheter placement due to higher risk of infection. Will proceed with therapeutic paracentesis today. (2) Hypotension Is this a current diagnosis for this admission?: Yes Plan: Improved. Likely related to his end stage liver disease. Patient does have chronic hypotension. Propanolol, bumex and sprinolactone have been held due to his low blood pressures. His blood pressures chronically run in the 80s systolic at home even on midodrine. His blood pressures have improved to >90/60s after albumin infusions and holding off on his diuretics and propranolol. Continue midodrine and Florinef. (3) End stage liver disease Is this a current diagnosis for this admission?: Yes Plan: Diuretics on hold due to hypotension. Lactulose to maintain BM of 2-3x/day. (4) Chronic hypoxemic respiratory failure Is this a current diagnosis for this admission?: Yes Plan: Secondary to alpha 1 antiptrypsin related COPD. Patient is at his baseline home O2 requirement. He is saturating well on 2L of [place]. (5) Thrombocytopenia Is this a current diagnosis for this admission?: Yes Plan: Chronic thrombocytopenia related to end stage liver disease. No clinical signs of bleeding. (6) DVT prophylaxis Is this a current diagnosis for this admission?: Yes Plan: SCDs only. Patient has history of HIT and chronic thrombocytopenia. - Time Time Spent with patient: 15-24 minutes
[2018-03-06 14:06] LABS: APPEARANCE,URINE SLIGHTLY-CLOUDY; BILIRUBIN,URINE NEGATIVE (NEGATIVE); GLUCOSE, URINE NEGATIVE (NEGATIVE); KETONES,URINE NEGATIVE (NEGATIVE); LEUKOCYTE ESTERASE,URINE TRACE (NEGATIVE); NITRITE,URINE NEGATIVE (NEGATIVE); PROTEIN,URINE NEGATIVE (NEGATIVE); URINE SPECIFIC GRAVITY 1.023
[2018-03-06 14:07] LABS: COLOR,URINE DARK YELLOW
--- NOTE | 2018-03-06 16:38 | PDOC CONSULTATION ---
Consultation Consult Date: 03/06/18 Consult reason:: possible placement of indwelling peritoneal catheter History of Present Illness Admission Date/PCP: 03/03/18 05:00 ALFA GRANGER NP History of Present Illness: CHATO BRAXTON is a 62 year old male with end stage liver cirrhosis with recurrent/persistent peritoneal fluid. Patient is still a full code and looking at the possibility of indwelling peritoneal catheter because he does not like periodic paracentesis. Past Medical History Cardiac Medical History: Reports: Congestive Heart Failure, DVT, Myocardial Infarction, Hypertension - LOW, Pulmonary Embolism Denies: Coronary Artery Disease, Hyperlipidema Pulmonary Medical History: Reports: Chronic Obstructive Pulmonary Disease (COPD ) - on 2L nasal cannula., Pneumonia, Respiratory Failure Denies: Asthma, Bronchitis, Sleep Apnea, Tuberculosis Neurological Medical History: Denies: Seizures Endocrine Medical History: Reports: Diabetes Mellitus Type 2 - diet controlled. 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 Social History Lives with: Spouse/Significant other Smoking Status: Former Smoker Last Time Smoked: 1981 Frequency of Alcohol Use: None Hx Recreational Drug Use: No Drugs: None Hx Prescription Drug Abuse: No - Advance Directive Resuscitation Status: Full Code Family History Family History: CAD, Hypertension, Other - CHF Parental Family History Reviewed: Yes Children Family History Reviewed: No Sibling(s) Family History Reviewed.: No Medication/Allergy Home Medications: Albuterol Sulfate [Proair HFA Inhalation Aerosol 8.5 gm MDI] 2 puff IH Q4HP PRN 03/03/18 Alpha Lipoic Acid [Alpha Lipoic Acid 200 mg Tablet] 200 mg PO DAILY 03/03/18 Bumetanide [Bumex 1 mg Tablet] 1 mg PO DAILY 03/03/18 Docusate Sodium [Colace 100 mg Capsule] 100 mg PO DAILY 03/03/18 Levalbuterol HCl [Xopenex Neb 1.25 mg/3 ml Ampul] 1 vial NEB Q6HP PRN 03/03/18 Midodrine HCl [Proamatine 5 mg Tablet] 5 mg PO TID 03/03/18 Omeprazole 20 mg PO DAILY 03/03/18 Polyethylene Glycol 3350 [Miralax Powder 17 gm/Packet] 1 packet PO DAILYP PRN Potassium Chloride [Klor-Con 10 Meq Capsule ER] 30 meq PO DAILY 03/03/18 Propranolol HCl [Inderal 20 mg Tablet] 20 mg PO BID 03/03/18 Spironolactone [Aldactone] 50 mg PO DAILY 03/03/18 Tamsulosin HCl [Flomax 0.4 mg Cap.sr] 0.4 mg PO QPM 03/03/18 Theophylline Anhydrous [Partha-Dur 300 mg Tab.sr] 300 mg PO DAILY 03/03/18 Vitamin E (Dl, Acetate) [Vitamin E 400 Unit Capsule] 400 unit PO DAILY 03/03/18 Allergies/Adverse Reactions: Heparin Analogues [Heparin Agents] Allergy (Severe, Verified 03/02/18 23:46) Thrombocytopenia heparinoids [Heparinoids] Allergy (Severe, Verified 03/02/18 23:46) Thrombocytopenia doxycycline Allergy (Intermediate, Verified 03/02/18 23:46) RED FACE AND SWELLING codeine [Codeine] Allergy (Unknown, Verified 03/02/18 23:46) GI upset Penicillins Allergy (Unknown, Verified 03/02/18 23:46) Swelling promethazine [From Phenergan] Adverse Reaction (Verified 03/03/18 06:12) Review of Systems Constitutional: PRESENT: other - no chills/fever Cardiovascular: PRESENT: other - no cough/chest pains Gastrointestinal: PRESENT: other - no pains Genitourinary: PRESENT: other - no dysuria Neurological: PRESENT: weakness Physical Exam Vital Signs: Temp Pulse Resp BP Pulse Ox 97.3 F 69 18 100/51 L 99 03/06/18 15:43 03/06/18 15:43 03/06/18 15:43 03/06/18 15:43 03/06/18 15:43 Intake & Output 03/05/18 03/06/18 03/07/18 06:59 06:59 06:59 Intake Total 578 974 200 Output Total 540 325 200 Balance 38 649 0 Weight 71.7 kg 73.3 kg General appearance: PRESENT: no acute distress Head exam: PRESENT: atraumatic Eye exam: PRESENT: conjunctiva pink Mouth exam: PRESENT: moist Neck exam: PRESENT: full ROM Respiratory exam: PRESENT: clear to auscultation porfirio Cardiovascular exam: PRESENT: RRR Pulses: PRESENT: normal radial pulses Vascular exam: PRESENT: normal capillary refill GI/Abdominal exam: PRESENT: soft - distended with ascites Rectal exam: PRESENT: deferred Extremities exam: PRESENT: full ROM Musculoskeletal exam: PRESENT: ambulatory Neurological exam: PRESENT: alert, oriented to person, oriented to place, oriented to time, oriented to situation Psychiatric exam: PRESENT: appropriate affect Skin exam: PRESENT: normal color, warm Results Laboratory Results: 03/04/18 04:16 03/04/18 04:16 03/06/18 13:55 Urine Color DARK YELLOW Urine Appearance SLIGHTLY-CLOUDY Urine pH 5.0 Ur Specific [place] 1.023 Urine Protein NEGATIVE Urine Glucose (UA) NEGATIVE Urine Ketones NEGATIVE Urine Blood NEGATIVE Urine Nitrite NEGATIVE Ur Leukocyte Esterase TRACE H Urine WBC (Auto) 4 Urine RBC (Auto) 1 03/03/18 03/03/18 03/03/18 10:08 10:08 16:25 Creatine Kinase 46 L 35 L CK-MB (CK-2) 0.76 Troponin I < 0.012 03/03/18 03/03/18 03/03/18 16:25 22:00 22:00 Creatine Kinase 51 L CK-MB (CK-2) 0.74 0.69 Troponin I < 0.012 < 0.012 Impressions: Chest X-Ray 03/02/18 23:42 IMPRESSION: There is no acute pleural-parenchymal process seen in the imaged lung medellin. There are underlying changes of COPD with areas of parenchymal scarring seen in the bilateral midlung zones Abdomen/Pelvis CTA 03/03/18 00:57 IMPRESSION: No aortic dissection or aneurysm. No pulmonary embolus. Emphysema without pneumonia. Extensive ascites. Chest/Abdomen CTA 03/03/18 00:57 IMPRESSION: No aortic dissection or aneurysm. No pulmonary embolus. Emphysema without pneumonia. Extensive ascites. Paracentesis Ultrasound 03/06/18 09:00 IMPRESSION: Successful ultrasound-guided paracentesis Assessment & Plan - Diagnosis (1) Cirrhosis of liver Qualifiers: Hepatic cirrhosis type: unspecified hepatic cirrhosis Ascites presence: with ascites Qualified Code(s): K74.60 - Unspecified cirrhosis of liver; R18.8 - Other ascites; R18.8 - Other ascites Is this a current diagnosis for this admission?: Yes (2) End stage liver disease Is this a current diagnosis for this admission?: Yes (3) ascites due to cirrhosis Is this a current diagnosis for this admission?: Yes - Time Time Spent: 30 to 50 Minutes - Plan Summary Plan Summary: Long discussion with the patient regarding placement of indwelling peritoneal catheter. He does not like the risk of infection. He opted just to have periodic paracentesis. Dr Cee, the pt's hospitalist claiims that pt develops hypotension after paracentesis.A compromised may be to just removed 2-3 liters of ascites each time. Unfortunately, he will likely need more frequent paracentesis.
[2018-03-07] MEDS: LEVALBUTEROL HCL NEB 1.25 MG/3 ML AMPUL NEB PRN ×3 (01:56→20:01)
[2018-03-07] MEDS: MIDODRINE HCL 5 MG TABLET PO SCH ×3 (05:42→17:00)
[2018-03-07] MEDS: IPRATROPIUM/ALBUTEROL 0.5-2.5 MG/3 ML AMPUL NEB SCH (08:12)
[2018-03-07] MEDS: PROPRANOLOL HCL 20 MG TABLET PO SCH (09:10)
[2018-03-07] MEDS: FLUDROCORTISONE ACETATE 0.1 MG TABLET PO SCH (09:10)
[2018-03-07] MEDS: LACTULOSE SYRUP 20 GM/30 ML UDCUP PO SCH (09:10)
[2018-03-07] MEDS: POTASSIUM CHLORIDE 10 MEQ CAPSULE.ER PO SCH (09:10)
[2018-03-07] MEDS: DOCUSATE SODIUM 100 MG CAPSULE PO SCH ×2 (10:00→19:52)
[2018-03-07] MEDS: IPRATROPIUM BROMIDE 0.02% NEB 0.5 MG/2.5 ML AMPUL NEB PRN ×2 (13:54→20:01)
[2018-03-07] MEDS ORDERED: LACTULOSE SYRUP 20 GM/30 ML UDCUP PO PRN (17:41)
[2018-03-07] MEDS ORDERED: BISACODYL 10 MG SUPP.RECT PR PRN (17:43)
--- NOTE | 2018-03-07 18:19 | PDOC PROGRESS REPORT ---
Subjective Progress Note for:: 03/07/18 Subjective:: CHATO BRAXTON is a 62 year old male who presented with a 1 hour history of nausea and vomiting (acute onset, non-bloody emesis of gastric contents, similar to numerous prior episodes) with generalized severe abdominal pain. He admitted associated dyspnea at rest and increasing abdominal distention. In the emergency room he had hypotension and hypovolemia, a diagnostic paracentesis was performed along with a CT of the abdomen and pelvis, a basic chemistry profile and a CBC are were unremarkable. He was treated with IV fluids and blood pressure support with oral midodrine. Patient was also treated with propranolol for tachycardia but this has by and large been held due to its adverse effect and his blood pressure. 03/07/2018: Patient has been maintained with IV fluids and blood pressure support currently using midodrine with good success. He has been eating well with no nausea or vomiting and his abdominal distention, abdominal pain and dyspnea at rest are resolved or greatly improved with treatment. I have discussed with patient converting everything that he is currently taking in her regiment that he could manage at home. He is willing to do that today and plan for discharge tomorrow if all goes well in change of therapy. Additionally he is having significant problems with constipation and would like to have a complete evacuation of his bowels before he is discharged. He states that he goes to the bathroom and has some bowel movement but he does not feel like he is emptying his intestine very well and would like to have more laxative for this. This is been arranged by increasing the patient's lactulose and Colace and adding Dulcolax suppositories as needed. Reason For Visit: CHEST AND ABD PAIN ACITES Physical Exam Vital Signs: Temp Pulse Resp BP Pulse Ox 98.3 F 66 22 H 107/51 L 99 03/07/18 15:39 03/07/18 15:39 03/07/18 15:39 03/07/18 15:39 03/07/18 15:39 Intake & Output 03/05/18 03/06/18 03/07/18 23:59 23:59 23:59 Intake Total 694 800 664 Output Total 740 242 375 Balance -46 325 289 Weight 71.7 kg 73.3 kg 70.1 kg General appearance: PRESENT: no acute distress, cooperative Head exam: PRESENT: atraumatic, normocephalic Eye exam: PRESENT: conjunctiva pink. ABSENT: nystagmus, scleral icterus Ear exam: PRESENT: normal external ear exam. ABSENT: drainage Mouth exam: PRESENT: neck supple, tongue midline Neck exam: ABSENT: thyromegaly, tracheal deviation Respiratory exam: PRESENT: clear to auscultation porfirio, symmetrical, unlabored Cardiovascular exam: PRESENT: RRR. ABSENT: clicks, gallop, rubs Vascular exam: PRESENT: normal capillary refill. ABSENT: pallor GI/Abdominal exam: PRESENT: ascites, distended, firm, normal bowel sounds. ABSENT: rebound, tenderness Rectal exam: PRESENT: deferred Extremities exam: ABSENT: joint swelling, pedal edema Musculoskeletal exam: PRESENT: ambulatory. ABSENT: deformity, dislocation Neurological exam: PRESENT: alert, oriented to person, oriented to place, oriented to time, oriented to situation Psychiatric exam: PRESENT: appropriate affect, normal mood Skin exam: ABSENT: jaundice, rash, urticaria Results Laboratory Results: 03/04/18 04:16 03/04/18 04:16 03/03/18 03/03/18 03/03/18 10:08 10:08 16:25 Creatine Kinase 46 L 35 L CK-MB (CK-2) 0.76 Troponin I < 0.012 03/03/18 03/03/18 03/03/18 16:25 22:00 22:00 Creatine Kinase 51 L CK-MB (CK-2) 0.74 0.69 Troponin I < 0.012 < 0.012 Impressions: Chest X-Ray 03/02/18 23:42 IMPRESSION: There is no acute pleural-parenchymal process seen in the imaged lung medellin. There are underlying changes of COPD with areas of parenchymal scarring seen in the bilateral midlung zones Abdomen/Pelvis CTA 03/03/18 00:57 IMPRESSION: No aortic dissection or aneurysm. No pulmonary embolus. Emphysema without pneumonia. Extensive ascites. Chest/Abdomen CTA 03/03/18 00:57 IMPRESSION: No aortic dissection or aneurysm. No pulmonary embolus. Emphysema without pneumonia. Extensive ascites. Paracentesis Ultrasound 03/06/18 09:00 IMPRESSION: Successful ultrasound-guided paracentesis Assessment & Plan - Diagnosis (1) Hypotension Is this a current diagnosis for this admission?: Yes Plan: Patient is noted to have significant hypotension secondary to his hepatic disease and chronic ascites. He is currently being treated with midodrine to alleviate his daytime symptoms and thus far has been tolerating the treatment quite well. (2) Constipation Qualifiers: Constipation type: unspecified constipation type Qualified Code(s): K59.00 - Constipation, unspecified Is this a current diagnosis for this admission?: Yes Plan: Patient's constipation has been present since his admission. He admits having bowel movements but does not feel like he is completely evacuating his intestine. His lactulose will be increased to 20 g 3 times daily as needed constipation and his Colace will be increased to 200 mg twice daily and Dulcolax suppository will be used daily on a as needed basis. (3) Cirrhosis of liver Qualifiers: Hepatic cirrhosis type: unspecified hepatic cirrhosis Ascites presence: with ascites Qualified Code(s): K74.60 - Unspecified cirrhosis of liver; R18.8 - Other ascites; R18.8 - Other ascites Is this a current diagnosis for this admission?: Yes Plan: Patient has chronic hepatic cirrhosis at end-stage. There is no specific therapy for his hepatic disease. (4) End stage liver disease Is this a current diagnosis for this admission?: Yes Plan: Patient has chronic end-stage liver disease that has resulted in his severe ascites and subsequently has resulted in his chronic hypotension and dyspnea at rest due to the diaphragmatic dysfunction caused by the ascites. (5) Ascites Qualifiers: Ascites type: other type Qualified Code(s): R18.8 - Other ascites Is this a current diagnosis for this admission?: Yes Plan: The patient has massive abdominal ascites secondary to his hepatic cirrhosis and end-stage hepatic disease. His ascites is amenable to paracentesis but is resistant to diuretic therapy. Patient cannot tolerate significant paracentesis as the volume shift causes a significant hypovolemia and severe hypotension. - Time Time Spent with patient: Less than 15 minutes Medications reviewed and adjusted accordingly: Yes
[2018-03-07] MEDS: KETOROLAC TROMETHAMINE INJ/PF 30 MG/1 ML SDV IV PRN (21:40)
[2018-03-08] MEDS: LEVALBUTEROL HCL NEB 1.25 MG/3 ML AMPUL NEB PRN ×2 (02:25→08:57)
[2018-03-08] MEDS: IPRATROPIUM BROMIDE 0.02% NEB 0.5 MG/2.5 ML AMPUL NEB PRN ×2 (02:25→08:56)
[2018-03-08] MEDS: KETOROLAC TROMETHAMINE INJ/PF 30 MG/1 ML SDV IV PRN (06:39)
[2018-03-08] MEDS: MIDODRINE HCL 5 MG TABLET PO SCH ×2 (06:41→11:42)
[2018-03-08] MEDS: LACTULOSE SYRUP 20 GM/30 ML UDCUP PO SCH (09:43)
[2018-03-08] MEDS: POTASSIUM CHLORIDE 10 MEQ CAPSULE.ER PO SCH (09:45)
[2018-03-08] MEDS: FLUDROCORTISONE ACETATE 0.1 MG TABLET PO SCH (09:46)
[2018-03-08 11:40] VITALS: BP 93/46
[2018-03-08] MEDS: DOCUSATE SODIUM 100 MG CAPSULE PO SCH (11:42)
--- NOTE | 2018-03-08 11:49 | PDOC DISCHARGE SUMMARY ---
General - Admit/Disc Date/PCP Admission Date/Primary Care Provider: 03/03/18 05:00 ALFA GRANGER NP Discharge Date: 03/08/18 - Discharge Diagnosis (1) Hypotension Is this a current diagnosis for this admission?: Yes Summary: Patient is noted to have significant hypotension secondary to his hepatic disease and chronic ascites. He is currently being treated with midodrine to alleviate his daytime symptoms and thus far has been tolerating the treatment quite well. (2) Constipation Is this a current diagnosis for this admission?: Yes Summary: Patient's constipation has been present since his admission. He admits having bowel movements but does not feel like he is completely evacuating his intestine. His lactulose will be increased to 20 g 3 times daily as needed constipation and his Colace will be increased to 200 mg twice daily and Dulcolax suppository will be used daily on a as needed basis. (3) Cirrhosis of liver Is this a current diagnosis for this admission?: Yes Summary: Patient has chronic hepatic cirrhosis at end-stage. There is no specific therapy for his hepatic disease. (4) End stage liver disease Is this a current diagnosis for this admission?: Yes Summary: Patient has chronic end-stage liver disease that has resulted in his severe ascites and subsequently has resulted in his chronic hypotension and dyspnea at rest due to the diaphragmatic dysfunction caused by the ascites. (5) Ascites Is this a current diagnosis for this admission?: Yes Summary: The patient has massive abdominal ascites secondary to his hepatic cirrhosis and end-stage hepatic disease. His ascites is amenable to paracentesis but is resistant to diuretic therapy. Patient cannot tolerate aggressive paracentesis as the volume shift causes a significant hypovolemia and severe hypotension. - Additional Information Resuscitation Status: Full Code Discharge Diet: Regular Discharge Activity: Activity As Tolerated, Walk Frequently - As tolerated with help as tolerated maintaining activity even for short distances is very healthy. Prescriptions: Bisacodyl [Dulcolax 10 mg Supp.rect] 10 mg SC DAILYP PRN 30 Days #12 supp.rect PRN Reason: For Constipation Docusate Sodium [Colace 100 mg Capsule] 200 mg PO BID 30 Days #120 capsule Fludrocortisone Acetate [Florinef 0.1 mg Tablet] 0.05 mg PO DAILY 30 Days #30 tablet Ipratropium [place] [Atrovent 0.02% Neb 0.5 mg/2.5 ml Ampul] 0.5 mg NEB QIDP PRN 15 Days #60 vial.neb PRN Reason: Lactulose [Cephulac Syrup 20 gm/30 ml Udcup] 20 gm PO Q8HP PRN 30 Days #480 ml PRN Reason: Midodrine HCl [Proamatine 5 mg Tablet] 15 mg PO TID@0600,1100,1500 30 Days #270 tablet Home Medications: Albuterol Sulfate [Proair HFA Inhalation Aerosol 8.5 gm MDI] 2 puff IH Q4HP PRN 03/03/18 Alpha Lipoic Acid [Alpha Lipoic Acid 200 mg Tablet] 200 mg PO DAILY 03/03/18 Levalbuterol HCl [Xopenex Neb 1.25 mg/3 ml Ampul] 1 vial NEB Q6HP PRN 03/03/18 Omeprazole 20 mg PO DAILY 03/03/18 Polyethylene Glycol 3350 [Miralax Powder 17 gm/Packet] 1 packet PO DAILYP PRN Tamsulosin HCl [Flomax 0.4 mg Cap.sr] 0.4 mg PO QPM 03/03/18 Theophylline Anhydrous [Partha-Dur 300 mg Tab.sr] 300 mg PO DAILY 03/03/18 Vitamin E (Dl, Acetate) [Vitamin E 400 Unit Capsule] 400 unit PO DAILY 03/03/18 Bisacodyl [Dulcolax 10 mg Supp.rect] 10 mg SC DAILYP PRN 30 Days #12 supp.rect 03/08/18 Docusate Sodium [Colace 100 mg Capsule] 200 mg PO BID 30 Days #120 capsule 03/08 Fludrocortisone Acetate [Florinef 0.1 mg Tablet] 0.05 mg PO DAILY 30 Days #30 tablet 03/08/18 Ipratropium [place] [Atrovent 0.02% Neb 0.5 mg/2.5 ml Ampul] 0.5 mg NEB QIDP PRN 15 Days #60 vial.neb 03/08/18 Lactulose [Cephulac Syrup 20 gm/30 ml Udcup] 20 gm PO Q8HP PRN 30 Days #480 ml 03/08/18 Midodrine HCl [Proamatine 5 mg Tablet] 15 mg PO TID@0600,1100,1500 30 Days #270 tablet 03/08/18 Potassium Chloride [Klor-Con 10 Meq Capsule ER] 20 meq PO DAILY capsule.er Potassium Chloride [Klor-Con 10 Meq Capsule ER] 20 meq PO DAILY #0 03/08/18 History of Present Illness Patient complains of: Nausea vomiting and abdominal pain History of Present Illness: CHATO BRAXTON is a 62 year old male who presented with a 1 hour history of nausea and vomiting (acute onset, non-bloody emesis of gastric contents, similar to numerous prior episodes) with generalized severe abdominal pain. He admitted associated dyspnea at rest and increasing abdominal distention. In the emergency room he had hypotension and hypovolemia, a diagnostic paracentesis was performed along with a CT of the abdomen and pelvis, a basic chemistry profile and a CBC are were unremarkable. He was treated with IV fluids and blood pressure support with oral midodrine. Patient was also treated with propranolol for tachycardia but this has by and large been held due to its adverse effect and his blood pressure. Hospital Course Hospital Course: 03/07/2018: Patient has been maintained with IV fluids and blood pressure support currently using midodrine with good success. He has been eating well with no nausea or vomiting and his abdominal distention, abdominal pain and dyspnea at rest are resolved or greatly improved with treatment. I have discussed with patient converting everything that he is currently taking in her regiment that he could manage at home. He is willing to do that today and plan for discharge tomorrow if all goes well in change of therapy. Additionally he is having significant problems with constipation and would like to have a complete evacuation of his bowels before he is discharged. He states that he goes to the bathroom and has some bowel movement but he does not feel like he is emptying his intestine very well and would like to have more laxative for this. This is been arranged by increasing the patient's lactulose and Colace and adding Dulcolax suppositories as needed. 03/08/2018: Patient states he had an excellent bowel movement last night he continues to do well today with no nausea or vomiting. His abdomen remains mildly distended but he is not having abdominal pain and he is free of dyspnea at rest and even tolerate some mild exertion. He has been talking about going home since yesterday and is quite thrilled to be going home today. I discussed considering changing his status to hospice or palliative care but he expressed no interest in considering these options or even considering home health. Patient will be discharged home in improved and stable condition at this time and will follow up with his primary outpatient provider who manages his end- stage hepatic disease as soon as possible. Physical Exam Vital Signs: Temp Pulse Resp BP Pulse Ox 97.7 F 73 16 94/58 L 96 03/08/18 07:29 03/08/18 08:56 03/08/18 08:56 03/08/18 07:29 03/08/18 08:56 Intake & Output 03/06/18 03/07/18 03/08/18 23:59 23:59 23:59 Intake Total 800 664 Output Total 475 375 200 Balance 325 289 -200 Weight 73.3 kg 70.1 kg 71.5 kg General appearance: PRESENT: no acute distress, cooperative Head exam: PRESENT: atraumatic, normocephalic Eye exam: PRESENT: conjunctiva pink. ABSENT: scleral icterus Ear exam: PRESENT: normal external ear exam Mouth exam: PRESENT: neck supple Neck exam: ABSENT: tracheal deviation Respiratory exam: PRESENT: clear to auscultation porfirio, decreased breath sounds - Slightly decreased breath sounds in all [place], symmetrical, unlabored Cardiovascular exam: PRESENT: RRR. ABSENT: bradycardia, clicks, gallop, rubs, tachycardia Vascular exam: PRESENT: normal capillary refill. ABSENT: pallor GI/Abdominal exam: PRESENT: ascites, distended, normal bowel sounds, soft. ABSENT: firm, rigid, tenderness Rectal exam: PRESENT: deferred Extremities exam: ABSENT: joint swelling, pedal edema Musculoskeletal exam: ABSENT: deformity, dislocation Neurological exam: PRESENT: alert, oriented to person, oriented to place, oriented to time, oriented to situation Psychiatric exam: PRESENT: appropriate affect, normal mood Skin exam: ABSENT: jaundice, rash, urticaria Results Laboratory Results: 03/04/18 04:16 03/04/18 04:16 03/03/18 03/03/18 03/03/18 10:08 10:08 16:25 Creatine Kinase 46 L 35 L CK-MB (CK-2) 0.76 Troponin I < 0.012 03/03/18 03/03/18 03/03/18 16:25 22:00 22:00 Creatine Kinase 51 L CK-MB (CK-2) 0.74 0.69 Troponin I < 0.012 < 0.012 Impressions: Chest X-Ray 03/02/18 23:42 IMPRESSION: There is no acute pleural-parenchymal process seen in the imaged lung med[place]. There are underlying changes of COPD with areas of parenchymal scarring seen in the bilateral midlung zones Abdomen/Pelvis CTA 03/03/18 00:57 IMPRESSION: No aortic dissection or aneurysm. No pulmonary embolus. Emphysema without pneumonia. Extensive ascites. Chest/Abdomen CTA 03/03/18 00:57 IMPRESSION: No aortic dissection or aneurysm. No pulmonary embolus. Emphysema without pneumonia. Extensive ascites. Paracentesis Ultrasound 03/06/18 09:00 IMPRESSION: Successful ultrasound-guided paracentesis Qualifiers - * PATIENT BEING DISCHARGED WITH ANY OF THE FOLLOWING DIAGNOSIS: No Plan Discharge Plan: Discharged home in improved and stable condition.
== END 2018-03-08 12:00 | disposition home or self-care (01) | DRG 433 ==
LOC: ER 23:13 → EH 03-03 05:00 → 3W 03-03 05:53
PROVIDERS: ADMIT Internal Medicine; ATTEND Internal Medicine
PROC: 3E0F73Z Introduction of Anti-inflammatory into Respiratory Tract, Via Natural or Artificial Opening (ICD-10-PCS; 2018-03-03)
PROC: 0W9G30Z Drainage of Peritoneal Cavity with Drainage Device, Percutaneous Approach (ICD-10-PCS; principal; 2018-03-06)
DX: K74.60 Unspecified cirrhosis of liver (principal); R18.8 Other ascites; J96.11 Chronic respiratory failure with hypoxia; I50.32 Chronic diastolic (congestive) heart failure; I11.0 Hypertensive heart disease with heart failure; I95.9 Hypotension, unspecified; K59.00 Constipation, unspecified; K72.90 Hepatic failure, unspecified without coma; E11.9 Type 2 diabetes mellitus without complications; E88.01 Alpha-1-antitrypsin deficiency; K21.9 Gastro-esophageal reflux disease without esophagitis; M19.90 Unspecified osteoarthritis, unspecified site; F32.9 Major depressive disorder, single episode, unspecified; J43.9 Emphysema, unspecified; D69.59 Other secondary thrombocytopenia; I25.2 Old myocardial infarction; Z99.81 Dependence on supplemental oxygen; Z79.899 Other long term (current) drug therapy; Z86.718 Personal history of other venous thrombosis and embolism; Z86.14 Personal history of Methicillin resistant Staphylococcus aureus infection; Z87.891 Personal history of nicotine dependence; Z88.6 Allergy status to analgesic agent; Z88.3 Allergy status to other anti-infective agents; Z88.0 Allergy status to penicillin; Z88.8 Allergy status to other drugs, medicaments and biological substances; Z82.49 Family history of ischemic heart disease and other diseases of the circulatory system
CPT/HCPCS: 36415; 49083; 71045; 71275; 74174; 80053; 81001; 82550; 82553; 83605; 83615; 83690; 83735; 84134; 84484; 85025; 85610; 87070; 87075; 87205; 89050; 93005; 93010; 94640; 99291; J1885; J2270; J3490; J7620; P9047

== ENCOUNTER 2018-03-13 23:31 | Inpatient (IN) | payer MEDICARE, OTHER ==
--- NOTE | 2018-03-14 00:30 | ER Document Report ---
ED General - General Mode of Arrival: Ambulatory Information source: Patient TRAVEL OUTSIDE OF THE [place] IN LAST 30 DAYS: No <DAX SQUIRES - Last Filed: 03/14/18 02:07> <ASHLEY WANG - Last Filed: 03/14/18 03:51> - General Chief Complaint: Palpitations Stated Complaint: PALPITATIONS Time Seen by Provider: 03/14/18 00:11 Notes: 62-year-old male who presents to the emergency department today with complaints of a heart racing sensation. Patient also has shortness of breath which is a chronic issue for him and he states his shortness of breath today is baseline for him. Patient had a paracentesis on 03/06 at this facility. Patient had 1 L of fluid drawn off and would have had more however there was concern for the patient's hypotension. Patient was started on midodrine for the hypotension on March 09. (DAX SQUIRES) - Related Data Allergies/Adverse Reactions: Heparin Analogues [Heparin Agents] Allergy (Severe, Verified 03/02/18 23:46) Thrombocytopenia heparinoids [Heparinoids] Allergy (Severe, Verified 03/02/18 23:46) Thrombocytopenia doxycycline Allergy (Intermediate, Verified 03/02/18 23:46) RED FACE AND SWELLING codeine [Codeine] Allergy (Unknown, Verified 03/02/18 23:46) GI upset Penicillins Allergy (Unknown, Verified 03/02/18 23:46) Swelling promethazine [From Phenergan] Adverse Reaction (Verified 03/03/18 06:12) Past Medical History - General Information source: Patient - Social History Smoking Status: Current Every Day Smoker Cigarette use (# per day): Yes Frequency of alcohol use: None Drug Abuse: None Lives with: Family Family History: Reviewed & Not Pertinent, CAD, Hypertension, Other - CHF Patient has suicidal ideation: No Patient has homicidal ideation: No - Past Medical History Cardiac Medical History: Reports: Hx Congestive Heart Failure, Hx DVT, Hx Heart Attack, Hx Hypertension - LOW, Hx Pulmonary Embolism Pulmonary Medical History: Reports: Hx COPD - on 2L nasal cannula., Hx Pneumonia , Hx Respiratory Failure Endocrine Medical History: Reports: Hx Diabetes Mellitus Type 2 - diet controlled. GI Medical History: Reports: Hx Cirrhosis - secondary to alpha-1 antitrypsin deficiency., Hx Gastroesophageal Reflux Disease Musculoskeletal Medical History: Reports Hx Arthritis Psychiatric Medical History: Reports: Hx Depression Infectious Medical History: Reports: Hx C-Diff, Hx MRSA Past Surgical History: Reports: Hx Cardiac Catheterization, Other - Left chest tube insertion; lung biopsy. - Immunizations Hx Diphtheria, Pertussis, Tetanus Vaccination: Yes Hx Pneumococcal Vaccination: 04/05/14 <DAX SQUIRES - Last Filed: 03/14/18 02:07> Review of Systems - Review of Systems Constitutional: No symptoms reported EENT: No symptoms reported Cardiovascular: See HPI, Heart racing Respiratory: See HPI, Short of breath Gastrointestinal: No symptoms reported Genitourinary: No symptoms reported Male Genitourinary: No symptoms reported Musculoskeletal: No symptoms reported Skin: No symptoms reported Hematologic/Lymphatic: No symptoms reported Neurological/Psychological: No symptoms reported -: Yes All other systems reviewed and negative <DAX SQUIRES - Last Filed: 03/14/18 02:07> Physical Exam <DAX SQUIRES - Last Filed: 03/14/18 02:07> <ASHLEY WANG - Last Filed: 03/14/18 03:51> - Vital signs Vitals: Temp Pulse Resp BP Pulse Ox 97.2 F 142 H 20 110/63 95 03/13/18 23:37 03/13/18 23:37 03/13/18 23:37 03/13/18 23:37 03/13/18 23:37 - Notes Notes: Physical Exam: General: Alert, appears tired and fatigued. HEENT: Normocephalic. Atraumatic. PERRL. Extraocular movements intact. Oropharynx clear. Dry mouth. Neck: Supple. Non-tender. Respiratory: 98% on 2-3L via nasal canula. Rhonchi and wheezing bilaterally. Tachypneic. Cardiovascular: Tachycardic, regular rhythm. Abdominal: Ascites. Non-tender. No distension. Normal Bowel Sounds. Back: Non-tender. No deformity or step off. Extremities: Moves all four extremities. Upper extremities: Normal inspection. Normal ROM. Lower extremities: Normal inspection. No edema. Normal ROM. Neurological: Normal cognition. AAOx4. Normal speech. Psychological: Normal affect. Normal Mood. Skin: Warm. Dry. Normal color. (DAX SQUIRES) Course - Laboratory Result Diagrams: 03/14/18 00:13 03/14/18 00:13 <DAX SQUIRES - Last Filed: 03/14/18 02:07> - Laboratory Result Diagrams: 03/14/18 00:13 03/14/18 00:13 - Diagnostic Test Radiology reviewed: Image reviewed, Reports reviewed - Chronic emphysematous changes with scarring on the right medial lung. No acute changes. - EKG Interpretation by Me EKG shows normal: Sinus rhythm, [place], Intervals. abnormal: QRS Complexes - Borderline R wave progression in the anterior leads, ST-T Waves - Diffuse nonspecific T wave abnormalities Rate: Tachycardia - 136 [place]/QRS: Right axis deviation When compared to previous EKG there are: No significant change - Consults Dr. 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 He recommended I try giving him some Cardizem IV to see if that would slow his rate. I am going to have the patient start drinking water as his mouth is quite dry and he does look a little dehydrated. His creatinine is a little higher today than when he was admitted last week. He will also get a small dose of Cardizem at 10 mg IV to see how that affects his tachycardia. (ASHLEY WANG) - Vital Signs Vital signs: Temp Pulse Resp BP Pulse Ox 97.2 F 142 H 19 95/57 L 99 03/13/18 23:37 03/13/18 23:37 03/14/18 03:33 03/14/18 03:33 03/14/18 03:33 - Laboratory Laboratory results interpreted by me: 03/14/18 03/14/18 03/14/18 00:13 00:13 01:24 RBC 4.23 L MCV 100 H MCH 34.3 H RDW 15.6 H Plt Count 96 L Lymphocytes % 11.3 L Total Bilirubin 1.5 H Direct Bilirubin 0.5 H AST 62 H Alkaline Phosphatase 210 H Albumin 3.1 L Urine Urobilinogen 4.0 H Discharge <DAX SQUIRES - Last Filed: 03/14/18 02:07> - Discharge Admitting Provider: Hospitalist Unit Admitted: Telemetry <ASHLEY WANG - Last Filed: 03/14/18 03:51> - Discharge Clinical Impression: Tachycardia COPD (chronic obstructive pulmonary disease) Qualifiers: COPD type: unspecified COPD Qualified Code(s): J44.9 - Chronic obstructive pulmonary disease, unspecified Condition: Fair Disposition: ADMITTED INPATIENT Referrals: ALFA GRANGER, FIN[employer]ENT [Primary Care Provider] - Follow up as needed Scribe Attestation: 03/14/18 01:46 I personally performed the services described in the documentation, reviewed and edited the documentation which was dictated to the scribe in my presence, and it accurately records my words and actions. (ASHLEY WANG) Scribe Documentation - Scribe Written by Chris:: Chris Good, 03/14/2018 [id number] acting as scribe for :: Osbaldo <DAX SQUIRES - Last Filed: 03/14/18 02:07>
[2018-03-14 00:47] LABS: ABSOLUTE EOSINOPHILS # (AUTO) 0.3 10^3/uL (0.0-0.6); ABSOLUTE LYMPHOCYTES (AUTO) 0.7 10^3/uL (0.5-4.7); ABSOLUTE MONOCYTES (AUTO) 0.5 10^3/uL (0.1-1.4); ABSOLUTE NEUT (AUTO) 4.8 10^3/uL (1.7-8.2); BASOPHILS % (AUTO) 0.3 % (0-2); EOSINOPHILS % (AUTO) 4.3 % (0-6); HEMATOCRIT 42.1 % (37.9-51.0); HEMOGLOBIN 14.5 g/dL (13.5-17.0); LYMPHOCYTES % (AUTO) 11.3 % (13-45); MEAN CORPUSCULAR HEMOGLOBIN 34.3 pg (27.0-33.4); MEAN CORPUSCULAR HGB CONC 34.5 g/dL (32.0-36.0); MEAN CORPUSCULAR VOLUME 100 fl (80-97); MONOCYTES % (AUTO) 7.3 % (3-13); RED BLOOD COUNT 4.23 10^6/uL (4.35-5.55); RED CELL DISTRIBUTION WIDTH 15.6 % (11.5-14.0); SEGMENTED NEUTROPHILS % (AUTO) 76.8 % (42-78); TOTAL CELLS COUNTED % (AUTO) 100 %; WHITE BLOOD COUNT 6.2 10^3/uL (4.0-10.5)
[2018-03-14 01:06] LABS: ALANINE AMINOTRANSFERASE 26 U/L (21-72); ALBUMIN 3.1 g/dL (3.5-5.0); ALKALINE PHOSPHATASE 210 U/L (38-126); ANION GAP 11 (5-19); ASPARTATE AMINO TRANSFERASE 62 U/L (17-59); BILIRUBIN,DIRECT 0.5 mg/dL (0.0-0.4); BILIRUBIN,TOTAL 1.5 mg/dL (0.2-1.3); BLOOD UREA NITROGEN 11 mg/dL (7-20); CALCIUM 8.4 mg/dL (8.4-10.2); CARBON DIOXIDE 26 mmol/L (22-30); CHLORIDE 104 mmol/L (98-107); CREATINE KINASE 137 U/L (55-170); GLUCOSE 86 mg/dL (75-110); SODIUM 140.7 mmol/L (137-145); TOTAL PROTEIN 6.9 g/dL (6.3-8.2)
[2018-03-14 01:07] LABS: PLATELET COUNT 96 10^3/uL (150-450)
[2018-03-14 01:16] LABS: CREATINE KINASE MB 1.38 ng/mL (<4.55)
[2018-03-14 01:28] LABS: TROPONIN I < 0.012 ng/mL
[2018-03-14 01:32] LABS: APPEARANCE,URINE CLEAR; BILIRUBIN,URINE NEGATIVE (NEGATIVE); COLOR,URINE AMBER; GLUCOSE, URINE NEGATIVE (NEGATIVE); KETONES,URINE NEGATIVE (NEGATIVE); LEUKOCYTE ESTERASE,URINE NEGATIVE (NEGATIVE); NITRITE,URINE NEGATIVE (NEGATIVE); PROTEIN,URINE NEGATIVE (NEGATIVE); URINE SPECIFIC GRAVITY 1.024
[2018-03-14] MEDS ORDERED: DILTIAZEM HCL INJ 25 MG/5 ML VIAL IV ONE (01:42)
--- NOTE | 2018-03-14 02:02 | RADIOLOGY REPORT (SQ) ---
EXAM DESCRIPTION: XR CHEST 1 VIEW COMPLETED DATE/TME: 03/14/2018 00:33 CLINICAL HISTORY: 62 years, Male, Tachycardia, short of breath COMPARISON: 03/02/2018 NUMBER OF VIEWS: One TECHNIQUE: AP view of the chest LIMITATIONS: None. FINDINGS: The lungs are emphysematous with scarring along the right mid lung. There is blunting of the costophrenic angles, likely due to pleural thickening. There is no pneumothorax. The heart is normal in size. The bones are unchanged. IMPRESSION: No significant change compared to the prior exam. Emphysematous lungs with scarring along the right midlung. 2010 [employer]- All Rights Reserved
[2018-03-14] MEDS ORDERED: DILTIAZEM HCL/D5W 125 MG/125 ML RTUINJ IV PRN (02:34)
[2018-03-14] MEDS ORDERED: DILTIAZEM HCL/D5W 125 MG/125 ML RTUINJ IV ONE (02:44)
[2018-03-14] MEDS ORDERED: PROPRANOLOL HCL 20 MG TABLET PO ONE (04:50)
[2018-03-14] MEDS ORDERED: ACETAMINOPHEN 325 MG TABLET PO PRN (05:05)
[2018-03-14] MEDS ORDERED: PROMETHAZINE HCL 25 MG TABLET PO PRN (05:05)
[2018-03-14] MEDS ORDERED: METOCLOPRAMIDE HCL INJ/PF 10 MG/2 ML SDV IV PRN (05:05)
[2018-03-14] MEDS ORDERED: MAG HYDROX/AL HYDROX/SIMETH SUSP 30 ML UDCUP PO PRN (05:05)
--- NOTE | 2018-03-14 06:01 | PDOC H&P ---
History of Present Illness Admission Date/PCP: 03/14/18 04:07 ALFA GRANGER NP Patient complains of: Palpitations History of Present Illness: CHATO BRAXTON is a 62 year old male with extensive medical history which includes chronic respiratory failure secondary to COPD on 2 L oxygen at home 24 hours a day secondary to COPD, alpha antitrypsin deficiency with liver and pulmonary involvement, liver cirrhosis with chronic ascites and history of paracentesis, moderate diastolic heart failure, midodrine dependent hypotension , history of pulmonary emboli and DVT on anticoagulation, profound debility in between orders. Patient tells me that he woke up last night and she was feeling off so he decided to use his pulse oximeter and realized that he has rate was in the 140s, his oxygen saturations was 92% on 2 L oxygen that seems to be to be close to his baseline. He does lay on the bed waiting for this to improve while when he recheck his heart rate was a stable high. Symptoms associated with chest tightness worsening shortness of breath and palpitations. Patient has multiple admissions to our facility and was last at discharge on March 08, apparently during that discharge his propranolol was discontinued. Patient also complains of abdominal tightness like his last paracentesis was on 03/06 where they could only remove 1 L of fluids secondary to his hypotension. EKG shows sinus tachycardia with a ventricular rate of 136 bpm, right axis deviation. In the emergency department Dr. Narayan from the cardiology department was consulted and he recommended to give IV Cardizem 10 mg IV and subsequently the attending decided to place him on Cardizem infusion. By the time I went to see him in his car rate was in the 120s with a blood pressure systolic 90-100/60-70's Past Medical History Cardiac Medical History: Reports: Congestive Heart Failure, DVT, Myocardial Infarction, Hypertension - LOW, Pulmonary Embolism Denies: Coronary Artery Disease, Hyperlipidema Pulmonary Medical History: Reports: Chronic Obstructive Pulmonary Disease (COPD ) - on 2L nasal cannula., Pneumonia, Respiratory Failure Denies: Asthma, Bronchitis, Sleep Apnea, Tuberculosis Neurological Medical History: Denies: Seizures Endocrine Medical History: Reports: Diabetes Mellitus Type 2 - diet controlled. 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 Social History Lives with: Family Smoking Status: Current Every Day Smoker Frequency of Alcohol Use: None Hx Recreational Drug Use: No Drugs: None Hx Prescription Drug Abuse: No Family History Family History: Reviewed & Not Pertinent, CAD, Hypertension, Other - CHF Parental Family History Reviewed: Yes Children Family History Reviewed: Yes Sibling(s) Family History Reviewed.: Yes Medication/Allergy Home Medications: Albuterol Sulfate [Proair HFA Inhalation Aerosol 8.5 gm MDI] 2 puff IH Q4HP PRN 03/03/18 Alpha Lipoic Acid [Alpha Lipoic Acid 200 mg Tablet] 200 mg PO DAILY 03/03/18 Levalbuterol HCl [Xopenex Neb 1.25 mg/3 ml Ampul] 1 vial NEB Q6HP PRN 03/03/18 Omeprazole 20 mg PO DAILY 03/03/18 Polyethylene Glycol 3350 [Miralax Powder 17 gm/Packet] 1 packet PO DAILYP PRN Tamsulosin HCl [Flomax 0.4 mg Cap.sr] 0.4 mg PO QPM 03/03/18 Theophylline Anhydrous [Partha-Dur 300 mg Tab.sr] 300 mg PO DAILY 03/03/18 Vitamin E (Dl, Acetate) [Vitamin E 400 Unit Capsule] 400 unit PO DAILY 03/03/18 Bisacodyl [Dulcolax 10 mg Supp.rect] 10 mg [place] DAILYP PRN 30 Days #12 supp.rect 03/08/18 Docusate Sodium [Colace 100 mg Capsule] 200 mg PO BID 30 Days #120 capsule 03/08 Fludrocortisone Acetate [Florinef 0.1 mg Tablet] 0.05 mg PO DAILY 30 Days #30 tablet 03/08/18 Ipratropium [place] [Atrovent 0.02% Neb 0.5 mg/2.5 ml Ampul] 0.5 mg NEB QIDP PRN 15 Days #60 vial.neb 03/08/18 Lactulose [Cephulac Syrup 20 gm/30 ml Udcup] 20 gm PO Q8HP PRN 30 Days #480 ml 03/08/18 Midodrine HCl [Proamatine 5 mg Tablet] 15 mg PO TID@0600,1100,1500 30 Days #270 tablet 03/08/18 Potassium Chloride [Klor-Con 10 Meq Capsule ER] 20 meq PO DAILY capsule.er Potassium Chloride [Klor-Con 10 Meq Capsule ER] 20 meq PO DAILY #0 03/08/18 Allergies/Adverse Reactions: Heparin Analogues [Heparin Agents] Allergy (Severe, Verified 03/02/18 23:46) Thrombocytopenia heparinoids [Heparinoids] Allergy (Severe, Verified 03/02/18 23:46) Thrombocytopenia doxycycline Allergy (Intermediate, Verified 03/02/18 23:46) RED FACE AND SWELLING codeine [Codeine] Allergy (Unknown, Verified 03/02/18 23:46) GI upset Penicillins Allergy (Unknown, Verified 03/02/18 23:46) Swelling morphine Adverse Reaction (Verified 03/14/18 05:54) VOMITING promethazine [From Phenergan] Adverse Reaction (Verified 03/03/18 06:12) Review of Systems Review of Systems: As outlined in the HPI, all others negative Physical Exam Vital Signs: Temp Pulse Resp BP Pulse Ox 97.8 F 115 H 20 92/57 L 94 03/14/18 05:05 03/14/18 05:05 03/14/18 05:05 03/14/18 05:05 03/14/18 05:05 Intake & Output 03/12/18 03/13/18 03/14/18 06:59 06:59 06:59 Intake Total 4 Balance 4 Additional comments: General appearance: Cachectic, alert and cooperative, and appears to be in no acute distress, wearing nasal cannula. Head: Normocephalic Eyes: PEERL, EOMI, vision is grossly intact. Ears: External auditory canal and tympanic membranes clear, hearing grossly intact. Nose: No nasal discharge. Throat: Oral cavity and pharynx normal. No inflammation, swelling, exudate or lesions. Neck: Neck supple, nontender without lymphadenopathy, masses or thyromegaly. Cardiac: Normal S1 and S2. No S3, S4 or murmurs. Rhythm is regular and tachycardic. There is no cyanosis or pallor. Extremities are warm and well perfused. Capillary refill is less than 2 seconds. No carotid bruits. Lungs: Bilateral decreased breath sounds with diffuse crackles more than faces, mild expiratory wheezing, do not appreciate rhonchi. Not using accessory muscles. Abdomen: Distant bowel sounds. Firm. very distended, nontender. No guarding or rebound. Extremities: No significant deformity or joint abnormality. 2+ pitting edema. Peripheral pulses intact. Neurological: Cranial nerves II through XII grossly intact. Strength and sensation symmetric and intact throughout. Reflexes 2+ throughout. Skin: Skin pale, normal texture and turgor with no lesions or eruptions, warm and dry. Psychiatric: The mental examination revealed the patient was oriented to person , place, and time. The patient was able to demonstrate good judgment on recent , without hallucinations, abnormal affect or abnormal behaviors. Results Laboratory Results: 03/14/18 03/14/18 03/14/18 00:13 00:13 00:13 WBC 6.2 RBC 4.23 L Hgb 14.5 Hct 42.1 MCV 100 H MCH 34.3 H MCHC 34.5 RDW 15.6 H Plt Count 96 L Seg Neutrophils % 76.8 Lymphocytes % 11.3 L Monocytes % 7.3 Eosinophils % 4.3 Basophils % 0.3 Absolute Neutrophils 4.8 Absolute Lymphocytes 0.7 Absolute Monocytes 0.5 Absolute Eosinophils 0.3 Absolute Basophils 0.0 Sodium 140.7 Potassium 4.0 Chloride 104 Carbon Dioxide 26 Anion Gap 11 BUN 11 Creatinine 1.05 Est GFR ( Amer) > 60 Est GFR (Non-Af Amer) > 60 Glucose 86 Calcium 8.4 Magnesium Total Bilirubin 1.5 H Direct Bilirubin 0.5 H AST 62 H ALT 26 Alkaline Phosphatase 210 H Creatine Kinase 137 CK-MB (CK-2) 1.38 Troponin I < 0.012 Total Protein 6.9 Albumin 3.1 L Urine Color Urine Appearance Urine pH Ur Specific [place] Urine Protein Urine Glucose (UA) Urine Ketones Urine Blood Urine Nitrite Urine Bilirubin Urine Urobilinogen Ur Leukocyte Esterase Urine WBC (Auto) Squamous Epi Cells Auto Urine Mucus (Auto) Urine Ascorbic Acid 03/14/18 03/14/18 00:13 01:24 WBC RBC Hgb Hct MCV MCH MCHC RDW Plt Count Seg Neutrophils % Lymphocytes % Monocytes % Eosinophils % Basophils % Absolute Neutrophils Absolute Lymphocytes Absolute Monocytes Absolute Eosinophils Absolute Basophils Sodium Potassium Chloride Carbon Dioxide Anion Gap BUN Creatinine Est GFR ( Amer) Est GFR (Non-Af Amer) Glucose Calcium Magnesium 1.9 Total Bilirubin Direct Bilirubin AST ALT Alkaline Phosphatase Creatine Kinase CK-MB (CK-2) Troponin I Total Protein Albumin Urine Color YANNICK Urine Appearance CLEAR Urine pH 5.0 Ur Specific [place] 1.024 Urine Protein NEGATIVE Urine Glucose (UA) NEGATIVE Urine Ketones NEGATIVE Urine Blood NEGATIVE Urine Nitrite NEGATIVE Urine Bilirubin NEGATIVE Urine Urobilinogen 4.0 H Ur Leukocyte Esterase NEGATIVE Urine WBC (Auto) 1 Squamous Epi Cells Auto 1 Urine Mucus (Auto) MANY Urine Ascorbic Acid NEGATIVE Impressions: Chest X-Ray 03/14/18 00:33 IMPRESSION: No significant change compared to the prior exam. Emphysematous lungs with scarring along the right midlung. 2010 [employer]- All Rights Reserved Assessment & Plan - Diagnosis (1) Tachycardia Is this a current diagnosis for this admission?: Yes Plan: Patient was discharged on 03/08, comes back with symptomatic tachycardia up to 140s. During his last discharge he is propranolol was held, I suspect this is the etiology of his symptoms. I will restart his propranolol 20 mg p.o. twice a day and will discontinue the Cardizem drip, will closely monitor. Cardiology has been consulted. Continue telemetry monitoring. (2) Chronic diastolic CHF (congestive heart failure) Is this a current diagnosis for this admission?: Yes Plan: Patient was taken off his low-dose of Lasix, likely secondary to his hypotension , his fluid overload is getting worse so we will go ahead and place him back on his 10 mg of p.o. Lasix and follow along with him as he is on the high dose of Midodrine and is on fludrocortisone. (3) Chronic hypotension Is this a current diagnosis for this admission?: Yes Plan: Patient is on Midodrin 6 AM, 9 AM, 12 mm and 3 PM along with fludrocortisone, his blood pressure has been decent in the ED. Only drop after the 10 mg of IV Cardizem to 87/54. (4) Chronic hypoxemic respiratory failure Is this a current diagnosis for this admission?: Yes Plan: Patient has mild worsening respiratory symptom, I suspect that is secondary to his worsening ascites, he is on 2 L of oxygen at home and is saturating 94% in the ED. Continue with home bronchodilators, will be on nebulizer treatments as needed. (5) Cirrhosis of liver Qualifiers: Hepatic cirrhosis type: other cirrhosis Qualified Code(s): K74.69 - Other cirrhosis of liver Is this a current diagnosis for this admission?: Yes Plan: Patient is on an stages, continue with home medications. Will probably need paracentesis during this admission. Continue with home medications. (6) [id number] deficiency Is this a current diagnosis for this admission?: Yes (7) DVT prophylaxis Is this a current diagnosis for this admission?: Yes Plan: SCDs as per his thrombocytopenia on heparin allergies.
[2018-03-14] MEDS ORDERED: BISACODYL 10 MG SUPP.RECT PR PRN (06:02)
[2018-03-14] MEDS ORDERED: POLYETHYLENE GLYCOL 3350 POWDER 17 GM/1 PACKET PO PRN (06:02)
[2018-03-14] MEDS ORDERED: LACTULOSE SYRUP 20 GM/30 ML UDCUP PO PRN (06:02)
[2018-03-14] MEDS ORDERED: ALBUTEROL SULFATE HFA (90 MCG/PUFF) 200 PUFF/8.5 GM MDI IH PRN (06:02)
[2018-03-14] MEDS ORDERED: LEVALBUTEROL HCL NEB 1.25 MG/3 ML AMPUL NEB PRN (06:02)
[2018-03-14] MEDS: IPRATROPIUM/ALBUTEROL 0.5-2.5 MG/3 ML AMPUL NEB PRN ×3 (08:58→20:02)
[2018-03-14] MEDS: DOCUSATE SODIUM 100 MG CAPSULE PO SCH ×2 (09:43→18:27)
[2018-03-14] MEDS: POTASSIUM CHLORIDE 10 MEQ CAPSULE.ER PO SCH (09:43)
[2018-03-14] MEDS: FLUDROCORTISONE ACETATE 0.1 MG TABLET PO SCH (09:43)
[2018-03-14] MEDS: VITAMIN E (DL, ACETATE) 400 UNIT CAPSULE PO SCH (09:44)
[2018-03-14] MEDS: THEOPHYLLINE ANHYDROUS 300 MG TAB.SR.12H PO SCH (09:44)
[2018-03-14] MEDS: LANSOPRAZOLE 15 MG TAB.RAP.DR PO SCH (09:51)
[2018-03-14] MEDS ORDERED: FUROSEMIDE 20 MG TABLET PO SCH (10:00)
[2018-03-14] MEDS ORDERED: ALPHA LIPOIC ACID 200 MG PO SCH (10:00)
[2018-03-14] MEDS: MIDODRINE HCL 5 MG TABLET PO SCH ×2 (10:31→15:31)
--- NOTE | 2018-03-14 15:46 | EKG REPORT ---
SEVERITY:- ABNORMAL ECG - SINUS TACHYCARDIA RIGHT AXIS DEVIATION BORDERLINE R WAVE PROGRESSION, ANTERIOR LEADS NONSPECIFIC T ABNORMALITIES, DIFFUSE LEADS : Confirmed by: Olimpia Narayan MD 14-Mar-2018 15:45:29
[2018-03-14] MEDS ORDERED: TAMSULOSIN HCL 0.4 MG CAP.SR.24H PO SCH (18:00)
[2018-03-14] MEDS: PROPRANOLOL HCL 20 MG TABLET PO SCH (18:28)
[2018-03-15] MEDS: IPRATROPIUM/ALBUTEROL 0.5-2.5 MG/3 ML AMPUL NEB PRN (02:05)
[2018-03-15] MEDS: PROPRANOLOL HCL 20 MG TABLET PO SCH ×2 (05:15→17:56)
[2018-03-15] MEDS: LANSOPRAZOLE 15 MG TAB.RAP.DR PO SCH (05:17)
[2018-03-15] MEDS: MIDODRINE HCL 5 MG TABLET PO SCH ×3 (05:17→15:15)
[2018-03-15] MEDS ORDERED: LEVALBUTEROL HCL NEB 1.25 MG/3 ML AMPUL NEB ONE (08:47)
[2018-03-15] MEDS: IPRATROPIUM BROMIDE 0.02% NEB 0.5 MG/2.5 ML AMPUL NEB PRN ×3 (08:52→20:21)
[2018-03-15] MEDS: DOCUSATE SODIUM 100 MG CAPSULE PO SCH ×2 (09:47→17:56)
[2018-03-15] MEDS: POTASSIUM CHLORIDE 10 MEQ CAPSULE.ER PO SCH (09:47)
[2018-03-15] MEDS: LACTULOSE SYRUP 20 GM/30 ML UDCUP PO SCH ×2 (09:47→21:00)
[2018-03-15] MEDS: VITAMIN E (DL, ACETATE) 400 UNIT CAPSULE PO SCH (09:48)
[2018-03-15] MEDS: FLUDROCORTISONE ACETATE 0.1 MG TABLET PO SCH (09:48)
[2018-03-15] MEDS: THEOPHYLLINE ANHYDROUS 300 MG TAB.SR.12H PO SCH (09:48)
[2018-03-15] MEDS ORDERED: PROPRANOLOL HCL 20 MG TABLET PO ONE (10:30)
--- NOTE | 2018-03-15 11:02 | PDOC PROGRESS REPORT ---
Subjective Progress Note for:: 03/15/18 Subjective:: CHATO BRAXTON is a 62 year old male with past medical history of COPD and liver cirrhosis due to alpha-1 antitrypsin deficiency associated with recurrent ascites, diastolic heart failure, hypotension dependent on midodrine, chronic PE and DVT on ornament setter anticoagulation. And has multiple admissions due to hypotension and ascites. Earlier this year patient was evaluated at [facility] in [place] for OLT. Unfortunately he was a poor candidate for liver transplantation and it was suggested that he could be referred to palliative care and possible hospice care however patient is not ready for that yet. He also have history of diuretic resistant recurrent ascites with prior paracentesis however his paracentesis frequency has been limited due to his chronic hypotension. He presented to ED on 03/14/2018 and that he was not feeling very well and he decided to check his pulse and it was running in 140s on home monitoring. He waited at home to see if his tachycardia would improve however it did not and he decided to come to ED for further evaluation. He was also feeling some chest tightness and shortness of breath. Last hospitalization was March 08, 2018 for recurrent hypotension and his propranolol was held. Which could be the cause of tachycardia. Is a complaining of worsening abdominal tightness and last paracentesis was on 03/06/2018. Only 1 L was removed due to hypotension. In the emergency department Dr. Narayan from the cardiology department was consulted and he recommended to give IV Cardizem 10 mg. Placed on Cardizem drip in the ED and his heart rates have improved to 120s and blood pressure 90-100/60s-70s. 03/15/2018. No acute events overnight. Baseline hypotensive but asymptomatic. On my encounter patient denies comfortably resting in his bed. He is p.o. tolerant and has had 3 bowel movements since yesterday. His shortness of breath has resolved however his abdominal distention remains. Denies any fever , chills, nausea, vomiting, diarrhea or constipation. Reason For Visit: TACHYCARDIA Physical Exam Vital Signs: Temp Pulse Resp BP Pulse Ox 98.2 F 99 16 97/51 L 95 03/15/18 07:29 03/15/18 08:54 03/15/18 08:54 03/15/18 07:29 03/15/18 08:54 Intake & Output 03/14/18 03/15/18 03/16/18 06:59 06:59 06:59 Intake Total 4 770 Balance 4 770 Weight 74.3 kg 74.5 kg General appearance: PRESENT: no acute distress, well-developed, well-nourished Head exam: PRESENT: atraumatic, normocephalic Respiratory exam: PRESENT: clear to auscultation porfirio. ABSENT: rales, rhonchi, wheezes Cardiovascular exam: PRESENT: tachycardia. ABSENT: diastolic murmur, rubs, systolic murmur Pulses: PRESENT: normal dorsalis pedis pul GI/Abdominal exam: PRESENT: ascites, distended, normal bowel sounds, soft. ABSENT: guarding, mass, organolmegaly, rebound, tenderness Neurological exam: PRESENT: alert, awake, oriented to person, oriented to place , oriented to time, oriented to situation, CN II-XII grossly intact. ABSENT: motor sensory deficit Skin exam: PRESENT: dry, intact, warm. ABSENT: cyanosis, rash Results Laboratory Results: 03/15/18 04:43 Magnesium 1.8 03/14/18 03/14/18 03/14/18 07:13 13:14 19:46 Troponin I < 0.012 < 0.012 < 0.012 Impressions: Chest X-Ray 03/14/18 00:33 IMPRESSION: No significant change compared to the prior exam. Emphysematous lungs with scarring along the right midlung. 2010 [employer]- All Rights Reserved Assessment & Plan - Diagnosis (1) Tachycardia Is this a current diagnosis for this admission?: Yes Plan: Improving. Negative cardiac workup on admission. Likely due to low intravascular volume caused by chronic cirrhosis and also the fact that patient was on chronic beta-blockers and it was stopped in the last admission. Restart beta-blockers guided by her blood pressure. Continue telemetry. (2) Chronic diastolic CHF (congestive heart failure) Is this a current diagnosis for this admission?: Yes Plan: Likely due to CAD and history of remote myocardial infarction. Grade 2/4 mild to moderate diastolic dysfunction with preserved ejection fraction. Last 2D echo on 07/19/2017. Patient was taken off of his Lasix due to his hypotension and last admission. Which may have exacerbated his volume overload. Will restart Lasix guided by his vitals and continue Midodrin and fludrocortisone. (3) Chronic hypotension Is this a current diagnosis for this admission?: Yes Plan: Likely due to combined liver and heart failure. Restart Midodrin and fludrocortisone. We will also restart beta-blockers as tolerated. Once patient's tachycardia has improved it may help his blood pressure. (4) Chronic hypoxemic respiratory failure Is this a current diagnosis for this admission?: Yes Plan: Due to multiple underlying comorbidities. Patient is on home oxygen. Continue supplemental oxygen. Restart home oxygen on discharge (5) Cirrhosis of liver Qualifiers: Hepatic cirrhosis type: other cirrhosis Qualified Code(s): K74.69 - Other cirrhosis of liver Is this a current diagnosis for this admission?: Yes Plan: End-stage renal failure. Due to alpha-1 antitrypsin deficiency. Diuretic resistance history of multiple paracentesis which has been limited lately due to coexisting hypotension. Patient had been evaluated for liver transplant however he was deemed a poor candidate. It was suggested that patient may transition to palliative care and hospice care. However patient is not ready to discuss the issue yet. The patient has mild ascites and may need another paracentesis however he is very hypotensive. If his hypotension improves we will consult radiology for therapeutic paracentesis. (6) [id number] deficiency Is this a current diagnosis for this admission?: Yes (7) Ascites Qualifiers: Ascites type: other type Qualified Code(s): R18.8 - Other ascites Is this a current diagnosis for this admission?: Yes Plan: As problem #2 (8) BPH (benign prostatic hyperplasia) Qualifiers: Lower urinary tract symptom presence: symptoms absent Qualified Code(s): N40.0 - Benign prostatic hyperplasia without lower urinary tract symptoms Is this a current diagnosis for this admission?: Yes Plan: Restart home meds. (9) DVT prophylaxis Is this a current diagnosis for this admission?: No Plan: SCD only as patient has history of HIT
--- NOTE | 2018-03-15 11:12 | RADIOLOGY REPORT (SQ) ---
EXAM DESCRIPTION: CHEST SINGLE VIEW COMPLETED DATE/TIME: 03/15/2018 10:52 am REASON FOR STUDY: sob COMPARISON: CT chest 05/03/2017 AP chest 03/14/2018, 03/02/2018 01/29/2018, 12/27/2017 EXAM PARAMETERS: NUMBER OF VIEWS: One view. TECHNIQUE: Single frontal radiographic view of the chest acquired. RADIATION DOSE: NA LIMITATIONS: None. FINDINGS: LUNGS AND PLEURA: End-stage appearance of obstructive lung disease with hyperinflation and hyperlucency. Stable scarring in the medial right lung base. Stable scarring just above the left h emidiaphragm. No acute infiltrates. No pleural effusion or pneumothorax. MEDIASTINUM AND HILAR STRUCTURES: No masses. Contour normal. HEART AND VASCULAR STRUCTURES: Heart normal in size. Normal vasculature. BONES: No acute findings. HARDWARE: None in the chest. OTHER: No other significant finding. IMPRESSION: End-stage appearance of obstructive lung disease. No acute changes TECHNICAL DOCUMENTATION: JOB ID: [id number] [employer]- All Rights Reserved Reading location - IP/workstation name: [email or web address]
[2018-03-15 13:14] LABS: ANION GAP 9 (5-19); BLOOD UREA NITROGEN 14 mg/dL (7-20); CALCIUM 8.1 mg/dL (8.4-10.2); CARBON DIOXIDE 28 mmol/L (22-30); CHLORIDE 102 mmol/L (98-107); GLUCOSE 81 mg/dL (75-110); POTASSIUM 3.7 mmol/L (3.6-5.0); SODIUM 139.1 mmol/L (137-145)
[2018-03-15] MEDS: LEVALBUTEROL HCL NEB 1.25 MG/3 ML AMPUL NEB PRN ×2 (13:52→20:21)
[2018-03-15] MEDS ORDERED: TAMSULOSIN HCL 0.4 MG CAP.SR.24H PO SCH (18:00)
[2018-03-16] MEDS: IPRATROPIUM BROMIDE 0.02% NEB 0.5 MG/2.5 ML AMPUL NEB PRN (02:06)
[2018-03-16] MEDS: LEVALBUTEROL HCL NEB 1.25 MG/3 ML AMPUL NEB PRN ×2 (02:06→07:48)
[2018-03-16 05:18] LABS: ABSOLUTE EOSINOPHILS # (AUTO) 0.4 10^3/uL (0.0-0.6); ABSOLUTE LYMPHOCYTES (AUTO) 0.8 10^3/uL (0.5-4.7); ABSOLUTE MONOCYTES (AUTO) 0.5 10^3/uL (0.1-1.4); ABSOLUTE NEUT (AUTO) 3.9 10^3/uL (1.7-8.2); BASOPHILS % (AUTO) 0.7 % (0-2); EOSINOPHILS % (AUTO) 7.6 % (0-6); HEMATOCRIT 37.3 % (37.9-51.0); HEMOGLOBIN 12.9 g/dL (13.5-17.0); LYMPHOCYTES % (AUTO) 14.2 % (13-45); MEAN CORPUSCULAR HEMOGLOBIN 34.2 pg (27.0-33.4); MEAN CORPUSCULAR HGB CONC 34.7 g/dL (32.0-36.0); MEAN CORPUSCULAR VOLUME 99 fl (80-97); MONOCYTES % (AUTO) 8.9 % (3-13); RED BLOOD COUNT 3.79 10^6/uL (4.35-5.55); RED CELL DISTRIBUTION WIDTH 15.2 % (11.5-14.0); SEGMENTED NEUTROPHILS % (AUTO) 68.6 % (42-78); TOTAL CELLS COUNTED % (AUTO) 100 %; WHITE BLOOD COUNT 5.8 10^3/uL (4.0-10.5)
[2018-03-16 05:39] LABS: PLATELET COUNT 87 10^3/uL (150-450)
[2018-03-16] MEDS: MIDODRINE HCL 5 MG TABLET PO SCH (06:40)
[2018-03-16] MEDS: LANSOPRAZOLE 15 MG TAB.RAP.DR PO SCH (06:40)
[2018-03-16] MEDS: PROPRANOLOL HCL 20 MG TABLET PO SCH (06:41)
[2018-03-16] MEDS: FLUDROCORTISONE ACETATE 0.1 MG TABLET PO SCH (09:49)
[2018-03-16] MEDS: POTASSIUM CHLORIDE 10 MEQ CAPSULE.ER PO SCH (09:49)
[2018-03-16] MEDS: DOCUSATE SODIUM 100 MG CAPSULE PO SCH (09:49)
[2018-03-16] MEDS: THEOPHYLLINE ANHYDROUS 300 MG TAB.SR.12H PO SCH (09:49)
[2018-03-16] MEDS: VITAMIN E (DL, ACETATE) 400 UNIT CAPSULE PO SCH (09:49)
[2018-03-16] MEDS: LACTULOSE SYRUP 20 GM/30 ML UDCUP PO SCH (09:50)
--- NOTE | 2018-03-16 09:56 | PDOC DISCHARGE SUMMARY ---
General - Admit/Disc Date/PCP Admission Date/Primary Care Provider: 03/14/18 04:07 ALFA GRANGER NP Discharge Date: 03/16/18 - Discharge Diagnosis (1) Tachycardia Is this a current diagnosis for this admission?: Yes (2) Chronic diastolic CHF (congestive heart failure) Is this a current diagnosis for this admission?: Yes (3) Chronic hypotension Is this a current diagnosis for this admission?: Yes (4) Chronic hypoxemic respiratory failure Is this a current diagnosis for this admission?: Yes (5) Cirrhosis of liver Is this a current diagnosis for this admission?: Yes (6) Dgrvp-[id number] deficiency Is this a current diagnosis for this admission?: Yes (7) Ascites Is this a current diagnosis for this admission?: Yes (8) BPH (benign prostatic hyperplasia) Is this a current diagnosis for this admission?: Yes (9) DVT prophylaxis Is this a current diagnosis for this admission?: No - Additional Information Home Medications: Alpha Lipoic Acid [Alpha Lipoic Acid 200 mg Tablet] 200 mg PO DAILY 03/14/18 Docusate Sodium [Colace 100 mg Capsule] 100 mg PO BID 03/14/18 Fludrocortisone Acetate [Florinef 0.1 mg Tablet] 0.05 mg PO DAILY 03/14/18 Ipratropium [place] [Atrovent 0.02% Neb 0.5 mg/2.5 ml Ampul] 0.5 mg NEB RTQ6 Lactulose [Cephulac Syrup 20 gm/30 ml Udcup] 20 gm PO Q8HP PRN 03/14/18 Levalbuterol HCl [Xopenex Neb 1.25 mg/3 ml Ampul] 1.25 mg NEB RTQ6 03/14/18 Midodrine HCl [Proamatine 5 mg Tablet] 15 mg PO Q8@0600,1100,1500 03/14/18 Omeprazole 20 mg PO DAILY 03/14/18 Potassium Chloride [Klor-Con M10] 30 mg PO DAILY 03/14/18 Propranolol HCl [Inderal 20 mg Tablet] 20 mg PO BID 03/14/18 Tamsulosin HCl [Flomax 0.4 mg Cap.sr] 0.4 mg PO QPM 03/14/18 Theophylline Anhydrous [Partha-Dur 300 mg Tab.sr] 300 mg PO DAILY 03/14/18 Vitamin E 400 unit PO DAILY 03/14/18 History of Present Illness History of Present Illness: CHATO BRAXTON is a 62 year old male with past medical history of COPD and liver cirrhosis due to alpha-1 antitrypsin deficiency associated with recurrent ascites, diastolic heart failure, hypotension dependent on midodrine, chronic PE and 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 And has multiple admissions due to hypotension and ascites. Earlier this year patient was evaluated at [facility] in [place] for OLT. Unfortunately he was a poor candidate for liver transplantation and it was suggested that he could be referred to palliative care and possible hospice care however patient is not ready for that yet. He also have history of diuretic resistant recurrent ascites with prior paracentesis however his paracentesis frequency has been limited due to his chronic hypotension. He presented to ED on 03/14/2018 and that he was not feeling very well and he decided to check his pulse and it was running in 140s on home monitoring. He waited at home to see if his tachycardia would improve however it did not and he decided to come to ED for further evaluation. He was also feeling some chest tightness and shortness of breath. Last hospitalization was March 08, 2018 for recurrent hypotension and his propranolol was held. Which could be the cause of tachycardia. He a complaining of worsening abdominal tightness and last paracentesis was on 03/06/2018. Only 1 L was removed due to hypotension. In the emergency department Dr. Narayan from the cardiology department was consulted and he recommended to give IV Cardizem 10 mg. Placed on Cardizem drip in the ED and his heart rates have improved to 120s and blood pressure 90-100/60s-70s. Hospital Course Hospital Course: (1) Tachycardia Resolved after being restarted on his beta-perry. Negative cardiac workup on admission. Likely due to low intravascular volume caused by chronic cirrhosis and also the fact that patient was on chronic beta- blockers and it was stopped in the last admission. Restarted beta-blockers and continued telemetry. (2) Chronic diastolic CHF (congestive heart failure) Likely due to CAD and history of remote myocardial infarction. Grade 2/4 mild to moderate diastolic dysfunction with preserved ejection fraction. Last 2D echo on 07/19/2017. Patient was taken off of his Lasix due to his hypotension and last admission. Which may have exacerbated his volume overload. Will restart Lasix guided by his vitals and continue Midodrin and fludrocortisone. (3) Chronic hypotension Asymptomatic. Likely due to combined liver and heart failure. Restart Midodrin and fludrocortisone. We will also restart beta-blockers as tolerated. Once patient's tachycardia has improved it may help his blood pressure. (4) Chronic hypoxemic respiratory failure Due to multiple underlying comorbidities. Patient is on home oxygen. Continue supplemental oxygen. Restart home oxygen on discharge (5) Cirrhosis of liver End-stage liver failure. Due to alpha-1 antitrypsin deficiency. Diuretic resistance history of multiple paracentesis which has been limited lately due to coexisting hypotension. Patient had been evaluated for liver transplant however he was deemed a poor candidate. It was suggested that patient may transition to palliative care and hospice care. However patient is not ready to discuss the issue yet. The patient has mild ascites and may need another paracentesis however he is very hypotensive. If his hypotension improves we will consult radiology for therapeutic paracentesis. (6) Kmxqj-[id number] deficiency Yes (7) Ascites As problem #2 (8) BPH (benign prostatic hyperplasia) She was encouraged to take his tamsulosin every 48 hours guided by his BPH symptoms as it may lower his blood pressure. (9) DVT prophylaxis SCD only as patient has history of HIT Physical Exam Vital Signs: Temp Pulse Resp BP Pulse Ox 97.8 F 71 18 85/55 L 95 03/16/18 07:08 03/16/18 07:48 03/16/18 07:48 03/16/18 07:08 03/16/18 07:48 Intake & Output 03/15/18 03/16/18 03/17/18 06:59 06:59 06:59 Intake Total 770 1052 318 Balance 770 1052 318 Weight 74.5 kg 75.1 kg General appearance: PRESENT: no acute distress, well-developed, well-nourished Respiratory exam: PRESENT: clear to auscultation porfirio. ABSENT: rales, rhonchi, wheezes Cardiovascular exam: PRESENT: RRR. ABSENT: diastolic murmur, rubs, systolic murmur GI/Abdominal exam: PRESENT: ascites, normal bowel sounds, soft. ABSENT: distended, guarding, mass, organolmegaly, rebound, tenderness Results Laboratory Results: 03/16/18 04:38 03/15/18 12:08 03/15/18 03/16/18 12:08 04:38 WBC 5.8 RBC 3.79 L Hgb 12.9 L Hct 37.3 L MCV 99 H MCH 34.2 H MCHC 34.7 RDW 15.2 H Plt Count 87 L Seg Neutrophils % 68.6 Lymphocytes % 14.2 Monocytes % 8.9 Eosinophils % 7.6 H Basophils % 0.7 Absolute Neutrophils 3.9 Absolute Lymphocytes 0.8 Absolute Monocytes 0.5 Absolute Eosinophils 0.4 Absolute Basophils 0.0 Sodium 139.1 Potassium 3.7 Chloride 102 Carbon Dioxide 28 Anion Gap 9 BUN 14 Creatinine 0.98 Est GFR ( Amer) > 60 Est GFR (Non-Af Amer) > 60 Glucose 81 Calcium 8.1 L 03/14/18 03/14/18 03/14/18 07:13 13:14 19:46 Troponin I < 0.012 < 0.012 < 0.012 Impressions: Chest X-Ray 03/15/18 00:00 IMPRESSION: End-stage appearance of obstructive lung disease. No acute changes Qualifiers - * PATIENT BEING DISCHARGED WITH ANY OF THE FOLLOWING DIAGNOSIS: No
[2018-03-16 10:04] VITALS: BP 84/50
== END 2018-03-16 10:23 | disposition home or self-care (01) | DRG 309 ==
LOC: ER 23:31 → EH 03-14 04:07 → INTOOBSV 03-14 04:07 → 3W 03-14 05:23 → OBSVTOIN 03-16 08:48
PROVIDERS: ADMIT Internal Medicine; ATTEND Internal Medicine
DX: R00.0 Tachycardia, unspecified (principal); J96.11 Chronic respiratory failure with hypoxia; I50.32 Chronic diastolic (congestive) heart failure; R18.8 Other ascites; Z99.81 Dependence on supplemental oxygen; I11.0 Hypertensive heart disease with heart failure; K74.69 Other cirrhosis of liver; J44.9 Chronic obstructive pulmonary disease, unspecified; I95.9 Hypotension, unspecified; E88.01 Alpha-1-antitrypsin deficiency; E11.9 Type 2 diabetes mellitus without complications; N40.0 Benign prostatic hyperplasia without lower urinary tract symptoms; M19.90 Unspecified osteoarthritis, unspecified site; F32.9 Major depressive disorder, single episode, unspecified; Z79.01 Long term (current) use of anticoagulants; Z79.899 Other long term (current) drug therapy; Z86.711 Personal history of pulmonary embolism; Z86.718 Personal history of other venous thrombosis and embolism; I25.2 Old myocardial infarction; F17.200 Nicotine dependence, unspecified, uncomplicated; Z88.0 Allergy status to penicillin; Z88.8 Allergy status to other drugs, medicaments and biological substances
CPT/HCPCS: 36415; 71045; 80048; 80053; 81001; 82550; 82553; 83735; 84484; 85025; 93005; 93010; 94640; 99285; G0378; J3490; J7620

== ENCOUNTER 2018-04-05 18:38 | Emergency (ER) | payer MEDICARE, OTHER ==
[2018-04-05] MEDS ORDERED: IPRATROPIUM/ALBUTEROL 0.5-2.5 MG/3 ML AMPUL NEB ONE (20:20)
--- NOTE | 2018-04-05 20:22 | ER Document Report ---
ED Medical Screen (RME) - General Chief Complaint: Chest Pain Stated Complaint: CHEST PAIN Time Seen by Provider: 04/05/18 20:16 Notes: Patient is a 62-year-old male with severe COPD, and cirrhosis as a result of alpha-1 anti-trypsin deficiency that presents to the emergency department for chief complaint of cough, shortness of breath and chest tightness. Patient states that the chest tightness and pain started earlier today, but is been having cough and worsening difficulty breathing, and pain on the left side which she thinks is related to his left lung. ROS: Other than noted above, the 12 point review of systems was reviewed with the patient and were negative, all pertinent findings are included in the HPI. PHYSICAL EXAMINATION: Vital signs reviewed. GENERAL: Chronically ill-appearing male, in mild respiratory distress HEAD: Atraumatic, normocephalic. EYES: Pupils equal round extraocular movements intact, conjunctiva are normal. ENT: Nares patent NECK: Normal range of motion CV: Heart regular rate and rhythm LUNGS: Mild respiratory distress, severely diminished lung sounds, increased work of breathing Musculoskeletal: Normal range of motion NEUROLOGICAL: Normal speech PSYCH: Normal mood, normal affect. MDM: Patient seen and examined for rapid initial assessment. Vital signs reviewed. A comprehensive ED assessment and evaluation of the patient, analysis of test results and completion of the medical decision making process will be conducted by additional ED providers. *Note is created using voice recognition software and may contain spelling, syntax or grammatical errors. TRAVEL OUTSIDE OF THE [place] IN LAST 30 DAYS: No - Related Data Allergies/Adverse Reactions: Heparin Analogues [Heparin Agents] Allergy (Severe, Verified 03/02/18 23:46) Thrombocytopenia heparinoids [Heparinoids] Allergy (Severe, Verified 03/02/18 23:46) Thrombocytopenia doxycycline Allergy (Intermediate, Verified 03/02/18 23:46) RED FACE AND SWELLING codeine [Codeine] Allergy (Unknown, Verified 03/02/18 23:46) GI upset Penicillins Allergy (Unknown, Verified 03/02/18 23:46) Swelling morphine Adverse Reaction (Verified 03/14/18 05:54) VOMITING promethazine [From Phenergan] Adverse Reaction (Verified 03/03/18 06:12) Past Medical History - Social History Family history: CAD - Past Medical History Cardiac Medical History: Reports: Hx Congestive Heart Failure, Hx DVT, Hx Heart Attack, Hx Hypertension - LOW, Hx Pulmonary Embolism Denies: Hx Coronary Artery Disease, Hx Hypercholesterolemia Pulmonary Medical History: Reports: Hx COPD - on 2L nasal cannula., Hx Pneumonia , Hx Respiratory Failure Denies: Hx Asthma, Hx Bronchitis, Hx Sleep Apnea, Hx Tuberculosis Neurological Medical History: Denies: Hx Cerebrovascular Accident, Hx Seizures Endocrine Medical History: Reports: Hx Diabetes Mellitus Type 2 - diet controlled.. 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 Denies: Hx Hepatitis Musculoskeltal Medical History: Reports Hx Arthritis Psychiatric Medical History: Reports: Hx Depression Infectious Medical History: Reports: Hx C-Diff, Hx MRSA. Denies: Hx Hepatitis Past Surgical History: Reports: Hx Cardiac Catheterization, Other - Left chest tube insertion; lung biopsy. - Immunizations Hx Diphtheria, Pertussis, Tetanus Vaccination: Yes History of Influenza Vaccine for 01/2017 - 06/2017 Season: Yes Influenza Administration Date for 01/2017 - 06/2017 Season: 01/23/17 Physical Exam - Vital signs Vitals: Temp Pulse Resp BP Pulse Ox 97.6 F 69 24 H 92/56 L 97 04/05/18 19:00 04/05/18 19:00 04/05/18 19:00 04/05/18 19:00 04/05/18 19:00 Course - Vital Signs Vital signs: Temp Pulse Resp BP Pulse Ox 97.6 F 69 24 H 92/56 L 97 04/05/18 19:00 04/05/18 19:00 04/05/18 19:00 04/05/18 19:00 04/05/18 19:00 Doctor's Discharge - Discharge Referrals: ALFA GRANGER, [employer]IGH [employer]ESSION[employer] [Primary Care Provider] - Follow up as needed
--- NOTE | 2018-04-05 20:52 | RADIOLOGY REPORT (SQ) ---
EXAM DESCRIPTION: CHEST SINGLE VIEW COMPLETED DATE/TIME: 04/05/2018 8:42 pm REASON FOR STUDY: shortness of breath COMPARISON: 03/15/2018. NUMBER OF VIEWS: One view. TECHNIQUE: Single frontal radiographic view of the chest acquired. LIMITATIONS: None. FINDINGS: LUNGS AND PLEURA: Chronic scarring. No focal infiltrates, masses or pneumothorax. No pleu ral effusion. Attenuated blood vessels and flattened jaya-diaphragms. MEDIASTINUM AND HILAR STRUCTURES: No masses. Contour normal. HEART AND VASCULAR STRUCTURES: Heart normal in size. Normal vasculature. BONES: No acute findings. HARDWARE: None in the chest. OTHER: No other significant finding. IMPRESSION: COPD. CHRONIC SCARRING. NO ACUTE RADIOGRAPHIC FINDING IN THE CHEST. TECHNICAL DOCUMENTATION: JOB ID: [id number] [employer]- All Rights Reserved Reading location - IP/workstation name: [email or web address]
--- NOTE | 2018-04-05 20:55 | EKG REPORT ---
SEVERITY:- ABNORMAL ECG - SINUS RHYTHM LOW VOLTAGE WITH RIGHT AXIS DEVIATION BORDERLINE R WAVE PROGRESSION, ANTERIOR LEADS BORDERLINE T ABNORMALITIES, ANT-LAT LEADS : Confirmed by: Olimpia Narayan MD 05-Apr-2018 20:54:26
[2018-04-05 21:42] LABS: ABSOLUTE BASOPHILS # (AUTO) 0.1 10^3/uL (0.0-0.2); ABSOLUTE EOSINOPHILS # (AUTO) 0.4 10^3/uL (0.0-0.6); ABSOLUTE LYMPHOCYTES (AUTO) 1.1 10^3/uL (0.5-4.7); ABSOLUTE MONOCYTES (AUTO) 0.6 10^3/uL (0.1-1.4); BASOPHILS % (AUTO) 0.7 % (0-2); EOSINOPHILS % (AUTO) 5.8 % (0-6); HEMATOCRIT 45.5 % (37.9-51.0); LYMPHOCYTES % (AUTO) 15.9 % (13-45); MEAN CORPUSCULAR HEMOGLOBIN 34.2 pg (27.0-33.4); MEAN CORPUSCULAR HGB CONC 35.1 g/dL (32.0-36.0); MEAN CORPUSCULAR VOLUME 98 fl (80-97); MONOCYTES % (AUTO) 8.1 % (3-13); PLATELET COUNT 106 10^3/uL (150-450); RED BLOOD COUNT 4.66 10^6/uL (4.35-5.55); RED CELL DISTRIBUTION WIDTH 15.3 % (11.5-14.0); SEGMENTED NEUTROPHILS % (AUTO) 69.5 % (42-78); TOTAL CELLS COUNTED % (AUTO) 100 %; WHITE BLOOD COUNT 7.2 10^3/uL (4.0-10.5)
[2018-04-05 21:58] LABS: ALANINE AMINOTRANSFERASE 19 U/L (21-72); ALKALINE PHOSPHATASE 168 U/L (38-126); ANION GAP 6 (5-19); ASPARTATE AMINO TRANSFERASE 43 U/L (17-59); BILIRUBIN,DIRECT 0.7 mg/dL (0.0-0.4); BILIRUBIN,TOTAL 2.5 mg/dL (0.2-1.3); BLOOD UREA NITROGEN 15 mg/dL (7-20); CALCIUM 8.5 mg/dL (8.4-10.2); CARBON DIOXIDE 31 mmol/L (22-30); CHLORIDE 101 mmol/L (98-107); GLUCOSE 98 mg/dL (75-110); POTASSIUM 3.8 mmol/L (3.6-5.0); SODIUM 138.3 mmol/L (137-145)
--- NOTE | 2018-04-05 23:24 | ER Document Report ---
ED General - General Chief Complaint: Chest Pain Stated Complaint: CHEST PAIN Time Seen by Provider: 04/05/18 20:16 Notes: Patient is a 62-year-old male with history of alpha-1 antitrypsin deficiency that has led to liver cirrhosis. He presents because he has been having some intermittent chest pain. Currently he is chest pain-free. He denies any more difficulty breathing than his baseline. He has not had much wheezing recently. He says that he does not have much appetite has not been eating or drinking as much. He was recently admitted to the hospital because of tachycardia which resolved after he was placed back on his beta-perry. At that time they recommended hospice but patient does not want to go forward with hospice at this time. He has chronic edematous legs and says this is not new or worsening. Denies any fevers or infections. No other complaints at this time. TRAVEL OUTSIDE OF THE [place] IN LAST 30 DAYS: No - Related Data Allergies/Adverse Reactions: Heparin Analogues [Heparin Agents] Allergy (Severe, Verified 03/02/18 23:46) Thrombocytopenia heparinoids [Heparinoids] Allergy (Severe, Verified 03/02/18 23:46) Thrombocytopenia doxycycline Allergy (Intermediate, Verified 03/02/18 23:46) RED FACE AND SWELLING codeine [Codeine] Allergy (Unknown, Verified 03/02/18 23:46) GI upset Penicillins Allergy (Unknown, Verified 03/02/18 23:46) Swelling morphine Adverse Reaction (Verified 03/14/18 05:54) VOMITING promethazine [From Phenergan] Adverse Reaction (Verified 03/03/18 06:12) Past Medical History - Social History Smoking Status: Former Smoker Chew tobacco use (# tins/day): No Frequency of alcohol use: None Drug Abuse: None Family History: Reviewed & Not Pertinent, CAD, Hypertension, Other - CHF Patient has suicidal ideation: No Patient has homicidal ideation: No - Past Medical History Cardiac Medical History: Reports: Hx Congestive Heart Failure, Hx DVT, Hx Heart Attack, Hx Hypertension - LOW, Hx Pulmonary Embolism Denies: Hx Coronary Artery Disease, Hx Hypercholesterolemia Pulmonary Medical History: Reports: Hx COPD - on 2L nasal cannula., Hx Pneumonia , Hx Respiratory Failure Denies: Hx Asthma, Hx Bronchitis, Hx Sleep Apnea, Hx Tuberculosis Neurological Medical History: Denies: Hx Cerebrovascular Accident, Hx Seizures Endocrine Medical History: Reports: Hx Diabetes Mellitus Type 2 - diet controlled.. 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 Denies: Hx Hepatitis Musculoskeletal Medical History: Reports Hx Arthritis Psychiatric Medical History: Reports: Hx Depression Infectious Medical History: Reports: Hx C-Diff, Hx MRSA. Denies: Hx Hepatitis Past Surgical History: Reports: Hx Cardiac Catheterization, Other - Left chest tube insertion; lung biopsy. - Immunizations Hx Diphtheria, Pertussis, Tetanus Vaccination: Yes Hx Pneumococcal Vaccination: 04/05/14 Review of Systems - Review of Systems Notes: My Normal Review Basic REVIEW OF SYSTEMS: CONSTITUTIONAL : Denies fever, chills, or sweats. Denies recent illness. EENT: Denies eye, ear, throat, or mouth pain or symptoms. Denies nasal or sinus congestion. CARDIOVASCULAR: Some chest pain RESPIRATORY: Denies cough, cold, or chest congestion. Denies shortness of breath, difficulty breathing, or wheezing. GASTROINTESTINAL: Denies abdominal pain. Denies nausea, vomiting, or diarrhea. MUSCULOSKELETAL: Denies neck or back pain or joint pain or swelling. SKIN: Denies rash or skin lesions. HEMATOLOGIC : Liver cirrhosis NEUROLOGICAL: Denies altered mental status or loss of consciousness. ALL OTHER SYSTEMS REVIEWED AND NEGATIVE. Physical Exam - Vital signs Vitals: Temp Pulse Resp BP Pulse Ox 97.6 F 69 24 H 92/56 L 97 04/05/18 19:00 04/05/18 19:00 04/05/18 19:00 04/05/18 19:00 04/05/18 19:00 - Notes Notes: General Appearance: Well nourished, alert, cooperative, no acute distress, no obvious discomfort. Vitals: reviewed, See vital signs table. Head: no swelling or tenderness to the head Eyes: PERRL, EOMI, Conjuctiva clear Mouth: No decreasd moisture Neck: Supple, no neck tenderness, No thyromegaly Lungs: No wheezing, No rales, No rhonci, No accessory muscle use, good air exchange bilaterally. Heart: Normal rate, Regular rythm, No murmur, no rub Abdomen: Abdomen is soft but distended from ascites. No abnormal pain to palpation of the abdomen. Extremities: strength 5/5 in all extremities, good pulses in all extremities, no swelling or tenderness in the extremities, chronic 3+ bilateral lower extremity edema. Skin: warm, dry, appropriate color, no rash Neuro: speech clear, oriented x 3, normal affect, responds appropriately to questions. Course - Re-evaluation Re-evalutation: 04/06/18 06:09 Talk to the patient at length. I talked to him again about his condition and the fact that he will continue to likely worsen unfortunately because of his liver cirrhosis and back condition. He is already been evaluated in [place] to determine if he is a liver transplant candidate and has been told that he is not. He has been offered hospice but says he prefers to do things on his own terms and does not want to go forward with hospice. Currently he is not having any chest pain. He looks well. His laboratory evaluation is unremarkable except for his chronic findings in association with his underlying disease process. Informed the patient that there is not a whole lot I can do at this time to really increase his appetite or to improve his underlying cirrhosis. He is very understanding of this. I informed him that we are more than happy to reevaluate him at any time if he is having a lot of pain or having difficulty breathing. Currently the patient has no dyspnea and his lung medellin are clear. His chest x-ray does not show any evidence of underlying fluid overload. Patient shows appreciation of this and agrees with plan to be discharged home. I encouraged him return to ER anytime. Dictation of this chart was performed using voice recognition software; therefore, there may be some unintended grammatical errors. - Vital Signs Vital signs: Temp Pulse Resp BP Pulse Ox 97.6 F 69 15 94/69 L 100 04/05/18 19:00 04/05/18 19:00 04/06/18 00:01 04/06/18 00:01 04/06/18 00:01 - Laboratory Result Diagrams: 04/05/18 21:29 04/05/18 21:29 Laboratory results interpreted by me: 04/05/18 04/05/18 21:29 21:29 MCV 98 H MCH 34.2 H RDW 15.3 H Plt Count 106 L Carbon Dioxide 31 H Total Bilirubin 2.5 H Direct Bilirubin 0.7 H ALT 19 L Alkaline Phosphatase 168 H Albumin 3.0 L - EKG Interpretation by Me Additional EKG results interpreted by me: 04/05/18 23:23 EKG is reviewed and interpreted by me. EKG shows sinus rhythm with a rate of [address] segment elevation or depression. No ischemic T wave inversions. MI interval, QRS duration, QT intervals are within normal range. Old EKG for comparison is from March 13, 2018. Discharge - Discharge Clinical Impression: Chest pain, Hypoalbuminemia, Hypotension Condition: Good Disposition: HOME, SELF-CARE Additional Instructions: Please return to the ER if you have worsening difficulty breathing, uncontrolled pain, or have any concerns. please follow up with your doctor on Tuesday for reevaluation. Referrals: ALFA GRANGER NP [Primary Care Provider] - 04/07/18
[2018-04-06 00:13] VITALS: BP 94/69
== END 2018-04-06 00:17 | disposition home or self-care (01) ==
LOC: ER 18:38
DX: R07.9 Chest pain, unspecified (principal); E88.09 Other disorders of plasma-protein metabolism, not elsewhere classified; I95.9 Hypotension, unspecified; R63.0 Anorexia; R60.0 Localized edema; Z87.891 Personal history of nicotine dependence; I50.9 Heart failure, unspecified; I11.0 Hypertensive heart disease with heart failure; J44.9 Chronic obstructive pulmonary disease, unspecified; E11.9 Type 2 diabetes mellitus without complications
CPT/HCPCS: 93005; 94640; 99285; 36415; 85025; 80053; 84484; 71045; 93010; A9270; J7620

== ENCOUNTER 2018-06-01 20:15 | Emergency (ER) | payer MEDICARE, OTHER ==
[2018-06-01] MEDS ORDERED: PREDNISONE 20 MG TABLET PO ONE (20:23)
[2018-06-01] MEDS ORDERED: IPRATROPIUM/ALBUTEROL 0.5-2.5 MG/3 ML AMPUL NEB ONE (20:23)
--- NOTE | 2018-06-01 21:09 | RADIOLOGY REPORT (SQ) ---
EXAM DESCRIPTION: XR CHEST 1 VIEW COMPLETED DATE/TME: 06/01/2018 20:23 CLINICAL HISTORY: 62 years, Male, SHORTNESS OF BREATH COMPARISON: 04/05/2018 chest NUMBER OF VIEWS: 1 TECHNIQUE: Portable chest LIMITATIONS: None. FINDINGS: Heart size is normal. Severe underlying emphysema with scarring bilaterally. No pneumothorax. No confluent airspace opacity IMPRESSION: Severe underlying emphysema. No acute cardiopulmonary process copyright 2010 [employer]- All Rights Reserved
[2018-06-01] MEDS: ALBUTEROL SULFATE 0.083% NEB 2.5 MG/3 ML AMPUL NEB SCH ×2 (21:30→23:11)
[2018-06-01 21:57] LABS: ABSOLUTE BASOPHILS # (AUTO) 0.1 10^3/uL (0.0-0.2); ABSOLUTE EOSINOPHILS # (AUTO) 0.3 10^3/uL (0.0-0.6); ABSOLUTE NEUT (AUTO) 6.1 10^3/uL (1.7-8.2); BASOPHILS % (AUTO) 0.9 % (0-2); EOSINOPHILS % (AUTO) 3.5 % (0-6); HEMATOCRIT 42.9 % (37.9-51.0); HEMOGLOBIN 14.9 g/dL (13.5-17.0); LYMPHOCYTES % (AUTO) 12.2 % (13-45); MEAN CORPUSCULAR HGB CONC 34.8 g/dL (32.0-36.0); MEAN CORPUSCULAR VOLUME 98 fl (80-97); MONOCYTES % (AUTO) 11.4 % (3-13); PLATELET COUNT 138 10^3/uL (150-450); RED BLOOD COUNT 4.39 10^6/uL (4.35-5.55); RED CELL DISTRIBUTION WIDTH 16.5 % (11.5-14.0); TOTAL CELLS COUNTED % (AUTO) 100 %; WHITE BLOOD COUNT 8.4 10^3/uL (4.0-10.5)
[2018-06-01 22:19] LABS: ALANINE AMINOTRANSFERASE 18 U/L (21-72); ALBUMIN 2.7 g/dL (3.5-5.0); ALKALINE PHOSPHATASE 217 U/L (38-126); ASPARTATE AMINO TRANSFERASE 32 U/L (17-59); BILIRUBIN,DIRECT 0.5 mg/dL (0.0-0.4); BILIRUBIN,TOTAL 1.6 mg/dL (0.2-1.3); BLOOD UREA NITROGEN 16 mg/dL (7-20); CALCIUM 8.2 mg/dL (8.4-10.2); GLUCOSE 98 mg/dL (75-110); POTASSIUM 3.9 mmol/L (3.6-5.0); TOTAL PROTEIN 6.4 g/dL (6.3-8.2)
[2018-06-01 22:26] LABS: ANION GAP 7 (5-19); CARBON DIOXIDE 28 mmol/L (22-30); CHLORIDE 102 mmol/L (98-107); SODIUM 137.1 mmol/L (137-145)
[2018-06-01] MEDS ORDERED: ALBUMIN HUMAN 12.5 GM/50 ML RTUINJ IV ONE (22:34)
--- NOTE | 2018-06-01 22:40 | ER Document Report ---
ED General - General Chief Complaint: Shortness Of Breath Stated Complaint: DIFFICULTY BREATHING Time Seen by Provider: 06/01/18 22:20 Primary Care Provider: ALFA GRANGER NP [Primary Care Provider] - 06/05/18 Notes: Patient is a 62-year-old male well-known to me. He has a history of alpha-1 antitrypsin deficiency. 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 He has chronic difficulty breathing. He wears oxygen. Patient had gone to [facility] on to have some fluid pulled off his abdomen. He says since then he is felt weak. He says he thinks they gave him 1 or maybe 2 doses of albumin but is unsure. He says he pulled off approximately 5 L. He has had no fevers. No vomiting. Increasing weakness. Today he was getting out of the car and fell on his left side against a car door and has pain in his left ribs and left arm therefore came to the ER. No further complaints at this time. TRAVEL OUTSIDE OF THE [place] IN LAST 30 DAYS: No - Related Data Allergies/Adverse Reactions: Heparin Analogues [Heparin Agents] Allergy (Severe, Verified 03/02/18 23:46) Thrombocytopenia heparinoids [Heparinoids] Allergy (Severe, Verified 03/02/18 23:46) Thrombocytopenia doxycycline Allergy (Intermediate, Verified 03/02/18 23:46) RED FACE AND SWELLING codeine [Codeine] Allergy (Unknown, Verified 03/02/18 23:46) GI upset Penicillins Allergy (Unknown, Verified 03/02/18 23:46) Swelling morphine Adverse Reaction (Verified 03/14/18 05:54) VOMITING promethazine [From Phenergan] Adverse Reaction (Verified 03/03/18 06:12) Past Medical History - Social History Smoking Status: Former Smoker Chew tobacco use (# tins/day): No Frequency of alcohol use: None Drug Abuse: None Family History: Reviewed & Not Pertinent, CAD, Hypertension, Other - CHF Patient has suicidal ideation: No Patient has homicidal ideation: No - Past Medical History Cardiac Medical History: Reports: Hx Congestive Heart Failure, Hx DVT, Hx Heart Attack, Hx Hypertension - LOW, Hx Pulmonary Embolism Denies: Hx Coronary Artery Disease, Hx Hypercholesterolemia Pulmonary Medical History: Reports: Hx COPD - on 2L nasal cannula., Hx Pneumonia, Hx Respiratory Failure Denies: Hx Asthma, Hx Bronchitis, Hx Sleep Apnea, Hx Tuberculosis Neurological Medical History: Denies: Hx Cerebrovascular Accident, Hx Seizures Endocrine Medical History: Reports: Hx Diabetes Mellitus Type 2 - diet controlled.. 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 Denies: Hx Hepatitis Musculoskeletal Medical History: Reports Hx Arthritis Psychiatric Medical History: Reports: Hx Depression Infectious Medical History: Reports: Hx C-Diff, Hx MRSA. Denies: Hx Hepatitis Past Surgical History: Reports: Hx Cardiac Catheterization, Other - Left chest tube insertion; lung biopsy. - Immunizations Hx Diphtheria, Pertussis, Tetanus Vaccination: Yes Hx Pneumococcal Vaccination: 04/05/14 Review of Systems - Review of Systems Notes: My Normal Review Basic REVIEW OF SYSTEMS: CONSTITUTIONAL : Denies fever, chills, or sweats. Denies recent illness. EENT: Denies eye, ear, throat, or mouth pain or symptoms. Denies nasal or sinus congestion. CARDIOVASCULAR: Denies chest pain. RESPIRATORY: Denies cough, cold, or chest congestion. Denies shortness of breath, difficulty breathing, or wheezing. GASTROINTESTINAL: Chronic abdominal pain. Denies nausea, vomiting, or diarrhea. MUSCULOSKELETAL: Denies neck or back pain or joint pain or swelling. SKIN: Denies rash or skin lesions. NEUROLOGICAL: Denies altered mental status or loss of consciousness. Denies headache. Denies weakness or paralysis or loss of use of either side. Denies problems with gait or speech. Denies sensory or motor loss. ALL OTHER SYSTEMS REVIEWED AND NEGATIVE. Physical Exam - Vital signs Vitals: Temp Pulse Resp BP Pulse Ox 98 F 100 22 H 86/47 L 100 06/01/18 20:27 06/01/18 20:27 06/01/18 20:27 06/01/18 20:27 06/01/18 20:27 - Notes Notes: General Appearance: Well nourished, alert, cooperative, no acute distress, no ob vious discomfort. Patient is very thin and weak appearing except for his distended abdomen which is distended due to his cirrhosis and ascites. Vitals: reviewed, See vital signs table. Eyes: PERRL, EOMI, Conjuctiva clear Mouth: No decreasd moisture Lungs: No wheezing, No rales, No rhonci, No accessory muscle use, good air exchange bilaterally. Heart: Normal rate, Regular rythm, No murmur, no rub Chest wall: Some pain to palpation over the left ribs. No redness or swelling. No crepitance. Pain is mainly over the mid axillary line and posterior rib angles over ribs 3 through 6. Abdomen: Normal BS, soft, No rigidity, some abdominal distention due to chronic ascites. No redness or inflammation to the abdominal wall. Mild tenderness over the lower abdomen with more increased tenderness around the umbilical area. Does have umbilical hernia which is reducible. Site from previous paracentesis in the right lower quadrant and the site is not erythematous or red. No signs of infection around the previous paracentesis site. Extremities: strength 5/5 in all extremities, good pulses in all extremities, no swelling or tenderness in the extremities, 3+ bilateral lower extremity edema. Skin: warm, dry, appropriate color, no rash Neuro: speech clear, oriented x 3, normal affect, responds appropriately to questions. Course - Re-evaluation Re-evalutation: 06/02/18 00:40 Patient was finally able to get some sleep and rest here. He says he still has some pain but does not want any opiate type pain medication. He says morphine makes him feel very bad and unwell. Also his blood pressure runs low and therefore opiates would probably drop him further. I did offer him Tylenol. I told him that despite liver failure he can still take half dose Tylenol and is appropriate. Patient says he does not want to try the Tylenol. X-ray does not show any evidence of rib injury. Blood pressure systolically is in the 80s. I did trend through his previous visits and his blood pressures systolically typically in the 80s. He will occasionally hit 90. His says at home his blood pressure is almost always in the 80s. She says occasionally he will get into the low 90s but that is rare. I did give a low albumin. This is helped him feel a bit better. I again talked to him about hospice. I informed him that hospice could be beneficial to help with pain control and help her more comfortable. I feel that he does not have a whole lot longer to live. Every time I see him he is much more ill-appearing and is becoming thinner. He is aware of this as well. He says he still does not want to go forward with [facility] and he would just continue with his follow-ups at [facility] for paracentesis and continue with his current treatment regimen. I informed him that I am more happy to evaluate him at any time that he is welcome to return to ER anytime for anything is some more than happy to help him. He does not have any fevers. He has no signs of infection other than some white cells in his urine however he has no urinary symptoms. I will send the urine for culture. He does not have a leukocytosis on his blood work. Dictation of this chart was performed using voice recognition software; therefore, there may be some unintended grammatical errors. - Vital Signs Vital signs: Temp Pulse Resp BP Pulse Ox 98 F 100 22 H 86/47 L 94 06/01/18 20:27 06/01/18 20:27 06/01/18 20:27 06/01/18 20:27 06/01/18 23:09 - Laboratory Result Diagrams: 06/01/18 21:43 06/01/18 21:43 Laboratory results interpreted by me: 06/01/18 06/01/18 06/01/18 21:43 21:43 23:01 MCV 98 H MCH 34.0 H RDW 16.5 H Plt Count 138 L Lymphocytes % 12.2 L Est GFR (Non-Af Amer) 59 L Calcium 8.2 L Total Bilirubin 1.6 H Direct Bilirubin 0.5 H ALT 18 L Alkaline Phosphatase 217 H Albumin 2.7 L Urine Urobilinogen 2.0 H Ur Leukocyte Esterase LARGE H Discharge - Discharge Clinical Impression: Rib pain on left side, [id number] deficiency Liver failure Qualifiers: Liver failure chronicity: chronic Hepatic coma status: without hepatic coma Qualified Code(s): K72.10 - Chronic hepatic failure without coma Ascites Qualifiers: Ascites type: other type Qualified Code(s): R18.8 - Other ascites Condition: Stable Disposition: HOME, SELF-CARE Additional Instructions: Your rib xray is negative for fracture. Please follow up with your doctor on Tuesday for reevaluation. Please return to the ER if you have worsening difficulty breathing, fevers, or feel that you are worsening in any way. Referrals: ALFA GRANGER NP [Primary Care Provider] - 06/05/18
[2018-06-01 23:34] LABS: APPEARANCE,URINE CLEAR; BILIRUBIN,URINE NEGATIVE (NEGATIVE); COLOR,URINE YELLOW; GLUCOSE, URINE NEGATIVE (NEGATIVE); KETONES,URINE NEGATIVE (NEGATIVE); LEUKOCYTE ESTERASE,URINE LARGE (NEGATIVE); NITRITE,URINE NEGATIVE (NEGATIVE); PROTEIN,URINE NEGATIVE (NEGATIVE); URINE SPECIFIC GRAVITY 1.019
[2018-06-02 01:29] VITALS: BP 98/69
--- NOTE | 2018-06-02 12:36 | EKG REPORT ---
SEVERITY:- ABNORMAL ECG - SINUS RHYTHM MULTIPLE ATRIAL PREMATURE COMPLEXES LOW VOLTAGE WITH RIGHT AXIS DEVIATION BORDERLINE T ABNORMALITIES, ANT-LAT LEADS : Confirmed by: Stepan Benson 02-Jun-2018 12:35:20
== END 2018-06-02 01:31 | disposition home or self-care (01) ==
LOC: ER 20:15
DX: R07.81 Pleurodynia (principal); E88.01 Alpha-1-antitrypsin deficiency; K72.10 Chronic hepatic failure without coma; R18.8 Other ascites; R06.02 Shortness of breath; R06.00 Dyspnea, unspecified; E11.9 Type 2 diabetes mellitus without complications; I11.0 Hypertensive heart disease with heart failure; I50.9 Heart failure, unspecified; Z88.0 Allergy status to penicillin; Z88.6 Allergy status to analgesic agent; Z87.891 Personal history of nicotine dependence; Z86.14 Personal history of Methicillin resistant Staphylococcus aureus infection; Z86.718 Personal history of other venous thrombosis and embolism; I25.2 Old myocardial infarction
CPT/HCPCS: 93005; 99284; 94640; 36415; 87086; 85025; 80053; 81001; 71045; 93010; P9047; A9270 ×3; J7512; J7620